=== PATIENT | female | born 2000 | race Caucasian/White ===

== ENCOUNTER 2023-06-17 19:12 | Emergency (ER) | payer OTHER, SELFPAY ==
[2023-06-17 19:13] VITALS: BP 128/81; BP 141/93; PULSE 104; PULSE 114; RESP 14; TEMP 36.1; O2SAT 98; O2SAT 99
--- NOTE | 2023-06-17 20:00 | US_ITS ---
STUDY: FIRST TRIMESTER OBSTETRICAL ULTRASOUND REASON FOR EXAM: Female, 23 years old pelvic pain, bleeding LMP: TECHNIQUE: Transvaginal TECHNICAL QUALITY: Adequate. PRIOR ULTRASOUND: None. FINDINGS: There is no evidence for intrauterine gestational sac. The uterus measures 8.4 x 5.7 x 5.1 cm. Endometrial lining is heterogeneous. There is no demonstrated uterine fibroid. The cervix is closed. The right ovary measures 3.7 x 1.8 x 1.6 cm. There is no right ovarian cyst. There is no visualized right adnexal mass or complex lesion. The left ovary measures 4.2 x 2.1 x 2.1 cm. There is no left ovarian cyst. There is no visualized left adnexal mass or complex lesion. There is no fluid in the cul de sac. US/Transvaginal w/Preg US IMPRESSION: No evidence for intrauterine gestational sac or ectopic .. Heterogeneous appearance to endometrial lining. No definitive evidence for retained products of conception however clinical correlation recommended Electronically Signed: Brandon Taylor MD at 20:48 EDT Reading Location ID and State: [address] [place] [address] Tel , Service support ,
--- NOTE | 2023-06-17 20:07 | EDS_ITS ---
HPI HPI - Female History of Present Illness Chief Complaint: Vag Bld, Preg Informant: patient Pain Pain: Positive for Pelvic Pain Onset: Today Context: Gradual Onset Timing: Continuous Quality: Positive for Cramping Location: Suprapubic Current Severity: Mild Maximum Severity: Mild Bleeding Issue: Positive for Vaginal bleeding Onset: Today (4 hrs or so) Context: Gradual Onset Current Severity: Mild Associated Symptoms Last known menstrual period: 05/08/23 Test: Positive, Urine and Home Sexually: Positive for Active and Single Partner P: 1 Ab: 0 Narrative Narrative: 23-year-old female with a positive home test last week when she missed her cycle now having pain and bleeding that started today. No other systemic symptoms. No injuries or falls. with this . Has not seen OB yet during this . Unknown blood type. No presyncope or lightheadedness. Pain is nonlateralizing. PFSH PFSH Medical History no medical history no medical history Allergy/AdvReac Type Severity Reaction Status Date / Time No Known Allergies Allergy Verified 06/17/23 19:13 Surgical History no surgical history Social History Smoking Status: Never smoker ROS ROS ED Constitutional Constitutional ED: Denies chills or fever(s) Eyes Eyes: Denies change in vision or diplopia ENT ENT ED: Denies rhinorrhea or sore throat Cardiovascular Cardiovascular: Denies chest pain, lightheadedness, palpitations or syncope Respiratory/Chest Respiratory/Chest: Denies cough or dyspnea Gastrointestinal Gastrointestinal: Reports abdominal pain; Denies diarrhea, nausea or vomiting Genitourinary Genitourinary ED: Denies dysuria or hematuria Musculoskeletal Musculoskeletal: Denies back pain or neck pain Integumentary Denies abscess or rash Neurologic Neurologic: Denies headache(s), paresthesias or weakness Psychiatric Psychiatric: Denies anxiety or suicidal thoughts EXAM Physical Exam Const Vital Signs: 06/17/23 19:13 06/17/23 19:13 06/17/23 20:13 Temperature 97 F L Temperature Source Temporal Pulse Rate 114 H 104 H 65 Respiratory Rate 14 14 18 Blood Pressure 141/93 H 128/81 H 128/82 H Blood Pressure Mean 109 96 97 Pulse Ox 99 98 97 Oxygen Delivery Method Room Air Room Air Room Air 06/17/23 21:00 Temperature Temperature Source Pulse Rate 65 Respiratory Rate 18 Blood Pressure 132/69 H Blood Pressure Mean 90 Pulse Ox 99 Oxygen Delivery Method Room Air Positive well nourished and well developed Constitutional Narrative: Well-appearing General Appearance ED: well developed and NAD HEENT Reports moist mucous membranes normocephalic and atraumatic Eyes PERRL and EOMs intact bilaterally Neck full ROM and supple Resp normal respiratory effort and clear to auscultation bilaterally Cardio regular rate, regular rhythm and no murmurs Rate: Negative for tachycardic GI non-tender and non-distended Auscultation: normoactive bowel sounds Palpation: soft Back/Spine General Back: other FROM Extremity normal to inspection General Extremety ED: Negative for edema, pulses abnormal or tenderness General Extremity: Negative for edema or pulses abnormal Neuro oriented x3, CN's II-XII intact bilaterally and no sensory deficits noted Sensorium / Orientation: awake and alert Motor Exam: strength 5/5 throughout Psych mental status grossly normal Skin no rashes or lesions noted and no wounds MDM MDM MDM Narrative Medical decision making narrative: Given the patient is only 5 weeks along, ultrasound obtained in addition to quantitative hCG to evaluate the possibility of intrauterine versus miscarriage versus ectopic, or other. Urinalysis shows no signs of infection. Quantitative hCG is 1873, indicating we should likely be seen something on ultrasound, however I reviewed the images and the report which I agree with, it basically shows no intrauterine process and no definite adnexal process. The differential here includes a completed AB, versus an early intrauterine which is unlikely given the quantitative hCG, versus an early ectopic. The next indicated test would be a 48-hour repeat quantitative hCG. Pauline morales that would put her at Tuesday night, so after discussion with Azra Peña with OB with whom the patient has an appointment next week, this will be Tuesday morning. Her blood type is O+, RhoGAM not indicated. Patient is stable clinically and hemodynamically, answered all questions at the bedside with her significant other, she is comfortable with that plan. History & Record Review Additional record(s) reviewed:: No prior records (No prior record of blood type measurement) Lab Data Attestation: I reviewed the patient's lab results. Labs: Laboratory Results - last 24 hr 06/17/23 06/17/23 19:55 20:50 HCG, Quant 1873 H Urine Color Red Urine Clarity Cloudy Urine pH 7.0 Ur Specific [place] 1.015 Urine Protein 100 H Urine Glucose (UA) Normal Urine Ketones Negative Urine Occult Blood 250 H Urine Nitrite Negative Urine Bilirubin Negative Urine Urobilinogen Normal Ur Leukocyte Esterase 25 H Urine RBC > 100 SEEN Urine WBC 0-5 SEEN Ur Squamous Epith Cells 0 SEEN Urine Bacteria RARE Urine Mucus 0 SEEN Blood Type O POSITIVE Radiography Diagnostic Testing: Clinical Impression(s) from Imaging Studies Obstetrics Ultrasound 06/17/23 20:00 IMPRESSION: No evidence for intrauterine gestational sac or ectopic .. Heterogeneous appearance to endometrial lining. No definitive evidence for retained products of conception however clinical correlation recommended Electronically Signed: Brandon Taylor MD at 20:48 EDT Reading Location ID and State: [address] [place] [address] Tel , Service support , Discharge Plan Triage Chief Complaint: Vag Bld, Preg ED Provider: Fernando Shirley Dx/Rx/DC Orders Clinical Impression: Bleeding in early Instructions: Miscarriage Threatened Primary Care Provider: Care Physician,No Primary Referrals: Azra Peña CNM [Med Staff - Adv Practice Prof] - 06/20/23 (If you do not hear from OB, call Tuesday morning to see what time they want you to come.)
[2023-06-17 20:13] VITALS: BP 128/82; PULSE 65; RESP 18; O2SAT 97
[2023-06-17 20:54] LABS: hCG Titer Quant., Serum 1873 mIU/mL (1-3)
[2023-06-17 21:00] VITALS: BP 132/69; PULSE 65; RESP 18; O2SAT 99
[2023-06-17 21:01] LABS: Mucous, Urine 0 SEEN /hpf (<or=2+); Squamous Epithelial Cells - UA 0 SEEN /hpf (5-10)
[2023-06-17 21:08] LABS: Color, Urine Red (Yellow); Glucose, Dipstick Normal (Normal); Ketone-Dipstick Negative (Negative); Leukocyte Esterase-Dipstick 25 /ul (Negative); Nitrite-Dipstick Negative (Negative); Occult Blood-Urine 250 /ul (Negative); Protein-Dipstick 100 mg/dl (Negative); Specific Gravity, Urine 1.015 (1.002-1.030); Urine Bilirubin Dipstick Negative (Negative); Urine Clarity Cloudy (Clear); Urine Urobilinogen Normal (Normal)
[2023-06-17 21:16] LABS: Red Blood Cells-Urine > 100 SEEN /hpf (0-5)
[2023-06-17 21:17] LABS: White Blood Cells 0-5 SEEN /hpf (0-5)
[2023-06-17 21:18] LABS: Bacteria RARE /hpf (None Seen)
[2023-06-17 22:00] VITALS: BP 122/80; PULSE 74; RESP 18; O2SAT 100
[2023-06-17 23:00] VITALS: BP 132/60; PULSE 85; RESP 17; O2SAT 100
[2023-06-17 23:09] VITALS: BP 118/87; PULSE 65; RESP 18; TEMP 36.6; O2SAT 97
--- NOTE | 2023-06-17 23:09 | ED.RN ---
Upon standing, pt passed large clot onto floor. Pt tearful, RN reassurance and comfort provided. Discussed with hemodialysis charge nurse and Dr. Shirley. Pt still d/c but instructed to follow up with OB on Tuesday.
== END 2023-06-17 23:10 | disposition home or self-care (01) ==
PROVIDERS: Emergency Provider Emergency Medicine; Visit Provider Emergency Medicine
DX: O20.9 Hemorrhage in early pregnancy, unspecified (principal); Z3A.00 Weeks of gestation of pregnancy not specified
CPT/HCPCS: 76817; 81001; 84702; 86900; 86901; 99283

== ENCOUNTER → 2023-06-20 | Outpatient (CLI) | payer SELFPAY ==
[2023-06-20 11:35] LABS: hCG Titer Quant., Serum 861 mIU/mL (1-3)
== END | disposition home or self-care (01) ==
PROVIDERS: Referring Provider Advanced Practice Midwife; Visit Provider Advanced Practice Midwife
DX: O20.9 Hemorrhage in early pregnancy, unspecified (principal); Z3A.00 Weeks of gestation of pregnancy not specified
CPT/HCPCS: 36415; 84702

== ENCOUNTER → 2023-07-05 | Outpatient (CLI) | payer SELFPAY ==
[2023-07-05 15:18] LABS: hCG Titer Quant., Serum 7076 mIU/mL (1-3)
== END | disposition home or self-care (01) ==
PROVIDERS: Referring Provider Advanced Practice Midwife; Visit Provider Advanced Practice Midwife
DX: O03.9 Complete or unspecified spontaneous abortion without complication (principal)
CPT/HCPCS: 36415; 84702

== ENCOUNTER → 2023-07-06 | Outpatient (CLI) | payer SELFPAY ==
--- NOTE | 2023-07-06 13:56 | US_ITS ---
STUDY: FIRST TRIMESTER OBSTETRICAL ULTRASOUND REASON FOR EXAM: Female, 23 years old r/o ectopic -- Intermittent spotting with -- HcG went down and them up LMP: May 08, 2023. TECHNIQUE: Transvaginal TECHNICAL QUALITY: Adequate. PRIOR ULTRASOUND: Comparison is made with prior sonogram dated June 17, 2023. FINDINGS: There is no demonstrated intrauterine gestational sac. There is no demonstrated yolk sac. The placenta is non-visualized. There is no demonstrated embryo ( pole). The estimated gestation age (EGA) by LMP is 8 weeks, 3 days. The estimated date of delivery (NATAN) by LMP is February 12, 2024.. The uterus measures 8 cm x 6 cm x 5 cm. The endometrium measures 16 mm. There is a 5 mm x 6 mm x 3 mm fluid collection within the endometrium. There is no demonstrated uterine fibroid. The cervix is closed. The right ovary measures 4 cm x 2.9 cm x 2.1 cm. There is no right ovarian cyst. There is no visualized right adnexal mass or complex lesion. The left ovary measures 4.9 cm x 2.6 cm x 2.2 cm. A dominant follicle is seen measuring 1.3 cm x 1.3 cm x 1 cm. This may be in keeping with regression of a corpus luteum cyst. There is no visualized left adnexal mass or complex lesion. There is no fluid in the cul de sac. US/Transvaginal w/Preg US IMPRESSION: No intrauterine gestational sac is seen. The endometrium measures 16 mm. There is a 5 mm x 6 mm x 3 mm fluid collection in the endometrium. Findings suggestive of a regressing corpus luteum cyst in the left ovary. Electronically Signed: Juan Montez MD at 15:11 EDT ,
== END | disposition home or self-care (01) ==
PROVIDERS: Referring Provider Advanced Practice Midwife; Visit Provider Advanced Practice Midwife
DX: O20.9 Hemorrhage in early pregnancy, unspecified (principal); Z3A.00 Weeks of gestation of pregnancy not specified
CPT/HCPCS: 76817

== ENCOUNTER → 2023-07-07 | Outpatient (CLI) | payer SELFPAY ==
[2023-07-07 11:14] LABS: Absolute Neutrophil Count 6.5 X10^3/uL (2.0-7.7); Basophil# 0.06 X10^3/uL; Basophil% 0.6 % (0-1); Eosinophil# 0.27 X10^3/uL; Eosinophils% 2.9 % (0-5); Hematocrit 39.6 % (37-47); Hemoglobin 12.7 g/dL (12.0-15.0); Lymphocyte % 19.2 % (19-41); Mean Corp Hgb Conc 32.1 g/dL (32-36); Mean Corpuscular Hgb 29.3 pg (27.0-32.0); Mean Corpuscular Volume 91.5 fL (81-99); Mean Platelet Vol. 9.8 fl (6.2-12.0); Monocyte# 0.74 X10^3/uL; Monocyte% 7.9 % (0-10); NRBC Flagged by Analyzer 0 % (0-5); Neutrophil # 6.46 X10^3/uL (2.7-7.7); Platelet Count 356 K/mm3 (150-450); RBC Distribution Width CV 12.8 % (11.6-14.6); RBC Distribution Width SD 42.3 fl (35.1-43.9); Red Blood Count 4.33 M/mm3 (4.2-5.4); White Blood Count 9.4 K/mm3 (4.4-11.0)
[2023-07-07 12:01] LABS: hCG Titer Quant., Serum 8889 mIU/mL (1-3)
== END | disposition home or self-care (01) ==
PROVIDERS: Referring Provider Obstetrics & Gynecology; Visit Provider Obstetrics & Gynecology
DX: O20.9 Hemorrhage in early pregnancy, unspecified (principal); Z3A.00 Weeks of gestation of pregnancy not specified
CPT/HCPCS: 36415; 84702; 85025; 86850; 86900; 86901

== ENCOUNTER 2023-07-08 05:17 | Day surgery (SDC) | payer SELFPAY ==
--- NOTE | 2023-07-07 23:36 | HP.PCM_ITS ---
History and Physical Date of Admission: 07/07/23 MR#: [id number] Acct: [id number] Name: JERMAIN BAIRES Rep #: [id number] : 2000 Provider: Dr. Laya Pugh MD Age/Sex: 23/F [place] [facility] [place]: Signed Intake Vital Signs 06/16/2418:13 07/06/2410:23 07/06/2410:30 Height 5 ft 3 in 5 ft 3 in 5 ft 3 in Weight: 174 lb BMI 30.8 BP 130/85 H Intake Visit Reasons: PER TRIAGE Roll Plugger Required: No Is patient in pain?: No Allergies No Known Allergies Allergy (Verified 07/07/23 13:36) Medications ?Medication ?Instructions ?Recorded ?Confirmed ?Type NK 07/07/23 07/07/23 History Is last menstrual period known: Yes Last Menstrual Period: 05/08/23 Post menopausal: No : No PFSH Surgical History (Updated 07/07/23 @ 11:27 by Sophie Maldonado) History of delivery Family History (Updated 07/07/23 @ 11:30 by Sophie Maldonado) Mother AsthmaGrandfather COPD (chronic obstructive pulmonary disease) Diabetes Social History (Updated 07/07/23 @ 11:29 by Sophie Maldonado) adopted: No number of children: 1 current occupational status: employed current occupation: [employer] pets and animals: Yes pets and animals: dog(s) history of recent travel: No sexually active: Yes Smoking Status: Never smoker second hand exposure: No alcohol intake: current details: not during caffeine: Yes (rarely ) what type of physical activity do you participate in: walking seatbelt use: always do you feel safe at home: Yes additional social history: Spouse - Boubacar (tommy grullon) HPI PER TRIAGE Details: JERMAIN BAIRES is a 23 year old who presents for early bleeding and abnormal change in quants. she had a positive test in early june and was seen 06/16 in the ER and her quants went from 1870 to 800s to now in the 7 000s yesterday, repeat quant today is 8800. Ultrasound whos 4-5mm smmal possible GS in the lower uterine segment and very thickened 20mm lining with increased vascularity, suspicion for partial molar or miscarriage. LMP 05/08/23 Female Reproductive History Last Menstrual Period: 05/08/23 Cycle Length: 21-35 Bleeding Duration: 5 Questions: metorrhagia: No, sexually active: Yes, dyspareunia: No and PCB: No Menopausal Symptoms: No hot flashes, No night sweats, No weight change, No mood changes, No difficulty concentrating, No sleep problems and No change in libido History 2 Elective abortions Hx Para 1 Spontaneous abortions Hx # Term Pregnancies Ectopic pregnancies Hx # Pregnancies Multiple births # of living children 1 Past Pregnancies Del. Date Name GA/Weeks Outcome Route Bth Weight Gen Labor Lgth Anesthesia Del Locatn Provider FOB 07/14/22 Bora live - full term Female Bernabe Hamlin ROS Const Constitutional: Denies fatigue, fever(s), headache(s), increased appetite, poor appetite, night sweats, weight gain or weight loss ENT ENT: Reports system reviewed and no additional complaints, except as documented Cardio Card: Denies chest pain Resp Resp: Denies cough or dyspnea GI GI: Reports as per HPI; Denies abdominal pain, constipation, nausea or vomiting : Reports as per HPI; Denies difficulty voiding, dysuria, hot flashes, nipple discharge, urinary frequency, urinary incontinence, urinary hesitancy, urinary urgency, vaginal discharge, vaginal dryness, vaginal odor or vaginal pruritus Musc Musc: Denies arthralgias, back pain or muscle weakness Skin Skin/Breast: Denies change in hair, breast mass, breast pain, breast skin changes or nipple discharge Neuro Neuro: Reports system reviewed and no additional complaints, except as docume nted Psych Psych: Reports system reviewed and no additional complaints, except as documented; Denies change in libido or difficulty concentrating Endo Endo: Denies cold intolerance, excessive sweating, heat intolerance or polydipsia Nixon/Lymph Hematologic/Lymphatic: Denies easy bleeding, Denies easy bruising and Denies lym phadenopathy Exam Const General: cooperative, healthy appearing, comfortable, no acute distress and well developed Nutritional Appearance: average body habitus Orientation: alert [facility] Head: normal to inspection and normocephalic Ears: hearing grossly normal bilaterally and external ears normal Nose: external nose normal and nares normal Face and sinus: normal facial exam Neck Neck: normal visual inspection and trachea midline Thyroid: thyroid normal Chest Chest palpation & inspection: normal inspection of the chest Resp Effort & Inspection: normal respiratory effort Cardio Rate: regular rate GI Inspection: normal to inspection and non-distended Palpation: soft and no hepatosplenomegaly General: bladder normal to palpation External Female Exam: normal external appearance and normal appearance of the urethra Urethra: normal appearance of the urethra, normal palpation and no discharge Speculum Exam - Vagina: normal appearance of the vagina and normal vaginal discharge Speculum Exam - Cervix: normal appearance of the cervix and nontender Bimanual Exam- Vagina & Uterus: normal bimanual exam, uterine size normal, bladder normal to palpation, uterine shape normal, No tender, uterine mobility normal, consistency normal, normal palpation and non-tender Bimanual Exam- Adnexa, other: normal adnexae, adnexae mobile, no masses and normal Pelvic Support: normal Musc Other: gross motor intact no deficits, full bilateral strength Skin General: no rashes or lesions noted Neuro General: patient alert, patient awake, moves all extremities and no focal motor deficits Motor: muscle tone normal throughout Extrem General: normal to inspection and no pedal edema Psych Appearance: grossly normal Mental Status: mental status grossly normal Affect: normal affect Speech and Movement: speech and movement normal Coding Level of Care Code Off vis,new,level 4 Diagnoses Incomplete O03.4 Assessment and Plan Assessment and Plan (1) Incomplete : Status: Acute Comment: possible partial mole recommend proceeding with suction d and c. Plan After discussing the patient's diagnosis and treatment plan options, patient wishes to proceed with surgical management. I have discussed with the patient the risks, benefits, and alternatives of the procedure which include but are not limited to risks of anesthesia, bleeding, infection, possible damage to bowel, bladder, or surrounding vasculature which could lead to additional surgery to evaluate any complications. Patient agrees to procedure and wishes to proceed. ACOG/uptodate references given for additional information regarding procedure. recommend being NPO and having path on hand for frozen specimen to ensure there is an IUP and not an ectopic. will perform tomorrow am, reviewed bleeding precautions for overnight if needs to come in tonight for care. 07/07/23 1050 <Electronically signed by Laya Pugh MD> Date Laya Pugh MD UPDATE- I have seen the patient and performed any clinically relevant updates to the history and physical exam. Laya Pugh MD
--- NOTE | 2023-07-08 | POC_PTH ---
PATIENT: JERMAIN BAIRES LOC: [facility] [place] U#:[id number] AGE/SX: 23/ ROOM: RE07/08/[address]: Dr. Laya Pugh MD : 2000 BED: DIS: 07/08/2023 SPEC #: [id number] RECD: 07/08/23 08:26 STATUS: TRINITY RENNY #: [id number] GERRI: 07/08/23 00:[address]: Laya Pugh DEPT: SURGICAL PATHOLOGY RECD BY: Torsten Davila ENTERED: 07/08/23 08:26 SP TYPE: PROD CONC OTHR DR: No Primary Care Phys Tissues: Product of conception, NOS Procedures: Frozen Section (charge) Surgery Specimen Level IV HEADER OPERATION: Suction, D&C, Anora testing PRE-OP DIAGNOSIS: Incomplete , partial molar TISSUE SUBMITTED: Products of conception for Anora testing and frozen section FROZEN SECTION DIAGNOSIS Products of conception, curettage: Mixed normal and hydropic villi present. MICROSCOPIC DIAGNOSIS Endometrium, curettage: Chorionic villi with focal hydropic change. AM:mr 07/12/23 COMMENT The specimen is evaluated at the time of collection by Dr. Pugh. Specimen sent to [facility] for testing. Report viewable in patient's EMR. MICROSCOPIC DESCRIPTION Slides are reviewed. GROSS DESCRIPTION Received fresh for frozen section consultation labeled with the patient's name is a specimen designated Products of conception. The specimen consists of multiple irregular fragments of pink-story soft tissue measuring in aggregate 7.0 x 7.0 x 0.6cm. Portions of the tissue are submitted for frozen section consultation in one block. Additional sales representative groceries sections are submitted for permanent in cassettes 2-9- the remainder of the specimen. BLANCA/ 07/08/2023 TC:5 CPT:93677
[2023-07-08 06:21] VITALS: BP 105/72; PULSE 88; RESP 16; TEMP 36.7; O2SAT 100; BMI 29.3
[2023-07-08] MEDS: Lactated Ringers 1,000 ML 15 ML IV (06:25)
[2023-07-08] MEDS: Doxycycline 100 MG CAPSULE PO (06:25)
[2023-07-08] MEDS: Lidocaine 1% (30 ml sdv) 30 ML Vial (07:50)
--- NOTE | 2023-07-08 08:01 | PCM.OPRPT ---
Problems Associated Problem List Diagnoses (1) Incomplete : (2) Partial hydatidiform mole: Report of Operation Date of Procedure: 07/08/23 Pre-Operative Diagnosis: see problem list Post-Operative Diagnosis: same, partial mole Surgery/Procedure Performed:: Suction dilation and curettage Description of Surgical Findings:: no FHT present, Nonviable 8 weeks Surgeon: Laya Pugh industrial analyst: None Type of Anesthesia: Local MAC Special Medications: none Specimen's removed: POC Drains: none Estimated Blood Loss (mL): 50 Fluids Replaced: crystalloid Description of Procedure: Patient was taken to the operating room and placed under MAC local anesthesia. She was prepped and draped in the normal sterile fashion the dorsal lithotomy position. Bladder was drained of clear urine and anterior lip of the cervix was grasped and the uterus sounded to 9 cm. Cervix was progressively dilated to allow passage of a 9mm suction curette. Progressive passes were made removing the retained products of conception without complication. Sharp curettage confirmed complete removal of the retained products. All instruments were removed from the vagina and excellent hemostasis was noted and the patient was taken to recovery in stable condition. Grafts/Implants Used: none Complications none Admit VTE Documentation VTE Present on Admission: No VTE Mechan Device Prophylaxis: SCD's Procedures Urinary/Genital 52xxx-59xxx: 18769 Trmt of incomplete Ab, any TM
--- NOTE | 2023-07-08 08:02 | DCINST_ITS ---
Discharge Instructions Diet Discharge Diet: No restrictions Activity Discharge Activity: Return to Normal Activity, May Shower and May Take a Tub Bath (after 1 week) May resume sexual activity in: 1-2 weeks Weight Bearing Status: Weight bearing as tolerated Lifting Restrictions: none Dressing / Incision Call your doctor if you observe: Fever of 101 or Higher, Using more than 1 pad per hour, Shortness of breath and Uncontrolled pain Follow Up Care Please Follow Up With: Laya Pugh MD When: Call [phone] to schedule appointment. Test Results: Test results from this visit will be discussed in further detail at your follow- up appointment, if applicable. Discharge Plan Admission Attending Provider: Laya Pugh Primary Care Provider: Care Physician,No Primary Instructions Print Language: Chilean Discharge Orders/Prescriptions Prescriptions: No Action NK Referrals / Follow Up: Care Physician,No Primary [Primary Care Provider] - Disposition Disposition (needs filled in before D/C Order can be placed): Home, Self Care
[2023-07-08 08:21] VITALS: BP 105/72; BP 107/67; PULSE 87; RESP 16; TEMP 36.9; O2SAT 99
[2023-07-08 08:25] VITALS: BP 105/72; BP 106/64; PULSE 88; RESP 16; O2SAT 99
[2023-07-08 08:30] VITALS: BP 105/72; BP 115/71; PULSE 72; RESP 16; TEMP 36.8; O2SAT 98
[2023-07-08 09:38] VITALS: BP 105/72
== END 2023-07-08 09:39 | disposition home or self-care (01) ==
LOC: SDC 05:19 → AC 05:19
PROVIDERS: Referring Provider Obstetrics & Gynecology; Visit Provider Obstetrics & Gynecology
PROC: (CPT 59812; principal; 2023-07-08 07:15)
DX: O03.4 Incomplete spontaneous abortion without complication (principal); O01.1 Incomplete and partial hydatidiform mole
CPT/HCPCS: 59812; 01965; 88305; 88331; J7120; J2405

== ENCOUNTER → 2023-07-15 | Outpatient (CLI) | payer SELFPAY ==
[2023-07-15 09:33] LABS: hCG Titer Quant., Serum 142 mIU/mL (1-3)
== END | disposition home or self-care (01) ==
LOC: LAB 08:24
PROVIDERS: Visit Provider Obstetrics & Gynecology
DX: O03.4 Incomplete spontaneous abortion without complication (principal)
CPT/HCPCS: 36415; 84702

== ENCOUNTER → 2023-07-22 | Outpatient (CLI) | payer SELFPAY ==
[2023-07-22 11:15] LABS: hCG Titer Quant., Serum 12 mIU/mL (1-3)
== END | disposition home or self-care (01) ==
LOC: PAVLAB 10:30
PROVIDERS: Referring Provider Obstetrics & Gynecology; Visit Provider Obstetrics & Gynecology
DX: O03.4 Incomplete spontaneous abortion without complication (principal)
CPT/HCPCS: 36415; 84702

== ENCOUNTER → 2023-07-29 | Outpatient (CLI) | payer SELFPAY ==
[2023-07-29 10:52] LABS: hCG Titer Quant., Serum 2 mIU/mL (1-3)
== END | disposition home or self-care (01) ==
LOC: PAVLAB 10:07
PROVIDERS: Visit Provider Obstetrics & Gynecology
DX: O03.4 Incomplete spontaneous abortion without complication (principal)
CPT/HCPCS: 36415; 84702

== ENCOUNTER → 2024-02-20 | Outpatient (CLI) | payer SELFPAY ==
[2024-02-20 09:17] LABS: hCG Titer Quant., Serum 559 mIU/mL (1-3)
== END | disposition home or self-care (01) ==
PROVIDERS: Referring Provider Obstetrics & Gynecology; Visit Provider Obstetrics & Gynecology
DX: Z34.90 Encounter for supervision of normal pregnancy, unspecified, unspecified trimester (principal)
CPT/HCPCS: 36415; 84702

== ENCOUNTER → 2024-02-22 | Outpatient (CLI) | payer SELFPAY ==
[2024-02-22 10:54] LABS: hCG Titer Quant., Serum 1012 mIU/mL (1-3)
== END | disposition home or self-care (01) ==
LOC: LAB 09:04
PROVIDERS: Referring Provider Obstetrics & Gynecology; Visit Provider Obstetrics & Gynecology
DX: Z34.90 Encounter for supervision of normal pregnancy, unspecified, unspecified trimester (principal)
CPT/HCPCS: 36415; 84702

== ENCOUNTER → 2024-02-27 | Outpatient (CLI) | payer SELFPAY ==
[2024-02-27 10:02] LABS: hCG Titer Quant., Serum 5287 mIU/mL (1-3)
== END | disposition home or self-care (01) ==
PROVIDERS: Referring Provider Obstetrics & Gynecology; Visit Provider Obstetrics & Gynecology
DX: Z34.90 Encounter for supervision of normal pregnancy, unspecified, unspecified trimester (principal); Z3A.00 Weeks of gestation of pregnancy not specified
CPT/HCPCS: 36415; 84702

== ENCOUNTER → 2024-03-05 | Outpatient (CLI) | payer SELFPAY ==
--- NOTE | 2024-03-05 07:08 | US_ITS ---
INDICATION: viability, dating EXAMINATION: Ultrasound US OB Transvaginal TECHNIQUE: Transvaginal (for optimal evaluation of the adnexa) pelvic ultrasound was performed. Grayscale, spectral waveform, and color flow Doppler evaluation of the adnexa. COMPARISON: July 06, 2023 LMP: [January 17, 2024 FINDINGS: UTERUS: 10.0 x 6.7 x 5.1 cm. RIGHT OVARY: 2.8 x 3.8 x 3.0 cm. Doppler flows within normal limits. There appears to be a corpus luteal cyst within the right ovary. LEFT OVARY: 2.2 x 3.8 x 2.4 cm. Doppler flows within normal limits. FREE FLUID: None. INTRAUTERINE GESTATIONAL SAC: Single. The mean sac diameter measures 1.73 cm YOLK SAC: Identified and measures 0.34 cm. POLE: Identified. 0.47 cm. ESTIMATED GESTATION AGE: 6 weeks and 4 days. HEART MOTION: 117 bpm. PLACENTA: Not visualized due to age. US/Transvaginal w/Preg US IMPRESSION: Single live intrauterine . Estimated gestational age is 6 weeks and 4 days. Electronically Signed: Ira Li MD at 8:08 EST ,
[2024-03-05 09:35] LABS: hCG Titer Quant., Serum 20796 mIU/mL (1-3)
== END | disposition home or self-care (01) ==
PROVIDERS: Obstetrics & Gynecology; Referring Provider Nurse Practitioner Women's Health; Visit Provider Nurse Practitioner Women's Health
DX: Z34.90 Encounter for supervision of normal pregnancy, unspecified, unspecified trimester (principal)
CPT/HCPCS: 36415; 76817; 84702

== ENCOUNTER → 2024-03-16 | Outpatient (CLI) | payer SELFPAY ==
[2024-03-19 21:06] LABS: Chlamydia By Nucleic Acid AMP Negative (Negative); Gonococcus By Nucleic Acid AMP Negative (Negative)
[2024-03-23 13:02] LABS: HPV Reflexed? NOT INDICATED
== END | disposition home or self-care (01) ==
PROVIDERS: Referring Provider Obstetrics & Gynecology; Visit Provider Obstetrics & Gynecology
DX: O09.90 Supervision of high risk pregnancy, unspecified, unspecified trimester (principal); Z3A.00 Weeks of gestation of pregnancy not specified
CPT/HCPCS: 87086; 87088; 87491; 87591; 88175; G0145

== ENCOUNTER → 2024-03-29 | Outpatient (CLI) | payer SELFPAY ==
[2024-03-29 12:29] LABS: Absolute Lymphocyte Count 1.68 X10^3/uL (0.83-4.51); Absolute Neutrophil Count 7.5 X10^3/uL (2.0-7.7); Basophil# 0.06 X10^3/uL; Basophil% 0.6 % (0-1); Eosinophil# 0.42 X10^3/uL; Hematocrit 38.5 % (37-47); Hemoglobin 12.7 g/dL (12.0-15.0); Lymphocyte # 1.68 X10^3/ul (0.83-4.51); Lymphocyte % 16.1 % (19-41); Mean Corpuscular Hgb 29.7 pg (27.0-32.0); Mean Corpuscular Volume 90.2 fL (81-99); Mean Platelet Vol. 10.2 fl (6.2-12.0); Monocyte# 0.79 X10^3/uL; Monocyte% 7.6 % (0-10); NRBC Flagged by Analyzer 0 % (0-5); Neutrophil # 7.47 X10^3/uL (2.7-7.7); Neutrophil % 71.3 % (47-70); Platelet Count 322 K/mm3 (150-450); RBC Distribution Width CV 12.6 % (11.6-14.6); RBC Distribution Width SD 41.1 fl (35.1-43.9); Red Blood Count 4.27 M/mm3 (4.2-5.4); White Blood Count 10.5 K/mm3 (4.4-11.0)
[2024-03-29 13:08] LABS: HIV - WCH Non-Reactive (Nonreactive); Hepatitis B Surface Antigen Non-Reactive (Nonreactive); Hepatitis C Antibody Non-Reactive (Nonreactive); Rubella IgG Reactive (Nonreactive); Syphilis Antibodies Non-reactive
[2024-03-29 13:58] LABS: Hemoglobin A1c 5.1 % (3.8-5.6)
== END | disposition home or self-care (01) ==
LOC: BWCLAB 11:26
PROVIDERS: Obstetrics & Gynecology; Referring Provider Obstetrics & Gynecology; Visit Provider Obstetrics & Gynecology
DX: O99.211 Obesity complicating pregnancy, first trimester (principal); E66.9 Obesity, unspecified; Z3A.00 Weeks of gestation of pregnancy not specified; O09.91 Supervision of high risk pregnancy, unspecified, first trimester
CPT/HCPCS: 36415; 83036; 85025; 86703; 86762; 86780; 86803; 86850; 86900; 86901; 87340

== ENCOUNTER → 2024-07-30 | Outpatient (CLI) | payer SELFPAY ==
[2024-07-30 17:13] LABS: Absolute Lymphocyte Count 1.89 X10^3/uL (0.83-4.51); Absolute Neutrophil Count 8.2 X10^3/uL (2.0-7.7); Basophil# 0.05 X10^3/uL; Basophil% 0.5 % (0-1); Eosinophil# 0.17 X10^3/uL; Eosinophils% 1.5 % (0-5); Hematocrit 32.6 % (37-47); Hemoglobin 10.6 g/dL (12.0-15.0); Lymphocyte # 1.89 X10^3/ul (0.83-4.51); Mean Corp Hgb Conc 32.5 g/dL (32-36); Mean Corpuscular Hgb 30.1 pg (27.0-32.0); Mean Corpuscular Volume 92.6 fL (81-99); Mean Platelet Vol. 10.3 fl (6.2-12.0); Monocyte# 0.67 X10^3/uL; NRBC Flagged by Analyzer 0 % (0-5); Neutrophil # 8.23 X10^3/uL (2.7-7.7); Neutrophil % 74.3 % (47-70); Platelet Count 283 K/mm3 (150-450); RBC Distribution Width CV 13.9 % (11.6-14.6); RBC Distribution Width SD 46.8 fl (35.1-43.9); Red Blood Count 3.52 M/mm3 (4.2-5.4); White Blood Count 11.1 K/mm3 (4.4-11.0)
[2024-07-30 17:45] LABS: Glucose Challenge Gest 1H 50g 114 mg/dL (70-140); HIV Nonreactive (Nonreactive); Syphilis Antibodies Nonreactive (Nonreactive)
== END | disposition home or self-care (01) ==
LOC: BWCLAB 15:31
PROVIDERS: Obstetrics & Gynecology; Referring Provider Obstetrics & Gynecology; Visit Provider Obstetrics & Gynecology
DX: O09.92 Supervision of high risk pregnancy, unspecified, second trimester (principal); Z13.1 Encounter for screening for diabetes mellitus; Z3A.00 Weeks of gestation of pregnancy not specified
CPT/HCPCS: 36415; 82950; 85025; 86703; 86780

== ENCOUNTER → 2024-09-24 | Outpatient (CLI) | payer SELFPAY | END | disposition home or self-care (01) | LOC: LABSPEC 15:25 | PROVIDERS: Referring Provider Advanced Practice Midwife; Visit Provider Advanced Practice Midwife | DX: O09.93 Supervision of high risk pregnancy, unspecified, third trimester (principal); Z3A.35 35 weeks gestation of pregnancy | CPT/HCPCS: 87081 ==

== ENCOUNTER 2024-10-20 04:45 | Inpatient (IN) | payer SELFPAY ==
[2024-10-20] VITALS (50 sets, daily range): BP systolic 105–153; BP diastolic 57–88; PULSE 79–149; RESP 14–18; TEMP 36.3–37.1; O2SAT 77–100; BMI 39.3
--- OUTSIDE RECORDS SUMMARY | 2024-10-20 04:20 | XMS RPT_ITS | CCD ---
Author Organization [facility] Team Providers Care Oral Surgery Physician Name Role Phone O'VILLALBA, MIRIAM CARD SERVICES SPECIALIST Primary Care Unavailable O'VILLALBA, MIRIAM CARD SERVICES SPECIALIST Attending Unavailable O'VILLALBA, MIRIAM CARD SERVICES SPECIALIST Admitting Unavailable O'VILLALBA, MIRIAM CARD SERVICES SPECIALIST Primary Care Unavailable O'VILLALBA, MIRIAM CARD SERVICES SPECIALIST Attending Unavailable O'VILLALBA, MIRIAM CARD SERVICES SPECIALIST Admitting Unavailable O'VILLALBA, MIRIAM CARD SERVICES SPECIALIST Primary Care Unavailable O'VILLALBA, MIRIAM CARD SERVICES SPECIALIST Attending Unavailable O'VILLALBA, MIRIAM CARD SERVICES SPECIALIST Admitting Unavailable PHYSICIAN, NONE Primary Care Physician Unavailab varun CIFUENTES MD, CASH Gutierrez Attending Unavailab le PHYSICIAN, NONE Primary Care Unavailable DAYTON REYNOSO, TERE Attending Unavail able PHYSICIAN, NONE Primary Care Unavailable KHADIJAH NEVAREZ MD Consulting Unavailable LIONEL DO, HILARY Lo Admitting Unavailable MARCIN BENNETT Attending Unavailable PHYSICIAN, NONE Primary Care Unavailable ROBIN LOCKWOOD, DR BARBARA Paiz Consulting Unavailjoycelyn RAMÍREZ MD, ESTEVAN Consulting Unavailable FRANK LOCKWOOD, JOMAR Consulting Unavailable PALUTSYEIMY OLIVA DO Consulting Unavail able ILIANA SZYMANSKI, FEDERICO Attending Unavailable PHYSICIAN, NONE Primary Care Unavailable NO PRIMARY CARE, MD Primary Care Unavailable ZEN SIMPSON Attending Unavailable JORGE VALENTE S Referring Unavailable Care Physician, No Primary Primary Care Provider Unavailable Care Physician, No Primary Referring Provider Un available Dr. Holly Lindsey DO Attending Provider Dr. Holly Lindsey DO Referring Provider Dr. Laya Pugh MD Attending Provider [phone] Dr. Laya Pugh MD Referring Provider [phone] Jorge Valente CNM Attending Provider [phone] Linh Duffy Attending Provider [phone] Care Physician, No Primary Primary Care Provider Unavailable Care Physician, No Primary Referring Provider Un available Dr. Laya Pugh MD Attending Provider [phone] Vaibhav Ramirez DO, Dr. Barrera Attending Provider Dr. Laya Pugh MD Referring Provider [phone] Care Physician, No Primary Primary Care Provider Unavailable Care Physician, No Primary Referring Provider Un available Casey CNJorge Lo Attending Provider [phone] Care Physician, No Primary Primary Care Provider Unavailable Care Physician, No Primary Referring Provider Un available [place] CARD SERVICES SPECIALIST-CLinh Attending Provider [phone] Casey CNM, Jorge Referring Provider [phone] Care Physician, No Primary Primary Care Provider Unavailable Care Physician, No Primary Referring Provider Un available Keaton LOCKWOOD, Dr. Asif Attending Provider Care Physician, No Primary Referring Unava ilable Jorge Valente Attending Unavailable Care Physician, No Primary Primary Care Unava ilable Care Physician, No Primary Referring Unava ilable Laya Pugh Attending Unavailable Care Physician, No Primary Primary Care Unava ilable [place] CARD SERVICES SPECIALIST, Linh Attending Unavailable Care Physician, No Primary Primary Care Unava ilable Care Physician, No Primary Referring Unava ilable Care Physician, No Primary Primary Care Unava ilable Care Physician, No Primary Referring Unava ilable Jorge Valente Attending Unavailable Care Physician, No Primary Primary Care Unava ilable Laya Pugh Attending Unavailable Laya Pugh Referring Unavailable Care Physician, No Primary Primary Care Unava ilable [place] CARD SERVICES SPECIALIST, Linh Referring Unavailable [place] CARD SERVICES SPECIALIST, Linh Attending Unavailable Holly Lindsey Consulting Unavailabl e Laya Pugh Consulting Unavailable Holly Lindsey Admitting Unavailabl e Holly Lindsey Attending Unavailabl e Care Physician, No Primary Primary Care Unava ilable Care Physician, No Primary Primary Care Unava ilable Laya Pugh Attending Unavailable Laya Pugh Referring Unavailable Care Physician, No Primary Primary Care Unava ilable Laya Pugh Attending Unavailable Laya Pugh Referring Unavailable Jorge Valente Referring Unavailable Jorge Valente Attending Unavailable Care Physician, No Primary Primary Care Unava ilable Care Physician, No Primary Primary Care Unava ilable Care Physician, No Primary Referring Unava ilable Holly Lindsey Attending Unavailabl e Care Physician, No Primary Referring Unava ilable Care Physician, No Primary Primary Care Unava ilable Jorge Valente Attending Unavailable Care Physician, No Primary Referring Unava ilable [place] CARD SERVICES SPECIALIST, Linh Attending Unavailable Care Physician, No Primary Primary Care Unava ilable Care Physician, No Primary Referring Unava ilable Care Physician, No Primary Primary Care Unava ilable Laya Pugh Attending Unavailable Sebastiene VelHolly jerez Attending Unavailabl e Care Physician, No Primary Primary Care Unava ilable Care Physician, No Primary Referring Unava ilable Care Physician, No Primary Primary Care Unava ilable Marcela Patrick Attending Unavailable [place] CARD SERVICES SPECIALIST, Linh Attending Unavailable Care Physician, No Primary Primary Care Unava ilable Care Physician, No Primary Referring Unava ilable Holly Lindsey Attending Unavailabl e Care Physician, No Primary Primary Care Unava ilable Care Physician, No Primary Referring Unava ilable Care Physician, No Primary Referring Unava ilable Care Physician, No Primary Primary Care Unava ilable Jorge Valente Attending Unavailable Care Physician, No Primary Referring Unava ilable Laya Pugh Attending Unavailable Care Physician, No Primary Primary Care Unava ilable Care Physician, No Primary Primary Care Unava ilable Laya Pugh Attending Unavailable Laya Pugh Referring Unavailable Care Physician, No Primary Primary Care Unava ilable Holly Lindsey Referring Unavailabl e Holly Lindsey Attending Unavailabl e Care Physician, No Primary Primary Care Unava ilable Laya Pugh Attending Unavailable Marcchristel, Laya Referring Unavailable Medications Current Medications Medication Drug Class(es) Dates Sig (Normalized) Sig (Original) acetaminophen 325 mg / oxyCODONE hydrochloride 5 mg oral tablet (1 source) Opioid Agonist Start: 09-28-2021 End: 10-01-2021 take 1 tablet by mouth every six hours as needed for pain Percocet 5 mg-325 mg oral tablet Dose = 1 tab(s), Oral, q6h, PRN for pain, # 10 tab(s), 0 Refill(s), Post-op pain, 72.4 Start Date: 09/28/21 Stop Date: 10/01/21 Status: Ordered amoxicillin 500 mg oral capsule (1 source) Penicillin-class Antibacterial Start: 07-17-2022 End: 07-22-2022 amoxicillin 500 mg oral capsule Dose : 500 mg = 1 cap(s), Oral, q8hr, X 5 day(s), # 15 cap(s), 0 Refill(s), 07/22/22 4:00:00 EDT, [facility]: [id number], 160.6, cm, 07/12/22 11:28:00 EDT, Height Start Date: 07/17/22 Stop Date: 07/22/22 Status: Ordered ascorbic acid 1000 mg oral tablet (2 sources) Vitamin C Start: 09-28-2021 take 1 dose by mouth once daily Vitamin C Dose : 1,000 mg =, Oral, qDay, 0 Refill(s) Start Date: 09/28/21 Status: Ordered cholecalciferol 0.01 mg oral capsule (11 sources) Vitamin D Start: 03-02-2024 take 1 capsule by mouth once daily Cholecalciferol (Vitamin D3) 10 mcg (400 unit) capsule Active 10 ug PO daily March 02, 2024 1:00am docosahexaenoic acid 200 mg oral capsule (11 sources) Start: 03-02-2024 Docosahexaenoic Acid ( Dha) 200 mg capsule Active mg PO March 02, 2024 1:00am docusate sodium 100 mg oral tablet (1 source) Start: 09-28-2021 docusate sodium 100 mg oral tablet Dose : 100 mg = 1 tab(s), Oral, BID, # 40 tab(s), 0 Refill(s) Start Date: 09/28/21 Status: Ordered evening primrose oil 1000 mg oral capsule (2 sources) Start: 09-28-2021 take 1 capsule by mouth once daily Evening [place] Oil 1000 mg oral capsule Dose : 2,600 mg =, Oral, Daily, 0 Refill(s) Start Date: 09/28/21 Status: Ordered ferrous sulfate 325 mg oral tablet (7 sources) Start: 09-11-2024 take 1 tablet by mouth once daily Ferrous Sulfate 325 mg (65 mg iron) tablet Active 325 mg PO daily September 11, 2024 12:00am Start: 07-11-2022 IRON (ferrous sulfate 325 mg) 65 mg oral tablet Dose : 325 mg = 1 tab(s), Oral, BIDM, Take with food., # 60 tab(s), 3 Refill(s) Start Date: 07/11/22 Status: Ordered Fish Oils (1 source) Start: 09-28-2021 take 1 dose by mouth once daily [place]-3 Fish Oil Dose : 3,200 mg =, Oral, qDay, 0 Refill(s) Start Date: 09/28/21 Status: Ordered Folic Acid (1 source) Start: 07-11-2022 folic acid qDa y, 0 Refill(s) Start Date: 07/11/22 Status: Ordered ibuprofen 600 mg oral tablet (2 sources) Nonsteroidal Anti-inflammatory Drug Start: 07-17-2022 End: 07-31-2022 ibuprofen 600 mg oral tablet Dose : 600 mg = 1 tab(s), Oral, q6h, Take with food or milk., # 60 tab(s), 0 Refill(s), [facility]: [facility] #[id number], 160.6, cm, 07/12/22 11:28:00 EDT, Height, kg, 07/12/22 11:28:00 EDT, Dosing Weight Start Date: 07/17/22 Stop Date: 07/31/22 Status: Ordered Start: 09-28-2021 ibuprofen 600 mg oral tablet Dose : 600 mg = 1 tab(s), Oral, q6hr, PRN as needed for pain, Take with food or milk., # 40 cap(s), 0 Refill(s) Start Date: 09/28/21 Status: Ordered metroNIDAZOLE 500 mg oral tablet (1 source) Nitroimidazole Antimicrobial Start: 07-17-2022 End: 07-22-2022 metroNIDAZOLE 500 mg oral tablet Dose : 500 mg = 1 tab(s), Oral, q12h, X 5 day(s), # 10 tab(s), 0 Refill(s), 07/22/22 4:00:00 EDT, [facility]: [id number], 160.6, cm, 07/12/22 11:28:00 EDT, Height, 89 Start Date: 07/17/22 Stop Date: 07/22/22 Status: Ordered Misc Medication (2 sources) Start: 09-28-2021 Misc Medicatio n 0 Refill(s) Start Date: 09/28/21 Status: Ordered Start: 09-28-2021 [facility] [place] Medicatio n 0 Refill(s) Start Date: 09/28/21 Status: Ordered Organ Concentrates 80 mg capsule (11 sources) Start: 08-02-2023 Organ Concentr ates 80 mg capsule Active mg PO August 02, 2023 12:00am oxyCODONE hydrochloride 5 mg oral tablet (1 source) Opioid Agonist Start: 07-17-2022 End: 07-23-2022 oxyCODONE 5 mg oral tablet ( IMMEDIATE release ) Dose : 5 mg = 1 tab(s), Oral, q6hr, X 6 day(s), # 24 tab(s), 0 Refill(s), 07/23/22 4:01:00 EDT, [facility]: [facility] #[id number], Post-op pain, 160.6, cm, 07/12/22 11:28:00 EDT, Height, 89, kg, 07/12/22 11:28:00 EDT, Dosing Weight Start Date: 07/17/22 Stop Date: 07/23/22 Status: Ordered Multivitamins with Vitamin B Complex, Vitamin C, Minerals and L-Methylfolate oral capsule (2 sources) Start: 09-28-2021 take 1 capsule by mouth once daily Multivitamins with Vitamin B Complex, Vitamin C, Minerals and L-Methylfolate oral capsule Dose = 1 cap(s), Oral, Daily, 0 Refill(s) Start Date: 09/28/21 Status: Ordered Probiotic (1 source) Start: 09-28-2021 take 173 mg by mouth once daily Probiotic 173 mg, Oral, Daily, 0 Refill(s) Start Date: 09/28/21 Status: Ordered sennosides, half-way 8.6 mg oral tablet (1 source) Start: 07-17-2022 End: 08-06-2022 Senokot 8.6 mg oral tablet Dose : 8.6 mg = 1 tab(s), Oral, qHS, PRN for constipation, # 20 tab(s), 0 Refill(s), Pharmacy: [facility] #[id number], 160.6, cm, 07/12/22 11:28:00 EDT, Height, kg, 07/12/22 11:28:00 EDT, Dosing Weight Start Date: 07/17/22 Stop Date: 08/06/22 Status: Ordered Vitamin D with Minerals oral tablet (1 source) Start: 09-28-2021 take 1 tablet by mouth once daily Vitamin D with Minerals oral tablet Dose = 1 tab(s), Oral, qDay, # 30 tab(s), 0 Refill(s) Start Date: 09/28/21 Status: Ordered Problems Active Problems Problem Classification Problem Date Documented Date Episodic/Chronic Asthma (1 source) Asthma; Translations: [Unspecified asthma, uncomplicated] Chronic Contraceptive and procreative management (3 sources) Encounter for procreative management, unspecified; Translations: [Encounter for procreative management, unspecified] Onset: 06-19-2021 Episodic Female infertility (1 source) Female infertility, unspecified; Translations: [Female infertility, unspecified] Onset: 07-30-2021 Chronic Genitourinary symptoms and ill-defined conditions (1 source) Blood in urine; Translations: [Hematuria, unspecified] Episodic Hemorrhage during ; abruptio placenta; placenta previa (12 sources) Antepartum hemorrhage; Translations: [Hemorrhage in early , unspecified] 06-17-2023 Episodic Other complications of ; puerperium affecting management of mother (1 source) Labor and delivery complication by meconium in amniotic fluid; Translations: [Labor and delivery complicated by meconium in amniotic fluid] Episodic Other complications of ; puerperium affecting management of mother (1 source) Puerperal sepsis; Translations: [Puerperal sepsis] Episodic Other complications of ; puerperium affecting management of mother (1 source) Labor and delivery complicated by heart rate anomaly with meconium in amniotic fluid; Translations: [Abnormality in heart rate and rhythm complicating labor and delivery] Episodic Other complications of ; puerperium affecting management of mother (1 source) Encounter for delivery without indication; Translations: [Encounter for delivery without indication] Episodic Other complications of ; puerperium affecting management of mother (1 source) Disease of the respiratory system complicating , childbirth and/or the puerperium; Translations: [Diseases of the respiratory system complicating childbirth] Episodic Other complications of (20 sources) Maternal obesity complicating , childbirth and the puerperium, antepartum; Translations: [Obesity complicating , unspecified trimester] 05-09-2024 Chronic Comment on above: BMI 30.1, HgBA1C ord ered w/NOB Other complications of (1 source) Obesity complicating , second trimester; Translations: [Obesity complicating , second trimester] Onset: 10-16-2024 Chronic Other complications of (1 source) Obesity complicating , unspecified trimester; Translations: [Obesity complicating , unspecified trimester] Onset: 04-13-2024 Chronic Other complications of (1 source) Antepartum deep vein thrombosis; Translations: [Deep phlebothrombosis in , third trimester] Episodic Other complications of (1 source) condition affecting obstetrical care of mother; Translations: [Maternal care for abnormalities of the heart rate or rhythm, unspecified trimester, not applicable or unspecified] Episodic Other complications of (20 sources) High risk ; Translations: [Supervision of high risk , unspecified, unspecified trimester] 05-09-2024 Episodic Comment on above: PRR, , NATAN 10/23, PC: Bora, : Boubacar PRR, , NATAN 10/23, girl (name secret) PC: Bora, : Boubacar Other complications of (11 sources) Partial hydatidiform mole; 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 pat hology showed some hydropic villi- hcg negative. repeat in 1 month and if still negative can conceive. Other complications of (1 source) Supervision of high risk , unspecified, third trimester; Translations: [Supervision of high risk , unspecified, third trimester] Onset: 10-16-2024 Episodic Other complications of (1 source) Supervision of high risk , unspecified, second trimester; Translations: [Supervision of high risk , unspecified, second trimester] Onset: 08-15-2024 Episodic Other lower respiratory disease (20 sources) H/O: asthma; Translations: [Personal history of other diseases of the respiratory system] 03-02-2024 Episodic Comment on above: Childhood Other lower respiratory disease (1 source) Personal history of other diseases of the respiratory system; Translations: [Personal history of other diseases of the respiratory system] Onset: 10-16-2024 Episodic Other nutritional; endocrine; and metabolic disorders (1 source) Body mass index 30+ - obesity 07-12-2022 Chronic Other screening for suspected conditions (not mental disorders or infectious disease) (3 sources) Finding of screening status; Translations: [Encounter for screening, unspecified] Onset: 06-17-2022 Episodic Previous (1 source) Maternal care for unspecified type scar from previous delivery; Translations: [Maternal care for unspecified type scar from previous delivery] Onset: 10-16-2024 Episodic Residual codes; unclassified (1 source) Gestation period, 37 weeks; Translations: [37 weeks gestation of ] Episodic Residual codes; unclassified (1 source) Gestation period, 39 weeks; Translations: [39 weeks gestation of ] Episodic Residual codes; unclassified (20 sources) History of molar ; Translations: [Personal history of other complications of , childbirth and the puerperium] 03-16-2024 Episodic Comment on above: June 2023- after andreas very draw hcg to zero Residual codes; unclassified (1 source) Personal history of other complications of , childbirth and the puerperium; Translations: [Personal history of other complications of , childbirth and the puerperium] Onset: 10-16-2024 Episodic Residual codes; unclassified (1 source) 39 weeks gestation of ; Translations: [39 weeks gestation of ] Onset: 10-16-2024 Episodic Residual codes; unclassified (1 source) 38 weeks gestation of ; Translations: [38 weeks gestation of ] Onset: 10-11-2024 Episodic Residual codes; unclassified (1 source) 37 weeks gestation of ; Translations: [37 weeks gestation of ] Onset: 10-02-2024 Episodic Residual codes; unclassified (1 source) 35 weeks gestation of ; Translations: [35 weeks gestation of ] Onset: 09-24-2024 Episodic Residual codes; unclassified (1 source) 30 weeks gestation of ; Translations: [30 weeks gestation of ] Onset: 08-15-2024 Episodic Septicemia (except in labor) (1 source) Sepsis; Translations: [Sepsis, unspecified organism] Episodic Spontaneous (11 sources) with abortive outcome; Translations: [Incomplete spontaneous without complication] 08-02-2023 Episodic Comment on above: possible retained pr oducts or possible partial mole recommend proceeding with suction d and c. Umbilical cord complication (1 source) Umbilical cord complication during labor and delivery; Translations: [Labor and delivery complicated by cord around neck, without compression, not applicable or unspecified] Episodic Past or Other Problems Problem Classification Problem Date Documented Da te Episodic/Chronic Other complications of (1 source) Supervision of high risk , unspecified, unspecified trimester; Translations: [Supervision of high risk , unspecified, unspecified trimester] Onset: 04-13-2024 Episodic Other and delivery including normal (20 sources) ; Translations: [Encounter for supervision of normal first , unspecified trimester] Onset: 05-06-2022 07-12-2022 Episodic Comment on above: System added from do cumentation. Status documented as Yes on Admission NIPT low risk gbs neg, NIPT low ri sk Residual codes; unclassified (1 source) 12 weeks gestation of ; Translations: [12 weeks gestation of ] Onset: 04-13-2024 Episodic Results Test Name Value Interpretation Reference Range Facility [facility] Visit Reporton 10-16-2024 [facility] Visit Report [facility] [address], [address] [place] [address] OFFICE VISIT Date of Service: 10/16/24 MR#: [id number] Acct: [id number] Name: JERMAIN GERARD Rep #: [id number] 2 : 2000 Provider: Dr. Laya black MD Age/Sex: 24/F Location: [facility] Status: Signed Intake Vital Signs 08/28/24 14:41 10/11/24 07:57 10/16/24 13:32 Height 5 ft 5 in 5 ft 5 in 5 ft 5 in Weight: 220 lb 9 oz BMI 36.7 BP 123/77 H Intake Visit Reasons: 39wk ob Vp Scientific Required: No Is patient in pain?: No Allergies No Known Allergies Allergy (Verified 10/16/24 13:35) Medications ???Medication ???Instructions ???Recorded ???Confirmed ???Type organ concentrates 80 mg capsule mg PO 08/02/23 10/16/24 History cholecalciferol (vitamin D3) 10 10 mcg PO QDAY 03/02/24 10/16/24 H istory mcg (400 unit) capsule docosahexaenoic acid 200 mg mg PO 03/02/24 10/16/24 History capsule ( DHA) ferrous sulfate 325 mg (65 mg 325 mg PO QDAY 09/11/24 10/16/24 H istory iron) tablet Last Menstrual Period: 01/17/24 Zika: Zika virus screening: Negative : No PFSH PFSH Medical History Early stage of Partial hydatidiform mole Wears glasses Surgical History S/P D C (status post dilation and curettage) H/O laparoscopy History of delivery Family History Mother Asthma Grandfather COPD (chronic obstructive pulmonary disease) Diabetes Social History adopted: No household members: spouse and children number of children: 1 current occupational status: employed 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/hazards: No pets and animals: Yes pets and animals: dog(s) history of recent travel: Yes ([place] - Beginning of Feb 2024) out of state: Yes out of country: No sexually active: Yes Smoking Status: Never smoker second hand exposure: No alcohol intake: current alcohol intake frequency: holidays/special occasions only details: not during substance use type: does not use well-balanced diet: daily or most days caffeine: Yes eating out: rarely or never during the past year weight has: remained stable what type of physical activity do you participate in: walking frequency: 3-4 times per week duration: 15-30 minutes/day jerome/presybeterian: None seatbelt use: always do you feel safe at home: Yes additional social history: : Boubacar grullon History 3 Elective abortions Hx Para 1 Spontaneous abortions 1 Hx # Term Pregnancies Ectopic pregnancies Hx # Pregnancies Multiple births # of living children 1 Past Pregnancies Del. Date Name GA/Weeks Outcome Route Bth Weight Infant Gen Labor Lgth Anesthesia Del Locatn Provider FOB 07/14/22 Bora 39 live - full term 8lbs 6oz Female epidural Aultm an Dr. Deja Hamlin 06/08/23 6 molar Delivery Date: 07/14/22 Last Updated by: Marcela Patrick RN Csec d/t stuck in canal mec aspirate - NICU x6days Delivery Date: 06/08/23 Last Updated by: Marcela Patrick RN D C @ about 8weeks HPI 39wk ob Details: JERMAIN GERARD is a 24 year old who presents for routine OB visit. OB Visit NATAN Calculator Estimated Delivery Date Method Current WG Current Estimate 10/23/24 LMP (Certain) 39w 0d Other Estimates 10/25/24 Ultrasound #1 38w 5d Expected Delivery Route/Plan wants to try patient counseled regarding risks/benefits of trial of labor versus repeat . ACOG/uptodate education given to patient. 65 % likelihood of success per calculator TOLAC consent form signed: [] Specific Issue/Plans Covid status: [] Flu vaccine: [] Tdap vaccine: declined Rhogam: NA LARC form signed: yes Problem list reviewed and updated with the most current plan of care details and appropriate orders placed. Relevant counseling for the gestational age provided. Continue routine care and follow up unless otherwise noted in visit notes/problem list details Initial Weight: 192 lb Date -???-???-???-???-???- ???-???-???-???-???-? ??-???- EGA Weight BP Urine Prot -???-???-???-???-???- ???-???-???-???-???-? ??-???- Glucose FHR FuHt Pres Dilation -???-???-???-???-???- ???-???-???-???-???-? ??-???- Effaced St Visit Note 03/16/24 -???-???-???-???-???- ???-???-???-???-???-? ??-???- 8w 3d 192 lb 6 oz (+6 oz) 119/79 -???-???-???-???-???- ???-???-???-???-???-? ??-???- 165 -???-???-???-???-???- ???-???-???-???-???-? ??-???- JV- CRL cons istent with first ultrasoun (more content not included)... Normal [facility] - Chemistry and C hemistry - challengeOrdered By: Jorge Valente on 10-11-2024 Glucose Ql (U) Negative [facility] - UrinalysisOrder ed By: Jorge Valente on 10-11-2024 Protein Ql (U) Negative [facility] Visit Reporton 10-11-2024 [facility] Visit Report [facility] [address], [address] [place] [address] OFFICE VISIT Date of Service: 10/11/24 MR#: [id number] Acct: [id number] Name: JERMAIN GERARD Rep #: [id number] 2 : 2000 Provider: FABBY Stephen [facility] Age/Sex: 24/F Location: [facility] Status: Signed Intake Vital Signs 08/28/24 14:41 10/02/24 14:55 10/11/24 07:57 Height 5 ft 5 in 5 ft 5 in 5 ft 5 in Weight: 219 lb 9 oz BMI 36.5 BP 112/79 Intake Visit Reasons: 38wk ob *trying for Chief Complaint: 38wk OB Vp Scientific Required: No Is patient in pain?: No Allergies No Known Allergies Allergy (Verified 10/11/24 07:55) Medications ???Medication ???Instructions ???Recorded ???Confirmed ???Type organ concentrates 80 mg capsule mg PO 08/02/23 10/11/24 History cholecalciferol (vitamin D3) 10 10 mcg PO QDAY 03/02/24 10/11/24 H istory mcg (400 unit) capsule docosahexaenoic acid 200 mg mg PO 03/02/24 10/11/24 History capsule ( DHA) ferrous sulfate 325 mg (65 mg 325 mg PO QDAY 09/11/24 10/11/24 H istory iron) tablet Last Menstrual Period: 01/17/24 : No Have you fallen in the past year?: No PFSH PFSH Medical History Early stage of Partial hydatidiform mole Wears glasses Surgical History S/P D C (status post dilation and curettage) H/O laparoscopy History of delivery Family History Mother Asthma Grandfather COPD (chronic obstructive pulmonary disease) Diabetes Social History adopted: No household members: spouse and children number of children: 1 current occupational status: 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 pets and animals: Yes pets and animals: dog(s) history of recent travel: Yes ([place] - Beginning of Feb 2024) out of state: Yes out of country: No sexually active: Yes Smoking Status: Never smoker second hand exposure: No alcohol intake: current alcohol intake frequency: holidays/special occasions only details: not during substance use type: does not use well-balanced diet: daily or most days caffeine: Yes eating out: rarely or never during the past year weight has: remained stable what type of physical activity do you participate in: walking frequency: 3-4 times per week duration: 15-30 minutes/day jerome/presybeterian: None seatbelt use: always do you feel safe at home: Yes additional social history: : Boubacar grullon History 3 Elective abortions Hx Para 1 Spontaneous abortions 1 Hx # Term Pregnancies Ectopic pregnancies Hx # Pregnancies Multiple births # of living children 1 Past Pregnancies Del. Date Name GA/Weeks Outcome Route Bth Weight Gen Labor Lgth Anesthesia Del Locatn Provider FOB 07/14/22 Bora 39 live - full term 8lbs 6oz Female epidural Aultm an Dr. Deja Hamlin 06/08/23 6 molar Delivery Date: 07/14/22 Last Updated by: Marcela Patrick RN Csec d/t stuck in canal mec aspirate - NICU x6days Delivery Date: 06/08/23 Last Updated by: Marcela Patrick RN D C @ about 8weeks HPI 38wk ob *trying for Details: JERMAIN GERARD is a 24 year old who presents for routine OB visit. OB Visit NATAN Calculator Estimated Delivery Date Method Current WG Current Estimate 10/23/24 LMP (Certain) 38w 2d Other Estimates 10/25/24 Ultrasound #1 38w 0d Expected Delivery Route/Plan wants to try patient counseled regarding risks/benefits of trial of labor versus repeat . ACOG/uptodate education given to patient. 65 % likelihood of success per calculator TOLAC consent form signed: [] Specific Issue/Plans Covid status: [] Flu vaccine: [] Tdap vaccine: declined Rhogam: NA LARC form signed: yes Problem list reviewed and updated with the most current plan of care details and appropriate orders placed. Relevant counseling for the gestational age provided. Continue routine care and follow up unless otherwise noted in visit notes/problem list details Initial Weight: 192 lb Date -???-???-???-???-???- ???-???-???-???-???-? ??-???- EGA Weight BP Urine Prot -???-???-???-???-???- ???-???-???-???-???-? ??-???- Glucose FHR FuHt Pres Dilation -???-???-???-???-???- ???-???-???-???-???-? ??-???- Effaced St Visit Note 03/16/24 -???-???-???-???-???- ???-???-???-???-???-? ??-???- 8w 3d 192 lb 6 oz (+6 oz) 119/79 -???-???-???-???-???- ???-???-???-???-???-? ??-???- 165 -???-???-???-???-???- ???-???-???-???-???-? ??-???- JV (more content not included)... Normal [facility] Laboratory - Chemistry and C hemistry - challengeOrdered By: Laya Pugh on 10-02-2024 Glucose Ql (U) Negative [facility] Laboratory - UrinalysisOrder ed By: Laya Pugh on 10-02-2024 Protein Ql (U) Negative [facility] Office Visit Reporton 10-02-2024 [facility] Office Visit Report [facility] [address], [address] [place] [address] OFFICE VISIT Date of Service: 10/02/24 MR#: [id number] Acct: [id number] Name: JERMAIN GERARD Rep #: [id number] : 2000 Provider: Dr. Laya black MD Age/Sex: 24/F Location: [facility] [place] Status: Signed Intake Vital Signs 08/28/24 14:41 09/24/24 14:08 10/02/24 14:55 Height 5 ft 5 in 5 ft 5 in 5 ft 5 in Weight: 222 lb 4 oz BMI 37.0 BP 122/84 H Intake Visit Reasons: 37wk ob Vp Scientific Required: No Is patient in pain?: No Allergies No Known Allergies Allergy (Verified 10/02/24 15:04) Medications ???Medication ???Instructions ???Recorded ???Confirmed ???Type organ concentrates 80 mg capsule mg PO 08/02/23 10/02/24 History cholecalciferol (vitamin D3) 10 10 mcg PO QDAY 03/02/24 10/02/24 H istory mcg (400 unit) capsule docosahexaenoic acid 200 mg mg PO 03/02/24 10/02/24 History capsule ( DHA) ferrous sulfate 325 mg (65 mg 325 mg PO QDAY 09/11/24 10/02/24 H istory iron) tablet Last Menstrual Period: 01/17/24 Zika: Zika virus screening: Negative : No PFSH PFSH Medical History Early stage of Partial hydatidiform mole Wears glasses Surgical History S/P D C (status post dilation and curettage) H/O laparoscopy History of delivery Family History Mother Asthma Grandfather COPD (chronic obstructive pulmonary disease) Diabetes Social History adopted: No household members: spouse and children number of children: 1 current occupational status: employed current occupation: [employer] current occupational exposures/hazards: No pets and animals: Yes pets and animals: dog(s) history of recent travel: Yes ([place] - Beginning of Feb 2024) out of state: Yes out of country: No sexually active: Yes Smoking Status: Never smoker second hand exposure: No alcohol intake: current alcohol intake frequency: holidays/special occasions only details: not during substance use type: does not use well-balanced diet: daily or most days caffeine: Yes eating out: rarely or never during the past year weight has: remained stable what type of physical activity do you participate in: walking frequency: 3-4 times per week duration: 15-30 minutes/day jerome/presybeterian: None seatbelt use: always do you feel safe at home: Yes additional social history: : Boubacar grullon History 3 Elective abortions Hx Para 1 Spontaneous abortions 1 Hx # Term Pregnancies Ectopic pregnancies Hx # Pregnancies Multiple births # of living children 1 Past Pregnancies Del. Date Name GA/Weeks Outcome Route Bth Weight Gen Labor Lgth Anesthesia Del Locatn Provider FOB 07/14/22 Bora 39 live - full term 8lbs 6oz Female epidural Aultm an Dr. Deja Hamlin 06/08/23 6 molar Delivery Date: 07/14/22 Last Updated by: Marcela Patrick RN Csec d/t stuck in canal mec aspirate - NICU x6days Delivery Date: 06/08/23 Last Updated by: Marcela Patrick RN D C @ about 8weeks HPI 37wk ob Details: JERMAIN GERARD is a 24 year old who presents for routine OB visit. OB Visit NATAN Calculator Estimated Delivery Date Method Current WG Current Estimate 10/23/24 LMP (Certain) 37w 0d Other Estimates 10/25/24 Ultrasound #1 36w 5d Expected Delivery Route/Plan wants to try patient counseled regarding risks/benefits of trial of labor versus repeat . ACOG/uptodate education given to patient. 65 % likelihood of success per calculator TOLAC consent form signed: [] Specific Issue/Plans Covid status: [] Flu vaccine: [] Tdap vaccine: declined Rhogam: NA LARC form signed: yes Problem list reviewed and updated with the most current plan of care details and appropriate orders placed. Relevant counseling for the gestational age provided. Continue routine care and follow up unless otherwise noted in visit notes/problem list details Initial Weight: 192 lb Date -???-???-???-???-???- ???-???-???-???-???-? ??-???- EGA Weight BP Urine Prot -???-???-???-???-???- ???-???-???-???-???-? ??-???- Glucose FHR FuHt Pres Dilation -???-???-???-???-???- ???-???-???-???-???-? ??-???- Effaced St Visit Note 03/16/24 -???-???-???-???-???- ???-???-???-???-???-? ??-???- 8w 3d 192 lb 6 oz (+6 oz) 119/79 -???-???-???-???-???- ???-???-???-???-???-? ??-???- 165 -???-???-???-???-???- ???-???-???-???-???-? ??-???- JV- CRL cons istent with first ultrasound. desires N (more content not included)... Normal [facility] Rule out Beta Strep (Grp. B) on 09-29-2024 SANDRITA Group B Beta Streptococcus is not isolated. Normal [facility] Comment on above: Performed By: #### M [id number] ####[facility] [id number] [place], [address] Laboratory - Chemistry and C hemistry - challengeOrdered By: Jorge Valente on 09-24-2024 Glucose Ql (U) Negative [facility] Laboratory - UrinalysisOrder ed By: Jorge Valente on 09-24-2024 Protein Ql (U) Negative [facility] Office Visit Reporton 09-24-2024 [facility] Office Visit Report [facility] [address], [address] [place] [address] OFFICE VISIT Date of Service: 09/24/24 MR#: [id number] Acct: [id number] Name: JERMAIN GERARD Rep #: [id number] : 2000 Provider: FABBY Stephen ams Age/Sex: 24/F Location: [facility] [place] Status: Signed Intake Vital Signs 07/30/24 15:24 09/11/24 09:34 09/24/24 14:08 Height 5 ft 5 in 5 ft 5 in 5 ft 5 in Weight: 217 lb 5 oz BMI 36.1 BP 119/81 H Intake Visit Reasons: 36 wk ob Chief Complaint: 36wk OB Vp Scientific Required: No Is patient in pain?: No Allergies No Known Allergies Allergy (Verified 09/24/24 14:07) Medications ???Medication ???Instructions ???Recorded ???Confirmed ???Type organ concentrates 80 mg capsule mg PO 08/02/23 09/24/24 History cholecalciferol (vitamin D3) 10 10 mcg PO QDAY 03/02/24 09/24/24 H istory mcg (400 unit) capsule docosahexaenoic acid 200 mg mg PO 03/02/24 09/24/24 History capsule ( DHA) ferrous sulfate 325 mg (65 mg 325 mg PO QDAY 09/11/24 09/24/24 H istory iron) tablet Last Menstrual Period: 01/17/24 : No Have you fallen in the past year?: No PFSH PFSH Medical History Early stage of Partial hydatidiform mole Wears glasses Surgical History S/P D C (status post dilation and curettage) H/O laparoscopy History of delivery Family History Mother Asthma Grandfather COPD (chronic obstructive pulmonary disease) Diabetes Social History adopted: No household members: spouse and children number of children: 1 current occupational status: employed 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/hazards: No pets and animals: Yes pets and animals: dog(s) history of recent travel: Yes ([place] - Beginning of Feb 2024) out of state: Yes out of country: No sexually active: Yes Smoking Status: Never smoker second hand exposure: No alcohol intake: current alcohol intake frequency: holidays/special occasions only details: not during substance use type: does not use well-balanced diet: daily or most days caffeine: Yes eating out: rarely or never during the past year weight has: remained stable what type of physical activity do you participate in: walking frequency: 3-4 times per week duration: 15-30 minutes/day jerome/presybeterian: None seatbelt use: always do you feel safe at home: Yes additional social history: : Boubacar grullon History 3 Elective abortions Hx Para 1 Spontaneous abortions 1 Hx # Term Pregnancies Ectopic pregnancies Hx # Pregnancies Multiple births # of living children 1 Past Pregnancies Del. Date Name GA/Weeks Outcome Route Bth Weight Infant Gen Labor Lgth Anesthesia Del Locatn Provider FOB 07/14/22 Bora 39 live - full term 8lbs 6oz Female epidural Aultm an Dr. Deja Hamlin 06/08/23 6 molar Delivery Date: 07/14/22 Last Updated by: Marcela Patrick RN Csec d/t stuck in canal mec aspirate - NICU x6days Delivery Date: 06/08/23 Last Updated by: Marcela Patrick RN D C @ about 8weeks HPI 36 wk ob Details: JERMAIN GERARD is a 24 year old who presents for routine OB visit. OB Visit NATAN Calculator Estimated Delivery Date Method Current WG Current Estimate 10/23/24 LMP (Certain) 35w 6d Other Estimates 10/25/24 Ultrasound #1 35w 4d Expected Delivery Route/Plan wants to try patient counseled regarding risks/benefits of trial of labor versus repeat . ACOG/uptodate education given to patient. 65 % likelihood of success per calculator TOLAC consent form signed: [] Specific Issue/Plans Covid status: [] Flu vaccine: [] Tdap vaccine: [] Rhogam: NA LARC form signed: yes Problem list reviewed and updated with the most current plan of care details and appropriate orders placed. Relevant counseling for the gestational age provided. Continue routine care and follow up unless otherwise noted in visit notes/problem list details Initial Weight: 192 lb Date -???-???-???-???-???- ???-???-???-???-???-? ??-???- EGA Weight BP Urine Prot -???-???-???-???-???- ???-???-???-???-???-? ??-???- Glucose FHR FuHt Pres Dilation -???-???-???-???-???- ???-???-???-???-???-? ??-???- Effaced St Visit Note 03/16/24 -???-???-???-???-???- ???-???-???-???-???-? ??-???- 8w 3d 192 lb 6 oz (+6 oz) 119/79 -???-???-???-???-???- ???-???-???-???-???-? ??-???- 165 -???-???-???-???-???- ???-???-???-???-???-? ??-???- JV- CRL cons istent with first ultra (more content not included)... Normal [facility] Screening beta-hemolytic Str eptococcus cultureOrdered By: Jorge Valente on 09-24-2024 Beta-hemolytic Streptococcus culture Group B Beta Streptococcus is not isolated. [facility] Laboratory - Chemistry and C hemistry - challengeOrdered By: Holly Ramirez on 09-11-2024 Glucose Ql (U) Negative [facility] Laboratory - UrinalysisOrder ed By: Holly Ramirez on 09-11-2024 Protein Ql (U) Negative [facility] Office Visit Reporton 09-11-2024 [facility] Office Visit Report [facility] [address], [address] [place] [address] OFFICE VISIT Date of Service: 09/11/24 MR#: [id number] Acct: [id number] Name: JERMAIN GERARD Rep #: [id number] : 2000 Provider: Dr. Holly Gallegos DO Age/Sex: 24/F Location: [facility] [place] Status: Signed Intake Vital Signs 07/04/24 10:51 07/30/24 15:24 08/28/24 14:41 09/11/24 09:34 09/11/24 09:34 Height 5 ft 5 in 5 ft 5 in 5 ft 5 in 5 ft 5 in 5 ft 5 in Weight: 218 lb 1 oz BMI 36.3 BP 118/76 Intake Visit Reasons: 34wk ob Vp Scientific Required: No Is patient in pain?: No Allergies No Known Allergies Allergy (Verified 09/11/24 09:34) Medications ???Medication ???Instructions ???Recorded ???Confirmed ???Type organ concentrates 80 mg capsule mg PO 08/02/23 09/11/24 History cholecalciferol (vitamin D3) 10 10 mcg PO QDAY 03/02/24 09/11/24 H istory mcg (400 unit) capsule docosahexaenoic acid 200 mg mg PO 03/02/24 09/11/24 History capsule ( DHA) ferrous sulfate 325 mg (65 mg 325 mg PO QDAY 09/11/24 09/11/24 H istory iron) tablet Last Menstrual Period: 01/17/24 Zika: Zika virus screening: Negative : No PFSH PFSH Medical History Early stage of Partial hydatidiform mole Wears glasses Surgical History S/P D C (status post dilation and curettage) H/O laparoscopy History of delivery Family History Mother Asthma Grandfather COPD (chronic obstructive pulmonary disease) Diabetes Social History adopted: No household members: spouse and children number of children: 1 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 occupational status: 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 pets and animals: Yes pets and animals: dog(s) history of recent travel: Yes ([place] - Beginning of Feb 2024) out of state: Yes out of country: No sexually active: Yes Smoking Status: Never smoker second hand exposure: No alcohol intake: current alcohol intake frequency: holidays/special occasions only details: not during substance use type: does not use well-balanced diet: daily or most days caffeine: Yes eating out: rarely or never during the past year weight has: remained stable what type of physical activity do you participate in: walking frequency: 3-4 times per week duration: 15-30 minutes/day jerome/presybeterian: None seatbelt use: always do you feel safe at home: Yes additional social history: : Boubacar grullon History 3 Elective abortions Hx Para 1 Spontaneous abortions 1 Hx # Term Pregnancies Ectopic pregnancies Hx # Pregnancies Multiple births # of living children 1 Past Pregnancies Del. Date Name GA/Weeks Outcome Route Bth Weight Gen Labor Lgth Anesthesia Del Locatn Provider FOB 07/14/22 Bora 39 live - full term 8lbs 6oz Female epidural Aultm an Dr. Deja Hamlin 06/08/23 6 molar Delivery Date: 07/14/22 Last Updated by: Marcela Patrick RN Csec d/t stuck in canal mec aspirate - NICU x6days Delivery Date: 06/08/23 Last Updated by: Marcela Patrick RN D C @ about 8weeks HPI 34wk ob Details: JERMAIN GERARD is a 24 year old who presents for routine OB visit. OB Visit NATAN Calculator Estimated Delivery Date Method Current WG Current Estimate 10/23/24 LMP (Certain) 34w 0d Other Estimates 10/25/24 Ultrasound #1 33w 5d Expected Delivery Route/Plan wants to try patient counseled regarding risks/benefits of trial of labor versus repeat . ACOG/uptodate education given to patient. 65 % likelihood of success per calculator TOLAC consent form signed: [] Specific Issue/Plans Covid status: [] Flu vaccine: [] Tdap vaccine: [] Rhogam: NA LARC form signed: yes Problem list reviewed and updated with the most current plan of care details and appropriate orders placed. Relevant counseling for the gestational age provided. Continue routine care and follow up unless otherwise noted in visit notes/problem list details Initial Weight: 192 lb Date -???-???-???-???-???- ???-???-???-???-???-? ??-???- EGA Weight BP Urine Prot -???-???-???-???-???- ???-???-???-???-???-? ??-???- Glucose FHR FuHt Pres Dilation -???-???-???-???-???- ???-???-???-???-???-? ??-???- Effaced St Visit Note 03/16/24 -???-???-???-???-???- ???-???-???-???-???-? ??-???- 8w 3d 192 lb 6 oz (+6 oz) 119/79 -???-???-???-???-???- ???-???-???-???-???-? ??-???- 165 -???-???-???-???-???- ???-???-???-???-? (more content not included)... Normal [facility] Laboratory - Chemistry and C hemistry - challengeOrdered By: Laya Pugh on 08-28-2024 Glucose Ql (U) Negative [facility] Laboratory - UrinalysisOrder ed By: Laya Pugh on 08-28-2024 Protein Ql (U) Negative [facility] Laboratory - Chemistry and C hemistry - challengeOrdered By: Jorge Valente on 08-15-2024 Glucose Ql (U) Negative [facility] Laboratory - UrinalysisOrder ed By: Jorge Valente on 08-15-2024 Protein Ql (U) Trace [facility] Office Visit Reporton 08-15-2024 [facility] Office Visit Report [facility] [address], [address] [place] [address] OFFICE VISIT Date of Service: 08/15/24 MR#: [id number] Acct: [id number] Name: JERMAIN GERARD Rep #: [id number] : 2000 Provider: FABBY Stephen ams Age/Sex: 24/F Location: [facility] [place].[facility] Status: Signed Intake Vital Signs 07/04/24 10:51 07/30/24 15:24 08/15/24 11:21 Height 5 ft 5 in 5 ft 5 in 5 ft 5 in Weight: 214 lb 6 oz BMI 35.6 BP 109/77 Intake Visit Reasons: 30wk ob Vp Scientific Required: No Is patient in pain?: No Allergies No Known Allergies Allergy (Verified 08/15/24 11:20) Medications ???Medication ???Instructions ???Recorded ???Confirmed ???Type organ concentrates 80 mg capsule mg PO 08/02/23 08/15/24 History cholecalciferol (vitamin D3) 10 10 mcg PO QDAY 03/02/24 08/15/24 H istory mcg (400 unit) capsule docosahexaenoic acid 200 mg mg PO 03/02/24 08/15/24 History capsule ( DHA) Last Menstrual Period: 01/17/24 : Yes PFSH PFSH Medical History Early stage of Partial hydatidiform mole Wears glasses Surgical History S/P D C (status post dilation and curettage) H/O laparoscopy History of delivery Family History Mother Asthma Grandfather COPD (chronic obstructive pulmonary disease) Diabetes Social History adopted: No household members: spouse and children number of children: 1 current occupational status: 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 pets and animals: Yes pets and animals: dog(s) history of recent travel: Yes ([place] - Beginning of Feb 2024) out of state: Yes out of country: No sexually active: Yes Smoking Status: Never smoker second hand exposure: No alcohol intake: current alcohol intake frequency: holidays/special occasions only details: not during substance use type: does not use well-balanced diet: daily or most days caffeine: Yes eating out: rarely or never during the past year weight has: remained stable what type of physical activity do you participate in: walking frequency: 3-4 times per week duration: 15-30 minutes/day jerome/presybeterian: None seatbelt use: always do you feel safe at home: Yes additional social history: : Boubacar grullon History 3 Elective abortions Hx Para 1 Spontaneous abortions 1 Hx # Term Pregnancies Ectopic pregnancies Hx # Pregnancies Multiple births # of living children 1 Past Pregnancies Del. Date Name GA/Weeks Outcome Route Bth Weight Infant Gen Labor Lgth Anesthesia Del Locatn Provider FOB 07/14/22 Bora 39 live - full term 8lbs 6oz Female epidural Aultm an Dr. Deja Hamlin 06/08/23 6 molar Delivery Date: 07/14/22 Last Updated by: Marcela Patrick RN Csec d/t stuck in canal mec aspirate - NICU x6days Delivery Date: 06/08/23 Last Updated by: Marcela Patrick RN D C @ about 8weeks HPI 30wk ob Details: JERMAIN GERARD is a 24 year old who presents for routine OB visit. OB Visit NATAN Calculator Estimated Delivery Date Method Current WG Current Estimate 10/23/24 LMP (Certain) 30w 1d Other Estimates 10/25/24 Ultrasound #1 29w 6d Expected Delivery Route/Plan wants to try Specific Issue/Plans Covid status: [] Flu vaccine: [] Tdap vaccine: [] Rhogam: NA LARC form signed: yes Problem list reviewed and updated with the most current plan of care details and appropriate orders placed. Relevant counseling for the gestational age provided. Continue routine care and follow up unless otherwise noted in visit notes/problem list details Initial Weight: Not Recorded Date -???-???-???-???-???- ???-???-???-???-???-? ??-???- EGA Weight BP Urine Prot -???-???-???-???-???- ???-???-???-???-???-? ??-???- Glucose FHR FuHt Pres Dilation -???-???-???-???-???- ???-???-???-???-???-? ??-???- Effaced St Visit Note 03/16/24 -???-???-???-???-???- ???-???-???-???-???-? ??-???- 8w 3d 192 lb 6 oz 119/79 -???-???-???-???-???- ???-???-???-???-???-? ??-???- 165 -???-???-???-???-???- ???-???-???-???-???-? ??-???- JV- CRL cons istent with first ultrasound. desires NIPT. will return in 2 weeks to do all labs. 04/13/24 -???-???-???-???-???- ???-???-???-???-???-? ??-???- 12w 3d 193 lb 6 oz 118/84 Negative -???-???-???-???-???- ???-???-???-???-???-? ??-???- Negative 168 -???-???-???-???-???- ???-???-???-???-???-? 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 US ordered. 05/09/24 -???-???-???-???-???- ???-???-???-???-???-? ??- (more content not included)... Normal [facility] Absolute lymphocyte countOrd ered By: Holly Ramirez on 07-30-2024 Lymphocytes Auto (Unsp spec) [#/Vol] 1.89 10*3/uL 0.83-4.51 [facility] Absolute neutrophil countOrd ered By: Holly Ramirez on 07-30-2024 Neutrophils (Bld) [#/Vol] 8.2 10*3/uL High 2.0-7.7 [facility] Automated lymphocyte count a s percentage of total leukocytesOrdered By: Holly Ramirez on 07-30-2024 Lymphocytes/100 WBC Auto (Unsp spec) 17.0 % Low 19-41 [facility] Basophil percentageOrdered B y: Holly Ramirez on 07-30-2024 Basophils/100 WBC (Bld) 0.5 % 0-1 [facility] CBC W/Diff, Automatedon 07-09 Absolute Lymph 1.89 X10 3/uL Normal 0.83-4.51 [facility] Comment on above: Performed By: #### L 3890.6006, L501.0250, L100.0100, L509.8002 #### [facility] [address] [place], [address] Absolute Neut 8.2 X10 3/uL High 2.0-7.7 [facility] Comment on above: Performed By: #### L 3890.6006, L501.0250, L100.0100, L509.8002 #### [facility] [address] [place], [address] Basophils/100 WBC (Bld) 0.5 % Normal 0-1 [facility] Comment on above: Performed By: #### L 3890.6006, L501.0250, L100.0100, L509.8002 #### [facility] [address] [place], [address] Eosinophils/100 WBC (Bld) 1.5 % Normal 0-5 [facility] Comment on above: Performed By: #### L 3890.6006, L501.0250, L100.0100, L509.8002 #### [facility] [address] [place], [address] Erythrocyte distribution width (RBC) [Ratio] 13.9 % Normal 11.6-14.6 [facility] Comment on above: Performed By: #### L 3890.6006, L501.0250, L100.0100, L509.8002 #### [facility] [address] [place], [address] Hematocrit (Bld) [Volume fraction] 32.6 % Low 37-47 [facility] Comment on above: Performed By: #### L 3890.6006, L501.0250, L100.0100, L509.8002 #### [facility] [address] [place], [address] Hemoglobin (Bld) [Mass/Vol] 10.6 g/dL Low 12.0-15.0 [facility] Comment on above: Performed By: #### L 3890.6006, L501.0250, L100.0100, L509.8002 #### [facility] [address] [place], [address] IG% 0.700 Normal 0.0-0.9 [facility] Comment on above: Result Comment: IG% - Immature Granulocytes (promyelocytes, myelocytes and metamyelocytes) > 1% indicates that a LEFT SHIFT is Present. Performed By: #### L 3890.6006, L501.0250, L100.0100, L509.8002 #### [facility] [address] [place], [address] Lymphocytes/100 WBC (Bld) 17.0 % Low 19-41 [facility] Comment on above: Performed By: #### L 3890.6006, L501.0250, L100.0100, L509.8002 #### [facility] [address] [place], [address] MCH (RBC) [Entitic mass] 30.1 pg Normal 27.0-32.0 [facility] Comment on above: Performed By: #### L 3890.6006, L501.0250, L100.0100, L509.8002 #### [facility] [address] [place], [address] MCHC (RBC) [Mass/Vol] 32.5 g/dL Normal 32-36 [facility] Comment on above: Performed By: #### L 3890.6006, L501.0250, L100.0100, L509.8002 #### [facility] [address] [place], [address] MCV (RBC) [Entitic vol] 92.6 fL Normal 81-99 [facility] Comment on above: Performed By: #### L 3890.6006, L501.0250, L100.0100, L509.8002 #### [facility] [address] [place], [address] Monocytes/100 WBC (Bld) 6.0 % Normal 0-10 [facility] Comment on above: Performed By: #### L 3890.6006, L501.0250, L100.0100, L509.8002 #### [facility] [address] [place], [address] Neutrophils/100 WBC (Bld) 74.3 % High 47-70 [facility] Comment on above: Performed By: #### L 3890.6006, L501.0250, L100.0100, L509.8002 #### [facility] [address] [place], [address] Nucleated RBC (Bld) [#/Vol] 0 10*3/uL Normal 0-5 [facility] Comment on above: Performed By: #### L 3890.6006, L501.0250, L100.0100, L509.8002 #### [facility] [address] [place], [address] Platelet mean volume (Bld) [Entitic vol] 10.3 fL Normal 6.2-12.0 [facility] Comment on above: Performed By: #### L 3890.6006, L501.0250, L100.0100, L509.8002 #### [facility] [address] [place], [address] Platelets (Bld) [#/Vol] 283 10*3/uL Normal 150-450 [facility] Comment on above: Performed By: #### L 3890.6006, L501.0250, L100.0100, L509.8002 #### [facility] [address] [place], [address] RBC (Bld) [#/Vol] 3.52 10*6/uL Low 4.2-5.4 [facility] Comment on above: Performed By: #### L 3890.6006, L501.0250, L100.0100, L509.8002 #### [facility] [address] [place], [address] RDW SD 46.8 fl High 35.1-43.9 [facility] Comment on above: Performed By: #### L 3890.6006, L501.0250, L100.0100, L509.8002 #### [facility] [address] [place], [address] WBC (Bld) [#/Vol] 11.1 10*3/uL High 4.4-11.0 [facility] Comment on above: Performed By: #### L 3890.6006, L501.0250, L100.0100, L509.8002 #### [facility] [address] [place], [address] Eosinophil percentageOrdered By: Holly Ramirez on 07-30-2024 Eosinophils/100 WBC (Bld) 1.5 % 0-5 [facility] Erythrocyte distribution wid th ratioOrdered By: Holly Ramirez on 07-30-2024 Erythrocyte distribution width (RBC) [Ratio] 13.9 % 11.6-14.6 [facility] Erythrocyte distribution wid th standard deviationOrdered By: Holly Ramirez on 07-30-2024 Erythrocyte distribution width (RBC) [Ratio] 46.8 fl High 35.1-43.9 [facility] Glucose Challenge Gest 1H 50 elizabeth 07-30-2024 GLU GEST 50g 1H 114 mg/dL Normal 70-140 [facility] Comment on above: Performed By: #### L 3890.6006, L501.0250, L100.0100, L509.8002 #### [facility] [address] [place], [place], [id number] Glucose measurement at 2 ayaan rs post-dose gestational glucose tolerance testOrdered By: Holly Ramirez on 07-30-2024 Glucose [Mass/Vol] 114 mg/dL 70-140 [facility] HIVon 07-30-2024 HIV Non-Reactive Normal Nonreactive [facility] Comment on above: Result Comment: Non- Reactive Reactive Repeatedly reactive samples must be confirmed according to CDC recommended confirmatory algorithms. The subresults for either HIVAG or AHIV can be used as an aid in the selection of the confirmation algorithm for reactive samples. Send out specimens with Reactive results to [facility] for confirmation. Order the HIV antibody detection and differentiation: lc#[id number] Performed By: #### L 3890.6006, L501.0250, L100.0100, L509.8002 ####[facility] [address] [place], [place], [address] Hematocrit Auto (Bld) [Volum e fraction]Ordered By: Holly Ramirez on 07-30-2024 Hematocrit (Bld) [Volume fraction] 32.6 % Low 37-47 [facility] Hemoglobin measurementOrdere d By: Holly Ramirez on 07-30-2024 Hemoglobin (Bld) [Mass/Vol] 10.6 g/dL Low 12.0-15.0 [facility] Immature granulocytes/100 WB C Auto (Bld)Ordered By: Holly Ramirez on 07-30-2024 Immature granulocytes/100 WBC (Bld) 0.700 % 0.0-0.9 [facility] Comment on above: IG% - Immature Granu locytes (promyelocytes, myelocytes and metamyelocytes) > 1% indicates that a LEFT SHIFT is Present. Laboratory - Chemistry and C hemistry - challengeOrdered By: Linh Obregon on 07-30-2024 Glucose Ql (U) Negative [facility] - UrinalysisOrder ed By: Linh Obregon on 07-30-2024 Protein Ql (U) Negative [facility] MCV (mean corpuscular volume ) determinationOrdered By: Holly Ramirez on 07-30-2024 MCV (RBC) [Entitic vol] 92.6 fL 81-99 [facility] Mean corpuscular hemoglobin (MCH) determinationOrdered By: Holly Ramirez on 07-30-2024 MCH (RBC) [Entitic mass] 30.1 pg 27.0-32.0 [facility] Mean corpuscular hemoglobin concentration (MCHC) determinationOrdered By: Holly Ramirez on 07-30-2024 MCHC (RBC) [Mass/Vol] 32.5 g/dL 32-36 [facility] Mean platelet volume determi nationOrdered By: Holly Ramirez on 07-30-2024 Platelet mean volume (Bld) [Entitic vol] 10.3 fL 6.2-12.0 [facility] Monocyte percentageOrdered B y: Holly Ramirez on 07-30-2024 Monocytes/100 WBC (Bld) 6.0 % 0-10 [facility] Neutrophil percentageOrdered By: Holly Ramirez on 07-30-2024 Neutrophils/100 WBC (Bld) 74.3 % High 47-70 [facility] No Panel InformationOrdered By: Holly Ramirez on 07-30-2024 HIV (1&2) Antibody Non-Reactive Nonreactive [facility] Comment on above: Non-ReactiveReactive Repeatedly reactive samples must be confirmed according to CDC recommended confirmatory algorithms. The subresults for either HIVAG or AHIV can be used as an aid in the selection of the confirmation algorithm for reactive samples.Send out specimens with Reactive results to [facility] for confirmation.Order the HIV antibody detection and differentiation: #[id number] Nucleated red blood cell per centageOrdered By: Holly Ramirez on 07-30-2024 Nucleated RBC/100 WBC (Bld) [Ratio] 0 % 0-5 [facility] Visit Reporton 07-30-2024 [facility] Office Visit Report [facility] [address], [address] [place] [address] OFFICE VISIT Date of Service: 07/30/24 MR#: [id number] Acct: [id number] Name: JERMAIN GERARD Rep #: [id number] : 2000 Provider: JC barrera Age/Sex: 24/F Location: [facility] Status: Signed Intake Vital Signs 05/09/24 08:39 07/04/24 10:51 07/30/24 15:24 Height 5 ft 5 in 5 ft 5 in 5 ft 5 in Weight: 216 lb BMI 35.9 BP 118/80 Intake Visit Reasons: 28wk ob/glucose Chief Complaint: 28 Week OB/Glucose Vp Scientific Required: No Is patient in pain?: No Allergies No Known Allergies Allergy (Verified 07/30/24 15:26) Medications ???Medication ???Instructions ???Recorded ???Confirmed ???Type organ concentrates 80 mg capsule mg PO 08/02/23 07/30/24 History cholecalciferol (vitamin D3) 10 10 mcg PO QDAY 03/02/24 07/30/24 H istory mcg (400 unit) capsule docosahexaenoic acid 200 mg mg PO 03/02/24 07/30/24 History capsule ( DHA) Last Menstrual Period: 01/17/24 Zika: Zika virus screening: Negative : Yes PFSH PFSH Medical History Early stage of Partial hydatidiform mole Wears glasses Surgical History S/P D C (status post dilation and curettage) H/O laparoscopy History of delivery Family History Mother Asthma Grandfather COPD (chronic obstructive pulmonary disease) Diabetes Social History adopted: No household members: spouse and children number of children: 1 current occupational status: 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 pets and animals: Yes pets and animals: dog(s) history of recent travel: Yes ([place] - Beginning of Feb 2024) out of state: Yes out of country: No sexually active: Yes Smoking Status: Never smoker second hand exposure: No alcohol intake: current alcohol intake frequency: holidays/special occasions only details: not during substance use type: does not use well-balanced diet: daily or most days caffeine: Yes eating out: rarely or never during the past year weight has: remained stable what type of physical activity do you participate in: walking frequency: 3-4 times per week duration: 15-30 minutes/day jerome/presybeterian: None seatbelt use: always do you feel safe at home: Yes additional social history: : Boubacar grullon History 3 Elective abortions Hx Para 1 Spontaneous abortions 1 Hx # Term Pregnancies Ectopic pregnancies Hx # Pregnancies Multiple births # of living children 1 Past Pregnancies Del. Date Name GA/Weeks Outcome Route Bth Weight Infant Gen Labor Lgth Anesthesia Del Locatn Provider FOB 07/14/22 Maeli 39 live - full term 8lbs 6oz Female epidural Aultm an Dr. Deja Hamlin 06/08/23 6 molar Delivery Date: 07/14/22 Last Updated by: Marcela Patrick RN Csec d/t stuck in canal mec aspirate - NICU x6days Delivery Date: 06/08/23 Last Updated by: Marcela Patrick RN D C @ about 8weeks HPI 28wk ob/glucose Details: JERMAIN GERARD is a 24 year old who presents for routine OB visit. OB Visit NATAN Calculator Estimated Delivery Date Method Current WG Current Estimate 10/23/24 LMP (Certain) 27w 6d Other Estimates 10/25/24 Ultrasound #1 27w 4d Expected Delivery Route/Plan wants to try Specific Issue/Plans Covid status: [] Flu vaccine: [] Tdap vaccine: [] Rhogam: NA LARC form signed: yes Problem list reviewed and updated with the most current plan of care details and appropriate orders placed. Relevant counseling for the gestational age provided. Continue routine care and follow up unless otherwise noted in visit notes/problem list details Initial Weight: Not Recorded Date -???-???-???-???-???- ???-???-???-???-???-? ??-???- EGA Weight BP Urine Prot -???-???-???-???-???- ???-???-???-???-???-? ??-???- Glucose FHR FuHt Pres Dilation -???-???-???-???-???- ???-???-???-???-???-? ??-???- Effaced St Visit Note 03/16/24 -???-???-???-???-???- ???-???-???-???-???-? ??-???- 8w 3d 192 lb 6 oz 119/79 -???-???-???-???-???- ???-???-???-???-???-? ??-???- 165 -???-???-???-???-???- ???-???-???-???-???-? ??-???- JV- CRL cons istent with first ultrasound. desires NIPT. will return in 2 weeks to do all labs. 04/13/24 -???-???-???-???-???- ???-???-???-???-???-? ??-???- 12w 3d 193 lb 6 oz 118/84 Negative -???-???-???-???-???- ???-???-???-???-???-? ??-???- Negative 168 -???-???-???-???-???- ???-???-???- (more content not included)... Normal [facility] Platelet countOrdered By: Marcial Ramirez on 07-30-2024 Platelets (Bld) [#/Vol] 283 10*3/uL 150-450 [facility] RBC Auto (Bld) [#/Vol]Ordere d By: Holly Ramirez on 07-30-2024 RBC (Bld) [#/Vol] 3.52 10*6/uL Low 4.2-5.4 [facility] Syphilis Antibodieson 2024 Syphilis Abs Non-Reactive Normal Nonreactive [facility] Comment on above: Performed By: #### L 3890.6006, L501.0250, L100.0100, L509.8002 #### [facility] [address] [place], [address] White blood cell (WBC) count Ordered By: Holly Ramirez on 07-30-2024 WBC (Bld) [#/Vol] 11.1 10*3/uL High 4.4-11.0 [facility] - Chemistry and C hemistry - challengeOrdered By: Holly Ramirez on 07-04-2024 Glucose Ql (U) Negative [facility] - UrinalysisOrder ed By: Holly Ramirez on 07-04-2024 Protein Ql (U) Negative [facility] Visit Reporton 07-04-2024 [facility] Office Visit Report [facility] [address], [address] [place] [address] OFFICE VISIT Date of Service: 07/04/24 MR#: [id number] Acct: [id number] Name: JERMAIN GERARD Rep #: [id number] : 2000 Provider: Dr. Holly Gallegos DO Age/Sex: 24/F Location: [facility] Status: Signed Intake Vital Signs 04/13/24 10:21 06/08/24 11:48 07/04/24 10:50 07/04/24 10:51 Height 5 ft 5 in 5 ft 5 in 5 ft 5 in 5 ft 5 in Weight: 209 lb 8 oz BMI 34.8 BP 110/76 Intake Visit Reasons: 24 wk ob Vp Scientific Required: No Is patient in pain?: No Allergies No Known Allergies Allergy (Verified 07/04/24 10:50) Medications ???Medication ???Instructions ???Recorded ???Confirmed ???Type organ concentrates 80 mg capsule mg PO 08/02/23 07/04/24 History cholecalciferol (vitamin D3) 10 10 mcg PO QDAY 03/02/24 07/04/24 H istory mcg (400 unit) capsule docosahexaenoic acid 200 mg mg PO 03/02/24 07/04/24 History capsule ( DHA) Last Menstrual Period: 01/17/24 Zika: Zika virus screening: Negative : No PFSH PFSH Medical History Early stage of Partial hydatidiform mole Wears glasses Surgical History S/P D C (status post dilation and curettage) H/O laparoscopy History of delivery Family History Mother Asthma Grandfather COPD (chronic obstructive pulmonary disease) Diabetes Social History adopted: No household members: spouse and children number of children: 1 current occupational status: employed 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/hazards: No pets and animals: Yes pets and animals: dog(s) history of recent travel: Yes ([place] - Beginning of Feb 2024) out of state: Yes out of country: No sexually active: Yes Smoking Status: Never smoker second hand exposure: No alcohol intake: current alcohol intake frequency: holidays/special occasions only details: not during substance use type: does not use well-balanced diet: daily or most days caffeine: Yes eating out: rarely or never during the past year weight has: remained stable what type of physical activity do you participate in: walking frequency: 3-4 times per week duration: 15-30 minutes/day jerome/presybeterian: None seatbelt use: always do you feel safe at home: Yes additional social history: : Boubacar grullon History 3 Elective abortions Hx Para 1 Spontaneous abortions 1 Hx # Term Pregnancies Ectopic pregnancies Hx # Pregnancies Multiple births # of living children 1 Past Pregnancies Del. Date Name GA/Weeks Outcome Route Bth Weight Infant Gen Labor Lgth Anesthesia Del Locatn Provider FOB 07/14/22 Bora 39 live - full term 8lbs 6oz Female epidural Aultm an Dr. Deja Hamlin 06/08/23 6 molar Delivery Date: 07/14/22 Last Updated by: Marcela Patrick RN Csec d/t stuck in canal mec aspirate - NICU x6days Delivery Date: 06/08/23 Last Updated by: Marcela Patrick RN D C @ about 8weeks HPI 24 wk ob Details: JERMAIN GERARD is a 24 year old who presents for routine OB visit. OB Visit NATAN Calculator Estimated Delivery Date Method Current WG Current Estimate 10/23/24 LMP (Certain) 24w 1d Other Estimates 10/25/24 Ultrasound #1 23w 6d Expected Delivery Route/Plan wants to try Specific Issue/Plans Covid status: [] Flu vaccine: [] Tdap vaccine: [] Rhogam: [] LARC form signed: [] Problem list reviewed and updated with the most current plan of care details and appropriate orders placed. Relevant counseling for the gestational age provided. Continue routine care and follow up unless otherwise noted in visit notes/problem list details Initial Weight: Not Recorded Date -???-???-???-???-???- ???-???-???-???-???-? ??-???- EGA Weight BP Urine Prot -???-???-???-???-???- ???-???-???-???-???-? ??-???- Glucose FHR FuHt Pres Dilation -???-???-???-???-???- ???-???-???-???-???-? ??-???- Effaced St Visit Note 03/16/24 -???-???-???-???-???- ???-???-???-???-???-? ??-???- 8w 3d 192 lb 6 oz 119/79 -???-???-???-???-???- ???-???-???-???-???-? ??-???- 165 -???-???-???-???-???- ???-???-???-???-???-? ??-???- JV- CRL cons istent with first ultrasound. desires NIPT. will return in 2 weeks to do all labs. 04/13/24 -???-???-???-???-???- ???-???-???-???-???-? ??-???- 12w 3d 193 lb 6 oz 118/84 Negative -???-???-???-???-???- ???-???-???-???-???-? ??-???- Negative 168 -???-???-???-???-???- ???-???-???-???-???-? ??-???- (more content not included)... Normal [facility] - Chemistry and C hemistry - challengeOrdered By: Laya Pugh on 06-08-2024 Glucose Ql (U) Negative [facility] - UrinalysisOrder ed By: Laya Pugh on 06-08-2024 Protein Ql (U) Negative [facility] Office Visit Reporton 06-08-2024 [facility] Office Visit Report [address], [address] [place] [address] OFFICE VISIT Date of Service: 06/08/24 MR#: [id number] Acct: [id number] Name: JERMAIN GERARD Rep #: [id number] : 2000 Provider: Dr. Laya black MD Age/Sex: 24/F Location: [facility] Status: Signed Intake Vital Signs 04/13/24 10:21 05/09/24 08:39 06/08/24 11:48 Height 5 ft 5 in 5 ft 5 in 5 ft 5 in Weight: 204 lb 2 oz BMI 34.0 BP 107/74 Intake Visit Reasons: 20 wk ob Vp Scientific Required: No Is patient in pain?: No Allergies No Known Allergies Allergy (Verified 06/08/24 11:49) Medications ???Medication ???Instructions ???Recorded ???Confirmed ???Type organ concentrates 80 mg capsule mg PO 08/02/23 06/08/24 History cholecalciferol (vitamin D3) 10 10 mcg PO QDAY 03/02/24 06/08/24 H istory mcg (400 unit) capsule docosahexaenoic acid 200 mg mg PO 03/02/24 06/08/24 History capsule ( DHA) Last Menstrual Period: 01/17/24 Zika: Zika virus screening: Negative : No PFSH PFSH Medical History Early stage of Partial hydatidiform mole Wears glasses Surgical History S/P D C (status post dilation and curettage) H/O laparoscopy History of delivery Family History Mother Asthma Grandfather COPD (chronic obstructive pulmonary disease) Diabetes Social History adopted: No household members: spouse and children number of children: 1 current occupational status: 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 pets and animals: Yes pets and animals: dog(s) history of recent travel: Yes ([place] - Beginning of Feb 2024) out of state: Yes out of country: No sexually active: Yes Smoking Status: Never smoker second hand exposure: No alcohol intake: current alcohol intake frequency: holidays/special occasions only details: not during substance use type: does not use well-balanced diet: daily or most days caffeine: Yes eating out: rarely or never during the past year weight has: remained stable what type of physical activity do you participate in: walking frequency: 3-4 times per week duration: 15-30 minutes/day jerome/presybeterian: None seatbelt use: always do you feel safe at home: Yes additional social history: : Boubacar grullon History 3 Elective abortions Hx Para 1 Spontaneous abortions 1 Hx # Term Pregnancies Ectopic pregnancies Hx # Pregnancies Multiple births # of living children 1 Past Pregnancies Del. Date Name GA/Weeks Outcome Route Bth Weight Infant Gen Labor Lgth Anesthesia Del Locatn Provider FOB 07/14/22 Bora 39 live - full term 8lbs 6oz Female epidural Aultm an Dr. Deja Hamlin 06/08/23 6 molar Delivery Date: 07/14/22 Last Updated by: Marcela Patrick RN Csec d/t stuck in canal mec aspirate - NICU x6days Delivery Date: 06/08/23 Last Updated by: Marcela Patrick RN D C @ about 8weeks HPI 20 wk ob Details: JERMAIN GERARD is a 24 year old who presents for routine OB visit. OB Visit NATAN Calculator Estimated Delivery Date Method Current WG Current Estimate 10/23/24 LMP (Certain) 20w 4d Other Estimates 10/25/24 Ultrasound #1 20w 2d Expected Delivery Route/Plan wants to try Specific Issue/Plans Covid status: [] Flu vaccine: [] Tdap vaccine: [] Rhogam: [] LARC form signed: [] Problem list reviewed and updated with the most current plan of care details and appropriate orders placed. Relevant counseling for the gestational age provided. Continue routine care and follow up unless otherwise noted in visit notes/problem list details Initial Weight: Not Recorded Date -???-???-???-???-???- ???-???-???-???-???-? ??-???- EGA Weight BP Urine Prot -???-???-???-???-???- ???-???-???-???-???-? ??-???- Glucose FHR FuHt Pres Dilation -???-???-???-???-???- ???-???-???-???-???-? ??-???- Effaced St Visit Note 03/16/24 -???-???-???-???-???- ???-???-???-???-???-? ??-???- 8w 3d 192 lb 6 oz 119/79 -???-???-???-???-???- ???-???-???-???-???-? ??-???- 165 -???-???-???-???-???- ???-???-???-???-???-? ??-???- JV- CRL cons istent with first ultrasound. desires NIPT. will return in 2 weeks to do all labs. 04/13/24 -???-???-???-???-???- ???-???-???-???-???-? ??-???- 12w 3d 193 lb 6 oz 118/84 Negative -???-???-???-???-???- ???-???-???-???-???-? ??-???- Negative 168 -???-???-???-???-???- ???-???-???-???-???-? 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 US ordered. (more content not included)... Normal [facility] - Chemistry and C hemistry - challengeOrdered By: Linh Obregon on 05-09-2024 Glucose Ql (U) Negative [facility] - UrinalysisOrder ed By: Linh Obregon on 05-09-2024 Protein Ql (U) Negative [facility] Office Visit Reporton 05-09-2024 [facility] Office Visit Report [facility] [address], [address] [place] [address] OFFICE VISIT Date of Service: 05/09/24 MR#: [id number] Acct: [id number] Name: JERMAIN GERARD Rep #: [id number] : 2000 Provider: JC barrera Age/Sex: 24/F Location: [facility] Status: Signed Intake Vital Signs 03/16/24 13:16 04/13/24 10:21 05/09/24 08:39 Height 5 ft 5 in 5 ft 5 in 5 ft 5 in Weight: 196 lb 6 oz BMI 32.6 BP 112/76 Intake Visit Reasons: 16 wk ob Chief Complaint: 16 Week OB Vp Scientific Required: No Is patient in pain?: No Allergies No Known Allergies Allergy (Verified 05/09/24 08:39) Medications ???Medication ???Instructions ???Recorded ???Confirmed ???Type organ concentrates 80 mg capsule mg PO 08/02/23 05/09/24 History cholecalciferol (vitamin D3) 10 10 mcg PO QDAY 03/02/24 05/09/24 H istory mcg (400 unit) capsule docosahexaenoic acid 200 mg mg PO 03/02/24 05/09/24 History capsule ( DHA) Last Menstrual Period: 01/17/24 Zika: Zika virus screening: Negative : No PFSH PFSH Medical History Early stage of Partial hydatidiform mole Wears glasses Surgical History S/P D C (status post dilation and curettage) H/O laparoscopy History of delivery Family History Mother Asthma Grandfather COPD (chronic obstructive pulmonary disease) Diabetes Social History adopted: No household members: spouse and children number of children: 1 current occupational status: employed 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/hazards: No pets and animals: Yes pets and animals: dog(s) history of recent travel: Yes ([place] - Beginning of Feb 2024) out of state: Yes out of country: No sexually active: Yes Smoking Status: Never smoker second hand exposure: No alcohol intake: current alcohol intake frequency: holidays/special occasions only details: not during substance use type: does not use well-balanced diet: daily or most days caffeine: Yes eating out: rarely or never during the past year weight has: remained stable what type of physical activity do you participate in: walking frequency: 3-4 times per week duration: 15-30 minutes/day jerome/presybeterian: None seatbelt use: always do you feel safe at home: Yes additional social history: : Boubacar grullon History 3 Elective abortions Hx Para 1 Spontaneous abortions 1 Hx # Term Pregnancies Ectopic pregnancies Hx # Pregnancies Multiple births # of living children 1 Past Pregnancies Del. Date Name GA/Weeks Outcome Route Bth Weight Infant Gen Labor Lgth Anesthesia Del Locatn Provider FOB 07/14/22 Maeli 39 live - full term 8lbs 6oz Female epidural Aultm an Dr. Deja Hamlin 06/08/23 6 molar Delivery Date: 07/14/22 Last Updated by: Marcela Patrick RN Csec d/t stuck in canal mec aspirate - NICU x6days Delivery Date: 06/08/23 Last Updated by: Marcela Patrick RN D C @ about 8weeks HPI 16 wk ob Details: JERMAIN GERARD is a 24 year old who presents for routine OB visit. OB Visit NATAN Calculator Estimated Delivery Date Method Current WG Current Estimate 10/23/24 LMP (Certain) 16w 1d Other Estimates 10/25/24 Ultrasound #1 15w 6d Expected Delivery Route/Plan wants to try Specific Issue/Plans Covid status: [] Flu vaccine: [] Tdap vaccine: [] Rhogam: [] LARC form signed: [] Problem list reviewed and updated with the most current plan of care details and appropriate orders placed. Relevant counseling for the gestational age provided. Continue routine care and follow up unless otherwise noted in visit notes/problem list details Initial Weight: Not Recorded Date -???-???-???-???-???- ???-???-???-???-???-? ??-???- EGA Weight BP Urine Prot -???-???-???-???-???- ???-???-???-???-???-? ??-???- Glucose FHR FuHt Pres Dilation -???-???-???-???-???- ???-???-???-???-???-? ??-???- Effaced St Visit Note 03/16/24 -???-???-???-???-???- ???-???-???-???-???-? ??-???- 8w 3d 192 lb 6 oz 119/79 -???-???-???-???-???- ???-???-???-???-???-? ??-???- 165 -???-???-???-???-???- ???-???-???-???-???-? ??-???- JV- CRL cons istent with first ultrasound. desires NIPT. will return in 2 weeks to do all labs. 04/13/24 -???-???-???-???-???- ???-???-???-???-???-? ??-???- 12w 3d 193 lb 6 oz 118/84 Negative -???-???-???-???-???- ???-???-???-???-???-? ??-???- Negative 168 -???-???-???-???-???- ???-???-???-???-???-? ??-???- (more content not included)... Normal [facility] - Chemistry and C hemistry - challengeOrdered By: Jorge Valente on 04-13-2024 Glucose Ql (U) Negative [facility] - UrinalysisOrder ed By: Jorge Valente on 04-13-2024 Protein Ql (U) Negative [facility] Office Visit Reporton 04-13-2024 [facility] Office Visit Report [facility] [address], [address] [place] [address] OFFICE VISIT Date of Service: 04/13/24 MR#: [id number] Acct: [id number] Name: JERMAIN GERARD Rep #: [id number] : 2000 Provider: FABBY Stephen ams Age/Sex: 24/F Location: [facility] Status: Signed Intake Vital Signs 08/02/23 09:35 03/16/24 13:16 04/13/24 10:21 Height 5 ft 5 in 5 ft 5 in 5 ft 5 in Weight: 193 lb 6 oz BMI 32.1 BP 118/84 H Intake Visit Reasons: 12wk OB Chief Complaint: 12wk ob Is patient in pain?: No Allergies No Known Allergies Allergy (Verified 04/13/24 10:21) Medications ???Medication ???Instructions ???Recorded ???Confirmed ???Type organ concentrates 80 mg capsule mg PO 08/02/23 04/13/24 History cholecalciferol (vitamin D3) 10 10 mcg PO QDAY 03/02/24 04/13/24 H istory mcg (400 unit) capsule docosahexaenoic acid 200 mg mg PO 03/02/24 04/13/24 History capsule ( DHA) Last Menstrual Period: 01/17/24 : No PFSH PFSH Medical History Early stage of Partial hydatidiform mole Wears glasses Surgical History S/P D C (status post dilation and curettage) H/O laparoscopy History of delivery Family History Mother Asthma Grandfather COPD (chronic obstructive pulmonary disease) Diabetes Social History adopted: No household members: spouse and children number of children: 1 current occupational status: employed 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/hazards: No pets and animals: Yes pets and animals: dog(s) history of recent travel: Yes ([place] - Beginning of Feb 2024) out of state: Yes out of country: No sexually active: Yes Smoking Status: Never smoker second hand exposure: No alcohol intake: current alcohol intake frequency: holidays/special occasions only details: not during substance use type: does not use well-balanced diet: daily or most days caffeine: Yes eating out: rarely or never during the past year weight has: remained stable what type of physical activity do you participate in: walking frequency: 3-4 times per week duration: 15-30 minutes/day jerome/presybeterian: None seatbelt use: always do you feel safe at home: Yes additional social history: : Boubacar grullon History 3 Elective abortions Hx Para 1 Spontaneous abortions 1 Hx # Term Pregnancies Ectopic pregnancies Hx # Pregnancies Multiple births # of living children 1 Past Pregnancies Del. Date Name GA/Weeks Outcome Route Bth Weight Infant Gen Labor Lgth Anesthesia Del Locatn Provider FOB 07/14/22 Bora 39 live - full term 8lbs 6oz Female epidural Aultm an Dr. Deja Hamlin 06/08/23 6 molar Delivery Date: 07/14/22 Last Updated by: Marcela Patrick RN Csec d/t stuck in canal mec aspirate - NICU x6days Delivery Date: 06/08/23 Last Updated by: Marcela Patrick RN D C @ about 8weeks HPI 12wk OB Details: JERMAIN GERARD is a 24 year old who presents for routine OB visit. OB Visit NATAN Calculator Estimated Delivery Date Method Current WG Current Estimate 10/23/24 LMP (Certain) 12w 3d Other Estimates 10/25/24 Ultrasound #1 12w 1d Expected Delivery Route/Plan wants to try Specific Issue/Plans Covid status: [] Flu vaccine: [] Tdap vaccine: [] Rhogam: [] LARC form signed: [] Problem list reviewed and updated with the most current plan of care details and appropriate orders placed. Relevant counseling for the gestational age provided. Continue routine care and follow up unless otherwise noted in visit notes/problem list details Initial Weight: Not Recorded Date -???-???-???-???-???- ???-???-???-???-???-? ??-???- EGA Weight BP Urine Prot -???-???-???-???-???- ???-???-???-???-???-? ??-???- Glucose FHR FuHt Pres Dilation -???-???-???-???-???- ???-???-???-???-???-? ??-???- Effaced St Visit Note 03/16/24 -???-???-???-???-???- ???-???-???-???-???-? ??-???- 8w 3d 192 lb 6 oz 119/79 -???-???-???-???-???- ???-???-???-???-???-? ??-???- 165 -???-???-???-???-???- ???-???-???-???-???-? ??-???- JV- CRL cons istent with first ultrasound. desires NIPT. will return in 2 weeks to do all labs. 04/13/24 -???-???-???-???-???- ???-???-???-???-???-? ??-???- 12w 3d 193 lb 6 oz 118/84 Negative -???-???-???-???-???- ???-???-???-???-???-? ??-???- Negative 168 -???-???-???-???-???- ???-???-???-???-???-? 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 US ordered. ACOG First Trimester First Trimester: Discussed (more content not included)... Normal [facility] Absolute lymphocyte countOrd ered By: Holly Ramirez on 03-29-2024 Lymphocytes Auto (Unsp spec) [#/Vol] 1.68 10*3/uL 0.83-4.51 [facility] Absolute neutrophil countOrd ered By: Holly Ramirez on 03-29-2024 Neutrophils (Bld) [#/Vol] 7.5 10*3/uL 2.0-7.7 [facility] Automated lymphocyte count a s percentage of total leukocytesOrdered By: Holly Ramirez on 03-29-2024 Lymphocytes/100 WBC Auto (Unsp spec) 16.1 % Low 19-41 [facility] Basophil percentageOrdered B y: Holly Ashley on 03-29-2024 Basophils/100 WBC (Bld) 0.6 % 0-1 [facility] CBC W/Diff, Automatedon - Absolute Lymph 1.68 X10 3/uL Normal 0.83-4.51 [facility] Comment on above: Performed By: #### L 3890.6100, L501.9985, L100.0100, L3890.6300, L3890.6005, BTS, L509.8000, L509.4005 ####[facility] [address] [place], [place], [id number] Absolute Neut 7.5 X10 3/uL Normal 2.0-7.7 [facility] Comment on above: Performed By: #### L 3890.6100, L501.9985, L100.0100, L3890.6300, L3890.6005, BTS, L509.8000, L509.4005 ####[facility] [address] [place], [address] Basophils/100 WBC (Bld) 0.6 % Normal 0-1 [facility] Comment on above: Performed By: #### L 3890.6100, L501.9985, L100.0100, L3890.6300, L3890.6005, BTS, L509.8000, L509.4005 ####[facility] [address] [place], [address] Eosinophils/100 WBC (Bld) 4.0 % Normal 0-5 [facility] Comment on above: Performed By: #### L 3890.6100, L501.9985, L100.0100, L3890.6300, L3890.6005, BTS, L509.8000, L509.4005 ####[facility] [address] [place], [address] Erythrocyte distribution width (RBC) [Ratio] 12.6 % Normal 11.6-14.6 [facility] Comment on above: Performed By: #### L 3890.6100, L501.9985, L100.0100, L3890.6300, L3890.6005, BTS, L509.8000, L509.4005 ####[facility] [address] [place], [address] Hematocrit (Bld) [Volume fraction] 38.5 % Normal 37-47 [facility] Comment on above: Performed By: #### L 3890.6100, L501.9985, L100.0100, L3890.6300, L3890.6005, BTS, L509.8000, L509.4005 ####[facility] [address] [place], [address] Hemoglobin (Bld) [Mass/Vol] 12.7 g/dL Normal 12.0-15.0 [facility] Comment on above: Performed By: #### L 3890.6100, L501.9985, L100.0100, L3890.6300, L3890.6005, BTS, L509.8000, L509.4005 ####[facility] [address] [place], [address] IG% 0.400 Normal 0.0-0.9 [facility] Comment on above: Result Comment: IG% - Immature Granulocytes (promyelocytes, myelocytes and metamyelocytes) > 1% indicates that a LEFT SHIFT is Present. Performed By: #### L 3890.6100, L501.9985, L100.0100, L3890.6300, L3890.6005, BTS, L509.8000, L509.4005 ####[facility] [address] [place], [address] Lymphocytes/100 WBC (Bld) 16.1 % Low 19-41 [facility] Comment on above: Performed By: #### L 3890.6100, L501.9985, L100.0100, L3890.6300, L3890.6005, BTS, L509.8000, L509.4005 ####[facility] [address] [place], [address] MCH (RBC) [Entitic mass] 29.7 pg Normal 27.0-32.0 [facility] Comment on above: Performed By: #### L 3890.6100, L501.9985, L100.0100, L3890.6300, L3890.6005, BTS, L509.8000, L509.4005 ####[facility] [address] [place], [address] MCHC (RBC) [Mass/Vol] 33.0 g/dL Normal 32-36 [facility] Comment on above: Performed By: #### L 3890.6100, L501.9985, L100.0100, L3890.6300, L3890.6005, BTS, L509.8000, L509.4005 ####[facility] [address] [place], [address] MCV (RBC) [Entitic vol] 90.2 fL Normal 81-99 [facility] Comment on above: Performed By: #### L 3890.6100, L501.9985, L100.0100, L3890.6300, L3890.6005, BTS, L509.8000, L509.4005 ####[facility] [address] [place], [address] Monocytes/100 WBC (Bld) 7.6 % Normal 0-10 [facility] Comment on above: Performed By: #### L 3890.6100, L501.9985, L100.0100, L3890.6300, L3890.6005, BTS, L509.8000, L509.4005 ####[facility] [address] [place], [address] Neutrophils/100 WBC (Bld) 71.3 % High 47-70 [facility] Comment on above: Performed By: #### L 3890.6100, L501.9985, L100.0100, L3890.6300, L3890.6005, BTS, L509.8000, L509.4005 ####[facility] [address] [place], [address] Nucleated RBC (Bld) [#/Vol] 0 10*3/uL Normal 0-5 [facility] Comment on above: Performed By: #### L 3890.6100, L501.9985, L100.0100, L3890.6300, L3890.6005, BTS, L509.8000, L509.4005 ####[facility] [address] [place], [address] Platelet mean volume (Bld) [Entitic vol] 10.2 fL Normal 6.2-12.0 [facility] Comment on above: Performed By: #### L 3890.6100, L501.9985, L100.0100, L3890.6300, L3890.6005, BTS, L509.8000, L509.4005 ####[facility] [address] [place], [address] Platelets (Bld) [#/Vol] 322 10*3/uL Normal 150-450 [facility] Comment on above: Performed By: #### L 3890.6100, L501.9985, L100.0100, L3890.6300, L3890.6005, BTS, L509.8000, L509.4005 ####[facility] [address] [place], [address] RBC (Bld) [#/Vol] 4.27 10*6/uL Normal 4.2-5.4 [facility] Comment on above: Performed By: #### L 3890.6100, L501.9985, L100.0100, L3890.6300, L3890.6005, BTS, L509.8000, L509.4005 ####[facility] [address] [place], [address] RDW SD 41.1 fl Normal 35.1-43.9 [facility] Comment on above: Performed By: #### L 3890.6100, L501.9985, L100.0100, L3890.6300, L3890.6005, BTS, L509.8000, L509.4005 ####[facility] [address] [place], [address] WBC (Bld) [#/Vol] 10.5 10*3/uL Normal 4.4-11.0 [facility] Comment on above: Performed By: #### L 3890.6100, L501.9985, L100.0100, L3890.6300, L3890.6005, BTS, L509.8000, L509.4005 ####[facility] [address] [place], [place], [id number] Eosinophil percentageOrdered By: Holly Ramirez on 03-29-2024 Eosinophils/100 WBC (Bld) 4.0 % 0-5 [facility] Erythrocyte distribution wid th ratioOrdered By: Holly Ramirez on 03-29-2024 Erythrocyte distribution width (RBC) [Ratio] 12.6 % 11.6-14.6 [facility] Erythrocyte distribution wid th standard deviationOrdered By: Holly Ramirez on 03-29-2024 Erythrocyte distribution width (RBC) [Ratio] 41.1 fl 35.1-43.9 [facility] HIV - WCHon 03-29-2024 HIV Non-Reactive Normal Nonreactive [facility] Comment on above: Order Comment: Reaso n for Exam: Performed By: #### L 3890.6100, L501.9985, L100.0100, L3890.6300, L3890.6005, BTS, L509.8000, L509.4005 ####[facility] [address] [place], [place], [id number] HIV 1 and HIV-2 antibody ass ay with HIV-1 p24 antigen detectionOrdered By: Holly Ramirez on 03-29-2024 HIV 1+2 Ab+HIV1 p24 Ag IA Ql Non-Reactive Nonreactive [facility] Hematocrit Auto (Bld) [Volum e fraction]Ordered By: Holly Ramirez on 03-29-2024 Hematocrit (Bld) [Volume fraction] 38.5 % 37-47 [facility] Hemoglobin A1con 03-29-2024 HbA1c (Bld) [Mass fraction] 5.1 % Normal 3.8-5.6 [facility] Comment on above: Result Comment: Norm al < 5.7 % Prediabetic 5.7 - 6.4 % Diabetic >or= 6.5 % Please note range changes. Performed By: #### L 3890.6100, L501.9985, L100.0100, L3890.6300, L3890.6005, BTS, L509.8000, L509.4005 ####[facility] [address] [place], [place], [id number] Hemoglobin A1c percentageOrd ered By: Holly Ramirez on 03-29-2024 HbA1c (Bld) [Mass fraction] 5.1 % 3.8-5.6 [facility] Comment on above: Normal < 5.7 % Predi abetic 5.7 - 6.4 % Diabetic >or= 6.5 % Please note range changes. Hemoglobin measurementOrdere d By: Holly Ramirez on 03-29-2024 Hemoglobin (Bld) [Mass/Vol] 12.7 g/dL 12.0-15.0 [facility] Hepatitis B Surface Antigeno n 03-29-2024 HEP B Surf Ag Non-Reactive Normal Nonreactive [facility] Comment on above: Order Comment: Reaso n for Exam: Performed By: #### L 3890.6100, L501.9985, L100.0100, L3890.6300, L3890.6005, BTS, L509.8000, L509.4005 ####[facility] [address] [place], [place], [id number] Hepatitis C Antibodyon 03-29 Hepatitis C AB Non-Reactive Normal Nonreactive [facility] Comment on above: Order Comment: Reaso n for Exam: Result Comment: Non Reactive: < 0.8 Equivocal: >/= 0.8 to < 1.0 Reactive: >/= 1.0 The CDC requires that a reactive/equivocal HCV antibody result be sent out for confirmation. HCV Quant by PCR testing. Performed By: #### L 3890.6100, L501.9985, L100.0100, L3890.6300, L3890.6005, BTS, L509.8000, L509.4005 ####[facility] [address] [place], [address] Immature granulocytes/100 WB C Auto (Bld)Ordered By: Holly Ramirez on 03-29-2024 Immature granulocytes/100 WBC (Bld) 0.400 % 0.0-0.9 [facility] Comment on above: IG% - Immature Granu locytes (promyelocytes, myelocytes and metamyelocytes) > 1% indicates that a LEFT SHIFT is Present. L509.8000on 03-29-2024 Syphilis Abs Non-Reactive Normal [facility] Comment on above: Order Comment: Reaso n for Exam: Performed By: #### L 3890.6100, L501.9985, L100.0100, L3890.6300, L3890.6005, BTS, L509.8000, L509.4005 ####[facility] [address] [place], [address] MCV (mean corpuscular volume ) determinationOrdered By: Holly Ramirez on 03-29-2024 MCV (RBC) [Entitic vol] 90.2 fL 81-99 [facility] Mean corpuscular hemoglobin (MCH) determinationOrdered By: Holly Ramirez on 03-29-2024 MCH (RBC) [Entitic mass] 29.7 pg 27.0-32.0 [facility] Mean corpuscular hemoglobin concentration (MCHC) determinationOrdered By: Holly Ramirez on 03-29-2024 MCHC (RBC) [Mass/Vol] 33.0 g/dL 32-36 [facility] Mean platelet volume determi nationOrdered By: Holly Ramirez on 03-29-2024 Platelet mean volume (Bld) [Entitic vol] 10.2 fL 6.2-12.0 [facility] Monocyte percentageOrdered B y: Holly Ramirez on 03-29-2024 Monocytes/100 WBC (Bld) 7.6 % 0-10 [facility] NATERAon 03-29-2024 NATURA SEE SCANNED REPORT Normal [facility] Comment on above: Performed By: #### L 900.0098 ####[facility] [address] [place], [address] Neutrophil percentageOrdered By: Holly Ramirez on 03-29-2024 Neutrophils/100 WBC (Bld) 71.3 % High 47-70 [facility] Nucleated red blood cell per centageOrdered By: Holly Ramirez on 03-29-2024 Nucleated RBC/100 WBC (Bld) [Ratio] 0 % 0-5 [facility] Platelet countOrdered By: Marcial Ramirez on 03-29-2024 Platelets (Bld) [#/Vol] 322 10*3/uL 150-450 [facility] RBC Auto (Bld) [#/Vol]Ordere d By: Holly Ramirez on 03-29-2024 RBC (Bld) [#/Vol] 4.27 10*6/uL 4.2-5.4 [facility] Rubella IgGon 03-29-2024 Rubella IgG Reactive Normal Nonreactive [facility] Comment on above: Order Comment: Reaso n for Exam: Result Comment: Anti body Results Interpretation of Immune Status Non Reactive Presumed Non-Immune Equivocal Equivocal Reactive Presumed Immune Performed By: #### L 3890.6100, L501.9985, L100.0100, L3890.6300, L3890.6005, BTS, L509.8000, L509.4005 ####[facility] [address] [place], [place], [id number] Serum Treponema species anti body detectionOrdered By: Holly Ramirez on 03-29-2024 Treponema sp Ab Ql (S) Non-Reactive [facility] Type AND Screenon 03-29-2024 Ab SCREEN GEL Negative Normal [facility] Comment on above: Order Comment: PN Performed By: #### L 3890.6100, L501.9985, L100.0100, L3890.6300, L3890.6005, BTS, L509.8000, L509.4005 ####[facility] [address] [place], [address] White blood cell (WBC) count Ordered By: Holly Ramirez on 03-29-2024 WBC (Bld) [#/Vol] 10.5 10*3/uL 4.4-11.0 [facility] PAP I-G w/rfx hrHPV-Aptimaon 03-21-2024 ADEQ Comment Normal . [facility] Comment on above: Order Comment: Speci men Comment: [id number] Specimen Comment: Source.............Cervix;Endocervix Specimen Comment: Other.............. Specimen Comment: No. of containers..01 ThinPrep Vial Result Comment: Sati sfactory for evaluation. No endocervical component is identified. An endocervical component is not commonly seen in the patient. Performed By: #### L 7000.1800, L7400.0353, M100.2200 #### [facility] [address] [place], [address] COMM . Normal . [facility] Comment on above: Order Comment: Speci men Comment: [id number] Specimen Comment: Source.............Cervix;Endocervix Specimen Comment: Other.............. Specimen Comment: No. of containers..01 ThinPrep Vial Performed By: #### L 7000.1800, L7400.0353, M100.2200 #### [facility] [address] [place], [place], [address] COMMENT Comment Normal . [facility] Comment on above: Order Comment: Speci men Comment: [id number] Specimen Comment: Source.............Cervix;Endocervix Specimen Comment: Other.............. Specimen Comment: No. of containers..01 ThinPrep Vial Result Comment: This liquid based ThinPrep(R) pap test was screened with the use of an image guided system. Performed By: #### L 7000.1800, L7400.0353, M100.0 #### [facility] [address] [place], [address] DIAG Comment Normal . [facility] Comment on above: Order Comment: Speci men Comment: [id number] Specimen Comment: Source.............Cervix;Endocervix Specimen Comment: Other.............. Specimen Comment: No. of containers..01 ThinPrep Vial Result Comment: NEGA TIVE FOR INTRAEPITHELIAL LESION OR MALIGNANCY. Performed By: #### L 7000.1800, L7400.0353, .2199 #### [facility] [address] [place], [place], [id number] HPV RFLX Comment Normal . [facility] Comment on above: Order Comment: Speci men Comment: [id number] Specimen Comment: Source.............Cervix;Endocervix Specimen Comment: Other.............. Specimen Comment: No. of containers..01 ThinPrep Vial Result Comment: The HPV DNA reflex criteria were not met with this specimen result therefore, no HPV testing was performed. Performed at: - [facility] [address] [id number] [employer] Manager: Hitesh Tinajero MD, Phone: [phone] Performed at: - [address] [id number] [employer] Manager: Homa Rowell MD, Phone: [phone] Performed By: #### L 7000.1800, L7400.0353, .0 #### [facility] [address] [place], [place], [address] PAPSMR Comment Normal . [facility] Comment on above: Order Comment: Speci men Comment: [id number] Specimen Comment: Source.............Cervix;Endocervix Specimen Comment: Other.............. Specimen Comment: No. of containers..01 ThinPrep Vial Result Comment: The Pap smear is a screening test designed to aid in the detection of premalignant and malignant conditions of the uterine cervix. It is not a diagnostic procedure and should not be used as the sole means of detecting cervical cancer. Both false-positive and false-negative reports do occur. Performed By: #### L 7000.1800, L7400.0353, M100.2200 #### [facility] [address] [place], [address] PERFORM Comment Normal . [facility] Comment on above: Order Comment: Speci men Comment: [id number] Specimen Comment: Source.............Cervix;Endocervix Specimen Comment: Other.............. Specimen Comment: No. of containers..01 ThinPrep Vial Result Comment: Siria To Rug Inspector (ASCP) Performed By: #### L 7000.1800, L7400.0353, M100.2200 #### [facility] [address] [place], [address] Chlamydia/GC LISA aptimaon CHLAMY,NUC ACID Negative Normal Negative [facility] Comment on above: Performed By: #### L 7000.1800, L7400.0353, M100.2200 #### [facility] [address] [place], [address] GC BY NUC ACID Negative Normal Negative [facility] Comment on above: Result Comment: Perf ormed at: =G - [facility] [id number] [employer] Manager: Homa Rowell MD, Phone: [phone] Performed By: #### L 7000.1800, L7400.0353, M100.2200 #### [facility] [address] [place], [address] Urine Cultureon 03-19-2024 URC Below infection level. Mixed Gram Positive Organisms Penelope Count <1000 MIXC Mixed contaminants. Submit a new specimen if indicated. Normal [facility] Comment on above: Performed By: #### L 7000.1800, L7400.0353, M100.2200 #### [facility] [address] [place], [address] Cervical or vagninal specime n microscopic examination by cytology stain (reported asOrdered By: Holly Ramirez on 03-16-2024 Cytology report Cyto stain Doc (Cvx/Vag) Comment . [facility] Comment on above: The Pap smear is a s creening test designed to aid in thedetection of premalignant and malignant conditions of theuterine cervix. It is not a diagnostic procedure andshould not be used as the sole means of detecting cervicalcancer. Both false-positive and false-negative reports dooccur. Chlamydia trachomatis rRNA d etection by probe and target amplification methodOrdered By: Holly Ramirez on 03-16-2024 C. trachomatis rRNA LISA+probe Ql (Unsp spec) Negative Negative [facility] - CytologyOrdered By: Holly Ramirez on 03-16-2024 Extractor Puller Cyto stain Nom (Cvx/Vag) [ID] Comment . [facility] Comment on above: Bobby Hartman chnologist (ASCP) Laboratory - Miscellaneous t estsOrdered By: Holly Ramirez on 03-16-2024 Service comment (Unsp spec) [Interp] . . [facility] Neisseria gonorrhoeae nuclei c acid detection by amplified probe techniqueOrdered By: Holly Ramirez on 03-16-2024 N. gonorrhoeae DNA LISA+probe Ql (Unsp spec) Negative Negative [facility] Comment on above: Performed at: =[address] [id number] Director: Homa Rowell MD, Phone: [phone] No Panel InformationOrdered By: Holly Ramirez on 03-16-2024 Pap Smear Specimen Adequacy Comment . [facility] Comment on above: Satisfactory for mendez luation. No endocervical component is identified.An endocervical component is not commonly seen in the patient. [facility] Office Visit Reporton 03-16-2024 [facility] Office Visit Report [facility] [address], [address] [place] [address] OFFICE VISIT Date of Service: 03/16/24 MR#: [id number] Acct: [id number] Name: JERMAIN GERARD Rep #: [id number] : 2000 Provider: Dr. Holly Gallegos DO Age/Sex: 24/F Location: [facility] Status: Signed Intake Vital Signs 08/02/23 09:35 03/16/24 13:16 03/16/24 13:16 Height 5 ft 5 in 5 ft 5 in 5 ft 5 in Weight: 192 lb 6 oz BMI 32.0 BP 119/79 Intake Visit Reasons: New OB, LMP 01/16, NATAN 10/23/24 Vp Scientific Required: No Is patient in pain?: No Allergies No Known Allergies Allergy (Verified 03/16/24 13:16) Medications ???Medication ???Instructions ???Recorded ???Confirmed ???Type organ concentrates 80 mg capsule mg PO 08/02/23 03/16/24 History cholecalciferol (vitamin D3) 10 10 mcg PO QDAY 03/02/24 03/16/24 H istory mcg (400 unit) capsule docosahexaenoic acid 200 mg mg PO 03/02/24 03/16/24 History capsule ( DHA) Last Menstrual Period: 01/17/24 Zika: Zika virus screening: Negative : No PFSH PFSH Medical History Early stage of Partial hydatidiform mole Wears glasses Surgical History S/P D C (status post dilation and curettage) H/O laparoscopy History of delivery Family History Mother Asthma Grandfather COPD (chronic obstructive pulmonary disease) Diabetes Social History adopted: No household members: spouse and children number of children: 1 current occupational status: 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 pets and animals: Yes pets and animals: dog(s) history of recent travel: Yes ([place] - Beginning of Feb 2024) out of state: Yes out of country: No sexually active: Yes Smoking Status: Never smoker second hand exposure: No alcohol intake: current alcohol intake frequency: holidays/special occasions only details: not during substance use type: does not use well-balanced diet: daily or most days caffeine: Yes eating out: rarely or never during the past year weight has: remained stable what type of physical activity do you participate in: walking frequency: 3-4 times per week duration: 15-30 minutes/day jerome/presybeterian: None seatbelt use: always do you feel safe at home: Yes additional social history: : Boubacar grullon History 3 Elective abortions Hx Para 1 Spontaneous abortions 1 Hx # Term Pregnancies Ectopic pregnancies Hx # Pregnancies Multiple births # of living children 1 Past Pregnancies Del. Date Name GA/Weeks Outcome Route Bth Weight Gen Labor Lgth Anesthesia Del [facility] Provider FOB 07/14/22 Bora 39 live - full term 8lbs 6oz Female epidural Aultm an Dr. Deja Hamlin 06/08/23 6 molar Delivery Date: 07/14/22 Last Updated by: Marcela Patrick RN Csec d/t stuck in canal mec aspirate - NICU x6days Delivery Date: 06/08/23 Last Updated by: Marcela Patrick RN D C @ about 8weeks HPI New OB, LMP 01/16, NATAN 10/23/24 Details: JERMAIN GERARD is a 24 year old who presents for New OB visit. OB Visit NATAN Calculator Estimated Delivery Date Method Current WG Current Estimate 10/23/24 LMP (Certain) 8w 3d Other Estimates 10/25/24 Ultrasound #1 8w 1d Estimated Due Date: 10/23/24 Expected Delivery Route/Plan wants to try Specific Issue/Plans Covid status: [] Flu vaccine: [] Tdap vaccine: [] Rhogam: [] LARC form signed: [] Problem list reviewed and updated with the most current plan of care details and appropriate orders placed. Relevant counseling for the gestational age provided. Continue routine care and follow up unless otherwise noted in visit notes/problem list details Initial Weight: Not Recorded Date -???-???-???-???-???- ???-???-???-???-???-? ??-???- EGA Weight BP Urine Prot -???-???-???-???-???- ???-???-???-???-???-? ??-???- Glucose FHR FuHt Pres Dilation -???-???-???-???-???- ???-???-???-???-???-? ??-???- Effaced St Visit Note 03/16/24 -???-???-???-???-???- ???-???-???-???-???-? ??-???- 8w 3d 192 lb 6 oz 119/79 -???-???-???-???-???- ???-???-???-???-???-? ??-???- 165 -???-???-???-???-???- ???-???-???-???-???-? ??-???- JV- CRL cons istent with first ultrasound. desires NIPT. will return in 2 weeks to do all labs. Menstrual History Last Menstrual Period: 01/17/24 Reported LMP: definite Normal amount/duration: Yes Frequency in days: 32 On hormonal BC at conception: No hCG+: 0 (more content not included)... Normal [facility] Urine cultureOrdered By: Lilly Ramirez on 03-16-2024 Bacteria identified Cx Nom (U) Positive Abnormal [facility] Transvaginal w/Preg USon Transvaginal w/Preg US [facility] [address] [place] [address] Transvaginal w/Preg US MR#: [id number] Acct: [id number] Name: JERMAIN GERARD Rep #: [id number] : 2000 F 23 From: Ira Li MD PCP: Care Physician,No Primary Status: REG CLI Study: Transvaginal w/Preg US Date of Exam: 03/05/24 Exam# [id number] Ordering Dr: Linh Obregon CARD SERVICES SPECIALIST CARD SERVICES SPECIALIST -[id number] INDICATION: viability, dating EXAMINATION: Ultrasound US OB Transvaginal TECHNIQUE: Transvaginal (for optimal evaluation of the adnexa) pelvic ultrasound was performed. Grayscale, spectral waveform, and color flow Doppler evaluation of the adnexa. COMPARISON: July 06, 2023 __ LMP: [January 17, 2024 FINDINGS: UTERUS: 10.0 x 6.7 x 5.1 cm. RIGHT OVARY: 2.8 x 3.8 x 3.0 cm. Doppler flows within normal limits. There appears to be a corpus luteal cyst within the right ovary. LEFT OVARY: 2.2 x 3.8 x 2.4 cm. Doppler flows within normal limits. FREE FLUID: None. INTRAUTERINE GESTATIONAL SAC: Single. The mean sac diameter measures 1.73 cm YOLK SAC: Identified and measures 0.34 cm. POLE: Identified. 0.47 cm. ESTIMATED GESTATION AGE: 6 weeks and 4 days. HEART MOTION: 117 bpm. PLACENTA: Not visualized due to age. US/Transvaginal w/Preg US IMPRESSION: Single live intrauterine . Estimated gestational age is 6 weeks and 4 days. Electronically Signed: Ira Li MD at 8:08 EST , CC: JC Obregon; Dr. Laya Pugh MD; No Primary Care Physician [employer] Mechanic: Signed Normal [facility] hCG Titer Quant., Serumon HCG QUANT. 58608 mIU/mL [address] Comment on above: Result Comment: hCG levels with Gestational Age Gestational Age hCG mIU/mL (IU/L) 0.2 - 1 week 5 - 50 1-2 weeks 50 - 500 2-3 weeks 100 - 5000 3-4 weeks 500 - 54539 4-5 weeks 1000 - 40666 5-6 weeks 24819 - 100,000 6-8 weeks 61479 - 200,000 2-3 months 11038 - 100,000 Performed By: #### L 700.8000 ####[facility] [address] [place], [place], [address] hCG Titer Quant., Serumon HCG QUANT. 5287 mIU/mL [address] Comment on above: Result Comment: hCG levels with Gestational Age Gestational Age hCG mIU/mL (IU/L) 0.2 - 1 week 5 - 50 1-2 weeks 50 - 500 2-3 weeks 100 - 5000 3-4 weeks 500 - 48185 4-5 weeks 1000 - 57418 5-6 weeks 55407 - 100,000 6-8 weeks 44842 - 200,000 2-3 months 27846 - 100,000 Performed By: #### L 700.8000 #### [facility] [address] [facility] [place], [place], [id number] hCG Titer Quant., Serumon HCG QUANT. 1012 mIU/mL [address] Comment on above: Result Comment: hCG levels with Gestational Age Gestational Age hCG mIU/mL (IU/L) 0.2 - 1 week 5 - 50 1-2 weeks 50 - 500 2-3 weeks 100 - 5000 3-4 weeks 500 - 97369 4-5 weeks 1000 - 46375 5-6 weeks 89181 - 100,000 6-8 weeks 51741 - 200,000 2-3 months 64720 - 100,000 Performed By: #### L 700.8000 ####[facility] [address] [place], [address] hCG Titer Quant., Serumon HCG QUANT. 559 mIU/mL High 1-3 [facility] Comment on above: Result Comment: hCG levels with Gestational Age Gestational Age hCG mIU/mL (IU/L) 0.2 - 1 week 5 - 50 1-2 weeks 50 - 500 2-3 weeks 100 - 5000 3-4 weeks 500 - 15308 4-5 weeks 1000 - 68119 5-6 weeks 97393 - 100,000 6-8 weeks 40226 - 200,000 2-3 months 92098 - 100,000 Performed By: #### L 700.8000 ####[facility] [address] [place], [address] Basophil percentageOrdered B y: Fernando Shirley on 06-17-2023 Basophil percentage 0-5 SEEN /hpf 0-5 [facility] Bilirubin Test strip Ql (U)O rdered By: Fernando Shirley on 06-17-2023 Bilirubin Ql (U) Negative Negative [facility] Ketones Test strip Ql (U)Ord ered By: Fernando Shirley on 06-17-2023 Ketones Ql (U) Negative Negative [facility] Mucus LM Ql (Urine sed)Order ed By: Fernando Shirley on 06-17-2023 Mucus Ql (Urine sed) 0 SEEN /hpf [facility] Nitrite Test strip Ql (U)Ord ered By: Fernando Shirley on 06-17-2023 Nitrite Ql (U) Negative Negative [facility] No Panel InformationOrdered By: Fernando Shirley on 06-17-2023 Urine RBC > 100 SEEN /hpf 0-5 [facility] Protein Test strip Ql (U)Ord ered By: Fernando Shirley on 06-17-2023 Protein Ql (U) 100 mg/dl Negative [facility] Serum or plasma choriogonado tropin detectionOrdered By: Fernando Shirley on 06-17-2023 HCG ( test) Ql 1873 mIU/mL <4 [facility] Comment on above: hCG levels with Gest ational AgeGestational Age hCG mIU/mL (IU/L)0.2 - 1 week 5 - 501-2 weeks 50 - 5002-3 weeks 100 - 51406-0 weeks 500 - 773658-8 weeks 1000 - 337204-3 weeks 32383 - 100,0006-8 weeks 08866 - 200,0002-3 months 97667 - 100,000 Squamous epithelial cells de tection in urine sediment by light microscopyOrdered By: Fernando Shirley on 06-17-2023 Epithelial cells.squamous LM Ql (Urine sed) 0 SEEN /hpf 06-16 [facility] Urine blood detectionOrdered By: Fernando Shirley on 06-17-2023 RBC Ql (U) 250 /ul Negative [facility] Urine clarityOrdered By: Wilber Shirley on 06-17-2023 Clarity (U) Cloudy Clear [facility] Urine color determinationOrd ered By: Fernando Shirley on 06-17-2023 Color (U) Red Yellow [facility] Urine glucose detectionOrder ed By: Fernando Shirley on 06-17-2023 Glucose Ql (U) Normal mg/dl Normal [facility] Urine leukocyte esterase det ection by dipstickOrdered By: Fernando Shirley on 06-17-2023 Leukocyte esterase Test strip Ql (U) 25 /ul Negative [facility] Urine pHOrdered By: Fernando Shirley on 06-17-2023 pH (U) 7.0 [pH] 5.0 - 8.0 [facility] Urine sediment bacteria coun t by microscopy (number/high power field)Ordered By: Fernando Shirley on 06-17-2023 Bacteria LM.HPF (Urine sed) [#/Area] RARE /hpf None Seen [facility] Urine specific gravity measu rementOrdered By: Fernando Shirley on 06-17-2023 Specific gravity (U) [Rel density] 1.015 1.002-1.030 [facility] Urine urobilinogen measureme ntOrdered By: Fernando Shirley on 06-17-2023 Urobilinogen Ql (U) Normal mg/dl Normal [facility] .GFRon 07-17-2022 GFR >60 Normal [facility] ([place]) Comment on above: Result Comment: GFR Population mean for , Non- Americans Ages 20-29 = 116 mL/min/1.73 sq.m. Ages 30-39 = 107 mL/min/1.73 sq.m. Ages 40-49 = 99 mL/min/1.73 sq.m. Ages 50-59 = 93 mL/min/1.73 sq.m. Ages 60-69 = 85 mL/min/1.73 sq.m. Ages 70+ = 75 mL/min/1.73 sq.m. Chronic Kidney Disease: Less than 60 mL/min/1.73 square meters End Stage Renal Disease: Less than 15 mL/min/1.73 square meters Performed By: #### L AC #### [address] [address] GFR Non- >60 Normal [facility] ([place]) Comment on above: Result Comment: GFR Population mean for , Non- Americans Ages 20-29 = 116 mL/min/1.73 sq.m. Ages 30-39 = 107 mL/min/1.73 sq.m. Ages 40-49 = 99 mL/min/1.73 sq.m. Ages 50-59 = 93 mL/min/1.73 sq.m. Ages 60-69 = 85 mL/min/1.73 sq.m. Ages 70+ = 75 mL/min/1.73 sq.m. Chronic Kidney Disease: Less than 60 mL/min/1.73 square meters End Stage Renal Disease: Less than 15 mL/min/1.73 square meters Performed By: #### L AC #### [address] [address] .Manual Diffon 07-17-2022 Bands 2.0 % Normal 0.0-5.0 [facility] ([place]) Comment on above: Performed By: #### L AC #### [address] [address] Basophil %, Manual 0.0 % Normal 0.0-2.5 [facility] ([place]) Comment on above: Performed By: #### L AC #### [address] [address] Basophil, Abs Manual 0.0 10 3/mcL Normal 0.0-0.3 [facility] ([place]) Comment on above: Performed By: #### L AC #### [address] [address] Eosinophil %, Manual 1.0 % Normal 0.0-6.0 [facility] ([place]) Comment on above: Performed By: #### L AC #### [address] [address] Eosinophil, Abs Manual 0.1 10 3/mcL Normal 0.0-0.7 [facility] ([place]) Comment on above: Performed By: #### L AC #### [address] [address] Lymphocyte %, Manual 7.0 % Low 20.0-40.0 [facility] ([place]) Comment on above: Performed By: #### L AC #### [address] [address] Lymphocyte, Abs Manual 0.4 10 3/mcL Low 0.9-4.3 [facility] ([place]) Comment on above: Performed By: #### L AC #### [address] [address] Metamyelocyte 5.0 % Normal [facility] ([place]) Comment on above: Performed By: #### L AC #### [place] [id number] Monocyte %, Manual 6.0 % Normal 2.0-13.0 [facility] ([place]) Comment on above: Performed By: #### L AC #### [address] [address] Monocyte, Abs Manual 0.3 10 3/mcL Normal 0.1-1.4 [facility] ([place]) Comment on above: Performed By: #### L AC #### [place] [id number] Neutrophil %, Manual 79.0 % High 50.0-75.0 [facility] ([place]) Comment on above: Performed By: #### L AC #### [address] [address] Neutrophil, Abs Manual 4.7 10 3/mcL Normal 2.3-8.1 [facility] ([place]) Comment on above: Performed By: #### L AC #### [place] [id number] Nucleated RBC 0.0 /100 WBC Normal [facility] ([place]) Comment on above: Performed By: #### L AC #### [place] [address] .Morphon 07-17-2022 Platelet Estimate Normal Normal [facility] ([place]) Comment on above: Performed By: #### L AC #### [place] [address] RBC morphology finding Nom (Bld) See Below Normal [facility] ([place]) Comment on above: Result Comment: RBC Morphology appears Normal Performed By: #### L AC #### [place] [id number] BMPon 07-17-2022 BUN/Creatinine Ratio 11.8 ratio Normal 10.0-22.0 [facility] ([place]) Comment on above: Performed By: #### Cadence Hirsch UAMIC #### [place] [address] Calcium [Mass/Vol] 8.2 mg/dL Low 8.7-10.4 [facility] ([place]) Comment on above: Performed By: #### Cadence Hirsch UAMIC #### [place] [id number] Chloride [Moles/Vol] 108 mmol/L Normal 98-110 [facility] ([place]) Comment on above: Performed By: #### U Joycelyn UAMIC #### [place] [id number] CO2 [Moles/Vol] 26 mmol/L Normal 22-32 [facility] ([place]) Comment on above: Performed By: #### U Joycelyn UAMIC #### [place] [address] Creatinine [Mass/Vol] 0.51 mg/dL Normal 0.50-1.20 [facility] ([place]) Comment on above: Performed By: #### U A UAMIC #### [address] [address] Electrolyte Balance 8.0 mEq/L Normal 4.0-15.0 [facility] ([place]) Comment on above: Performed By: #### U A, UAMIC #### [address] [address] Glucose [Mass/Vol] 91 mg/dL Normal 70-110 [facility] ([place]) Comment on above: Performed By: #### U A, UAMIC #### [place] [id number] Potassium [Moles/Vol] 3.5 mmol/L Normal 3.5-5.0 [facility] ([place]) Comment on above: Result Comment: Spec imen slightly hemolyzed. Performed By: #### U A UAMIC #### [place] [id number] Sodium [Moles/Vol] 142 mmol/L Normal 136-145 [facility] ([place]) Comment on above: Performed By: #### U Joycelyn UAMIC #### [place] [id number] Urea nitrogen [Mass/Vol] 6.0 mg/dL Low 8.0-22.0 [facility] ([place]) Comment on above: Performed By: #### U A UAMIC #### [address] [address] CBCon 07-17-2022 Erythrocyte distribution width (RBC) [Ratio] 13.3 % Normal 11.5-15.5 [facility] ([place]) Comment on above: Performed By: #### L AC #### [address] [address] Hematocrit (Bld) [Volume fraction] 24.8 % Low 34.0-46.0 [facility] ([place]) Comment on above: Performed By: #### L AC #### [address] [address] Hgb 8.6 G/dL Low 12.0-16.0 [facility] ([place]) Comment on above: Performed By: #### L AC #### [place] [address] MCH (RBC) [Entitic mass] 32.2 pg Normal 27.0-33.0 [facility] ([place]) Comment on above: Performed By: #### L AC #### [place] [address] MCHC 34.7 G/dL Normal 32.0-36.0 [facility] ([place]) Comment on above: Performed By: #### L AC #### [place] [address] MCV (RBC) [Entitic vol] 92.8 fL Normal 80.0-99.0 A Counts include 234 beds at the [facility] ([place]) Comment on above: Performed By: #### L AC #### [place] [address] Platelet 211 10 3/mcL Normal 150-450 [facility] ([place]) Comment on above: Performed By: #### L AC #### [place] [address] Platelet mean volume (Bld) [Entitic vol] 8.2 fL Normal 6.6-10.5 [facility] ([place]) Comment on above: Performed By: #### L AC #### [place] [address] RBC 2.67 10 6/mcL Low 4.10-5.30 [facility] ([place]) Comment on above: Performed By: #### L AC #### [place] [address] WBC 5.9 10 3/mcL Normal 4.5-10.8 [facility] ([place]) Comment on above: Performed By: #### L AC #### [place] [address] LABORATORYOrdered By: SYSTEM SYSTEM on 07-17-2022 Band form neutrophils/100 WBC (Bld) 2.0 % Invalid Interpretation Code 0.0 - 5.0 % AH Workflow SS Basophils (Bld) [#/Vol] 0.0 103/mcL Invalid Interpretation Code 0.0 - 0.3 10^3/mcL Workflow SS Basophils/100 WBC (Bld) 0.0 % Invalid Interpretation Code 0.0 - 2.5 % AH Workflow SS Calcium [Mass/Vol] 8.2 mg/dL Invalid Interpretation Code 8.7 - 10.4 mg/dL ADM SS Chloride [Moles/Vol] 108 mmol/L Invalid Interpretation Code 98 - 110 mEq/L ADM SS CO2 [Moles/Vol] 26 mmol/L Invalid Interpretation Code 22 - 32 mEq/L ADM SS Creatinine [Mass/Vol] 0.51 mg/dL Invalid Interpretation Code 0.50 - 1.20 mg/dL ADM SS Electrolyte Balance 8.0 mEq/L Invalid Interpretation Code 4.0 - 15.0 mEq/L ADM SS Eosinophils (Bld) [#/Vol] 0.1 103/mcL Invalid Interpretation Code 0.0 - 0.7 10^3/mcL Workflow SS Eosinophils/100 WBC (Bld) 1.0 % Invalid Interpretation Code 0.0 - 6.0 % Workflow SS Erythrocyte distribution width (RBC) [Ratio] 13.3 % Invalid Interpretation Code 11.5 - 15.5 % Workflow SS GFR/1.73 sq M.predicted among blacks MDRD (S/P/Bld) [Vol rate/Area] ml/min/1.73sqm Invalid Interpretation Code ADM SS GFR/1.73 sq M.predicted among non-blacks MDRD (S/P/Bld) [Vol rate/Area] ml/min/1.73sqm Invalid Interpretation Code ADM SS Glucose [Mass/Vol] 91 mg/dL Invalid Interpretation Code 70 - 110 mg/dL ADM SS Hematocrit (Bld) [Volume fraction] 24.8 % Invalid Interpretation Code 34.0 - 46.0 % Workflow SS Hemoglobin (Bld) [Mass/Vol] 8.6 G/dL Invalid Interpretation Code 12.0 - 16.0 G/dL Workflow SS Lymphocytes (Bld) [#/Vol] 0.4 103/mcL Invalid Interpretation Code 0.9 - 4.3 10^3/mcL Workflow SS Lymphocytes/100 WBC (Bld) 7.0 % Invalid Interpretation Code 20.0 - 40.0 % AH Workflow SS MCH (RBC) [Entitic mass] 32.2 pg Invalid Interpretation Code 27.0 - 33.0 pg AH Workflow SS MCHC 34.7 G/dL Invalid Interpretation Code 32.0 - 36.0 G/dL AH Workflow SS MCV (RBC) [Entitic vol] 92.8 fL Invalid Interpretation Code 80.0 - 99.0 fL AH Workflow SS Metamyelocytes/100 WBC (Bld) 5.0 % Invalid Interpretation Code AH Workflow SS Monocytes (Bld) [#/Vol] 0.3 103/mcL Invalid Interpretation Code 0.1 - 1.4 10^3/mcL AH Workflow SS Monocytes/100 WBC (Bld) 6.0 % Invalid Interpretation Code 2.0 - 13.0 % AH Workflow SS Neutrophils (Bld) [#/Vol] 4.7 103/mcL Invalid Interpretation Code 2.3 - 8.1 10^3/mcL AH Workflow SS Neutrophils/100 WBC (Bld) 79.0 % Invalid Interpretation Code 50.0 - 75.0 % AH Workflow SS Nucleated RBC 0.0 /100 WBC Invalid Interpretation Code AH Workflow SS Platelet mean volume (Bld) [Entitic vol] 8.2 fL Invalid Interpretation Code 6.6 - 10.5 fL AH Workflow SS Platelets (Bld) [#/Vol] 211 103/mcL Invalid Interpretation Code 150 - 450 10^3/mcL AH Workflow SS Platelets LM Ql (Bld) Normal *NA* (07/17/22 4:08 AM) Invalid Interpretation Code AH Workflow SS Potassium [Moles/Vol] 3.5 mmol/L Invalid Interpretation Code 3.5 - 5.0 mEq/L ADM SS Comment on above: Result Comment: Spec imen slightly hemolyzed. RBC (Bld) [#/Vol] 2.67 106/mcL Invalid Interpretation Code 4.10 - 5.30 10^6/mcL AH Workflow SS RBC morphology finding Nom (Bld) See Below 1 *NA* (07/17/22 4:08 AM) Invalid Interpretation Code Workflow SS Comment on above: Result Comment: RBC Morphology appears Normal Sodium [Moles/Vol] 142 mmol/L Invalid Interpretation Code 136 - 145 mEq/L ADM SS Urea nitrogen [Mass/Vol] 6.0 mg/dL Invalid Interpretation Code 8.0 - 22.0 mg/dL AH ADM SS Urea nitrogen/Creatinine [Mass ratio] 11.8 ratio Invalid Interpretation Code 10.0 - 22.0 ratio AH ADM SS WBC (Bld) [#/Vol] 5.9 103/mcL Invalid Interpretation Code 4.5 - 10.8 10^3/mcL AH Workflow SS .Auto Diffon 07-16-2022 Basophil, Absolute 0.0 10 3/mcL Normal 0.0-0.3 [facility] ([place]) Comment on above: Performed By: #### T ABHI #### [address] [address] Basophils/100 WBC (Bld) 0.2 % Normal 0.0-2.5 A Counts include 234 beds at the [facility] ([place]) Comment on above: Performed By: #### T ABHI #### [address] [address] Eosinophil, Absolute 0.0 10 3/mcL Normal 0.0-0.7 [facility] ([place] Comment on above: Performed By: #### T ABHI #### [address] [address] Eosinophils/100 WBC (Bld) 0.4 % Normal 0.0-6.0 [facility] ([place]) Comment on above: Performed By: #### T ABHI #### [address] [address] Lymphocyte, Absolute 0.8 10 3/mcL Low 0.9-4.3 [facility] ([place]) Comment on above: Performed By: #### T ABHI #### [address] [address] Lymphocytes/100 WBC (Bld) 6.8 % Low 20.0-40.0 [facility] ([place]) Comment on above: Performed By: #### T ABHI #### [address] [address] Monocyte, Absolute 0.4 10 3/mcL Normal 0.1-1.4 [facility] ([place]) Comment on above: Performed By: #### T ABHI #### [address] [address] Monocytes/100 WBC (Bld) 3.6 % Normal 2.0-13.0 A Counts include 234 beds at the [facility] ([place]) Comment on above: Performed By: #### T [facility] #### [address] [address] Neutrophils/100 WBC (Bld) 89.0 % High 50.0-75.0 [facility] ([place]) Comment on above: Performed By: #### T [facility] #### [address] [address] .GFRon 07-16-2022 GFR Non- >60 Normal [facility] ([place]) Comment on above: Result Comment: GFR Population mean for , Non- Americans Ages 20-29 = 116 mL/min/1.73 sq.m. Ages 30-39 = 107 mL/min/1.73 sq.m. Ages 40-49 = 99 mL/min/1.73 sq.m. Ages 50-59 = 93 mL/min/1.73 sq.m. Ages 60-69 = 85 mL/min/1.73 sq.m. Ages 70+ = 75 mL/min/1.73 sq.m. Chronic Kidney Disease: Less than 60 mL/min/1.73 square meters End Stage Renal Disease: Less than 15 mL/min/1.73 square meters Performed By: #### U A UAMIC #### [address] [address] GFR >60 Normal [facility] ([place]) Comment on above: Result Comment: GFR Population mean for , Non- Americans Ages 20-29 = 116 mL/min/1.73 sq.m. Ages 30-39 = 107 mL/min/1.73 sq.m. Ages 40-49 = 99 mL/min/1.73 sq.m. Ages 50-59 = 93 mL/min/1.73 sq.m. Ages 60-69 = 85 mL/min/1.73 sq.m. Ages 70+ = 75 mL/min/1.73 sq.m. Chronic Kidney Disease: Less than 60 mL/min/1.73 square meters End Stage Renal Disease: Less than 15 mL/min/1.73 square meters Performed By: #### U A, UAMIC #### [address] [address] .NEUABSon 07-16-2022 Neutrophil, Absolute 9.8 10 3/mcL High 2.3-8.1 [facility] ([place]) Comment on above: Performed By: #### U MAYTE Hirsch #### [address] [address] CBCon 07-16-2022 Erythrocyte distribution width (RBC) [Ratio] 13.1 % Normal 11.5-15.5 [facility] ([place]) Comment on above: Performed By: #### T ABHI #### [place] [id number] Hematocrit (Bld) [Volume fraction] 24.8 % Low 34.0-46.0 [facility] ([place]) Comment on above: Performed By: #### T ABHI #### [place] [address] Hgb 8.5 G/dL Low 12.0-16.0 [facility] ([place]) Comment on above: Performed By: #### T ABHI #### [address] [address] MCH (RBC) [Entitic mass] 31.8 pg Normal 27.0-33.0 [facility] ([place]) Comment on above: Performed By: #### T ABHI #### [place] [address] MCHC 34.3 G/dL Normal 32.0-36.0 [facility] ([place]) Comment on above: Performed By: #### T ABHI #### [place] [id number] MCV (RBC) [Entitic vol] 92.5 fL Normal 80.0-99.0 A Counts include 234 beds at the [facility] ([place]) Comment on above: Performed By: #### T ABHI #### [place] [id number] Platelet 192 10 3/mcL Normal 150-450 [facility] ([place]) Comment on above: Performed By: #### T ABHI #### [place] [id number] Platelet mean volume (Bld) [Entitic vol] 8.2 fL Normal 6.6-10.5 [facility] ([place]) Comment on above: Performed By: #### T ABHI #### [place] [id number] RBC 2.68 10 6/mcL Low 4.10-5.30 [facility] ([place]) Comment on above: Performed By: #### T ABHI #### [place] [address] WBC 11.0 10 3/mcL High 4.5-10.8 [facility] ([place]) Comment on above: Performed By: #### T ABHI #### [place] [address] CMPon 07-16-2022 Albumin Level 1.5 G/dL Low 3.2-4.8 [facility] ([place]) Comment on above: Performed By: #### MAYTE Arshad #### [place] [address] Albumin/Globulin [Mass ratio] 0.5 {ratio} Low 0.9-1.6 [facility] ([place]) Comment on above: Performed By: #### MAYTE Arshad #### [place] [id number] ALP [Catalytic activity/Vol] 80 U/L Normal 38-126 [facility] ([place]) Comment on above: Performed By: #### MAYTE Arshad #### [place] [id number] ALT [Catalytic activity/Vol] 10 U/L Normal 10-49 [facility] ([place]) Comment on above: Performed By: #### MAYTE Arshad #### [place] [id number] AST [Catalytic activity/Vol] 17 U/L Normal 8-34 [facility] ([place]) Comment on above: Performed By: #### MAYTE Arshad #### [place] [address] Bili Total 0.20 mg/dL Normal 0.20-1.20 [facility] ([place]) Comment on above: Result Comment: Use of this assay is not recommended for patients undergoing treatment with eltrombopag due to the potential for falsely elevated results. Performed By: #### U Joycelyn UAMIC #### [address] [address] BUN/Creatinine Ratio 12.3 ratio Normal 10.0-22.0 [facility] ([place]) Comment on above: Performed By: #### Cadence Hirsch UAMIC #### [address] [address] Calcium [Mass/Vol] 7.9 mg/dL Low 8.7-10.4 [facility] ([place]) Comment on above: Performed By: #### Cadence Hirsch UAMIC #### [address] [address] Chloride [Moles/Vol] 110 mmol/L Normal 98-110 [facility] ([place]) Comment on above: Performed By: #### Cadence Hirsch UAMIC #### [address] [address] CO2 [Moles/Vol] 26 mmol/L Normal 22-32 [facility] ([place]) Comment on above: Performed By: #### Cadence Hirsch UAMIC #### [address] [address] Creatinine [Mass/Vol] 0.57 mg/dL Normal 0.50-1.20 [facility] ([place]) Comment on above: Performed By: #### U Joycelyn UAMIC #### [address] [address] Electrolyte Balance 8.0 mEq/L Normal 4.0-15.0 [facility] ([place]) Comment on above: Performed By: #### U Joycelyn UAMIC #### [address] [address] Globulin 2.8 G/dL Normal 1.5-3.8 [facility] ([place]) Comment on above: Performed By: #### U Joycelyn UAMIC #### [address] [address] Glucose [Mass/Vol] 84 mg/dL Normal 70-110 [facility] ([place]) Comment on above: Performed By: #### U A UAMIC #### [address] [address] Potassium [Moles/Vol] 3.7 mmol/L Normal 3.5-5.0 [facility] ([place]) Comment on above: Performed By: #### U A, UAMIC #### [address] [address] Sodium [Moles/Vol] 144 mmol/L Normal 136-145 [facility] ([place]) Comment on above: Performed By: #### U Joycelyn UAMIC #### [address] [address] Total Protein 4.3 G/dL Low 5.7-8.2 [facility] ([place]) Comment on above: Result Comment: No te - New Reference Range in effect 19 Performed By: #### U A UAMIC #### [address] [address] Urea nitrogen [Mass/Vol] 7.0 mg/dL Low 8.0-22.0 [facility] ([place]) Comment on above: Performed By: #### U Joycelyn UAMIC #### [address] [address] LABORATORYOrdered By: SYSTEM SYSTEM on 07-16-2022 Albumin BCP dye [Mass/Vol] 1.5 G/dL Invalid Interpretation Code 3.2 - 4.8 G/dL ADM SS Albumin/Globulin [Mass ratio] 0.5 {ratio} Invalid Interpretation Code 0.9 - 1.6 ratio ADM SS ALP [Catalytic activity/Vol] 80 U/L Invalid Interpretation Code 38 - 126 U/L ADM SS ALT No additional P-5'-P [Catalytic activity/Vol] 10 U/L Invalid Interpretation Code 10 - 49 U/L ADM SS AST [Catalytic activity/Vol] 17 U/L Invalid Interpretation Code 8 - 34 U/L ADM SS Basophils (Bld) [#/Vol] 0.0 103/mcL Invalid Interpretation Code 0.0 - 0.3 10^3/mcL AH Workflow SS Basophils/100 WBC (Bld) 0.2 % Invalid Interpretation Code 0.0 - 2.5 % Workflow SS Bilirubin [Mass/Vol] 0.20 mg/dL Invalid Interpretation Code 0.20 - 1.20 mg/dL ADM SS Calcium [Mass/Vol] 7.9 mg/dL Invalid Interpretation Code 8.7 - 10.4 mg/dL ADM SS Chloride [Moles/Vol] 110 mmol/L Invalid Interpretation Code 98 - 110 mEq/L ADM SS CO2 [Moles/Vol] 26 mmol/L Invalid Interpretation Code 22 - 32 mEq/L ADM SS Creatinine [Mass/Vol] 0.57 mg/dL Invalid Interpretation Code 0.50 - 1.20 mg/dL ADM SS Electrolyte Balance 8.0 mEq/L Invalid Interpretation Code 4.0 - 15.0 mEq/L ADM SS Eosinophils (Bld) [#/Vol] 0.0 103/mcL Invalid Interpretation Code 0.0 - 0.7 10^3/mcL Workflow SS Eosinophils/100 WBC (Bld) 0.4 % Invalid Interpretation Code 0.0 - 6.0 % Workflow SS Erythrocyte distribution width (RBC) [Ratio] 13.1 % Invalid Interpretation Code 11.5 - 15.5 % Workflow SS GFR/1.73 sq M.predicted among blacks MDRD (S/P/Bld) [Vol rate/Area] ml/min/1.73sqm Invalid Interpretation Code ADM SS GFR/1.73 sq M.predicted among non-blacks MDRD (S/P/Bld) [Vol rate/Area] ml/min/1.73sqm Invalid Interpretation Code ADM SS Globulin 2.8 G/dL Invalid Interpretation Code 1.5 - 3.8 G/dL ADM SS Glucose [Mass/Vol] 84 mg/dL Invalid Interpretation Code 70 - 110 mg/dL ADM SS Hematocrit (Bld) [Volume fraction] 24.8 % Invalid Interpretation Code 34.0 - 46.0 % Workflow SS Hemoglobin (Bld) [Mass/Vol] 8.5 G/dL Invalid Interpretation Code 12.0 - 16.0 G/dL Workflow SS Lymphocytes (Bld) [#/Vol] 0.8 103/mcL Invalid Interpretation Code 0.9 - 4.3 10^3/mcL AH Workflow SS Lymphocytes/100 WBC (Bld) 6.8 % Invalid Interpretation Code 20.0 - 40.0 % AH Workflow SS MCH (RBC) [Entitic mass] 31.8 pg Invalid Interpretation Code 27.0 - 33.0 pg AH Workflow SS MCHC 34.3 G/dL Invalid Interpretation Code 32.0 - 36.0 G/dL AH Workflow SS MCV (RBC) [Entitic vol] 92.5 fL Invalid Interpretation Code 80.0 - 99.0 fL AH Workflow SS Monocytes (Bld) [#/Vol] 0.4 103/mcL Invalid Interpretation Code 0.1 - 1.4 10^3/mcL AH Workflow SS Monocytes/100 WBC (Bld) 3.6 % Invalid Interpretation Code 2.0 - 13.0 % AH Workflow SS Neutrophils (Bld) [#/Vol] 9.8 103/mcL Invalid Interpretation Code 2.3 - 8.1 10^3/mcL AH Workflow SS Neutrophils/100 WBC (Bld) 89.0 % Invalid Interpretation Code 50.0 - 75.0 % AH Workflow SS Platelet mean volume (Bld) [Entitic vol] 8.2 fL Invalid Interpretation Code 6.6 - 10.5 fL AH Workflow SS Platelets (Bld) [#/Vol] 192 103/mcL Invalid Interpretation Code 150 - 450 10^3/mcL AH Workflow SS Potassium [Moles/Vol] 3.7 mmol/L Invalid Interpretation Code 3.5 - 5.0 mEq/L AH ADM SS Protein [Mass/Vol] 4.3 G/dL Invalid Interpretation Code 5.7 - 8.2 G/dL AH ADM SS RBC (Bld) [#/Vol] 2.68 106/mcL Invalid Interpretation Code 4.10 - 5.30 10^6/mcL AH Workflow SS Sodium [Moles/Vol] 144 mmol/L Invalid Interpretation Code 136 - 145 mEq/L ADM SS Urea nitrogen [Mass/Vol] 7.0 mg/dL Invalid Interpretation Code 8.0 - 22.0 mg/dL AH ADM SS Urea nitrogen/Creatinine [Mass ratio] 12.3 ratio Invalid Interpretation Code 10.0 - 22.0 ratio AH ADM SS WBC (Bld) [#/Vol] 11.0 103/mcL Invalid Interpretation Code 4.5 - 10.8 10^3/mcL AH Workflow SS .Auto Diffon 07-15-2022 Basophil, Absolute 0.0 10 3/mcL Normal 0.0-0.3 [facility] ([place]) Comment on above: Performed By: #### L AC #### [address] [address] Basophils/100 WBC (Bld) 0.1 % Normal 0.0-2.5 A Counts include 234 beds at the [facility] ([place]) Comment on above: Performed By: #### L AC #### [address] [address] Eosinophil, Absolute 0.0 10 3/mcL Normal 0.0-0.7 [facility] ([place]) Comment on above: Performed By: #### L AC #### [address] [address] Eosinophils/100 WBC (Bld) 0.1 % Normal 0.0-6.0 [facility] ([place]) Comment on above: Performed By: #### L AC #### [address] [address] Lymphocyte, Absolute 0.6 10 3/mcL Low 0.9-4.3 [facility] ([place]) Comment on above: Performed By: #### L AC #### [address] [address] Lymphocytes/100 WBC (Bld) 2.9 % Low 20.0-40.0 [facility] ([place]) Comment on above: Performed By: #### L AC #### [address] [address] Monocyte, Absolute 1.0 10 3/mcL Normal 0.1-1.4 [facility] ([place]) Comment on above: Performed By: #### L AC #### [address] [address] Monocytes/100 WBC (Bld) 4.4 % Normal 2.0-13.0 A Counts include 234 beds at the [facility] ([place]) Comment on above: Performed By: #### L AC #### [address] [address] Neutrophils/100 WBC (Bld) 92.5 % High 50.0-75.0 [facility] ([place]) Comment on above: Performed By: #### L #### [address] [address] .GFRon 07-15-2022 GFR Non- >60 Normal [facility] ([place]) Comment on above: Result Comment: GFR Population mean for , Non- Americans Ages 20-29 = 116 mL/min/1.73 sq.m. Ages 30-39 = 107 mL/min/1.73 sq.m. Ages 40-49 = 99 mL/min/1.73 sq.m. Ages 50-59 = 93 mL/min/1.73 sq.m. Ages 60-69 = 85 mL/min/1.73 sq.m. Ages 70+ = 75 mL/min/1.73 sq.m. Chronic Kidney Disease: Less than 60 mL/min/1.73 square meters End Stage Renal Disease: Less than 15 mL/min/1.73 square meters Performed By: #### T ABHI #### [address] [address] GFR >60 Normal [facility] ([place]) Comment on above: Result Comment: GFR Population mean for , Non- Americans Ages 20-29 = 116 mL/min/1.73 sq.m. Ages 30-39 = 107 mL/min/1.73 sq.m. Ages 40-49 = 99 mL/min/1.73 sq.m. Ages 50-59 = 93 mL/min/1.73 sq.m. Ages 60-69 = 85 mL/min/1.73 sq.m. Ages 70+ = 75 mL/min/1.73 sq.m. Chronic Kidney Disease: Less than 60 mL/min/1.73 square meters End Stage Renal Disease: Less than 15 mL/min/1.73 square meters Performed By: #### T JARRED #### [address] [address] GFR Non- >60 Normal [facility] ([place]) Comment on above: Result Comment: GFR Population mean for , Non- Americans Ages 20-29 = 116 mL/min/1.73 sq.m. Ages 30-39 = 107 mL/min/1.73 sq.m. Ages 40-49 = 99 mL/min/1.73 sq.m. Ages 50-59 = 93 mL/min/1.73 sq.m. Ages 60-69 = 85 mL/min/1.73 sq.m. Ages 70+ = 75 mL/min/1.73 sq.m. Chronic Kidney Disease: Less than 60 mL/min/1.73 square meters End Stage Renal Disease: Less than 15 mL/min/1.73 square meters Performed By: #### MAYTE Arshad #### [place] [address] GFR >60 Normal [facility] ([place]) Comment on above: Result Comment: GFR Population mean for , Non- Americans Ages 20-29 = 116 mL/min/1.73 sq.m. Ages 30-39 = 107 mL/min/1.73 sq.m. Ages 40-49 = 99 mL/min/1.73 sq.m. Ages 50-59 = 93 mL/min/1.73 sq.m. Ages 60-69 = 85 mL/min/1.73 sq.m. Ages 70+ = 75 mL/min/1.73 sq.m. Chronic Kidney Disease: Less than 60 mL/min/1.73 square meters End Stage Renal Disease: Less than 15 mL/min/1.73 square meters Performed By: #### MAYTE Arshad #### [address] [address] .Manual Diffon 07-15-2022 Bands 1.0 % Normal 0.0-5.0 [facility] ([place]) Comment on above: Performed By: #### T ABHI #### [address] [address] Basophil %, Manual 0.0 % Normal 0.0-2.5 [facility] ([place]) Comment on above: Performed By: #### T ABHI #### [place] [id number] Basophil, Abs Manual 0.0 10 3/mcL Normal 0.0-0.3 [facility] ([place]) Comment on above: Performed By: #### T BAHI #### [address] [address] Eosinophil %, Manual 0.0 % Normal 0.0-6.0 [facility] ([place]) Comment on above: Performed By: #### T ROPANKUR #### [address] [address] Eosinophil, Abs Manual 0.0 10 3/mcL Normal 0.0-0.7 [facility] ([place]) Comment on above: Performed By: #### T ROPANKUR #### [address] [address] Lymphocyte %, Manual 5.0 % Low 20.0-40.0 [facility] ([place]) Comment on above: Performed By: #### T ROPANKUR #### [address] [address] Lymphocyte, Abs Manual 1.1 10 3/mcL Normal 0.9-4.3 [facility] ([place]) Comment on above: Performed By: #### T ROPANKUR #### [address] [address] Monocyte %, Manual 2.0 % Normal 2.0-13.0 [facility] ([place]) Comment on above: Performed By: #### T ROPANKUR #### [address] [address] Monocyte, Abs Manual 0.4 10 3/mcL Normal 0.1-1.4 [facility] ([place]) Comment on above: Performed By: #### T ROPAKNUR #### [address] [address] Neutrophil %, Manual 92.0 % High 50.0-75.0 [facility] ([place]) Comment on above: Performed By: #### T ROPHS #### [address] [address] Neutrophil, Abs Manual 20.2 10 3/mcL High 2.3-8.1 [facility] ([place]) Comment on above: Performed By: #### T ROPANKUR #### [address] [address] Nucleated RBC 0.0 /100 WBC Normal [facility] ([place]) Comment on above: Performed By: #### T ROPHS #### [address] [address] Bands 2.0 % Normal 0.0-5.0 [facility] ([place]) Comment on above: Performed By: #### U Joycelyn UAMIC #### [address] [address] Basophil %, Manual 0.0 % Normal 0.0-2.5 [facility] ([place]) Comment on above: Performed By: #### U A UAMIC #### [address] [address] Basophil, Abs Manual 0.0 10 3/mcL Normal 0.0-0.3 [facility] ([place]) Comment on above: Performed By: #### Cadence Hirsch UAMIC #### [address] [address] Eosinophil %, Manual 0.0 % Normal 0.0-6.0 [facility] ([place]) Comment on above: Performed By: #### Cadence Hirsch UAMIC #### [address] [address] Eosinophil, Abs Manual 0.0 10 3/mcL Normal 0.0-0.7 [facility] ([place]) Comment on above: Performed By: #### Cadence Hirsch UAMIC #### [address] [address] Lymphocyte %, Manual 3.0 % Low 20.0-40.0 [facility] ([place]) Comment on above: Performed By: #### U Joycelyn UAMIC #### [address] [address] Lymphocyte, Abs Manual 0.7 10 3/mcL Low 0.9-4.3 [facility] ([place]) Comment on above: Performed By: #### U A, UAMIC #### [address] [address] Monocyte %, Manual 3.0 % Normal 2.0-13.0 [facility] ([place]) Comment on above: Performed By: #### Cadence Hirsch UAMIC #### [address] [address] Monocyte, Abs Manual 0.7 10 3/mcL Normal 0.1-1.4 [facility] ([place]) Comment on above: Performed By: #### MAYTE Arshad #### [place] [address] Neutrophil %, Manual 92.0 % High 50.0-75.0 [facility] ([place]) Comment on above: Performed By: #### WILBER ArshadMIC #### [place] [address] Neutrophil, Abs Manual 20.9 10 3/mcL High 2.3-8.1 [facility] ([place]) Comment on above: Performed By: #### MAYTE Arshad #### [place] [address] Nucleated RBC 0.0 /100 WBC Normal [facility] ([place]) Comment on above: Performed By: #### MAYTE Arshad #### [place] [address] .Morphon 07-15-2022 Platelet Estimate Normal Normal [facility] ([place]) Comment on above: Performed By: #### T ABHI #### [place] [address] RBC morphology finding Nom (Bld) See Below Normal [facility] ([place]) Comment on above: Result Comment: RBC Morphology appears Normal Performed By: #### T ABHI #### [place] [address] Platelet Clumps Few Normal [facility] ([place]) Comment on above: Performed By: #### MAYTE Arshad #### [place] [address] Poik 1+ Normal [facility] ([place]) Comment on above: Performed By: #### MAYTE Arshad #### [place] [address] Tear Cell 1+ Normal [facility] ([place]) Comment on above: Performed By: #### MAYTE Arshad #### [place] [address] Platelet Estimate Normal Normal [facility] ([place]) Comment on above: Performed By: #### U A, UAMIC #### [place] [address] Platelet Estimate Normal Normal [facility] ([place]) Comment on above: Performed By: #### L AC #### [place] [address] RBC morphology finding Nom (Bld) Normal [facility] ([place]) Comment on above: Result Comment: See Below RBC Morphology appears Normal See Below RBC Morphology appears Normal Performed By: #### L AC #### [place] [address] .NEUABSon 07-15-2022 Neutrophil, Absolute 20.0 10 3/mcL High 2.3-8.1 A Counts include 234 beds at the [facility] ([place] Comment on above: Performed By: #### L AC #### [place] [address] CBCon 07-15-2022 Erythrocyte distribution width (RBC) [Ratio] 13.2 % Normal 11.5-15.5 [facility] ([place]) Comment on above: Performed By: #### G FR, CMP, DIFF, CBC, MORPH #### [place] [address] Hematocrit (Bld) [Volume fraction] 26.5 % Low 34.0-46.0 [facility] ([place]) Comment on above: Performed By: #### G FR, CMP, DIFF, CBC, MORPH #### [place] [address] Hgb 9.0 G/dL Low 12.0-16.0 [facility] ([place]) Comment on above: Performed By: #### G FR, CMP, DIFF, CBC, MORPH #### [place] [address] MCH (RBC) [Entitic mass] 31.3 pg Normal 27.0-33.0 [facility] ([place]) Comment on above: Performed By: #### G FR, CMP, DIFF, CBC, MORPH #### [place] [address] MCHC 33.8 G/dL Normal 32.0-36.0 [facility] ([place]) Comment on above: Performed By: #### G FR, CMP, DIFF, CBC, MORPH #### [place] [id number] MCV (RBC) [Entitic vol] 92.8 fL Normal 80.0-99.0 A Counts include 234 beds at the [facility] ([place] Comment on above: Performed By: #### G FR, CMP, DIFF, CBC, MORPH #### [place] [address] Platelet 211 10 3/mcL Normal 150-450 [facility] ([place]) Comment on above: Performed By: #### G FR, CMP, DIFF, CBC, MORPH #### [place] [address] Platelet mean volume (Bld) [Entitic vol] 7.9 fL Normal 6.6-10.5 [facility] ([place]) Comment on above: Performed By: #### G FR, CMP, DIFF, CBC, MORPH #### [place] [address] RBC 2.86 10 6/mcL Low 4.10-5.30 [facility] ([place]) Comment on above: Performed By: #### G FR, CMP, DIFF, CBC, MORPH #### [place] [id number] WBC 21.9 10 3/mcL High 4.5-10.8 [facility] ([place]) Comment on above: Performed By: #### G FR, CMP, DIFF, CBC, MORPH #### [place] [address] Erythrocyte distribution width (RBC) [Ratio] 13.6 % Normal 11.5-15.5 [facility] ([place]) Comment on above: Performed By: #### U A UAMIC #### [place] [id number] Hematocrit (Bld) [Volume fraction] 29.7 % Low 34.0-46.0 [facility] ([place]) Comment on above: Performed By: #### Cadence Hirsch UAMIC #### [address] [address] Hgb 10.1 G/dL Low 12.0-16.0 [facility] ([place]) Comment on above: Performed By: #### Cadence Hirsch UAMIC #### [address] [address] MCH (RBC) [Entitic mass] 31.5 pg Normal 27.0-33.0 [facility] ([place]) Comment on above: Performed By: #### Cadence Hirsch UAMIC #### [address] [address] MCHC 34.1 G/dL Normal 32.0-36.0 [facility] ([place]) Comment on above: Performed By: #### Cadence Hirsch UAMIC #### [place] [id number] MCV (RBC) [Entitic vol] 92.6 fL Normal 80.0-99.0 A Counts include 234 beds at the [facility] ([place] Comment on above: Performed By: #### Cadence Hirsch UAMIC #### [address] [address] Platelet 223 10 3/mcL Normal 150-450 [facility] ([place]) Comment on above: Performed By: #### Cadence Hirsch UAMIC #### [address] [address] Platelet mean volume (Bld) [Entitic vol] 8.3 fL Normal 6.6-10.5 [facility] ([place]) Comment on above: Performed By: #### Cadence Hirsch UAMIC #### [address] [address] RBC 3.21 10 6/mcL Low 4.10-5.30 [facility] ([place]) Comment on above: Performed By: #### Cadence Hirsch UAMIC #### [address] [address] WBC 22.7 10 3/mcL High 4.5-10.8 [facility] ([place]) Comment on above: Performed By: #### WILBER ArshadMIC #### [address] [address] Erythrocyte distribution width (RBC) [Ratio] 13.4 % Normal 11.5-15.5 [facility] ([place] Comment on above: Performed By: #### L AC #### [place] [address] Hematocrit (Bld) [Volume fraction] 28.2 % Low 34.0-46.0 [facility] ([place]) Comment on above: Performed By: #### L AC #### [place] [address] Hgb 9.6 G/dL Low 12.0-16.0 [facility] ([place]) Comment on above: Performed By: #### L AC #### [place] [address] MCH (RBC) [Entitic mass] 31.9 pg Normal 27.0-33.0 [facility] ([place]) Comment on above: Performed By: #### L AC #### [place] [address] MCHC 34.1 G/dL Normal 32.0-36.0 [facility] ([place] Comment on above: Performed By: #### L AC #### [place] [id number] MCV (RBC) [Entitic vol] 93.6 fL Normal 80.0-99.0 A Counts include 234 beds at the [facility] ([place] Comment on above: Performed By: #### L AC #### [place] [id number] Platelet 196 10 3/mcL Normal 150-450 [facility] ([place] Comment on above: Performed By: #### L AC #### [place] [id number] Platelet mean volume (Bld) [Entitic vol] 8.3 fL Normal 6.6-10.5 [facility] [facility] ([place]) Comment on above: Performed By: #### L AC #### [place] [id number] RBC 3.02 10 6/mcL Low 4.10-5.30 [facility] ([place]) Comment on above: Performed By: #### L AC #### [address] [address] WBC 21.6 10 3/mcL High 4.5-10.8 [facility] ([place]) Comment on above: Performed By: #### L AC #### [address] [address] CMPon 07-15-2022 Albumin Level 1.8 G/dL Low 3.2-4.8 [facility] ([place]) Comment on above: Performed By: #### G FR, CMP, DIFF, CBC, MORPH #### [address] [address] Albumin/Globulin [Mass ratio] 0.6 {ratio} Low 0.9-1.6 [facility] ([place]) Comment on above: Performed By: #### G FR, CMP, DIFF, CBC, MORPH #### [place] [address] ALP [Catalytic activity/Vol] 90 U/L Normal 38-126 [facility] ([place]) Comment on above: Performed By: #### G FR, CMP, DIFF, CBC, MORPH #### [place] [address] ALT [Catalytic activity/Vol] 13 U/L Normal 10-49 [facility] ([place]) Comment on above: Performed By: #### G FR, CMP, DIFF, CBC, MORPH #### [place] [id number] AST [Catalytic activity/Vol] 19 U/L Normal 8-34 [facility] ([place] Comment on above: Performed By: #### G FR, CMP, DIFF, CBC, MORPH #### [place] [id number] Bili Total 0.30 mg/dL Normal 0.20-1.20 [facility] ([place]) Comment on above: Result Comment: Use of this assay is not recommended for patients undergoing treatment with eltrombopag due to the potential for falsely elevated results. Performed By: #### G FR, CMP, DIFF, CBC, MORPH #### [address] [address] BUN/Creatinine Ratio 14.3 ratio Normal 10.0-22.0 [facility] ([place]) Comment on above: Performed By: #### G FR, CMP, DIFF, CBC, MORPH #### [address] [address] Calcium [Mass/Vol] 8.0 mg/dL Low 8.7-10.4 [facility] ([place]) Comment on above: Performed By: #### G FR, CMP, DIFF, CBC, MORPH #### [address] [address] Chloride [Moles/Vol] 105 mmol/L Normal 98-110 [facility] ([place]) Comment on above: Performed By: #### G FR, CMP, DIFF, CBC, MORPH #### [place] [id number] CO2 [Moles/Vol] 23 mmol/L Normal 22-32 [facility] ([place] Comment on above: Performed By: #### G FR, CMP, DIFF, CBC, MORPH #### [address] [address] Creatinine [Mass/Vol] 0.63 mg/dL Normal 0.50-1.20 [facility] ([place]) Comment on above: Performed By: #### G FR, CMP, DIFF, CBC, MORPH #### [address] [address] Electrolyte Balance 9.0 mEq/L Normal 4.0-15.0 [facility] ([place]) Comment on above: Performed By: #### G FR, CMP, DIFF, CBC, MORPH #### [address] [address] Globulin 3.1 G/dL Normal 1.5-3.8 [facility] ([place] Comment on above: Performed By: #### G FR, CMP, DIFF, CBC, MORPH #### [address] [address] Glucose [Mass/Vol] 103 mg/dL Normal 70-110 [facility] ([place]) Comment on above: Performed By: #### G FR, CMP, DIFF, CBC, MORPH #### [address] [address] Potassium [Moles/Vol] 3.5 mmol/L Normal 3.5-5.0 [facility] ([place] Comment on above: Performed By: #### G FR, CMP, DIFF, CBC, MORPH #### [address] [address] Sodium [Moles/Vol] 137 mmol/L Normal 136-145 [facility] ([place]) Comment on above: Performed By: #### G FR, CMP, DIFF, CBC, MORPH #### [address] [address] Total Protein 4.9 G/dL Low 5.7-8.2 [facility] ([place]) Comment on above: Result Comment: No te - New Reference Range in effect 19 Performed By: #### G FR, CMP, DIFF, CBC, MORPH #### [address] [address] Urea nitrogen [Mass/Vol] 9.0 mg/dL Normal 8.0-22.0 [facility] ([place] Comment on above: Performed By: #### G FR, CMP, DIFF, CBC, MORPH #### [address] [address] Albumin Level 2.1 G/dL Low 3.2-4.8 [facility] ([place] Comment on above: Performed By: #### Cadence Hirsch UAMIC #### [address] [address] Albumin/Globulin [Mass ratio] 0.6 {ratio} Low 0.9-1.6 [facility] ([place] Comment on above: Performed By: #### Cadence Hirsch UAMIC #### [address] [address] ALP [Catalytic activity/Vol] 100 U/L Normal 38-126 [facility] ([place] Comment on above: Performed By: #### Cadence Hirsch UAMIC #### [address] [address] ALT [Catalytic activity/Vol] 17 U/L Normal 10-49 [facility] ([place] Comment on above: Performed By: #### U A UAMIC #### [address] [address] AST [Catalytic activity/Vol] 33 U/L Normal 8-34 [facility] ([place] Comment on above: Performed By: #### U A, UAMIC #### [address] [address] Bili Total 0.30 mg/dL Normal 0.20-1.20 [facility] ([place]) Comment on above: Result Comment: Use of this assay is not recommended for patients undergoing treatment with eltrombopag due to the potential for falsely elevated results. Performed By: #### U A UAMIC #### [address] [address] BUN/Creatinine Ratio 16.7 ratio Normal 10.0-22.0 [facility] ([place]) Comment on above: Performed By: #### U A UAMIC #### [address] [address] Calcium [Mass/Vol] 8.6 mg/dL Low 8.7-10.4 [facility] ([place]) Comment on above: Performed By: #### U A UAMIC #### [address] [address] Chloride [Moles/Vol] 103 mmol/L Normal 98-110 [facility] ([place]) Comment on above: Performed By: #### U A, UAMIC #### [address] [address] CO2 [Moles/Vol] 24 mmol/L Normal 22-32 [facility] ([place] Comment on above: Performed By: #### U A, UAMIC #### [address] [address] Creatinine [Mass/Vol] 0.66 mg/dL Normal 0.50-1.20 [facility] ([place] Comment on above: Performed By: #### U A, UAMIC #### [address] [address] Electrolyte Balance 10.0 mEq/L Normal 4.0-15.0 [facility] ([place] Comment on above: Performed By: #### U A UAMIC #### [address] [address] Globulin 3.4 G/dL Normal 1.5-3.8 [facility] ([place] Comment on above: Performed By: #### U A, UAMIC #### [address] [address] Glucose [Mass/Vol] 90 mg/dL Normal 70-110 [facility] ([place]) Comment on above: Performed By: #### U Joycelyn UAMIC #### [address] [address] Potassium [Moles/Vol] 3.8 mmol/L Normal 3.5-5.0 [facility] ([place] Comment on above: Result Comment: Spec imen slightly hemolyzed. Performed By: #### U A UAMIC #### [address] [address] Sodium [Moles/Vol] 137 mmol/L Normal 136-145 [facility] ([place]) Comment on above: Performed By: #### U Joycelyn UAMIC #### [address] [address] Total Protein 5.5 G/dL Low 5.7-8.2 [facility] ([place]) Comment on above: Result Comment: No te - New Reference Range in effect 19 Performed By: #### U A UAMIC #### [address] [address] Urea nitrogen [Mass/Vol] 11.0 mg/dL Normal 8.0-22.0 [facility] ([place] Comment on above: Performed By: #### U A UAMIC #### [address] [address] [address] ANGIOGRAPHY CHEST W/CONTR Joon 07-15-2022 CT ANGIOGRAPHY CHEST W/CONTRAST ORIGINAL EXAMINATION: CTA OF THE CHEST 07/15/2022 12:35 pm TECHNIQUE: CTA of the chest was performed after the administration of intravenous contrast. Multiplanar reformatted images are provided for review. MIP images are provided for review. Automated exposure control, iterative reconstruction, and/or weight based adjustment of the mA/kV was utilized to reduce the radiation dose to as low as reasonably achievable. COMPARISON: None. HISTORY: ORDERING SYSTEM PROVIDED HISTORY: Reason for Exam: S/P C SECTION 07/14/22,RAPID HR,SOB,CHILLS tachycardia, postop FINDINGS: Pulmonary Arteries: Opacification of the pulmonary arteries is limited secondary to altered physiology from status. Exam is also limited due to bolus timing. Repeat was attempted with only minimal improvement. Within these limitations no large central pulmonary embolism is appreciated. The pulmonary artery is dilated consistent with increased volume from . There is somewhat heterogenous enhancement of left lower lobar pulmonary arteries. This is likely from streak artifact/bolus timing however underlying pulmonary embolism cannot be fully excluded. Mediastinum: The heart is mildly enlarged secondary to altered physiology. RV to LV ratio is maintained less than 1. No regurgitation of contrast to the IVC/hepatic veins to suggest right heart dysfunction. No evidence of mediastinal lymphadenopathy. The heart and pericardium demonstrate no acute abnormality. There is no acute abnormality of the thoracic aorta. Lungs/pleura: The lungs demonstrate bibasilar dependent atelectasis and are otherwise clear. No focal consolidation or pulmonary edema. No evidence of pleural effusion or pneumothorax. Upper Abdomen: Limited images of the upper abdomen are unremarkable. Soft Tissues/Bones: No acute bone or soft tissue abnormality. IMPRESSION: Limited exam secondary to altered physiology and bolus timing. Within limitations no large central pulmonary embolism is appreciated. Slightly heterogenous appearance of the left lower lobar pulmonary arteries likely artifactual. If clinical symptoms persist and there is continued concern a V/Q scan may be of benefit. Bibasilar dependent atelectasis. No evidence of right heart strain. Interpreted by: Thor Mckee MD Preliminary Report By: Thor Mckee MD Electronically signed By Thor Mckee MD Dictated Date: 07/15/2022 12:52:16 PM Prelim Date: 07/15/2022 12:59:44 PM Sign Date: 07/15/2022 12:59:44 PM Ordering Provider: ANGELES MARTINEZ [facility] ([place]) Final Surgical Pathology Rep qiana 07-15-2022 Final Surgical Pathology Report . Pathology Reports Accession: Collected Date/Time: Received Date/Time: Pathologist: [id number] 07/14/2022 03:49 EDT 07/14/2022 07:54 EDT MD MORENO WILDER Final Surgical Pathology Report DIAGNOSIS: PLACENTA: - INTACT MONTEZ PLACENTA WITH ACUTE CHORIOAMNIONITIS AND ACUTE FUNISITIS AND RARE PIGMENTED HISTIOCYTES IN THE MEMBRANES SUGGESTIVE OF MECONIUM STAINING CLINICAL INFORMATION: PRIMARY SECTION; 39/3 WEEK PLACENTA VIABLE FEMALE Procedure: PRIMARY SECTION; 39/3 WEEK PLACENTA VIABLE FEMALE Preoperative diagnosis: 39/3 WEEK PLACENTA; PRIMARY SECTION FOR FAILURE OF DECENT Postoperative diagnosis: 39/3 WEEK PLACENTA; PRIMARY SECTION FOR FAILURE OF DECENT SPECIMEN: A PLACENTA GROSS DESCRIPTION: A. Received in formalin, labeled with the patients name, Case #[id number], and placenta is a montez placenta weighing 570 g and measuring partially torn measuring 19.5 x 18 x 3 cm. The 3 vessel umbilical cord inserts 4.5 cm to the nearest placental margin, measures 39 cm long, and 1 -1.3 cm diameter. Extraplacental membranes are story -purple, opaque and inserting at the placental margin. The surface is purple-blue, focal areas of green staining with arborizing vasculature. The maternal surface is red-brown with grossly intact lobulation with focal white specks. On cut section the disc is red-brown, soft and spongy with no areas of hemorrhage or lesion. Compounding Assistant sections in 3 cassettes. Dictated by KESHAV RHOADES MICROSCOPIC DESCRIPTION: The microscopic examination is performed, except in the case of Gross Only. Electronically Signed by Pathology Report verified by [facility] MORENO WILDER MD Sign out Date: 07/15/2022 16:21 Performing Lab: [facility], [address] [place] [address] [place] [facility]ology Dept Disclaimer If ancillary studies were utilized, the following Laboratory Developed Test (LDT) disclaimer will apply: Under CLIA requirements, [facility] is qualified to perform high complexity testing. For all ancillary stains, positive and negative controls stain appropriately. Performance characteristics of immunohistochemical and chromogenic in-situ hybridization tests have been determined by [facility]. These tests are used for clinical purposes, They should not be regarded as investigational or for research. Normal [facility] ([place]) LABORATORYOrdered By: Jordin Valente on 07-15-2022 Lactate [Moles/Vol] 1.8 mmol/L Invalid Interpretation Code 0.2 - 2.0 mmol/L Auto Chem SS LABORATORYOrdered By: Brook Valenzuela on 07-15-2022 Natriuretic peptide.B prohormone N-Terminal [Mass/Vol] 194 pg/mL Invalid Interpretation Code 0 - 450 pg/mL Auto Chem SS LABORATORYOrdered By: [employer] on 07-15-2022 Troponin I.cardiac DL <= 0.01 ng/mL [Mass/Vol] 14.91 ng/L Invalid Interpretation Code 0.00 - 34.00 ng/L ADM SS Albumin BCP dye [Mass/Vol] 1.8 G/dL Invalid Interpretation Code 3.2 - 4.8 G/dL ADM SS Albumin/Globulin [Mass ratio] 0.6 {ratio} Invalid Interpretation Code 0.9 - 1.6 ratio ADM SS ALP [Catalytic activity/Vol] 90 U/L Invalid Interpretation Code 38 - 126 U/L ADM SS ALT No additional P-5'-P [Catalytic activity/Vol] 13 U/L Invalid Interpretation Code 10 - 49 U/L ADM SS AST [Catalytic activity/Vol] 19 U/L Invalid Interpretation Code 8 - 34 U/L ADM SS Band form neutrophils/100 WBC (Bld) 1.0 % Invalid Interpretation Code 0.0 - 5.0 % Workflow SS Basophils (Bld) [#/Vol] 0.0 103/mcL Invalid Interpretation Code 0.0 - 0.3 10^3/mcL Workflow SS Basophils/100 WBC (Bld) 0.0 % Invalid Interpretation Code 0.0 - 2.5 % Workflow SS Bilirubin [Mass/Vol] 0.30 mg/dL Invalid Interpretation Code 0.20 - 1.20 mg/dL ADM SS Calcium [Mass/Vol] 8.0 mg/dL Invalid Interpretation Code 8.7 - 10.4 mg/dL ADM SS Chloride [Moles/Vol] 105 mmol/L Invalid Interpretation Code 98 - 110 mEq/L ADM SS CO2 [Moles/Vol] 23 mmol/L Invalid Interpretation Code 22 - 32 mEq/L ADM SS Creatinine [Mass/Vol] 0.63 mg/dL Invalid Interpretation Code 0.50 - 1.20 mg/dL ADM SS Electrolyte Balance 9.0 mEq/L Invalid Interpretation Code 4.0 - 15.0 mEq/L ADM SS Eosinophils (Bld) [#/Vol] 0.0 103/mcL Invalid Interpretation Code 0.0 - 0.7 10^3/mcL AH Workflow SS Eosinophils/100 WBC (Bld) 0.0 % Invalid Interpretation Code 0.0 - 6.0 % Workflow SS Erythrocyte distribution width (RBC) [Ratio] 13.2 % Invalid Interpretation Code 11.5 - 15.5 % Workflow SS GFR/1.73 sq M.predicted among blacks MDRD (S/P/Bld) [Vol rate/Area] ml/min/1.73sqm Invalid Interpretation Code Chemistry S GFR/1.73 sq M.predicted among non-blacks MDRD (S/P/Bld) [Vol rate/Area] ml/min/1.73sqm Invalid Interpretation Code Chemistry S Globulin 3.1 G/dL Invalid Interpretation Code 1.5 - 3.8 G/dL ADM SS Glucose [Mass/Vol] 103 mg/dL Invalid Interpretation Code 70 - 110 mg/dL ADM SS Hematocrit (Bld) [Volume fraction] 26.5 % Invalid Interpretation Code 34.0 - 46.0 % Workflow SS Hemoglobin (Bld) [Mass/Vol] 9.0 G/dL Invalid Interpretation Code 12.0 - 16.0 G/dL Workflow SS Lymphocytes (Bld) [#/Vol] 1.1 103/mcL Invalid Interpretation Code 0.9 - 4.3 10^3/mcL Workflow SS Lymphocytes/100 WBC (Bld) 5.0 % Invalid Interpretation Code 20.0 - 40.0 % Workflow SS MCH (RBC) [Entitic mass] 31.3 pg Invalid Interpretation Code 27.0 - 33.0 pg Workflow SS MCHC 33.8 G/dL Invalid Interpretation Code 32.0 - 36.0 G/dL Workflow SS MCV (RBC) [Entitic vol] 92.8 fL Invalid Interpretation Code 80.0 - 99.0 fL Workflow SS Monocytes (Bld) [#/Vol] 0.4 103/mcL Invalid Interpretation Code 0.1 - 1.4 10^3/mcL AH Workflow SS Monocytes/100 WBC (Bld) 2.0 % Invalid Interpretation Code 2.0 - 13.0 % AH Workflow SS Neutrophils (Bld) [#/Vol] 20.2 103/mcL Invalid Interpretation Code 2.3 - 8.1 10^3/mcL AH Workflow SS Neutrophils/100 WBC (Bld) 92.0 % Invalid Interpretation Code 50.0 - 75.0 % Workflow SS Nucleated RBC 0.0 /100 WBC Invalid Interpretation Code Workflow SS Platelet mean volume (Bld) [Entitic vol] 7.9 fL Invalid Interpretation Code 6.6 - 10.5 fL Workflow SS Platelets (Bld) [#/Vol] 211 103/mcL Invalid Interpretation Code 150 - 450 10^3/mcL Workflow SS Platelets LM Ql (Bld) Normal *NA* (07/15/22 1:26 PM) Invalid Interpretation Code Workflow SS Potassium [Moles/Vol] 3.5 mmol/L Invalid Interpretation Code 3.5 - 5.0 mEq/L ADM SS Protein [Mass/Vol] 4.9 G/dL Invalid Interpretation Code 5.7 - 8.2 G/dL AH ADM SS RBC (Bld) [#/Vol] 2.86 106/mcL Invalid Interpretation Code 4.10 - 5.30 10^6/mcL Workflow SS RBC morphology finding Nom (Bld) See Below 2 *NA* (07/15/22 1:26 PM) Invalid Interpretation Code Workflow SS Comment on above: Result Comment: RBC Morphology appears Normal Sodium [Moles/Vol] 137 mmol/L Invalid Interpretation Code 136 - 145 mEq/L ADM SS Urea nitrogen [Mass/Vol] 9.0 mg/dL Invalid Interpretation Code 8.0 - 22.0 mg/dL AH ADM SS Urea nitrogen/Creatinine [Mass ratio] 14.3 ratio Invalid Interpretation Code 10.0 - 22.0 ratio AH ADM SS WBC (Bld) [#/Vol] 21.9 103/mcL Invalid Interpretation Code 4.5 - 10.8 10^3/mcL AH Workflow SS Albumin BCP dye [Mass/Vol] 2.1 G/dL Invalid Interpretation Code 3.2 - 4.8 G/dL ADM SS Albumin/Globulin [Mass ratio] 0.6 {ratio} Invalid Interpretation Code 0.9 - 1.6 ratio AH ADM SS ALP [Catalytic activity/Vol] 100 U/L Invalid Interpretation Code 38 - 126 U/L ADM SS ALT No additional P-5'-P [Catalytic activity/Vol] 17 U/L Invalid Interpretation Code 10 - 49 U/L AH ADM SS AST [Catalytic activity/Vol] 33 U/L Invalid Interpretation Code 8 - 34 U/L ADM SS Band form neutrophils/100 WBC (Bld) 2.0 % Invalid Interpretation Code 0.0 - 5.0 % AH Workflow SS Basophils (Bld) [#/Vol] 0.0 103/mcL Invalid Interpretation Code 0.0 - 0.3 10^3/mcL AH Workflow SS Basophils/100 WBC (Bld) 0.0 % Invalid Interpretation Code 0.0 - 2.5 % AH Workflow SS Bilirubin [Mass/Vol] 0.30 mg/dL Invalid Interpretation Code 0.20 - 1.20 mg/dL ADM SS Eosinophils (Bld) [#/Vol] 0.0 103/mcL Invalid Interpretation Code 0.0 - 0.7 10^3/mcL AH Workflow SS Eosinophils/100 WBC (Bld) 0.0 % Invalid Interpretation Code 0.0 - 6.0 % AH Workflow SS Globulin 3.4 G/dL Invalid Interpretation Code 1.5 - 3.8 G/dL ADM SS Lymphocytes (Bld) [#/Vol] 0.7 103/mcL Invalid Interpretation Code 0.9 - 4.3 10^3/mcL AH Workflow SS Lymphocytes/100 WBC (Bld) 3.0 % Invalid Interpretation Code 20.0 - 40.0 % AH Workflow SS Monocytes (Bld) [#/Vol] 0.7 103/mcL Invalid Interpretation Code 0.1 - 1.4 10^3/mcL AH Workflow SS Monocytes/100 WBC (Bld) 3.0 % Invalid Interpretation Code 2.0 - 13.0 % AH Workflow SS Neutrophils (Bld) [#/Vol] 20.9 103/mcL Invalid Interpretation Code 2.3 - 8.1 10^3/mcL AH Workflow SS Neutrophils/100 WBC (Bld) 92.0 % Invalid Interpretation Code 50.0 - 75.0 % AH Workflow SS Nucleated RBC 0.0 /100 WBC Invalid Interpretation Code AH Workflow SS Platelet Clumps Few *NA* (07/15/22 8:21 AM) Invalid Interpretation Code AH Workflow SS Platelets LM Ql (Bld) Normal *NA* (07/15/22 8:21 AM) Invalid Interpretation Code AH Workflow SS Poikilocytosis LM Ql (Bld) 1+ *NA* (07/15/22 8:21 AM) Invalid Interpretation Code AH Workflow SS Protein [Mass/Vol] 5.5 G/dL Invalid Interpretation Code 5.7 - 8.2 G/dL AH ADM SS Tear Cell 1+ *NA* (07/15/22 8:21 AM) Invalid Interpretation Code AH Workflow SS Basophils (Bld) [#/Vol] 0.0 103/mcL Invalid Interpretation Code 0.0 - 0.3 10^3/mcL AH Workflow SS Basophils/100 WBC (Bld) 0.1 % Invalid Interpretation Code 0.0 - 2.5 % AH Workflow SS Eosinophils (Bld) [#/Vol] 0.0 103/mcL Invalid Interpretation Code 0.0 - 0.7 10^3/mcL AH Workflow SS Eosinophils/100 WBC (Bld) 0.1 % Invalid Interpretation Code 0.0 - 6.0 % AH Workflow SS Lymphocytes (Bld) [#/Vol] 0.6 103/mcL Invalid Interpretation Code 0.9 - 4.3 10^3/mcL AH Workflow SS Lymphocytes/100 WBC (Bld) 2.9 % Invalid Interpretation Code 20.0 - 40.0 % AH Workflow SS Monocytes (Bld) [#/Vol] 1.0 103/mcL Invalid Interpretation Code 0.1 - 1.4 10^3/mcL AH Workflow SS Monocytes/100 WBC (Bld) 4.4 % Invalid Interpretation Code 2.0 - 13.0 % AH Workflow SS Neutrophils (Bld) [#/Vol] 20.0 103/mcL Invalid Interpretation Code 2.3 - 8.1 10^3/mcL AH Workflow SS Neutrophils/100 WBC (Bld) 92.5 % Invalid Interpretation Code 50.0 - 75.0 % AH Workflow SS RBC morphology finding Nom (Bld) See Below 3 *NA* (07/15/22 4:34 AM) Invalid Interpretation Code AH Workflow SS Comment on above: Result Comment: RBC Morphology appears Normal RBC morphology finding Nom (Bld) See Below 4 *NA* (07/15/22 4:34 AM) Invalid Interpretation Code AH Workflow SS Comment on above: Result Comment: RBC Morphology appears Normal LABORATORYOrdered By: Daisy Wells on 07-15-2022 Lactate [Moles/Vol] 2.3 mmol/L Invalid Interpretation Code 0.2 - 2.0 mmol/L AH Auto Chem SS LABORATORYOrdered By: Tyrel Mayfield on 07-15-2022 Appearance (U) Clear (07/15/22 9:44 AM) Invalid Interpretation Code Clear AH Auto Urine SS Bacteria LM.HPF (Urine sed) [#/Area] Trace /HPF Invalid Interpretation Code Negative/HPF AH Auto Urine SS Bilirubin Ql (U) Negative (07/15/22 9:44 AM) Invalid Interpretation Code Neg-Trace AH Auto Urine SS Color (U) Yellow (07/15/22 9:44 AM) Invalid Interpretation Code AH Auto Urine SS Glucose Test strip (U) [Mass/Vol] Negative Invalid Interpretation Code Negativemg/dL AH Auto Urine SS Hemoglobin Auto test strip (U) [Mass/Vol] Large *ABN* (07/15/22 9:44 AM) Invalid Interpretation Code Neg-Trace AH Auto Urine SS Ketones Ql (U) Negative Invalid Interpretation Code Neg-Tracemg/d L AH Auto Urine SS UA Ghost cells 0-2 /HPF Invalid Interpretation Code AH Auto Urine SS UA Glitter cells 0-2 /HPF Invalid Interpretation Code AH Auto Urine SS UA Leuk Est Small *ABN* (07/15/22 9:44 AM) Invalid Interpretation Code Negative AH Auto Urine SS UA Nitrite Negative (07/15/22 9:44 AM) Invalid Interpretation Code Negative AH Auto Urine SS UA pH 5.5 (07/15/22 9:44 AM) Invalid Interpretation Code 5.0 - 8.0 AH Auto Urine SS UA Protein Trace mg/dL Invalid Interpretation Code Negativemg/dL AH Auto Urine SS UA RBC 5-10 /HPF Invalid Interpretation Code 0-2/HPF AH Auto Urine SS UA Spec Grav 1.010 (07/15/22 9:44 AM) Invalid Interpretation Code 1.006-1.029 AH Auto Urine SS UA Specimen Type Clean Catch (07/15/22 9:44 AM) Invalid Interpretation Code AH Auto Urine SS UA Squam Epithelial 0-2 /HPF Invalid Interpretation Code 0-20/HPF AH Auto Urine SS UA Transitional Epithelial 0-2 /HPF Invalid Interpretation Code AH Auto Urine SS UA Urobilinogen 0.2 E.U./dL Invalid Interpretation Code 0.2-1.0E.U./d L AH Auto Urine SS WBC LM.HPF (Urine sed) [#/Area] 3-5 /HPF Invalid Interpretation Code 0-5/HPF Auto Urine SS LABORATORYOrdered By: Gopal Triana on 07-15-2022 Lactate [Moles/Vol] 1.0 mmol/L Invalid Interpretation Code 0.2 - 2.0 mmol/L Auto Chem SS LACon 07-15-2022 Lactic Acid Lvl 1.8 mmol/L Normal 0.2-2.0 [facility] ([place]) Comment on above: Order Comment: Order ed secondary to Lactic Acid result greater than or equal to 2.0 Performed By: #### U A, UAMIC #### [place] [address] Lactic Acid Lvl 2.3 mmol/L High 0.2-2.0 [facility] ([place]) Comment on above: Performed By: #### L AC #### [place] [address] Lactic Acid Lvl 1.0 mmol/L Normal 0.2-2.0 [facility] ([place]) Comment on above: Order Comment: clott ed talk to debra Performed By: #### U A, UAMIC #### [place] [address] Laboratory - Microbiology an d Antimicrobial susceptibilityOrdered By: [facility] on 07-15-2022 Bacteria identified Cx Nom (Bld) Culture has been received in lab and is no growth to date. Culture will be held for four weeks. [facility] No Panel Informationon 07-15 Culture Urine No growth at 48 hours. [facility] Work Phone: Microscopic examination of blood, culture Culture has been received in lab and is no growth to date. Routine cultures are held for 5 days. [facility] Work Phone: PBNPon 07-15-2022 Natriuretic peptide B (Bld) [Mass/Vol] 194 pg/mL Normal 0-450 [facility] ([place]) Comment on above: Result Comment: NT-p roBNP results of less than 300 pg/mL effectively rules out acute congestive heart failure with 99% negative predictive value. Performed By: #### U A, UAMIC #### [address] [address] TROPHSon 07-15-2022 Troponin I High Sensitivity 14.91 ng/L Normal 0.00-34.00 [facility] ([place]) Comment on above: Result Comment: If t he High Sensitive Troponin result is below the 99th percentile value (<45 ng/L) at the first blood draw, at least two additional blood samples should be drawn before results are interpreted as negative for AMI. Performed By: #### T ROPHS #### [place] [address] UAon 07-15-2022 Color (U) Yellow Normal [facility] ([place]) Comment on above: Performed By: #### U A, UAMIC #### [place] [id number] Glucose (U) [Mass/Vol] Negative Normal Negative Blue [facility] ([place]) Comment on above: Performed By: #### U A, UAMIC #### [place] [address] Ketones Ql (U) Negative Normal Neg-Trace [facility] ([place]) Comment on above: Performed By: #### U A, UAMIC #### [place] [address] UA Appear Clear Normal Clear [facility] ([place]) Comment on above: Performed By: #### U A, UAMIC #### [place] [id number] UA Blood Large Abnormal Neg-Trace [facility] ([place]) Comment on above: Performed By: #### U A, UAMIC #### [place] [id number] UA Leuk Est Small Abnormal Negative [facility] ([place]) Comment on above: Performed By: #### U A, UAMIC #### [place] [id number] UA Nitrite Negative Normal Negative [facility] ([place]) Comment on above: Performed By: #### U A, UAMIC #### [place] [id number] UA pH 5.5 Normal 5.0 - 8.0 [facility] ([place]) Comment on above: Performed By: #### U A, UAMIC #### [place] [address] UA Protein Trace Normal Negative [facility] ([place]) Comment on above: Performed By: #### U A, UAMIC #### [place] [address] UA Spec Grav 1.010 Normal 1.006-1.029 [facility] ([place]) Comment on above: Performed By: #### U A, UAMIC #### [place] [address] UA Specimen Type Clean Catch Normal [facility] ([place]) Comment on above: Performed By: #### U A, UAMIC #### [place] [address] UA Urobilinogen 0.2 E.U./dL Normal 0.2-1.0 [facility] ([place]) Comment on above: Performed By: #### U A, UAMIC #### [place] [address] Urobilinogen (U) [Mass/Vol] Negative Normal Neg-Trace [facility] ([place]) Comment on above: Performed By: #### U A, UAMIC #### [place] [address] UAMICon 07-15-2022 UA Bacteria Trace Abnormal Negative [facility] ([place]) Comment on above: Performed By: #### U A, UAMIC #### [place] [address] UA Ghost cells 0-2 Abnormal [facility] ([place]) Comment on above: Performed By: #### U A, UAMIC #### [place] [address] UA Glitter cells 0-2 Abnormal [facility] ([place]) Comment on above: Performed By: #### U A, UAMIC #### [place] [address] UA RBC 5-10 Abnormal 0-2 [facility] ([place]) Comment on above: Performed By: #### U A, UAMIC #### [facility] [address] [place] [id number] UA Squam Epithelial 0-2 Normal 0-20 [facility] ([place]) Comment on above: Performed By: #### U A, UAMIC #### [facility] [address] [place] [address] UA Transitional Epithelial 0-2 Normal [facility] ([place]) Comment on above: Performed By: #### U A, UAMIC #### [facility] [address] [place] [address] UA WBC 3-5 Normal 0-5 [facility] ([place]) Comment on above: Performed By: #### U A, UAMIC #### [facility] [address] [place] [address] US PELVIS NON-OB COMPLETEon 07-15-2022 US PELVIS NON-OB COMPLETE ORIGINAL EXAMINATION: PELVIC ULTRASOUND 07/15/2022 TECHNIQUE: Transabdominal pelvic ultrasound with ovarian Doppler. COMPARISON: [facility] 08/12/2021 HISTORY: ORDERING SYSTEM PROVIDED HISTORY: Reason for Exam: Possible endometritis, fevers of unknown origin, post-op Postop FINDINGS: Measurements: Uterus: 21.5 x 14.3 x 9.1 cm Endometrial stripe: 2.5 cm Right Ovary:Not visualized. Left Ovary: Not visualized. Ultrasound Findings: Uterus/endometrium: Enlarged uterus demonstrates heterogenous myometrial echotexture. Hypervascularity within the myometrium anteriorly. Prominent, slightly heterogenous endometrium. Doppler flow present within the endometrium. Right Ovary: Not visualized. Left Ovary: Not visualized. Free Fluid: Small volume free fluid within the pouch of Koby. IMPRESSION: Findings consistent with uterus. Doppler flow present within a prominent endometrium; retained products of conception cannot be excluded. Nonvisualized ovaries. ATTENDING ADDENDUM by Dr. Dov Clifford at 5:06 pm on 07/15/2022. Irregular endometrial reverberation artifacts are probably gas locules, raising suspicion for endometritis. Doppler flow can be seen with RPOC but remains suspicious for endometritis. Findings were discussed via Cortext with OBGYN resident Dr. CARLITO CENTENO at 5:07 pm on 07/15/2022. I have personally reviewed the images of this examination and edited the resident's findings and interpretation. RECOMMENDATIONS: Unavailable Interpreted by: Dov Clifford DO Preliminary Report By: Kadeem Raymond Electronically signed By Dov Clifford DO Dictated Date: 07/15/2022 4:20:45 PM Prelim Date: 07/15/2022 4:30:46 PM Sign Date: 07/15/2022 5:09:33 PM Ordering Provider: CARLITO Bruce [facility] ([place]) CEFEPIME:SUSC:PT:ISOLATE:ORD QN:MICon 07-14-2022 Cefepime MARTINE [Susc] Rare Escherichia col i Few Streptococcus parasanguinis No anaerobes isolated to date. Neisseria gonorrhoeae: Negative Gardnerella vaginalis: Negative Ureaplasma urealyticum: Pending [facility] Work Phone: Cefepime MARTINE [Susc]on 2022 Escherichia coli Escherichia coli [place] Work Phone: GS 2+ Polymorphonuclear cells 2+ Mononuclear cells Rare Gram Positive Cocci [facility] Work Phone: Streptococcus parasanguinis Streptococcus parasanguinis [facility] Work Phone: RPRon 07-13-2022 Reagin Ab RPR Ql (S) Non-Reactive Normal Non-Reactive [facility] ([place]) Comment on above: Result Comment: The RPR test is a non-treponemal assay useful as an aid in the diagnosis of primary and secondary syphilis. It converts to positive generally within 2 weeks after the appearance of a lesion. This test is also useful for monitoring response to antibiotic therapy. A positive RPR screening test will be followed by the FTA ABS test. False positive RPR tests may occur in 1) patients with underlying autoimmune disorders, 2) elderly patients, 3) , and 4) other conditions with abnormal serum globulins. Performed By: #### U A UAMIC #### [place] [address] .Auto Diffon 07-12-2022 Basophil, Absolute 0.1 10 3/mcL Normal 0.0-0.3 [facility]) Comment on above: Performed By: #### U A, UAMIC #### [address] [address] Basophils/100 WBC (Bld) 1.0 % Normal 0.0-2.5 A Counts include 234 beds at the [facility] ([place]) Comment on above: Performed By: #### U A, UAMIC #### [address] [address] Eosinophil, Absolute 0.1 10 3/mcL Normal 0.0-0.7 [facility] ([place]) Comment on above: Performed By: #### U A, UAMIC #### [address] [address] Eosinophils/100 WBC (Bld) 1.2 % Normal 0.0-6.0 [facility] ([place]) Comment on above: Performed By: #### U A, UAMIC #### [address] [address] Lymphocyte, Absolute 1.8 10 3/mcL Normal 0.9-4.3 [facility] ([place]) Comment on above: Performed By: #### U A, UAMIC #### [address] [address] Lymphocytes/100 WBC (Bld) 17.4 % Low 20.0-40.0 [facility] ([place]) Comment on above: Performed By: #### U A, UAMIC #### [address] [address] Monocyte, Absolute 0.7 10 3/mcL Normal 0.1-1.4 [facility] ([place]) Comment on above: Performed By: #### U A, UAMIC #### [address] [address] Monocytes/100 WBC (Bld) 7.0 % Normal 2.0-13.0 A Counts include 234 beds at the [facility] ([place]) Comment on above: Performed By: #### U A, UAMIC #### [address] [address] Neutrophils/100 WBC (Bld) 73.4 % Normal 50.0-75.0 [facility] ([place]) Comment on above: Performed By: #### U Joycelyn UAMIC #### [address] [address] .NEUABSon 07-12-2022 Neutrophil, Absolute 7.5 10 3/mcL Normal 2.3-8.1 [facility] ([place]) Comment on above: Performed By: #### U Joycelyn UAMIC #### [place] [id number] ABO/Rh (Gel)on 07-12-2022 ABO/Rh Interp Positive Invalid Interpretation Code [facility] ([place]) Comment on above: Performed By: #### U Joycelyn UAMIC #### [place] [id number] ABS (Gel)on 07-12-2022 ABSC Interp (Gel) Negative Normal [facility] ([place]) Comment on above: Performed By: #### Cadence Hirsch UAMIC #### [place] [id number] CBCon 07-12-2022 Erythrocyte distribution width (RBC) [Ratio] 13.2 % Normal 11.5-15.5 [facility] ([place]) Comment on above: Performed By: #### Cadence Hirsch UAMIC #### [place] [address] Hematocrit (Bld) [Volume fraction] 34.4 % Normal 34.0-46.0 [facility] ([place]) Comment on above: Performed By: #### Cadence Hirsch UAMIC #### [place] [address] Hgb 11.8 G/dL Low 12.0-16.0 [facility] ([place]) Comment on above: Performed By: #### U Joycelyn UAMIC #### [place] [id number] MCH (RBC) [Entitic mass] 31.9 pg Normal 27.0-33.0 [facility] ([place]) Comment on above: Performed By: #### U A UAMIC #### [place] [id number] MCHC 34.4 G/dL Normal 32.0-36.0 [facility] ([place]) Comment on above: Performed By: #### U A, UAMIC #### [address] [address] MCV (RBC) [Entitic vol] 92.7 fL Normal 80.0-99.0 A Counts include 234 beds at the [facility] ([place]) Comment on above: Performed By: #### U A, UAMIC #### [address] [address] Platelet 266 10 3/mcL Normal 150-450 [facility] ([place]) Comment on above: Performed By: #### U A, UAMIC #### [address] [address] Platelet mean volume (Bld) [Entitic vol] 8.7 fL Normal 6.6-10.5 [facility] ([place]) Comment on above: Performed By: #### U A, UAMIC #### [place] [id number] RBC 3.71 10 6/mcL Low 4.10-5.30 [facility] ([place]) Comment on above: Performed By: #### U A, UAMIC #### [address] [address] WBC 10.3 10 3/mcL Normal 4.5-10.8 [facility] ([place]) Comment on above: Performed By: #### U A, UAMIC #### [place] [address] LABORATORYOrdered By: Carlo Amaya on 07-12-2022 ABO and Rh group Nom (Bld) Blood group O Rh(D) positive Invalid Interpretation Code AH BB Auto SS Blood group antibody screen Ql Negative ABSC (07/12/22 11:46 AM) Invalid Interpretation Code AH BB Auto SS LABORATORYOrdered By: SYSTEM SYSTEM on 07-12-2022 Basophils (Bld) [#/Vol] 0.1 103/mcL Invalid Interpretation Code 0.0 - 0.3 10^3/mcL AH Workflow SS Basophils/100 WBC (Bld) 1.0 % Invalid Interpretation Code 0.0 - 2.5 % AH Workflow SS Eosinophils (Bld) [#/Vol] 0.1 103/mcL Invalid Interpretation Code 0.0 - 0.7 10^3/mcL Workflow SS Eosinophils/100 WBC (Bld) 1.2 % Invalid Interpretation Code 0.0 - 6.0 % Workflow SS Lymphocytes (Bld) [#/Vol] 1.8 103/mcL Invalid Interpretation Code 0.9 - 4.3 10^3/mcL Workflow SS Lymphocytes/100 WBC (Bld) 17.4 % Invalid Interpretation Code 20.0 - 40.0 % Workflow SS Monocytes (Bld) [#/Vol] 0.7 103/mcL Invalid Interpretation Code 0.1 - 1.4 10^3/mcL Workflow SS Monocytes/100 WBC (Bld) 7.0 % Invalid Interpretation Code 2.0 - 13.0 % Workflow SS Neutrophils (Bld) [#/Vol] 7.5 103/mcL Invalid Interpretation Code 2.3 - 8.1 10^3/mcL Workflow SS Neutrophils/100 WBC (Bld) 73.4 % Invalid Interpretation Code 50.0 - 75.0 % Workflow SS LABORATORYOrdered By: Brigette Pierre on 07-12-2022 Reagin Ab RPR Ql (S) Non-Reactive (07/12/22 11:46 AM) Invalid Interpretation Code Non-Reactive [facility] Viro/Sero SS LABORATORYOrdered By: Trey Pedro on 07-12-2022 ABO and Rh group Nom (Bld) O positive (07/12/22 11:28 AM) [facility] Work Phone: Group B Strep Date Performed [id number] [facility] Work Phone: Group B Strep, External Negative (07/12/22 11:28 AM) [facility] Work Phone: Hepatitis B Date Performed [id number] [facility] Work Phone: Hepatitis B, External Negative (07/12/22 11:28 AM) [facility] Work Phone: HIV Antibodies, External Negative (07/12/22 11:28 AM) [facility] Work Phone: RPR, External Nonreactive (07/12/22 11:28 AM) [facility] Work Phone: Rubella, External Immune (07/12/22 11:28 AM) [facility] Work Phone: GBSPCRon 06-18-2022 Group B Strep (PCR) Negative Normal Negative [facility] ([place]) Comment on above: Result Comment: Note s [id number] Performed By: #### G BSPCR #### [place] [address] Group B Strep PCR Int Normal [facility] ([place]) Comment on above: Result Comment: Grou p B Streptococcus DNA not detected by Real-Time Polymerase Chain Reaction (PCR). A negative result does rule out the possibility of Group B Streptococcus. False Negative results may occur when Group B Streptococcus concentration is below the level of detection. If the patient has signs or symptoms of infection, other laboratory tests and clinical information should be used to confirm the negative result. This test is not intended to differentiate carriers of Group B Streptococcus from those with Streptococcus disease. See Below Performed By: #### G BSPCR #### [place] [id number] UAon 05-06-2022 Color (U) Yellow Normal [facility] ([place]) Comment on above: Performed By: #### U A, UAMIC #### [place] [id number] Glucose (U) [Mass/Vol] 100 mg/dL Abnormal Negative [facility] ([place]) Comment on above: Performed By: #### U A, UAMIC #### [place] [id number] Ketones Ql (U) Trace Normal Neg-Trace [facility] ([place]) Comment on above: Performed By: #### U A, UAMIC #### [place] [id number] UA Appear Cloudy Abnormal Clear [facility] ([place]) Comment on above: Performed By: #### U A, UAMIC #### [place] [id number] UA Blood Negative Normal Neg-Trace [facility] ([place]) Comment on above: Performed By: #### U A, UAMIC #### [place] [address] UA Leuk Est Large Abnormal Negative [facility] ([place]) Comment on above: Performed By: #### U A, UAMIC #### [address] [address] UA Nitrite Negative Normal Negative [facility] ([place]) Comment on above: Performed By: #### U A, UAMIC #### [place] [address] UA pH 7.0 Normal 5.0 - 8.0 [facility] ([place]) Comment on above: Performed By: #### U A, UAMIC #### [place] [address] UA Protein Trace Normal Negative [facility] ([place]) Comment on above: Performed By: #### U A, UAMIC #### [place] [address] UA Spec Grav 1.020 Normal 1.006-1.029 [facility] ([place]) Comment on above: Performed By: #### U A, UAMIC #### [place] [address] UA Specimen Type Clean Catch Normal [facility] ([place]) Comment on above: Performed By: #### U A, UAMIC #### [place] [address] UA Urobilinogen 0.2 E.U./dL Normal 0.2-1.0 [facility] ([place]) Comment on above: Performed By: #### U A, UAMIC #### [place] [address] Urobilinogen (U) [Mass/Vol] Negative Normal Neg-Trace [facility] ([place]) Comment on above: Performed By: #### U A, UAMIC #### [place] [address] UAMICon 05-06-2022 UA Bacteria 1+ /hpf Abnormal Negative [facility] ([place]) Comment on above: Performed By: #### U A, UAMIC #### [place] [address] UA Mucous Trace Normal [facility] ([place]) Comment on above: Performed By: #### U A, UAMIC #### [facility] [address] [place] [address] UA RBC 0-2 Normal 0-2 [facility] ([place]) Comment on above: Performed By: #### U A, UAMIC #### [facility] [address] [place] [address] UA Squam Epithelial 5-10 Normal 0-20 [facility] ([place]) Comment on above: Performed By: #### U A, UAMIC #### [place] [address] UA Transitional Epithelial 0-2 Normal [facility] ([place]) Comment on above: Performed By: #### U A, UAMIC #### [place] [address] UA WBC 10-20 Abnormal 0-5 [facility] ([place]) Comment on above: Performed By: #### U A, UAMIC #### [place] [address] LABORATORYOrdered By: Trey Miller on 09-28-2021 Beta HCG ( test) Ql (U) Negative (09/28/21 2:18 PM) [facility] Work Phone: LABORATORYOrdered By: Tracy Hernandez on 08-12-2021 Beta HCG ( test) Ql (U) HCG not detected.Very dilute urine specimens, as indicated by a low specific gravity, may not contain business process representative levels of hCG.If is still suspected, a first morning urine specimen should be collected 48 hours later and tested. Invalid Interpretation Code Manual Urine SS HCG Qn (U) Negative (08/12/21 9:10 AM) Invalid Interpretation Code Manual Urine SS PROGESTERONE [CCL]on 022 Progesterone 3.5 ng/mL Normal See comment [facility] Comment on above: Result Comment: Mens trual Cycle Progesterone Reference Ranges: Follicular: <1.0 ng/mL Ovulation: <12.1 ng/mL Luteal: 1.8 to 23.9 ng/mL. Progesterone Reference Ranges vary by gestational period: First Trimester: 11.0 to 44.3 ng/mL Second Trimester: 25.4 to 83.3 ng/mL Third Trimester: 58.7 to 214 ng/mL Post menopausal Progesterone: <0.5 ng/mL Reference: 1. Progesterone (Progesterone III) [package insert V 1.0 Indonesian]. [facility], [place], [place]. November 2014. [facility] [employer] [facility] [address] [place] [address] Lamberto Lopez III, M.D. [id number] Performed By: #### 2 [id number] #### [address] [address] HGB A1C [CCL]on 06-13-2021 HbA1c (Bld) [Mass fraction] 5.2 % Normal 4.3-5.6 [facility] Comment on above: Result Comment: [place] Diabetes Association guidelines indicate that patients with HgbA1c in the range 5.7-6.4% are at increased risk for development of diabetes, and intervention by lifestyle modification may be beneficial. HgbA1c greater or equal to 6.5% is considered diagnostic of diabetes. Performed By: #### 2 [id number] #### [address] [address] Hemoglobin A0 103 mg/dL Normal [facility] Comment on above: Result Comment: eAG: (Estimated average glucose) is a calculated value from HgbA1c and is business process representative of the average blood glucose level in the last 2-3 month period. [facility] [employer] [facility] [address] [place] [address] Lamberto Lopez III, M.D. [id number] Performed By: #### 2 [id number] #### [address] [address] Vital Signs Date Time Vital Sign Value Performing Clinician Facility 10-16-2024 13:32-0400 Body height 165.1 cm No Primary Care Physician [facility] 10-16-2024 13:32-0400 Body mass index (BMI) [Ratio] 36.7 kg/m2 No Primary Care Physician [facility] 10-16-2024 13:32-0400 Body weight 100.04 kg No Primary Care Physician [facility] 10-16-2024 13:32-0400 Diastolic blood pressure 77 mm[Hg] No Primary Care Physician [facility] 10-16-2024 13:32-0400 Systolic blood pressure 123 mm[Hg] No Primary Care Physician [facility] 10-11-2024 07:57-0400 Body height 165.1 cm No Primary Care Physician [facility] 10-11-2024 07:57-0400 Body mass index (BMI) [Ratio] 36.5 kg/m2 No Primary Care Physician [facility] 10-11-2024 07:57-0400 Body weight 99.59 kg No Primary Care Physician [facility] 10-11-2024 07:57-0400 Diastolic blood pressure 79 mm[Hg] No Primary Care Physician [facility] 10-11-2024 07:57-0400 Systolic blood pressure 112 mm[Hg] No Primary Care Physician [facility] 10-02-2024 14:55-0400 Body height 165.1 cm No Primary Care Physician [facility] 10-02-2024 14:55-0400 Body mass index (BMI) [Ratio] 37 kg/m2 No Primary Care Physician [facility] 10-02-2024 14:55-0400 Body weight 100.81 kg No Primary Care Physician [facility] 10-02-2024 14:55-0400 Diastolic blood pressure 84 mm[Hg] No Primary Care Physician [facility] 10-02-2024 14:55-0400 Systolic blood pressure 122 mm[Hg] No Primary Care Physician [facility] 09-24-2024 14:08-0400 Body height 165.1 cm No Primary Care Physician [facility] 09-24-2024 14:08-0400 Body mass index (BMI) [Ratio] 36.1 kg/m2 No Primary Care Physician [facility] 09-24-2024 14:08-0400 Body weight 98.57 kg No Primary Care Physician [facility] 09-24-2024 14:08-0400 Diastolic blood pressure 81 mm[Hg] No Primary Care Physician [facility] 09-24-2024 14:08-0400 Systolic blood pressure 119 mm[Hg] No Primary Care Physician [facility] 09-11-2024 09:34-0400 Body height 165.1 cm No Primary Care Physician [facility] 09-11-2024 09:34-0400 Body mass index (BMI) [Ratio] 36.3 kg/m2 No Primary Care Physician [facility] 09-11-2024 09:34-0400 Body weight 98.91 kg No Primary Care Physician [facility] 09-11-2024 09:34-0400 Diastolic blood pressure 76 mm[Hg] No Primary Care Physician [facility] 09-11-2024 09:34-0400 Systolic blood pressure 118 mm[Hg] No Primary Care Physician [facility] 08-28-2024 14:41-0400 Body height 165.1 cm No Primary Care Physician [facility] 08-28-2024 14:41-0400 Body mass index (BMI) [Ratio] 36.3 kg/m2 No Primary Care Physician [facility] 08-28-2024 14:41-0400 Body weight 98.99 kg No Primary Care Physician [facility] 08-28-2024 14:41-0400 Diastolic blood pressure 78 mm[Hg] No Primary Care Physician [facility] 08-28-2024 14:41-0400 Systolic blood pressure 115 mm[Hg] No Primary Care Physician [facility] 08-15-2024 11:21-0400 Body height 165.1 cm No Primary Care Physician [facility] 08-15-2024 11:21-0400 Body mass index (BMI) [Ratio] 35.6 kg/m2 No Primary Care Physician [facility] 08-15-2024 11:21-0400 Body weight 97.23 kg No Primary Care Physician [facility] 08-15-2024 11:21-0400 Diastolic blood pressure 77 mm[Hg] No Primary Care Physician [facility] 08-15-2024 11:21-0400 Systolic blood pressure 109 mm[Hg] No Primary Care Physician [facility] 07-30-2024 15:24-0400 Body height 165.1 cm No Primary Care Physician [facility] 07-30-2024 15:24-0400 Body mass index (BMI) [Ratio] 35.9 kg/m2 No Primary Care Physician [facility] 07-30-2024 15:24-0400 Body weight 97.97 kg No Primary Care Physician [facility] 07-30-2024 15:24-0400 Diastolic blood pressure 80 mm[Hg] No Primary Care Physician [facility] 07-30-2024 15:24-0400 Systolic blood pressure 118 mm[Hg] No Primary Care Physician [facility] 07-04-2024 10:51-0400 Body height 165.1 cm No Primary Care Physician [facility] 07-04-2024 10:50-0400 Body mass index (BMI) [Ratio] 34.8 kg/m2 No Primary Care Physician [facility] 07-04-2024 10:50-0400 Body weight 95.02 kg No Primary Care Physician [facility] 07-04-2024 10:50-0400 Diastolic blood pressure 76 mm[Hg] No Primary Care Physician [facility] 07-04-2024 10:50-0400 Systolic blood pressure 110 mm[Hg] No Primary Care Physician [facility] 06-08-2024 11:48-0400 Body mass index (BMI) [Ratio] 34 kg/m2 No Primary Care Physician [facility] 06-08-2024 11:48-0400 Body weight 92.58 kg No Primary Care Physician [facility] 06-08-2024 11:48-0400 Diastolic blood pressure 74 mm[Hg] No Primary Care Physician [facility] 06-08-2024 11:48-0400 Systolic blood pressure 107 mm[Hg] No Primary Care Physician [facility] 05-09-2024 08:39-0400 Body mass index (BMI) [Ratio] 32.6 kg/m2 No Primary Care Physician [facility] 05-09-2024 08:39-0400 Body weight 89.07 kg No Primary Care Physician [facility] 05-09-2024 08:39-0400 Diastolic blood pressure 76 mm[Hg] No Primary Care Physician [facility] 05-09-2024 08:39-0400 Systolic blood pressure 112 mm[Hg] No Primary Care Physician [facility] 04-13-2024 10:21-0500 Body mass index (BMI) [Ratio] 32.1 kg/m2 No Primary Care Physician [facility] 04-13-2024 10:21-0500 Body weight 87.71 kg No Primary Care Physician [facility] 04-13-2024 10:21-0500 Diastolic blood pressure 84 mm[Hg] No Primary Care Physician [facility] 04-13-2024 10:21-0500 Systolic blood pressure 118 mm[Hg] No Primary Care Physician [facility] 03-16-2024 13:16-0500 Body mass index (BMI) [Ratio] 32 kg/m2 No Primary Care Physician [facility] 03-16-2024 13:16-0500 Body weight 87.25 kg No Primary Care Physician [facility] 03-16-2024 13:16-0500 Diastolic blood pressure 79 mm[Hg] No Primary Care Physician [facility] 03-16-2024 13:16-0500 Systolic blood pressure 119 mm[Hg] No Primary Care Physician [facility] 06-17-2023 23:09-0400 Body temperature 98 [degF] [facility] 06-17-2023 23:09-0400 Diastolic blood pressure 87 mm[Hg] [facility] 06-17-2023 23:09-0400 Heart rate 65 /min [facility] 06-17-2023 23:09-0400 Respiratory rate 18 /min [facility] 06-17-2023 23:09-0400 SaO2% (BldA) [Mass fraction] 97 % [facility] 06-17-2023 23:09-0400 Systolic blood pressure 118 mm[Hg] [facility] 06-17-2023 19:13-0400 Body height 160.02 cm [facility] 07-17-2022 07:10-0400 Body temperature 98.06 [degF] Starbak DO [facility] 07-17-2022 07:10-0400 Diastolic Blood Pressure Non-Invasive 80 1 HILARY LIONEL DO [facility] 07-17-2022 07:10-0400 Heart rate 96 /min [employer] [facility] 07-17-2022 07:10-0400 Reason For Taking VItal Signs HILARY LIONEL DO [facility] 07-17-2022 07:10-0400 Respiratory rate 18 /min HILARY LIONEL DO [facility] 07-17-2022 07:10-0400 Systolic Blood Pressure Non-Invasive 132 1 HILARY LIONEL DO [facility] 07-17-2022 04:02-0400 Body temperature 98.42 [degF] HILARY LIONEL DO [facility] 07-17-2022 04:02-0400 Diastolic Blood Pressure Non-Invasive 81 1 HILARY LIONEL DO [facility] 07-17-2022 04:02-0400 Heart rate 89 /min HILARY LIONEL DO [facility] 07-17-2022 04:02-0400 Reason For Taking VItal Signs HILARY LIONEL DO [facility] 07-17-2022 04:02-0400 Respiratory rate 18 /min HILARY LIONEL DO [facility] 07-17-2022 04:02-0400 Systolic Blood Pressure Non-Invasive 123 1 HILARY LIONEL DO [facility] 07-16-2022 22:52-0400 Body temperature 98.24 [degF] HILARY LIONEL DO [facility] 07-16-2022 22:52-0400 Diastolic Blood Pressure Non-Invasive 77 1 HILARY LIONEL DO [facility] 07-16-2022 22:52-0400 Heart rate 100 /min HILARY LIONEL DO [facility] 07-16-2022 22:52-0400 Reason For Taking VItal Signs HILARY LIONEL DO [facility] 07-16-2022 22:52-0400 Respiratory rate 20 /min HILARY LIONEL DO [facility] 07-16-2022 22:52-0400 Systolic Blood Pressure Non-Invasive 125 1 HILARY LIONEL DO [facility] 07-16-2022 13:00-0400 Mean blood pressure 92 mm[Hg] HILARY LIONEL DO [facility] 07-16-2022 11:50-0400 Mean blood pressure 97 mm[Hg] HILARY LIONEL DO [facility] 07-16-2022 11:00-0400 Mean blood pressure 103 mm[Hg] HILARY LIONEL DO [facility] 07-14-2022 03:45-0400 Body temperature 96.8 [degF] HILARY LIONEL DO [facility] 07-14-2022 03:40-0400 Respiratory Rate - Anes 0 br/min HILARY LIONEL DO [facility] 07-14-2022 03:35-0400 Respiratory Rate - Anes 25 br/min HILARY LIONEL DO [facility] 07-14-2022 03:30-0400 Body temperature 96.8 [degF] HILARY LIONEL DO [facility] 07-14-2022 03:30-0400 Respiratory Rate - Anes 4 br/min HILARY LIONEL DO [facility] 07-14-2022 03:15-0400 Body temperature 96.8 [degF] HILARY LIONEL DO [facility] 07-12-2022 11:28-0400 Body height 160.6 cm HILARY LIONEL DO [facility] 07-12-2022 11:28-0400 Body weight 89 kg HILARY LIONEL DO [facility] 07-12-2022 11:28-0400 Body weight 34.51 kg/m2 HILARY FLOWERS DO [facility] 09-28-2021 17:10-0400 Body temperature 97.34 [degF] FEDERICO VASSAS DO [facility] 09-28-2021 17:10-0400 Diastolic blood pressure 80 mm[Hg] FEDERICO VASSAS DO [facility] 09-28-2021 17:10-0400 Heart rate 79 /min FEDERICO VASSAS DO [facility] 09-28-2021 17:10-0400 Mean blood pressure 92 mm[Hg] FEDERICO VASSAS DO [facility] 09-28-2021 17:10-0400 Respiratory rate 16 /min FEDERICO VASSAS DO [facility] 09-28-2021 17:10-0400 Systolic blood pressure 115 mm[Hg] FEDERICO VASSAS DO [facility] 09-28-2021 16:36-0400 Body temperature 97.52 [degF] FEDERICO VASSAS DO [facility] 09-28-2021 16:36-0400 Diastolic Blood Pressure NBP 80 1 FEDERICO VASSAS DO [facility] 09-28-2021 16:36-0400 Heart rate 76 /min FEDERICO VASSAS DO [facility] 09-28-2021 16:36-0400 Mean blood pressure 89 mm[Hg] FEDERICO VASSAS DO [facility] 09-28-2021 16:36-0400 Respiratory rate 16 /min FEDERICO VASSAS DO [facility] 09-28-2021 16:36-0400 Systolic Blood Pressure NBP 116 1 FEDERICO VASSAS DO [facility] 09-28-2021 16:20-0400 Diastolic Blood Pressure NBP 84 1 FEDERICO VASSAS DO [facility] 09-28-2021 16:20-0400 Heart rate 78 /min FEDERICO VASSAS DO [facility] 09-28-2021 16:20-0400 Mean blood pressure 93 mm[Hg] FEDERICO VASSAS DO [facility] 09-28-2021 16:20-0400 Respiratory rate 16 /min FEDERICO VASSAS DO [facility] 09-28-2021 16:20-0400 Systolic Blood Pressure NBP 123 1 FEDERICO VASSAS DO [facility] 09-28-2021 16:06-0400 Body temperature 97.52 [degF] FEDERICO VASSAS DO [facility] 09-28-2021 16:06-0400 Diastolic blood pressure 84 mm[Hg] FEDERICO VASSAS DO [facility] 09-28-2021 16:06-0400 Mean blood pressure 97 mm[Hg] FEDERICO VASSAS DO [facility] 09-28-2021 16:06-0400 Systolic blood pressure 123 mm[Hg] FEDERICO VASSAS DO [facility] 09-28-2021 16:02-0400 Diastolic Blood Pressure NBP 90 1 FEDERICO VASSAS DO [facility] 09-28-2021 16:02-0400 Systolic Blood Pressure NBP 120 1 FEDERICO VASSAS DO [facility] 09-28-2021 15:50-0400 Body temperature 97.38 [degF] FEDERICO VASSAS DO [facility] 09-28-2021 15:45-0400 Body temperature 97.34 [degF] FEDERICO VASSAS DO [facility] 09-28-2021 15:40-0400 Body temperature 97.18 [degF] FEDERICO VASSAS DO [facility] 09-28-2021 14:13-0400 Body height 160 cm FEDERICO VASSAS DO [facility] 09-28-2021 14:13-0400 Body weight 72.4 kg FEDERICO VASSAS DO [facility] 09-28-2021 14:13-0400 Diastolic blood pressure 81 mm[Hg] FEDERICO VASSAS DO [facility] 09-28-2021 14:13-0400 Heart rate 93 /min FEDERICO VASSAS DO [facility] 09-28-2021 14:13-0400 Mean blood pressure 97 mm[Hg] FEDERICO VASSAS DO [facility] 09-28-2021 14:13-0400 Systolic blood pressure 128 mm[Hg] FEDERICO VASSAS DO [facility] Encounters Encounter Date Encounter Type Care Provider Facility Start: 10-16-2024 End: 10-16-[address] Laya Pugh MD -[facility] Work Phone: Start: 10-16-2024 End: 10-16-2024 ambulatory No Primary Care Physician -[facility] Start: 10-11-2024 End: 10-11-2024 Patient encounter procedure Jorge Valente CNM -[facility] Work Phone: Start: 10-11-2024 End: 10-11-2024 ambulatory No Primary Care Physician -[facility] Start: 10-02-2024 End: 10-02-[address] Laya Pugh MD -[facility] Work Phone: Start: 10-02-2024 End: 10-02-2024 ambulatory No Primary Care Physician -[facility] Start: 09-24-2024 End: 09-24-2024 ambulatory No Primary Care Physician -[facility] Specimen Start: 09-24-2024 End: 09-24-2024 Patient encounter procedure Jorge Valente CNM -[facility] Work Phone: Start: 09-24-2024 End: 09-24-2024 Patient encounter procedure Jorge CHRISTOPHERM -[facility] Work Phone: Start: 09-24-2024 End: 09-24-2024 ambulatory No Primary Care Physician -[facility] Start: 09-24-2024 End: 09-24-2024 ambulatory Jorge Valente Facility:[facility] Start: 09-11-2024 End: 09-11-[address] Holly Lindsey DO -[facility] Work Phone: Start: 09-11-2024 End: 09-11-2024 ambulatory No Primary Care Physician -[facility] Start: 08-28-2024 End: 08-28-2024 Patient encounter procedure Linh Obregon NP-C -[facility] Work Phone: Start: 08-28-2024 End: 08-28-2024 ambulatory No Primary Care Physician -[facility] Start: 08-15-2024 End: 08-15-2024 Patient encounter procedure Jorge Valente CNM -[facility] @ Start: 08-15-2024 End: 08-15-2024 ambulatory No Primary Care Physician -[facility] Start: 07-30-2024 End: 07-30-2024 Patient encounter procedure Linh Obregon NP-C -[facility] Work Phone: Start: 07-30-2024 End: 07-30-2024 ambulatory No Primary Care Physician [facility] Work Phone: Start: 07-30-2024 End: 07-30-2024 ambulatory No Primary Care Physician Facility:[facility] Start: 07-04-2024 End: 07-04-[address] Holly Lindsey DO -[facility] Work Phone: Start: 07-04-2024 End: 07-04-2024 ambulatory No Primary Care Physician [facility] Work Phone: Start: 06-08-2024 End: 06-08-[address] Laya Pugh MD -[facility] Work Phone: Start: 06-08-2024 End: 06-08-2024 ambulatory No Primary Care Physician Facility:[facility] Start: 05-28-2024 End: 05-28-2024 ambulatory MD [facility] Start: 05-09-2024 End: 05-09-2024 Patient encounter procedure Linh GREENE -[facility] Work Phone: Start: 05-09-2024 End: 05-09-2024 ambulatory No Primary Care Physician Facility:[facility] Start: 04-13-2024 End: 04-13-2024 Patient encounter procedure Jorge Valente CNM -[facility] Work Phone: Start: 04-13-2024 End: 04-13-2024 ambulatory No Primary Care Physician Facility:[facility] Start: 03-29-2024 End: 03-29-[address] Laya Pugh MD -[facility] Start: 03-29-2024 End: 03-29-2024 ambulatory No Primary Care Physician Facility:[facility] Start: 03-16-2024 End: 03-16-[address] Holly Lindsey DO -[facility] Specimen Work Phone: Start: 03-16-2024 End: 03-16-[address] Holly Lindsey DO -[facility] Work Phone: Start: 03-16-2024 End: 03-16-2024 ambulatory No Primary Care Physician Facility:[facility] Start: 03-16-2024 End: 03-16-2024 ambulatory No Primary Care Physician Facility:[facility] Start: 03-05-2024 End: 03-05-2024 ambulatory No Primary Care Physician Facility:[facility] Start: 03-02-2024 ambulatory No Primary Car e Physician Facility:[facility] Start: 02-27-2024 End: 02-27-2024 ambulatory No Primary Care Physician Facility:[facility] Start: 02-22-2024 End: 02-22-2024 ambulatory No Primary Care Physician Facility:[facility] Start: 02-20-2024 End: 02-20-2024 ambulatory No Primary Care Physician Facility:[facility] Start: 06-17-2023 End: 06-17-2023 Emergency department patient visit [facility]-Emergency Department Work Phone: Start: 07-12-2022 End: 07-17-2022 Evaluation and management of inpatient KHADIJAH NEVAREZ MD Facility:A Start: 07-12-2022 End: 07-17-2022 Evaluation and management of inpatient HILARY FLOWERS DO [facility] Start: 06-17-2022 End: 06-22-2022 ambulatory TERE BURRIS APRN-MEDICAL ADMINISTRATIVE ASSISTANT Facility:A Start: 05-06-2022 End: 05-11-2022 ambulatory CASH CIFUENTES MD Facility:A Start: 09-28-2021 End: 09-28-2021 ambulatory YEIMY PRICE DO Facility:A Start: 09-28-2021 End: 09-28-2021 SAME DAY STAY FEDERICO LIRIANO DO [facility] Start: 08-12-2021 End: 08-12-2021 Patient encounter procedure MIRIAM LOPEZ [facility] Start: 07-30-2021 ambulatory MIRIAM LOPEZ [facility] Start: 07-17-2021 End: 07-17-2021 [facility] Start: 07-17-2021 End: 07-17-2021 Encounter for gynecological examination (general) (routine) without abnormal findings MIRIAM REEVES [facility] Start: 06-19-2021 End: 06-19-2021 ambulatory MIRIAM REEVES [facility] Start: 06-12-2021 End: 06-12-2021 ambulatory MIRIAM REEVES [facility] Procedures Date Procedure Procedure Detail Performing Clinician Start: 09-24-2024 Beta-hemolytic Streptococcus culture No Primary Care Physician Start: 07-30-2024 Serologic test for syphilis No Primary Care Physician Start: 03-29-2024 Procedure No Primary Care Physician Start: 03-29-2024 Hepatitis B surface antigen measurement No Primary Care Physician Start: 03-29-2024 Hepatitis C antibody measurement No Primary Care Physician Comment on above: Non Reactive: < 0.8 Equivocal: >/= 0.8 to < 1.0 Reactive: >/= 1.0The CDC requires that a reactive/equivocal HCV antibody result be sent out for confirmation. HCV Quant by PCR testing. Start: 03-29-2024 Rubella IgG measurement No Primary Care Physician Comment on above: Antibody Results Int erpretation of Immune Status Non Reactive Presumed Non-Immune Equivocal Equivocal Reactive Presumed Immune Start: 03-16-2024 Liquid based cervica l cytology screening No Primary Care Physician Comment on above: NEGATIVE FOR INTRAEP ITHELIAL LESION OR MALIGNANCY. This liquid based Th inPrep(R) pap test was screened withthe use of an image guided system. The HPV DNA reflex c riteria were not met with this specimenresult therefore, no HPV testing was performed.Performed at: - [facility] [id number] [id number] Director: Hitesh Tinajero MD, Phone: [phone] at: [facility] [address] [id number] Director: Homa Rowell MD, Phone: [phone] Start: 03-16-2024 Urine culture No Primar y Care Physician Start: 06-17-2023 Transvaginal obstetr ic ultrasonography Start: 07-29-2021 Structure of wisdom tooth (body structure) FEDERICO LIRIANO DO H/O: section History of delivery, currently No Primary Care Physician Comment on above: x1 (2022), Desires V BRAULIO x1 (2022), Desires V BRAULIO, c/s 10/30 JV. H/O: section History of delivery, currently Dr. Holly Lindsey DO H/O: section History of delivery, currently Jorge CHRISTOPHERM H/O: section History of delivery, currently Linh Obregon CARD SERVICES SPECIALIST-C H/O: section History of delivery, currently Dr. Laya Pugh MD H/O: section History of delivery, currently Dr. Holly Lindsey DO H/O: section History of delivery, currently Linh Obregon CARD SERVICES SPECIALIST-C H/O: section History of delivery, currently Jorge CHRISTOPHERM H/O: section History of delivery, currently Linh Obregon CARD SERVICES SPECIALIST-C H/O: section History of delivery, currently Dr. Holly Lindsey DO H/O: section History of delivery, currently Jorge CHRISTOPHERM H/O: section History of delivery, currently Dr. aLya Pugh MD H/O: section History of delivery, currently Jorge Valente CNM H/O: section History of delivery, currently Dr. Laya Pugh MD Plan of Treatment Date Care Activity Detail Author Start: 10-30-2024 ambulatory Ambulatory Facility:[facility] Start: 07-30-2024 CBC W Auto Differential panel - Blood [facility] Start: 07-30-2024 Measurement of glucose 2 hours after glucose challenge for glucose tolerance test [facility] Start: 07-30-2024 Serologic test for syphilis [facility] Start: 07-30-2024 [facility] Start: 06-17-2023 [facility] CBC W Auto Different ial panel - Blood [facility] Choriogonadotropin ( test) [Presence] in Serum or Plasma [facility] Erythrocyte mean cor puscular volume determination [facility] Hematocrit [Volume F raction] of Blood [facility] Hemoglobin [Mass/vol ume] in Blood [facility] Leukocytes [#/volume ] in Blood [facility] Mean corpuscular hem oglobin concentration determination [facility] Mean corpuscular hem oglobin determination [facility] Measurement of gluco se 2 hours after glucose challenge for glucose tolerance test [facility] Neutrophil count [facility] Neutrophil percent differential count [facility] Patient Education Miscarriage Th reatened [facility] Work Phone: Patient referral [facility] Work Phone: Platelets [#/volume] in Blood [facility] Red blood cell count [facility] Red cell distributio n width determination [facility] Serologic test for syphilis [facility] Streptococcus agalac tiae [Presence] in Unspecified specimen by Organism specific culture [facility] Payers Date Payer Category Payer Unknown [id number] 2021 Self-pay 2000 Unknown [id number] 2.16.8 [id number] 1999 Unknown [id number] 2.16.8 [id number] 1999 Unknown [id number] 2.16.8 [id number] 1999 Unknown [id number] 2.16.8 [id number] Self-pay SELF PAY ER DEPOSIT [id number] Unknown [id number] 2.16.8 40.1.469805.3.579.2.462 Unknown [id number] 2.16.8 40.1.951993.3.579.2.462 Unknown [id number] 2.16.8 40.1.579464.3.579.2.462 Unknown [id number] 2.16.8 40.1.945118.3.579.2.462 Unknown [id number] 2.16.8 40.1.127178.3.579.2.462 Unknown [id number] 2.16.8 40.1.374471.3.579.2.462 Unknown [id number] 2.16.8 40.1.015764.3.579.2.462 Unknown [id number] 2.16.8 40.1.819221.3.579.2.462 Unknown [id number] 2.16.8 40.1.451199.3.579.2.462 Unknown [id number] 2.16.8 40.1.161148.3.579.2.462 Unknown [id number] 2.16.8 40.1.558498.3.579.2.462 Unknown [id number] 2.16.8 40.1.211687.3.579.2.462 Unknown [id number] 2.16.8 40.1.969641.3.579.2.462 Unknown [id number] 2.16.8 40.1.098295.3.579.2.462 Unknown [id number] 2.16.8 40.1.176712.3.579.2.462 Unknown [id number] 2.16.8 40.1.794108.3.579.2.462 Unknown [id number] 2.16.8 40.1.571553.3.579.2.462 Unknown [id number] 2.16.8 40.1.146064.3.579.2.462 Unknown [id number] 2.16.8 40.1.454226.3.579.2.462 Unknown [id number] 2.16.8 40.1.001092.3.579.2.462 Unknown [id number] 2.16.8 40.1.047786.3.579.2.462 Unknown [id number] 2.16.8 40.1.566479.3.579.2.462 Unknown [id number] 2.16.8 40.1.329608.3.579.2.462 Social History Date Type Detail Facility Tobacco smoking status [facility] Start: 2000 Sex Assigned At Female [facility] Start: 06-17-2023 Tobacco smoking stat [facility] Unknown if ever smoked [facility] Start: 03-02-2024 [facility] Functional Status Date Assessment Result Facility 07-17-2022 Functional Status Ambulating in room, Awake [facility] 07-17-2022 Functional Status [facility] 07-17-2022 [facility] 07-17[facility] Functional Status SCD On/Re-applied bilat eral knee high [facility] 07-16-2022 Functional Status High Risk Safety Door o pen [facility] 07-16-2022 Functional Status [facility] 07-16-2022 Functional Status Living Situation Lives with spouse [facility] 07-16-2022 Functional Status [facility] 07-16-2022 Functional Status heel(s)s elevated [facility] 07-16-2022 Functional Status low air loss bed [facility] 07-16-2022 Functional Status Done [facility] 07-16-2022 Functional Status [facility] 07-16-2022 Functional Status [facility] 07-15-2022 Functional Status NPO Status Initiated [place] 07-15-2022 Functional Status Sitting in bed , Visiting with family [facility] 07-15-2022 Functional Status [facility] 07-15-2022 Functional Status [facility] 07-14-2022 Functional Status Shower Independent [facility] 07-12-2022 [facility] 09-28-[facility]21 Functional Status Up to bathroom , Up with assistance [facility] 09-28-2021 [facility]-28[facility] 09-28-[facility]21 Functional Status Maintained [facility] Mental Status Date Assessment Result Facility 07-16-2022 Mental Status Oriented x 4 [facility] 07-16-2022 Mental Status [facility] 07-16-2022 Mental Status [facility] 07-16-2022 Mental Status [facility] 09-28-2021 Mental Status Orientation Oriented x 4 [place] 09-28-2021 Mental Status [facility] 09-28-2021 Mental Status [facility] Clinical Notes 08-12-2021 to 10-16-2024 Note Date & Type Note Facility 10-16-2024 Progress note [facility] 10-16-2024 Progress note Note Date/Time October 16, 2024 2:20pm [facility] [address] [place] [address], [address] [place] [address] OFFICE VISIT Date of Service: 10/16/24 MR#: [id number] Acct: [id number] Name: JERMAIN GERARD Rep #: [id number] : 2000 Provider: Dr. Ricco Pugh MD Age/Sex: 24/F Location: [facility] Status: Signed Intake Vital Signs 08/28/24 14:41 10/11/24 07:57 10/16/24 13:32 Height 5 ft 5 in 5 ft 5 in 5 ft 5 in Weight: 220 lb 9 oz BMI 36.7 BP 123/77 H Intake Visit Reasons: 39wk ob Vp Scientific Required: No Is patient in pain?: No Allergies No Known Allergies Allergy (Verified 10/16/24 13:35) Medications ?Medication ?Instructions ?Recorded ?Confirmed ?Type organ concentrates 80 mg capsule mg PO 08/02/23 History cholecalciferol (vitamin D3) 10 10 mcg PO QDAY 03/02/2 5 10/16/24 History mcg (400 unit) capsule docosahexaenoic acid 200 mg mg PO 03/02/24 10/16/24 Hi story capsule ( DHA) ferrous sulfate 325 mg (65 mg 325 mg PO QDAY 09/11/24 10/16/24 History iron) tablet Last Menstrual Period: 01/17/24 Zika: Zika virus screening: Negative : No PFSH PFSH Medical History Early stage of Partial hydatidiform mole Wears glasses Surgical History S/P D&C (status post dilation and curettage) H/O laparoscopy History of delivery Family History Mother Asthma Grandfather COPD (chronic obstructive pulmonary disease) Diabetes Social History adopted: No household members: spouse and children number of children: 1 current occupational status: employed current occupation: [employer] current occupational exposures/hazards: No pets and animals: Yes pets and animals: dog(s) history of recent travel: Yes ([place] - Beginning of Feb 2024) out of state: Yes out of country: No sexually active: Yes Smoking Status: Never smoker second hand exposure: No alcohol intake: current alcohol intake frequency: holidays/special occasions only details: not during substance use type: does not use well-balanced diet: daily or most days caffeine: Yes eating out: rarely or never during the past year weight has: remained stable what type of physical activity do you participate in: walking frequency: 3-4 times per week duration: 15-30 minutes/day jerome/presybeterian: None seatbelt use: always do you feel safe at home: Yes additional social history: : Boubacar grullon History 3 Elective abortions Hx Para 1 Spontaneous abortions 1 Hx # Term Pregnancies Ectopic pregnancies Hx # Pregnancies Multiple births # of living children 1 Past Pregnancies Del. Date Name GA/Weeks Outcome Route Bth Weight Infant Gen Labor Lgth Anesthesia Del Locatn Provider FOB 07/14/22 Maeli 39 live - full term 8lbs 6oz Female epidural Darek Hamlin 06/08/23 6 molar Delivery Date: 07/14/22 Last Updated by: Marcela Patrick RN Csec d/t stuck in canal & mec aspirate - NICU x6days Delivery Date: 06/08/23 Last Updated by: Marcela Patrick RN D&C @ about 8weeks HPI 39wk ob Details: JERMAIN GERARD is a 24 year old who presents for routine OB visit. OB Visit NATAN Calculator Estimated Delivery Date Method Current WG Current Estimate 10/23/24 LMP (Certain) 39w 0d Other Estimates 10/25/24 Ultrasound #1 38w 5d Expected Delivery Route/Plan wants to try patient counseled regarding risks/benefits of trial of labor versus repeat . ACOG/uptodate education given to patient. 65 % likelihood of success per calculator TOLAC consent form signed: [] Specific Issue/Plans Covid status: [] Flu vaccine: [] Tdap vaccine: declined Rhogam: NA LARC form signed: yes Problem list reviewed and updated with the most current plan of care details and appropriate orders placed. Relevant counseling for the gestational age provided. Continue routine care and follow up unless otherwise noted in visit notes/problem list details Initial Weight: 192 lb Date -?-?-?-?-?-?-?-?-?-?-?-?- EGA Weight BP Urine Prot -?-?-?-?-?-?-?-?-?-?-?-?- Glucose FHR FuHt Pres Dilation -?-?-?-?-?-?-?-?-?-?-?-?- Effaced St Visit Note 03/16/24 -?-?-?-?-?-?-?-?-?-?-?-?- 8w 3d 192 lb 6 oz (+6 oz) 119/79 -?-?-?-?-?-?-?-?-?-?-?-?- 165 -?-?-?-?-?-?-?-?-?-?-?-?- JV- CRL consiste nt with first ultrasound. desires NIPT. will return in 2 weeks to do all labs. 04/13/24 -?-?--?-?-?-?-?-?-?-?-?-?- 12w 3d 193 lb 6 oz (+1 lb 6 oz) 118/84 Negative -?-?-?-?-?-?-?-?-?-?-?-?- Negative 168 -?-?-?-?-?-?-?-?-?-?-?-?- KW-no vb/crampin g. US ordered. 05/09/24 -?-?-?-?-?-?-?-?-?-?-?-?- 16w 1d 196 lb 6 oz (+4 lb 6 oz) 112/76 Negative -?--?-?-?-?-?-?-?-?-?-?-?- Negative 152 -?-?-?-?-?-?-?-?-?-?-?-?- MH-No VB. Nausea persists but not daily. 06/08/24 -?-?-?-?-?-?-?-?-?-?-?-?- 20w 3d 204 lb 2 oz (+12 lb 2 oz) 107/74 Negative -?-?-?-?-?-?-?-?-?-?-?-?- Negative 145 -?-?-?-?-?-?-?-?-?-?-?-?- SM- no vb lof go od fm nor euglar ctx 07/04/24 -?-?-?-?-?-?-?-?-?-?-?-?- 24w 1d 209 lb 8 oz (+17 lb 8 oz) 110/76 Negative -?-?-?-?-?-?-?-?-?-?-?-?- Negative 137 25 -?-?-?-?-?-?-?-?-?-?-?-?- JV- no lof, vagi nal bleeding, and ++ fm. glucola next visit. declines tdap. 07/30/24 -?-?-?-?-?-?-?-?-?-?-?-?- 27w 6d 216 lb (+24 lb) 118/80 Negative -?-?-?-?-?-?-?-?-?-?-?-?- Negative 151 27 -?-?-?-?-?-?-?-?-?-?-?-?- MH-No VB, LOF.Go od Fm. 28 wk labs pending. Larc 08/15/24 -?-?-?-?-?-?-?-?-?-?-?-?- 30w 1d 214 lb 6 oz (+22 lb 6 oz) 109/77 Trace -?-?-?-?-?-?-?-?--?-?-?-?- Negative 160 31 -?-?-?-?-?-?-?-?-?-?-?-?- KW- no vb/lof/ct x. good fm desires and would like to go to 41 weeks gestation. C/S records requested but according to pt was due to malposition at [place]. Pushed for 2 hours and was OP. 08/28/24 -?-?-?-?-?-?-?-?-?-?-?-?- 32w 0d 218 lb 4 oz (+26 lb 4 oz) 115/78 Negative -?-?-?-?-?-?-?-?-?-?-?-?- Negative 147 33 -?-?-?-?-?-?-?-?-?-?-?-?- MH-No VB, LOF. G ood FM. 09/11/24 -?-?-?-?-?-?-?-?-?--?-?-?- 34w 0d 218 lb 1 oz (+26 lb 1 oz) 118/76 Negative -?-?-?-?-?-?-?-?-?-?-?-?- Negative 135 34 -?-?-?-?-?-?-?-?-?-?-?-?- JV- discussed TO LAC and risks vs benefits. does not appear that she was a failure to progress. was taken to surgery after 1.5 hrs of pushing and developed tachycardia. both mom and baby ended up in ICU after for treatment of sepsis. understands risks. will bring back tolac consent to next visit. 09/24/24 -?-?-?-?-?-?-?-?-?-?-?-?- 35w 6d 217 lb 5 oz (+25 lb 5 oz) 119/81 Negative -?-?-?-?-?-?-?-?-?-?-?-?- Negative 130 36 Cephalic 1 -?-?-?-?-?-?-?-?-?-?-?-?- 30 -3 KW- no vb/ lof/ctx. good fm. GSB today. no concerns. consent returned 10/02/24 -?-?-?-?-?-?-?-?-?-?-?-?- 37w 0d 222 lb 4 oz (+30 lb 4 oz) 122/84 Negative -?-?-?-?-?-?-?-?-?-?-?-?- Negative 160 37 Cephalic 1 .5 -?-?-?-?-?-?-?-?-?-?-?-?- 30 -2 SM- no vb lof good fm n oregular ctx 10/11/24 -?--?-?-?-?-?-?-?-?-?-?-?- 38w 2d 219 lb 9 oz (+27 lb 9 oz) 112/79 Negative -?-?-?-?-?-?-?-?-?-?-?-?- Negative 150 39 Cephalic 3 -?-?-?-?-?-?-?-?-?-?-?-?- 40 -2 KW- no vb/ lof/ctx. good fm. preferences reviewed. minimal intervention. 10/16/24 -?-?-?-?-?-?-?-?-?-?-?-?- 39w 0d 220 lb 9 oz (+28 lb 9 oz) 123/77 Negative -?-?-?-?-?-?-?-?-?-?-?-?- Negative 150 40 Cephalic 3 -?-?-?-?-?-?-?-?-?-?-?-?- 40 -2 SM- no vb lof good fm n oreuglar ctx now 3 cm membranes swept ACOG First Trimester First Trimester: Discussed Second Trimester Second Trimester: Signs and Symptoms of Labor Third Trimester Third Trimester: Labor support person(s), Immediate Larc, Signs and Symptoms of Preeclampsia, Feeding No and Family Medical Leave or Disability Forms Results POC Urinalysis 2 Dip (Clinic) Office Urine Glucose Negative Last Edit by Linh Beck on 10/16/24 13:38 Office Urine Protein Negative Last Edit by Linhraf Beck on 10/16/24 13:38 Coding Level of Care Code OB Routine Diagnoses Obesity affecting in second trimester, unspecified obesity type O99.212 Obesity type affecting : unspecified obesity Trimester: second trimester History of delivery, currently O34.219 History of molar Z87.59 Supervision of high risk in third trimester O09.93 Trimester: third trimester 39 weeks gestation of Z3A.39 Weeks of gestation: 39 weeks History of asthma Z87.09 Assessment and Plan Assessment and Plan (1) Obesity affecting : Status: Acute Qualifiers: Obesity type affecting : unspecified obesity Trimester: second trimester Qualified Code(s): O99.212 - Obesity complicating , second trimester Comment: BMI 30.1, HgBA1C ordered w/NOB (2) History of delivery, currently : Status: Acute Comment: x1 (2022), Desires , c/s 10/30 JV. (3) History of molar : Status: Acute Comment: June 2023- after delivery draw hcg to zero (4) Supervision of high-risk : Status: Acute Qualifiers: Trimester: third trimester Qualified Code(s): O09.93 - Supervision of high risk , unspecified, third trimester Comment: PRR, , NATAN 10/23/24, girl (name secret) PC: Bora, : Boubacar (5) : Status: Acute Qualifiers: Weeks of gestation: 39 weeks Qualified Code(s): Z3A.39 - 39 weeks gestation of Comment: gbs neg, NIPT low risk (6) History of asthma: Status: Acute Comment: Childhood Orders: Orders POC Urinalysis 2 Dip (Clinic) Today 10/16/24 1420 <Electronically signed by Laya mendoza MD> Date _ Laya Pugh MD Cosigner Signature: Date (if applicable) CC: ~ [facility] Work Phone: [phone] [facility] [address] [place] [address], [address] [place] [address] OFFICE VISIT Date of Service: 10/11/24 MR#: [id number] Acct: [id number] Name: JERMAIN GERARD Rep #: [id number] : 2000 Provider: FABBY Valente Age/Sex: 24/F Location: [facility] Status: Signed Intake Vital Signs 08/28/24 14:41 10/02/24 14:55 10/11/24 07:57 Height 5 ft 5 in 5 ft 5 in 5 ft 5 in Weight: 219 lb 9 oz BMI 36.5 BP 112/79 Intake Visit Reasons: 38wk ob *trying for Chief Complaint: 38wk OB Vp Scientific Required: No Is patient in pain?: No Allergies No Known Allergies Allergy (Verified 10/11/24 07:55) Medications ?Medication ?Instructions ?Recorded ?Confirmed ?Type organ concentrates 80 mg capsule mg PO 08/02/23 History cholecalciferol (vitamin D3) 10 10 mcg PO QDAY 5 10/11/24 History mcg (400 unit) capsule docosahexaenoic acid 200 mg mg PO 03/02/24 10/11/24 Hi story capsule ( DHA) ferrous sulfate 325 mg (65 mg 325 mg PO QDAY 09/11/24 10/11/24 History iron) tablet Last Menstrual Period: 01/17/24 : No Have you fallen in the past year?: No PFSH PFSH Medical History Early stage of Partial hydatidiform mole Wears glasses Surgical History S/P D&C (status post dilation and curettage) H/O laparoscopy History of delivery Family History Mother Asthma Grandfather COPD (chronic obstructive pulmonary disease) Diabetes Social History adopted: No household members: spouse and children number of children: 1 current occupational status: 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 pets and animals: Yes pets and animals: dog(s) history of recent travel: Yes ([place] - Beginning of Feb 2024) out of state: Yes out of country: No sexually active: Yes Smoking Status: Never smoker second hand exposure: No alcohol intake: current alcohol intake frequency: holidays/special occasions only details: not during substance use type: does not use well-balanced diet: daily or most days caffeine: Yes eating out: rarely or never during the past year weight has: remained stable what type of physical activity do you participate in: walking frequency: 3-4 times per week duration: 15-30 minutes/day jerome/presybeterian: None seatbelt use: always do you feel safe at home: Yes additional social history: : Boubacar grullon History 3 Elective abortions Hx Para 1 Spontaneous abortions 1 Hx # Term Pregnancies Ectopic pregnancies Hx # Pregnancies Multiple births # of living children 1 Past Pregnancies Del. Date Name GA/Weeks Outcome Route Bth Weight Infant Gen Labor Lgth Anesthesia Del Locatn Provider FOB 07/14/22 Maeli 39 live - full term 8lbs 6oz Female epidural Darek Hamlin 06/08/23 6 molar Delivery Date: 07/14/22 Last Updated by: Marcela Patrick RN Csec d/t stuck in canal & mec aspirate - NICU x6days Delivery Date: 06/08/23 Last Updated by: Marcela Patrick RN D&C @ about 8weeks HPI 38wk ob *trying for Details: JERMAIN GERARD is a 24 year old who presents for routine OB visit. OB Visit NATAN Calculator Estimated Delivery Date Method Current WG Current Estimate 10/23/24 LMP (Certain) 38w 2d Other Estimates 10/25/24 Ultrasound #1 38w 0d Expected Delivery Route/Plan wants to try patient counseled regarding risks/benefits of trial of labor versus repeat . ACOG/uptodate education given to patient. 65 % likelihood of success per calculator TOLAC consent form signed: [] Specific Issue/Plans Covid status: [] Flu vaccine: [] Tdap vaccine: declined Rhogam: NA LARC form signed: yes Problem list reviewed and updated with the most current plan of care details and appropriate ordersplaced. Relevant counseling for the gestational age provided. Continue routine care and follow up unless otherwise noted in visit notes/problem list details Initial Weight: 192 lb Date -?-?-?-?-?-?-?-?-?-?-?-?- EGA Weight BP Urine Prot -?-?-?-?-?-?-?--?-?-?-?-?- Glucose FHR FuHt Pres Dilation -?-?-?-?-?-?-?-?-?-?-?-?- Effaced St Visit Note 03/16/24 -?-?-?-?-?-?-?-?-?-?-?-?- 8w 3d 192 lb 6 oz (+6 oz) 119/79 -?-?-?-?-?-?-?-?-?-?-?-?- 165 -?-?-?-?-?-?-?-?-?-?-?-?- JV- CRL consiste nt with first ultrasound. desires NIPT. will return in 2 weeks to do all labs. 04/13/24 -?-?-?-?-?-?-?-?-?-?-?-?- 12w 3d 193 lb 6 oz (+1 lb 6 oz) 118/84 Negative -?-?-?-?-?-?-?-?-?-?-?-?- Negative 168 -?-?-?-?-?-?-?-?-?-?-?-?- KW-no vb/ferdinandin g. US ordered. 05/09/24 -?-?-?-?-?-?-?-?-?-?-?-?- 16w 1d 196 lb 6 oz (+4 lb 6 oz) 112/76 Negative -?-?-?-?-?-?-?-?-?-?-?-?- Negative 152 -?-?-?-?-?-?-?-?-?-?-?-?- -No VB. Nausea persists but not daily. 06/08/24 -?-?-?-?-?-?-?-?-?-?-?-?- 20w 3d 204 lb 2 oz (+12 lb 2 oz) 107/74 Negative -?-?-?-?-?-?-?-?-?-?-?-?- Negative 145 -?-?-?-?-?-?-?-?-?-?-?-?- SM- no vb lof go od fm nor euglar ctx 07/04/24 -?-?-?-?-?-?-?-?-?-?-?-?- 24w 1d 209 lb 8 oz (+17 lb 8 oz) 110/76 Negative -?-?-?-?-?-?-?-?-?-?-?-?- Negative 137 25 -?-?-?-?-?-?-?-?-?-?-?-?- JV- no lof, vagi nal bleeding, and ++ fm. glucola next visit. declines tdap. 07/30/24 -?-?-?-?-?-?-?-?-?-?-?-?- 27w 6d 216 lb (+24 lb) 118/80 Negative -?-?-?-?-?-?-?-?-?-?-?-?- Negative 151 27 -?-?-?-?-?-?-?-?-?-?-?-?- -No VB, LOF.Go od Fm. 28 wk labs pending. Larc 08/15/24 -?-?-?-?-?-?-?-?-?-?-?-?- 30w 1d 214 lb 6 oz (+22 lb 6 oz) 109/77 Trace -?-?-?-?-?-?-?-?-?-?-?-?- Negative 160 31 -?-?-?-?-?-?-?-?-?-?-?-?- KW- no vb/lof/ct x. good fm desires and would like to go to 41 weeks gestation. C/S records requested but according to pt was due to malposition at [place]. Pushed for 2 hours and was OP. 08/28/24 -?-?-?-?-?-?-?-?-?-?-?-?- 32w 0d 218 lb 4 oz (+26 lb 4 oz) 115/78 Negative -?-?-?-?-?-?-?-?-?-?-?-?- Negative 147 33 -?-?-?-?-?-?-?-?-?-?-?-?- MH-No VB, LOF. G ood FM. 09/11/24 -?-?-?-?-?-?-?-?-?-?-?-?- 34w 0d 218 lb 1 oz (+26 lb 1 oz) 118/76 Negative -?-?-?-?-?-?-?-?-?-?-?-?- Negative 135 34 -?-?-?-?-?-?-?-?-?-?-?-?- JV- discussed TO LAC and risks vs benefits. does not appear that she was a failure to progress. was taken to surgery after 1.5 hrs of pushing and developed tachycardia.both mom and baby ended up in ICU after for treatment of sepsis. understands risks. will bring backtolac consent to next visit. 09/24/24 -?-?-?-?-?-?-?-?-?-?-?-?- 35w 6d 217 lb 5 oz (+25 lb 5 oz) 119/81 Negative -?-?-?-?-?-?-?-?-?-?-?-?- Negative 130 36 Cephalic 1 -?-?-?-?-?-?-?-?-?-?-?-?- 30 -3 KW- no vb/ lof/ctx. good fm. GSB today. no concerns. consent returned 10/02/24 -?-?-?-?-?-?-?-?-?-?-?-?- 37w 0d 222 lb 4 oz (+30 lb 4 oz) 122/84 Negative -?-?-?-?-?-?-?-?-?-?-?-?- Negative 160 37 Cephalic 1 .5 -?-?-?-?-?-?-?-?-?-?-?-?- 30 -2 SM- no vb lof good fm n oregular ctx 10/11/24 -?-?-?-?-?-?-?-?-?-?-?-?- 38w 2d 219 lb 9 oz (+27 lb 9 oz) 112/79 Negative -?-?-?-?-?-?-?-?-?-?-?-?- Negative 150 39 Cephalic 3 -?-?-?-?-?-?-?-?-?-?-?-?- 40 -2 KW- no vb/ lof/ctx. good fm. preferences reviewed. minimal intervention. ACOG First Trimester First Trimester: Discussed Second Trimester Second Trimester: Signs and Symptoms of Labor Third Trimester Third Trimester: Labor support person(s), Immediate Larc, Signs and Symptoms of Preeclampsia, Infant Feeding No and Family Medical Leave or Disability Forms ROS Const Reports system reviewed and no additional complaints, except as documented Eyes Reports system reviewed and no additional complaints, except as documented ENT Reports system reviewed and no additional complaints, except as documented Card Reports system reviewed and no additional complaints, except as documented Resp Reports system reviewed and no additional complaints, except as documented GI Reports system reviewed and no additional complaints, except as documented, Denies nausea and Denies vomiting Reports system reviewed and no additional complaints, except as documented Musc Reports system reviewed and no additional complaints, except as documented Skin/Breast Reports system reviewed and no additional complaints, except as documented Neuro Yes system reviewed and no additional complaints, except as documented Psych Reports system reviewed and no additional complaints, except as documented Endo Reports system reviewed and no additional complaints, except as documented Nixon/Lymph Reports system reviewed and no additional complaints, except as documented Aller/Immun Reports system reviewed and no additional complaints, except as documented Exam Const General: cooperative, healthy appearing and no acute distress Orientation: alert, awake and oriented x3 Neck Neck: normal visual inspection and full ROM Resp Effort & Inspection: normal respiratory effort, able to speak in complete sentences and symmetric chest movement GI Inspection: normal to inspection Palpation: soft and other Other: gravid Skin General: no rashes or lesions noted Neuro General: patient alert, patient awake and patient oriented x3 Cognition: normal cognition Speech: speech normal Gait: normal gait Motor: muscle tone normal throughout Extrem General: normal to inspection and full ROM Psych Appearance: grossly normal Mental Status: mental status grossly normal Mood: congruent mood Affect: normal affect Speech and Movement: speech and movement normal Attitude: cooperative Thought Process: normal Thought Content: normal Judgment: judgment good Results POC Urinalysis 2 Dip (Clinic) Office Urine Glucose Negative Last Edit by Rosalie Arteaga on 10/11/24 08:02 Office Urine Protein Negative Last Edit by Rosalie Arteaga on 10/11/24 08:02 Coding Level of Care Code OB Routine Diagnoses Obesity affecting in second trimester, unspecified obesity type O99.212 Obesity type affecting : unspecified obesity Trimester: second trimester History of delivery, currently O34.219 History of molar Z87.59 Supervision of high risk in third trimester O09.93 Trimester: third trimester 38 weeks gestation of Z3A.38 Weeks of gestation: 38 weeks History of asthma Z87.09 Assessment and Plan Assessment and Plan (1) Obesity affecting : Status: Acute Qualifiers: Obesity type affecting : unspecified obesity Trimester: second trimester Qualified Code(s): O99.212 - Obesity complicating , second trimester Comment: BMI 30.1, HgBA1C ordered w/NOB (2) History of delivery, currently : Status: Acute Comment: x1 (2022), Desires , c/s 10/30 JV. (3) History of molar : Status: Acute Comment: June 2023- after delivery draw hcg to zero (4) Supervision of high-risk : Status: Acute Qualifiers: Trimester: third trimester Qualified Code(s): O09.93 - Supervision of high risk , unspecified, third trimester Comment: PRR, , NATAN 10/23/24, girl (name secret) PC: Bora, : Boubacar (5) : Status: Acute Qualifiers: Weeks of gestation: 38 weeks Qualified Code(s): Z3A.38 - 38 weeks gestation of Comment: gbs neg, NIPT low risk (6) History of asthma: Status: Acute Comment: Childhood Orders: Orders POC Urinalysis 2 Dip (Clinic) Today Plan Details Additional Comments: ACOG trimester education reviewed and updated. see problem list details for updated plan management information and see below for orders placed atthis visit. GA appropriate handout given. Clinical Quality Measures Falls Risk Screening/Assistive Devices Have you fallen in the past year?: No 10/11/24 0815 s CNM> Date _ Jorge Roblesignpratibha Signature: Date (if applicable) CC: ~ [facility]08-26-2025 [facility] [address] [place] [address], [address] [place] [address] OFFICE VISIT Date of Service: 10/02/24 MR#: [id number] Acct: [id number] Name: JERMAIN GERARD Rep #: [id number] : 2000 Provider: Dr. Ricco Pugh MD Age/Sex: 24/F Location: [facility] Status: Signed Intake Vital Signs 08/28/24 14:41 09/24/24 14:08 10/02/24 14:55 Height 5 ft 5 in 5 ft 5 in 5 ft 5 in Weight: 222 lb 4 oz BMI 37.0 BP 122/84 H Intake Visit Reasons: 37wk ob Vp Scientific Required: No Is patient in pain?: No Allergies No Known Allergies Allergy (Verified 10/02/24 15:04) Medications ?Medication ?Instructions ?Recorded ?Confirmed ?Type organ concentrates 80 mg capsule mg PO 08/02/23 History cholecalciferol (vitamin D3) 10 10 mcg PO QDAY 5 10/02/24 History mcg (400 unit) capsule docosahexaenoic acid 200 mg mg PO 03/02/24 10/02/24 Hi story capsule ( DHA) ferrous sulfate 325 mg (65 mg 325 mg PO QDAY 09/11/24 10/02/24 History iron) tablet Last Menstrual Period: 01/17/24 Zika: Zika virus screening: Negative : No PFSH PFSH Medical History Early stage of Partial hydatidiform mole Wears glasses Surgical History S/P D&C (status post dilation and curettage) H/O laparoscopy History of delivery Family History Mother Asthma Grandfather COPD (chronic obstructive pulmonary disease) Diabetes Social History adopted: No household members: spouse and children number of children: 1 current occupational status: employed 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/hazards: No pets and animals: Yes pets and animals: dog(s) history of recent travel: Yes ([place] - Beginning of Feb 2024) out of state: Yes out of country: No sexually active: Yes Smoking Status: Never smoker second hand exposure: No alcohol intake: current alcohol intake frequency: holidays/special occasions only details: not during substance use type: does not use well-balanced diet: daily or most days caffeine: Yes eating out: rarely or never during the past year weight has: remained stable what type of physical activity do you participate in: walking frequency: 3-4 times per week duration: 15-30 minutes/day jerome/presybeterian: None seatbelt use: always do you feel safe at home: Yes additional social history: : Boubacar grullon History 3 Elective abortions Hx Para 1 Spontaneous abortions 1 Hx # Term Pregnancies Ectopic pregnancies Hx # Pregnancies Multiple births # of living children 1 Past Pregnancies Del. Date Name GA/Weeks Outcome Route Bth Weight Infant Gen Labor Lgth Anesthesia Del Locatn Provider FOB 07/14/22 Maeli 39 live - full term 8lbs 6oz Female epidural Darek Hamlin 06/08/23 6 molar Delivery Date: 07/14/22 Last Updated by: Marcela Patrick RN Csec d/t stuck in canal & mec aspirate - NICU x6days Delivery Date: 06/08/23 Last Updated by: Marcela Patrick RN D&C @ about 8weeks HPI 37wk ob Details: JERMAIN GERARD is a 24 year old who presents for routine OB visit. OB Visit NATAN Calculator Estimated Delivery Date Method Current WG Current Estimate 10/23/24 LMP (Certain) 37w 0d Other Estimates 10/25/24 Ultrasound #1 36w 5d Expected Delivery Route/Plan wants to try patient counseled regarding risks/benefits of trial of labor versus repeat . ACOG/uptodate education given to patient. 65 % likelihood of success per calculator TOLAC consent form signed: [] Specific Issue/Plans Covid status: [] Flu vaccine: [] Tdap vaccine: declined Rhogam: NA LARC form signed: yes Problem list reviewed and updated with the most current plan of care details and appropriate ordersplaced. Relevant counseling for the gestational age provided. Continue routine care and follow up unless otherwise noted in visit notes/problem list details Initial Weight: 192 lb Date -?-?-?-?-?-?-?-?-?-?-?-?- EGA Weight BP Urine Prot -?-?-?-?-?-?-?-?-?-?-?-?- Glucose FHR FuHt Pres Dilation -?-?-?-?-?-?-?-?-?-?-?-?- Effaced St Visit Note 03/16/24 -?-?-?-?-?-?-?-?-?-?-?-?- 8w 3d 192 lb 6 oz (+6 oz) 119/79 -?-?-?-?-?-?-?-?-?-?-?-?- 165 -?-?-?-?-?-?-?-?-?-?-?-?- JV- CRL consiste nt with first ultrasound. desires NIPT. will return in 2 weeks to do all labs. 04/13/24 -?-?-?-?-?-?-?-?-?-?-?-?- 12w 3d 193 lb 6 oz (+1 lb 6 oz) 118/84 Negative -?-?-?-?-?-?-?-?-?-?-?-?- Negative 168 -?-?-?-?-?-?-?-?-?-?-?-?- KW-no vb/zuri getachewFay US ordered. 05/09/24 -?-?-?-?-?-?-?-?-?-?-?-?- 16w 1d 196 lb 6 oz (+4 lb 6 oz) 112/76 Negative -?-?-?-?-?-?-?-?-?-?-?-?- Negative 152 -?-?-?-?-?-?-?-?-?-?-?-?- -No VB. Nausea persists but not daily. 06/08/24 -?-?-?-?-?-?-?-?-?-?-?-?- 20w 3d 204 lb 2 oz (+12 lb 2 oz) 107/74 Negative -?-?-?-?-?-?-?-?-?-?-?-?- Negative 145 -?-?-?-?-?-?-?-?-?-?-?-?- SM- no vb lof go od fm nor euglar ctx 07/04/24 -?-?-?-?-?-?-?-?-?-?-?-?- 24w 1d 209 lb 8 oz (+17 lb 8 oz) 110/76 Negative -?-?-?-?-?-?-?-?-?-?-?-?- Negative 137 25 -?-?-?-?-?-?-?-?-?-?-?-?- JV- no lof, vagi nal bleeding, and ++ fm. glucola next visit. declines tdap. 07/30/24 -?-?-?-?-?-?-?-?-?-?-?-?- 27w 6d 216 lb (+24 lb) 118/80 Negative -?-?-?-?-?-?-?-?-?-?-?-?- Negative 151 27 -?-?-?-?-?-?-?-?-?-?-?-?- MH-No VB, LOF.Go od Fm. 28 wk labs pending. Lar 08/15/24 -?-?-?-?-?-?-?-?-?-?-?-?- 30w 1d 214 lb 6 oz (+22 lb 6 oz) 109/77 Trace -?-?-?-?-?-?-?-?-?-?-?-?- Negative 160 31 -?-?-?-?-?-?-?-?-?-?-?-?- KW- no vb/lof/ct x. good fm desires and would like to go to 41 weeks gestation. C/S records requested but according to pt was due to malposition at [place]. Pushed for 2 hours and was OP. 08/28/24 -?-?-?-?-?-?-?-?-?-?-?-?- 32w 0d 218 lb 4 oz (+26 lb 4 oz) 115/78 Negative -?-?-?-?-?-?-?-?-?-?-?-?- Negative 147 33 -?-?-?-?-?-?-?-?-?-?-?-?- MH-No VB, LOF. G ood FM. 09/11/24 -?-?-?-?-?-?-?-?-?-?-?-?- 34w 0d 218 lb 1 oz (+26 lb 1 oz) 118/76 Negative -?-?-?-?-?-?-?-?-?-?-?-?- Negative 135 34 -?-?-?-?-?-?-?-?-?-?-?-?- JV- discussed TO LAC and risks vs benefits. does not appear that she was a failure to progress. was taken to surgery after 1.5 hrs of pushing and developed tachycardia.both mom and baby ended up in ICU after for treatment of sepsis. understands risks. will bring backtolac consent to next visit. 09/24/24 -?-?-?-?-?-?-?-?-?-?-?-?- 35w 6d 217 lb 5 oz (+25 lb 5 oz) 119/81 Negative -?-?-?-?-?-?-?-?-?-?-?-?- Negative 130 36 Cephalic 1 -?-?-?-?-?-?-?-?-?-?-?-?- 30 -3 KW- no vb/ lof/ctx. good fm. GSB today. no concerns. consent returned 10/02/24 -?-?-?-?-?-?-?-?-?-?-?-?- 37w 0d 222 lb 4 oz (+30 lb 4 oz) 122/84 Negative -?-?-?-?-?-?-?-?-?-?-?-?- Negative 160 37 Cephalic 1 .5 -?-?-?-?-?-?-?-?-?-?-?-?- 30 -2 SM- no vb lof good fm n oregular ctx ACOG First Trimester First Trimester: Discussed Second Trimester Second Trimester: Signs and Symptoms of Labor Third Trimester Third Trimester: Labor support person(s), Immediate Larc, Signs and Symptoms of Preeclampsia, Feeding No and Family Medical Leave or Disability Forms Results POC Urinalysis 2 Dip (Clinic) Office Urine Glucose Negative Last Edit by Linh Beck on 10/02/24 15:07 Office Urine Protein Negative Last Edit by Linh Beck on 10/02/24 15:07 Coding Level of Care Code OB Routine Diagnoses Obesity affecting in second trimester, unspecified obesity type O99.212 Obesity type affecting : unspecified obesity Trimester: second trimester History of delivery, currently O34.219 History of molar Z87.59 Supervision of high risk in third trimester O09.93 Trimester: third trimester 37 weeks gestation of Z3A.37 Weeks of gestation: 37 weeks History of asthma Z87.09 Assessment and Plan Assessment and Plan (1) Obesity affecting : Status: Acute Qualifiers: Obesity type affecting : unspecified obesity Trimester: second trimester Qualified Code(s): O99.212 - Obesity complicating , second trimester Comment: BMI 30.1, HgBA1C ordered w/NOB (2) History of delivery, currently : Status: Acute Comment: x1 (2022), Desires , c/s 10/30 JV. (3) History of molar : Status: Acute Comment: June 2023- after delivery draw hcg to zero (4) Supervision of high-risk : Status: Acute Qualifiers: Trimester: third trimester Qualified Code(s): O09.93 - Supervision of high risk , unspecified, third trimester Comment: PRR, , NATAN 10/23/24, girl (name secret) PC: Bora, : Boubacar (5) : Status: Acute Qualifiers: Weeks of gestation: 37 weeks Qualified Code(s): Z3A.37 - 37 weeks gestation of Comment: gbs neg, NIPT low risk (6) History of asthma: Status: Acute Comment: Childhood 10/02/24 1517 reji LOCKWOOD> Date _ Laya Pugh MD Cosigner Signature: Date (if applicable) CC: ~ [facility]08-26-2025 Progress note Author Laya Pugh [facility] Services Note Date/Time October 02, 2024 3: 17pm [facility] [address] [place] [address], [address] [place] [address] OFFICE VISIT Date of Service: 10/02/24 MR#: [id number] Acct: [id number] Name: JERMAIN GERARD Rep #: [id number] : 2000 Provider: Dr. Ricco Pugh MD Age/Sex: 24/F Location: [facility] Status: Signed Intake Vital Signs 08/28/24 14:41 09/24/24 14:08 10/02/24 14:55 Height 5 ft 5 in 5 ft 5 in 5 ft 5 in Weight: 222 lb 4 oz BMI 37.0 BP 122/84 H Intake Visit Reasons: 37wk ob Vp Scientific Required: No Is patient in pain?: No Allergies No Known Allergies Allergy (Verified 10/02/24 15:04) Medications ?Medication ?Instructions ?Recorded ?Confirmed ?Type organ concentrates 80 mg capsule mg PO 08/02/23 History cholecalciferol (vitamin D3) 10 10 mcg PO QDAY 5 10/02/24 History mcg (400 unit) capsule docosahexaenoic acid 200 mg mg PO 03/02/24 10/02/24 Hi story capsule ( DHA) ferrous sulfate 325 mg (65 mg 325 mg PO QDAY 09/11/24 10/02/24 History iron) tablet Last Menstrual Period: 01/17/24 Zika: Zika virus screening: Negative : No PFSH PFSH Medical History Early stage of Partial hydatidiform mole Wears glasses Surgical History S/P D&C (status post dilation and curettage) H/O laparoscopy History of delivery Family History Mother Asthma Grandfather COPD (chronic obstructive pulmonary disease) Diabetes Social History adopted: No household members: spouse and children number of children: 1 current occupational status: 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 pets and animals: Yes pets and animals: dog(s) history of recent travel: Yes ([place] - Beginning of Feb 2024) out of state: Yes out of country: No sexually active: Yes Smoking Status: Never smoker second hand exposure: No alcohol intake: current alcohol intake frequency: holidays/special occasions only details: not during substance use type: does not use well-balanced diet: daily or most days caffeine: Yes eating out: rarely or never during the past year weight has: remained stable what type of physical activity do you participate in: walking frequency: 3-4 times per week duration: 15-30 minutes/day jerome/presybeterian: None seatbelt use: always do you feel safe at home: Yes additional social history: : Boubacar grullon History 3 Elective abortions Hx Para 1 Spontaneous abortions 1 Hx # Term Pregnancies Ectopic pregnancies Hx # Pregnancies Multiple births # of living children 1 Past Pregnancies Del. Date Name GA/Weeks Outcome Route Bth Weight Gen Labor Lgth Anesthesia Del Locatn Provider FOB 07/14/22 Bora 39 live - full term 8lbs 6oz Female epidural Darek Hamlin 06/08/23 6 molar Delivery Date: 07/14/22 Last Updated by: Marcela Patrick RN Csec d/t stuck in canal & mec aspirate - NICU x6days Delivery Date: 06/08/23 Last Updated by: Marcela Patrick RN D&C @ about 8weeks HPI 37wk ob Details: JERMAIN GERARD is a 24 year old who presents for routine OB visit. OB Visit NATAN Calculator Estimated Delivery Date Method Current WG Current Estimate 10/23/24 LMP (Certain) 37w 0d Other Estimates 10/25/24 Ultrasound #1 36w 5d Expected Delivery Route/Plan wants to try patient counseled regarding risks/benefits of trial of labor versus repeat . ACOG/uptodate education given to patient. 65 % likelihood of success per calculator TOLAC consent form signed: [] Specific Issue/Plans Covid status: [] Flu vaccine: [] Tdap vaccine: declined Rhogam: NA LARC form signed: yes Problem list reviewed and updated with the most current plan of care details and appropriate orders placed. Relevant counseling for the gestational age provided. Continue routine care and follow up unless otherwise noted in visit notes/problem list details Initial Weight: 192 lb Date -?-?-?-?-?-?-?-?-?-?-?-?- EGA Weight BP Urine Prot -?-?-?-?-?-?-?-?-?-?-?-?- Glucose FHR FuHt Pres Dilation -?-?-?-?-?-?-?-?-?-?-?-?- Effaced St Visit Note 03/16/24 -?-?-?-?-?-?-?-?-?-?-?-?- 8w 3d 192 lb 6 oz (+6 oz) 119/79 -?-?-?-?-?-?-?-?-?-?-?-?- 165 -?-?-?-?-?-?-?-?-?-?-?-?- JV- CRL consiste nt with first ultrasound. desires NIPT. will return in 2 weeks to do all labs. 04/13/24 -?-?-?-?-?-?-?-?-?-?-?-?- 12w 3d 193 lb 6 oz (+1 lb 6 oz) 118/84 Negative -?-?-?-?-?-?-?-?-?-?-?-?- Negative 168 -?-?-?-?-?-?-?-?-?-?-?-?- KW-no vb/crampin getachew. US ordered. 05/09/24 -?-?-?-?-?-?-?-?-?-?-?-?- 16w 1d 196 lb 6 oz (+4 lb 6 oz) 112/76 Negative -?-?-?-?-?-?-?-?-?-?-?-?- Negative 152 -?-?-?-?-?-?-?-?-?-?-?-?- MH-No VB. Nausea persists but not daily. 06/08/24 -?-?-?-?-?-?-?-?-?-?-?-?- 20w 3d 204 lb 2 oz (+12 lb 2 oz) 107/74 Negative -?-?-?-?-?-?-?-?-?-?-?-?- Negative 145 -?-?-?-?-?-?-?-?-?-?-?-?- SM- no vb lof go od fm nor euglar ctx 07/04/24 -?-?-?-?-?-?-?-?-?-?-?-?- 24w 1d 209 lb 8 oz (+17 lb 8 oz) 110/76 Negative -?-?-?-?-?-?-?-?-?-?-?-?- Negative 137 25 -?-?-?-?-?-?-?-?-?-?-?-?- JV- no lof, vagi nal bleeding, and ++ fm. glucola next visit. declines tdap. 07/30/24 -?-?-?-?-?-?-?-?-?-?-?-?- 27w 6d 216 lb (+24 lb) 118/80 Negative -?-?-?-?-?-?-?-?-?-?-?-?- Negative 151 27 -?-?-?-?-?-?-?-?-?-?-?-?- -No VB, LOF.Go od Fm. 28 wk labs pending. Larc 08/15/24 -?-?-?-?-?-?-?-?-?-?-?-?- 30w 1d 214 lb 6 oz (+22 lb 6 oz) 109/77 Trace -?-?-?-?-?-?-?-?-?-?-?-?- Negative 160 31 -?-?-?-?-?-?-?-?-?-?-?-?- KW- no vb/lof/ct x. good fm desires and would like to go to 41 weeks gestation. C/S records requested but according to pt was due to malposition at [place]. Pushed for 2 hours and was OP. 08/28/24 -?-?-?-?-?-?-?-?-?-?-?-?- 32w 0d 218 lb 4 oz (+26 lb 4 oz) 115/78 Negative -?-?-?-?-?-?-?-?-?-?-?-?- Negative 147 33 -?-?-?-?-?-?-?-?-?-?-?-?- -No VB, LOF. G ood FM. 09/11/24 -?-?-?-?-?-?-?-?-?-?-?-?- 34w 0d 218 lb 1 oz (+26 lb 1 oz) 118/76 Negative -?-?-?-?-?-?-?-?-?-?-?-?- Negative 135 34 -?-?-?-?-?-?-?-?-?-?-?-?- JV- discussed TO LAC and risks vs benefits. does not appear that she was a failure to progress. was taken to surgery after 1.5 hrs of pushing and developed tachycardia. both mom and baby ended up in ICU after for treatment of sepsis. understands risks. will bring back tolac consent to next visit. 09/24/24 -?-?-?-?-?-?-?-?-?-?-?-?- 35w 6d 217 lb 5 oz (+25 lb 5 oz) 119/81 Negative -?-?-?-?-?-?-?-?-?-?-?-?- Negative 130 36 Cephalic 1 -?-?-?-?-?-?-?-?-?-?-?-?- 30 -3 KW- no vb/ lof/ctx. good fm. GSB today. no concerns. consent returned 10/02/24 -?-?-?-?-?-?-?-?-?-?-?-?- 37w 0d 222 lb 4 oz (+30 lb 4 oz) 122/84 Negative -?-?-?-?-?-?-?-?-?-?-?-?- Negative 160 37 Cephalic 1 .5 -?-?-?-?-?-?-?-?-?-?-?-?- 30 -2 SM- no vb lof good fm n oregular ctx ACOG First Trimester First Trimester: Discussed Second Trimester Second Trimester: Signs and Symptoms of Labor Third Trimester Third Trimester: Labor support person(s), Immediate Larc, Signs and Symptoms of Preeclampsia, Feeding No and Family Medical Leave or Disability Forms Results POC Urinalysis 2 Dip (Clinic) Office Urine Glucose Negative Last Edit by Linh Beck on 10/02/24 15:07 Office Urine Protein Negative Last Edit by Linh Beck on 10/02/24 15:07 Coding Level of Care Code OB Routine Diagnoses Obesity affecting in second trimester, unspecified obesity type O99.212 Obesity type affecting : unspecified obesity Trimester: second trimester History of delivery, currently O34.219 History of molar Z87.59 Supervision of high risk in third trimester O09.93 Trimester: third trimester 37 weeks gestation of Z3A.37 Weeks of gestation: 37 weeks History of asthma Z87.09 Assessment and Plan Assessment and Plan (1) Obesity affecting : Status: Acute Qualifiers: Obesity type affecting : unspecified obesity Trimester: second trimester Qualified Code(s): O99.212 - Obesity complicating , second trimester Comment: BMI 30.1, HgBA1C ordered w/NOB (2) History of delivery, currently : Status: Acute Comment: x1 (2022), Desires , c/s 10/30 JV. (3) History of molar : Status: Acute Comment: June 2023- after delivery draw hcg to zero (4) Supervision of high-risk : Status: Acute Qualifiers: Trimester: third trimester Qualified Code(s): O09.93 - Supervision of high risk , unspecified, third trimester Comment: PRR, , NATAN 10/23/24, girl (name secret) PC: Jose Dcolumba, : Boubacar (5) : Status: Acute Qualifiers: Weeks of gestation: 37 weeks Qualified Code(s): Z3A.37 - 37 weeks gestation of Comment: gbs neg, NIPT low risk (6) History of asthma: Status: Acute Comment: Childhood 10/02/24 2757 <Electronically signed by Laya mendoza MD> Date _ [facility] Signature: Date (if applicable) CC: ~ [facility] Work Phone: [phone] Progress [facility] [address] [place] [address], [address] [place] [address] OFFICE VISIT Date of Service: 09/24/24 MR#: [id number] Acct: [id number] Name: DEQUANJERMAIN LUIS Rep #: [id number] : 2000 Provider: FABBY Valente Age/Sex: 24/F Location: [facility] Status: Signed Intake Vital Signs 07/30/24 15:24 09/11/24 09:34 09/24/24 14:08 Height 5 ft 5 in 5 ft 5 in 5 ft 5 in Weight: 217 lb 5 oz BMI 36.1 BP 119/81 H Intake Visit Reasons: 36 wk ob Chief Complaint: 36wk OB Vp Scientific Required: No Is patient in pain?: No Allergies No Known Allergies Allergy (Verified 09/24/24 14:07) Medications ?Medication ?Instructions ?Recorded ?Confirmed ?Type organ concentrates 80 mg capsule mg PO 08/02/23 History cholecalciferol (vitamin D3) 10 10 mcg PO QDAY 5 09/24/24 History mcg (400 unit) capsule docosahexaenoic acid 200 mg mg PO 03/02/24 09/24/24 Hi story capsule ( DHA) ferrous sulfate 325 mg (65 mg 325 mg PO QDAY 09/11/24 09/24/24 History iron) tablet Last Menstrual Period: 01/17/24 : No Have you fallen in the past year?: No PFSH PFSH Medical History Early stage of Partial hydatidiform mole Wears glasses Surgical History S/P D&C (status post dilation and curettage) H/O laparoscopy History of delivery Family History Mother Asthma Grandfather COPD (chronic obstructive pulmonary disease) Diabetes Social History adopted: No household members: spouse and children number of children: 1 current occupational status: 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 pets and animals: Yes pets and animals: dog(s) history of recent travel: Yes ([place] - Beginning of Feb 2024) out of state: Yes out of country: No sexually active: Yes Smoking Status: Never smoker second hand exposure: No alcohol intake: current alcohol intake frequency: holidays/special occasions only details: not during substance use type: does not use well-balanced diet: daily or most days caffeine: Yes eating out: rarely or never during the past year weight has: remained stable what type of physical activity do you participate in: walking frequency: 3-4 times per week duration: 15-30 minutes/day jerome/presybeterian: None seatbelt use: always do you feel safe at home: Yes additional social history: : Boubacar grullon History 3 Elective abortions Hx Para 1 Spontaneous abortions 1 Hx # Term Pregnancies Ectopic pregnancies Hx # Pregnancies Multiple births # of living children 1 Past Pregnancies Del. Date Name GA/Weeks Outcome Route Bth Weight Infant Gen Labor Lgth Anesthesia Del Locatn Provider FOB 07/14/22 [place] 39 live - full term 8lbs 6oz Female epidural Darekjustine Hamlin 06/08/23 6 molar Delivery Date: 07/14/22 Last Updated by: Marcela Patrick RN Csec d/t stuck in canal & mec aspirate - NICU x6days Delivery Date: 06/08/23 Last Updated by: Marcela Patrick RN D&C @ about 8weeks HPI 36 wk ob Details: JERMAIN GERARD is a 24 year old who presents for routine OB visit. OB Visit NATAN Calculator Estimated Delivery Date Method Current WG Current Estimate 10/23/24 LMP (Certain) 35w 6d Other Estimates 10/25/24 Ultrasound #1 35w 4d Expected Delivery Route/Plan wants to try patient counseled regarding risks/benefits of trial of labor versus repeat . ACOG/uptodate education given to patient. 65 % likelihood of success per calculator TOLAC consent form signed: [] Specific Issue/Plans Covid status: [] Flu vaccine: [] Tdap vaccine: [] Rhogam: NA LARC form signed: yes Problem list reviewed and updated with the most current plan of care details and appropriate ordersplaced. Relevant counseling for the gestational age provided. Continue routine care and follow up unless otherwise noted in visit notes/problem list details Initial Weight: 192 lb Date -?-?-?-?-?-?--?-?-?-?-?-?- EGA Weight BP Urine Prot -?-?-?-?-?-?-?-?-?-?-?-?- Glucose FHR FuHt Pres Dilation -?-?-?-?-?-?-?-?-?-?-?-?- Effaced St Visit Note 03/16/24 -?-?-?-?-?-?-?-?-?-?-?-?- 8w 3d 192 lb 6 oz (+6 oz) 119/79 -?-?-?-?-?-?-?-?-?-?-?-?- 165 -?-?-?-?-?-?-?-?-?-?-?-?- JV- CRL consiste nt with first ultrasound. desires NIPT. will return in 2 weeks to do all labs. 04/13/24 -?-?-?-?-?-?-?-?-?-?-?-?- 12w 3d 193 lb 6 oz (+1 lb 6 oz) 118/84 Negative -?-?-?-?-?-?-?-?-?-?-?-?- Negative 168 -?-?-?-?-?-?-?-?-?-?-?-?- KW-no vb/crampin g. US ordered. 05/09/24 -?-?-?-?-?-?-?-?-?-?-?-?- 16w 1d 196 lb 6 oz (+4 lb 6 oz) 112/76 Negative -?-?-?-?-?-?-?-?-?-?-?-?- Negative 152 -?-?-?-?-?-?-?-?-?-?-?-?- MH-No VB. Nausea persists but not daily. 06/08/24 -?-?-?-?-?--?-?-?-?-?-?-?- 20w 3d 204 lb 2 oz (+12 lb 2 oz) 107/74 Negative -?-?-?-?-?-?-?-?-?-?-?-?- Negative 145 -?-?-?-?-?-?-?-?-?-?-?-?- SM- no vb lof go od fm nor euglar ctx 07/04/24 -?-?-?-?-?-?-?-?-?-?-?-?- 24w 1d 209 lb 8 oz (+17 lb 8 oz) 110/76 Negative -?-?-?-?-?-?-?-?-?-?-?-?- Negative 137 25 -?-?-?-?-?-?-?-?-?-?-?-?- JV- no lof, vagi nal bleeding, and ++ fm. glucola next visit. declines tdap. 07/30/24 -?-?-?-?-?-?-?-?-?-?-?-?- 27w 6d 216 lb (+24 lb) 118/80 Negative -?-?-?-?-?-?-?-?-?-?-?-?- Negative 151 27 -?-?-?-?-?-?-?-?-?--?-?-?- MH-No VB, LOF.Go od Fm. 28 wk labs pending. Larc 08/15/24 -?-?-?-?-?-?-?-?-?-?-?-?- 30w 1d 214 lb 6 oz (+22 lb 6 oz) 109/77 Trace -?-?-?-?-?-?-?-?-?-?-?-?- Negative 160 31 -?-?-?-?-?-?-?-?-?-?-?-?- KW- no vb/lof/ct x. good fm [facility] requested but according to pt was due to malposition at [place]. Pushed for 2 hours and was OP. 08/28/24 -?-?-?-?-?-?-?-?-?-?-?-?- 32w 0d 218 lb 4 oz (+26 lb 4 oz) 115/78 Negative -?-?-?-?-?-?-?-?-?-?-?-?- Negative 147 33 -?-?-?-?-?-?-?-?-?-?-?-?- MH-No VB, LOF. G ood FM. 09/11/24 -?-?-?-?-?-?-?-?-?-?-?-?- 34w 0d 218 lb 1 oz (+26 lb 1 oz) 118/76 Negative -?-?-?-?-?-?-?-?-?-?-?-?- Negative 135 34 -?-?-?-?-?-?-?-?-?-?-?-?- JV- discussed TO LAC and risks vs benefits. does not appear that she was a failure to progress. was taken to surgery after 1.5 hrs of pushing and developed tachycardia.both mom and baby ended up in ICU after for treatment of sepsis. understands risks. will bring backtolac consent to next visit. 09/24/24 -?-?-?-?-?-?-?-?-?-?-?-?- 35w 6d 217 lb 5 oz (+25 lb 5 oz) 119/81 Negative -?-?-?-?-?-?-?-?-?-?-?-?- Negative 130 36 Cephalic 1 -?-?-?-?-?-?-?-?-?-?-?-?- 30 -3 KW- no vb/ lof/ctx. good fm. GSB today. no concerns. consent returned ACOG First Trimester First Trimester: Discussed Second Trimester Second Trimester: Signs and Symptoms of Labor Third Trimester Third Trimester: Labor support person(s), Immediate Larc, Signs and Symptoms of Preeclampsia, Feeding No and Family Medical Leave or Disability Forms ROS Const Reports system reviewed and no additional complaints, except as documented Eyes Reports system reviewed and no additional complaints, except as documented ENT Reports system reviewed and no additional complaints, except as documented Card Reports system reviewed and no additional complaints, except as documented Resp Reports system reviewed and no additional complaints, except as documented GI Reports system reviewed and no additional complaints, except as documented, Denies nausea and Denies vomiting Reports system reviewed and no additional complaints, except as documented Musc Reports system reviewed and no additional complaints, except as documented Skin/Breast Reports system reviewed and no additional complaints, except as documented Neuro Yes system reviewed and no additional complaints, except as documented Psych Reports system reviewed and no additional complaints, except as documented Endo Reports system reviewed and no additional complaints, except as documented Nixon/Lymph Reports system reviewed and no additional complaints, except as documented Aller/Immun Reports system reviewed and no additional complaints, except as documented Exam Const General: cooperative, healthy appearing and no acute distress Orientation: alert, awake and oriented x3 Neck Neck: normal visual inspection and full ROM Resp Effort & Inspection: normal respiratory effort, able to speak in complete sentences and symmetric chest movement GI Inspection: normal to inspection Palpation: soft and other Other: gravid Skin General: no rashes or lesions noted Neuro General: patient alert, patient awake and patient oriented x3 Cognition: normal cognition Speech: speech normal Gait: normal gait Motor: muscle tone normal throughout Extrem General: normal to inspection and full ROM Psych Appearance: grossly normal Mental Status: mental status grossly normal Mood: congruent mood Affect: normal affect Speech and Movement: speech and movement normal Attitude: cooperative Thought Process: normal Thought Content: normal Judgment: judgment good Results POC Urinalysis 2 Dip (Clinic) Office Urine Glucose Negative Last Edit by Rosalie Aretaga on 09/24/24 14:17 Office Urine Protein Negative Last Edit by Rosalie Arteaga on 09/24/24 14:17 Coding Level of Care Code OB Routine Diagnoses Obesity affecting in second trimester, unspecified obesity type O99.212 Obesity type affecting : unspecified obesity Trimester: second trimester History of delivery, currently O34.219 History of molar Z87.59 Supervision of high risk in third trimester O09.93 Trimester: third trimester 35 weeks gestation of Z3A.35 Weeks of gestation: 35 weeks History of asthma Z87.09 Assessment and Plan Assessment and Plan (1) Obesity affecting : Status: Acute Qualifiers: Obesity type affecting : unspecified obesity Trimester: second trimester Qualified Code(s): O99.212 - Obesity complicating , second trimester Comment: BMI 30.1, HgBA1C ordered w/NOB (2) History of delivery, currently : Status: Acute Comment: x1 (2022), Desires , c/s 10/30 JV. (3) History of molar : Status: Acute Comment: June 2023- after delivery draw hcg to zero (4) Supervision of high-risk : Status: Acute Qualifiers: Trimester: third trimester Qualified Code(s): O09.93 - Supervision of high risk , unspecified, third trimester Comment: PRR, , NATAN 10/23/24, PC: Bora, : Boubacar (5) : Status: Acute Qualifiers: Weeks of gestation: 35 weeks Qualified Code(s): Z3A.35 - 35 weeks gestation of Comment: NIPT low risk (6) History of asthma: Status: Acute Comment: Childhood Orders: Orders Culture, Group B Streptococcus Today O09.93 - Supervision of high risk , unspecified, third trimester, Z3A.35 - 35 weeks gestation of POC Urinalysis 2 Dip (Clinic) Today Plan Details Additional Comments: ACOG trimester education reviewed and updated. see problem list details for updated plan management information and see below for orders placed atthis visit. GA appropriate handout given. Clinical Quality Measures Falls Risk Screening/Assistive Devices Have you fallen in the past year?: No 09/24/24 1425 s CNM> Date _ Jorge Valente CNM Cosigner Signature: Date (if applicable) CC: ~ [facility]08-18-2025 Progress note Author Jorge Valente [facility] Services Note Date/Time September 24, 2024 2: 25pm [facility] [address], [address] [place] [address] OFFICE VISIT Date of Service: 09/24/24 MR#: [id number] Acct: [id number] Name: JERMAIN GERARD Rep #: [id number] : 2000 Provider: FABBY Valente Age/Sex: 24/F Location: [facility] Status: Signed Intake Vital Signs 07/30/24 15:24 09/11/24 09:34 09/24/24 14:08 Height 5 ft 5 in 5 ft 5 in 5 ft 5 in Weight: 217 lb 5 oz BMI 36.1 BP 119/81 H Intake Visit Reasons: 36 wk ob Chief Complaint: 36wk OB Vp Scientific Required: No Is patient in pain?: No Allergies No Known Allergies Allergy (Verified 09/24/24 14:07) Medications ?Medication ?Instructions ?Recorded ?Confirmed ?Type organ concentrates 80 mg capsule mg PO 08/02/23 History cholecalciferol (vitamin D3) 10 10 mcg PO QDAY 5 09/24/24 History mcg (400 unit) capsule docosahexaenoic acid 200 mg mg PO 03/02/24 09/24/24 Hi story capsule ( DHA) ferrous sulfate 325 mg (65 mg 325 mg PO QDAY 09/11/24 09/24/24 History iron) tablet Last Menstrual Period: 01/17/24 : No Have you fallen in the past year?: No PFSH PFSH Medical History Early stage of Partial hydatidiform mole Wears glasses Surgical History S/P D&C (status post dilation and curettage) H/O laparoscopy History of delivery Family History Mother Asthma Grandfather COPD (chronic obstructive pulmonary disease) Diabetes Social History adopted: No household members: spouse and children number of children: 1 current occupational status: 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 pets and animals: Yes pets and animals: dog(s) history of recent travel: Yes ([place] - Beginning of Feb 2024) out of state: Yes out of country: No sexually active: Yes Smoking Status: Never smoker second hand exposure: No alcohol intake: current alcohol intake frequency: holidays/special occasions only details: not during substance use type: does not use well-balanced diet: daily or most days caffeine: Yes eating out: rarely or never during the past year weight has: remained stable what type of physical activity do you participate in: walking frequency: 3-4 times per week duration: 15-30 minutes/day jerome/presybeterian: None seatbelt use: always do you feel safe at home: Yes additional social history: : Boubacar grullon History 3 Elective abortions Hx Para 1 Spontaneous abortions 1 Hx # Term Pregnancies Ectopic pregnancies Hx # Pregnancies Multiple births # of living children 1 Past Pregnancies Del. Date Name GA/Weeks Outcome Route Bth Weight Infant Gen Labor Lgth Anesthesia Del Locatn Provider FOB 07/14/22 Bora 39 live - full term 8lbs 6oz Female epidural Darek Hamlin 06/08/23 6 molar Delivery Date: 07/14/22 Last Updated by: Marcela Patrick RN [facility] d/t stuck in canal & mec aspirate - NICU x6days Delivery Date: 06/08/23 Last Updated by: Marcela Patrick RN D&C @ about 8weeks HPI 36 wk ob Details: JERMAIN GERARD is a 24 year old who presents for routine OB visit. OB Visit NATAN Calculator Estimated Delivery Date Method Current WG Current Estimate 10/23/24 LMP (Certain) 35w 6d Other Estimates 10/25/24 Ultrasound #1 35w 4d Expected Delivery Route/Plan wants to try patient counseled regarding risks/benefits of trial of labor versus repeat . ACOG/uptodate education given to patient. 65 % likelihood of success per calculator TOLAC consent form signed: [] Specific Issue/Plans Covid status: [] Flu vaccine: [] Tdap vaccine: [] Rhogam: NA LARC form signed: yes Problem list reviewed and updated with the most current plan of care details and appropriate orders placed. Relevant counseling for the gestational age provided. Continue routine care and follow up unless otherwise noted in visit notes/problem list details Initial Weight: 192 lb Date -?-?-?-?-?-?--?-?-?-?-?-?- EGA Weight BP Urine Prot -?-?-?-?-?-?-?-?-?-?-?-?- Glucose FHR FuHt Pres Dilation -?-?-?-?-?-?-?-?-?-?-?-?- Effaced St Visit Note 03/16/24 -?-?-?-?-?-?-?-?-?-?-?-?- 8w 3d 192 lb 6 oz (+6 oz) 119/79 -?-?-?-?-?-?-?-?-?-?-?-?- 165 -?-?-?-?-?-?-?-?-?-?-?-?- JV- CRL consiste nt with first ultrasound. desires NIPT. will return in 2 weeks to do all labs. 04/13/24 -?-?-?-?-?-?-?-?-?-?-?-?- 12w 3d 193 lb 6 oz (+1 lb 6 oz) 118/84 Negative -?-?-?-?-?-?-?-?-?-?-?-?- Negative 168 -?-?-?-?-?-?-?-?-?-?-?-?- KW-no vb/crampin g. US ordered. 05/09/24 -?-?-?-?-?-?-?-?-?-?-?-?- 16w 1d 196 lb 6 oz (+4 lb 6 oz) 112/76 Negative -?-?-?-?-?-?-?-?-?-?-?-?- Negative 152 -?-?-?-?-?-?-?-?-?-?-?-?- MH-No VB. Nausea persists but not daily. 06/08/24 -?-?-?-?-?--?-?-?-?-?-?-?- 20w 3d 204 lb 2 oz (+12 lb 2 oz) 107/74 Negative -?-?-?-?-?-?-?-?-?-?-?-?- Negative 145 -?-?-?-?-?-?-?-?-?-?-?-?- SM- no vb lof go od fm nor euglar ctx 07/04/24 -?-?-?-?-?-?-?-?-?-?-?-?- 24w 1d 209 lb 8 oz (+17 lb 8 oz) 110/76 Negative -?-?-?-?-?-?-?-?-?-?-?-?- Negative 137 25 -?-?-?-?-?-?-?-?-?-?-?-?- JV- no lof, vagi nal bleeding, and ++ fm. glucola next visit. declines tdap. 07/30/24 -?-?-?-?-?-?-?-?-?-?-?-?- 27w 6d 216 lb (+24 lb) 118/80 Negative -?-?-?-?-?-?-?-?-?-?-?-?- Negative 151 27 -?-?-?-?-?-?-?-?-?--?-?-?- MH-No VB, LOF.Go od Fm. 28 wk labs pending. [facility] 08/15/24 -?-?-?-?-?-?-?-?-?-?-?-?- 30w 1d 214 lb 6 oz (+22 lb 6 oz) 109/77 Trace -?-?-?-?-?-?-?-?-?-?-?-?- Negative 160 31 -?-?-?-?-?-?-?-?-?-?-?-?- KW- no vb/lof/ct x. good fm desires and would like to go to 41 weeks gest ation. C/S records requested but according to pt was due to malposition at [place]. Pushed for 2 hours and was OP. 08/28/24 -?-?-?-?-?-?-?-?-?-?-?-?- 32w 0d 218 lb 4 oz (+26 lb 4 oz) 115/78 Negative -?-?-?-?-?-?-?-?-?-?-?-?- Negative 147 33 -?-?-?-?-?-?-?-?-?-?-?-?- MH-No VB, LOF. G ood FM. 09/11/24 -?-?-?-?-?-?-?-?-?-?-?-?- 34w 0d 218 lb 1 oz (+26 lb 1 oz) 118/76 Negative -?-?-?-?-?-?-?-?-?-?-?-?- Negative 135 34 -?-?-?-?-?-?-?-?-?-?-?-?- JV- discussed TO LAC and risks vs benefits. does not appear that she was a failure to progress. was taken to surgery after 1.5 hrs of pushing and developed tachycardia. both mom and baby ended up in ICU after for treatment of sepsis. understands risks. will bring back tolac consent to next visit. 09/24/24 -?-?-?-?-?-?-?-?-?-?-?-?- 35w 6d 217 lb 5 oz (+25 lb 5 oz) 119/81 Negative -?-?-?-?-?-?-?-?-?-?-?-?- Negative 130 36 Cephalic 1 -?-?-?-?-?-?-?-?-?-?-?-?- 30 -3 KW- no vb/ lof/ctx. good fm. GSB today. no concerns. consent returned ACOG First Trimester First Trimester: Discussed Second Trimester Second Trimester: Signs and Symptoms of Labor Third Trimester Third Trimester: Labor support person(s), Immediate Larc, Signs and Symptoms of Preeclampsia, Infant Feeding No and Family Medical Leave or Disability Forms ROS Const Reports system reviewed and no additional complaints, except as documented Eyes Reports system reviewed and no additional complaints, except as documented ENT Reports system reviewed and no additional complaints, except as documented Card Reports system reviewed and no additional complaints, except as documented Resp Reports system reviewed and no additional complaints, except as documented GI Reports system reviewed and no additional complaints, except as documented, Denies nausea and Denies vomiting Reports system reviewed and no additional complaints, except as documented Musc Reports system reviewed and no additional complaints, except as documented Skin/Breast Reports system reviewed and no additional complaints, except as documented Neuro Yes system reviewed and no additional complaints, except as documented Psych Reports system reviewed and no additional complaints, except as documented Endo Reports system reviewed and no additional complaints, except as documented Nixon/Lymph Reports system reviewed and no additional complaints, except as documented Aller/Immun Reports system reviewed and no additional complaints, except as documented Exam Const General: cooperative, healthy appearing and no acute distress Orientation: alert, awake and oriented x3 Neck Neck: normal visual inspection and full ROM Resp Effort & Inspection: normal respiratory effort, able to speak in complete sentences and symmetric chest movement GI Inspection: normal to inspection Palpation: soft and other Other: gravid Skin General: no rashes or lesions noted Neuro General: patient alert, patient awake and patient oriented x3 Cognition: normal cognition Speech: speech normal Gait: normal gait Motor: muscle tone normal throughout Extrem General: normal to inspection and full ROM Psych Appearance: grossly normal Mental Status: mental status grossly normal Mood: congruent mood Affect: normal affect Speech and Movement: speech and movement normal Attitude: cooperative Thought Process: normal Thought Content: normal Judgment: judgment good Results POC Urinalysis 2 Dip (Clinic) Office Urine Glucose Negative Last Edit by Rosalie Arteaga on 09/24/24 14:17 Office Urine Protein Negative Last Edit by Rosalie Atreaga on 09/24/24 14:17 Coding Level of Care Code OB Routine Diagnoses Obesity affecting in second trimester, unspecified obesity type O99.212 Obesity type affecting : unspecified obesity Trimester: second trimester History of delivery, currently O34.219 History of molar Z87.59 Supervision of high risk in third trimester O09.93 Trimester: third trimester 35 weeks gestation of Z3A.35 Weeks of gestation: 35 weeks History of asthma Z87.09 Assessment and Plan Assessment and Plan (1) Obesity affecting : Status: Acute Qualifiers: Obesity type affecting : unspecified obesity Trimester: second trimester Qualified Code(s): O99.212 - Obesity complicating , second trimester Comment: BMI 30.1, HgBA1C ordered w/NOB (2) History of delivery, currently : Status: Acute Comment: x1 (2022), Desires , c/s 10/30 JV. (3) History of molar : Status: Acute Comment: June 2023- after delivery draw hcg to zero (4) Supervision of high-risk : Status: Acute Qualifiers: Trimester: third trimester Qualified Code(s): O09.93 - Supervision of high risk , unspecified, third trimester Comment: PRR, , NATAN 10/23/24, PC: Bora, : Boubacar (5) : Status: Acute Qualifiers: Weeks of gestation: 35 weeks Qualified Code(s): Z3A.35 - 35 weeks gestation of Comment: NIPT low risk (6) History of asthma: Status: Acute Comment: Childhood Orders: Orders Culture, Group B Streptococcus Today O09.93 - Supervision of high risk , unspecified, third trimester, Z3A.35 - 35 weeks gestation of POC Urinalysis 2 Dip (Clinic) Today Plan Details Additional Comments: ACOG trimester education reviewed and updated. see problem list details for updated plan management information and see below for orders placed at this visit. [place] appropriate handout given. Clinical Quality Measures Falls Risk Screening/Assistive Devices Have you fallen in the past year?: No 09/24/24 1425 <Electronically signed by Jorge gutierrez CNM> Date _ [facility] Valente [facility] Signature: Date (if applicable) CC: ~ [facility] Work Phone: [phone]) 606-765407-09-2025 [facility] [address] [place] [address], [place] [address] OFFICE VISIT Date of Service: 08/15/24 MR#: [id number] Acct: [id number] Name: JERMAIN GERARD Rep #: [id number] : 2000 Provider: FABBY Valente Age/Sex: 24/F Location: [facility] Status: Signed Intake Vital Signs 07/04/24 10:51 07/30/24 15:24 08/15/24 11:21 Height 5 ft 5 in 5 ft 5 in 5 ft 5 in Weight: 214 lb 6 oz BMI 35.6 BP 109/77 Intake Visit Reasons: 30wk ob Vp Scientific Required: No Is patient in pain?: No Allergies No Known Allergies Allergy (Verified 08/15/24 11:20) Medications ?Medication ?Instructions ?Recorded ?Confirmed ?Type organ concentrates 80 mg capsule mg PO 08/02/23 History cholecalciferol (vitamin D3) 10 10 mcg PO QDAY 5 08/15/24 History mcg (400 unit) capsule docosahexaenoic acid 200 mg mg PO 03/02/24 08/15/24 Hi story capsule ( DHA) Last Menstrual Period: 01/17/24 : Yes PFSH PFSH Medical History Early stage of Partial hydatidiform mole Wears glasses Surgical History S/P D&C (status post dilation and curettage) H/O laparoscopy History of delivery Family History Mother Asthma Grandfather COPD (chronic obstructive pulmonary disease) Diabetes Social History adopted: No household members: spouse and children number of children: 1 current occupational status: employed current occupation: [employer] current occupational exposures/hazards: No pets and animals: Yes pets and animals: dog(s) history of recent travel: Yes ([place] - Beginning of Feb 2024) out of state: Yes out of country: No sexually active: Yes Smoking Status: Never smoker second hand exposure: No alcohol intake: current alcohol intake frequency: holidays/special occasions only details: not during substance use type: does not use well-balanced diet: daily or most days caffeine: Yes eating out: rarely or never during the past year weight has: remained stable what type of physical activity do you participate in: walking frequency: 3-4 times per week duration: 15-30 minutes/day jerome/presybeterian: None seatbelt use: always do you feel safe at home: Yes additional social history: : Boubacar grullon History 3 Elective abortions Hx Para 1 Spontaneous abortions 1 Hx # Term Pregnancies Ectopic pregnancies Hx # Pregnancies Multiple births # of living children 1 Past Pregnancies Del. Date Name GA/Weeks Outcome Route Bth Weight Gen Labor Lgth Anesthesia Del Locatn Provider FOB 07/14/22 Maeli 39 live - full term 8lbs 6oz Female epidural Darek Hamlin 06/08/23 6 molar Delivery Date: 07/14/22 Last Updated by: Marcela Patrick RN [facility] d/t stuck in canal & mec aspirate - NICU x6days Delivery Date: 06/08/23 Last Updated by: Marcela Patrick RN D&C @ about 8weeks HPI 30wk ob Details: JERMAIN GERARD is a 24 year old who presents for routine OB visit. OB Visit NATAN Calculator 2 Estimated Delivery Date Method Current WG Current Estimate 10/23/24 LMP (Certain) 30w 1d Other Estimates 10/25/24 Ultrasound #1 29w 6d Expected Delivery Route/Plan wants to try Specific Issue/Plans Covid status: [] Flu vaccine: [] Tdap vaccine: [] Rhogam: NA LARC form signed: yes Problem list reviewed and updated with the most current plan of care details and appropriate ordersplaced. Relevant counseling for the gestational age provided. Continue routine care and follow up unless otherwise noted in visit notes/problem list details Initial Weight: Not Recorded Date -?-?-?-?-?-?-?-?-?-?-?-?- EGA Weight BP Urine Prot -?-?-?-?-?-?-?-?-?-?-?-?- Glucose FHR FuHt Pres Dilation -?-?-?-?-?-?-?-?-?-?-?-?- Effaced St Visit Note 03/16/24 -?-?-?-?-?-?-?-?-?-?-?-?- 8w 3d 192 lb 6 oz 119/79 -?-?-?-?-?-?-?-?-?-?-?-?- 165 -?-?-?-?-?-?-?-?-?-?-?-?- JV- CRL consiste nt with first ultrasound. desires NIPT. will return in 2 weeks to do all labs. 04/13/24 -?-?-?-?-?-?-?-?-?-?-?-?- 12w 3d 193 lb 6 oz 118/84 Nega tive -?-?-?-?-?-?-?-?-?-?-?-?- Negative 168 -?-?-?-?-?-?-?-?-?-?-?-?- KW-no vb/zuri zach US ordered. 05/09/24 -?-?-?-?-?-?-?-?-?-?-?-?- 16w 1d 196 lb 6 oz 112/76 Nega tive -?-?-?-?-?-?-?-?-?-?-?-?- Negative 152 -?-?-?-?-?-?-?-?-?-?-?-?- MH-No VB. Nausea persists but not daily. 06/08/24 -?-?-?-?-?-?-?-?-?-?-?-?- 20w 3d 204 lb 2 oz 107/74 Nega tive -?-?-?-?-?-?-?-?-?-?-?-?- Negative 145 -?-?-?-?-?-?-?-?-?-?-?-?- SM- no vb lof go od fm nor euglar ctx 07/04/24 -?-?-?-?-?-?-?-?-?-?-?-?- 24w 1d 209 lb 8 oz 110/76 Nega tive -?-?-?-?-?-?-?-?-?-?-?-?- Negative 137 25 -?-?-?-?-?-?-?-?-?-?-?-?- JV- no lof, vagi nal bleeding, and ++ fm. glucola next visit. declines tdap. 07/30/24 -?-?-?-?-?-?-?-?-?-?-?-?- 27w 6d 216 lb 118/80 Negative -?-?-?-?-?-?-?-?-?-?-?-?- Negative 151 27 -?-?-?-?-?-?-?-?-?-?-?-?- MH-No VB, LOF.Go od Fm. 28 wk labs pending. Larc 08/15/24 -?-?-?-?-?-?-?-?-?-?-?-?- 30w 1d 214 lb 6 oz 109/77 Trac e -?-?-?-?-?-?-?-?-?-?-?-?- Negative 160 31 -?-?-?-?-?-?-?-?-?-?-?-?- KW- no vb/lof/ct x. good fm desires and would like to go to 41 weeks gestation. C/S records requested but according to pt was due to malposition at [place]. Pushed for 2 hours and was OP. ACOG First Trimester First Trimester: Second Trimester Second Trimester: Signs and Symptoms of Labor Third Trimester Third Trimester: Labor support person(s), Immediate Larc, Signs and Symptoms of Preeclampsia, Feeding Yes and Family Medical Leave or Disability Forms ROS Const Reports system reviewed and no additional complaints, except as documented Eyes Reports system reviewed and no additional complaints, except as documented ENT Reports system reviewed and no additional complaints, except as documented Card Reports system reviewed and no additional complaints, except as documented Resp Reports system reviewed and no additional complaints, except as documented GI Reports system reviewed and no additional complaints, except as documented, Denies nausea and Denies vomiting Reports system reviewed and no additional complaints, except as documented Musc Reports system reviewed and no additional complaints, except as documented Skin/Breast Reports system reviewed and no additional complaints, except as documented Neuro Yes system reviewed and no additional complaints, except as documented Psych Reports system reviewed and no additional complaints, except as documented Endo Reports system reviewed and no additional complaints, except as documented Nixon/Lymph Reports system reviewed and no additional complaints, except as documented Aller/Immun Reports system reviewed and no additional complaints, except as documented Exam Const General: cooperative, healthy appearing and no acute distress Orientation: alert, awake and oriented x3 Neck Neck: normal visual inspection and full ROM Resp Effort & Inspection: normal respiratory effort, able to speak in complete sentences and symmetric chest movement GI Inspection: normal to inspection Palpation: soft and other Other: gravid Skin General: no rashes or lesions noted Neuro General: patient alert, patient awake and patient oriented x3 Cognition: normal cognition Speech: speech normal Gait: normal gait Motor: muscle tone normal throughout Extrem General: normal to inspection and full ROM Psych Appearance: grossly normal Mental Status: mental status grossly normal Mood: congruent mood Affect: normal affect Speech and Movement: speech and movement normal Attitude: cooperative Thought Process: normal Thought Content: normal Judgment: judgment good Results POC Urinalysis 2 Dip (Clinic) Office Urine Glucose Negative Last Edit by Khadijah Wong on 08/15/24 11:26 Office Urine Protein Trace Last Edit by Khadijah Wong on 08/15/24 11:26 Coding Level of Care Code OB Routine Diagnoses Obesity affecting in second trimester, unspecified obesity type O99.212 Obesity type affecting : unspecified obesity Trimester: second trimester History of delivery, currently O34.219 History of molar Z87.59 Supervision of high risk in second trimester O09.92 Trimester: second trimester 30 weeks gestation of Z3A.30 Weeks of gestation: 30 weeks History of asthma Z87.09 Assessment and Plan Assessment and Plan (1) Obesity affecting : Status: Acute Qualifiers: Obesity type affecting : unspecified obesity Trimester: second trimester Qualified Code(s): O99.212 - Obesity complicating , second trimester Comment: BMI 30.1, HgBA1C ordered w/NOB (2) History of delivery, currently : Status: Acute Comment: x1 (2022), Desires (3) History of molar : Status: Acute Comment: June 2023- after delivery draw hcg to zero (4) Supervision of high-risk : Status: Acute Qualifiers: Trimester: second trimester Qualified Code(s): O09.92 - Supervision of high risk , unspecified, second trimester Comment: PRR, , NATAN 10/23/24, PC: Bora, : Boubacar (5) : Status: Acute Qualifiers: Weeks of gestation: 30 weeks Qualified Code(s): Z3A.30 - 30 weeks gestation of Comment: NIPT low risk (6) History of asthma: Status: Acute Comment: Childhood Orders: Orders POC Urinalysis 2 Dip (Clinic) Today Plan Details Additional Comments: ACOG trimester education reviewed and updated. see problem list details for updated plan management information and see below for orders placed atthis visit. [place] appropriate handout given. 08/15/24 1147 s CNM> Date _ Jorge Roblesigner Signature: Date (if applicable) CC: ~ [facility]05-28-2025 Evaluation note* Diagnosis Onset Date Resolution Status Admit Date History of asthma acute June 10:46am History of delivery , currently acute July 04 10:46am History of molar acute July 04, 2024 10:46am Obesity affecting acute July 04, 2024 10:46am acute July 04, 2024 10:46am Supervision of high-risk acute July 04, 2024 1 0:46am History of asthma acute July 302024 3:21pm History of delivery , currently acute July 30 3:21pm History of molar acute July 30, 2024 3:21pm Obesity affecting acute July 30, 2024 3:21pm acute July 30 3:21pm Supervision of high-risk acute July 30, 2024 3:21pm History of asthma acute August 11:18am History of delivery , currently acute August 15 11:18am History of molar acute August 15, 2024 11:18am Obesity affecting acute August 15, 2024 11:18am acute August 15, 2024 11:18am Supervision of high-risk acute August 15, 2024 1 1:18am History of asthma acute August 282024 3:02pm History of delivery , currently acute August 28 3:02pm History of molar acute August 28, 2024 3:02pm Obesity affecting acute August 28, 2024 3:02pm acute August 28 3:02pm Supervision of high-risk acute August 28, 2024 3:02pm History of asthma acute September 11, 2024 9:27am History of delivery , currently acute September 11, 2 025 9:27am History of molar acute September 11, 2024 9:27am Obesity affecting acute September 11, 2024 9:27am acute September 11 9:27am Supervision of high-risk acute September 11, 2024 9:27am History of asthma acute September 24, 2024 2:03pm History of delivery , currently acute September 24, 2024 2:03pm History of molar acute September 24, 2024 2:03pm Obesity affecting acute September 24, 2024 2:03pm acute September 24, 2 025 2:03pm Supervision of high-risk acute September 24 2:03pm History of asthma acute October 02, 2024 2:37pm History of delivery , currently acute October 02, 2024 2:37pm History of molar acute October 02, 2024 2:37pm Obesity affecting acute October 02, 2024 2:37pm acute October 02, 025 2:37pm Supervision of high-risk acute October 02 2:37pm History of asthma acute 2024 7:51am History of delivery , currently acute October 7:51am History of molar acute October 11, 2024 7:51am Obesity affecting acute October 11, 2024 7:51am acute October 11, 2024 7:51am Supervision of high-risk acute October 11, 025 7:51am [facility] Work Phone: 1(441) 198-798905-28-2025 Evaluation note* Diagnosis Onset Date Resolution Status Admit Date History of asthma acute June 10:46am History of delivery , currently acute July 04 10:46am History of molar acute July 04, 2024 10:46am Obesity affecting acute July 04, 2024 10:46am acute July 04, 2024 10:46am Supervision of high-risk acute July 04, 2024 1 0:46am History of asthma acute July 302024 3:21pm History of delivery , currently acute July 30 3:21pm History of molar acute July 30, 2024 3:21pm Obesity affecting acute July 30, 2024 3:21pm acute July 30 3:21pm Supervision of high-risk acute July 30, 2024 3:21pm History of asthma acute August 11:18am History of delivery , currently acute August 15 11:18am History of molar acute August 15, 2024 11:18am Obesity affecting acute August 15, 2024 11:18am acute August 15, 2024 11:18am Supervision of high-risk acute August 15, 2024 1 1:18am History of asthma acute August 282024 3:02pm History of delivery , currently acute August 28 3:02pm History of molar acute August 28, 2024 3:02pm Obesity affecting acute August 28, 2024 3:02pm acute August 28 3:02pm Supervision of high-risk acute August 28, 2024 3:02pm History of asthma acute September 11, 2024 9:27am History of delivery , currently acute September 11, 2 025 9:27am History of molar acute September 11, 2024 9:27am Obesity affecting acute September 11, 2024 9:27am acute September 11 9:27am Supervision of high-risk acute September 11, 2024 9:27am History of asthma acute September 24, 2024 2:03pm History of delivery , currently acute September 24, 2024 2:03pm History of molar acute September 24, 2024 2:03pm Obesity affecting acute September 24, 2024 2:03pm acute September 24, 2 025 2:03pm Supervision of high-risk acute September 24 2:03pm History of asthma acute October 02, 2024 2:37pm History of delivery , currently acute October 02, 2024 2:37pm History of molar acute October 02, 2024 2:37pm Obesity affecting acute October 02, 2024 2:37pm acute October 02, 2 025 2:37pm Supervision of high-risk acute October 02 2:37pm History of asthma acute 2024 7:51am History of delivery , currently acute October 7:51am History of molar acute October 11, 2024 7:51am Obesity affecting acute October 11, 2024 7:51am acute October 11, 2024 7:51am Supervision of high-risk acute October 11 025 7:51am History of asthma acute 2024 1:19pm History of delivery , currently acute October 1:19pm History of molar acute October 16, 2024 1:19pm Obesity affecting acute October 16, 2024 1:19pm acute October 16, 2024 1:19pm Supervision of high-risk acute October 16 1:19pm [facility] Work Phone: 1(519) 832-597705-28-2025 [facility] [address] [place] [address], [address] [place] [address] OFFICE VISIT Date of Service: 07/04/24 MR#: [id number] Acct: [id number] Name: JERMAIN GERARD Rep #: [id number] : 2000 Provider: Dr. Lula Lindsey DO Age/Sex: 24/F Location: [facility] Status: Signed Intake Vital Signs 04/13/24 10:21 06/08/24 11:48 07/04/24 10:50 07/04/24 10:51 Height 5 ft 5 in 5 ft 5 in 5 ft 5 in 5 ft 5 in Weight: 209 lb 8 oz BMI 34.8 BP 110/76 Intake Visit Reasons: 24 wk ob Vp Scientific Required: No Is patient in pain?: No Allergies No Known Allergies Allergy (Verified 07/04/24 10:50) Medications ?Medication ?Instructions ?Recorded ?Confirmed ?Type organ concentrates 80 mg capsule mg PO 08/02/23 History cholecalciferol (vitamin D3) 10 10 mcg PO QDAY 5 07/04/24 History mcg (400 unit) capsule docosahexaenoic acid 200 mg mg PO 03/02/24 07/04/24 Hi story capsule ( DHA) Last Menstrual Period: 01/17/24 Zika: Zika virus screening: Negative : No PFSH PFSH Medical History Early stage of Partial hydatidiform mole Wears glasses Surgical History S/P D&C (status post dilation and curettage) H/O laparoscopy History of delivery Family History Mother Asthma Grandfather COPD (chronic obstructive pulmonary disease) Diabetes Social History adopted: No household members: spouse and children number of children: 1 current occupational status: employed 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/hazards: No pets and animals: Yes pets and animals: dog(s) history of recent travel: Yes ([place] - Beginning of Feb 2024) out of state: Yes out of country: No sexually active: Yes Smoking Status: Never smoker second hand exposure: No alcohol intake: current alcohol intake frequency: holidays/special occasions only details: not during substance use type: does not use well-balanced diet: daily or most days caffeine: Yes eating out: rarely or never during the past year weight has: remained stable what type of physical activity do you participate in: walking frequency: 3-4 times per week duration: 15-30 minutes/day jerome/presybeterian: None seatbelt use: always do you feel safe at home: Yes additional social history: : Boubacar grullon History 3 Elective abortions Hx Para 1 Spontaneous abortions 1 Hx # Term Pregnancies Ectopic pregnancies Hx # Pregnancies Multiple births # of living children 1 Past Pregnancies Del. Date Name GA/Weeks Outcome Route Bth Weight Gen Labor Lgth Anesthesia Del Locatn Provider FOB 07/14/22 Maeli 39 live - full term 8lbs 6oz Female epidural Darek Hamlin 06/08/23 6 molar Delivery Date: 07/14/22 Last Updated by: Marcela Patrick RN Csec d/t stuck in canal & mec aspirate - NICU x6days Delivery Date: 06/08/23 Last Updated by: Marcela Patrick RN D&C @ about 8weeks HPI 24 wk ob Details: JERMAIN GERARD is a 24 year old who presents for routine OB visit. OB Visit NATAN Calculator Estimated Delivery Date Method Current WG Current Estimate 10/23/24 LMP (Certain) 24w 1d Other Estimates 10/25/24 Ultrasound #1 23w 6d Expected Delivery Route/Plan wants to try Specific Issue/Plans Covid status: [] Flu vaccine: [] Tdap vaccine: [] Rhogam: [] LARC form signed: [] Problem list reviewed and updated with the most current plan of care details and appropriate ordersplaced. Relevant counseling for the gestational age provided. Continue routine care and follow up unless otherwise noted in visit notes/problem list details Initial Weight: Not Recorded Date -?-?-?-?-?-?-?-?-?-?-?-?- EGA Weight BP Urine Prot -?-?-?-?-?-?-?-?-?-?-?-?- Glucose FHR FuHt Pres Dilation -?-?-?-?-?-?-?-?-?-?-?-?- Effaced St Visit Note 03/16/24 -?-?-?-?-?-?-?-?-?-?-?-?- 8w 3d 192 lb 6 oz 119/79 -?-?-?-?-?-?-?-?-?-?-?-?- 165 -?-?-?-?-?-?-?-?-?-?-?-?- JV- CRL consiste nt with first ultrasound. desires NIPT. will return in 2 weeks to do all labs. 04/13/24 -?-?-?-?-?-?-?-?-?-?-?-?- 12w 3d 193 lb 6 oz 118/84 Nega tive -?-?-?-?-?-?-?-?-?-?-?-?- Negative 168 -?-?-?-?-?-?-?-?-?-?-?-?- KW-no vb/zuri serrano US ordered. 05/09/24 -?-?-?-?-?-?-?-?-?-?-?-?- 16w 1d 196 lb 6 oz 112/76 Nega tive -?-?-?-?-?-?-?-?-?-?-?-?- Negative 152 -?-?-?-?-?-?-?-?-?-?-?-?- MH-No VB. Nausea persists but not daily. 06/08/24 -?-?-?-?-?-?-?-?-?-?-?-?- 20w 3d 204 lb 2 oz 107/74 Nega tive -?-?-?-?-?-?-?-?-?-?-?-?- Negative 145 -?-?-?-?-?-?-?-?-?-?-?-?- SM- no vb lof go od fm nor euglar ctx 07/04/24 -?-?-?-?-?-?-?-?-?-?-?-?- 24w 1d 209 lb 8 oz 110/76 Nega tive -?-?-?-?-?-?-?-?-?-?-?-?- Negative 137 25 -?-?-?-?-?-?-?-?-?-?-?-?- JV- no lof, vagi nal bleeding, and ++ fm. glucola next visit. declines tdap. ACOG First Trimester First Trimester: Discussed Results POC Urinalysis 2 Dip (Clinic) Office Urine Glucose Negative Last Edit by Janel Lynn on 07/04/24 10: 59 Office Urine Protein Negative Last Edit by Janel Lynn on 07/04/24 10: 59 Coding Level of Care Code OB Routine Diagnoses Obesity affecting in second trimester, unspecified obesity type O99.212 Obesity type affecting : unspecified obesity Trimester: second trimester History of delivery, currently O34.219 History of molar Z87.59 Supervision of high risk in second trimester O09.92 Trimester: second trimester 24 weeks gestation of Z3A.24 Weeks of gestation: 24 weeks History of asthma Z87.09 Assessment and Plan Assessment and Plan (1) Obesity affecting : Status: Acute Qualifiers: Obesity type affecting : unspecified obesity Trimester: second trimester Qualified Code(s): O99.212 - Obesity complicating , second trimester Comment: BMI 30.1, HgBA1C ordered w/NOB (2) History of delivery, currently : Status: Acute Comment: x1 (2022), Desires (3) History of molar : Status: Acute Comment: June 2023- after delivery draw hcg to zero (4) Supervision of high-risk : Status: Acute Qualifiers: Trimester: second trimester Qualified Code(s): O09.92 - Supervision of high risk , unspecified, second trimester Comment: PRR, , NATAN 10/23/24, PC: Bora, : Boubacar (5) : Status: Acute Qualifiers: Weeks of gestation: 24 weeks Qualified Code(s): Z3A.24 - 24 weeks gestation of Comment: NIPT low risk (6) History of asthma: Status: Acute Comment: Childhood Orders: Orders POC Urinalysis 2 Dip (Clinic) Today CBC W/Diff, Automated Today O09.92 - Supervision of high risk , unspecified, second trimester Glucose Challenge Gest 1H 50g Today O09.92 - Supervision of high risk , unspecified, second trimester, Z13.1 - Encounter for screening for diabetes mellitus HIV Today O09.92 - Supervision of high risk , unspecified, second trimester Syphilis Antibodies Today O09.92 - Supervision of high risk , unspecified, second trimester 07/04/24 1115 e Ashley DO> Date _ Holly Lindsey DO [facility] Signature: Date (if applicable) CC: ~ [facility]05-02-2025 Evaluation note* Diagnosis Onset Date Resolution Status Admit Date History of asthma acute June 11:45am History of delivery , currently acute June 08, 2024 11:45am History of molar acute June 08, 2024 11:45am Obesity affecting acute June 08, 2024 11:45am acute June 08, 2024 11:45am Supervision of high-risk acute June 08, 2024 11 :45am History of asthma acute June 10:46am History of delivery , currently acute July 04 10:46am History of molar acute July 04, 2024 10:46am Obesity affecting acute July 04, 2024 10:46am acute July 04, 2024 10:46am Supervision of high-risk acute July 04, 2024 1 0:46am History of asthma acute July 302024 3:21pm History of delivery , currently acute July 30 3:21pm History of molar acute July 30, 2024 3:21pm Obesity affecting acute July 30, 2024 3:21pm acute July 30 3:21pm Supervision of high-risk acute July 30, 2024 3:21pm History of asthma acute August 11:18am History of delivery , currently acute August 15 11:18am History of molar acute August 15, 2024 11:18am Obesity affecting acute August 15, 2024 11:18am acute August 15, 2024 11:18am Supervision of high-risk acute August 15, 2024 1 1:18am History of asthma acute August 282024 3:02pm History of delivery , currently acute August 28 3:02pm History of molar acute August 28, 2024 3:02pm Obesity affecting acute August 28, 2024 3:02pm acute August 28 3:02pm Supervision of high-risk acute August 28, 2024 3:02pm History of asthma acute September 11, 2024 9:27am History of delivery , currently acute September 11, 2 025 9:27am History of molar acute September 11, 2024 9:27am Obesity affecting acute September 11, 2024 9:27am acute September 11 9:27am Supervision of high-risk acute September 11, 2024 9:27am [facility] Work Phone: 1(249) 969-880905-02-2025 Evaluation note* Diagnosis Onset Date Resolution Status Admit Date History of asthma acute June 11:45am History of delivery , currently acute June 08, 2024 11:45am History of molar acute June 08, 2024 11:45am Obesity affecting acute June 08, 2024 11:45am acute June 08, 2024 11:45am Supervision of high-risk acute June 08, 2024 11 :45am History of asthma acute June 10:46am History of delivery , currently acute July 04 10:46am History of molar acute July 04, 2024 10:46am Obesity affecting acute July 04, 2024 10:46am acute July 04, 2024 10:46am Supervision of high-risk acute July 04, 2024 1 0:46am History of asthma acute July 302024 3:21pm History of delivery , currently acute July 30 3:21pm History of molar acute July 30, 2024 3:21pm Obesity affecting acute July 30, 2024 3:21pm acute July 30 3:21pm Supervision of high-risk acute July 30, 2024 3:21pm History of asthma acute August 11:18am History of delivery , currently acute August 15 11:18am History of molar acute August 15, 2024 11:18am Obesity affecting acute August 15, 2024 11:18am acute August 15, 2024 11:18am Supervision of high-risk acute August 15, 2024 1 1:18am History of asthma acute August 282024 3:02pm History of delivery , currently acute August 28 3:02pm History of molar acute August 28, 2024 3:02pm Obesity affecting acute August 28, 2024 3:02pm acute August 28 3:02pm Supervision of high-risk acute August 28, 2024 3:02pm History of asthma acute September 11, 2024 9:27am History of delivery , currently acute September 11, 2 025 9:27am History of molar acute September 11, 2024 9:27am Obesity affecting acute September 11, 2024 9:27am acute September 11 9:27am Supervision of high-risk acute September 11, 2024 9:27am History of asthma acute September 24, 2024 2:03pm History of delivery , currently acute September 24, 2024 2:03pm History of molar acute September 24, 2024 2:03pm Obesity affecting acute September 24, 2024 2:03pm acute September 24, 025 2:03pm Supervision of high-risk acute September 24 2:03pm [facility] Work Phone: 1(589) 799-801405-02-2025 Evaluation note* Diagnosis Onset Date Resolution Status Admit Date History of asthma acute June 11:45am History of delivery , currently acute June 08, 2024 11:45am History of molar acute June 08, 2024 11:45am Obesity affecting acute June 08, 2024 11:45am acute June 08, 2024 11:45am Supervision of high-risk acute June 08, 2024 11 :45am History of asthma acute June 10:46am History of delivery , currently acute July 04 10:46am History of molar acute July 04, 2024 10:46am Obesity affecting acute July 04, 2024 10:46am acute July 04, 2024 10:46am Supervision of high-risk acute July 04, 2024 1 0:46am History of asthma acute July 302024 3:21pm History of delivery , currently acute July 30 3:21pm History of molar acute July 30, 2024 3:21pm Obesity affecting acute July 30, 2024 3:21pm acute July 30 3:21pm Supervision of high-risk acute July 30, 2024 3:21pm History of asthma acute August 11:18am History of delivery , currently acute August 15 11:18am History of molar acute August 15, 2024 11:18am Obesity affecting acute August 15, 2024 11:18am acute August 15, 2024 11:18am Supervision of high-risk acute August 15, 2024 1 1:18am History of asthma acute August 282024 3:02pm History of delivery , currently acute August 28 3:02pm History of molar acute August 28, 2024 3:02pm Obesity affecting acute August 28, 2024 3:02pm acute August 28 3:02pm Supervision of high-risk acute August 28, 2024 3:02pm History of asthma acute September 11, 2024 9:27am History of delivery , currently acute September 11, 025 9:27am History of molar acute September 11, 2024 9:27am Obesity affecting acute September 11, 2024 9:27am acute September 11 9:27am Supervision of high-risk acute September 11, 2024 9:27am History of asthma acute September 24, 2024 2:03pm History of delivery , currently acute September 24, 2024 2:03pm History of molar acute September 24, 2024 2:03pm Obesity affecting acute September 24, 2024 2:03pm acute September 24, 2 025 2:03pm Supervision of high-risk acute September 24 2:03pm History of asthma acute October 02, 2024 2:37pm History of delivery , currently acute October 02, 2024 2:37pm History of molar acute October 02, 2024 2:37pm Obesity affecting acute October 02, 2024 2:37pm acute October 02, 2 025 2:37pm Supervision of high-risk acute October 02 2:37pm [facility] Work Phone: 1(420) 393-309004-02-2025 Evaluation note* Diagnosis Onset Date Resolution Status Admit Date History of asthma acute May 092024 8:26am History of delivery , currently acute May 09 8:26am History of molar acute May 09, 2024 8:26am Obesity affecting acute May 09, 2024 8:26am acute May 09 8:26am Supervision of high-risk acute May 09, 2024 8:26am History of asthma acute June 11:45am History of delivery , currently acute June 08, 2024 11:45am History of molar acute June 08, 2024 11:45am Obesity affecting acute June 08, 2024 11:45am acute June 08, 2024 11:45am Supervision of high-risk acute June 08, 2024 11 :45am History of asthma acute June 10:46am History of delivery , currently acute July 04 10:46am History of molar acute July 04, 2024 10:46am Obesity affecting acute July 04, 2024 10:46am acute July 04, 2024 10:46am Supervision of high-risk acute July 04, 2024 1 0:46am History of asthma acute July 302024 3:21pm History of delivery , currently acute July 30 3:21pm History of molar acute July 30, 2024 3:21pm Obesity affecting acute July 30, 2024 3:21pm acute July 30 3:21pm Supervision of high-risk acute July 30, 2024 3:21pm History of asthma acute August 11:18am History of delivery , currently acute August 15 11:18am History of molar acute August 15, 2024 11:18am Obesity affecting acute August 15, 2024 11:18am acute August 15, 2024 11:18am Supervision of high-risk acute August 15, 2024 1 1:18am [facility] Work Phone: 1(374) 735-747604-02-2025 Evaluation note* Diagnosis Onset Date Resolution Status Admit Date History of asthma acute May 092024 8:26am History of delivery , currently acute May 09 8:26am History of molar acute May 09, 2024 8:26am Obesity affecting acute May 09, 2024 8:26am acute May 09 8:26am Supervision of high-risk acute May 09, 2024 8:26am History of asthma acute June 11:45am History of delivery , currently acute June 08, 2024 11:45am History of molar acute June 08, 2024 11:45am Obesity affecting acute June 08, 2024 11:45am acute June 08, 2024 11:45am Supervision of high-risk acute June 08, 2024 11 :45am History of asthma acute June 10:46am History of delivery , currently acute July 04 10:46am History of molar acute July 04, 2024 10:46am Obesity affecting acute July 04, 2024 10:46am acute July 04, 2024 10:46am Supervision of high-risk acute July 04, 2024 1 0:46am History of asthma acute July 302024 3:21pm History of delivery , currently acute July 30 3:21pm History of molar acute July 30, 2024 3:21pm Obesity affecting acute July 30, 2024 3:21pm acute July 30 3:21pm Supervision of high-risk acute July 30, 2024 3:21pm History of asthma acute August 11:18am History of delivery , currently acute August 15 11:18am History of molar acute August 15, 2024 11:18am Obesity affecting acute August 15, 2024 11:18am acute August 15, 2024 11:18am Supervision of high-risk acute August 15, 2024 1 1:18am History of asthma acute August 282024 3:02pm History of delivery , currently acute August 28 3:02pm History of molar acute August 28, 2024 3:02pm Obesity affecting acute August 28, 2024 3:02pm acute August 28 3:02pm Supervision of high-risk acute August 28, 2024 3:02pm [facility] Work Phone: 1(703) 716-623803-07-2025 Evaluation note* Diagnosis Onset Date Resolution Status Admit Date History of asthma acute April 132024 10:02am History of delivery , currently acute April 13 10:02am History of molar acute April 13, 2024 10:02am Obesity affecting acute April 13, 2024 10:02am acute April 13 10:02am Supervision of high-risk acute April 13, 2024 10:02am History of asthma acute May 092024 8:26am History of delivery , currently acute May 09 8:26am History of molar acute May 09, 2024 8:26am Obesity affecting acute May 09, 2024 8:26am acute May 09 8:26am Supervision of high-risk acute May 09, 2024 8:26am History of asthma acute June 11:45am History of delivery , currently acute June 08, 2024 11:45am History of molar acute June 08, 2024 11:45am Obesity affecting acute June 08, 2024 11:45am acute June 08, 2024 11:45am Supervision of high-risk acute June 08, 2024 11 :45am History of asthma acute June 10:46am History of delivery , currently acute July 04 10:46am History of molar acute July 04, 2024 10:46am Obesity affecting acute July 04, 2024 10:46am acute July 04, 2024 10:46am Supervision of high-risk acute July 04, 2024 1 0:46am History of asthma acute July 302024 3:21pm History of delivery , currently acute July 30 3:21pm History of molar acute July 30, 2024 3:21pm Obesity affecting acute July 30, 2024 3:21pm acute July 30 3:21pm Supervision of high-risk acute July 30, 2024 3:21pm [facility] Work Phone: 1(145) 273-827402-07-2025 Evaluation note* Diagnosis Onset Date Resolution Status Admit Date History of asthma acute 2024 1:11pm History of delivery , currently acute March 16, 2024 1:11pm History of molar acute March 16, 2024 1:11pm Obesity affecting acute March 16, 2024 1:11pm acute March 16, 2024 1:11pm Supervision of high-risk acute March 16 1:11pm History of asthma acute April 132024 10:02am History of delivery , currently acute April 13 10:02am History of molar acute April 13, 2024 10:02am Obesity affecting acute April 13, 2024 10:02am acute April 13 10:02am Supervision of high-risk acute April 13, 2024 10:02am History of asthma acute May 092024 8:26am History of delivery , currently acute May 09 8:26am History of molar acute May 09, 2024 8:26am Obesity affecting acute May 09, 2024 8:26am acute May 09 8:26am Supervision of high-risk acute May 09, 2024 8:26am History of asthma acute June 11:45am History of delivery , currently acute June 08, 2024 11:45am History of molar acute June 08, 2024 11:45am Obesity affecting acute June 08, 2024 11:45am acute June 08, 2024 11:45am Supervision of high-risk acute June 08, 2024 11 :45am History of asthma acute June 10:46am History of delivery , currently acute July 04 10:46am History of molar acute July 04, 2024 10:46am Obesity affecting acute July 04, 2024 10:46am acute July 04, 2024 10:46am Supervision of high-risk acute July 04, 2024 1 0:46am [facility] Work Phone: 1(941) 947-598405-10-2024 Discharge summary Author Fernando Shirley [facility] June 17, 2023 10:35pm Note Date/Time June 17, 2023 8:11p m [facility] Medical Records Department [address] [place] [address] Emergency Department Summary 06/17/23 MR#: [id number] Acct: [id number] Name: JERMAIN GERARD Rep #:[id number] : 2000 23 From: Fernando Shirley MD PCP: Care Physician,No Primary Status :REG ER Location: ED HPI HPI - Female History of Present Illness Chief Complaint: Vag Bld, Preg Informant: patient Pain Pain: Positive for Pelvic Pain Onset: Today Context: Gradual Onset Timing: Continuous Quality: Positive for Cramping Location: Suprapubic Current Severity: Mild Maximum Severity: Mild Bleeding Issue: Positive for Vaginal bleeding Onset: Today (4 hrs or so) Context: Gradual Onset Current Severity: Mild Associated Symptoms Last known menstrual period: 05/08/23 Test: Positive, Urine and Home Sexually: Positive for Active and Single Partner P: 1 Ab: 0 Narrative Narrative: 23-year-old female with a positive home test last week when she missedher cycle now having pain and bleeding that started today. No other systemic symptoms. No injuries or falls. with this . Has not seen OB yet during this . Unknown blood type. No presyncope or lightheadedness. Pain is nonlateralizing. PFSH PFSH Medical History no medical history no medical history Allergy/AdvReac Type Severity Reaction Status Date / Time No Known Allergies Allergy Verified 06/17/23 19:13 Surgical History no surgical history Social History Smoking Status: Never smoker ROS ROS ED Constitutional Constitutional ED: Denies chills or fever(s) Eyes Eyes: Denies change in vision or diplopia ENT ENT ED: Denies rhinorrhea or sore throat Cardiovascular Cardiovascular: Denies chest pain, lightheadedness, palpitations or syncope Respiratory/Chest Respiratory/Chest: Denies cough or dyspnea Gastrointestinal Gastrointestinal: Reports abdominal pain; Denies diarrhea, nausea or vomiting Genitourinary Genitourinary ED: Denies dysuria or hematuria Musculoskeletal Musculoskeletal: Denies back pain or neck pain Integumentary Denies abscess or rash Neurologic Neurologic: Denies headache(s), paresthesias or weakness Psychiatric Psychiatric: Denies anxiety or suicidal thoughts EXAM Physical Exam Const Vital Signs: 06/17/23 19:13 06/17/23 19:13 06/17/23 20:13 Temperature 97 F L Temperature Source Temporal Pulse Rate 114 H 104 H 65 Respiratory Rate 14 14 18 Blood Pressure 141/93 H 128/81 H 128/82 H Blood Pressure Mean 109 96 97 Pulse Ox 99 98 97 Oxygen Delivery Method Room Air Room Air Room Air 06/17/23 21:00 Temperature Temperature Source Pulse Rate 65 Respiratory Rate 18 Blood Pressure 132/69 H Blood Pressure Mean 90 Pulse Ox 99 Oxygen Delivery Method Room Air Positive well nourished and well developed Constitutional Narrative: Well-appearing General Appearance ED: well developed and NAD HEENT Reports moist mucous membranes normocephalic and atraumatic Eyes PERRL and EOMs intact bilaterally Neck full ROM and supple Resp normal respiratory effort and clear to auscultation bilaterally Cardio regular rate, regular rhythm and no murmurs Rate: Negative for tachycardic GI non-tender and non-distended Auscultation: normoactive bowel sounds Palpation: soft Back/Spine General Back: other FROM Extremity normal to inspection General Extremety ED: Negative for edema, pulses abnormal or tenderness General Extremity: Negative for edema or pulses abnormal Neuro oriented x3, CN's II-XII intact bilaterally and no sensory deficits noted Sensorium / Orientation: awake and alert Motor Exam: strength 5/5 throughout Psych mental status grossly normal Skin no rashes or lesions noted and no wounds MDM MDM MDM Narrative Medical decision making narrative: Given the patient is only 5 weeks along, ultrasound obtained in addition to quantitative hCG to evaluate the possibility of intrauterine versus miscarriage versus ectopic, or other. Urinalysis shows no signs of infection. Quantitative hCG is 1873, indicating we should likely be seen something on ultrasound, however I reviewed the images and the report which I agree with, it basically shows no intrauterine process and no definite adnexal process. The differential here includes a completed AB, versus an early intrauterine which is unlikely given the quantitative hCG, versus an early ectopic. The next indicated test would be a 48-hour repeat quantitative hCG. Unfortunately that would put her at Tuesday night, so after discussion with Momo with OB with whom the patient has an appointment next week, this will be Tuesday morning. Her blood type is O+, RhoGAM not indicated. Patient is stable clinically and hemodynamically, answered all questions at the bedside with her significant other, she is comfortable with that plan. History & Record Review Additional record(s) reviewed:: No prior records (No prior record of blood type measurement) Lab Data Attestation: I reviewed the patient's lab results. Labs: Laboratory Results - last 24 hr 06/17/23 06/17/23 19:55 20:50 HCG, Quant 1873 H Urine Color Red Urine Clarity Cloudy Urine pH 7.0 Ur Specific [place] 1.015 Urine Protein 100 H Urine Glucose (UA) Normal Urine Ketones Negative Urine Occult Blood 250 H Urine Nitrite Negative Urine Bilirubin Negative Urine Urobilinogen Normal Ur Leukocyte Esterase 25 H Urine RBC > 100 SEEN Urine WBC 0-5 SEEN Ur Squamous Epith Cells 0 SEEN Urine Bacteria RARE Urine Mucus 0 SEEN Blood Type O POSITIVE Radiography Diagnostic Testing: Clinical Impression(s) from Imaging Studies Obstetrics Ultrasound 06/17/23 20:00 IMPRESSION: No evidence for intrauterine gestational sac or ectopic .. Heterogeneous appearance to endometrial lining. No definitive evidence for retained products of conception however clinical correlation recommended Electronically Signed: Brandon Taylor MD at 20:48 EDT , Discharge Plan Triage Chief Complaint: Vag Bld, Preg ED Provider: Fernando Shirley Dx/Rx/DC Orders Clinical Impression: Bleeding in early Instructions: Miscarriage Threatened Primary Care Provider: Care Physician,Nadira Primary Referrals: Jorge Valente CNM [Med Staff - Adv Practice Prof] - 06/20/23 (If you do not hear from OB, call Tuesday morning to see what time they want you to come.) What to do if you have Problems For any increased pain, shortness of breath, bleeding, nausea or vomiting, chestpain, or any unexpected problems, contact your Primary Care Provider. Call [facility] ([phone]) or report to the closest Emergency Room. Call 911 if necessary. 06/17/232234 <Electronically signed by Fernando Shirley MD> Cosigner Signature (if applicable): CC: FABBY Valente; No Primary Care Physician ~ Signed [facility] Work Phone: [phone]) 354-974107-06-2023 Note. MICRO - Microbiology PROCEDURE: Blood Culture (fungal and bacterial) [*1] SOURCE: Blood BODY SITE: COLLECTED DATE/TIME: 07/15/2022 08:21 EDT RECEIVED DATE/TIME: 07/15/2022 08:36 EDT START DATE/TIME: 07/15/2022 08:36 EDT FREE TEXT SOURCE: FINAL REPORTS Final Report [] Verified Date/Time/Personnel: 08/12/2022 11:45 EDT Blood Culture with fungus: No growth at 4 weeks. PRELIMINARY REPORTS Preliminary Report [] Verified Date/Time/Personnel: 07/15/2022 09:59 EDT Culture has been received in lab and is no growth to date. Culture will be held for four weeks. Performing Locations *1: This test was performed at: [address], [facility] , [facility]07-20-2022 Note. MICRO - Microbiology PROCEDURE: Blood Culture (bacterial) [*1] SOURCE: Blood BODY SITE: COLLECTED DATE/TIME: 07/15/2022 08:21 EDT RECEIVED DATE/TIME: 07/15/2022 08:36 EDT START DATE/TIME: 07/15/2022 08:36 EDT FREE TEXT SOURCE: FINAL REPORTS Final Report [] Verified Date/Time/Personnel: 07/20/2022 08:59 EDT Blood Culture: No Growth at 5 days. PRELIMINARY REPORTS Preliminary Report [] Verified Date/Time/Personnel: 07/15/2022 09:59 EDT Culture has been received in lab and is no growth to date. Routine cultures are held for 5 days. Performing Locations *1: This test was performed at: [address], [facility] , [facility]07-19-2022 Note. MICRO - Microbiology PROCEDURE: Culture Tissue [*1] SOURCE: Placenta BODY SITE: Uterus COLLECTED DATE/TIME: 07/14/2022 03:55 EDT RECEIVED DATE/TIME: 07/14/2022 07:06 EDT START DATE/TIME: 07/14/2022 07:06 EDT FREE TEXT SOURCE: FINAL REPORTS Final Report [] Verified Date/Time/Personnel: 07/19/2022 15:03 EDT Rare Escherichia coli Few Streptococcus parasanguinis Neisseria gonorrhoeae: Negative Gardnerella vaginalis: Negative Ureaplasma urealyticum: Negative No anaerobes isolated at 5 days. PRELIMINARY REPORTS Preliminary Report [] Verified Date/Time/Personnel: 07/17/2022 11:12 EDT Rare Escherichia coli Few Streptococcus parasanguinis No anaerobes isolated to date. Neisseria gonorrhoeae: Negative Gardnerella vaginalis: Negative Ureaplasma urealyticum: Pending Preliminary Report [] Verified Date/Time/Personnel: 07/17/2022 08:24 EDT Rare Escherichia coli Few Streptococcus parasanguinis MARTINE to follow No anaerobes isolated to date. Neisseria gonorrhoeae: Negative Gardnerella vaginalis: Negative Ureaplasma urealyticum: Pending Preliminary Report [] Verified Date/Time/Personnel: 07/16/2022 11:04 EDT Rare Escherichia coli MARTINE to follow Few Streptococcus parasanguinis MARTINE to follow No anaerobes isolated to date. Preliminary Report [] Verified Date/Time/Personnel: 07/15/2022 12:25 EDT Culture results pending. STAINS GS [] Verified Date/Time/Personnel: 07/14/2022 14:40 EDT 2+ Polymorphonuclear cells 2+ Mononuclear cells Rare Gram Positive Cocci SUSCEPTIBILITY RESULTS Escherichia coli Antibiotic MARTINE Dilut MARTINE Inter Amikacin <=16 Susceptible Amoxicillin/ <=8/4 Susceptible Clavulanate Ampicillin <=8 Susceptible MICRO - Microbiology SUSCEPTIBILITY RESULTS Escherichia coli Antibiotic MARTINE Dilut MARTINE Inter Ampicillin/ <=4/2 Susceptible Sulbactam Aztreonam <=4 Susceptible Cefazolin <=2 Susceptible Cefotaxime <=2 Susceptible Ciprofloxacin <=0.25 Susceptible Ertapenem <=0.5 Susceptible Gentamicin <=2 Susceptible Imipenem <=1 Susceptible Levofloxacin <=0.5 Susceptible Meropenem <=1 Susceptible Minocycline <=4 Susceptible Moxifloxacin <=2 Susceptible Piperacillin/ <=8 Susceptible Tazobactam Tetracycline <=4 Susceptible Trimethoprim/ <=0.5/9.5 Susceptible Sulfa Streptococcus parasanguinis Antibiotic MARTINE Dilut MARTINE Inter Ampicillin <=0.06 Susceptible Azithromycin 2 Resistant Cefotaxime <=0.25 Susceptible Clindamycin <=0.06 Susceptible Levofloxacin 0.5 Susceptible Meropenem <=0.06 Susceptible Penicillin 0.12 Susceptible Tetracycline 2 Susceptible Vancomycin 0.5 Susceptible Performing Locations *1: This test was performed at: [facility], [address] [place] [address], [id number]- , [facility] ([place])07-17-2022 Hospital Discharge instructions Patient Education 07/17/2022 08:44:29 Baby Blues Baby Blues The period begins right after the of a baby. During this time, there is often a lot of sandi and excitement. It is also a time of many changes in the life of the parents. No matter howmany times a mother gives , each child brings new challenges to the family, including different ways of relating to one another. It is common to have feelings of excitement along with confusing changes in moods, emotions, and thoughts. You may feel happy one minute and sad or stressed the next. These feelings of sadness usually happen in the period right after you have your baby, and they go away within a week or two. This is called the baby blues. What are the causes? There is no known cause of baby blues. It is likely caused by a combination of factors. However, changes in hormone levels after childbirth are believed to trigger some of the symptoms. Other factors that can play a role in these mood changes include: Lack of sleep. Stressful life events, such as poverty, caring for a loved one, or of a loved one. Genetics. What are the signs or symptoms? Symptoms of this condition include: Brief changes in mood, such as going from extreme happiness to sadness. Decreased concentration. Difficulty sleeping. Crying spells and tearfulness. Loss of appetite. Irritability. Anxiety. If the symptoms of baby blues last for more than 2 weeks or become more severe, you may have depression. How is this diagnosed? This condition is diagnosed based on an evaluation of your symptoms. There are no medical or lab tests that lead to a diagnosis, but there are various questionnaires that a health care provider may use to identify women with the baby blues or depression. How is this treated? Treatment is not needed for this condition. The baby blues usually go away on their own in 1 2 weeks. Social support is often all that is needed. You will be encouraged to get adequate sleep and rest. Follow these instructions at home: Lifestyle Get as much rest as you can. Take a nap when the baby sleeps. Exercise regularly as told by your health care provider. Some women find yoga and walking to be helpful. Eat a balanced and nourishing diet. This includes plenty of fruits and vegetables, whole grains, and lean proteins. Do little things that you enjoy. Have a cup of tea, take a bubble bath, read your favorite magazine, or listen to your favorite music. Avoid alcohol. Ask for help with yard manager, cooking, grocery shopping, or running errands. Do not try to doeverything yourself. Consider hiring a time study observer to help. This is a professional who specializes in providing support to new mothers. Try not to make any major life changes during or right after giving . This can add stress. General instructions Talk to people close to you about how you are feeling. Get support from your partner, family members, friends, or other new moms. You may want to join a support group. Find ways to cope with stress. This may include: ?Writing your thoughts and feelings in a journal. ?Spending time outside. ?Spending time with people who make you laugh. Try to stay positive in how you think. Think about the things you are grateful for. Take qrdn-flv-mcuhyrp and prescription medicines only as told by your health care provider. Let your health care provider know if you have any concerns. Keep all visits as told by your health care provider. This is important. Contact a health care provider if: Your baby blues do not go away after 2 weeks. Get help right away if: You have thoughts of taking your own life (suicidal thoughts). You think you may harm the baby or other people. You see or hear things that are not there (hallucinations). Summary After giving , you may feel happy one minute and sad or stressed the next. Feelings of sadnessthat happen right after the baby is born and go away after a week or two are called the baby blues. You can manage the baby blues by getting enough rest, eating a healthy diet, exercising, spending time with supportive people, and finding ways to cope with stress. If feelings of sadness and stress last longer than 2 weeks or get in the way of caring for your baby, talk to your health care provider. This may mean you have depression. This information is not intended to replace advice given to you by your health care provider. Make sure you discuss any questions you have with your health care provider. Document Released: 10/28/2004 Document Revised: 05/18/2019 Document Reviewed: 03/22/2017 [employer] Patient Education 2020 [employer] - [employer]. 07/17/2022 08:44:26 7- Section ( Care) (08/2016) (CUSTOM) Section ( Care) These discharge instructions provide you with general information on section (caesarean, cesarian, caesarian) and caring for yourself after you leave the hospital. Your caregiver may also give you specific instructions. Please read these instructions and refer to them in the next few weeks. If you have any problems after discharge, please call your doctor. If you are unable to reach your doctor, you should seek helpat the nearest Emergency Department. ACTIVITY Rest as much as possible the first two weeks at home. When possible, have someone help you with your household activities for 2 to 3 weeks. Limit your housework and social activity. Increase your activity gradually as your strength returns. Do not climb stairs more than two or three times a day. Do not lift anything heavier than 10 pounds. Follow your doctor's instructions about driving a car. Limit wearing support panties or control-top hose, since relying on your own muscles helps strengthen them. Ask your doctor about exercises. NUTRITION You may return to your usual diet. Drink 6 to 8 glasses of fluid a day. Eat a well-balanced diet. Include portions of food from the meat/protein, milk, fruit, vegetable and bread groups. Keep taking your or multivitamins. ELIMINATION You should return to your usual bowel function. If constipation is a problem, you may take a mild laxative such as Milk of Magnesia with your caregiver s permission. Gradually add fruit, vegetables and bran to your diet. Make sure to increase your fluids. HYGIENE You may shower, wash your hair and take tub baths unless your doctor tells you otherwise. Continue annel-care until your vaginal bleeding and discharge stops. Do not douche or use tampons until your caregiver says it is OK. FEVER If you feel feverish or have shaking chills, take your temperature. If your temperature is 101 F (38.3 C), or is 100.4 F (38 C) two times in a four hour period, call your doctor. The fever may indicate infection. If you call early, infection can be treated with medicines that kill germs (antibiotics). Hospitalization may be avoided. PAIN CONTROL You may still have mild discomfort. Only take csmz-fkj-fmikpbf or prescription medicine as directedby your caregiver. Do not take aspirin unless instructed by your physician; it can cause bleeding. If the pain is not relieved by your medicine or becomes worse, call your caregiver. INCISION CARE Clean your cut (incision) gently with soap and water. If your caregiver says it is okay, leave the incision without a dressing unless it is draining or irritated. If you have small adhesive strips across the incision and they do not fall off within 7 days, carefully peel them off. Check the incision daily for increased redness, drainage, swelling or separation of skin. Call your caregiver if any of these happen. VAGINAL CARE You may have a vaginal discharge or bleeding for up to 6 weeks. If the vaginal discharge becomes bright red, bad smelling, heavy in amount, has blood clots or if you have burning or frequency when urinating, call your caregiver. SEXUAL INTERCOURSE No sexual intercourse until seen by your physician. You can become before you have a period. If you decide to have sexual intercourse, you should use control if you do not want to become right away. HEALTH PRACTICES It is still important to have a yearly pelvic exam. Continue monthly self-breast exams and yearly physical exams with a Pap test. BREAST CARE If you are not and your breasts become tender, hard or leak milk, you may wear a firmfitting bra and apply ice to the breasts. If you are , wear a good support bra. Call your caregiver if you have breast pain, flu-like symptoms, fever or hardness and reddening of your breasts. BLUES You may commonly have a period of low spirits or blues. Discuss your feelings with your partner, family and friends. This may be caused by the changing hormone levels in your body. You may want to contact your caregiver if this is worrisome. SEEK MEDICAL CARE IF: You develop a temperature greater than 100.4 degrees Fahrenheit. There is swelling, redness or increasing pain in the wound area. Pus is coming from the wound. You notice a bad smell from the wound or surgical dressing. You have pain, redness and swelling from the intravenous site. The wound is breaking open (the edges are not staying together). You feel dizzy or feel like fainting. You develop pain or bleeding when you urinate. You develop diarrhea. You develop nausea and vomiting. You develop abnormal vaginal discharge. You develop a rash. You have any type of abnormal reaction or develop an allergy to your medication. You need stronger pain medication for your pain. SEEK IMMEDIATE MEDICAL CARE: You develop abdominal pain. You develop chest pain. You develop shortness of breath. You pass out. You develop pain, swelling or redness of your leg. You develop heavy vaginal bleeding with or without blood clots. Document Released: 10/16/2002 Document Re-Released: 11/21/2009 Exit[employer] Patient Information 2010 [employer]. Follow Up Care 06/07/2022 10:10:13 With:[facility] Address: [address] [place], [place] [address] [address]- When:Within 6 Week(s) [facility] 06-10-2023 Note. MICRO - Microbiology PROCEDURE: Urine Culture [*1] SOURCE: Urine, Clean Catch BODY SITE: COLLECTED DATE/TIME: 07/15/2022 09:44 EDT RECEIVED DATE/TIME: 07/15/2022 10:38 EDT START DATE/TIME: 07/15/2022 10:38 EDT FREE TEXT SOURCE: FINAL REPORTS Final Report [] Verified Date/Time/Personnel: 07/17/2022 07:56 EDT No growth at 48 hours. PRELIMINARY REPORTS Preliminary Report [] Verified Date/Time/Personnel: 07/16/2022 09:55 EDT No growth to date Performing Locations *1: This test was performed at: [address], [address]- , [facility] ([place])07-17-2022 Note Discharge Instructions Thank you for allowing [facility] to assist you with your healthcare needs. The following is importantdischarge information regarding your hospital visit. Your Care Team PHYSICIAN, NONE Your Diagnosis Post-op pain What to do next Follow Up Appointments Follow Up with Mookie Gilli[facility] When In 6 weeks Where: [place] [address]- Someone Will Contact You Regarding These Home Health Referrals No home referrals have been ordered for you. No one will call you. The Following Activity and Diet Have Been Ordered for You No qualifying data available. Discharge Diet - Ordered -- No changes were made to your diet during your hospital stay. Please resume your pre hospitalization diet on discharge., 07/17/22 7:09:00 EDT The Following Equipment Has Been Ordered for You No qualifying data available. The Following Treatments Have Been Arranged for You Discharge Labs No qualifying data available. Discharge Radiology No qualifying data available. Other Therapies No qualifying data available. Allergies NKA No Known Medication Allergies Medications Please ask your primary doctor or pharmacist before taking any other medication not listed, including over the counter drugs, herbal medications, vitamins and or supplements as they may interact withyour home medications. What How Much When Why Instructions Last Dose New amoxicillin (amoxicillin 500 mg oral capsule) 1 cap by mouth Every 8 hours Duration: 5 Days Pickup at [facility] #[id number] New ibuprofen (ibuprofen 600 mg oral tablet) 1 tab(s) by mouth Every 6 hours Duration: 14 Days Take with food or milk. Pickup at [facility] #[id number] New metroNIDAZOLE (metroNIDAZOLE 500 mg oral tablet) 1 tab(s) by mouth Every 12 hours Duration: 5 Days Pickup at [facility] #[id number] New oxyCODONE (oxyCODONE 5 mg oral tablet ( IMMEDIATE release )) 1 tab(s) by mouth Every 6 hours Post-op pain Duration: 6 Days Pickup at [facility] #[id number] New senna (Senokot 8.6 mg oral tablet) 1 tab(s) by mouth Daily at bedtime as needed for for constipation Duration: 20 Days Pickup at [facility] #[id number] Unchanged ascorbic acid (Vitamin C) 1,000 Milligram by mouth Once a day Unchanged ferrous sulfate (IRON (ferrous sulfate 325 mg) 65 mg oral tablet) 1 tab(s) by mouth Twice daily with meals Take with food. Unchanged folic acid Once a day Unchanged herbal/ nutritional product ([place] Oil 1000 mg oral capsule) 2,600 Milligram by mouth Every day Unchanged multivitamin, ( Multivitamins with Vitamin B Complex, Vitamin C, Minerals and L-Methylfolate oral capsule) 1 cap by mouth Every day Pharmacy Information [facility] #[id number]: [address], [place] [id number] [phone] What How Much When Comments Stop Taking multivitamin with minerals (Vitamin D with Minerals oral tablet) 1 tab(s) by mouth Once a day Please take this list to your next doctor s visit. Bring all medications you take, including over the counter medications, herbals and other supplements with you to your doctor s visit. Patients and families are reminded to discard old lists and to update any records with all medication providers or retail pharmacies. Education Materials Baby Blues The period begins right after the of a baby. During this time, there is often a lot of sandi and excitement. It is also a time of many changes in the life of the parents. No matter howmany times a mother gives , each child brings new challenges to the family, including different ways of relating to one another. It is common to have feelings of excitement along with confusing changes in moods, emotions, and thoughts. You may feel happy one minute and sad or stressed the next. These feelings of sadness usually happen in the period right after you have your baby, and they go away within a week or two. This is called the baby blues. What are the causes? There is no known cause of baby blues. It is likely caused by a combination of factors. However, changes in hormone levels after childbirth are believed to trigger some of the symptoms. Other factors that can play a role in these mood changes include: Lack of sleep. Stressful life events, such as poverty, caring for a loved one, or of a loved one. Genetics. What are the signs or symptoms? Symptoms of this condition include: Brief changes in mood, such as going from extreme happiness to sadness. Decreased concentration. Difficulty sleeping. Crying spells and tearfulness. Loss of appetite. Irritability. Anxiety. If the symptoms of baby blues last for more than 2 weeks or become more severe, you may have depression. How is this diagnosed? This condition is diagnosed based on an evaluation of your symptoms. There are no medical or lab tests that lead to a diagnosis, but there are various questionnaires that a health care provider may use to identify women with the baby blues or depression. How is this treated? Treatment is not needed for this condition. The baby blues usually go away on their own in 1 2 weeks. Social support is often all that is needed. You will be encouraged to get adequate sleep and rest. Follow these instructions at home: Lifestyle Get as much rest as you can. Take a nap when the baby sleeps. Exercise regularly as told by your health care provider. Some women find yoga and walking to be helpful. Eat a balanced and nourishing diet. This includes plenty of fruits and vegetables, whole grains, and lean proteins. Do little things that you enjoy. Have a cup of tea, take a bubble bath, read your favorite magazine, or listen to your favorite music. Avoid alcohol. Ask for help with yard manager, cooking, grocery shopping, or running errands. Do not try to doeverything yourself. Consider hiring a time study observer to help. This is a professional who specializes in providing support to new mothers. Try not to make any major life changes during or right after giving . This can add stress. General instructions Talk to people close to you about how you are feeling. Get support from your partner, family members, friends, or other new moms. You may want to join a support group. Find ways to cope with stress. This may include: ? Writing your thoughts and feelings in a journal. ? Spending time outside. ? Spending time with people who make you laugh. Try to stay positive in how you think. Think about the things you are grateful for. Take durs-vvm-urfudln and prescription medicines only as told by your health care provider. Let your health care provider know if you have any concerns. Keep all visits as told by your health care provider. This is important. Contact a health care provider if: Your baby blues do not go away after 2 weeks. Get help right away if: You have thoughts of taking your own life (suicidal thoughts). You think you may harm the baby or other people. You see or hear things that are not there (hallucinations). Summary After giving , you may feel happy one minute and sad or stressed the next. Feelings of sadnessthat happen right after the baby is born and go away after a week or two are called the baby blues. You can manage the baby blues by getting enough rest, eating a healthy diet, exercising, spending time with supportive people, and finding ways to cope with stress. If feelings of sadness and stress last longer than 2 weeks or get in the way of caring for your baby, talk to your health care provider. This may mean you have depression. This information is not intended to replace advice given to you by your health care provider. Make sure you discuss any questions you have with your health care provider. Document Released: 10/28/2004 Document Revised: 05/18/2019 Document Reviewed: 03/22/2017 Elsevier Patient Education 2020 [employer] - [employer]. Section ( Care) These discharge instructions provide you with general information on section (caesarean, cesarian, caesarian) and caring for yourself after you leave the hospital. Your caregiver may also give you specific instructions. Please read these instructions and refer to them in the next few weeks. If you have any problems after discharge, please call your doctor. If you are unable to reach your doctor, you should seek helpat the nearest Emergency Department. ACTIVITY Rest as much as possible the first two weeks at home. When possible, have someone help you with your household activities for 2 to 3 weeks. Limit your housework and social activity. Increase your activity gradually as your strength returns. Do not climb stairs more than two or three times a day. Do not lift anything heavier than 10 pounds. Follow your doctor's instructions about driving a car. Limit wearing support panties or control-top hose, since relying on your own muscles helps strengthen them. Ask your doctor about exercises. NUTRITION You may return to your usual diet. Drink 6 to 8 glasses of fluid a day. Eat a well-balanced diet. Include portions of food from the meat/protein, milk, fruit, vegetable and bread groups. Keep taking your or multivitamins. ELIMINATION You should return to your usual bowel function. If constipation is a problem, you may take a mild laxative such as Milk of Magnesia with your caregiver s permission. Gradually add fruit, vegetables and bran to your diet. Make sure to increase your fluids. HYGIENE You may shower, wash your hair and take tub baths unless your doctor tells you otherwise. Continue annel-care until your vaginal bleeding and discharge stops. Do not douche or use tampons until your caregiver says it is OK. FEVER If you feel feverish or have shaking chills, take your temperature. If your temperature is 101 F (38.3 C), or is 100.4 F (38 C) two times in a four hour period, call your doctor. The fever may indicate infection. If you call early, infection can be treated with medicines that kill germs (antibiotics). Hospitalization may be avoided. PAIN CONTROL You may still have mild discomfort. Only take hpcv-evv-ekeskju or prescription medicine as directedby your caregiver. Do not take aspirin unless instructed by your physician; it can cause bleeding. If the pain is not relieved by your medicine or becomes worse, call your caregiver. INCISION CARE Clean your cut (incision) gently with soap and water. If your caregiver says it is okay, leave the incision without a dressing unless it is draining or irritated. If you have small adhesive strips across the incision and they do not fall off within 7 days, carefully peel them off. Check the incision daily for increased redness, drainage, swelling or separation of skin. Call your caregiver if any of these happen. VAGINAL CARE You may have a vaginal discharge or bleeding for up to 6 weeks. If the vaginal discharge becomes bright red, bad smelling, heavy in amount, has blood clots or if you have burning or frequency when urinating, call your caregiver. SEXUAL INTERCOURSE No sexual intercourse until seen by your physician. You can become before you have a period. If you decide to have sexual intercourse, you should use control if you do not want to become right away. HEALTH PRACTICES It is still important to have a yearly pelvic exam. Continue monthly self-breast exams and yearly physical exams with a Pap test. BREAST CARE If you are not and your breasts become tender, hard or leak milk, you may wear a firmfitting bra and apply ice to the breasts. If you are , wear a good support bra. Call your caregiver if you have breast pain, flu-like symptoms, fever or hardness and reddening of your breasts. BLUES You may commonly have a period of low spirits or blues. Discuss your feelings with your partner, family and friends. This may be caused by the changing hormone levels in your body. You may want to contact your caregiver if this is worrisome. SEEK MEDICAL CARE IF: You develop a temperature greater than 100.4 degrees Fahrenheit. There is swelling, redness or increasing pain in the wound area. Pus is coming from the wound. You notice a bad smell from the wound or surgical dressing. You have pain, redness and swelling from the intravenous site. The wound is breaking open (the edges are not staying together). You feel dizzy or feel like fainting. You develop pain or bleeding when you urinate. You develop diarrhea. You develop nausea and vomiting. You develop abnormal vaginal discharge. You develop a rash. You have any type of abnormal reaction or develop an allergy to your medication. You need stronger pain medication for your pain. SEEK IMMEDIATE MEDICAL CARE: You develop abdominal pain. You develop chest pain. You develop shortness of breath. You pass out. You develop pain, swelling or redness of your leg. You develop heavy vaginal bleeding with or without blood clots. Document Released: 10/16/2002 Document Re-Released: 11/21/2009 ExitCare Patient Information 2011 [employer]. Additional Information VACCINATE! IT SAVES LIVES! Members of the community who have not yet received the COVID-19 vaccine and would like to receive it can visit one of [facility] vaccine clinics. There are many vaccine clinic locations within the [facility]. For locations and available times, please visit [email or web address] It is important to note that some COVID mobile vaccine clinics are held outdoors and may be canceled in rainy or stormy conditions. To learn more about pediatric vaccinations (ages 5-11), we invite you to visit the [facility] webpage. [email or web address] learn more about the COVID-19 vaccine, we invite you to visit the CDC website for a list of frequently asked questions. https://www.cdc.gov/coronavirus/2019-ncov/vaccines/faq.html [facility] Patient Portal Access Instructions: Stay connected with your healthcare team and access your personal medical information anytime with the [facility] Patient Portal.If you would like a full copy of your medical records, please contact the [facility] Medical Records Department, Tuesday through Tuesday between 8a.m. and 4:30p.m. Please follow the directions below to access the portal: 1.Access the email account you provided upon registration to the [facility].2.Look for an invitation email from [facility].3.Open the email and access the invitation link: Accept Invitation to [facility]4.Fill in the required haney to create your account. Sign into www.Pingup with your username and password that you created in the above steps to stay up to date. You can then view a summary of results, a summary of your visits, and the ability to download your summaries to your computer or send the information securely to a physician. Remember that your healthcare information is confidential, so carefully consider who you will allow to register on the [facility] Patient Portal for access to your information. You can also access the [facility] Patient Portal on the [employer] anival. Simply click on Health Records under [employer] and then click on the [employer] logo. HOW TO SAFELY DISPOSE OF PRESCRIPTION MEDICATIONS Please use one of the following methods to safely dispose of your unused medications. 1.Use a drug disposal kit: the drug disposal pouch allows you to safely discard your old and unuseddrugs. Ask your nurse to give you one when you are discharged.2.Visit a local take-back location: Many local pharmacies and police departments have programs that collect old and unwanted prescriptiondrugs. Call your local pharmacy or go to http://SportsHedge.Mobi/7I5Jj3g to find one close to you.3.Make use of household items: Use cat litter or old coffee grounds to dispose medications if other options arenot available. Mix your drugs with these household products, seal them in an airtight container andthrow it into the garbage. Call [facility]: [phone] to be sure your drugs can be disposed of in this way. Some medicines may require a different approach.4.Never flush your medications down the toilet. IF YOU HAVE BEEN PRESCRIBED AN OPIOID FOR PAIN If you have been prescribed an opioid (such as hydrocodone, oxycodone or morphine), it is critical to understand the possible side effects and risks of opioid pain medications. Even when taken as directed, opioids can have several side effects including: Tolerance, meaning you might need to take more of a medication for the same pain relief. Nausea, vomiting and/or constipation. Sleepiness, dizziness, dry mouth, confusion, depression or itching. Physical dependence, meaning you have withdrawal symptoms when a medication is stopped, can develop within a few days. KNOW YOUR RESPONSIBILITIES It is important to know exactly how much and how often to take the opioid pain medications you are prescribed. Never take opioids in higher amounts or more often than prescribed. Do not combine opioids with alcohol or other drugs that cause drowsiness, such as benzodiazepines, also known as benzos,including diazepam and alprazolam, muscle relaxants or sleep aids. Never sell or share prescriptionopioids. This is illegal. Store opioids in a secure place and out of reach of others (including children, family, friends and visitors). The last page of this document has been signed and retained as a CHART COPY Signatures Patient Education Materials Baby Blues 7- Section ( Care) (08/2016) (CUSTOM) Medication Leaflets My discharge plan and instructions have been reviewed and explained to me and I,JERMAIN GERARD understand my current condition and have read and understand these discharge instructions. I have received a written copy of the plan/instructions. If I have questions, I am aware that I should contact my doctor. Patient/Compounding Assistant Signature: Date/Time: Relationship to Patient: Witness Name/Signature: Date/Time: [id number] Note OB Discharge Summary Discharge Diagnosis: ( X ) IUP ( ) Preeclampsia ( ) Eclampsia ( ) HELLP syndrome ( ) Gestational diabetes ( ) Chronic HTN ( X ) Other: rapid-responsed to SICU for endometritis complicated by sepsis Procedures: ( ) Spontaneous vaginal delivery ( ) Vacuum assisted vaginal delivery ( ) Forceps assisted vaginal delivery ( ) Vaginal delivery w/tubal ligation ( ) Episiotomy ( X ) Primary Section ( ) Repeat Section ( ) Section w/tubal ligation ( ) D & C ( ) Blood patch ( X ) Epidural Anesthesia ( ) Spinal Anesthesia ( ) Section w/hysterectomy Hospital Course: ( ) Uncomplicated ( X ) See progress notes, SICU transfer Abnormal Lab/Test Value: ( ) None ( X ) See progress notes RH: ( ) N/A ( X ) Rh positive ( ) Rh neg ( ) Rhogam given Rubella: ( X ) Rubella immune ( ) Rubella kmy-zkgyzr-Xmwphqb given ( ) Rubella hac-oszvin-Avyrkfc declined Feeding Veras: ( X ) Breast feeding ( X ) Bottle feeding Consultations/referrals: ( ) None ( ) Social Service ( ) Home Health ( ) Genetics ( ) Perinatology ( ) Surgery ( ) Infectious Disease ( ) Nutrition ( ) Psychiatry ( X ) Anesthesiology ( ) Neurology ( ) Cardiology ( ) Endocrinology ( ) Pulmonology ( ) Other Disposition: Home Condition on Discharge: Stable Follow-up Care: See discharge instructions Other/Comments: Pt to make appointment in 6 weeks. Cont antibiotics on discharge. D/w Dr. Cifuentes Digitally Signed by PEPE SANCHEZ MD on 07/17/2022 08:34 AM [id number] Note Chief Complaint This patient is 22 years old. She is 1 para 1 with at 39 weeks and 2 days. Admitted 07/12/2022 for induction of labor. She is day #1 status post primary low transverse section with reported EBL 800 cc. Course complicated by intraamniotic infection and persistent fevers and tachycardia. The patient was started on Unasyn yesterday but due to the fever and tachycardia today,the antibiotics were broadened to ampicillin, gentamicin, and clindamycin. The patient continued oneal severely tachycardic to the 150s to 160s although she remained normotensive. She was febrile with a temperature of 103.5. CT of the chest showed no pulm embolus. The patient was transferred to theICU for further resuscitation and management of her sepsis. The patient complains of postsurgical abdominal pain. She passed very minimal gas. No bowel movements. No nausea or vomiting. Denies much shortness of breath. Feels palpitations but no chest pain. Nomelena or hematochezia or other signs of bleeding. No cough or sputum production or purulence. Bedside echocardiogram shows preserved LV function In the past 24 hours: The patient's leukocytosis has improved. She has been afebrile. She has been switched to meropenem. Some gas was seen on her pelvic ultrasound. Suspect this is related to surgery. She remains on broad-spectrum antibiotics. Objective Vitals and Measurements T: 36.8 C (Oral) TMIN: 36.6 C (Oral) TMAX: 39.5 C (Oral) HR: 123(Monitored) RR: 22 BP: 133/84 SpO2: 94% Intake and Output 7AM Yesterday to 7AM Today Intake and Output (Last 24 hours) Intake Administration Information 3000.00 Oral Intake 1450.00 Output Urine Voided 1200.00 Urinary Catheter Output: 2950.00 Stool Count 0.00 Total Summary Total Intake 4450.00 Total Output 4150.00 Fluid Balance 300.00 Physical Exam - GENERAL: No acute distress. - HEENT: EOMI. moist mucous membranes. - LUNGS: Clear to auscultation bilaterally. No accessory muscle use. - CARDIOVASCULAR: Regular rate and rhythm. - ABDOMEN: Abdomen wrapped in binder. Soft. Mild tenderness in right and left lower quadrants - EXTREMITIES: No edema. - SKIN: No rashes or lesions. Warm. - NEUROLOGIC: No focal neurological deficits. - PSYCHIATRIC: Cooperative. Appropriate mood and affect. Weight Dosing Weight: 89 kg (07/12/22) Medications Medications (24) Active Scheduled: (9) acetaminophen 500 mg Tablet 1,000 mg 2 tab(s), Oral, q6hr acetaminophen-OXYcodone 325 mg-5 mg Tablet 1 tab(s), Oral, Once docusate-senna (Senokot S) 50 mg-8.6 mg Tablet 1 tab(s), Oral, qHS enoxaparin 40 mg/ 0.4mL syringe 40 mg 0.4 mL, Subcutaneous, qDay ferrous sulfate 325 mg Tablet 325 mg 1 tab(s), Oral, qDay ibuprofen 600 mg tablet 600 mg 1 tab(s), Oral, q6h meropenem 1,000 mg, IV Piggyback, q8hr multivitamin, Multivitamins with Folic Acid 1 mg Tab 1 tab(s), Oral, Daily tetanus/diphth/pertuss (Tdap) adult/adol 5 units-2.5 units-18.5 mcg/0.5 mL (Boostrix) 0.5 mL, Intramuscular, Vaccine Continuous: (2) Lactated Ringers 1,000 mL 1,000 mL, Intravenous, 125 mL/hr Oxytocin 20 units in Lactated Ringers 1000 mL 20 unit(s) + LR Premix Diluent 1,000 mL 1,000 mL, Intravenous PRN: (13) benzocaine topical 20% Ointment 1 anival, Perineum, AsDirected diphenhyDRAMINE 50 mg/mL (1 mL) INJ 12.5 mg 0.25 mL, IV Push, q6h docusate sodium 100 mg Capsule 100 mg 1 cap(s), Oral, qDay glycerin-witch aníbal topical 10%-50% Pad 1 anival, Topical, AsDirected hydrocortisone topical 25 mg rectal supp 25 mg 1 supp, Rectal, BID hydrocortisone-pramoxine topical 2.5%-1% Cream 4 gram(s) 1 anival, Rectal, QID lanolin (purified) 7 gram(s) 1 EA, Topical, AsDirected ondansetron 2 mg/ 1 mL 2 mL INJ 4 mg 2 mL, IV Push, q8h ondansetron 4 mg tablet 4 mg 1 tab(s), Oral, q8h oxycodone 5 mg tablet (immediate release) 10 mg 2 tab(s), Oral, q4h oxycodone 5 mg tablet (immediate release) 5 mg 1 tab(s), Oral, q4h RHo (D) immune globulin 300 mcg/2 mL Soln 300 mcg 2 mL, Intramuscular, AsDirected simethicone 80 mg Chewable 80 mg 1 tab(s), Chewed, TID Lab Results 07/16 03:52 WBC: 11.0 H Hgb: 8.5 L Hct: 24.8 L Platelet: 192 Neutrophil %: 89.0 H Glucose Level: 84 Sodium Level: 144 Potassium Level: 3.7 BUN: 7.0 L Creatinine Lvl (s): 0.57 07/15 13:26 WBC: 21.9 H Hgb: 9.0 L Hct: 26.5 L Platelet: 211 Glucose Level: 103 Sodium Level: 137 Potassium Level: 3.5 BUN: 9.0 Creatinine Lvl (s): 0.63 07/15 08:21 WBC: 22.7 H Hgb: 10.1 L Hct: 29.7 L Platelet: 223 Glucose Level: 90 Sodium Level: 137 Potassium Level: 3.8 BUN: 11.0 Creatinine Lvl (s): 0.66 07/15 04:34 WBC: 21.6 H Hgb: 9.6 L Hct: 28.2 L Platelet: 196 Neutrophil %: 92.5 H EKG Electrocardiogram (EKG) - InProcess -- 07/15/22 14:21:00 EDT Assessment/Plan Post-op pain 1. Sepsis. Concern for intraamniotic infection. Ultrasound this afternoon suggests endometritis 2. Day #1 s/p low transverse section 3. Severe tachycardia secondary to sepsis 4. Remote history of asthma but without acute exacerbation Plan: 1. Patient has a regular diet ordered. If tolerates diet, will stop IV fluids 2. Antibiotics with meropenem, responding well. 3. Pancultured. Results pending 4. 5. DVT prophylaxis with enoxaparin 40 mg daily 6. Monitor electrolytes and hemogram Discussed with patient and with mother at the bedside Discussed with the SICU team Patient is stable for transfer out of the ICU from the intensive standpoint Digitally Signed by ESTEVAN RAMÍREZ MD on 07/16/2022 09:24 AM [id number] Note Date of Service 07/15/2022 Chief Complaint The patient was transferred to the intensive care unit after rapid response was called for concern regarding systemic infection and sepsis. Subjective This patient is 22 years old. She is 1 para 1 with at 39 weeks and 2 days. Admitted 07/12/2022 for induction of labor. She is day #1 status post primary low transverse section with reported EBL 800 cc. Course complicated by intraamniotic infection and persistent fevers and tachycardia. The patient was started on Unasyn yesterday but due to the fever and tachycardia today,the antibiotics were broadened to ampicillin, gentamicin, and clindamycin. The patient continued oneal severely tachycardic to the 150s to 160s although she remained normotensive. She was febrile with a temperature of 103.5. CT of the chest showed no pulm embolus. The patient was transferred to theICU for further resuscitation and management of her sepsis. The patient complains of postsurgical abdominal pain. She passed very minimal gas. No bowel movements. No nausea or vomiting. Denies much shortness of breath. Feels palpitations but no chest pain. Nomelena or hematochezia or other signs of bleeding. No cough or sputum production or purulence. Bedside echocardiogram shows preserved LV function The patient is generally healthy. This is her first and was uneventful overall. She has history of remote asthma but does not use inhalers. 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 No smoking or drug use. Objective Vitals and Measurements T: 37.2 C (Oral) TMIN: 37.0 C (Oral) TMAX: 39.5 C (Oral) HR: 135(Monitored) RR: 21 BP: 109/70 SpO2:95% Physical Exam The patient is awake and alert. Appears to be quite weak. No acute distress. Heart is tachycardic. Face is flushed. Neck supple and chest is symmetrical lungs are clear bilaterally. Heart is tachycardic with a pronounced S4 gallop. Abdomen is postsurgical and tender. Distended with decreased bowel sounds. Extremities show no edema clubbing or cyanosis or skin rash. Weight Dosing Weight: 89 kg (07/12/22) Medications Medications (25) Active Scheduled: (10) acetaminophen 500 mg Tablet 1,000 mg 2 tab(s), Oral, q6hr acetaminophen-OXYcodone 325 mg-5 mg Tablet 1 tab(s), Oral, Once clindamycin PMX 900 mg 50 mL, IV Piggyback, q8h docusate-senna (Senokot S) 50 mg-8.6 mg Tablet 1 tab(s), Oral, qHS enoxaparin 40 mg/ 0.4mL syringe 40 mg 0.4 mL, Subcutaneous, qDay ferrous sulfate 325 mg Tablet 325 mg 1 tab(s), Oral, qDay ibuprofen 600 mg tablet 600 mg 1 tab(s), Oral, q6h meropenem 1,000 mg, IV Piggyback, q8hr multivitamin, Multivitamins with Folic Acid 1 mg Tab 1 tab(s), Oral, Daily tetanus/diphth/pertuss (Tdap) adult/adol 5 units-2.5 units-18.5 mcg/0.5 mL (Boostrix) 0.5 mL, Intramuscular, Vaccine Continuous: (2) Lactated Ringers 1,000 mL 1,000 mL, Intravenous, 125 mL/hr Oxytocin 20 units in Lactated Ringers 1000 mL 20 unit(s) + LR Premix Diluent 1,000 mL 1,000 mL, Intravenous PRN: (13) benzocaine topical 20% Ointment 1 anival, Perineum, AsDirected diphenhyDRAMINE 50 mg/mL (1 mL) INJ 12.5 mg 0.25 mL, IV Push, q6h docusate sodium 100 mg Capsule 100 mg 1 cap(s), Oral, qDay glycerin-witch aníbal topical 10%-50% Pad 1 anival, Topical, AsDirected hydrocortisone topical 25 mg rectal supp 25 mg 1 supp, Rectal, BID hydrocortisone-pramoxine topical 2.5%-1% Cream 4 gram(s) 1 anival, Rectal, QID lanolin (purified) 7 gram(s) 1 EA, Topical, AsDirected ondansetron 2 mg/ 1 mL 2 mL INJ 4 mg 2 mL, IV Push, q8h ondansetron 4 mg tablet 4 mg 1 tab(s), Oral, q8h oxycodone 5 mg tablet (immediate release) 10 mg 2 tab(s), Oral, q4h oxycodone 5 mg tablet (immediate release) 5 mg 1 tab(s), Oral, q4h RHo (D) immune globulin 300 mcg/2 mL Soln 300 mcg 2 mL, Intramuscular, AsDirected simethicone 80 mg Chewable 80 mg 1 tab(s), Chewed, TID Lab Results 07/15 13:26 WBC: 21.9 H Hgb: 9.0 L Hct: 26.5 L Platelet: 211 Glucose Level: 103 Sodium Level: 137 Potassium Level: 3.5 BUN: 9.0 Creatinine Lvl (s): 0.63 07/15 08:21 WBC: 22.7 H Hgb: 10.1 L Hct: 29.7 L Platelet: 223 Glucose Level: 90 Sodium Level: 137 Potassium Level: 3.8 BUN: 11.0 Creatinine Lvl (s): 0.66 07/15 04:34 WBC: 21.6 H Hgb: 9.6 L Hct: 28.2 L Platelet: 196 Neutrophil %: 92.5 H Imaging Results and Diagnostics CT of the chest is essentially benign. No pulm embolus or infiltrates or effusions. Assessment/Plan 1. Sepsis. Concern for intraamniotic infection. Ultrasound this afternoon suggests endometritis 2. Day #1 s/p low transverse section 3. Severe tachycardia secondary to sepsis 4. Remote history of asthma but without acute exacerbation Plan: 1. Monitor in the surgical intensive care unit 2. Aggressive IV fluid replacement therapy 3. Antibiotics with clindamycin, ampicillin, and gentamicin per OB service 4. Pancultured. Results pending 5. DVT prophylaxis with enoxaparin 40 mg daily 6. Monitor electrolytes and hemogram Discussed with patient and with mother at the bedside Discussed with the SICU team Time Spent 30 minutes of critical care time Digitally Signed by JOMAR MARIE MD on 07/15/2022 05:59 PM [id number] Note ORIGINAL EXAMINATION: PELVIC ULTRASOUND 07/15/2022 TECHNIQUE: Transabdominal pelvic ultrasound with ovarian Doppler. COMPARISON: [facility] 08/12/2021 HISTORY: ORDERING SYSTEM PROVIDED HISTORY: Reason for Exam: Possible endometritis, fevers of unknown origin, post-op Postop FINDINGS: Measurements: Uterus: 21.5 x 14.3 x 9.1 cm Endometrial stripe: 2.5 cm Right Ovary:Not visualized. Left Ovary: Not visualized. Ultrasound Findings: Uterus/endometrium: Enlarged uterus demonstrates heterogenous myometrial echotexture. Hypervascularity within the myometrium anteriorly. Prominent, slightly heterogenous endometrium. Doppler flow present within the endometrium. Right Ovary: Not visualized. Left Ovary: Not visualized. Free Fluid: Small volume free fluid within the pouch of Koby. IMPRESSION: Findings consistent with uterus. Doppler flow present within a prominent endometrium; retained products of conception cannot be excluded. Nonvisualized ovaries. ATTENDING ADDENDUM by Dr. Dov Clifford at 5:06 pm on 07/15/2022. Irregular endometrial reverberation artifacts are probably gas locules, raising suspicion for endometritis. Doppler flow can be seen with RPOC but remains suspicious for endometritis. Findings were discussed via Cortext with OBGYN resident Dr. CARLITO CENTENO at 5:07 pm on 07/15/2022. I have personally reviewed the images of this examination and edited the resident's findings and interpretation. RECOMMENDATIONS: Unavailable Interpreted by: Dov Clifford DO Preliminary Report By: Kadeem Raymond Electronically signed By Dov Clifford DO Dictated Date: 07/15/2022 4:20:45 PM Prelim Date: 07/15/2022 4:30:46 PM Sign Date: 07/15/2022 5:09:33 PM Ordering Provider: CARLITO CENTENO [id number] Note If ancillary studies were utilized, the following Laboratory Developed Test (LDT) disclaimer will apply: Under CLIA requirements, [facility] is qualified to perform high complexity testing. For all ancillary stains, positive and negative controls stain appropriately. Performance characteristics of immunohistochemical and chromogenic in-situ hybridization tests have been deter mined by [facility]. These tests are used for clinical purposes, They should not be regarded as investigational or for research. [facility] 06-08-2023 Note If ancillary studies were utilized, the following Laboratory Developed Test (LDT) disclaimer will apply: Under CLIA requirements, [facility] is qualified to perform high complexity testing. For all ancillary stains, positive and negative controls stain appropriately. Performance characteristics of immunohistochemical and chromogenic in-situ hybridization tests have been deter mined by [facility]. These tests are used for clinical purposes, They should not be regarded as investigational or for research. [facility] 06-08-2023 Note ORIGINAL EXAMINATION: PELVIC ULTRASOUND 07/15/2022 TECHNIQUE: Transabdominal pelvic ultrasound with ovarian Doppler. [place] [facility] [place] HISTORY: ORDERING SYSTEM PROVIDED HISTORY: Reason for Exam: Possible endometritis, fevers of unknown origin, post-op Postop FINDINGS: Measurements: Uterus: 21.5 x 14.3 x 9.1 cm Endometrial stripe: 2.5 cm Right Ovary:Not visualized. Left Ovary: Not visualized. Ultrasound Findings: Uterus/endometrium: Enlarged uterus demonstrates heterogenous myometrial echotexture. Hypervascularity within the myometrium anteriorly. Prominent, slightly heterogenous endometrium. Doppler flow present within the endometrium. Right Ovary: Not visualized. Left Ovary: Not visualized. Free Fluid: Small volume free fluid within the pouch of Koby. IMPRESSION: Findings consistent with uterus. Doppler flow present within a prominent endometrium; retained products of conception cannot be excluded. Nonvisualized ovaries. ATTENDING ADDENDUM by Dr. Dov Clifford at 5:06 pm on 07/15/2022. Irregular endometrial reverberation artifacts are probably gas locules, raising suspicion for endometritis. Doppler flow can be seen with RPOC but remains suspicious for endometritis. Findings were discussed via Cortext with OBGYN resident Dr. CARLITO CENTENO at 5:07 pm on 07/15/2022. I have personally reviewed the images of this examination and edited the resident's findings and interpretation. RECOMMENDATIONS: Unavailable Interpreted by: Dov Clifford DO Preliminary Report By: Kadeem Raymond Electronically signed By Dov Clifford DO Dictated Date: 07/15/2022 4:20:45 PM Prelim Date: 07/15/2022 4:30:46 PM Sign Date: 07/15/2022 5:09:33 PM Ordering Provider: [facility]06-08-2023 Nurse Progress note mother not feeling well, getting an IV restarted, will check back with later once feeling better. Digitally Signed by BERTHA Nagy on 07/15/2022 01:44 PM [id number] ORIGINAL EXAMINATION: CTA OF THE CHEST 07/15/2022 12:35 pm TECHNIQUE: CTA of the chest was performed after the administration of intravenous contrast. Multiplanar reformatted images are provided for review. MIP images are provided for review. Automated exposure control, iterative reconstruction, and/or weight based adjustment of the mA/kV was utilized to reduce the radiation dose to as low as reasonably achievable. COMPARISON: None. HISTORY: ORDERING SYSTEM PROVIDED HISTORY: Reason for Exam: S/P C SECTION 07/14/22,RAPID HR,SOB,CHILLS tachycardia, postop FINDINGS: Pulmonary Arteries: Opacification of the pulmonary arteries is limited secondary to altered physiology from status. Exam is also limited due to bolus timing. Repeat was attempted with only minimal improvement. Within these limitations no large central pulmonary embolism is appreciated. The pulmonary artery is dilated consistent with increased volume from . There is somewhat heterogenous enhancement of left lower lobar pulmonary arteries. This is likely from streak artifact/bolus timing however underlying pulmonary embolism cannot be fully excluded. Mediastinum: The heart is mildly enlarged secondary to altered physiology. RV to LV ratio is maintained less than 1. No regurgitation of contrast to the IVC/hepatic veins to suggest right heart dysfunction. No evidence of mediastinal lymphadenopathy. The heart and pericardium demonstrate no acute abnormality. There is no acute abnormality of the thoracic aorta. Lungs/pleura: The lungs demonstrate bibasilar dependent atelectasis and are otherwise clear. No focal consolidation or pulmonary edema. No evidence of pleural effusion or pneumothorax. Upper Abdomen: Limited images of the upper abdomen are unremarkable. Soft Tissues/Bones: No acute bone or soft tissue abnormality. IMPRESSION: Limited exam secondary to altered physiology and bolus timing. Within limitations no large central pulmonary embolism is appreciated. Slightly heterogenous appearance of the left lower lobar pulmonary arteries likely artifactual. If clinical symptoms persist and there is continued concern a V/Q scan may be of benefit. Bibasilar dependent atelectasis. No evidence of right heart strain. Interpreted by: Thor Mckee MD Preliminary Report By: Thor Mckee MD Electronically signed By Thor Mckee MD Dictated Date: 07/15/2022 12:52:16 PM Prelim Date: 07/15/2022 12:59:44 PM Sign Date: 07/15/2022 12:59:44 PM Ordering Provider: [facility]06-08-2023 Note ORIGINAL EXAMINATION: CTA OF THE CHEST 07/15/2022 12:35 pm TECHNIQUE: CTA of the chest was performed after the administration of intravenous contrast. Multiplanar reformatted images are provided for review. MIP images are provided for review. Automated exposure control, iterative reconstruction, and/or weight based adjustment of the mA/kV was utilized to reduce the radiation dose to as low as reasonably achievable. COMPARISON: None. HISTORY: ORDERING SYSTEM PROVIDED HISTORY: Reason for Exam: S/P C SECTION 07/14/22,RAPID HR,SOB,CHILLS tachycardia, postop FINDINGS: Pulmonary Arteries: Opacification of the pulmonary arteries is limited secondary to altered physiology from status. Exam is also limited due to bolus timing. Repeat was attempted with only minimal improvement. Within these limitations no large central pulmonary embolism is appreciated. The pulmonary artery is dilated consistent with increased volume from . There is somewhat heterogenous enhancement of left lower lobar pulmonary arteries. This is likely from streak artifact/bolus timing however underlying pulmonary embolism cannot be fully excluded. Mediastinum: The heart is mildly enlarged secondary to altered physiology. RV to LV ratio is maintained less than 1. No regurgitation of contrast to the IVC/hepatic veins to suggest right heart dysfunction. No evidence of mediastinal lymphadenopathy. The heart and pericardium demonstrate no acute abnormality. There is no acute abnormality of the thoracic aorta. Lungs/pleura: The lungs demonstrate bibasilar dependent atelectasis and are otherwise clear. No focal consolidation or pulmonary edema. No evidence of pleural effusion or pneumothorax. Upper Abdomen: Limited images of the upper abdomen are unremarkable. Soft Tissues/Bones: No acute bone or soft tissue abnormality. IMPRESSION: Limited exam secondary to altered physiology and bolus timing. Within limitations no large central pulmonary embolism is appreciated. Slightly heterogenous appearance of the left lower lobar pulmonary arteries likely artifactual. If clinical symptoms persist and there is continued concern a V/Q scan may be of benefit. Bibasilar dependent atelectasis. No evidence of right heart strain. Interpreted by: Thor Mckee MD Preliminary Report By: Thor Mckee MD Electronically signed By Thor Mckee MD Dictated Date: 07/15/2022 12:52:16 PM Prelim Date: 07/15/2022 12:59:44 PM Sign Date: 07/15/2022 12:59:44 PM Ordering Provider: [facility]06-07-2023 Anesthesiology Consult note Patient: JERMAIN GERARD Age: 22 years Sex: Female : 2000 Associated Diagnoses: None Author: KHADIJAH NEVAREZ MD Postoperative Information LATE ENTRY: Patient assessed postoperatively and vitals reviewed. Stable at the time of PACU discharge. Assessment Postanesthesia assessment Vitals: Vital signs from flowsheet : Vital Signs 07/14/2022 19:30 EDT Temperature Oral 37.0 DegC Heart Rate Monitored 107 bpm HI Respiratory Rate 18 br/min Systolic Blood Pressure Non-Invasive 112 mmHg Diastolic Blood Pressure Non-Invasive 54 mmHg LOW Reason For Taking VItal Signs Routine 07/14/2022 15:16 EDT Temperature Oral 36.8 DegC Heart Rate Monitored 96 bpm Respiratory Rate 18 br/min Systolic Blood Pressure Non-Invasive 98 mmHg Diastolic Blood Pressure Non-Invasive 59 mmHg LOW Reason For Taking VItal Signs Routine 07/14/2022 13:58 EDT Respiratory Rate 20 br/min 07/14/2022 13:00 EDT Temperature Oral 36.6 DegC Heart Rate Monitored 98 bpm Respiratory Rate 18 br/min Systolic Blood Pressure Non-Invasive 104 mmHg Diastolic Blood Pressure Non-Invasive 68 mmHg 07/14/2022 11:55 EDT Respiratory Rate 18 br/min 07/14/2022 11:15 EDT Respiratory Rate 16 br/min 07/14/2022 10:00 EDT Respiratory Rate 18 br/min 07/14/2022 9:15 EDT Respiratory Rate 16 br/min 07/14/2022 7:54 EDT Temperature Oral 36.5 DegC Heart Rate Monitored 100 bpm Respiratory Rate 16 br/min Systolic Blood Pressure Non-Invasive 102 mmHg Diastolic Blood Pressure Non-Invasive 52 mmHg LOW Reason For Taking VItal Signs Routine 07/14/2022 5:25 EDT Temperature Oral 36.9 DegC Heart Rate Monitored 95 bpm Respiratory Rate 18 br/min Systolic Blood Pressure Non-Invasive 118 mmHg Diastolic Blood Pressure Non-Invasive 70 mmHg 07/14/2022 4:45 EDT Heart Rate Monitored 103 bpm HI Respiratory Rate 26 br/min HI Systolic Blood Pressure Non-Invasive 105 mmHg Diastolic Blood Pressure Non-Invasive 66 mmHg 07/14/2022 4:30 EDT Heart Rate Monitored 103 bpm HI Respiratory Rate 22 br/min HI Systolic Blood Pressure Non-Invasive 99 mmHg Diastolic Blood Pressure Non-Invasive 65 mmHg 07/14/2022 4:15 EDT Heart Rate Monitored 92 bpm Respiratory Rate 19 br/min Systolic Blood Pressure Non-Invasive 105 mmHg Diastolic Blood Pressure Non-Invasive 66 mmHg 07/14/2022 4:00 EDT Heart Rate Monitored 102 bpm HI Respiratory Rate 21 br/min HI Systolic Blood Pressure Non-Invasive 96 mmHg Diastolic Blood Pressure Non-Invasive 59 mmHg LOW 07/14/2022 3:45 EDT Temperature Oral 36.4 DegC Temperature (Route Not Specified) 36 DegC DegC Heart Rate Monitored 92 bpm Respiratory Rate 21 br/min HI Systolic Blood Pressure Non-Invasive 101 mmHg Diastolic Blood Pressure Non-Invasive 55 mmHg LOW 07/14/2022 3:40 EDT Respiratory Rate - Anes 0 br/min br/min 07/14/2022 3:37 EDT Systolic Blood Pressure Non-Invasive 105 mmHg mmHg Diastolic Blood Pressure Non-Invasive 60 mmHg mmHg 07/14/2022 3:35 EDT Heart Rate Monitored 94 bpm bpm Respiratory Rate - Anes 25 br/min br/min 07/14/2022 3:34 EDT Systolic Blood Pressure Non-Invasive 105 mmHg mmHg Diastolic Blood Pressure Non-Invasive 53 mmHg mmHg 07/14/2022 3:31 EDT Systolic Blood Pressure Non-Invasive 104 mmHg mmHg Diastolic Blood Pressure Non-Invasive 56 mmHg mmHg 07/14/2022 3:30 EDT Temperature (Route Not Specified) 36 DegC DegC Heart Rate Monitored 97 bpm bpm Respiratory Rate - Anes 4 br/min br/min 07/14/2022 3:28 EDT Systolic Blood Pressure Non-Invasive 102 mmHg mmHg Diastolic Blood Pressure Non-Invasive 56 mmHg mmHg 07/14/2022 3:25 EDT Heart Rate Monitored 105 bpm bpm Respiratory Rate - Anes 22 br/min br/min Systolic Blood Pressure Non-Invasive 104 mmHg mmHg Diastolic Blood Pressure Non-Invasive 58 mmHg mmHg 07/14/2022 3:22 EDT Systolic Blood Pressure Non-Invasive 103 mmHg mmHg Diastolic Blood Pressure Non-Invasive 53 mmHg mmHg 07/14/2022 3:20 EDT Heart Rate Monitored 99 bpm bpm Respiratory Rate - Anes 27 br/min br/min 07/14/2022 3:19 EDT Systolic Blood Pressure Non-Invasive 101 mmHg mmHg Diastolic Blood Pressure Non-Invasive 45 mmHg mmHg 07/14/2022 3:16 EDT Systolic Blood Pressure Non-Invasive 100 mmHg mmHg Diastolic Blood Pressure Non-Invasive 48 mmHg mmHg 07/14/2022 3:15 EDT Temperature (Route Not Specified) 36 DegC DegC Heart Rate Monitored 105 bpm bpm Respiratory Rate - Anes 24 br/min br/min 07/14/2022 3:13 EDT Systolic Blood Pressure Non-Invasive 101 mmHg mmHg Diastolic Blood Pressure Non-Invasive 48 mmHg mmHg 07/14/2022 3:10 EDT Heart Rate Monitored 103 bpm bpm Respiratory Rate - Anes 26 br/min br/min Systolic Blood Pressure Non-Invasive 101 mmHg mmHg Diastolic Blood Pressure Non-Invasive 47 mmHg mmHg 07/14/2022 3:07 EDT Systolic Blood Pressure Non-Invasive 99 mmHg mmHg Diastolic Blood Pressure Non-Invasive 48 mmHg mmHg 07/14/2022 3:05 EDT Heart Rate Monitored 98 bpm bpm Respiratory Rate - Anes 29 br/min br/min 07/14/2022 3:04 EDT Systolic Blood Pressure Non-Invasive 95 mmHg mmHg Diastolic Blood Pressure Non-Invasive 45 mmHg mmHg 07/14/2022 3:01 EDT Systolic Blood Pressure Non-Invasive 101 mmHg mmHg Diastolic Blood Pressure Non-Invasive 45 mmHg mmHg 07/14/2022 3:00 EDT Temperature (Route Not Specified) 36 DegC DegC Heart Rate Monitored 112 bpm bpm Respiratory Rate - Anes 48 br/min br/min 07/14/2022 2:58 EDT Systolic Blood Pressure Non-Invasive 85 mmHg mmHg Diastolic Blood Pressure Non-Invasive 45 mmHg mmHg 07/14/2022 2:55 EDT Heart Rate Monitored 106 bpm bpm Respiratory Rate - Anes 31 br/min br/min Systolic Blood Pressure Non-Invasive 97 mmHg mmHg Diastolic Blood Pressure Non-Invasive 45 mmHg mmHg 07/14/2022 2:52 EDT Systolic Blood Pressure Non-Invasive 96 mmHg mmHg Diastolic Blood Pressure Non-Invasive 56 mmHg mmHg 07/14/2022 2:50 EDT Heart Rate Monitored 105 bpm bpm Respiratory Rate - Anes 31 br/min br/min 07/14/2022 2:49 EDT Systolic Blood Pressure Non-Invasive 99 mmHg mmHg Diastolic Blood Pressure Non-Invasive 46 mmHg mmHg 07/14/2022 2:46 EDT Systolic Blood Pressure Non-Invasive 103 mmHg mmHg Diastolic Blood Pressure Non-Invasive 49 mmHg mmHg 07/14/2022 2:45 EDT Temperature (Route Not Specified) 36 DegC DegC Heart Rate Monitored 106 bpm bpm Respiratory Rate - Anes 34 br/min br/min 07/14/2022 2:43 EDT Systolic Blood Pressure Non-Invasive 106 mmHg mmHg Diastolic Blood Pressure Non-Invasive 46 mmHg mmHg 07/14/2022 2:40 EDT Heart Rate Monitored 103 bpm bpm Respiratory Rate - Anes 38 br/min br/min Systolic Blood Pressure Non-Invasive 101 mmHg mmHg Diastolic Blood Pressure Non-Invasive 52 mmHg mmHg 07/14/2022 2:37 EDT Systolic Blood Pressure Non-Invasive 109 mmHg mmHg Diastolic Blood Pressure Non-Invasive 57 mmHg mmHg 07/14/2022 2:35 EDT Heart Rate Monitored 113 bpm bpm Respiratory Rate - Anes 0 br/min br/min 07/14/2022 2:31 EDT Temperature (Route Not Specified) 36 DegC DegC 07/14/2022 2:22 EDT Heart Rate Monitored 114 bpm HI Systolic Blood Pressure Non-Invasive 131 mmHg Diastolic Blood Pressure Non-Invasive 63 mmHg 07/14/2022 2:15 EDT Heart Rate Monitored 114 bpm HI Systolic Blood Pressure Non-Invasive 131 mmHg Diastolic Blood Pressure Non-Invasive 63 mmHg 07/14/2022 2:00 EDT Heart Rate Monitored 110 bpm HI Systolic Blood Pressure Non-Invasive 146 mmHg HI Diastolic Blood Pressure Non-Invasive 76 mmHg 07/14/2022 1:45 EDT Heart Rate Monitored 121 bpm HI Systolic Blood Pressure Non-Invasive 134 mmHg Diastolic Blood Pressure Non-Invasive 79 mmHg 07/14/2022 1:15 EDT Heart Rate Monitored 118 bpm HI Systolic Blood Pressure Non-Invasive 98 mmHg Diastolic Blood Pressure Non-Invasive 50 mmHg 07/14/2022 1:00 EDT Temperature Oral 36.7 DegC Systolic Blood Pressure Non-Invasive 147 mmHg HI Diastolic Blood Pressure Non-Invasive 125 mmHg >HHI 07/14/2022 0:45 EDT Heart Rate Monitored 98 bpm Systolic Blood Pressure Non-Invasive 139 mmHg Diastolic Blood Pressure Non-Invasive 68 mmHg 07/14/2022 0:30 EDT Heart Rate Monitored 93 bpm Systolic Blood Pressure Non-Invasive 139 mmHg Diastolic Blood Pressure Non-Invasive 79 mmHg 07/14/2022 0:15 EDT Heart Rate Monitored 89 bpm Systolic Blood Pressure Non-Invasive 131 mmHg Diastolic Blood Pressure Non-Invasive 76 mmHg 07/14/2022 0:00 EDT Heart Rate Monitored 92 bpm Systolic Blood Pressure Non-Invasive 146 mmHg HI Diastolic Blood Pressure Non-Invasive 79 mmHg 07/13/2022 23:45 EDT Heart Rate Monitored 98 bpm Systolic Blood Pressure Non-Invasive 136 mmHg Diastolic Blood Pressure Non-Invasive 92 mmHg HI 07/13/2022 23:30 EDT Heart Rate Monitored 79 bpm Systolic Blood Pressure Non-Invasive 133 mmHg Diastolic Blood Pressure Non-Invasive 81 mmHg 07/13/2022 23:15 EDT Systolic Blood Pressure Non-Invasive 133 mmHg Diastolic Blood Pressure Non-Invasive 80 mmHg 07/13/2022 23:00 EDT Temperature Oral 36.7 DegC Heart Rate Monitored 81 bpm Systolic Blood Pressure Non-Invasive 116 mmHg Diastolic Blood Pressure Non-Invasive 79 mmHg 07/13/2022 22:45 EDT Heart Rate Monitored 98 bpm Systolic Blood Pressure Non-Invasive 128 mmHg Diastolic Blood Pressure Non-Invasive 76 mmHg 07/13/2022 22:30 EDT Heart Rate Monitored 87 bpm Systolic Blood Pressure Non-Invasive 139 mmHg Diastolic Blood Pressure Non-Invasive 84 mmHg 07/13/2022 22:15 EDT Heart Rate Monitored 80 bpm Systolic Blood Pressure Non-Invasive 127 mmHg Diastolic Blood Pressure Non-Invasive 87 mmHg 07/13/2022 22:00 EDT Heart Rate Monitored 86 bpm Systolic Blood Pressure Non-Invasive 118 mmHg Diastolic Blood Pressure Non-Invasive 100 mmHg >HHI 07/13/2022 21:45 EDT Heart Rate Monitored 103 bpm HI Systolic Blood Pressure Non-Invasive 114 mmHg Diastolic Blood Pressure Non-Invasive 92 mmHg HI 07/13/2022 21:30 EDT Heart Rate Monitored 188 bpm HI Systolic Blood Pressure Non-Invasive 109 mmHg Diastolic Blood Pressure Non-Invasive 54 mmHg LOW 07/13/2022 21:15 EDT Heart Rate Monitored 79 bpm Systolic Blood Pressure Non-Invasive 113 mmHg Diastolic Blood Pressure Non-Invasive 70 mmHg 07/13/2022 21:00 EDT Temperature Oral 37.1 DegC Heart Rate Monitored 78 bpm Systolic Blood Pressure Non-Invasive 111 mmHg Diastolic Blood Pressure Non-Invasive 66 mmHg 07/13/2022 20:45 EDT Heart Rate Monitored 100 bpm Systolic Blood Pressure Non-Invasive 111 mmHg Diastolic Blood Pressure Non-Invasive 63 mmHg 07/13/2022 20:30 EDT Heart Rate Monitored 82 bpm Systolic Blood Pressure Non-Invasive 117 mmHg Diastolic Blood Pressure Non-Invasive 74 mmHg 07/13/2022 20:15 EDT Heart Rate Monitored 79 bpm Systolic Blood Pressure Non-Invasive 113 mmHg Diastolic Blood Pressure Non-Invasive 64 mmHg 07/13/2022 20:00 EDT Heart Rate Monitored 86 bpm Systolic Blood Pressure Non-Invasive 106 mmHg Diastolic Blood Pressure Non-Invasive 77 mmHg 07/13/2022 19:45 EDT Heart Rate Monitored 113 bpm HI Systolic Blood Pressure Non-Invasive 108 mmHg Diastolic Blood Pressure Non-Invasive 62 mmHg 07/13/2022 19:30 EDT Heart Rate Monitored 79 bpm Systolic Blood Pressure Non-Invasive 103 mmHg Diastolic Blood Pressure Non-Invasive 60 mmHg 07/13/2022 19:15 EDT Heart Rate Monitored 73 bpm Systolic Blood Pressure Non-Invasive 112 mmHg Diastolic Blood Pressure Non-Invasive 74 mmHg 07/13/2022 19:00 EDT Temperature Oral 36.8 DegC Heart Rate Monitored 72 bpm Systolic Blood Pressure Non-Invasive 110 mmHg Diastolic Blood Pressure Non-Invasive 72 mmHg 07/13/2022 18:45 EDT Heart Rate Monitored 69 bpm Systolic Blood Pressure Non-Invasive 108 mmHg Diastolic Blood Pressure Non-Invasive 68 mmHg 07/13/2022 18:30 EDT Heart Rate Monitored 82 bpm Systolic Blood Pressure Non-Invasive 96 mmHg Diastolic Blood Pressure Non-Invasive 47 mmHg 07/13/2022 18:15 EDT Heart Rate Monitored 78 bpm Systolic Blood Pressure Non-Invasive 100 mmHg Diastolic Blood Pressure Non-Invasive 58 mmHg LOW 07/13/2022 17:45 EDT Temperature Oral 36.8 DegC Heart Rate Monitored 75 bpm Respiratory Rate 18 br/min Systolic Blood Pressure Non-Invasive 94 mmHg Diastolic Blood Pressure Non-Invasive 52 mmHg LOW 07/13/2022 17:30 EDT Heart Rate Monitored 75 bpm Systolic Blood Pressure Non-Invasive 119 mmHg Diastolic Blood Pressure Non-Invasive 81 mmHg 07/13/2022 17:15 EDT Heart Rate Monitored 83 bpm Systolic Blood Pressure Non-Invasive 124 mmHg Diastolic Blood Pressure Non-Invasive 71 mmHg 07/13/2022 17:00 EDT Heart Rate Monitored 89 bpm Systolic Blood Pressure Non-Invasive 113 mmHg Diastolic Blood Pressure Non-Invasive 65 mmHg 07/13/2022 16:45 EDT Heart Rate Monitored 83 bpm Systolic Blood Pressure Non-Invasive 115 mmHg Diastolic Blood Pressure Non-Invasive 70 mmHg 07/13/2022 16:30 EDT Heart Rate Monitored 75 bpm Systolic Blood Pressure Non-Invasive 122 mmHg Diastolic Blood Pressure Non-Invasive 68 mmHg 07/13/2022 16:15 EDT Heart Rate Monitored 74 bpm Systolic Blood Pressure Non-Invasive 120 mmHg Diastolic Blood Pressure Non-Invasive 74 mmHg 07/13/2022 16:00 EDT Heart Rate Monitored 72 bpm Systolic Blood Pressure Non-Invasive 103 mmHg Diastolic Blood Pressure Non-Invasive 57 mmHg LOW 07/13/2022 15:45 EDT Temperature Oral 36.8 DegC Heart Rate Monitored 72 bpm Respiratory Rate 16 br/min Systolic Blood Pressure Non-Invasive 123 mmHg Diastolic Blood Pressure Non-Invasive 75 mmHg 07/13/2022 15:30 EDT Heart Rate Monitored 73 bpm Systolic Blood Pressure Non-Invasive 117 mmHg Diastolic Blood Pressure Non-Invasive 73 mmHg 07/13/2022 15:15 EDT Heart Rate Monitored 72 bpm Systolic Blood Pressure Non-Invasive 118 mmHg Diastolic Blood Pressure Non-Invasive 75 mmHg 07/13/2022 15:00 EDT Heart Rate Monitored 69 bpm Systolic Blood Pressure Non-Invasive 117 mmHg Diastolic Blood Pressure Non-Invasive 73 mmHg 07/13/2022 14:45 EDT Heart Rate Monitored 72 bpm Systolic Blood Pressure Non-Invasive 116 mmHg Diastolic Blood Pressure Non-Invasive 71 mmHg 07/13/2022 14:30 EDT Heart Rate Monitored 73 bpm Systolic Blood Pressure Non-Invasive 107 mmHg Diastolic Blood Pressure Non-Invasive 65 mmHg 07/13/2022 14:15 EDT Heart Rate Monitored 84 bpm Systolic Blood Pressure Non-Invasive 99 mmHg Diastolic Blood Pressure Non-Invasive 61 mmHg 07/13/2022 14:00 EDT Heart Rate Monitored 85 bpm Systolic Blood Pressure Non-Invasive 104 mmHg Diastolic Blood Pressure Non-Invasive 58 mmHg LOW 07/13/2022 13:45 EDT Heart Rate Monitored 75 bpm Systolic Blood Pressure Non-Invasive 118 mmHg Diastolic Blood Pressure Non-Invasive 66 mmHg 07/13/2022 13:30 EDT Heart Rate Monitored 80 bpm Systolic Blood Pressure Non-Invasive 122 mmHg Diastolic Blood Pressure Non-Invasive 68 mmHg 07/13/2022 13:15 EDT Heart Rate Monitored 77 bpm Systolic Blood Pressure Non-Invasive 111 mmHg Diastolic Blood Pressure Non-Invasive 72 mmHg 07/13/2022 13:00 EDT Heart Rate Monitored 75 bpm Systolic Blood Pressure Non-Invasive 122 mmHg Diastolic Blood Pressure Non-Invasive 76 mmHg 07/13/2022 12:45 EDT Temperature Oral 36.8 DegC Heart Rate Monitored 76 bpm Respiratory Rate 16 br/min Systolic Blood Pressure Non-Invasive 117 mmHg Diastolic Blood Pressure Non-Invasive 77 mmHg 07/13/2022 12:30 EDT Heart Rate Monitored 75 bpm Systolic Blood Pressure Non-Invasive 117 mmHg Diastolic Blood Pressure Non-Invasive 71 mmHg 07/13/2022 12:15 EDT Heart Rate Monitored 76 bpm Systolic Blood Pressure Non-Invasive 118 mmHg Diastolic Blood Pressure Non-Invasive 72 mmHg 07/13/2022 12:00 EDT Heart Rate Monitored 82 bpm Systolic Blood Pressure Non-Invasive 125 mmHg Diastolic Blood Pressure Non-Invasive 77 mmHg 07/13/2022 11:45 EDT Heart Rate Monitored 72 bpm Systolic Blood Pressure Non-Invasive 122 mmHg Diastolic Blood Pressure Non-Invasive 76 mmHg 07/13/2022 11:30 EDT Heart Rate Monitored 72 bpm Systolic Blood Pressure Non-Invasive 121 mmHg Diastolic Blood Pressure Non-Invasive 77 mmHg 07/13/2022 11:15 EDT Heart Rate Monitored 81 bpm Systolic Blood Pressure Non-Invasive 96 mmHg Diastolic Blood Pressure Non-Invasive 65 mmHg 07/13/2022 11:00 EDT Heart Rate Monitored 77 bpm Systolic Blood Pressure Non-Invasive 99 mmHg Diastolic Blood Pressure Non-Invasive 64 mmHg 07/13/2022 10:45 EDT Heart Rate Monitored 72 bpm Systolic Blood Pressure Non-Invasive 104 mmHg Diastolic Blood Pressure Non-Invasive 64 mmHg 07/13/2022 10:30 EDT Temperature Oral 36.8 DegC Heart Rate Monitored 77 bpm Systolic Blood Pressure Non-Invasive 99 mmHg Diastolic Blood Pressure Non-Invasive 58 mmHg LOW 07/13/2022 10:15 EDT Heart Rate Monitored 76 bpm Systolic Blood Pressure Non-Invasive 107 mmHg Diastolic Blood Pressure Non-Invasive 60 mmHg 07/13/2022 10:00 EDT Heart Rate Monitored 76 bpm Systolic Blood Pressure Non-Invasive 111 mmHg Diastolic Blood Pressure Non-Invasive 59 mmHg LOW 07/13/2022 9:45 EDT Heart Rate Monitored 72 bpm Systolic Blood Pressure Non-Invasive 113 mmHg Diastolic Blood Pressure Non-Invasive 71 mmHg 07/13/2022 9:35 EDT Temperature Oral 36.8 DegC Respiratory Rate 16 br/min 07/13/2022 9:30 EDT Heart Rate Monitored 79 bpm Systolic Blood Pressure Non-Invasive 117 mmHg Diastolic Blood Pressure Non-Invasive 78 mmHg 07/13/2022 9:15 EDT Heart Rate Monitored 86 bpm Systolic Blood Pressure Non-Invasive 106 mmHg Diastolic Blood Pressure Non-Invasive 69 mmHg 07/13/2022 9:00 EDT Heart Rate Monitored 104 bpm HI Systolic Blood Pressure Non-Invasive 85 mmHg LOW Diastolic Blood Pressure Non-Invasive 26 mmHg 07/13/2022 8:45 EDT Heart Rate Monitored 70 bpm Systolic Blood Pressure Non-Invasive 106 mmHg Diastolic Blood Pressure Non-Invasive 70 mmHg 07/13/2022 8:30 EDT Heart Rate Monitored 75 bpm Systolic Blood Pressure Non-Invasive 104 mmHg Diastolic Blood Pressure Non-Invasive 71 mmHg 07/13/2022 8:15 EDT Heart Rate Monitored 74 bpm Systolic Blood Pressure Non-Invasive 116 mmHg Diastolic Blood Pressure Non-Invasive 62 mmHg 07/13/2022 8:02 EDT Heart Rate Monitored 101 bpm HI Systolic Blood Pressure Non-Invasive 104 mmHg Diastolic Blood Pressure Non-Invasive 59 mmHg LOW 07/13/2022 8:00 EDT Heart Rate Monitored 85 bpm Systolic Blood Pressure Non-Invasive 151 mmHg HI (Modified) Diastolic Blood Pressure Non-Invasive 115 mmHg >HHI (Modified) 07/13/2022 7:45 EDT Heart Rate Monitored 87 bpm Systolic Blood Pressure Non-Invasive 120 mmHg Diastolic Blood Pressure Non-Invasive 86 mmHg 07/13/2022 7:30 EDT Temperature Oral 36.7 DegC Heart Rate Monitored 83 bpm Respiratory Rate 16 br/min Systolic Blood Pressure Non-Invasive 125 mmHg Diastolic Blood Pressure Non-Invasive 98 mmHg HI 07/13/2022 7:15 EDT Heart Rate Monitored 86 bpm Systolic Blood Pressure Non-Invasive 110 mmHg Diastolic Blood Pressure Non-Invasive 82 mmHg 07/13/2022 7:00 EDT Heart Rate Monitored 79 bpm Systolic Blood Pressure Non-Invasive 125 mmHg Diastolic Blood Pressure Non-Invasive 77 mmHg 07/13/2022 6:45 EDT Heart Rate Monitored 82 bpm Systolic Blood Pressure Non-Invasive 123 mmHg Diastolic Blood Pressure Non-Invasive 85 mmHg 07/13/2022 6:30 EDT Heart Rate Monitored 83 bpm Systolic Blood Pressure Non-Invasive 130 mmHg Diastolic Blood Pressure Non-Invasive 87 mmHg 07/13/2022 6:15 EDT Heart Rate Monitored 79 bpm Systolic Blood Pressure Non-Invasive 116 mmHg Diastolic Blood Pressure Non-Invasive 78 mmHg 07/13/2022 6:00 EDT Heart Rate Monitored 77 bpm Systolic Blood Pressure Non-Invasive 130 mmHg Diastolic Blood Pressure Non-Invasive 86 mmHg 07/13/2022 5:45 EDT Heart Rate Monitored 77 bpm Systolic Blood Pressure Non-Invasive 120 mmHg Diastolic Blood Pressure Non-Invasive 82 mmHg 07/13/2022 5:30 EDT Heart Rate Monitored 79 bpm Systolic Blood Pressure Non-Invasive 128 mmHg Diastolic Blood Pressure Non-Invasive 80 mmHg 07/13/2022 5:15 EDT Heart Rate Monitored 87 bpm Systolic Blood Pressure Non-Invasive 124 mmHg Diastolic Blood Pressure Non-Invasive 69 mmHg 07/13/2022 4:45 EDT Heart Rate Monitored 109 bpm HI Systolic Blood Pressure Non-Invasive 124 mmHg Diastolic Blood Pressure Non-Invasive 94 mmHg HI 07/13/2022 4:30 EDT Heart Rate Monitored 86 bpm Systolic Blood Pressure Non-Invasive 119 mmHg Diastolic Blood Pressure Non-Invasive 68 mmHg 07/13/2022 4:15 EDT Heart Rate Monitored 75 bpm Systolic Blood Pressure Non-Invasive 111 mmHg Diastolic Blood Pressure Non-Invasive 61 mmHg 07/13/2022 4:00 EDT Heart Rate Monitored 70 bpm Systolic Blood Pressure Non-Invasive 114 mmHg Diastolic Blood Pressure Non-Invasive 72 mmHg 07/13/2022 3:30 EDT Heart Rate Monitored 73 bpm Systolic Blood Pressure Non-Invasive 117 mmHg Diastolic Blood Pressure Non-Invasive 67 mmHg 07/13/2022 3:15 EDT Heart Rate Monitored 72 bpm Systolic Blood Pressure Non-Invasive 105 mmHg Diastolic Blood Pressure Non-Invasive 72 mmHg 07/13/2022 3:00 EDT Heart Rate Monitored 70 bpm Systolic Blood Pressure Non-Invasive 103 mmHg Diastolic Blood Pressure Non-Invasive 67 mmHg 07/13/2022 2:45 EDT Heart Rate Monitored 70 bpm Systolic Blood Pressure Non-Invasive 108 mmHg Diastolic Blood Pressure Non-Invasive 71 mmHg 07/13/2022 2:30 EDT Heart Rate Monitored 73 bpm Systolic Blood Pressure Non-Invasive 110 mmHg Diastolic Blood Pressure Non-Invasive 72 mmHg 07/13/2022 2:15 EDT Heart Rate Monitored 73 bpm Systolic Blood Pressure Non-Invasive 115 mmHg Diastolic Blood Pressure Non-Invasive 74 mmHg 07/13/2022 2:00 EDT Heart Rate Monitored 73 bpm Systolic Blood Pressure Non-Invasive 110 mmHg Diastolic Blood Pressure Non-Invasive 63 mmHg 07/13/2022 1:45 EDT Heart Rate Monitored 72 bpm Systolic Blood Pressure Non-Invasive 125 mmHg Diastolic Blood Pressure Non-Invasive 77 mmHg 07/13/2022 1:30 EDT Heart Rate Monitored 73 bpm Systolic Blood Pressure Non-Invasive 107 mmHg Diastolic Blood Pressure Non-Invasive 65 mmHg 07/13/2022 1:15 EDT Heart Rate Monitored 87 bpm Systolic Blood Pressure Non-Invasive 113 mmHg Diastolic Blood Pressure Non-Invasive 76 mmHg 07/13/2022 0:45 EDT Heart Rate Monitored 70 bpm Systolic Blood Pressure Non-Invasive 108 mmHg Diastolic Blood Pressure Non-Invasive 69 mmHg 07/13/2022 0:30 EDT Heart Rate Monitored 74 bpm Systolic Blood Pressure Non-Invasive 104 mmHg Diastolic Blood Pressure Non-Invasive 76 mmHg 07/13/2022 0:15 EDT Heart Rate Monitored 73 bpm Systolic Blood Pressure Non-Invasive 116 mmHg Diastolic Blood Pressure Non-Invasive 71 mmHg 07/13/2022 0:00 EDT Heart Rate Monitored 63 bpm Systolic Blood Pressure Non-Invasive 117 mmHg Diastolic Blood Pressure Non-Invasive 79 mmHg , Oxygen Therapy : Oxygen Therapy & Oxygenation Information 07/14/2022 19:30 EDT Oxygen Saturation 97 % 07/14/2022 15:16 EDT Oxygen Saturation 99 % 07/14/2022 13:00 EDT Oxygen Saturation 100 % 07/14/2022 7:54 EDT Oxygen Saturation 98 % 07/14/2022 5:25 EDT Oxygen Saturation 95 % 07/14/2022 4:45 EDT Oxygen Therapy Room air Oxygen Saturation 96 % 07/14/2022 4:30 EDT Oxygen Therapy Room air Oxygen Saturation 94 % 07/14/2022 4:15 EDT Oxygen Therapy Room air Oxygen Saturation 94 % 07/14/2022 4:00 EDT Oxygen Therapy Room air Oxygen Saturation 94 % 07/14/2022 3:45 EDT Oxygen Therapy Room air Oxygen Saturation 97 % 07/14/2022 3:35 EDT Oxygen Saturation 96.6 % % 07/14/2022 3:30 EDT Oxygen Saturation 96.4 % % 07/14/2022 3:25 EDT Oxygen Saturation 96.6 % % 07/14/2022 3:20 EDT Oxygen Saturation 96.9 % % 07/14/2022 3:15 EDT Oxygen Saturation 96.2 % % 07/14/2022 3:10 EDT Oxygen Saturation 97.6 % % 07/14/2022 3:05 EDT Oxygen Saturation 97.6 % % 07/14/2022 3:00 EDT Oxygen Saturation 95 % % 07/14/2022 2:55 EDT Oxygen Saturation 93.2 % % 07/14/2022 2:50 EDT Oxygen Saturation 92.9 % % 07/14/2022 2:45 EDT Oxygen Saturation 94.1 % % 07/14/2022 2:40 EDT Oxygen Saturation 94.5 % % 07/14/2022 2:35 EDT Oxygen Saturation 95.1 % % 07/14/2022 2:22 EDT Oxygen Saturation 98 % 07/14/2022 2:15 EDT Oxygen Saturation 98 % 07/14/2022 1:45 EDT Oxygen Saturation 98 % 07/14/2022 1:30 EDT Oxygen Saturation 98 % 07/14/2022 1:15 EDT Oxygen Saturation 99 % 07/14/2022 1:00 EDT Oxygen Saturation 98 % 07/14/2022 0:45 EDT Oxygen Saturation 100 % 07/14/2022 0:30 EDT Oxygen Saturation 100 % 07/14/2022 0:15 EDT Oxygen Saturation 97 % 07/14/2022 0:00 EDT Oxygen Saturation 100 % 07/13/2022 23:45 EDT Oxygen Saturation 100 % 07/13/2022 23:30 EDT Oxygen Saturation 100 % 07/13/2022 23:15 EDT Oxygen Saturation 100 % 07/13/2022 23:00 EDT Oxygen Saturation 99 % 07/13/2022 22:45 EDT Oxygen Saturation 98 % 07/13/2022 22:30 EDT Oxygen Saturation 100 % 07/13/2022 22:15 EDT Oxygen Saturation 100 % 07/13/2022 22:00 EDT Oxygen Saturation 100 % 07/13/2022 21:45 EDT Oxygen Saturation 100 % 07/13/2022 21:30 EDT Oxygen Saturation 100 % 07/13/2022 21:15 EDT Oxygen Saturation 100 % 07/13/2022 21:00 EDT Oxygen Saturation 100 % 07/13/2022 20:45 EDT Oxygen Saturation 99 % 07/13/2022 20:30 EDT Oxygen Saturation 100 % 07/13/2022 20:15 EDT Oxygen Saturation 100 % 07/13/2022 20:00 EDT Oxygen Saturation 99 % 07/13/2022 19:45 EDT Oxygen Saturation 100 % 07/13/2022 19:30 EDT Oxygen Saturation 100 % 07/13/2022 19:15 EDT Oxygen Saturation 99 % 07/13/2022 19:00 EDT Oxygen Saturation 99 % 07/13/2022 18:45 EDT Oxygen Saturation 99 % 07/13/2022 18:30 EDT Oxygen Saturation 98 % 07/13/2022 18:15 EDT Oxygen Saturation 98 % 07/13/2022 17:45 EDT Oxygen Saturation 99 % 07/13/2022 17:30 EDT Oxygen Saturation 100 % 07/13/2022 17:15 EDT Oxygen Saturation 100 % 07/13/2022 17:00 EDT Oxygen Saturation 98 % 07/13/2022 16:45 EDT Oxygen Saturation 99 % 07/13/2022 16:30 EDT Oxygen Saturation 100 % 07/13/2022 16:15 EDT Oxygen Saturation 100 % 07/13/2022 16:00 EDT Oxygen Saturation 99 % 07/13/2022 15:45 EDT Oxygen Saturation 98 % 07/13/2022 15:30 EDT Oxygen Saturation 99 % 07/13/2022 15:15 EDT Oxygen Saturation 98 % 07/13/2022 15:00 EDT Oxygen Saturation 98 % 07/13/2022 14:45 EDT Oxygen Saturation 99 % 07/13/2022 14:30 EDT Oxygen Saturation 98 % 07/13/2022 14:15 EDT Oxygen Saturation 98 % 07/13/2022 14:00 EDT Oxygen Saturation 99 % 07/13/2022 13:45 EDT Oxygen Saturation 99 % 07/13/2022 13:30 EDT Oxygen Saturation 99 % 07/13/2022 13:15 EDT Oxygen Saturation 100 % 07/13/2022 13:00 EDT Oxygen Saturation 100 % 07/13/2022 12:45 EDT Oxygen Saturation 98 % 07/13/2022 12:30 EDT Oxygen Saturation 99 % 07/13/2022 12:15 EDT Oxygen Saturation 99 % 07/13/2022 12:00 EDT Oxygen Saturation 100 % 07/13/2022 11:45 EDT Oxygen Saturation 100 % 07/13/2022 11:30 EDT Oxygen Saturation 100 % 07/13/2022 11:15 EDT Oxygen Saturation 99 % 07/13/2022 11:00 EDT Oxygen Saturation 99 % 07/13/2022 10:45 EDT Oxygen Saturation 99 % 07/13/2022 10:30 EDT Oxygen Saturation 100 % 07/13/2022 10:15 EDT Oxygen Saturation 97 % 07/13/2022 10:00 EDT Oxygen Saturation 98 % 07/13/2022 9:45 EDT Oxygen Saturation 99 % 07/13/2022 9:30 EDT Oxygen Saturation 99 % 07/13/2022 9:15 EDT Oxygen Saturation 100 % 07/13/2022 9:00 EDT Oxygen Saturation 100 % 07/13/2022 8:45 EDT Oxygen Saturation 97 % 07/13/2022 8:30 EDT Oxygen Saturation 98 % 07/13/2022 8:15 EDT Oxygen Saturation 98 % 07/13/2022 8:00 EDT Oxygen Saturation 99 % 07/13/2022 7:45 EDT Oxygen Saturation 100 % 07/13/2022 7:30 EDT Oxygen Therapy Room air Oxygen Saturation 100 % 07/13/2022 7:15 EDT Oxygen Saturation 100 % 07/13/2022 7:00 EDT Oxygen Saturation 99 % 07/13/2022 6:45 EDT Oxygen Saturation 100 % 07/13/2022 6:30 EDT Oxygen Saturation 99 % 07/13/2022 6:15 EDT Oxygen Saturation 100 % 07/13/2022 6:00 EDT Oxygen Saturation 99 % 07/13/2022 5:45 EDT Oxygen Saturation 100 % 07/13/2022 5:30 EDT Oxygen Saturation 100 % 07/13/2022 5:15 EDT Oxygen Saturation 100 % 07/13/2022 5:00 EDT Oxygen Saturation 100 % 07/13/2022 4:45 EDT Oxygen Saturation 100 % 07/13/2022 4:30 EDT Oxygen Saturation 100 % 07/13/2022 4:15 EDT Oxygen Saturation 100 % 07/13/2022 4:00 EDT Oxygen Saturation 99 % 07/13/2022 3:45 EDT Oxygen Saturation 99 % 07/13/2022 3:30 EDT Oxygen Saturation 99 % 07/13/2022 3:15 EDT Oxygen Saturation 99 % 07/13/2022 3:00 EDT Oxygen Saturation 99 % 07/13/2022 2:45 EDT Oxygen Saturation 99 % 07/13/2022 2:30 EDT Oxygen Saturation 99 % 07/13/2022 2:15 EDT Oxygen Saturation 100 % 07/13/2022 2:00 EDT Oxygen Saturation 100 % 07/13/2022 1:45 EDT Oxygen Saturation 100 % 07/13/2022 1:30 EDT Oxygen Saturation 100 % 07/13/2022 1:15 EDT Oxygen Saturation 100 % 07/13/2022 1:00 EDT Oxygen Saturation 100 % 07/13/2022 0:45 EDT Oxygen Saturation 99 % 07/13/2022 0:30 EDT Oxygen Saturation 98 % 07/13/2022 0:15 EDT Oxygen Saturation 98 % 07/13/2022 0:00 EDT Oxygen Saturation 99 % . Mental status: at preoperative baseline. Respiratory function: respirations are non-labored. Respiratory support: none. CV function: sinus tachycardia. Cardiovascular support: none. Pain. Nausea status: see nursing documentation of medications. Postoperative hydration status: within normal limits. Digitally Signed by KHADIJAH NEVAREZ MD on 07/14/2022 09:17 PM [id number] Progress note Spoke with mom, pumping to establish milk supply for baby, pumping assessment done, using 24mm flanges, to pump on a comfortable setting, reviewed pumping guideline for now, q 2 hrs x 15 mins with one 4 rest, transfer of milk to ICU, questions answered, support given Digitally Signed by Amparo Woodruff LPN on 07/14/2022 03:43 PM [id number] Note If ancillary studies were utilized, the following Laboratory Developed Test (LDT) disclaimer will apply: Under CLIA requirements, [facility] is qualified to perform high complexity testing. For all ancillary stains, positive and negative controls stain appropriately. Performance characteristics of immunohistochemical and chromogenic in-situ hybridization tests have been deter mined by [facility]. These tests are used for clinical purposes, They should not be regarded as investigational or for research. [facility] 06-07-2023 Note If ancillary studies were utilized, the following Laboratory Developed Test (LDT) disclaimer will apply: Under CLIA requirements, [facility] is qualified to perform high complexity testing. For all ancillary stains, positive and negative controls stain appropriately. Performance characteristics of immunohistochemical and chromogenic in-situ hybridization tests have been deter mined by [facility]. These tests are used for clinical purposes, They should not be regarded as investigational or for research. [facility] 06-07-2023 Note If ancillary studies were utilized, the following Laboratory Developed Test (LDT) disclaimer will apply: Under CLIA requirements, [facility] is qualified to perform high complexity testing. For all ancillary stains, positive and negative controls stain appropriately. Performance characteristics of immunohistochemical and chromogenic in-situ hybridization tests have been deter mined by [facility]. These tests are used for clinical purposes, They should not be regarded as investigational or for research. [facility] 06-07-2023 Note If ancillary studies were utilized, the following Laboratory Developed Test (LDT) disclaimer will apply: Under CLIA requirements, [facility] is qualified to perform high complexity testing. For all ancillary stains, positive and negative controls stain appropriately. Performance characteristics of immunohistochemical and chromogenic in-situ hybridization tests have been deter mined by [facility]. These tests are used for clinical purposes, They should not be regarded as investigational or for research. [facility] 06-07-2023 Note If ancillary studies were utilized, the following Laboratory Developed Test (LDT) disclaimer will apply: Under CLIA requirements, [facility] is qualified to perform high complexity testing. For all ancillary stains, positive and negative controls stain appropriately. Performance characteristics of immunohistochemical and chromogenic in-situ hybridization tests have been deter mined by [facility]. These tests are used for clinical purposes, They should not be regarded as investigational or for research. [facility] 06-05-2023 Anesthesiology Progress note Patient: JERMAIN GREARD Age: 22 years Sex: Female : 2000 Associated Diagnoses: None Author: EBONY CHEN APRN-AMEE Preoperative Information Procedure/ Case: IOL Anesthesia history Patient's history: negative. Family's history: negative. Review of Systems Ear/Nose/Mouth/Throat: Negative. Respiratory: Negative. Cardiovascular: Negative. Gastrointestinal: Heartburn. Genitourinary: Negative. Endocrine: Negative. Musculoskeletal: Negative. Integumentary: Negative. Neurologic: Negative. Reproductive: Para Scoring . Health Status Allergies: Allergic Reactions (Selected) NKA No Known Medication Allergies, Allergies (2) ActiveReaction NKANone Documented No Known Medication AllergiesNone Documented Current medications: (Selected) Inpatient Medications Ordered LR 1,000 mL: 125 mL/hr, Intravenous Oxytocin for IV (mL/hr) 20 unit(s) + LR Premix Diluent 1,000 mL: after delivery of placenta, see order comments, Intravenous Pepcid: 20 mg, 2 mL, IV Push, qDay, PRN: Dyspepsia Zofran: 4 mg, 2 mL, IV Push, q4h, PRN: Nausea/Vomiting Documented Medications Documented Evening [place] Oil 1000 mg oral capsule: 2,600 mg, Oral, Daily, 0 Refill(s) IRON (ferrous sulfate 325 mg) 65 mg oral tablet: 325 mg, 1 tab(s), Oral, BIDM, Take with food., 60 tab(s), 3 Refill(s) Multivitamins with Vitamin B Complex, Vitamin C, Minerals and L- Methylfolate oral capsule...: 1 cap(s), Oral, Daily, 0 Refill(s) Vitamin C: 1,000 mg, Oral, qDay, 0 Refill(s) folic acid: qDay, 0 Refill(s), Medications (4) Active Scheduled: (0) Continuous: (2) Lactated Ringers 1,000 mL 1,000 mL, Intravenous, 125 mL/hr Oxytocin 20 units in Lactated Ringers 1000 mL 20 unit(s) + LR Premix Diluent 1,000 mL 1,000 mL, Intravenous PRN: (2) famotidine 20 mg/2 mL vial 20 mg 2 mL, IV Push, qDay ondansetron 2 mg/ 1 mL 2 mL INJ 4 mg 2 mL, IV Push, q4h Problem list: Medical Body mass index 30+ - obesity / SNOMED CT 019143706 / Confirmed / SNOMED CT 993005374 / Confirmed / SNOMED CT [id number] / Confirmed, Active Problems (3) Body mass index 30+ - obesity Histories Family History: No family history items have been selected or recorded. Procedure history: [place] tooth ([id number]) on 07/29/2021 at 21 Years. Social History Social & Psychosocial Habits No Data Available . Physical Examination Vital Signs 07/12/2022 11:51 EDT Temperature Oral 36.9 DegC Heart Rate Monitored 98 bpm Respiratory Rate 16 br/min Systolic Blood Pressure Non-Invasive 125 mmHg Diastolic Blood Pressure Non-Invasive 82 mmHg Vital Signs(last 24 hrs) Last Charted Temp Oral36.9 DegC (JUL 12 11:51) Heart Rate Agfuxdwac70 bpm (JUL 12 11:51) Resp Rate 16 br/min (JUL 12 11:51) QEB685 mmHg (JUL 12 11:51) DBP82 mmHg (JUL 12 11:51) BMI34.51 (JUL 12 11:28) Measurements from flowsheet : Measurements 07/12/2022 11:28 EDT Height 160.6 cm Admission Weight 89 kg Lyle Body Weight 52.93 kg BSA Admission 1.92 Body Mass Index 34.51 kg/m2 Pain assessment: Pain Assessment 07/12/2022 11:51 EDT Primary Pain Intensity 0 Pain Scale Type 0-10 Pain scale . General: Alert and oriented, No acute distress. Airway: Normal temporomandibular joint mobility, Nares patent, Normal mouth, Trachea midline. Mallampati classification: III (soft palate, base of uvula visible). Head: Normocephalic. Dentition Evaluation: Intact, Own teeth. Neck: Supple, Non-tender, Full range of motion. Respiratory: Respirations are non-labored. Cardiovascular: Normal rate. Gastrointestinal: Soft, Non-tender. Musculoskeletal Normal range of motion. No deformity. Integumentary: Intact, Warm, Dry, [place]. Neurologic: Alert, Oriented, Normal sensory. Review / Management Results review: Labs (Last four charted values) WBC 10.3(JUL 12) Hgb L 11.8(JUL 12) Hct 34.4(JUL 12) Plt 266(JUL 12) , Lab results 07/12/2022 13:15 EDT Activity Status ADL Awake Standard Safety Safety level maintained 07/12/2022 13:00 EDT Uterine Contraction Monitoring Method Palpation Uterine Contraction Intensity, Ext Palp Mild Uterine Resting Tone, External Soft Uterine Activity Irregular contractions Baby A FHR Baseline: 130 bpm FHR Baseline Variability: Moderate variability FHR Accelerations: Present FHR Deceleration: Absent FHR Monitoring Method: External US transducer 07/12/2022 12:59 EDT Monitoring Annotations Tocotransducer adjusted 07/12/2022 12:59 EDT Monitoring Annotations Primary nurse at bedside; Ultrasound transducer adjusted 07/12/2022 12:53 EDT Monitoring Annotations Primary nurse at bedside; patient up to the bathroom 07/12/2022 12:13 EDT Cervix Dilation 1 cm 07/12/2022 12:12 EDT Monitoring Annotations Primary nurse at bedside; Vaginal exam performed byDr Pérez 07/12/2022 11:51 EDT Temperature Oral 36.9 DegC Heart Rate Monitored 98 bpm Respiratory Rate 16 br/min Systolic Blood Pressure Non-Invasive 125 mmHg Diastolic Blood Pressure Non-Invasive 82 mmHg Primary Pain Intensity 0 Pain Scale Type 0-10 Pain scale Dorsalis Pedis Pulse, Left 2+ Normal Dorsalis Pedis Pulse, Right 2+ Normal Respirations Unlabored Respiratory Pattern Regular Oxygen Therapy Room air Oxygen Saturation 100 % Abdomen Description Non-distended, Soft, Rounded Bowel Sounds All Quadrants Present Urinary Elimination Voiding, no difficulties Skin Temperature Warm Skin Description Normal for ethnicity Skin Integrity Intact Sensory Perception Glenn No impairment Moisture Glenn Rarely moist Activity Glenn Walks frequently Mobility Glenn No limitations Nutrition Glenn Adequate Friction and Shear Glenn No apparent problem Glenn Score 22 Hospital Acquired Pressure Injury Risk None/minimal risk (score 19-23) Hand Right 20 gauge Peripheral IV Activity: Insert new site Peripheral IV Dressing Condition: Clean, Dry, Intact Peripheral IV Dressing Activity: Applied Peripheral IV Line Status/Patency: Flushes easily, Good blood return Peripheral IV Site Condition: No complications Strength All Extremities Strong Tone All Extremities Normal Wang Screen Admission History of Fall in Last 3 Months Wang No Presence of Secondary Diagnosis Wang Yes Use of Ambulatory Aid Wang None, bedrest, wheelchair, nurse IV/PRN Adapter Fall Risk Wang Yes Gait Weak or Impaired Fall Risk Wang Normal, bedrest, immobile Mental Status Fall Risk Wang Oriented to own ability Wang Fall Risk Score 35 Violence Risk Confused No Violence Risk Irritable No Violence Risk Boisterous No Violence Risk Verbal Threats No Violence Risk Physical Threats No Violence Risk Attacking Objects No Violence Risk Predictor Score 0 Violence Risk Intervention None Violence Risk Current Interventions None Ambulation Repositions self Activity Status ADL Awake Standard Safety ID band on, Call device within reach, Bed in low position, Wheels locked, Upper/Half-Length side-rails up, Phone within reach, personal items within reach, Visitor at bedside, Safety level maintained 07/12/2022 11:46 EDT WBC 10.3 10^3/mcL RBC 3.71 10^6/mcL LOW Hgb 11.8 G/dL LOW Hct 34.4 % MCV 92.7 fL MCH 31.9 pg MCHC 34.4 G/dL RDW 13.2 % Platelet 266 10^3/mcL MPV 8.7 fL Neutrophil % 73.4 % Lymphocyte % 17.4 % LOW Monocyte % 7.0 % Eosinophil % 1.2 % Basophil % 1.0 % Neutrophil, Absolute 7.5 10^3/mcL Lymphocyte, Absolute 1.8 10^3/mcL Monocyte, Absolute 0.7 10^3/mcL Eosinophil, Absolute 0.1 10^3/mcL Basophil, Absolute 0.1 10^3/mcL ABO/Rh Interp O POS ABSC Interp (Gel) Negative ABSC 07/12/2022 11:45 EDT Lactated Ringers Injection Begin Bag 1,000 mL mL 07/12/2022 11:41 EDT OBHx 1 07/12/2022 11:28 EDT Blood Type, External O positive Rubella, External Immune HIV Antibodies, External Negative Group B Strep, External Negative Group B Strep Date Performed 06/17/2022 Hepatitis B, External Negative Hepatitis B Date Performed 12/03/2021 RPR, External Nonreactive Designated Person #1 We May Share [facility] Boubacar [phone] Designated Person #1 Relationship Spouse Designated Person #2 We May Share MAK Madden [phone] Designated Person #2 Relationship Mother Privacy Restrictions Requested None Height 160.6 cm Admission Weight 89 kg Lyle Body Weight 52.93 kg BSA Admission 1.92 Body Mass Index 34.51 kg/m2 Expected Outcome Live Patient Type Inpatient Thrombosis Risk Factors (1) Obesity (greater than 20% over ideal body weight or BMI, (1) or post- less than 1 month Thrombosis Risk Factor Add'l Assessment NA Thrombosis Risk Score 2 Status Yes Risk Factors, Antepartum Current Preg Relative BMI greater than 30 Movement Present Vaginal bleeding No PPH Risk Low risk for hemorrhage PPH Low Risk Factors [place] , Less than 4 previous deliveries, Unscarred uterus, Absence of hemorrhage history Infant Feeding Breast milk Anesthesia/Pain Medication During Labor None planned, Epidural/Spinal Circumcision Other: unsure sex Baby For Adoption No Surrogate No Tubal Sterilization Planned No Discharge Physician Dr Royce Sun Written Plan Yes - See paper plan on chart WIC Participant No Safe Sleep Environment for Baby Yes Safe Sleep Environment Outside Home Yes Maternal Transport No Thoughts of Harming Others - History No Thoughts of Suicide - History No Coping Effective Hospital Clergy to Visit Patient Verbalizes No Spiritual Needs Financial Concerns Re: Hospital/Disch No Living Situation Lives with spouse Current Home Treatments None Professional Skilled Services None Special Services and Community Resources None Advanced Directives No - refuses information Infectious Disease Symptoms Patient states no symptoms Infectious Disease Recent Exposure No Alcohol and Drug Use No Employee of Institutional Living No Health Care Employee No History of Exposure to TB No History of Positive Chest X-Ray for TB No History of Positive TB Skin Test No Homeless No Known Immunosuppression No Recent Immigrant No Resident of Institutional Living No Bloody Sputum No Fatigue No Fever No Loss of Appetite No Night Sweats No Persistent Cough > 3 Weeks No Weight Loss No Safety Brochure Information Reviewed Yes Darek [place] Video Viewed Yes Teaching Evaluation No further teaching needed Preferred Written Language Indonesian Preferred Spoken Language Indonesian Chief Complaint IOL Mode of Arrival Ambulatory Accompanied by Spouse Information Given by Patient Patient's Current Physicians none Emergency Contact Number Boubacar Gerard [phone] Reason For Visit OB Induction Belongings At Bedside Bra, Cell phone, Management Tech, Credit cards, Earrings, Luggage, Money, Necklace, Pajamas, Pants, Shirt, Slippers, Socks, Undergarments, Wallet, Wedding band, Other: misc baby items Personal Home Medications Received No home medications were brought in Belongings Sent Home None Belongings to Security/Secured in Dept None Discharge To, Anticipated Home independently Other Anticipated Needs After Discharge No Anticoagulants Taken In Past 6 Wks. No Prev Test Positive/Diagnosis w/COVID-19 No Current Quarantine/Isolated any Illness No Any Contact with Sick Animals/Birds No Traveled Anywhere in Last 30 Days No No Able To Drink Order Detail Yes Able To Sign Consents Order Detail Yes Code Status Order Detail Full code IV Order Detail Yes Dialysis Schedule Order Detail N/A Has Diabetes Order Detail No Isolation Precautions Order Detail None Nurse Collect Order Detail 1 Oxygen Order Detail No Order Detail Yes Prior Valve Replacement Order Detail No Transport Mode Order Detail Bed and Nurse Anesthesia/Transfusions Prior anesthesia Admission Note-Nursing Patient History OB . Assessment and Plan [place] [employer] (ASA) physical status classification: Class II. Anesthetic Preoperative Plan Anesthetic technique: Choice. Postoperative pain management: Per surgeon. Digitally Signed by EBONY CHEN on 07/12/2022 01:25 PM [id number]. MICRO - Microbiology PROCEDURE: Urine Culture [*1] SOURCE: Urine, Clean Catch BODY SITE: COLLECTED DATE/TIME: 05/06/2022 15:20 EDT RECEIVED DATE/TIME: 05/06/2022 20:02 EDT START DATE/TIME: 05/06/2022 20:02 EDT FREE TEXT SOURCE: FINAL REPORTS Final Report [] Verified Date/Time/Personnel: 05/08/2022 10:27 EDT 50,000 - 100,000 cfu/ml Enterococcus faecalis PRELIMINARY REPORTS Preliminary Report [] Verified Date/Time/Personnel: 05/07/2022 13:53 EDT 50,000 - 100,000 cfu/ml Enterococcus faecalis MARTINE to follow SUSCEPTIBILITY RESULTS Enterococcus faecalis Antibiotic MARTINE Dilut MARTINE Inter Ampicillin <=2 Susceptible Ciprofloxacin <=1 Susceptible Gentamicin <=500 Susceptible synergy Levofloxacin <=1 Susceptible Nitrofurantoin <=32 Susceptible Vancomycin 1 Susceptible Performing Locations *1: This test was performed at: [facility], [address] [place] [address], [id number] , [facility] ([place])09-28-2021 Hospital Discharge instructions Patient Education 09/28/2021 17:21:45 Diagnostic Laparoscopy, Care After Diagnostic Laparoscopy, Care After This sheet gives you information about how to care for yourself after your procedure. Your health care provider may also give you more specific instructions. If you have problems or questions, contact your health care provider. What can I expect after the procedure? After the procedure, it is common to have: Mild discomfort in the abdomen. Sore throat. Women who have laparoscopy with pelvic examination may have mild cramping and fluid coming from thevagina for a few days after the procedure. Follow these instructions at home: Medicines Take whwl-bre-yqviuhs and prescription medicines only as told by your health care provider. If you were prescribed an antibiotic medicine, take it as told by your health care provider. Do notstop taking the antibiotic even if you start to feel better. Driving Do not drive for 24 hours if you were given a medicine to help you relax (sedative) during your procedure. Do not drive or use heavy machinery while taking prescription pain medicine. Bathing Do not take baths, swim, or use a hot tub until your health care provider approves. You may take showers. Incision care Follow instructions from your health care provider about how to take care of your incisions. Make sure you: ?Wash your hands with soap and water before you change your bandage (dressing). If soap and water are not available, use hand center medical specialist. ?Change your dressing as told by your health care provider. ?Leave stitches (sutures), skin glue, or adhesive strips in place. These skin closures may need to stay in place for 2 weeks or longer. If adhesive strip edges start to loosen and curl up, you may trim the loose edges. Do not remove adhesive strips completely unless your health care provider tells you to do that. Check your incision areas every day for signs of infection. Check for: ?Redness, swelling, or pain. ?Fluid or blood. ?Warmth. ?Pus or a bad smell. Activity Return to your normal activities as told by your health care provider. Ask your health care provider what activities are safe for you. Do not lift anything that is heavier than 10 lb (4.5 kg), or the limit that you are told, until your health care provider says that it is safe. General instructions To prevent or treat constipation while you are taking prescription pain medicine, your health care provider may recommend that you: ?Drink enough fluid to keep your urine pale yellow. ?Take kfws-hak-uflgzoo or prescription medicines. ?Eat foods that are high in fiber, such as fresh fruits and vegetables, whole grains, and beans. ?Limit foods that are high in fat and processed sugars, such as fried and sweet foods. Do not use any products that contain nicotine or tobacco, such as cigarettes and e-cigarettes. If you need help quitting, ask your health care provider. Keep all follow-up visits as told by your health care provider. This is important. Contact a health care provider if: You develop shoulder pain. You feel lightheaded or faint. You are unable to pass gas or have a bowel movement. You feel nauseous or you vomit. You develop a rash. You have redness, swelling, or pain around any incision. You have fluid or blood coming from any incision. Any incision feels warm to the touch. You have pus or a bad smell coming from any incision. You have a fever or chills. Get help right away if: You have severe pain. You have vomiting that does not go away. You have heavy bleeding from the vagina. Any incision opens. You have trouble breathing. You have chest pain. Summary After the procedure, it is common to have mild discomfort in the abdomen and a sore throat. Check your incision areas every day for signs of infection. Return to your normal activities as told by your health care provider. Ask your health care provider what activities are safe for you. This information is not intended to replace advice given to you by your health care provider. Make sure you discuss any questions you have with your health care provider. Document Released: 01/05/2016 Document Revised: 01/06/2018 Document Reviewed: 07/20/2017 [employer] Patient Education 2020 [employer] 09/28/2021 17:21:45 1-SDS Discharge Instructions Template (11/2017) (Custom) [facility] SAME DAY SURGERY DISCHARGE INSTRUCTIONS PLEASE FOLLOW THE INSTRUCTIONS BELOW MARKED WITH AN X: _x__ Regular Diet: Start with clear liquids, then soup and crackers and gradually add other foods. _x__ Drink extra fluids. ___ Special Diet Instructions: ___ ACTIVITY: _x__ Avoid stress to suture line. Since you have had an anesthetic, it would be advisable not to drive, drink alcohol, or make major decisions over the next 24 hours. You may require more rest tonight and tomorrow. ___ May resume regular activity as tolerated. ___ Restrict activity as follows: ___ ___ Walk Only ___ ___ Do not go up and down stairs. ___ Do not ride in car until ___ ___ Do not drive car. ___ Do not have sexual intercourse. ___ No heavy lifting, pushing or straining. ___ Other: ___ BATHING/SHOWERING: ___ Sponge bathe until office visit. ___ Sitting in tub of warm water may relieve discomfort. ___ May tub bathe ___ May shower ___ On day after surgery sit in tub of warm water to soak off dressing. DRESSING: ___ Keep operative area dry and clean for ___ ___ Check the operative area for signs of bleeding. Apply pressure to the bleeding site if necessary and call your physician. ___ Change dressing as necessary using sterile dressing material or bandaid. ___ Reinforce dressing as necessary. ___ Change and care for wound as follows: ___ ___ Wear bra for ___ days following breast surgery for comfort. ___ Change drip pad as needed. ___ Wear scrotal support for comfort. WATCH FOR SIGNS OF INFECTION: (Usually appears 36-48 hours after surgery) Increased temperature (101 degrees Fahrenheit or higher) Redness or swelling Increased pain Foul odor or drainage. If you have any questions, please call your doctor at the number listed on your follow up instructions. Follow all instructions given to you by your physician. Please complete and return the survey you will be receiving in the mail to help us better serve our patients. Form: [id number] ([id number]) R: 05/16 Follow Up Care 09/17/2021 12:53:55 With:FEDERICO LIRIANO DO, Obstetrics & Gynecology, [facility] Address: [address] [address] [phone] When: Unknown Comments:Schedule appointment as soon as possible With:FEDERICO LIRIANO DO, Obstetrics & Gynecology, [facility] Address: [address] [phone] When: Unknown Comments:Schedule appointment as soon as possible With:FEDERICO LIRAINO DO, Obstetrics & Gynecology, [facility] Address: [address] [address] [phone] When: Unknown [facility] 08-22-2022 Summary of episode note Discharge Instructions Thank you for allowing [facility] to assist you with your healthcare needs. The following is importantdischarge information regarding your hospital visit. Your Care Team PHYSICIAN, NONE Your Diagnosis Post-op pain What to do next Follow Up Appointments Follow Up with FEDERICO ILRIANO DO, Obstetrics & Gynecology, [facility] When Why: Schedule appointment as soon as possible Where: [address] [address] [phone] The Following Activity and Diet Have Been Ordered for You Discharge Activity - Ordered -- Sexual [place] Restricted, Follow the post-procedure activity instructions provided by your physician's office.No sexual intercourse x 2 wks, No tub baths x 2 wks. No heavy lifting greater than 15lbs. Don't operate a vehicle while using narco... Discharge Diet - Ordered -- Follow the post-operative/post-procedure diet instructions provided by your physician's office.,09/28/21 17:18:00 EDT The Following Equipment Has Been Ordered for You Discharge Home Equipment Discharge Wound Care - Ordered -- Follow the post-operative/post-procedure wound care instructions provided by your physician's office.Call the office if exp a temp >100.4, increase in pain, increase in bleeding/discharge, or increase in odors, 09/28/21 17:18:00 EDT Allergies No Known Medication Allergies Medications Please ask your primary doctor or pharmacist before taking any other medication not listed, including over the counter drugs, herbal medications, vitamins and or supplements as they may interact withyour home medications. What How Much When Why Instructions Last Dose New acetaminophen-oxyCODONE (Percocet 5 mg-325 mg oral tablet) 1 tab(s) by mouth Every 6 hours as needed for for pain Post-op pain Duration: 3 Days Printed Prescription New docusate (docusate sodium 100 mg oral tablet) 1 tab(s) by mouth Two (2) times a day Printed Prescription New ibuprofen (ibuprofen 600 mg oral tablet) 1 tab(s) by mouth Every 6 hours as needed for as needed for pain Take with food or milk. Printed Prescription Unchanged ascorbic acid (Vitamin C) 1,000 Milligram by mouth Once a day Unchanged herbal/ nutritional product ([place] Oil 1000 mg oral capsule) 2,600 Milligram by mouth Every day Unchanged herbal/ nutritional product (Probiotic) 173 Milligram by mouth Every day Unchanged Misc Medication Unchanged Misc Medication Unchanged multivitamin with minerals (Vitamin D with Minerals oral tablet) 1 tab(s) by mouth Once a day Unchanged multivitamin, ( Multivitamins with Vitamin B Complex, Vitamin C, Minerals and L-Methylfolate oral capsule) 1 cap by mouth Every day Unchanged omega-3 polyunsaturated fatty acids ([place]-3 Fish Oil) 3,200 Milligram by mouth Once a day Please take this list to your next doctor s visit. Bring all medications you take, including over the counter medications, herbals and other supplements with you to your doctor s visit. Patients and families are reminded to discard old lists and to update any records with all medication providers or retail pharmacies. Education Materials Diagnostic Laparoscopy, Care After This sheet gives you information about how to care for yourself after your procedure. Your health care provider may also give you more specific instructions. If you have problems or questions, contact your health care provider. What can I expect after the procedure? After the procedure, it is common to have: Mild discomfort in the abdomen. Sore throat. Women who have laparoscopy with pelvic examination may have mild cramping and fluid coming from thevagina for a few days after the procedure. Follow these instructions at home: Medicines Take swmo-kfa-crnmwkd and prescription medicines only as told by your health care provider. If you were prescribed an antibiotic medicine, take it as told by your health care provider. Do notstop taking the antibiotic even if you start to feel better. Driving Do not drive for 24 hours if you were given a medicine to help you relax (sedative) during your procedure. Do not drive or use heavy machinery while taking prescription pain medicine. Bathing Do not take baths, swim, or use a hot tub until your health care provider approves. You may take showers. Incision care Follow instructions from your health care provider about how to take care of your incisions. Make sure you: ? Wash your hands with soap and water before you change your bandage (dressing). If soap and water are not available, use hand center medical specialist. ? Change your dressing as told by your health care provider. ? Leave stitches (sutures), skin glue, or adhesive strips in place. These skin closures may need to stay in place for 2 weeks or longer. If adhesive strip edges start to loosen and curl up, you may trim the loose edges. Do not remove adhesive strips completely unless your health care provider tells you to do that. Check your incision areas every day for signs of infection. Check for: ? Redness, swelling, or pain. ? Fluid or blood. ? Warmth. ? Pus or a bad smell. Activity Return to your normal activities as told by your health care provider. Ask your health care provider what activities are safe for you. Do not lift anything that is heavier than 10 lb (4.5 kg), or the limit that you are told, until your health care provider says that it is safe. General instructions To prevent or treat constipation while you are taking prescription pain medicine, your health care provider may recommend that you: ? Drink enough fluid to keep your urine pale yellow. ? Take xvec-ejf-lcswomx or prescription medicines. ? Eat foods that are high in fiber, such as fresh fruits and vegetables, whole grains, and beans. ? Limit foods that are high in fat and processed sugars, such as fried and sweet foods. Do not use any products that contain nicotine or tobacco, such as cigarettes and e-cigarettes. If you need help quitting, ask your health care provider. Keep all follow-up visits as told by your health care provider. This is important. Contact a health care provider if: You develop shoulder pain. You feel lightheaded or faint. You are unable to pass gas or have a bowel movement. You feel nauseous or you vomit. You develop a rash. You have redness, swelling, or pain around any incision. You have fluid or blood coming from any incision. Any incision feels warm to the touch. You have pus or a bad smell coming from any incision. You have a fever or chills. Get help right away if: You have severe pain. You have vomiting that does not go away. You have heavy bleeding from the vagina. Any incision opens. You have trouble breathing. You have chest pain. Summary After the procedure, it is common to have mild discomfort in the abdomen and a sore throat. Check your incision areas every day for signs of infection. Return to your normal activities as told by your health care provider. Ask your health care provider what activities are safe for you. This information is not intended to replace advice given to you by your health care provider. Make sure you discuss any questions you have with your health care provider. Document Released: 01/05/2016 Document Revised: 01/06/2018 Document Reviewed: 07/20/2017 [employer] Patient Education 2020 [employer] [facility] SAME DAY SURGERY DISCHARGE INSTRUCTIONS PLEASE FOLLOW THE INSTRUCTIONS BELOW MARKED WITH AN X: _x__ Regular Diet: Start with clear liquids, then soup and crackers and gradually add other foods. _x__ Drink extra fluids. ___ Special Diet Instructions: ___ ACTIVITY: _x__ Avoid stress to suture line. Since you have had an anesthetic, it would be advisable not to drive, drink alcohol, or make major decisions over the next 24 hours. You may require more rest tonight and tomorrow. ___ May resume regular activity as tolerated. ___ Restrict activity as follows: ___ ___ Walk Only ___ ___ Do not go up and down stairs. ___ Do not ride in car until ___ ___ Do not drive car. ___ Do not have sexual intercourse. ___ No heavy lifting, pushing or straining. ___ Other: ___ BATHING/SHOWERING: ___ Sponge bathe until office visit. ___ Sitting in tub of warm water may relieve discomfort. ___ May tub bathe ___ May shower ___ On day after surgery sit in tub of warm water to soak off dressing. DRESSING: ___ Keep operative area dry and clean for ___ ___ Check the operative area for signs of bleeding. Apply pressure to the bleeding site if necessary and call your physician. ___ Change dressing as necessary using sterile dressing material or bandaid. ___ Reinforce dressing as necessary. ___ Change and care for wound as follows: ___ ___ Wear bra for ___ days following breast surgery for comfort. ___ Change drip pad as needed. ___ Wear scrotal support for comfort. WATCH FOR SIGNS OF INFECTION: (Usually appears 36-48 hours after surgery) Increased temperature (101 degrees Fahrenheit or higher) Redness or swelling Increased pain Foul odor or drainage. If you have any questions, please call your doctor at the number listed on your follow up instructions. Follow all instructions given to you by your physician. Please complete and return the survey you will be receiving in the mail to help us better serve our patients. Form: 1522 ([id number]) R: 05/16 Additional Information VACCINATE! IT SAVES LIVES! Members of the community who have not yet received the COVID-19 vaccine and would like to receive it can visit one of [facility] vaccine clinics. There are many vaccine clinic locations within the [facility]. For locations and available times, please visit [email or web address] It is important to note that some COVID mobile vaccine clinics are held outdoors and may be canceled in rainy or stormy conditions. To learn more about pediatric vaccinations (ages 5-11), we invite you to visit the [facility] webpage. [email or web address] learn more about the COVID-19 vaccine, we invite you to visit the [facility] website for a list of frequently asked questions. [email or web address] _[email or web address] [facility] Patient Portal Access Instructions: Stay connected with your healthcare team and access your personal medical information anytime with the [facility] Patient Portal.If you would like a full copy of your medical records, please contact the [facility] Medical Records Department, Tuesday through Tuesday between 8a.m. and 4:30p.m. Please follow the directions below to access the portal: 1.Access the email account you provided upon registration to the [facility].2.Look for an invitation email from [facility].3.Open the email and access the invitation link: Accept Invitation to MyDoc4.Fill in the required haney to create your account. Sign into www.Pingup with your username and password that you created in the above steps to stay up to date. You can then view a summary of results, a summary of your visits, and the ability to download your summaries to your computer or send the information securely to a physician. Remember that your healthcare information is confidential, so carefully consider who you will allow to register on the [facility] Patient Portal for access to your information. You can also access the [facility] Patient Portal on the [facility] [employer]. Simply click on Health Records under [employer] and then click on the [employer] logo. HOW TO SAFELY DISPOSE OF PRESCRIPTION MEDICATIONS Please use one of the following methods to safely dispose of your unused medications. 1.Use a drug disposal kit: the drug disposal pouch allows you to safely discard your old and unuseddrugs. Ask your nurse to give you one when you are discharged.2.Visit a local take-back location: Many local pharmacies and police departments have programs that collect old and unwanted prescriptiondrugs. Call your local pharmacy or go to http://SportsHedge.Mobi/5P0Kp6o to find one close to you.3.Make use of household items: Use cat litter or old coffee grounds to dispose medications if other options arenot available. Mix your drugs with these household products, seal them in an airtight container andthrow it into the garbage. Call [facility]: [phone] to be sure your drugs can be disposed of in this way. Some medicines may require a different approach.4.Never flush your medications down the toilet. IF YOU HAVE BEEN PRESCRIBED AN OPIOID FOR PAIN If you have been prescribed an opioid (such as hydrocodone, oxycodone or morphine), it is critical to understand the possible side effects and risks of opioid pain medications. Even when taken as directed, opioids can have several side effects including: Tolerance, meaning you might need to take more of a medication for the same pain relief. Nausea, vomiting and/or constipation. Sleepiness, dizziness, dry mouth, confusion, depression or itching. Physical dependence, meaning you have withdrawal symptoms when a medication is stopped, can develop within a few days. KNOW YOUR RESPONSIBILITIES It is important to know exactly how much and how often to take the opioid pain medications you are prescribed. Never take opioids in higher amounts or more often than prescribed. Do not combine opioids with alcohol or other drugs that cause drowsiness, such as benzodiazepines, also known as benzos, including diazepam and alprazolam, muscle relaxants or sleep aids. Never sell or share prescription opioids. This is illegal. Store opioids in a secure place and out of reach of others (including children, family, friends and visitors). The last page of this document has been signed and retained as a CHART COPY. Signatures Patient Education Materials Diagnostic Laparoscopy, Care After 1-SDS Discharge Instructions Template (11/2017) (Custom) Medication Leaflets My discharge plan and instructions have been reviewed and explained to me and I,JERMAIN GERARD understand my current condition and have read and understand these discharge instructions. I have received a written copy of the plan/instructions. If I have questions, I am aware that I should contact my doctor. Patient/Compounding Assistant Signature: Date/Time: Relationship to Patient: Witness Name/Signature: Date/Time: [id number] Anesthesiology Consult note Patient: JERMAIN GERARD Age: 21 years Sex: Female : 2000 Associated Diagnoses: None Author: ARACELY MARTINES MD Postoperative Information Patient has been doing well in the PACU. They have been hemodynamically stable, oxygenating well, the pain and nausea are under control. Her hydration status appears to be adequate and at baseline. Given the patient's stability, I feel they are appropriately recovered from anesthesia and in a stable condition to be discharged from PACU. Assessment Postanesthesia assessment Vitals: Vital signs from flowsheet : Vital Signs 09/28/2021 16:20 EDT Heart Rate Monitored 78 bpm Respiratory Rate 16 br/min Systolic Blood Pressure NBP 123 mmHg Diastolic Blood Pressure NBP 84 mmHg Mean Arterial Pressure (NBP) 93 mmHg 09/28/2021 16:06 EDT Temperature Temporal Artery 36.4 DegC Heart Rate Monitored 83 bpm Respiratory Rate 16 br/min Systolic Blood Pressure 123 mmHg Diastolic Blood Pressure 84 mmHg Mean Arterial Pressure 97 mmHg 09/28/2021 16:05 EDT Respiratory Rate 0 br/min br/min 09/28/2021 16:02 EDT Systolic Blood Pressure NBP 120 mmHg mmHg Diastolic Blood Pressure NBP 90 mmHg mmHg 09/28/2021 16:00 EDT Heart Rate Monitored 90 bpm bpm Respiratory Rate 10 br/min br/min 09/28/2021 15:58 EDT Systolic Blood Pressure NBP 94 mmHg mmHg Diastolic Blood Pressure NBP 75 mmHg mmHg 09/28/2021 15:55 EDT Heart Rate Monitored 65 bpm bpm Respiratory Rate 8 br/min br/min 09/28/2021 15:54 EDT Systolic Blood Pressure NBP 118 mmHg mmHg Diastolic Blood Pressure NBP 86 mmHg mmHg 09/28/2021 15:51 EDT Systolic Blood Pressure NBP 122 mmHg mmHg Diastolic Blood Pressure NBP 88 mmHg mmHg 09/28/2021 15:50 EDT Temperature (Route Not Specified) 36.32 DegC DegC Heart Rate Monitored 75 bpm bpm Respiratory Rate 13 br/min br/min 09/28/2021 15:48 EDT Systolic Blood Pressure NBP 120 mmHg mmHg Diastolic Blood Pressure NBP 85 mmHg mmHg 09/28/2021 15:45 EDT Temperature (Route Not Specified) 36.3 DegC DegC Heart Rate Monitored 68 bpm bpm Respiratory Rate 13 br/min br/min Systolic Blood Pressure NBP 123 mmHg mmHg Diastolic Blood Pressure NBP 83 mmHg mmHg 09/28/2021 15:42 EDT Systolic Blood Pressure NBP 127 mmHg mmHg Diastolic Blood Pressure NBP 91 mmHg mmHg 09/28/2021 15:40 EDT Temperature (Route Not Specified) 36.21 DegC DegC Heart Rate Monitored 81 bpm bpm Respiratory Rate 12 br/min br/min 09/28/2021 15:39 EDT Systolic Blood Pressure NBP 124 mmHg mmHg Diastolic Blood Pressure NBP 88 mmHg mmHg 09/28/2021 15:36 EDT Systolic Blood Pressure NBP 125 mmHg mmHg Diastolic Blood Pressure NBP 89 mmHg mmHg 09/28/2021 15:35 EDT Temperature (Route Not Specified) 36.19 DegC DegC Heart Rate Monitored 110 bpm bpm Respiratory Rate 14 br/min br/min 09/28/2021 15:33 EDT Systolic Blood Pressure NBP 118 mmHg mmHg Diastolic Blood Pressure NBP 83 mmHg mmHg 09/28/2021 15:32 EDT Systolic Blood Pressure NBP 118 mmHg mmHg Diastolic Blood Pressure NBP 85 mmHg mmHg 09/28/2021 15:30 EDT Temperature (Route Not Specified) 36.33 DegC DegC Heart Rate Monitored 88 bpm bpm Respiratory Rate 12 br/min br/min Systolic Blood Pressure NBP 103 mmHg mmHg Diastolic Blood Pressure NBP 62 mmHg mmHg 09/28/2021 15:27 EDT Systolic Blood Pressure NBP 92 mmHg mmHg Diastolic Blood Pressure NBP 69 mmHg mmHg 09/28/2021 15:25 EDT Temperature (Route Not Specified) 36.41 DegC DegC Heart Rate Monitored 96 bpm bpm Respiratory Rate 14 br/min br/min 09/28/2021 15:24 EDT Systolic Blood Pressure NBP 105 mmHg mmHg Diastolic Blood Pressure NBP 68 mmHg mmHg 09/28/2021 15:21 EDT Systolic Blood Pressure NBP 125 mmHg mmHg Diastolic Blood Pressure NBP 88 mmHg mmHg 09/28/2021 15:20 EDT Heart Rate Monitored 82 bpm bpm Respiratory Rate 14 br/min br/min 09/28/2021 15:18 EDT Systolic Blood Pressure NBP 112 mmHg mmHg Diastolic Blood Pressure NBP 87 mmHg mmHg 09/28/2021 15:15 EDT Heart Rate Monitored 85 bpm bpm Respiratory Rate 0 br/min br/min Systolic Blood Pressure NBP 121 mmHg mmHg Diastolic Blood Pressure NBP 78 mmHg mmHg 09/28/2021 15:12 EDT Systolic Blood Pressure NBP 119 mmHg mmHg Diastolic Blood Pressure NBP 86 mmHg mmHg 09/28/2021 14:13 EDT Temperature Temporal Artery 36.6 DegC Apical Heart Rate 93 bpm Respiratory Rate 16 br/min Systolic Blood Pressure 128 mmHg Diastolic Blood Pressure 81 mmHg Mean Arterial Pressure 97 mmHg . Digitally Signed by ARACELY MARTINES MD on 09/28/2021 04:23 PM [id number] Note Brief Operative Note: Date of Surgery: 09/28/2021 Pre-Op Diagnosis: Pelvic pain, infertility, obstruction of right fallopian tube on hysterosalpingogram Post-Op Diagnosis: Patent right fallopian tube, otherwise same as above Procedure: Diagnostic laparoscopy, chromotubation, hysteroscopy Surgeon: Dr. Liriano Compound Finisher: Dr. Martinez PGY3, Dr. Basilio PGY1 Anesthesia: General EBL: 2mL IVF: 1500mL UOP: 300mL Complications: None Full operative dictation to follow. Digitally Signed by ANGELES MARTINEZ DO on 09/28/2021 04:11 PM [id number] Anesthesiology Consult note Patient: JERMAIN GERARD Age: 21 years Sex: Female : 2000 Associated Diagnoses: None Author: YEIMY PRICE DO Preoperative Information Time of last food or liquid consumption: 09/27/2021 22:00:00 Anesthesia history Patient's history: negative. Family's history: negative. Review of Systems Respiratory: childhood asthma - no recent problems. Cardiovascular: Negative. Gastrointestinal: Negative. Endocrine: Negative. Neurologic: Negative. Health Status Allergies: Allergic Reactions (Selected) No Known Medication Allergies, Allergies (1) ActiveReaction No Known Medication AllergiesNone Documented Current medications: (Selected) Inpatient Medications Ordered CeFAZolin 2 gm IV Syringe: Start: 09/28/21 6:00:00 EDT, Dose= 2 gram(s), = 20 mL, IV Push (INT), PREOP pharm, Stop date 09/29/21 0:00:00 EDT, Rate: 240 mL/hr, Infuse over: 5 minute(s), 20 mL Lactated Ringers Infusion 1,000 mL: Start: 09/28/21 5:00:00 EDT, 189 hour(s), Stop date 10/06/21 1:59:00 EDT, Rate: 20 mL/hr, 09/28/21 5:00:00 EDT Documented Medications Documented Evening [place] Oil 1000 mg oral capsule: Dose : 2,600 mg =, Oral, Daily, 0 Refill(s) Misc Medication: 0 Refill(s) Misc Medication: 0 Refill(s) [place]-3 Fish Oil: Dose : 3,200 mg =, Oral, qDay, 0 Refill(s) Multivitamins with Vitamin B Complex, Vitamin C, Minerals and L- Methylfolate oral capsule...: Dose = 1 cap(s), Oral, Daily, 0 Refill(s) Probiotic: 173 mg, Oral, Daily, 0 Refill(s) Vitamin C: Dose : 1,000 mg =, Oral, qDay, 0 Refill(s) Vitamin D with Minerals oral tablet: Dose = 1 tab(s), Oral, qDay, # 30 tab(s), 0 Refill(s), Medications (2) Active Scheduled: (1) ceFAZolin syringe 2 gram(s) 20 mL, IV Push (INT), PREOP pharm Continuous: (1) Lactated Ringers 1,000 mL 1,000 mL, Intravenous, 20 mL/hr PRN: (0) Problem list: Active Problems (1) No Chronic Problems Histories Past Medical History: No active or resolved past medical history items have been selected or recorded. Procedure history: [place] tooth ([id number]) on 07/29/2021 at 21 Years. Social History Social & Psychosocial Habits No Data Available . Physical Examination Vital Signs(last 24 hrs) Last Charted Resp Rate 16 br/min (SEP 28 14:13) Measurements from flowsheet : Measurements 09/28/2021 14:13 EDT Height 160 cm Height in inches 63 inch(es) Admission Weight 72.4 kg Weight Lbs 159.3 lb Weight Method Actual [place] Body Weight 52.38 kg Type of Scale Used Weigh bed Admission Body Mass Index 28.28 m2 General: Alert and oriented. Airway: Normal temporomandibular joint mobility, Normal mouth, Normal neck range of motion. Dentition Evaluation: Own teeth. Respiratory: Lungs are clear to auscultation. Cardiovascular: Normal rate. Heart Sounds: Normal. Neurologic: Alert, Oriented. Assessment and Plan [employer] [employer] (ASA) physical status classification: Class II. Anesthetic Preoperative Plan Anesthetic technique: General. Induction: intravenously. Maintenance airway: Oral endotracheal tube. Postoperative pain management: Per surgeon. Risks discussed: nausea, vomiting, headache, sore throat, dental injury, hypotension, allergic reaction, serious complications. Informed consent: signed by patient. Notes: Patient has a h/o childhood asthma with no recent problems. Discussed general anesthesia andpatient agrees to proceed.. Digitally Signed by YEIMY PRICE DO on 09/28/2021 02:57 PM [id number] Note ORIGINAL EXAMINATION: FLUOROSCOPIC HYSTEROSALPINGOGRAM 08/12/2021 10:25 am TECHNIQUE: Informed consent was obtained and universal protocol was observed. Fluoroscopic hysterosalpingogram was performed after cannulization of the cervix and administration of contrast into the uterine cavity. FLUOROSCOPY DOSE AND TYPE OR TIME AND EXPOSURES: Fluoro time: 1.5 minutes Total dose: 72.40 mGy 5 digital images. Contrast: 15 cc COMPARISON: none HISTORY: ORDERING SYSTEM PROVIDED HISTORY: Reason for Exam: infertility FINDINGS: There is normal opacification of the left fallopian tube with free spill of contrast into the peritoneal cavity. The right fallopian tube appears occluded. There is normal filling of the endometrial cavity without evidence of endometrial filling defect. Small amount contrast is noted entering the vaginal cavity. IMPRESSION: Occluded right fallopian tube. Patent left fallopian tube. I have personally reviewed the images of this examination and agree with the resident's findings and interpretations. Interpreted by: Kadeem Stone MD Preliminary Report By: Manohar Saucedo Electronically signed By Kadeem Stone MD Dictated Date: 08/12/2021 11:01:13 AM Prelim Date: 08/12/2021 2:36:19 PM Sign Date: 08/12/2021 2:36:19 PM Ordering Provider: MIRIAM LOPEZ [id number] Note ORIGINAL EXAMINATION: FLUOROSCOPIC HYSTEROSALPINGOGRAM 08/12/2021 10:25 am TECHNIQUE: Informed consent was obtained and universal protocol was observed. Fluoroscopic hysterosalpingogram was performed after cannulization of the cervix and administration of contrast into the uterine cavity. FLUOROSCOPY DOSE AND TYPE OR TIME AND EXPOSURES: Fluoro time: 1.5 minutes Total dose: 72.40 mGy 5 digital images. Contrast: 15 cc COMPARISON: none HISTORY: ORDERING SYSTEM PROVIDED HISTORY: Reason for Exam: infertility FINDINGS: There is normal opacification of the left fallopian tube with free spill of contrast into the peritoneal cavity. The right fallopian tube appears occluded. There is normal filling of the endometrial cavity without evidence of endometrial filling defect. Small amount contrast is noted entering the vaginal cavity. IMPRESSION: Occluded right fallopian tube. Patent left fallopian tube. I have personally reviewed the images of this examination and agree with the resident's findings and interpretations. Interpreted by: Kadeem Stone MD Preliminary Report By: Manohar Saucedo Electronically signed By Kadeem Stone MD Dictated Date: 08/12/2021 11:01:13 AM Prelim Date: 08/12/2021 2:36:19 PM Sign Date: 08/12/2021 2:36:19 PM [facility] KHADIJAH NEVAREZ MD: PERFORM, SIGN, VERIFY Event Display: Anesthesiology Consultation Authored Date: [id number] Patient: JERMAIN GERARD Age: 22 years Sex: Female : 2000 Associated Diagnoses: None Author: KHADIJAH NEVAREZ MD Postoperative Information LATE ENTRY: Patient assessed postoperatively and vitals reviewed. Stable at the time of PACU discharge. Assessment Postanesthesia assessment Vitals: Vital signs from flowsheet : Vital Signs 07/14/2022 19:30 EDT Temperature Oral 37.0 DegC Heart Rate Monitored 107 bpm HI Respiratory Rate 18 br/min Systolic Blood Pressure Non-Invasive 112 mmHg Diastolic Blood Pressure Non-Invasive 54 mmHg LOW Reason For Taking VItal Signs Routine 07/14/2022 15:16 EDT Temperature Oral 36.8 DegC Heart Rate Monitored 96 bpm Respiratory Rate 18 br/min Systolic Blood Pressure Non-Invasive 98 mmHg Diastolic Blood Pressure Non-Invasive 59 mmHg LOW Reason For Taking VItal Signs Routine 07/14/2022 13:58 EDT Respiratory Rate 20 br/min 07/14/2022 13:00 EDT Temperature Oral 36.6 DegC Heart Rate Monitored 98 bpm Respiratory Rate 18 br/min Systolic Blood Pressure Non-Invasive 104 mmHg Diastolic Blood Pressure Non-Invasive 68 mmHg 07/14/2022 11:55 EDT Respiratory Rate 18 br/min 07/14/2022 11:15 EDT Respiratory Rate 16 br/min 07/14/2022 10:00 EDT Respiratory Rate 18 br/min 07/14/2022 9:15 EDT Respiratory Rate 16 br/min 07/14/2022 7:54 EDT Temperature Oral 36.5 DegC Heart Rate Monitored 100 bpm Respiratory Rate 16 br/min Systolic Blood Pressure Non-Invasive 102 mmHg Diastolic Blood Pressure Non-Invasive 52 mmHg LOW Reason For Taking VItal Signs Routine 07/14/2022 5:25 EDT Temperature Oral 36.9 DegC Heart Rate Monitored 95 bpm Respiratory Rate 18 br/min Systolic Blood Pressure Non-Invasive 118 mmHg Diastolic Blood Pressure Non-Invasive 70 mmHg 07/14/2022 4:45 EDT Heart Rate Monitored 103 bpm HI Respiratory Rate 26 br/min HI Systolic Blood Pressure Non-Invasive 105 mmHg Diastolic Blood Pressure Non-Invasive 66 mmHg 07/14/2022 4:30 EDT Heart Rate Monitored 103 bpm HI Respiratory Rate 22 br/min HI Systolic Blood Pressure Non-Invasive 99 mmHg Diastolic Blood Pressure Non-Invasive 65 mmHg 07/14/2022 4:15 EDT Heart Rate Monitored 92 bpm Respiratory Rate 19 br/min Systolic Blood Pressure Non-Invasive 105 mmHg Diastolic Blood Pressure Non-Invasive 66 mmHg 07/14/2022 4:00 EDT Heart Rate Monitored 102 bpm HI Respiratory Rate 21 br/min HI Systolic Blood Pressure Non-Invasive 96 mmHg Diastolic Blood Pressure Non-Invasive 59 mmHg LOW 07/14/2022 3:45 EDT Temperature Oral 36.4 DegC Temperature (Route Not Specified) 36 DegC DegC Heart Rate Monitored 92 bpm Respiratory Rate 21 br/min HI Systolic Blood Pressure Non-Invasive 101 mmHg Diastolic Blood Pressure Non-Invasive 55 mmHg LOW 07/14/2022 3:40 EDT Respiratory Rate - Anes 0 br/min br/min 07/14/2022 3:37 EDT Systolic Blood Pressure Non-Invasive 105 mmHg mmHg Diastolic Blood Pressure Non-Invasive 60 mmHg mmHg 07/14/2022 3:35 EDT Heart Rate Monitored 94 bpm bpm Respiratory Rate - Anes 25 br/min br/min 07/14/2022 3:34 EDT Systolic Blood Pressure Non-Invasive 105 mmHg mmHg Diastolic Blood Pressure Non-Invasive 53 mmHg mmHg 07/14/2022 3:31 EDT Systolic Blood Pressure Non-Invasive 104 mmHg mmHg Diastolic Blood Pressure Non-Invasive 56 mmHg mmHg 07/14/2022 3:30 EDT Temperature (Route Not Specified) 36 DegC DegC Heart Rate Monitored 97 bpm bpm Respiratory Rate - Anes 4 br/min br/min 07/14/2022 3:28 EDT Systolic Blood Pressure Non-Invasive 102 mmHg mmHg Diastolic Blood Pressure Non-Invasive 56 mmHg mmHg 07/14/2022 3:25 EDT Heart Rate Monitored 105 bpm bpm Respiratory Rate - Anes 22 br/min br/min Systolic Blood Pressure Non-Invasive 104 mmHg mmHg Diastolic Blood Pressure Non-Invasive 58 mmHg mmHg 07/14/2022 3:22 EDT Systolic Blood Pressure Non-Invasive 103 mmHg mmHg Diastolic Blood Pressure Non-Invasive 53 mmHg mmHg 07/14/2022 3:20 EDT Heart Rate Monitored 99 bpm bpm Respiratory Rate - Anes 27 br/min br/min 07/14/2022 3:19 EDT Systolic Blood Pressure Non-Invasive 101 mmHg mmHg Diastolic Blood Pressure Non-Invasive 45 mmHg mmHg 07/14/2022 3:16 EDT Systolic Blood Pressure Non-Invasive 100 mmHg mmHg Diastolic Blood Pressure Non-Invasive 48 mmHg mmHg 07/14/2022 3:15 EDT Temperature (Route Not Specified) 36 DegC DegC Heart Rate Monitored 105 bpm bpm Respiratory Rate - Anes 24 br/min br/min 07/14/2022 3:13 EDT Systolic Blood Pressure Non-Invasive 101 mmHg mmHg Diastolic Blood Pressure Non-Invasive 48 mmHg mmHg 07/14/2022 3:10 EDT Heart Rate Monitored 103 bpm bpm Respiratory Rate - Anes 26 br/min br/min Systolic Blood Pressure Non-Invasive 101 mmHg mmHg Diastolic Blood Pressure Non-Invasive 47 mmHg mmHg 07/14/2022 3:07 EDT Systolic Blood Pressure Non-Invasive 99 mmHg mmHg Diastolic Blood Pressure Non-Invasive 48 mmHg mmHg 07/14/2022 3:05 EDT Heart Rate Monitored 98 bpm bpm Respiratory Rate - Anes 29 br/min br/min 07/14/2022 3:04 EDT Systolic Blood Pressure Non-Invasive 95 mmHg mmHg Diastolic Blood Pressure Non-Invasive 45 mmHg mmHg 07/14/2022 3:01 EDT Systolic Blood Pressure Non-Invasive 101 mmHg mmHg Diastolic Blood Pressure Non-Invasive 45 mmHg mmHg 07/14/2022 3:00 EDT Temperature (Route Not Specified) 36 DegC DegC Heart Rate Monitored 112 bpm bpm Respiratory Rate - Anes 48 br/min br/min 07/14/2022 2:58 EDT Systolic Blood Pressure Non-Invasive 85 mmHg mmHg Diastolic Blood Pressure Non-Invasive 45 mmHg mmHg 07/14/2022 2:55 EDT Heart Rate Monitored 106 bpm bpm Respiratory Rate - Anes 31 br/min br/min Systolic Blood Pressure Non-Invasive 97 mmHg mmHg Diastolic Blood Pressure Non-Invasive 45 mmHg mmHg 07/14/2022 2:52 EDT Systolic Blood Pressure Non-Invasive 96 mmHg mmHg Diastolic Blood Pressure Non-Invasive 56 mmHg mmHg 07/14/2022 2:50 EDT Heart Rate Monitored 105 bpm bpm Respiratory Rate - Anes 31 br/min br/min 07/14/2022 2:49 EDT Systolic Blood Pressure Non-Invasive 99 mmHg mmHg Diastolic Blood Pressure Non-Invasive 46 mmHg mmHg 07/14/2022 2:46 EDT Systolic Blood Pressure Non-Invasive 103 mmHg mmHg Diastolic Blood Pressure Non-Invasive 49 mmHg mmHg 07/14/2022 2:45 EDT Temperature (Route Not Specified) 36 DegC DegC Heart Rate Monitored 106 bpm bpm Respiratory Rate - Anes 34 br/min br/min 07/14/2022 2:43 EDT Systolic Blood Pressure Non-Invasive 106 mmHg mmHg Diastolic Blood Pressure Non-Invasive 46 mmHg mmHg 07/14/2022 2:40 EDT Heart Rate Monitored 103 bpm bpm Respiratory Rate - Anes 38 br/min br/min Systolic Blood Pressure Non-Invasive 101 mmHg mmHg Diastolic Blood Pressure Non-Invasive 52 mmHg mmHg 07/14/2022 2:37 EDT Systolic Blood Pressure Non-Invasive 109 mmHg mmHg Diastolic Blood Pressure Non-Invasive 57 mmHg mmHg 07/14/2022 2:35 EDT Heart Rate Monitored 113 bpm bpm Respiratory Rate - Anes 0 br/min br/min 07/14/2022 2:31 EDT Temperature (Route Not Specified) 36 DegC DegC 07/14/2022 2:22 EDT Heart Rate Monitored 114 bpm HI Systolic Blood Pressure Non-Invasive 131 mmHg Diastolic Blood Pressure Non-Invasive 63 mmHg 07/14/2022 2:15 EDT Heart Rate Monitored 114 bpm HI Systolic Blood Pressure Non-Invasive 131 mmHg Diastolic Blood Pressure Non-Invasive 63 mmHg 07/14/2022 2:00 EDT Heart Rate Monitored 110 bpm HI Systolic Blood Pressure Non-Invasive 146 mmHg HI Diastolic Blood Pressure Non-Invasive 76 mmHg 07/14/2022 1:45 EDT Heart Rate Monitored 121 bpm HI Systolic Blood Pressure Non-Invasive 134 mmHg Diastolic Blood Pressure Non-Invasive 79 mmHg 07/14/2022 1:15 EDT Heart Rate Monitored 118 bpm HI Systolic Blood Pressure Non-Invasive 98 mmHg Diastolic Blood Pressure Non-Invasive 50 mmHg <LLOW 07/14/2022 1:00 EDT Temperature Oral 36.7 DegC Systolic Blood Pressure Non-Invasive 147 mmHg HI Diastolic Blood Pressure Non-Invasive 125 mmHg >HHI 07/14/2022 0:45 EDT Heart Rate Monitored 98 bpm Systolic Blood Pressure Non-Invasive 139 mmHg Diastolic Blood Pressure Non-Invasive 68 mmHg 07/14/2022 0:30 EDT Heart Rate Monitored 93 bpm Systolic Blood Pressure Non-Invasive 139 mmHg Diastolic Blood Pressure Non-Invasive 79 mmHg 07/14/2022 0:15 EDT Heart Rate Monitored 89 bpm Systolic Blood Pressure Non-Invasive 131 mmHg Diastolic Blood Pressure Non-Invasive 76 mmHg 07/14/2022 0:00 EDT Heart Rate Monitored 92 bpm Systolic Blood Pressure Non-Invasive 146 mmHg HI Diastolic Blood Pressure Non-Invasive 79 mmHg 07/13/2022 23:45 EDT Heart Rate Monitored 98 bpm Systolic Blood Pressure Non-Invasive 136 mmHg Diastolic Blood Pressure Non-Invasive 92 mmHg HI 07/13/2022 23:30 EDT Heart Rate Monitored 79 bpm Systolic Blood Pressure Non-Invasive 133 mmHg Diastolic Blood Pressure Non-Invasive 81 mmHg 07/13/2022 23:15 EDT Systolic Blood Pressure Non-Invasive 133 mmHg Diastolic Blood Pressure Non-Invasive 80 mmHg 07/13/2022 23:00 EDT Temperature Oral 36.7 DegC Heart Rate Monitored 81 bpm Systolic Blood Pressure Non-Invasive 116 mmHg Diastolic Blood Pressure Non-Invasive 79 mmHg 07/13/2022 22:45 EDT Heart Rate Monitored 98 bpm Systolic Blood Pressure Non-Invasive 128 mmHg Diastolic Blood Pressure Non-Invasive 76 mmHg 07/13/2022 22:30 EDT Heart Rate Monitored 87 bpm Systolic Blood Pressure Non-Invasive 139 mmHg Diastolic Blood Pressure Non-Invasive 84 mmHg 07/13/2022 22:15 EDT Heart Rate Monitored 80 bpm Systolic Blood Pressure Non-Invasive 127 mmHg Diastolic Blood Pressure Non-Invasive 87 mmHg 07/13/2022 22:00 EDT Heart Rate Monitored 86 bpm Systolic Blood Pressure Non-Invasive 118 mmHg Diastolic Blood Pressure Non-Invasive 100 mmHg >HHI 07/13/2022 21:45 EDT Heart Rate Monitored 103 bpm HI Systolic Blood Pressure Non-Invasive 114 mmHg Diastolic Blood Pressure Non-Invasive 92 mmHg HI 07/13/2022 21:30 EDT Heart Rate Monitored 188 bpm HI Systolic Blood Pressure Non-Invasive 109 mmHg Diastolic Blood Pressure Non-Invasive 54 mmHg LOW 07/13/2022 21:15 EDT Heart Rate Monitored 79 bpm Systolic Blood Pressure Non-Invasive 113 mmHg Diastolic Blood Pressure Non-Invasive 70 mmHg 07/13/2022 21:00 EDT Temperature Oral 37.1 DegC Heart Rate Monitored 78 bpm Systolic Blood Pressure Non-Invasive 111 mmHg Diastolic Blood Pressure Non-Invasive 66 mmHg 07/13/2022 20:45 EDT Heart Rate Monitored 100 bpm Systolic Blood Pressure Non-Invasive 111 mmHg Diastolic Blood Pressure Non-Invasive 63 mmHg 07/13/2022 20:30 EDT Heart Rate Monitored 82 bpm Systolic Blood Pressure Non-Invasive 117 mmHg Diastolic Blood Pressure Non-Invasive 74 mmHg 07/13/2022 20:15 EDT Heart Rate Monitored 79 bpm Systolic Blood Pressure Non-Invasive 113 mmHg Diastolic Blood Pressure Non-Invasive 64 mmHg 07/13/2022 20:00 EDT Heart Rate Monitored 86 bpm Systolic Blood Pressure Non-Invasive 106 mmHg Diastolic Blood Pressure Non-Invasive 77 mmHg 07/13/2022 19:45 EDT Heart Rate Monitored 113 bpm HI Systolic Blood Pressure Non-Invasive 108 mmHg Diastolic Blood Pressure Non-Invasive 62 mmHg 07/13/2022 19:30 EDT Heart Rate Monitored 79 bpm Systolic Blood Pressure Non-Invasive 103 mmHg Diastolic Blood Pressure Non-Invasive 60 mmHg 07/13/2022 19:15 EDT Heart Rate Monitored 73 bpm Systolic Blood Pressure Non-Invasive 112 mmHg Diastolic Blood Pressure Non-Invasive 74 mmHg 07/13/2022 19:00 EDT Temperature Oral 36.8 DegC Heart Rate Monitored 72 bpm Systolic Blood Pressure Non-Invasive 110 mmHg Diastolic Blood Pressure Non-Invasive 72 mmHg 07/13/2022 18:45 EDT Heart Rate Monitored 69 bpm Systolic Blood Pressure Non-Invasive 108 mmHg Diastolic Blood Pressure Non-Invasive 68 mmHg 07/13/2022 18:30 EDT Heart Rate Monitored 82 bpm Systolic Blood Pressure Non-Invasive 96 mmHg Diastolic Blood Pressure Non-Invasive 47 mmHg <LLOW 07/13/2022 18:15 EDT Heart Rate Monitored 78 bpm Systolic Blood Pressure Non-Invasive 100 mmHg Diastolic Blood Pressure Non-Invasive 58 mmHg LOW 07/13/2022 17:45 EDT Temperature Oral 36.8 DegC Heart Rate Monitored 75 bpm Respiratory Rate 18 br/min Systolic Blood Pressure Non-Invasive 94 mmHg Diastolic Blood Pressure Non-Invasive 52 mmHg LOW 07/13/2022 17:30 EDT Heart Rate Monitored 75 bpm Systolic Blood Pressure Non-Invasive 119 mmHg Diastolic Blood Pressure Non-Invasive 81 mmHg 07/13/2022 17:15 EDT Heart Rate Monitored 83 bpm Systolic Blood Pressure Non-Invasive 124 mmHg Diastolic Blood Pressure Non-Invasive 71 mmHg 07/13/2022 17:00 EDT Heart Rate Monitored 89 bpm Systolic Blood Pressure Non-Invasive 113 mmHg Diastolic Blood Pressure Non-Invasive 65 mmHg 07/13/2022 16:45 EDT Heart Rate Monitored 83 bpm Systolic Blood Pressure Non-Invasive 115 mmHg Diastolic Blood Pressure Non-Invasive 70 mmHg 07/13/2022 16:30 EDT Heart Rate Monitored 75 bpm Systolic Blood Pressure Non-Invasive 122 mmHg Diastolic Blood Pressure Non-Invasive 68 mmHg 07/13/2022 16:15 EDT Heart Rate Monitored 74 bpm Systolic Blood Pressure Non-Invasive 120 mmHg Diastolic Blood Pressure Non-Invasive 74 mmHg 07/13/2022 16:00 EDT Heart Rate Monitored 72 bpm Systolic Blood Pressure Non-Invasive 103 mmHg Diastolic Blood Pressure Non-Invasive 57 mmHg LOW 07/13/2022 15:45 EDT Temperature Oral 36.8 DegC Heart Rate Monitored 72 bpm Respiratory Rate 16 br/min Systolic Blood Pressure Non-Invasive 123 mmHg Diastolic Blood Pressure Non-Invasive 75 mmHg 07/13/2022 15:30 EDT Heart Rate Monitored 73 bpm Systolic Blood Pressure Non-Invasive 117 mmHg Diastolic Blood Pressure Non-Invasive 73 mmHg 07/13/2022 15:15 EDT Heart Rate Monitored 72 bpm Systolic Blood Pressure Non-Invasive 118 mmHg Diastolic Blood Pressure Non-Invasive 75 mmHg 07/13/2022 15:00 EDT Heart Rate Monitored 69 bpm Systolic Blood Pressure Non-Invasive 117 mmHg Diastolic Blood Pressure Non-Invasive 73 mmHg 07/13/2022 14:45 EDT Heart Rate Monitored 72 bpm Systolic Blood Pressure Non-Invasive 116 mmHg Diastolic Blood Pressure Non-Invasive 71 mmHg 07/13/2022 14:30 EDT Heart Rate Monitored 73 bpm Systolic Blood Pressure Non-Invasive 107 mmHg Diastolic Blood Pressure Non-Invasive 65 mmHg 07/13/2022 14:15 EDT Heart Rate Monitored 84 bpm Systolic Blood Pressure Non-Invasive 99 mmHg Diastolic Blood Pressure Non-Invasive 61 mmHg 07/13/2022 14:00 EDT Heart Rate Monitored 85 bpm Systolic Blood Pressure Non-Invasive 104 mmHg Diastolic Blood Pressure Non-Invasive 58 mmHg LOW 07/13/2022 13:45 EDT Heart Rate Monitored 75 bpm Systolic Blood Pressure Non-Invasive 118 mmHg Diastolic Blood Pressure Non-Invasive 66 mmHg 07/13/2022 13:30 EDT Heart Rate Monitored 80 bpm Systolic Blood Pressure Non-Invasive 122 mmHg Diastolic Blood Pressure Non-Invasive 68 mmHg 07/13/2022 13:15 EDT Heart Rate Monitored 77 bpm Systolic Blood Pressure Non-Invasive 111 mmHg Diastolic Blood Pressure Non-Invasive 72 mmHg 07/13/2022 13:00 EDT Heart Rate Monitored 75 bpm Systolic Blood Pressure Non-Invasive 122 mmHg Diastolic Blood Pressure Non-Invasive 76 mmHg 07/13/2022 12:45 EDT Temperature Oral 36.8 DegC Heart Rate Monitored 76 bpm Respiratory Rate 16 br/min Systolic Blood Pressure Non-Invasive 117 mmHg Diastolic Blood Pressure Non-Invasive 77 mmHg 07/13/2022 12:30 EDT Heart Rate Monitored 75 bpm Systolic Blood Pressure Non-Invasive 117 mmHg Diastolic Blood Pressure Non-Invasive 71 mmHg 07/13/2022 12:15 EDT Heart Rate Monitored 76 bpm Systolic Blood Pressure Non-Invasive 118 mmHg Diastolic Blood Pressure Non-Invasive 72 mmHg 07/13/2022 12:00 EDT Heart Rate Monitored 82 bpm Systolic Blood Pressure Non-Invasive 125 mmHg Diastolic Blood Pressure Non-Invasive 77 mmHg 07/13/2022 11:45 EDT Heart Rate Monitored 72 bpm Systolic Blood Pressure Non-Invasive 122 mmHg Diastolic Blood Pressure Non-Invasive 76 mmHg 07/13/2022 11:30 EDT Heart Rate Monitored 72 bpm Systolic Blood Pressure Non-Invasive 121 mmHg Diastolic Blood Pressure Non-Invasive 77 mmHg 07/13/2022 11:15 EDT Heart Rate Monitored 81 bpm Systolic Blood Pressure Non-Invasive 96 mmHg Diastolic Blood Pressure Non-Invasive 65 mmHg 07/13/2022 11:00 EDT Heart Rate Monitored 77 bpm Systolic Blood Pressure Non-Invasive 99 mmHg Diastolic Blood Pressure Non-Invasive 64 mmHg 07/13/2022 10:45 EDT Heart Rate Monitored 72 bpm Systolic Blood Pressure Non-Invasive 104 mmHg Diastolic Blood Pressure Non-Invasive 64 mmHg 07/13/2022 10:30 EDT Temperature Oral 36.8 DegC Heart Rate Monitored 77 bpm Systolic Blood Pressure Non-Invasive 99 mmHg Diastolic Blood Pressure Non-Invasive 58 mmHg LOW 07/13/2022 10:15 EDT Heart Rate Monitored 76 bpm Systolic Blood Pressure Non-Invasive 107 mmHg Diastolic Blood Pressure Non-Invasive 60 mmHg 07/13/2022 10:00 EDT Heart Rate Monitored 76 bpm Systolic Blood Pressure Non-Invasive 111 mmHg Diastolic Blood Pressure Non-Invasive 59 mmHg LOW 07/13/2022 9:45 EDT Heart Rate Monitored 72 bpm Systolic Blood Pressure Non-Invasive 113 mmHg Diastolic Blood Pressure Non-Invasive 71 mmHg 07/13/2022 9:35 EDT Temperature Oral 36.8 DegC Respiratory Rate 16 br/min 07/13/2022 9:30 EDT Heart Rate Monitored 79 bpm Systolic Blood Pressure Non-Invasive 117 mmHg Diastolic Blood Pressure Non-Invasive 78 mmHg 07/13/2022 9:15 EDT Heart Rate Monitored 86 bpm Systolic Blood Pressure Non-Invasive 106 mmHg Diastolic Blood Pressure Non-Invasive 69 mmHg 07/13/2022 9:00 EDT Heart Rate Monitored 104 bpm HI Systolic Blood Pressure Non-Invasive 85 mmHg LOW Diastolic Blood Pressure Non-Invasive 26 mmHg <LLOW 07/13/2022 8:45 EDT Heart Rate Monitored 70 bpm Systolic Blood Pressure Non-Invasive 106 mmHg Diastolic Blood Pressure Non-Invasive 70 mmHg 07/13/2022 8:30 EDT Heart Rate Monitored 75 bpm Systolic Blood Pressure Non-Invasive 104 mmHg Diastolic Blood Pressure Non-Invasive 71 mmHg 07/13/2022 8:15 EDT Heart Rate Monitored 74 bpm Systolic Blood Pressure Non-Invasive 116 mmHg Diastolic Blood Pressure Non-Invasive 62 mmHg 07/13/2022 8:02 EDT Heart Rate Monitored 101 bpm HI Systolic Blood Pressure Non-Invasive 104 mmHg Diastolic Blood Pressure Non-Invasive 59 mmHg LOW 07/13/2022 8:00 EDT Heart Rate Monitored 85 bpm Systolic Blood Pressure Non-Invasive 151 mmHg HI (Modified) Diastolic Blood Pressure Non-Invasive 115 mmHg >HHI (Modified) 07/13/2022 7:45 EDT Heart Rate Monitored 87 bpm Systolic Blood Pressure Non-Invasive 120 mmHg Diastolic Blood Pressure Non-Invasive 86 mmHg 07/13/2022 7:30 EDT Temperature Oral 36.7 DegC Heart Rate Monitored 83 bpm Respiratory Rate 16 br/min Systolic Blood Pressure Non-Invasive 125 mmHg Diastolic Blood Pressure Non-Invasive 98 mmHg HI 07/13/2022 7:15 EDT Heart Rate Monitored 86 bpm Systolic Blood Pressure Non-Invasive 110 mmHg Diastolic Blood Pressure Non-Invasive 82 mmHg 07/13/2022 7:00 EDT Heart Rate Monitored 79 bpm Systolic Blood Pressure Non-Invasive 125 mmHg Diastolic Blood Pressure Non-Invasive 77 mmHg 07/13/2022 6:45 EDT Heart Rate Monitored 82 bpm Systolic Blood Pressure Non-Invasive 123 mmHg Diastolic Blood Pressure Non-Invasive 85 mmHg 07/13/2022 6:30 EDT Heart Rate Monitored 83 bpm Systolic Blood Pressure Non-Invasive 130 mmHg Diastolic Blood Pressure Non-Invasive 87 mmHg 07/13/2022 6:15 EDT Heart Rate Monitored 79 bpm Systolic Blood Pressure Non-Invasive 116 mmHg Diastolic Blood Pressure Non-Invasive 78 mmHg 07/13/2022 6:00 EDT Heart Rate Monitored 77 bpm Systolic Blood Pressure Non-Invasive 130 mmHg Diastolic Blood Pressure Non-Invasive 86 mmHg 07/13/2022 5:45 EDT Heart Rate Monitored 77 bpm Systolic Blood Pressure Non-Invasive 120 mmHg Diastolic Blood Pressure Non-Invasive 82 mmHg 07/13/2022 5:30 EDT Heart Rate Monitored 79 bpm Systolic Blood Pressure Non-Invasive 128 mmHg Diastolic Blood Pressure Non-Invasive 80 mmHg 07/13/2022 5:15 EDT Heart Rate Monitored 87 bpm Systolic Blood Pressure Non-Invasive 124 mmHg Diastolic Blood Pressure Non-Invasive 69 mmHg 07/13/2022 4:45 EDT Heart Rate Monitored 109 bpm HI Systolic Blood Pressure Non-Invasive 124 mmHg Diastolic Blood Pressure Non-Invasive 94 mmHg HI 07/13/2022 4:30 EDT Heart Rate Monitored 86 bpm Systolic Blood Pressure Non-Invasive 119 mmHg Diastolic Blood Pressure Non-Invasive 68 mmHg 07/13/2022 4:15 EDT Heart Rate Monitored 75 bpm Systolic Blood Pressure Non-Invasive 111 mmHg Diastolic Blood Pressure Non-Invasive 61 mmHg 07/13/2022 4:00 EDT Heart Rate Monitored 70 bpm Systolic Blood Pressure Non-Invasive 114 mmHg Diastolic Blood Pressure Non-Invasive 72 mmHg 07/13/2022 3:30 EDT Heart Rate Monitored 73 bpm Systolic Blood Pressure Non-Invasive 117 mmHg Diastolic Blood Pressure Non-Invasive 67 mmHg 07/13/2022 3:15 EDT Heart Rate Monitored 72 bpm Systolic Blood Pressure Non-Invasive 105 mmHg Diastolic Blood Pressure Non-Invasive 72 mmHg 07/13/2022 3:00 EDT Heart Rate Monitored 70 bpm Systolic Blood Pressure Non-Invasive 103 mmHg Diastolic Blood Pressure Non-Invasive 67 mmHg 07/13/2022 2:45 EDT Heart Rate Monitored 70 bpm Systolic Blood Pressure Non-Invasive 108 mmHg Diastolic Blood Pressure Non-Invasive 71 mmHg 07/13/2022 2:30 EDT Heart Rate Monitored 73 bpm Systolic Blood Pressure Non-Invasive 110 mmHg Diastolic Blood Pressure Non-Invasive 72 mmHg 07/13/2022 2:15 EDT Heart Rate Monitored 73 bpm Systolic Blood Pressure Non-Invasive 115 mmHg Diastolic Blood Pressure Non-Invasive 74 mmHg 07/13/2022 2:00 EDT Heart Rate Monitored 73 bpm Systolic Blood Pressure Non-Invasive 110 mmHg Diastolic Blood Pressure Non-Invasive 63 mmHg 07/13/2022 1:45 EDT Heart Rate Monitored 72 bpm Systolic Blood Pressure Non-Invasive 125 mmHg Diastolic Blood Pressure Non-Invasive 77 mmHg 07/13/2022 1:30 EDT Heart Rate Monitored 73 bpm Systolic Blood Pressure Non-Invasive 107 mmHg Diastolic Blood Pressure Non-Invasive 65 mmHg 07/13/2022 1:15 EDT Heart Rate Monitored 87 bpm Systolic Blood Pressure Non-Invasive 113 mmHg Diastolic Blood Pressure Non-Invasive 76 mmHg 07/13/2022 0:45 EDT Heart Rate Monitored 70 bpm Systolic Blood Pressure Non-Invasive 108 mmHg Diastolic Blood Pressure Non-Invasive 69 mmHg 07/13/2022 0:30 EDT Heart Rate Monitored 74 bpm Systolic Blood Pressure Non-Invasive 104 mmHg Diastolic Blood Pressure Non-Invasive 76 mmHg 07/13/2022 0:15 EDT Heart Rate Monitored 73 bpm Systolic Blood Pressure Non-Invasive 116 mmHg Diastolic Blood Pressure Non-Invasive 71 mmHg 07/13/2022 0:00 EDT Heart Rate Monitored 63 bpm Systolic Blood Pressure Non-Invasive 117 mmHg Diastolic Blood Pressure Non-Invasive 79 mmHg , Oxygen Therapy : Oxygen Therapy & Oxygenation Information 07/14/2022 19:30 EDT Oxygen Saturation 97 % 07/14/2022 15:16 EDT Oxygen Saturation 99 % 07/14/2022 13:00 EDT Oxygen Saturation 100 % 07/14/2022 7:54 EDT Oxygen Saturation 98 % 07/14/2022 5:25 EDT Oxygen Saturation 95 % 07/14/2022 4:45 EDT Oxygen Therapy Room air Oxygen Saturation 96 % 07/14/2022 4:30 EDT Oxygen Therapy Room air Oxygen Saturation 94 % 07/14/2022 4:15 EDT Oxygen Therapy Room air Oxygen Saturation 94 % 07/14/2022 4:00 EDT Oxygen Therapy Room air Oxygen Saturation 94 % 07/14/2022 3:45 EDT Oxygen Therapy Room air Oxygen Saturation 97 % 07/14/2022 3:35 EDT Oxygen Saturation 96.6 % % 07/14/2022 3:30 EDT Oxygen Saturation 96.4 % % 07/14/2022 3:25 EDT Oxygen Saturation 96.6 % % 07/14/2022 3:20 EDT Oxygen Saturation 96.9 % % 07/14/2022 3:15 EDT Oxygen Saturation 96.2 % % 07/14/2022 3:10 EDT Oxygen Saturation 97.6 % % 07/14/2022 3:05 EDT Oxygen Saturation 97.6 % % 07/14/2022 3:00 EDT Oxygen Saturation 95 % % 07/14/2022 2:55 EDT Oxygen Saturation 93.2 % % 07/14/2022 2:50 EDT Oxygen Saturation 92.9 % % 07/14/2022 2:45 EDT Oxygen Saturation 94.1 % % 07/14/2022 2:40 EDT Oxygen Saturation 94.5 % % 07/14/2022 2:35 EDT Oxygen Saturation 95.1 % % 07/14/2022 2:22 EDT Oxygen Saturation 98 % 07/14/2022 2:15 EDT Oxygen Saturation 98 % 07/14/2022 1:45 EDT Oxygen Saturation 98 % 07/14/2022 1:30 EDT Oxygen Saturation 98 % 07/14/2022 1:15 EDT Oxygen Saturation 99 % 07/14/2022 1:00 EDT Oxygen Saturation 98 % 07/14/2022 0:45 EDT Oxygen Saturation 100 % 07/14/2022 0:30 EDT Oxygen Saturation 100 % 07/14/2022 0:15 EDT Oxygen Saturation 97 % 07/14/2022 0:00 EDT Oxygen Saturation 100 % 07/13/2022 23:45 EDT Oxygen Saturation 100 % 07/13/2022 23:30 EDT Oxygen Saturation 100 % 07/13/2022 23:15 EDT Oxygen Saturation 100 % 07/13/2022 23:00 EDT Oxygen Saturation 99 % 07/13/2022 22:45 EDT Oxygen Saturation 98 % 07/13/2022 22:30 EDT Oxygen Saturation 100 % 07/13/2022 22:15 EDT Oxygen Saturation 100 % 07/13/2022 22:00 EDT Oxygen Saturation 100 % 07/13/2022 21:45 EDT Oxygen Saturation 100 % 07/13/2022 21:30 EDT Oxygen Saturation 100 % 07/13/2022 21:15 EDT Oxygen Saturation 100 % 07/13/2022 21:00 EDT Oxygen Saturation 100 % 07/13/2022 20:45 EDT Oxygen Saturation 99 % 07/13/2022 20:30 EDT Oxygen Saturation 100 % 07/13/2022 20:15 EDT Oxygen Saturation 100 % 07/13/2022 20:00 EDT Oxygen Saturation 99 % 07/13/2022 19:45 EDT Oxygen Saturation 100 % 07/13/2022 19:30 EDT Oxygen Saturation 100 % 07/13/2022 19:15 EDT Oxygen Saturation 99 % 07/13/2022 19:00 EDT Oxygen Saturation 99 % 07/13/2022 18:45 EDT Oxygen Saturation 99 % 07/13/2022 18:30 EDT Oxygen Saturation 98 % 07/13/2022 18:15 EDT Oxygen Saturation 98 % 07/13/2022 17:45 EDT Oxygen Saturation 99 % 07/13/2022 17:30 EDT Oxygen Saturation 100 % 07/13/2022 17:15 EDT Oxygen Saturation 100 % 07/13/2022 17:00 EDT Oxygen Saturation 98 % 07/13/2022 16:45 EDT Oxygen Saturation 99 % 07/13/2022 16:30 EDT Oxygen Saturation 100 % 07/13/2022 16:15 EDT Oxygen Saturation 100 % 07/13/2022 16:00 EDT Oxygen Saturation 99 % 07/13/2022 15:45 EDT Oxygen Saturation 98 % 07/13/2022 15:30 EDT Oxygen Saturation 99 % 07/13/2022 15:15 EDT Oxygen Saturation 98 % 07/13/2022 15:00 EDT Oxygen Saturation 98 % 07/13/2022 14:45 EDT Oxygen Saturation 99 % 07/13/2022 14:30 EDT Oxygen Saturation 98 % 07/13/2022 14:15 EDT Oxygen Saturation 98 % 07/13/2022 14:00 EDT Oxygen Saturation 99 % 07/13/2022 13:45 EDT Oxygen Saturation 99 % 07/13/2022 13:30 EDT Oxygen Saturation 99 % 07/13/2022 13:15 EDT Oxygen Saturation 100 % 07/13/2022 13:00 EDT Oxygen Saturation 100 % 07/13/2022 12:45 EDT Oxygen Saturation 98 % 07/13/2022 12:30 EDT Oxygen Saturation 99 % 07/13/2022 12:15 EDT Oxygen Saturation 99 % 07/13/2022 12:00 EDT Oxygen Saturation 100 % 07/13/2022 11:45 EDT Oxygen Saturation 100 % 07/13/2022 11:30 EDT Oxygen Saturation 100 % 07/13/2022 11:15 EDT Oxygen Saturation 99 % 07/13/2022 11:00 EDT Oxygen Saturation 99 % 07/13/2022 10:45 EDT Oxygen Saturation 99 % 07/13/2022 10:30 EDT Oxygen Saturation 100 % 07/13/2022 10:15 EDT Oxygen Saturation 97 % 07/13/2022 10:00 EDT Oxygen Saturation 98 % 07/13/2022 9:45 EDT Oxygen Saturation 99 % 07/13/2022 9:30 EDT Oxygen Saturation 99 % 07/13/2022 9:15 EDT Oxygen Saturation 100 % 07/13/2022 9:00 EDT Oxygen Saturation 100 % 07/13/2022 8:45 EDT Oxygen Saturation 97 % 07/13/2022 8:30 EDT Oxygen Saturation 98 % 07/13/2022 8:15 EDT Oxygen Saturation 98 % 07/13/2022 8:00 EDT Oxygen Saturation 99 % 07/13/2022 7:45 EDT Oxygen Saturation 100 % 07/13/2022 7:30 EDT Oxygen Therapy Room air Oxygen Saturation 100 % 07/13/2022 7:15 EDT Oxygen Saturation 100 % 07/13/2022 7:00 EDT Oxygen Saturation 99 % 07/13/2022 6:45 EDT Oxygen Saturation 100 % 07/13/2022 6:30 EDT Oxygen Saturation 99 % 07/13/2022 6:15 EDT Oxygen Saturation 100 % 07/13/2022 6:00 EDT Oxygen Saturation 99 % 07/13/2022 5:45 EDT Oxygen Saturation 100 % 07/13/2022 5:30 EDT Oxygen Saturation 100 % 07/13/2022 5:15 EDT Oxygen Saturation 100 % 07/13/2022 5:00 EDT Oxygen Saturation 100 % 07/13/2022 4:45 EDT Oxygen Saturation 100 % 07/13/2022 4:30 EDT Oxygen Saturation 100 % 07/13/2022 4:15 EDT Oxygen Saturation 100 % 07/13/2022 4:00 EDT Oxygen Saturation 99 % 07/13/2022 3:45 EDT Oxygen Saturation 99 % 07/13/2022 3:30 EDT Oxygen Saturation 99 % 07/13/2022 3:15 EDT Oxygen Saturation 99 % 07/13/2022 3:00 EDT Oxygen Saturation 99 % 07/13/2022 2:45 EDT Oxygen Saturation 99 % 07/13/2022 2:30 EDT Oxygen Saturation 99 % 07/13/2022 2:15 EDT Oxygen Saturation 100 % 07/13/2022 2:00 EDT Oxygen Saturation 100 % 07/13/2022 1:45 EDT Oxygen Saturation 100 % 07/13/2022 1:30 EDT Oxygen Saturation 100 % 07/13/2022 1:15 EDT Oxygen Saturation 100 % 07/13/2022 1:00 EDT Oxygen Saturation 100 % 07/13/2022 0:45 EDT Oxygen Saturation 99 % 07/13/2022 0:30 EDT Oxygen Saturation 98 % 07/13/2022 0:15 EDT Oxygen Saturation 98 % 07/13/2022 0:00 EDT Oxygen Saturation 99 % . Mental status: at preoperative baseline. Respiratory function: respirations are non-labored. Respiratory support: none. CV function: sinus tachycardia. Cardiovascular support: none. Pain. Nausea status: see nursing documentation of medications. Postoperative hydration status: within normal limits. Digitally Signed by KHADIJAH NEVAREZ MD on 07/14/2022 09:17 PM [facility] Evaluation + Plan note No data available for this section [facility] Evaluation noteNo assessment information available [facility] Work Phone: Hospital Discharge instructions No data available for this section [facility] Progress note No data available for this section [facility] Progeepf note Author Holly Ramirez [facility] Note Date/Time July 04, 2024 11:15 am [facility] [address], [address] [place] [address] OFFICE VISIT Date of Service: 07/04/24 MR#: [id number] Acct: [id number] Name: JERMAIN GERARD Rep #: [id number] : 2000 Provider: Dr. Lula Lindsey DO Age/Sex: 24/F Location: [facility] Status: Signed Intake Vital Signs 04/13/24 10:21 06/08/24 11:48 07/04/24 10:50 07/04/24 10:51 Height 5 ft 5 in 5 ft 5 in 5 ft 5 in 5 ft 5 in Weight: 209 lb 8 oz BMI 34.8 BP 110/76 Intake Visit Reasons: 24 wk ob Vp Scientific Required: No Is patient in pain?: No Allergies No Known Allergies Allergy (Verified 07/04/24 10:50) Medications ?Medication ?Instructions ?Recorded ?Confirmed ?Type organ concentrates 80 mg capsule mg PO 08/02/23 History cholecalciferol (vitamin D3) 10 10 mcg PO QDAY 5 07/04/24 History mcg (400 unit) capsule docosahexaenoic acid 200 mg mg PO 03/02/24 07/04/24 Hi story capsule ( DHA) Last Menstrual Period: 01/17/24 Zika: Zika virus screening: Negative : No PFSH PFSH Medical History Early stage of Partial hydatidiform mole Wears glasses Surgical History S/P D&C (status post dilation and curettage) H/O laparoscopy History of delivery Family History Mother Asthma Grandfather COPD (chronic obstructive pulmonary disease) Diabetes Social History adopted: No household members: spouse and children number of children: 1 current occupational status: 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 pets and animals: Yes pets and animals: dog(s) history of recent travel: Yes ([place] - Beginning of Feb 2024) out of state: Yes out of country: No sexually active: Yes Smoking Status: Never smoker second hand exposure: No alcohol intake: current alcohol intake frequency: holidays/special occasions only details: not during substance use type: does not use well-balanced diet: daily or most days caffeine: Yes eating out: rarely or never during the past year weight has: remained stable what type of physical activity do you participate in: walking frequency: 3-4 times per week duration: 15-30 minutes/day jerome/presybeterian: None seatbelt use: always do you feel safe at home: Yes additional social history: : Boubacar grullon History 3 Elective abortions Hx Para 1 Spontaneous abortions 1 Hx # Term Pregnancies Ectopic pregnancies Hx # Pregnancies Multiple births # of living children 1 Past Pregnancies Del. Date Name GA/Weeks Outcome Route Bth Weight Infant Gen Labor Lgth Anesthesia Del Locatn Provider FOB 07/14/22 Bora 39 live - full term 8lbs 6oz Female epidural Darek Hamlin 06/08/23 6 molar Delivery Date: 07/14/22 Last Updated by: Marcela Patrick RN Csec d/t stuck in canal & mec aspirate - NICU x6days Delivery Date: 06/08/23 Last Updated by: Marcela Patrick RN D&C @ about 8weeks HPI 24 wk ob Details: JERMAIN GERARD is a 24 year old who presents for routine OB visit. OB Visit NATAN Calculator Estimated Delivery Date Method Current WG Current Estimate 10/23/24 LMP (Certain) 24w 1d Other Estimates 10/25/24 Ultrasound #1 23w 6d Expected Delivery Route/Plan wants to try Specific Issue/Plans Covid status: [] Flu vaccine: [] Tdap vaccine: [] Rhogam: [] LARC form signed: [] Problem list reviewed and updated with the most current plan of care details and appropriate orders placed. Relevant counseling for the gestational age provided. Continue routine care and follow up unless otherwise noted in visit notes/problem list details Initial Weight: Not Recorded Date -?-?-?-?-?-?-?-?-?-?-?-?- EGA Weight BP Urine Prot -?-?-?-?-?-?-?-?-?-?-?-?- Glucose FHR FuHt Pres Dilation -?-?-?-?-?-?-?-?-?-?-?-?- Effaced St Visit Note 03/16/24 -?-?-?-?-?-?-?-?-?-?-?-?- 8w 3d 192 lb 6 oz 119/79 -?-?-?-?-?-?-?-?-?-?-?-?- 165 -?-?-?-?-?-?-?-?-?-?-?-?- JV- CRL consiste nt with first ultrasound. desires NIPT. will return in 2 weeks to do all labs. 04/13/24 -?-?-?-?-?-?-?-?-?-?-?-?- 12w 3d 193 lb 6 oz 118/84 Nega tive -?-?-?-?-?-?-?-?-?-?-?-?- Negative 168 -?-?-?-?-?-?-?-?-?-?-?-?- KW-no vb/crampin g. US ordered. 05/09/24 -?-?-?-?-?-?-?-?-?-?-?-?- 16w 1d 196 lb 6 oz 112/76 Nega tive -?-?-?-?-?-?-?-?-?-?-?-?- Negative 152 -?-?-?-?-?-?-?-?-?-?-?-?- MH-No VB. Nausea persists but not daily. 06/08/24 -?-?-?-?-?-?-?-?-?-?-?-?- 20w 3d 204 lb 2 oz 107/74 Nega tive -?-?-?-?-?-?-?-?-?-?-?-?- Negative 145 -?-?-?-?-?-?-?-?-?-?-?-?- SM- no vb lof go od fm nor euglar ctx 07/04/24 -?-?-?-?-?-?-?-?-?-?-?-?- 24w 1d 209 lb 8 oz 110/76 Nega tive -?-?-?-?-?-?-?-?-?-?-?-?- Negative 137 25 -?-?-?-?-?-?-?-?-?-?-?-?- JV- no lof, vagi nal bleeding, and ++ fm. glucola next visit. declines tdap. ACOG First Trimester First Trimester: Discussed Results POC Urinalysis 2 Dip (Clinic) Office Urine Glucose Negative Last Edit by Janel Lynn on 07/04/24 10: 59 Office Urine Protein Negative Last Edit by Janel Lynn on 07/04/24 10: 59 Coding Level of Care Code OB Routine Diagnoses Obesity affecting in second trimester, unspecified obesity type O99.212 Obesity type affecting : unspecified obesity Trimester: second trimester History of delivery, currently O34.219 History of molar Z87.59 Supervision of high risk in second trimester O09.92 Trimester: second trimester 24 weeks gestation of Z3A.24 Weeks of gestation: 24 weeks History of asthma Z87.09 Assessment and Plan Assessment and Plan (1) Obesity affecting : Status: Acute Qualifiers: Obesity type affecting : unspecified obesity Trimester: second trimester Qualified Code(s): O99.212 - Obesity complicating , second trimester Comment: BMI 30.1, HgBA1C ordered w/NOB (2) History of delivery, currently : Status: Acute Comment: x1 (2022), Desires (3) History of molar : Status: Acute Comment: June 2023- after delivery draw hcg to zero (4) Supervision of high-risk : Status: Acute Qualifiers: Trimester: second trimester Qualified Code(s): O09.92 - Supervision of high risk , unspecified, second trimester Comment: PRR, , NATAN 10/23/24, PC: Bora, : Boubacar (5) : Status: Acute Qualifiers: Weeks of gestation: 24 weeks Qualified Code(s): Z3A.24 - 24 weeks gestation of Comment: NIPT low risk (6) History of asthma: Status: Acute Comment: Childhood Orders: Orders POC Urinalysis 2 Dip (Clinic) Today CBC W/Diff, Automated Today O09.92 - Supervision of high risk , unspecified, second trimester Glucose Challenge Gest 1H 50g Today O - Supervision of high risk , unspecified, second trimester, Z13.1 - Encounter for screening for diabetes mellitus HIV Today O - Supervision of high risk , unspecified, second trimester Syphilis Antibodies Today O - Supervision of high risk , unspecified, second trimester 07/04/24 1115 <Electronically signed by Holly Malcolm DO> Date _ Holly Lindsey DO Cosigner Signature: Date (if applicable) CC: ~ [facility] Work Phone: Progress note Author Jorge Valente [facility] Note Date/Time August 15, 2024 11:47 am [facility] [address], [address] [place] [address] OFFICE VISIT Date of Service: 08/15/24 MR#: [id number] Acct: [id number] Name: JERMAIN GERARD Rep #: [id number] : 2000 Provider: FABBY Valente Age/Sex: 24/F Location: [facility] Status: Signed Intake Vital Signs 07/04/24 10:51 07/30/24 15:24 08/15/24 11:21 Height 5 ft 5 in 5 ft 5 in 5 ft 5 in Weight: 214 lb 6 oz BMI 35.6 BP 109/77 Intake Visit Reasons: 30wk ob Vp Scientific Required: No Is patient in pain?: No Allergies No Known Allergies Allergy (Verified 08/15/24 11:20) Medications ?Medication ?Instructions ?Recorded ?Confirmed ?Type organ concentrates 80 mg capsule mg PO 08/02/23 History cholecalciferol (vitamin D3) 10 10 mcg PO QDAY 5 08/15/24 History mcg (400 unit) capsule docosahexaenoic acid 200 mg mg PO 03/02/24 08/15/24 Hi story capsule ( DHA) Last Menstrual Period: 01/17/24 : Yes PFSH PFSH Medical History Early stage of Partial hydatidiform mole Wears glasses Surgical History S/P D&C (status post dilation and curettage) H/O laparoscopy History of delivery Family History Mother Asthma Grandfather COPD (chronic obstructive pulmonary disease) Diabetes Social History adopted: No household members: spouse and children number of children: 1 current occupational status: employed 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/hazards: No pets and animals: Yes pets and animals: dog(s) history of recent travel: Yes ([place] - Beginning of Feb 2024) out of state: Yes out of country: No sexually active: Yes Smoking Status: Never smoker second hand exposure: No alcohol intake: current alcohol intake frequency: holidays/special occasions only details: not during substance use type: does not use well-balanced diet: daily or most days caffeine: Yes eating out: rarely or never during the past year weight has: remained stable what type of physical activity do you participate in: walking frequency: 3-4 times per week duration: 15-30 minutes/day jerome/presybeterian: None seatbelt use: always do you feel safe at home: Yes additional social history: : Boubacar grullon History 3 Elective abortions Hx Para 1 Spontaneous abortions 1 Hx # Term Pregnancies Ectopic pregnancies Hx # Pregnancies Multiple births # of living children 1 Past Pregnancies Del. Date Name GA/Weeks Outcome Route Bth Weight Gen Labor Lgth Anesthesia Del Locatn Provider FOB 07/14/22 Bora 39 live - full term 8lbs 6oz Female epidural Darek Hamlin 06/08/23 6 molar Delivery Date: 07/14/22 Last Updated by: Marcela Patrick RN [facility] d/t stuck in canal & mec aspirate - NICU x6days Delivery Date: 06/08/23 Last Updated by: Marcela Patrick RN D&C @ about 8weeks HPI 30wk ob Details: JERMAIN GERARD is a 24 year old who presents for routine OB visit. OB Visit NATAN Calculator 2 Estimated Delivery Date Method Current WG Current Estimate 10/23/24 LMP (Certain) 30w 1d Other Estimates 10/25/24 Ultrasound #1 29w 6d Expected Delivery Route/Plan wants to try Specific Issue/Plans Covid status: [] Flu vaccine: [] Tdap vaccine: [] Rhogam: NA LARC form signed: yes Problem list reviewed and updated with the most current plan of care details and appropriate orders placed. Relevant counseling for the gestational age provided. Continue routine care and follow up unless otherwise noted in visit notes/problem list details Initial Weight: Not Recorded Date -?-?-?-?-?-?-?-?-?-?-?-?- EGA Weight BP Urine Prot -?-?-?-?-?-?-?-?-?-?-?-?- Glucose FHR FuHt Pres Dilation -?-?-?-?-?-?-?-?-?-?-?-?- Effaced St Visit Note 03/16/24 -?-?-?-?-?-?-?-?-?-?-?-?- 8w 3d 192 lb 6 oz 119/79 -?-?-?-?-?-?-?-?-?-?-?-?- 165 -?-?-?-?-?-?-?-?-?-?-?-?- JV- CRL consiste nt with first ultrasound. desires NIPT. will return in 2 weeks to do all labs. 04/13/24 -?-?-?-?-?-?-?-?-?-?-?-?- 12w 3d 193 lb 6 oz 118/84 Nega tive -?-?-?-?-?-?-?-?-?-?-?-?- Negative 168 -?-?-?-?-?-?-?-?-?-?-?-?- KW-no vb/ferdinandin getachew. US ordered. 05/09/24 -?-?-?-?-?-?-?-?-?-?-?-?- 16w 1d 196 lb 6 oz 112/76 Nega tive -?-?-?-?-?-?-?-?-?-?-?-?- Negative 152 -?-?-?-?-?-?-?-?-?-?-?-?- MH-No VB. Nausea persists but not daily. 06/08/24 -?-?-?-?-?-?-?-?-?-?-?-?- 20w 3d 204 lb 2 oz 107/74 Nega tive -?-?-?-?-?-?-?-?-?-?-?-?- Negative 145 -?-?-?-?-?-?-?-?-?-?-?-?- SM- no vb lof go od fm nor euglar ctx 07/04/24 -?-?-?-?-?-?-?-?-?-?-?-?- 24w 1d 209 lb 8 oz 110/76 Nega tive -?-?-?-?-?-?-?-?-?-?-?-?- Negative 137 25 -?-?-?-?-?-?-?-?-?-?-?-?- JV- no lof, vagi nal bleeding, and ++ fm. glucola next visit. declines tdap. 07/30/24 -?-?-?-?-?-?-?-?-?-?-?-?- 27w 6d 216 lb 118/80 Negative -?-?-?-?-?-?-?-?-?-?-?-?- Negative 151 27 -?-?-?-?-?-?-?-?-?-?-?-?- MH-No VB, LOF.Go od Fm. 28 wk labs pending. Larc 08/15/24 -?-?-?-?-?-?-?-?-?-?-?-?- 30w 1d 214 lb 6 oz 109/77 Trac e -?-?-?-?-?-?-?-?-?-?-?-?- Negative 160 31 -?-?-?-?-?-?-?-?-?-?-?-?- KW- no vb/lof/ct x. good fm desires and would like to go to 41 weeks gestation. C/S records requested but according to pt was due to malposition at [place]. Pushed for 2 hours and was OP. ACOG First Trimester First Trimester: Second Trimester Second Trimester: Signs and Symptoms of Labor Third Trimester Third Trimester: Labor support person(s), Immediate Larc, Signs and Symptoms of Preeclampsia, Infant Feeding Yes and Family Medical Leave or Disability Forms ROS Const Reports system reviewed and no additional complaints, except as documented Eyes Reports system reviewed and no additional complaints, except as documented ENT Reports system reviewed and no additional complaints, except as documented Card Reports system reviewed and no additional complaints, except as documented Resp Reports system reviewed and no additional complaints, except as documented GI Reports system reviewed and no additional complaints, except as documented, Denies nausea and Denies vomiting Reports system reviewed and no additional complaints, except as documented Musc Reports system reviewed and no additional complaints, except as documented Skin/Breast Reports system reviewed and no additional complaints, except as documented Neuro Yes system reviewed and no additional complaints, except as documented Psych Reports system reviewed and no additional complaints, except as documented Endo Reports system reviewed and no additional complaints, except as documented Nixon/Lymph Reports system reviewed and no additional complaints, except as documented Aller/Immun Reports system reviewed and no additional complaints, except as documented Exam Const General: cooperative, healthy appearing and no acute distress Orientation: alert, awake and oriented x3 Neck Neck: normal visual inspection and full ROM Resp Effort & Inspection: normal respiratory effort, able to speak in complete sentences and symmetric chest movement GI Inspection: normal to inspection Palpation: soft and other Other: gravid Skin General: no rashes or lesions noted Neuro General: patient alert, patient awake and patient oriented x3 Cognition: normal cognition Speech: speech normal Gait: normal gait Motor: muscle tone normal throughout Extrem General: normal to inspection and full ROM Psych Appearance: grossly normal Mental Status: mental status grossly normal Mood: congruent mood Affect: normal affect Speech and Movement: speech and movement normal Attitude: cooperative Thought Process: normal Thought Content: normal Judgment: judgment good Results POC Urinalysis 2 Dip (Clinic) Office Urine Glucose Negative Last Edit by Khadijah Judith on 08/15/24 11:26 Office Urine Protein Trace Last Edit by Khadijah Wong on 08/15/24 11:26 Coding Level of Care Code OB Routine Diagnoses Obesity affecting in second trimester, unspecified obesity type O99.212 Obesity type affecting : unspecified obesity Trimester: second trimester History of delivery, currently O34.219 History of molar Z87.59 Supervision of high risk in second trimester O09.92 Trimester: second trimester 30 weeks gestation of Z3A.30 Weeks of gestation: 30 weeks History of asthma Z87.09 Assessment and Plan Assessment and Plan (1) Obesity affecting : Status: Acute Qualifiers: Obesity type affecting : unspecified obesity Trimester: second trimester Qualified Code(s): O99.212 - Obesity complicating , second trimester Comment: BMI 30.1, HgBA1C ordered w/NOB (2) History of delivery, currently : Status: Acute Comment: x1 (2022), Desires (3) History of molar : Status: Acute Comment: June 2023- after delivery draw hcg to zero (4) Supervision of high-risk : Status: Acute Qualifiers: Trimester: second trimester Qualified Code(s): O09.92 - Supervision of high risk , unspecified, second trimester Comment: PRR, , NATAN 10/23/24, PC: Bora, : Boubacar (5) : Status: Acute Qualifiers: Weeks of gestation: 30 weeks Qualified Code(s): Z3A.30 - 30 weeks gestation of Comment: NIPT low risk (6) History of asthma: Status: Acute Comment: Childhood Orders: Orders POC Urinalysis 2 Dip (Clinic) Today Plan Details Additional Comments: ACOG trimester education reviewed and updated. see problem list details for updated plan management information and see below for orders placed at this visit. GA appropriate handout given. 08/15/24 8029 <Electronically signed by Jorge gutierrez CNM> Date _ Jorge Casey FABBY Cosigner Signature: Date (if applicable) CC: ~ [facility] Work Phone: Progress note Author Jorge Valente [facility] Note Date/Time October 11, 2024 8:15am [facility] [address], [address] [place] [address] OFFICE VISIT Date of Service: 10/11/24 MR#: [id number] Acct: [id number] Name: JERMAIN GERARD Rep #: [id number] : 2000 Provider: FABBY Valente Age/Sex: 24/F Location: [facility] [place] Status: Signed Intake Vital Signs 08/28/24 14:41 10/02/24 14:55 10/11/24 07:57 Height 5 ft 5 in 5 ft 5 in 5 ft 5 in Weight: 219 lb 9 oz BMI 36.5 BP 112/79 Intake Visit Reasons: 38wk ob *trying for Chief Complaint: 38wk OB Vp Scientific Required: No Is patient in pain?: No Allergies No Known Allergies Allergy (Verified 10/11/24 07:55) Medications ?Medication ?Instructions ?Recorded ?Confirmed ?Type organ concentrates 80 mg capsule mg PO 08/02/23 History cholecalciferol (vitamin D3) 10 10 mcg PO QDAY 2 5 10/11/24 History mcg (400 unit) capsule docosahexaenoic acid 200 mg mg PO 03/02/24 10/11/24 Hi story capsule ( DHA) ferrous sulfate 325 mg (65 mg 325 mg PO QDAY 09/11/24 10/11/24 History iron) tablet Last Menstrual Period: 01/17/24 : No Have you fallen in the past year?: No PFSH PFSH Medical History Early stage of Partial hydatidiform mole Wears glasses Surgical History S/P D&C (status post dilation and curettage) H/O laparoscopy History of delivery Family History Mother Asthma Grandfather COPD (chronic obstructive pulmonary disease) Diabetes Social History adopted: No household members: spouse and children number of children: 1 current occupational status: employed 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/hazards: No pets and animals: Yes pets and animals: dog(s) history of recent travel: Yes ([place] - Beginning of Feb 2024) out of state: Yes out of country: No sexually active: Yes Smoking Status: Never smoker second hand exposure: No alcohol intake: current alcohol intake frequency: holidays/special occasions only details: not during substance use type: does not use well-balanced diet: daily or most days caffeine: Yes eating out: rarely or never during the past year weight has: remained stable what type of physical activity do you participate in: walking frequency: 3-4 times per week duration: 15-30 minutes/day jerome/presybeterian: None seatbelt use: always do you feel safe at home: Yes additional social history: : Boubacar grullon History 3 Elective abortions Hx Para 1 Spontaneous abortions 1 Hx # Term Pregnancies Ectopic pregnancies Hx # Pregnancies Multiple births # of living children 1 Past Pregnancies Del. Date Name GA/Weeks Outcome Route Bth Weight Gen Labor Lgth Anesthesia Del Locatn Provider FOB 07/14/22 Maeli 39 live - full term 8lbs 6oz Female epidural Darek Hamlin 06/08/23 6 molar Delivery Date: 07/14/22 Last Updated by: Marcela Patrick RN [facility] d/t stuck in canal & mec aspirate - NICU x6days Delivery Date: 06/08/23 Last Updated by: Marcela Patrick RN D&C @ about 8weeks HPI 38wk ob *trying for Details: JERMAIN GERARD is a 24 year old who presents for routine OB visit. OB Visit NATAN Calculator Estimated Delivery Date Method Current WG Current Estimate 10/23/24 LMP (Certain) 38w 2d Other Estimates 10/25/24 Ultrasound #1 38w 0d Expected Delivery Route/Plan wants to try patient counseled regarding risks/benefits of trial of labor versus repeat . ACOG/uptodate education given to patient. 65 % likelihood of success per calculator TOLAC consent form signed: [] Specific Issue/Plans Covid status: [] Flu vaccine: [] Tdap vaccine: declined Rhogam: NA LARC form signed: yes Problem list reviewed and updated with the most current plan of care details and appropriate orders placed. Relevant counseling for the gestational age provided. Continue routine care and follow up unless otherwise noted in visit notes/problem list details Initial Weight: 192 lb Date -?-?-?-?-?-?-?-?-?-?-?-?- EGA Weight BP Urine Prot -?-?-?-?-?-?-?--?-?-?-?-?- Glucose FHR FuHt Pres Dilation -?-?-?-?-?-?-?-?-?-?-?-?- Effaced St Visit Note 03/16/24 -?-?-?-?-?-?-?-?-?-?-?-?- 8w 3d 192 lb 6 oz (+6 oz) 119/79 -?-?-?-?-?-?-?-?-?-?-?-?- 165 -?-?-?-?-?-?-?-?-?-?-?-?- JV- CRL consiste nt with first ultrasound. desires NIPT. will return in 2 weeks to do all labs. 04/13/24 -?-?-?-?-?-?-?-?-?-?-?-?- 12w 3d 193 lb 6 oz (+1 lb 6 oz) 118/84 Negative -?-?-?-?-?-?-?-?-?-?-?-?- Negative 168 -?-?-?-?-?-?-?-?-?-?-?-?- KW-no vb/zuri JAIN ordered. 05/09/24 -?-?-?-?-?-?-?-?-?-?-?-?- 16w 1d 196 lb 6 oz (+4 lb 6 oz) 112/76 Negative -?-?-?-?-?-?-?-?-?-?-?-?- Negative 152 -?-?-?-?-?-?-?-?-?-?-?-?- MH-No VB. Nausea persists but not daily. 06/08/24 -?-?-?-?-?-?-?-?-?-?-?-?- 20w 3d 204 lb 2 oz (+12 lb 2 oz) 107/74 Negative -?-?-?-?-?-?-?-?-?-?-?-?- Negative 145 -?-?-?-?-?-?-?-?-?-?-?-?- SM- no vb lof go od fm nor euglar ctx 07/04/24 -?-?-?-?-?-?-?-?-?-?-?-?- 24w 1d 209 lb 8 oz (+17 lb 8 oz) 110/76 Negative -?-?-?-?-?-?-?-?-?-?-?-?- Negative 137 25 -?-?-?-?-?-?-?-?-?-?-?-?- JV- no lof, vagi nal bleeding, and ++ fm. glucola next visit. declines tdap. 07/30/24 -?-?-?-?-?-?-?-?-?-?-?-?- 27w 6d 216 lb (+24 lb) 118/80 Negative -?-?-?-?-?-?-?-?-?-?-?-?- Negative 151 27 -?-?-?-?-?-?-?-?-?-?-?-?- MH-No VB, LOF.Go od Fm. 28 wk labs pending. Larc 08/15/24 -?-?-?-?-?-?-?-?-?-?-?-?- 30w 1d 214 lb 6 oz (+22 lb 6 oz) 109/77 Trace -?-?-?-?-?-?-?-?-?-?-?-?- Negative 160 31 -?-?-?-?-?-?-?-?-?-?-?-?- KW- no vb/lof/ct x. good fm desires and would like to go to 41 weeks gestation. C/S records requested but according to pt was due to malposition at [place]. Pushed for 2 hours and was OP. 08/28/24 -?-?-?-?-?-?-?-?-?-?-?-?- 32w 0d 218 lb 4 oz (+26 lb 4 oz) 115/78 Negative -?-?-?-?-?-?-?-?-?-?-?-?- Negative 147 33 -?-?-?-?-?-?-?-?-?-?-?-?- MH-No VB, LOF. G ood FM. 09/11/24 -?-?-?-?-?-?-?-?-?-?-?-?- 34w 0d 218 lb 1 oz (+26 lb 1 oz) 118/76 Negative -?-?-?-?-?-?-?-?-?-?-?-?- Negative 135 34 -?-?-?-?-?-?-?-?-?-?-?-?- JV- discussed TO LAC and risks vs benefits. does not appear that she was a failure to progress. was taken to surgery after 1.5 hrs of pushing and developed tachycardia. both mom and baby ended up in ICU after for treatment of sepsis. understands risks. will bring back tolac consent to next visit. 09/24/24 -?-?-?-?-?-?-?-?-?-?-?-?- 35w 6d 217 lb 5 oz (+25 lb 5 oz) 119/81 Negative -?-?-?-?-?-?-?-?-?-?-?-?- Negative 130 36 Cephalic 1 -?-?-?-?-?-?-?-?-?-?-?-?- 30 -3 KW- no vb/ lof/ctx. good fm. GSB today. no concerns. consent returned 10/02/24 -?-?-?-?-?-?-?-?-?-?-?-?- 37w 0d 222 lb 4 oz (+30 lb 4 oz) 122/84 Negative -?-?-?-?-?-?-?-?-?-?-?-?- Negative 160 37 Cephalic 1 .5 -?-?-?-?-?-?-?-?-?-?-?-?- 30 -2 SM- no vb lof good fm n oregular ctx 10/11/24 -?-?-?-?-?-?-?-?-?-?-?-?- 38w 2d 219 lb 9 oz (+27 lb 9 oz) 112/79 Negative -?-?-?-?-?-?-?-?-?-?-?-?- Negative 150 39 Cephalic 3 -?-?-?-?-?-?-?-?-?-?-?-?- 40 -2 KW- no vb/ lof/ctx. good fm. preferences reviewed. minimal intervention. ACOG First Trimester First Trimester: Discussed Second Trimester Second Trimester: Signs and Symptoms of Labor Third Trimester Third Trimester: Labor support person(s), Immediate Larc, Signs and Symptoms of Preeclampsia, Infant Feeding No and Family Medical Leave or Disability Forms ROS Const Reports system reviewed and no additional complaints, except as documented Eyes Reports system reviewed and no additional complaints, except as documented ENT Reports system reviewed and no additional complaints, except as documented Card Reports system reviewed and no additional complaints, except as documented Resp Reports system reviewed and no additional complaints, except as documented GI Reports system reviewed and no additional complaints, except as documented, Denies nausea and Denies vomiting Reports system reviewed and no additional complaints, except as documented Musc Reports system reviewed and no additional complaints, except as documented Skin/Breast Reports system reviewed and no additional complaints, except as documented Neuro Yes system reviewed and no additional complaints, except as documented Psych Reports system reviewed and no additional complaints, except as documented Endo Reports system reviewed and no additional complaints, except as documented Nixon/Lymph Reports system reviewed and no additional complaints, except as documented Aller/Immun Reports system reviewed and no additional complaints, except as documented Exam Const General: cooperative, healthy appearing and no acute distress Orientation: alert, awake and oriented x3 Neck Neck: normal visual inspection and full ROM Resp Effort & Inspection: normal respiratory effort, able to speak in complete sentences and symmetric chest movement GI Inspection: normal to inspection Palpation: soft and other Other: gravid Skin General: no rashes or lesions noted Neuro General: patient alert, patient awake and patient oriented x3 Cognition: normal cognition Speech: speech normal Gait: normal gait Motor: muscle tone normal throughout Extrem General: normal to inspection and full ROM Psych Appearance: grossly normal Mental Status: mental status grossly normal Mood: congruent mood Affect: normal affect Speech and Movement: speech and movement normal Attitude: cooperative Thought Process: normal Thought Content: normal Judgment: judgment good Results POC Urinalysis 2 Dip (Clinic) Office Urine Glucose Negative Last Edit by Rosalie Arteaga on 10/11/24 08:02 Office Urine Protein Negative Last Edit by Rosalie Arteaga on 10/11/24 08:02 Coding Level of Care Code OB Routine Diagnoses Obesity affecting in second trimester, unspecified obesity type O99.212 Obesity type affecting : unspecified obesity Trimester: second trimester History of delivery, currently O34.219 History of molar Z87.59 Supervision of high risk in third trimester O09.93 Trimester: third trimester 38 weeks gestation of Z3A.38 Weeks of gestation: 38 weeks History of asthma Z87.09 Assessment and Plan Assessment and Plan (1) Obesity affecting : Status: Acute Qualifiers: Obesity type affecting : unspecified obesity Trimester: second trimester Qualified Code(s): O99.212 - Obesity complicating , second trimester Comment: BMI 30.1, HgBA1C ordered w/NOB (2) History of delivery, currently : Status: Acute Comment: x1 (2022), Desires , c/s 10/30 JV. (3) History of molar : Status: Acute Comment: June 2023- after delivery draw hcg to zero (4) Supervision of high-risk : Status: Acute Qualifiers: Trimester: third trimester Qualified Code(s): O09.93 - Supervision of high risk , unspecified, third trimester Comment: PRR, , NATAN 10/23/24, girl (name secret) PC: Bora, : Boubacar (5) : Status: Acute Qualifiers: Weeks of gestation: 38 weeks Qualified Code(s): Z3A.38 - 38 weeks gestation of Comment: gbs neg, NIPT low risk (6) History of asthma: Status: Acute Comment: Childhood Orders: Orders POC Urinalysis 2 Dip (Clinic) Today Plan Details Additional Comments: ACOG trimester education reviewed and updated. see problem list details for updated plan management information and see below for orders placed at this visit. GA appropriate handout given. Clinical Quality Measures Falls Risk Screening/Assistive Devices Have you fallen in the past year?: No 10/11/24 0815 <Electronically signed by Jorge gutierrez CNM> Date _ Jorge Valente CNM Cosigner Signature: Date (if applicable) CC: ~ [facility] Work Phone: Reason for referral (narrative)No reason for referral information availableBlGood [facility] Work Phone: Summary Purpose Family History No Family History Records Found Relationship Condition Age at Onset Recorded Date/T danelle mother Asthma Unknown grandfather Chronic obstructive pulmonary disease Unk nown Diabetes mellitus Unknown Advance Directives No Advanced Directives Records Found Advance Directive Response Recorded Date/ Time Living Will No June 17, 2023 8 :25pm Power of Grease Cup Filler No June 17, 2023 8:25pm Chief Complaint and Reason for Visit Chief Complaint BLEEDING Chief Complaint Admit Date New OB, LMP 01/16, NATAN 10/23/24 March 16, 2024 1:11pm 12wk OB April 13, 2024 10:0 2am 16 wk ob May 09, 2024 8:26 am 20 wk ob June 08, 2024 11:45a m 24 wk ob July 04, 2024 10:46 am Reason for Visit Admit Date History of asthma March 16, 2024 1 :11pm History of delivery, currently March 16, 2024 1:11pm History of molar March 16, 2024 1:11pm Obesity affecting March 1:11pm March 16, 2024 1 :11pm Supervision of high-risk Febru yaya 2024 1:11pm History of asthma April 13, 2024 10:0 2am History of delivery, currently April 13, 2024 10:02am History of molar April 13 10:02am Obesity affecting April 13, 10:02am April 13, 2024 10:0 2am Supervision of high-risk April 13, 2024 10:02am History of asthma May 09, 2024 8:26 am History of delivery, currently May 09, 2024 8:26am History of molar May 09 8:26am Obesity affecting May 09, 8:26am May 09, 2024 8:26 am Supervision of high-risk May 09, 2024 8:26am History of asthma June 08, 2024 11:45a m History of delivery, currently June 08, 2024 11:45am History of molar June 08, 2024 11:45am Obesity affecting June 08 11:45am June 08, 2024 11:45a m Supervision of high-risk June 082024 11:45am History of asthma July 04, 2024 10:46 am History of delivery, currently July 04, 2024 10:46am History of molar July 04 10:46am Obesity affecting July 04 10:46am July 04, 2024 10:46 am Supervision of high-risk June 082024 10:46am Chief Complaint Admit Date 12wk OB April 13, 2024 10:0 2am 16 wk ob May 09, 2024 8:26 am 20 wk ob June 08, 2024 11:45a m 24 wk ob July 04, 2024 10:46 am 28wk ob/glucose July 30, 2024 3:21 pm Reason for Visit Admit Date History of asthma April 13, 2024 10:0 2am History of delivery, currently April 13, 2024 10:02am History of molar April 13 10:02am Obesity affecting April 13 10:02am April 13, 2024 10:0 2am Supervision of high-risk April 13, 2024 10:02am History of asthma May 09, 2024 8:26 am History of delivery, currently May 09, 2024 8:26am History of molar May 09 8:26am Obesity affecting May 09 8:26am May 09, 2024 8:26 am Supervision of high-risk May 09, 2024 8:26am History of asthma June 08, 2024 11:45a m History of delivery, currently June 08, 2024 11:45am History of molar June 08, 2024 11:45am Obesity affecting June 08 11:45am June 08, 2024 11:45a m Supervision of high-risk June 082024 11:45am History of asthma July 04, 2024 10:46 am History of delivery, currently July 04, 2024 10:46am History of molar July 04 10:46am Obesity affecting July 04 10:46am July 04, 2024 10:46 am Supervision of high-risk June 082024 10:46am History of asthma July 30, 2024 3:21 pm History of delivery, currently July 30, 2024 3:21pm History of molar July 30 3:21pm Obesity affecting July 30 3:21pm July 30, 2024 3:21 pm Supervision of high-risk July 30, 2024 3:21pm Chief Complaint Admit Date 16 wk ob May 09, 2024 8:26 am 20 wk ob June 08, 2024 11:45a m 24 wk ob July 04, 2024 10:46 am 28wk ob/glucose July 30, 2024 3:21 pm 30wk ob August 15, 2024 11:18 am Reason for Visit Admit Date History of asthma May 09, 2024 8:26 am History of delivery, currently May 09, 2024 8:26am History of molar May 09 8:26am Obesity affecting May 09 8:26am May 09, 2024 8:26 am Supervision of high-risk May 09, 2024 8:26am History of asthma June 08, 2024 11:45a m History of delivery, currently June 08, 2024 11:45am History of molar June 08, 2024 11:45am Obesity affecting June 08 11:45am June 08, 2024 11:45a m Supervision of high-risk June 082024 11:45am History of asthma July 04, 2024 10:46 am History of delivery, currently July 04, 2024 10:46am History of molar July 04 10:46am Obesity affecting July 04 10:46am July 04, 2024 10:46 am Supervision of high-risk June 082024 10:46am History of asthma July 30, 2024 3:21 pm History of delivery, currently July 30, 2024 3:21pm History of molar July 30 3:21pm Obesity affecting July 30 025 3:21pm July 30, 2024 3:21 pm Supervision of high-risk July 30, 2024 3:21pm History of asthma August 15, 2024 11:18 am History of delivery, currently August 15, 2024 11:18am History of molar August 15 11:18am Obesity affecting August 15 11:18am August 15, 2024 11:18 am Supervision of high-risk August 15, 2024 11:18am Chief Complaint Admit Date 16 wk ob May 09, 2024 8:26 am 20 wk ob June 08, 2024 11:45a m 24 wk ob July 04, 2024 10:46 am 28wk ob/glucose July 30, 2024 3:21 pm 30wk ob August 15, 2024 11:18 am 32wk ob August 28, 2024 3:02 pm Reason for Visit Admit Date History of asthma May 09, 2024 8:26 am History of delivery, currently May 09, 2024 8:26am History of molar May 09 8:26am Obesity affecting May 09, 025 8:26am May 09, 2024 8:26 am Supervision of high-risk May 09, 2024 8:26am History of asthma June 08, 2024 11:45a m History of delivery, currently June 08, 2024 11:45am History of molar June 08, 2024 11:45am Obesity affecting June 08 11:45am June 08, 2024 11:45a m Supervision of high-risk June 082024 11:45am History of asthma July 04, 2024 10:46 am History of delivery, currently July 04, 2024 10:46am History of molar July 04 10:46am Obesity affecting July 04 10:46am July 04, 2024 10:46 am Supervision of high-risk June 082024 10:46am History of asthma July 30, 2024 3:21 pm History of delivery, currently July 30, 2024 3:21pm History of molar July 30 3:21pm Obesity affecting July 30, 2 025 3:21pm July 30, 2024 3:21 pm Supervision of high-risk July 30, 2024 3:21pm History of asthma August 15, 2024 11:18 am History of delivery, currently August 15, 2024 11:18am History of molar August 15 11:18am Obesity affecting August 15 11:18am August 15, 2024 11:18 am Supervision of high-risk August 15, 2024 11:18am History of asthma August 28, 2024 3:02 pm History of delivery, currently August 28, 2024 3:02pm History of molar August 28 3:02pm Obesity affecting August 28, 2 025 3:02pm August 28, 2024 3:02 pm Supervision of high-risk August 28, 2024 3:02pm Chief Complaint Admit Date 20 wk ob June 08, 2024 11:45a m 24 wk ob July 04, 2024 10:46 am 28wk ob/glucose July 30, 2024 3:21 pm 30wk ob August 15, 2024 11:18 am 32wk ob August 28, 2024 3:02 pm 34wk ob September 11, 2024 9:2 7am Reason for Visit Admit Date History of asthma June 08, 2024 11:45a m History of delivery, currently June 08, 2024 11:45am History of molar June 08, 2024 11:45am Obesity affecting June 08 11:45am June 08, 2024 11:45a m Supervision of high-risk June 082024 11:45am History of asthma July 04, 2024 10:46 am History of delivery, currently July 04, 2024 10:46am History of molar July 04 10:46am Obesity affecting July 04 10:46am July 04, 2024 10:46 am Supervision of high-risk June 082024 10:46am History of asthma July 30, 2024 3:21 pm History of delivery, currently July 30, 2024 3:21pm History of molar July 30 3:21pm Obesity affecting July 30, 2 025 3:21pm July 30, 2024 3:21 pm Supervision of high-risk July 30, 2024 3:21pm History of asthma August 15, 2024 11:18 am History of delivery, currently August 15, 2024 11:18am History of molar August 15 11:18am Obesity affecting August 15 11:18am August 15, 2024 11:18 am Supervision of high-risk August 15, 2024 11:18am History of asthma August 28, 2024 3:02 pm History of delivery, currently August 28, 2024 3:02pm History of molar August 28 3:02pm Obesity affecting August 28, 2 025 3:02pm August 28, 2024 3:02 pm Supervision of high-risk August 28, 2024 3:02pm History of asthma September 11, 2024 9:2 7am History of delivery, currently September 11, 2024 9:27am History of molar September 11, 2 025 9:27am Obesity affecting September 11, 2024 9:27am September 11, 2024 9:2 7am Supervision of high-risk Augus t 2024 9:27am Chief Complaint Admit Date 20 wk ob June 08, 2024 11:45a m 24 wk ob July 04, 2024 10:46 am 28wk ob/glucose July 30, 2024 3:21 pm 30wk ob August 15, 2024 11:18 am 32wk ob August 28, 2024 3:02 pm 34wk ob September 11, 2024 9:2 7am 36 wk ob September 24, 2024 2: 03pm Reason for Visit Admit Date History of asthma June 08, 2024 11:45a m History of delivery, currently June 08, 2024 11:45am History of molar June 08, 2024 11:45am Obesity affecting June 08 11:45am June 08, 2024 11:45a m Supervision of high-risk June 082024 11:45am History of asthma July 04, 2024 10:46 am History of delivery, currently July 04, 2024 10:46am History of molar July 04 10:46am Obesity affecting July 04 10:46am July 04, 2024 10:46 am Supervision of high-risk June 082024 10:46am History of asthma July 30, 2024 3:21 pm History of delivery, currently July 30, 2024 3:21pm History of molar July 30 3:21pm Obesity affecting July 30, 3:21pm July 30, 2024 3:21 pm Supervision of high-risk July 30, 2024 3:21pm History of asthma August 15, 2024 11:18 am History of delivery, currently August 15, 2024 11:18am History of molar August 15 11:18am Obesity affecting August 15 11:18am August 15, 2024 11:18 am Supervision of high-risk August 15, 2024 11:18am History of asthma August 28, 2024 3:02 pm History of delivery, currently August 28, 2024 3:02pm History of molar August 28 3:02pm Obesity affecting August 28, 2 025 3:02pm August 28, 2024 3:02 pm Supervision of high-risk August 28, 2024 3:02pm History of asthma September 11, 2024 9:2 7am History of delivery, currently September 11, 2024 9:27am History of molar September 11, 025 9:27am Obesity affecting September 11, 2024 9:27am September 11, 2024 9:2 7am Supervision of high-risk Augus t 2024 9:27am History of asthma September 24, 2024 2: 03pm History of delivery, currently September 24, 2024 2:03pm History of molar September 24, 2024 2:03pm Obesity affecting September 24, 2024 2:03pm September 24, 2024 2: 03pm Supervision of high-risk Augus t 2024 2:03pm Chief Complaint Admit Date 20 wk ob June 08, 2024 11:45a m 24 wk ob July 04, 2024 10:46 am 28wk ob/glucose July 30, 2024 3:21 pm 30wk ob August 15, 2024 11:18 am 32wk ob August 28, 2024 3:02 pm 34wk ob September 11, 2024 9:2 7am 36 wk ob September 24, 2024 2: 03pm 37wk ob October 02, 2024 2: 37pm Reason for Visit Admit Date History of asthma June 08, 2024 11:45a m History of delivery, currently June 08, 2024 11:45am History of molar June 08, 2024 11:45am Obesity affecting June 08 11:45am June 08, 2024 11:45a m Supervision of high-risk June 082024 11:45am History of asthma July 04, 2024 10:46 am History of delivery, currently July 04, 2024 10:46am History of molar July 04 10:46am Obesity affecting July 04 10:46am July 04, 2024 10:46 am Supervision of high-risk June 082024 10:46am History of asthma July 30, 2024 3:21 pm History of delivery, currently July 30, 2024 3:21pm History of molar July 30 3:21pm Obesity affecting July 30, 2 025 3:21pm July 30, 2024 3:21 pm Supervision of high-risk July 30, 2024 3:21pm History of asthma August 15, 2024 11:18 am History of delivery, currently August 15, 2024 11:18am History of molar August 15 11:18am Obesity affecting August 15 11:18am August 15, 2024 11:18 am Supervision of high-risk August 15, 2024 11:18am History of asthma August 28, 2024 3:02 pm History of delivery, currently August 28, 2024 3:02pm History of molar August 28 3:02pm Obesity affecting August 28, 2 025 3:02pm August 28, 2024 3:02 pm Supervision of high-risk August 28, 2024 3:02pm History of asthma September 11, 2024 9:2 7am History of delivery, currently September 11, 2024 9:27am History of molar September 11, 2 025 9:27am Obesity affecting September 11, 2024 9:27am September 11, 2024 9:2 7am Supervision of high-risk Augus t 2024 9:27am History of asthma September 24, 2024 2: 03pm History of delivery, currently September 24, 2024 2:03pm History of molar September 24, 2024 2:03pm Obesity affecting September 24, 2024 2:03pm September 24, 2024 2: 03pm Supervision of high-risk Augus t 2024 2:03pm History of asthma October 02, 2024 2: 37pm History of delivery, currently October 02, 2024 2:37pm History of molar October 02, 2024 2:37pm Obesity affecting October 02, 2024 2:37pm October 02, 2024 2: 37pm Supervision of high-risk Augus t 2024 2:37pm Chief Complaint Admit Date 24 wk ob July 04, 2024 10:46 am 28wk ob/glucose July 30, 2024 3:21 pm 30wk ob August 15, 2024 11:18 am 32wk ob August 28, 2024 3:02 pm 34wk ob September 11, 2024 9:2 7am 36 wk ob September 24, 2024 2: 03pm 37wk ob October 02, 2024 2: 37pm 38wk ob *trying for October 11, 2024 7:51am Reason for Visit Admit Date History of asthma July 04, 2024 10:46 am History of delivery, currently July 04, 2024 10:46am History of molar July 04 10:46am Obesity affecting July 04 10:46am July 04, 2024 10:46 am Supervision of high-risk June 082024 10:46am History of asthma July 30, 2024 3:21 pm History of delivery, currently July 30, 2024 3:21pm History of molar July 30 3:21pm Obesity affecting July 30, 2 025 3:21pm July 30, 2024 3:21 pm Supervision of high-risk July 30, 2024 3:21pm History of asthma August 15, 2024 11:18 am History of delivery, currently August 15, 2024 11:18am History of molar August 15 11:18am Obesity affecting August 15 11:18am August 15, 2024 11:18 am Supervision of high-risk August 15, 2024 11:18am History of asthma August 28, 2024 3:02 pm History of delivery, currently August 28, 2024 3:02pm History of molar August 28 3:02pm Obesity affecting August 28, 2 025 3:02pm August 28, 2024 3:02 pm Supervision of high-risk August 28, 2024 3:02pm History of asthma September 11, 2024 9:2 7am History of delivery, currently September 11, 2024 9:27am History of molar September 11, 2 025 9:27am Obesity affecting September 11, 2024 9:27am September 11, 2024 9:2 7am Supervision of high-risk Augus t 2024 9:27am History of asthma September 24, 2024 2: 03pm History of delivery, currently September 24, 2024 2:03pm History of molar September 24, 2024 2:03pm Obesity affecting September 24, 2024 2:03pm September 24, 2024 2: 03pm Supervision of high-risk Augus t 2024 2:03pm History of asthma October 02, 2024 2: 37pm History of delivery, currently October 02, 2024 2:37pm History of molar October 02, 2024 2:37pm Obesity affecting October 02, 2024 2:37pm October 02, 2024 2: 37pm Supervision of high-risk Augus t 2024 2:37pm History of asthma October 11, 2024 7:51am History of delivery, currently October 11, 2024 7:51am History of molar October 7:51am Obesity affecting October 7:51am October 11, 2024 7:51am Supervision of high-risk Lizae 2024 7:51am Chief Complaint Admit Date 24 wk ob July 04, 2024 10:46 am 28wk ob/glucose July 30, 2024 3:21 pm 30wk ob August 15, 2024 11:18 am 32wk ob August 28, 2024 3:02 pm 34wk ob September 11, 2024 9:2 7am 36 wk ob September 24, 2024 2: 03pm 37wk ob October 02, 2024 2: 37pm 38wk ob *trying for October 11, 2024 7:51am 39wk ob October 16, 2024 1:19pm Reason for Visit Admit Date History of asthma July 04, 2024 10:46 am History of delivery, currently July 04, 2024 10:46am History of molar July 04 10:46am Obesity affecting July 04 10:46am July 04, 2024 10:46 am Supervision of high-risk June 082024 10:46am History of asthma July 30, 2024 3:21 pm History of delivery, currently July 30, 2024 3:21pm History of molar July 30 3:21pm Obesity affecting July 30, 2 025 3:21pm July 30, 2024 3:21 pm Supervision of high-risk July 30, 2024 3:21pm History of asthma August 15, 2024 11:18 am History of delivery, currently August 15, 2024 11:18am History of molar August 15 11:18am Obesity affecting August 15 11:18am August 15, 2024 11:18 am Supervision of high-risk August 15, 2024 11:18am History of asthma August 28, 2024 3:02 pm History of delivery, currently August 28, 2024 3:02pm History of molar August 28 3:02pm Obesity affecting August 28, 2 025 3:02pm August 28, 2024 3:02 pm Supervision of high-risk August 28, 2024 3:02pm History of asthma September 11, 2024 9:2 7am History of delivery, currently September 11, 2024 9:27am History of molar September 11, 2 025 9:27am Obesity affecting September 11, 2024 9:27am September 11, 2024 9:2 7am Supervision of high-risk Augus t 2024 9:27am History of asthma September 24, 2024 2: 03pm History of delivery, currently September 24, 2024 2:03pm History of molar September 24, 2024 2:03pm Obesity affecting September 24, 2024 2:03pm September 24, 2024 2: 03pm Supervision of high-risk Augus t 2024 2:03pm History of asthma October 02, 2024 2: 37pm History of delivery, currently October 02, 2024 2:37pm History of molar October 02, 2024 2:37pm Obesity affecting October 02, 2024 2:37pm October 02, 2024 2: 37pm Supervision of high-risk Augus t 2024 2:37pm History of asthma October 11, 2024 7:51am History of delivery, currently October 11, 2024 7:51am History of molar October 7:51am Obesity affecting October 7:51am October 11, 2024 7:51am Supervision of high-risk [facility] 2024 7:51am History of asthma October 16, 2024 1:19pm History of delivery, currently October 16, 2024 1:19pm History of molar October 1:19pm Obesity affecting October 1:19pm October 16, 2024 1:19pm Supervision of high-risk [facility] 2024 1:19pm Additional Source Comments INFORMATION SOURCE (unrecogn ized section and content) DATE CREATED AUTHOR 07/31/2021 [facility] DATE CREATED AUTHOR AUTHOR'S ORGANIZ ATION 08/13/2022 [facility] (ME) DATE CREATED AUTHOR AUTHOR'S ORGANIZ ATION 05/28/2024 [facility] DATE CREATED AUTHOR AUTHOR'S ORGANIZ ATION 10/18/2024 [facility] Care Team (unrecognized sect ion and content) Care Team Personnel Name: PHYSICIAN, NONE Position: Physician Member Role: Primary Care Physician Care Team Related Persons Name: BOUBACAR GERARD Care Team Personnel Name: PHYSICIAN, NONE Position: Physician Member Role: Primary Care Physician Care Team Related Persons Name: BOUBACAR GERARD Care Team Personnel Name: PHYSICIAN, NONE Position: Physician Member Role: Primary Care Physician Care Team Related Persons Name: BOUBACAR GERARD Patient Care team informatio n (unrecognized section and content) Team Status: Active Member Role Status Dates No Primary Care Physician Primary Care Provider Active Team Status: Inactive Member Role Status Dates No Primary Care Physician Primary Care Provider Active Dr. Fernando Shirley MD Emergency Provider Active Team Status: Inactive Member Role Status Dates No Primary Care Physician Primary Care Provider Active Start: March 16, 2024 End: March 16, 2024 No Primary Care Physician Referring Provider Active Start: March 16, 2024 End: March 16, 2024 Dr. Holly Lindsey DO Attending Provider Activ e Start: March 16, 2024 End: March 16, 2024 Team Status: Inactive Member Role Status Dates No Primary Care Physician Primary Care Provider Active Start: March 16, 2024 End: March 16, 2024 Dr. Holly Lindsey DO Attending Provider Activ e Start: March 16, 2024 End: March 16, 2024 Dr. Holly Lindsey DO Referring Provider Activ e Start: March 16, 2024 End: March 16, 2024 Team Status: Inactive Member Role Status Dates No Primary Care Physician Primary Care Provider Active Start: March 29, 2024 End: March 29, 2024 Dr. Laya Pugh MD Attending Provider Active Start: March 29, 2024 End: March 29, 2024 Dr. Laya Pugh MD Referring Provider Active Start: March 29, 2024 End: March 29, 2024 Team Status: Inactive Member Role Status Dates No Primary Care Physician Primary Care Provider Active Start: April 13, 2024 End: April 13, 2024 No Primary Care Physician Referring Provider Active Start: April 13, 2024 End: April 13, 2024 Jorge Valente CNM Attending Provider Active S tart: April 13, 2024 End: April 13, 2024 Team Status: Inactive Member Role Status Dates No Primary Care Physician Primary Care Provider Active Start: May 09, 2024 End: May 09, 2024 No Primary Care Physician Referring Provider Active Start: May 09, 2024 End: May 09, 2024 Linh Obregon NP, CARD SERVICES SPECIALIST-C Attending Provider Active Start: May 09, 2024 End: May 09, 2024 Team Status: Inactive Member Role Status Dates No Primary Care Physician Primary Care Provider Active Start: June 08, 2024 End: June 08, 2024 No Primary Care Physician Referring Provider Active Start: June 08, 2024 End: June 08, 2024 Dr. Laya Pugh MD Attending Provider Active Start: June 08, 2024 End: June 08, 2024 Team Status: Inactive Member Role Status Dates No Primary Care Physician Primary Care Provider Active Start: July 04, 2024 End: July 04, 2024 No Primary Care Physician Referring Provider Active Start: July 04, 2024 End: July 04, 2024 Dr. Holly Lindsey DO Attending Provider Activ e Start: July 04, 2024 End: July 04, 2024 Team Status: Inactive Member Role Status Dates No Primary Care Physician Primary Care Provider Active Start: July 30, 2024 End: July 30, 2024 No Primary Care Physician Referring Provider Active Start: July 30, 2024 End: July 30, 2024 Linh Obregon NP, NP-C Attending Provider Active Start: July 30, 2024 End: July 30, 2024 Team Status: Active Member Role Status Dates No Primary Care Physician Primary Care Provider Active Start: July 30, 2024 Dr. Laya Pugh MD Attending Provider Active Start: July 30, 2024 Dr. Laya Pugh MD Referring Provider Active Start: July 30, 2024 Team Status: Inactive Member Role Status Dates No Primary Care Physician Primary Care Provider Active Start: July 30, 2024 End: July 30, 2024 Dr. Laya Pugh MD Attending Provider Active Start: July 30, 2024 End: July 30, 2024 Dr. Laya Pugh MD Referring Provider Active Start: July 30, 2024 End: July 30, 2024 Team Status: Active Member Role/Relationship Status Dates No Primary Care Physician Primary Care Provider Active Team Status: Inactive Member Role/Relationship Status Dates No Primary Care Physician Primary Care Provider Active Start: May 09, 2024 End: May 09, 2024 No Primary Care Physician Referring Provider Active Start: May 09, 2024 End: May 09, 2024 AIDAN Beaver NPC Attending Provider Active Start: May 09, 2024 End: May 09, 2024 Team Status: Inactive Member Role/Relationship Status Dates No Primary Care Physician Primary Care Provider Active Start: June 08, 2024 End: June 08, 2024 No Primary Care Physician Referring Provider Active Start: June 08, 2024 End: June 08, 2024 Dr. Laya Pugh MD Attending Provider Active Start: June 08, 2024 End: June 08, 2024 Team Status: Inactive Member Role/Relationship Status Dates No Primary Care Physician Primary Care Provider Active Start: July 04, 2024 End: July 04, 2024 No Primary Care Physician Referring Provider Active Start: July 04, 2024 End: July 04, 2024 Dr. Holly Lindsey DO Attending Provider Activ e Start: July 04, 2024 End: July 04, 2024 Team Status: Inactive Member Role/Relationship Status Dates No Primary Care Physician Primary Care Provider Active Start: July 30, 2024 End: July 30, 2024 No Primary Care Physician Referring Provider Active Start: July 30, 2024 End: July 30, 2024 Linh Obregon NP CARD SERVICES SPECIALIST-C Attending Provider Active Start: July 30, 2024 End: July 30, 2024 Team Status: Inactive Member Role/Relationship Status Dates No Primary Care Physician Primary Care Provider Active Start: July 30, 2024 End: July 30, 2024 Dr. Laya Pugh MD Attending Provider Active Start: July 30, 2024 End: July 30, 2024 Dr. Laya Pugh MD Referring Provider Active Start: July 30, 2024 End: July 30, 2024 Team Status: Inactive Member Role/Relationship Status Dates No Primary Care Physician Primary Care Provider Active Start: August 15, 2024 End: August 15, 2024 No Primary Care Physician Referring Provider Active Start: August 15, 2024 End: August 15, 2024 Jorge Valente CNM Attending Provider Active S tart: August 15, 2024 End: August 15, 2024 Team Status: Inactive Member Role/Relationship Status Dates No Primary Care Physician Primary Care Provider Active Start: August 28, 2024 End: August 28, 2024 No Primary Care Physician Referring Provider Active Start: August 28, 2024 End: August 28, 2024 Linh Obregon NP CARD SERVICES SPECIALIST-C Attending Provider Active Start: August 28, 2024 End: August 28, 2024 Team Status: Inactive Member Role/Relationship Status Dates No Primary Care Physician Primary Care Provider Active Start: June 08, 2024 End: June 08, 2024 No Primary Care Physician Referring Provider Active Start: June 08, 2024 End: June 08, 2024 Dr. Laya Pugh MD Attending Provider Active Start: June 08, 2024 End: June 08, 2024 Team Status: Inactive Member Role/Relationship Status Dates No Primary Care Physician Primary Care Provider Active Start: July 04, 2024 End: July 04, 2024 No Primary Care Physician Referring Provider Active Start: July 04, 2024 End: July 04, 2024 Dr. Holly Lindsey , Attending Provider Activ e Start: July 04, 2024 End: July 04, 2024 Team Status: Inactive Member Role/Relationship Status Dates No Primary Care Physician Primary Care Provider Active Start: July 30, 2024 End: July 30, 2024 No Primary Care Physician Referring Provider Active Start: July 30, 2024 End: July 30, 2024 Linh Obregon NP, CARD SERVICES SPECIALIST-C Attending Provider Active Start: July 30, 2024 End: July 30, 2024 Team Status: Inactive Member Role/Relationship Status Dates No Primary Care Physician Primary Care Provider Active Start: July 30, 2024 End: July 30, 2024 Dr. Laya Pugh MD Attending Provider Active Start: July 30, 2024 End: July 30, 2024 Dr. Laya Pugh MD Referring Provider Active Start: July 30, 2024 End: July 30, 2024 Team Status: Inactive Member Role/Relationship Status Dates No Primary Care Physician Primary Care Provider Active Start: August 15, 2024 End: August 15, 2024 No Primary Care Physician Referring Provider Active Start: August 15, 2024 End: August 15, 2024 Jorge Valente CNM Attending Provider Active S tart: August 15, 2024 End: August 15, 2024 Team Status: Inactive Member Role/Relationship Status Dates No Primary Care Physician Primary Care Provider Active Start: August 28, 2024 End: August 28, 2024 No Primary Care Physician Referring Provider Active Start: August 28, 2024 End: August 28, 2024 Linh Obregon NP CARD SERVICES SPECIALIST-C Attending Provider Active Start: August 28, 2024 End: August 28, 2024 Team Status: Inactive Member Role/Relationship Status Dates No Primary Care Physician Primary Care Provider Active Start: September 11, 2024 End: September 11, 2024 No Primary Care Physician Referring Provider Active Start: September 11, 2024 End: September 11, 2024 Dr. Holly Lindsey DO Attending Provider Activ e Start: September 11, 2024 End: September 11, 2024 Team Status: Inactive Member Role/Relationship Status Dates No Primary Care Physician Primary Care Provider Active Start: September 24, 2024 End: September 24, 2024 No Primary Care Physician Referring Provider Active Start: September 24, 2024 End: September 24, 2024 Jorge Valente CNM Attending Provider Active S tart: September 24, 2024 End: September 24, 2024 Team Status: Inactive Member Role/Relationship Status Dates No Primary Care Physician Primary Care Provider Active Start: September 24, 2024 End: September 24, 2024 Jorge Valente CNM Attending Provider Active S tart: September 24, 2024 End: September 24, 2024 Jorge Valente CNM Referring Provider Active S tart: September 24, 2024 End: September 24, 2024 Team Status: Inactive Member Role/Relationship Status Dates No Primary Care Physician Primary Care Provider Active Start: October 02, 2024 End: October 02, 2024 No Primary Care Physician Referring Provider Active Start: October 02, 2024 End: October 02, 2024 Dr. Laya Pugh MD Attending Provider Active Start: October 02, 2024 End: October 02, 2024 Team Status: Inactive Member Role/Relationship Status Dates No Primary Care Physician Primary Care Provider Active Start: July 04, 2024 End: July 04, 2024 No Primary Care Physician Referring Provider Active Start: July 04, 2024 End: July 04, 2024 Dr. Holly Lindsey DO Attending Provider Activ e Start: July 04, 2024 End: July 04, 2024 Team Status: Inactive Member Role/Relationship Status Dates No Primary Care Physician Primary Care Provider Active Start: July 30, 2024 End: July 30, 2024 No Primary Care Physician Referring Provider Active Start: July 30, 2024 End: July 30, 2024 Linh Obregon NP, CARD SERVICES SPECIALIST-C Attending Provider Active Start: July 30, 2024 End: July 30, 2024 Team Status: Inactive Member Role/Relationship Status Dates No Primary Care Physician Primary Care Provider Active Start: July 30, 2024 End: July 30, 2024 Dr. Laya Pugh MD Attending Provider Active Start: July 30, 2024 End: July 30, 2024 Dr. Laya Pugh MD Referring Provider Active Start: July 30, 2024 End: July 30, 2024 Team Status: Inactive Member Role/Relationship Status Dates No Primary Care Physician Primary Care Provider Active Start: August 15, 2024 End: August 15, 2024 No Primary Care Physician Referring Provider Active Start: August 15, 2024 End: August 15, 2024 Jorge Valente CNM Attending Provider Active S tart: August 15, 2024 End: August 15, 2024 Team Status: Inactive Member Role/Relationship Status Dates No Primary Care Physician Primary Care Provider Active Start: August 28, 2024 End: August 28, 2024 No Primary Care Physician Referring Provider Active Start: August 28, 2024 End: August 28, 2024 Linh Obregon NP, CARD SERVICES SPECIALIST-C Attending Provider Active Start: August 28, 2024 End: August 28, 2024 Team Status: Inactive Member Role/Relationship Status Dates No Primary Care Physician Primary Care Provider Active Start: September 11, 2024 End: September 11, 2024 No Primary Care Physician Referring Provider Active Start: September 11, 2024 End: September 11, 2024 Dr. Holly Lindsey DO Attending Provider Activ e Start: September 11, 2024 End: September 11, 2024 Team Status: Inactive Member Role/Relationship Status Dates No Primary Care Physician Primary Care Provider Active Start: September 24, 2024 End: September 24, 2024 No Primary Care Physician Referring Provider Active Start: September 24, 2024 End: September 24, 2024 Jorge Valente CNM Attending Provider Active S tart: September 24, 2024 End: September 24, 2024 Team Status: Inactive Member Role/Relationship Status Dates No Primary Care Physician Primary Care Provider Active Start: September 24, 2024 End: September 24, 2024 Jorge Valente CNM Attending Provider Active S tart: September 24, 2024 End: September 24, 2024 Jorge Valente CNM Referring Provider Active S tart: September 24, 2024 End: September 24, 2024 Team Status: Inactive Member Role/Relationship Status Dates No Primary Care Physician Primary Care Provider Active Start: October 02, 2024 End: October 02, 2024 No Primary Care Physician Referring Provider Active Start: October 02, 2024 End: October 02, 2024 Dr. Laya Pugh MD Attending Provider Active Start: October 02, 2024 End: October 02, 2024 Team Status: Inactive Member Role/Relationship Status Dates No Primary Care Physician Primary Care Provider Active Start: October 11, 2024 End: October 11, 2024 No Primary Care Physician Referring Provider Active Start: October 11, 2024 End: October 11, 2024 Jorge Valente CNM Attending Provider Active S tart: October 11, 2024 End: October 11, 2024 Team Status: Inactive Member Role/Relationship Status Dates No Primary Care Physician Primary Care Provider Active Start: October 16, 2024 End: October 16, 2024 No Primary Care Physician Referring Provider Active Start: October 16, 2024 End: October 16, 2024 Dr. Laya Pugh MD Attending Provider Active Start: October 16, 2024 End: October 16, 2024 Goals (unrecognized section and content) Goals may be documented in a n alternate section FOR RECORDS PERTAINING TO PATIENTS WHO ARE OR HAVE BEEN ENROLLED IN A CHEMICAL DEPENDENCY/SUBSTANCEABUSE PROGRAM, SOME INFORMATION MAY BE OMITTED. This clinical summary was aggregated from multiple sources. Caution should be exercised in using it in the provision of clinical care. This summary normalizes information from multiple sources, and as a consequence, information in this document may materially change the coding, format and clinical context of patient data. In addition, data may be omitted in some cases. CLINICAL DECISIONS SHOULD BE BASED ON THE PRIMARY CLINICAL RECORDS. [employer] provides no warranty or guarantee of the accuracy or completeness of information in this document.
--- OUTSIDE RECORDS SUMMARY | 2024-10-20 04:49 | XMS RPT_ITS | CCD ---
Author Organization [facility] Providers [facility] Palliative Care Physician Name Role Phone O'VILLALBA, MIRIAM PIANO TEACHER Primary Care Unavailable O'VILLALBA, MIRIAM PIANO TEACHER Attending Unavailable O'VILLALBA, MIRIAM PIANO TEACHER Admitting Unavailable O'VILLALBA, MIRIAM PIANO TEACHER Primary Care Unavailable O'VILLALBA, MIRIAM PIANO TEACHER Attending Unavailable O'VILLALBA, MIRIAM PIANO TEACHER Admitting Unavailable O'VILLALBA, MIRIAM PIANO TEACHER Primary Care Unavailable O'VILLALBA, MIRIAM PIANO TEACHER Attending Unavailable O'VILLALBA, MIRIAM PIANO TEACHER Admitting Unavailable PHYSICIAN, NONE Primary Care Physician [...] Dr. Laya Pugh MD Attending Provider [phone] Dr. Laya Pugh MD Referring Provider [phone] Jorge Valente CNM Attending Provider [phone] Linh Duffy Attending Provider [phone] Care Physician, No Primary Primary Care Provider Unavailable Care Physician, No Primary Referring Provider Un available Dr. Laya Pugh MD Attending Provider [phone] Vaibhav Ramirez DO, Dr. Barrera Attending Provider Dr. Laya Pugh MD Referring Provider Care Physician, No Primary Primary Care Provider Unavailable Care Physician, No Primary Referring Provider Un available Casey CNJorge Lo Attending Provider [phone] Care Physician, No Primary Primary Care Provider Unavailable Care Physician, No Primary Referring Provider Un available [place] PIANO TEACHER-CLinh Attending Provider [phone] Casey CNM, Jorge Referring Provider [phone] Care Physician, No Primary Primary Care Provider Unavailable Care Physician, No Primary Referring Provider Un available Keaton LOCKWOOD, Dr. Asif Attending Provider Care Physician, No Primary Referring Unava ilable Jorge Valente Attending Unavailable Care Physician, No Primary Primary Care Unava ilable Care Physician, No Primary Referring Unava ilable Laya Pugh Attending Unavailable Care Physician, No Primary Primary Care Unava ilable [place] PIANO TEACHER, Linh Attending Unavailable Care Physician, No Primary Primary Care Unava ilable Care Physician, No Primary Referring Unava ilable Care Physician, No Primary Primary Care Unava ilable Care Physician, No Primary Referring Unava ilable Jorge Valente Attending Unavailable Care Physician, No Primary Primary Care Unava ilable Laya Pugh Attending Unavailable Laya Pugh Referring Unavailable Care Physician, No Primary Primary Care Unava ilable [place] PIANO TEACHER, Linh Referring Unavailable [place] PIANO TEACHER, Linh Attending Unavailable Holly Lindsey Consulting Unavailabl [...] Physician, No Primary Referring Unava ilable [place] PIANO TEACHER, Linh Attending Unavailable Care Physician, No Primary [...] Unava ilable Marcela Patrick Attending Unavailable [place] PIANO TEACHER, Linh Attending Unavailable Care Physician, No Primary [...] Refill(s), 07/22/22 4:00:00 EDT, [facility]: [facility][id number], 160.6, cm, 07/12/22 11:28:00 EDT, Height Start [...] 1 capsule by mouth once daily Evening Lerona Oil 1000 mg oral capsule Dose : [...] take 1 dose by mouth once daily [place]-3 Fish Oil Dose : 3,200 mg =, [...] 60 tab(s), 0 Refill(s), [facility]: [facility] #[id number], 160.6, cm, 07/12/22 11:28:00 EDT, Height, kg, [...] Refill(s), 07/22/22 4:00:00 EDT, [facility]: [facility] #[id number], 160.6, cm, 07/12/22 11:28:00 EDT, Height, 89 Start Date: 07/17/22 Stop Date: 07/22/22 Status: Ordered Misc Medication (2 sources) Start: 09-28-2021 Misc Medicatio n 0 Refill(s) Start Date: 09/28/21 Status: Ordered Start: 09-28-2021 [facility] Medicatio n 0 Refill(s) [...] Refill(s), 07/23/22 4:01:00 EDT, [facility]: [facility] #[id number], Post-op pain, 160.6, cm, 07/12/22 11:28:00 EDT, [...] Refill(s) Start Date: 09/28/21 Status: Ordered sennosides, shelter 8.6 mg oral tablet (1 source) Start: 07-17-2022 End: 08-06-2022 Senokot 8.6 mg oral tablet Dose : 8.6 mg = 1 tab(s), Oral, qHS, PRN for constipation, # 20 tab(s), 0 Refill(s), Pharmacy: [facility] #[id number], 160.6, cm, 07/12/22 11:28:00 EDT, Height, kg, [...] Test Name Value Interpretation Reference Range Facility Supervisor Policy [facility]erks Office Visit Reporton 10-16-2024 Supervisor Policy Change Clerks Office Visit Report [facility] [address], [address] [place] [address] OFFICE VISIT Date of Service: 10/16/24 MR#: [id number] Acct: [id number] Name: JERMAIN GERARD Rep #: [id number] : 2000 Provider: Dr. 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 Normal [facility] Laboratory - Chemistry and C hemistry - challengeOrdered By: Jorge Valente on 10-11-2024 Glucose Ql (U) Negative [facility] - UrinalysisOrder ed By: Jorge Valente on 10-11-2024 Protein Ql (U) Negative [facility] Supervisor Policy Change Clerks Office Visit Reporton 10-11-2024 Supervisor Policy Change Clerks Office Visit Report [facility] [address], [address] [place] [address] OFFICE VISIT Date of Service: 10/11/24 MR#: [id number] Acct: [id number] Name: JERMAIN GERARD Rep #: [id number] 2 : 2000 Provider: FABBY [facility] Age/Sex: 24/F [place] [facility] [place]: Signed Intake Vital Signs 08/28/24 14:41 10/02/24 14:55 10/11/24 07:57 Height 5 ft 5 in 5 ft 5 in 5 ft 5 in Weight: 219 lb 9 oz BMI 36.5 BP 112/79 Intake Visit Reasons: 38wk ob *trying for Chief Complaint: 38wk OB Slitter Cut Off Operator Required: No Is patient in pain?: No [...] 1 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 Normal [facility] - Chemistry and C hemistry - challengeOrdered By: Laya Pugh on 10-02-2024 Glucose Ql (U) Negative [facility] Laboratory - UrinalysisOrder ed By: Laya Pugh on 10-02-2024 Protein Ql (U) Negative [facility] Supervisor Policy Change Clerks Office Visit Reporton 10-02-2024 Supervisor Policy Change Clerks Office Visit Report [facility] [address], [address] [place] [address] OFFICE VISIT Date of Service: 10/02/24 MR#: [id number] Acct: [id number] Name: JERMAIN GERARD Rep #: [id number] : 2000 Provider: Dr. Laya black MD Age/Sex: 24/F [place] [facility] [place]: Signed Intake Vital Signs 08/28/24 14:41 09/24/24 14:08 10/02/24 14:55 Height 5 ft 5 in 5 ft 5 in 5 ft 5 in Weight: 222 lb 4 oz BMI 37.0 BP 122/84 H Intake Visit Reasons: 37wk ob Slitter Cut Off Operator Required: No Is patient in pain?: No [...] 1 current occupational status: employed current occupation: [employer] current occupational exposures/hazards: No pets and animals: Yes pets and animals: dog(s) history of recent travel: Yes ([place] - Beginning of Feb 2024) out of [...] 3-4 times per week duration: 15-30 minutes/day jerome/lutheran: None seatbelt use: always do you feel [...] 8lbs 6oz Female epidural Aultm an Dr. Djea Hamlin 06/08/23 6 molar Delivery Date: 07/14/22 [...] desires N (more content not included)... Normal [facility] Rule out Beta Strep (Grp. B) on 09-29-2024 SANDRITA Group B Beta Streptococcus is not isolated. Normal [facility] Comment on above: Performed By: #### M 100.3400 ####[facility] [id number] [place], [address] Laboratory - Chemistry and C hemistry - challengeOrdered By: Jorge Valente on 09-24-2024 Glucose Ql (U) Negative [facility] Laboratory - UrinalysisOrder ed By: Jorge Valente on 09-24-2024 Protein Ql (U) Negative [facility] Supervisor Policy Change Clerks Office Visit Reporton 09-24-2024 Supervisor Policy Change Clerks Office Visit Report [facility] [address], [address] [place] [address] OFFICE VISIT Date of Service: 09/24/24 MR#: [id number] Acct: [id number] Name: JERMAIN GERARD Rep #: [id number] : 2000 Provider: FABBY Stephen ams Age/Sex: 24/F [place] [facility] [place]: Signed Intake Vital Signs 07/30/24 15:24 09/11/24 09:34 09/24/24 14:08 Height 5 ft 5 in 5 ft 5 in 5 ft 5 in Weight: 217 lb 5 oz BMI 36.1 BP 119/81 H Intake Visit Reasons: 36 wk ob Chief Complaint: 36wk OB Slitter Cut Off Operator Required: No Is patient in pain?: No [...] 1 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 Normal [facility] Screening beta-hemolytic Str eptococcus cultureOrdered By: Jorge Valente on 09-24-2024 Beta-hemolytic Streptococcus culture Group B Beta Streptococcus is not isolated. [facility] Laboratory - Chemistry and C hemistry - challengeOrdered By: Holly Ramirez on 09-11-2024 Glucose Ql (U) Negative [facility] Laboratory - UrinalysisOrder ed By: Holly Ramirez on 09-11-2024 Protein Ql (U) Negative [facility] Supervisor Policy Change Clerks Office Visit Reporton 09-11-2024 Supervisor Policy Change Clerks Office Visit Report [facility] [address], [address] [place] [address] OFFICE VISIT Date of Service: 09/11/24 MR#: [id number] Acct: [id number] Name: JERMAIN GERARD Rep #: [id number] : 2000 Provider: Dr. 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 (more content not included)... Normal [facility] Laboratory - Chemistry and C hemistry - challengeOrdered By: Laya Pugh on 08-28-2024 Glucose Ql (U) Negative [facility] Laboratory - UrinalysisOrder ed By: Laya Pugh on 08-28-2024 Protein Ql (U) Negative [facility] Laboratory - Chemistry and C hemistry - challengeOrdered By: Jorge Valente on 08-15-2024 Glucose Ql (U) Negative [facility] Laboratory - UrinalysisOrder ed By: Jorge Valente on 08-15-2024 Protein Ql (U) Trace [facility] Supervisor [employer] [facility]erks Office Visit Reporton 08-15-2024 Supervisor Policy Change Clerks Office Visit Report [facility] [address], [address] [place] [address] OFFICE VISIT Date of Service: 08/15/24 MR#: [id number] Acct: [id number] Name: JERMAIN GERARD Rep #: [id number] : 2000 Provider: FABBY Stephen ams Age/Sex: 24/F Location: [facility] [place] Status: Signed Intake Vital Signs 07/04/24 10:51 07/30/24 15:24 08/15/24 11:21 Height 5 ft 5 in 5 ft 5 in 5 ft 5 in Weight: 214 lb 6 oz BMI 35.6 BP 109/77 Intake Visit Reasons: 30wk ob Slitter Cut Off Operator Required: No Is patient in pain?: No [...] 1 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 [place] ordered. 05/09/24 -???-???-???-???-???- ???-???-???-???-???-? ??- (more content not included)... Normal [facility] Absolute lymphocyte countOrd ered By: Holly Ramirez on 07-30-2024 Lymphocytes Auto (Unsp spec) [#/Vol] 1.89 10*3/uL 0.83-4.51 [facility] Absolute neutrophil countOrd ered By: Holly Ramirez on 07-30-2024 Neutrophils (Bld) [#/Vol] 8.2 10*3/uL High 2.0-7.7 [facility] Automated lymphocyte count a s percentage of total leukocytesOrdered By: Holly Ramirez on 07-30-2024 Lymphocytes/100 WBC Auto (Unsp spec) 17.0 % Low 19-41 [facility] Basophil percentageOrdered B y: Holly Ramirez on 07-30-2024 Basophils/100 WBC (Bld) 0.5 % 0-1 [facility] CBC W/Diff, Automatedon 07-09 Absolute Lymph 1.89 X10 3/uL Normal 0.83-4.51 [facility] Comment on above: Performed By: #### L 3890.6006, L501.0250, L100.0100, L509.8002 #### [facility] [address] [place], [address] Absolute Neut 8.2 X10 3/uL High 2.0-7.7 [facility] Comment on above: Performed By: #### L 3890.6006, L501.0250, L100.0100, L509.8002 #### [facility] [address] [place], [address] Basophils/100 WBC (Bld) 0.5 % Normal 0-1 [facility] Comment on above: Performed By: #### L 3890.6006, L501.0250, L100.0100, L509.8002 #### [facility] [address] [place], [address] Eosinophils/100 WBC (Bld) 1.5 % Normal 0-5 [facility] Comment on above: Performed By: #### L 3890.6006, L501.0250, L100.0100, L509.8002 #### [facility] [address] [place], [address] Erythrocyte distribution width (RBC) [Ratio] 13.9 % Normal 11.6-14.6 [facility] Comment on above: Performed By: #### L 3890.6006, L501.0250, L100.0100, L509.8002 #### [facility] [address] [place], [address] Hematocrit (Bld) [Volume fraction] 32.6 % Low 37-47 [facility] Comment on above: Performed By: #### L 3890.6006, L501.0250, L100.0100, L509.8002 #### [facility] [address] [place], [address] Hemoglobin (Bld) [Mass/Vol] 10.6 g/dL Low 12.0-15.0 [facility] Comment on above: Performed By: #### L 3890.6006, L501.0250, L100.0100, L509.8002 #### [facility] [address] [place], [address] IG% 0.700 Normal 0.0-0.9 [facility] Comment on above: Result Comment: IG% - Immature Granulocytes (promyelocytes, myelocytes and metamyelocytes) > 1% indicates that a LEFT SHIFT is Present. Performed By: #### L 3890.6006, L501.0250, L100.0100, L509.8002 #### [facility] [address] [place], [address] Lymphocytes/100 WBC (Bld) 17.0 % Low 19-41 [facility] Comment on above: Performed By: #### L 3890.6006, L501.0250, L100.0100, L509.8002 #### [facility] [address] [place], [address] MCH (RBC) [Entitic mass] 30.1 pg Normal 27.0-32.0 [facility] Comment on above: Performed By: #### L 3890.6006, L501.0250, L100.0100, L509.8002 #### [facility] [address] [place], [address] MCHC (RBC) [Mass/Vol] 32.5 g/dL Normal 32-36 [facility] Comment on above: Performed By: #### L 3890.6006, L501.0250, L100.0100, L509.8002 #### [facility] [address] [place], [address] MCV (RBC) [Entitic vol] 92.6 fL Normal 81-99 [facility] Comment on above: Performed By: #### L 3890.6006, L501.0250, L100.0100, L509.8002 #### [facility] [address] [place], [address] Monocytes/100 WBC (Bld) 6.0 % Normal 0-10 [facility] Comment on above: Performed By: #### L 3890.6006, L501.0250, L100.0100, L509.8002 #### [facility] [address] [place], [address] Neutrophils/100 WBC (Bld) 74.3 % High 47-70 [facility] Comment on above: Performed By: #### L 3890.6006, L501.0250, L100.0100, L509.8002 #### [facility] [address] [place], [address] Nucleated RBC (Bld) [#/Vol] 0 10*3/uL Normal 0-5 [facility] Comment on above: Performed By: #### L 3890.6006, L501.0250, L100.0100, L509.8002 #### [facility] [address] [place], [address] Platelet mean volume (Bld) [Entitic vol] 10.3 fL Normal 6.2-12.0 [facility] Comment on above: Performed By: #### L 3890.6006, L501.0250, L100.0100, L509.8002 #### [facility] [address] [place], [address] Platelets (Bld) [#/Vol] 283 10*3/uL Normal 150-450 [facility] Comment on above: Performed By: #### L 3890.6006, L501.0250, L100.0100, L509.8002 #### [facility] [address] [place], [address] RBC (Bld) [#/Vol] 3.52 10*6/uL Low 4.2-5.[address] [facility] Comment on above: Performed By: #### L 3890.6006, L501.0250, L100.0100, L509.8002 #### [facility] [address] [place], [address] RDW SD 46.8 fl High 35.1-43.9 [facility] Comment on above: Performed By: #### L 3890.6006, L501.0250, L100.0100, L509.8002 #### [facility] [address] [place], [address] WBC (Bld) [#/Vol] 11.1 10*3/uL High 4.4-11.[address] [facility] Comment on above: Performed By: #### L 3890.6006, L501.0250, L100.0100, L509.8002 #### [facility] [address] [place], [address] Eosinophil percentageOrdered By: Holly Ramirez on 07-30-2024 Eosinophils/100 WBC (Bld) 1.5 % 0-5 [facility] Erythrocyte distribution wid th ratioOrdered By: Holly Ramirez on 07-30-2024 Erythrocyte distribution width (RBC) [Ratio] 13.9 % 11.6-14.6 [facility] Erythrocyte distribution wid th standard deviationOrdered By: Holly Ramirez on 07-30-2024 Erythrocyte distribution width (RBC) [Ratio] 46.8 fl High 35.1-43.9 [facility] Glucose Challenge Gest 1H 50 elizabeth 07-30-2024 GLU GEST 50g 1H 114 mg/dL Normal 70-140 [facility] Comment on above: Performed By: #### L 3890.6006, L501.0250, L100.0100, L509.8002 #### [facility] [address] [place], [place], [address] Glucose measurement at 2 ayaan rs post-dose gestational glucose tolerance testOrdered By: Holly Ramirez on 07-30-2024 Glucose [Mass/Vol] 114 mg/dL 70-140 [facility] HIVon 07-30-2024 HIV Non-Reactive Normal Nonreactive [facility] Comment on above: Result Comment: Non- Reactive Reactive Repeatedly reactive samples must be confirmed according to CDC recommended confirmatory algorithms. The subresults for either HIVAG or AHIV can be used as an aid in the selection of the confirmation algorithm for reactive samples. Send out specimens with Reactive results to [facility] for confirmation. Order the HIV antibody detection and differentiation: lc#[id number] Performed By: #### L 3890.6006, L501.0250, L100.0100, L509.8002 ####[facility] [id number] [place], [place], [address] Hematocrit Auto (Bld) [Volum e fraction]Ordered By: Holly Ramirez on 07-30-2024 Hematocrit (Bld) [Volume fraction] 32.6 % Low 37-47 [facility] Hemoglobin measurementOrdere d By: Holly Ramirez on 07-30-2024 Hemoglobin (Bld) [Mass/Vol] 10.6 g/dL Low 12.0-15.0 [facility] Immature granulocytes/100 WB C Auto (Bld)Ordered By: Holly Ramirez on 07-30-2024 Immature granulocytes/100 WBC (Bld) 0.700 % 0.0-0.9 [facility] Comment on above: IG% - Immature Granu locytes (promyelocytes, myelocytes and metamyelocytes) > 1% indicates that a LEFT SHIFT is Present. Laboratory - Chemistry and C hemistry - challengeOrdered By: Linh [place] on 07-30-2024 Glucose Ql (U) Negative [facility] Laboratory - UrinalysisOrder ed By: Linh [place] on 07-30-2024 Protein Ql (U) Negative [facility] MCV (mean corpuscular volume ) determinationOrdered By: Holly Ramirez on 07-30-2024 MCV (RBC) [Entitic vol] 92.6 fL 81-99 [facility] Mean corpuscular hemoglobin (MCH) determinationOrdered By: Holly Ramirez on 07-30-2024 MCH (RBC) [Entitic mass] 30.1 pg 27.0-32.0 [facility] Mean corpuscular hemoglobin concentration (MCHC) determinationOrdered By: Holly Ramirez on 07-30-2024 MCHC (RBC) [Mass/Vol] 32.5 g/dL 32-36 [facility] Mean platelet volume determi nationOrdered By: Holly Ramirez on 07-30-2024 Platelet mean volume (Bld) [Entitic vol] 10.3 fL 6.2-12.0 [facility] Monocyte percentageOrdered B y: Holly Ramirez on 07-30-2024 Monocytes/100 WBC (Bld) 6.0 % 0-10 [facility] Neutrophil percentageOrdered By: Holly Ramirez on 07-30-2024 Neutrophils/100 WBC (Bld) 74.3 % High 47-70 [facility] No Panel InformationOrdered By: Holly Ramirez on 07-30-2024 HIV (1&2) Antibody Non-Reactive Nonreactive [facility] Comment on above: Non-ReactiveReactive Repeatedly reactive samples must be confirmed according to CDC recommended confirmatory algorithms. The subresults for either HIVAG or AHIV can be used as an aid in the selection of the confirmation algorithm for reactive samples.Send out specimens with Reactive results to [facility] for confirmation.Order the HIV antibody detection and differentiation: #[id number] Nucleated red blood cell per centageOrdered By: Holly Ramirez on 07-30-2024 Nucleated RBC/100 WBC (Bld) [Ratio] 0 % 0-5 [facility] Supervisor Policy Change Clerks Office Visit Reporton 07-30-2024 Supervisor Policy Change Clerks Office Visit Report [facility] [address], [address] [place] [address] OFFICE VISIT Date of Service: 07/30/24 MR#: [id number] Acct: [id number] Name: JERMAIN GERARD Rep #: [id number] : 2000 Provider: JC barrera Age/Sex: 24/F [place] [facility] [place]: Signed Intake Vital Signs 05/09/24 08:39 07/04/24 10:51 07/30/24 15:24 Height 5 ft 5 in 5 ft 5 in 5 ft 5 in Weight: 216 lb BMI 35.9 BP 118/80 Intake Visit Reasons: 28wk ob/glucose Chief Complaint: 28 Week OB/Glucose Slitter Cut Off Operator Required: No Is patient in pain?: No [...] 1 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 Normal [facility] Platelet countOrdered By: Marcial Ramirez on 07-30-2024 Platelets (Bld) [#/Vol] 283 10*3/uL 150-450 [facility] RBC Auto (Bld) [#/Vol]Ordere d By: Holly Ramirez on 07-30-2024 RBC (Bld) [#/Vol] 3.52 10*6/uL Low 4.2-5.[address] [facility] Syphilis Antibodieson 2024 Syphilis Abs Non-Reactive Normal Nonreactive [facility] Comment on above: Performed By: #### L 3890.6006, L501.0250, L100.0100, L509.8002 #### [facility] [address] [place], [address] White blood cell (WBC) count Ordered By: Holly Ramirez on 07-30-2024 WBC (Bld) [#/Vol] 11.1 10*3/uL High 4.4-11.[address] [facility] - Chemistry and C hemistry - challengeOrdered By: Holly Ramirez on 07-04-2024 Glucose Ql (U) Negative [facility] - UrinalysisOrder ed By: Holly Ramirez on 07-04-2024 Protein Ql (U) Negative [facility] Supervisor Policy Change Clerks Office Visit Reporton 07-04-2024 Supervisor Policy Change Clerks Office Visit Report [facility] [address], [address] [place] [address] OFFICE VISIT Date of Service: 07/04/24 MR#: [id number] Acct: [id number] Name: JERMAIN GERARD Rep #: [id number] : 2000 Provider: Dr. 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 ??-???- (more content not included)... Normal [facility] - Chemistry and C hemistry - challengeOrdered By: Laya Pugh on 06-08-2024 Glucose Ql (U) Negative [facility] - UrinalysisOrder ed By: Laya Pugh on 06-08-2024 Protein Ql (U) Negative [facility] Supervisor Policy Change Clerks Office Visit Reporton 06-08-2024 Supervisor Policy Change Clerks Office Visit Report [address], [address] [place] [address] OFFICE VISIT Date of Service: 06/08/24 MR#: [id number] Acct: [id number] Name: JERMAIN GERARD Rep #: [id number] : 2000 Provider: Dr. 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 [place] ordered. (more content not included)... Normal [facility] - Chemistry and C hemistry - challengeOrdered By: Linh Obregon on 05-09-2024 Glucose Ql (U) Negative [facility] - UrinalysisOrder ed By: Linh Obregon on 05-09-2024 Protein Ql (U) Negative [facility] Supervisor Policy Change Clerks Office Visit Reporton 05-09-2024 Supervisor Policy Change Clerks Office Visit Report [facility]'s [address], [address] [place] [address] OFFICE VISIT Date of Service: 05/09/24 MR#: [id number] Acct: [id number] Name: JERMAIN GERARD Rep #: [id number] : 2000 Provider: JC barrera Age/Sex: 24/F [place] [facility] [place]: Signed Intake Vital Signs 03/16/24 13:16 04/13/24 10:21 05/09/24 08:39 Height 5 ft 5 in 5 ft 5 in 5 ft 5 in Weight: 196 lb 6 oz BMI 32.6 BP 112/76 Intake Visit Reasons: 16 wk ob Chief Complaint: 16 Week OB Slitter Cut Off Operator Required: No Is patient in pain?: No [...] 1 current occupational status: employed 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 ??-???- (more content not included)... Normal [facility] - Chemistry and C hemistry - challengeOrdered By: Jorge Valente on 04-13-2024 Glucose Ql (U) Negative [facility] - UrinalysisOrder ed By: Jorge Valente on 04-13-2024 Protein Ql (U) Negative [facility] Supervisor Policy Change Clerks Office Visit Reporton 04-13-2024 Supervisor Policy Change Clerks Office Visit Report [facility]'s [address], [address] [place] [address] OFFICE VISIT Date of Service: 04/13/24 MR#: [id number] Acct: [id number] Name: JERMAIN GERARD Rep #: [id number] : 2000 Provider: FABBY Stephen ams Age/Sex: 24/F [place] [facility] [place]: Signed Intake Vital Signs 08/02/23 09:35 [...] 1 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 [place] ordered. [employer] First Trimester First Trimester: Discussed (more content not included)... Normal [facility] Absolute lymphocyte countOrd ered By: Holly Ramirez on 03-29-2024 Lymphocytes Auto (Unsp spec) [#/Vol] 1.68 10*3/uL 0.83-4.51 [facility] Absolute neutrophil countOrd ered By: Holly Ramirez on 03-29-2024 Neutrophils (Bld) [#/Vol] 7.5 10*3/uL 2.0-7.7 [facility] Automated lymphocyte count a s percentage of total leukocytesOrdered By: Holly Ramirez on 03-29-2024 Lymphocytes/100 WBC Auto (Unsp spec) 16.1 % Low 19-41 [facility] Basophil percentageOrdered B y: Holly Ashley on 03-29-2024 Basophils/100 WBC (Bld) 0.6 % 0-1 [facility] CBC W/Diff, Automatedon - Absolute Lymph 1.68 X10 3/uL Normal 0.83-4.51 [facility] Comment on above: Performed By: #### L 3890.6100, L501.9985, L100.0100, L3890.6300, L3890.6005, BTS, L509.8000, L509.4005 ####[facility] [address] [place], [place], [address] Absolute Neut 7.5 X10 3/uL Normal 2.0-7.7 [facility] Comment on above: Performed By: #### L 3890.6100, L501.9985, L100.0100, L3890.6300, L3890.6005, BTS, L509.8000, L509.4005 ####[facility] [address] [place], [address] Basophils/100 WBC (Bld) 0.6 % Normal 0-1 [facility] Comment on above: Performed By: #### L 3890.6100, L501.9985, L100.0100, L3890.6300, L3890.6005, BTS, L509.8000, L509.4005 ####[facility] [address] [place], [address] Eosinophils/100 WBC (Bld) 4.0 % Normal 0-5 [facility] Comment on above: Performed By: #### L 3890.6100, L501.9985, L100.0100, L3890.6300, L3890.6005, BTS, L509.8000, L509.4005 ####[facility] [address] [place], [address] Erythrocyte distribution width (RBC) [Ratio] 12.6 % Normal 11.6-14.6 [facility] Comment on above: Performed By: #### L 3890.6100, L501.9985, L100.0100, L3890.6300, L3890.6005, BTS, L509.8000, L509.4005 ####[facility] [address] [place], [address] Hematocrit (Bld) [Volume fraction] 38.5 % Normal 37-47 [facility] Comment on above: Performed By: #### L 3890.6100, L501.9985, L100.0100, L3890.6300, L3890.6005, BTS, L509.8000, L509.4005 ####[facility] [address] [place], [address] Hemoglobin (Bld) [Mass/Vol] 12.7 g/dL Normal 12.0-15.0 [facility] Comment on above: Performed By: #### L 3890.6100, L501.9985, L100.0100, L3890.6300, L3890.6005, BTS, L509.8000, L509.4005 ####[facility] [address] [place], [address] IG% 0.400 Normal 0.0-0.9 [facility] Comment on above: Result Comment: IG% - Immature Granulocytes (promyelocytes, myelocytes and metamyelocytes) > 1% indicates that a LEFT SHIFT is Present. Performed By: #### L 3890.6100, L501.9985, L100.0100, L3890.6300, L3890.6005, BTS, L509.8000, L509.4005 ####[facility] [address] [place], [address] Lymphocytes/100 WBC (Bld) 16.1 % Low 19-41 [facility] Comment on above: Performed By: #### L 3890.6100, L501.9985, L100.0100, L3890.6300, L3890.6005, BTS, L509.8000, L509.4005 ####[facility] [address] [place], [address] MCH (RBC) [Entitic mass] 29.7 pg Normal 27.0-32.0 [facility] Comment on above: Performed By: #### L 3890.6100, L501.9985, L100.0100, L3890.6300, L3890.6005, BTS, L509.8000, L509.4005 ####[facility] [address] [place], [address] MCHC (RBC) [Mass/Vol] 33.0 g/dL Normal 32-36 [facility] [place] [facility] Comment on above: Performed By: #### L 3890.6100, L501.9985, L100.0100, L3890.6300, L3890.6005, BTS, L509.8000, L509.4005 ####[facility] [address] [place], [address] MCV (RBC) [Entitic vol] 90.2 fL Normal 81-99 [facility] Comment on above: Performed By: #### L 3890.6100, L501.9985, L100.0100, L3890.6300, L3890.6005, BTS, L509.8000, L509.4005 ####[facility] [address] [place], [address] Monocytes/100 WBC (Bld) 7.6 % Normal 0-10 [facility] Comment on above: Performed By: #### L 3890.6100, L501.9985, L100.0100, L3890.6300, L3890.6005, BTS, L509.8000, L509.4005 ####[facility] [address] [place], [address] Neutrophils/100 WBC (Bld) 71.3 % High 47-70 [facility] Comment on above: Performed By: #### L 3890.6100, L501.9985, L100.0100, L3890.6300, L3890.6005, BTS, L509.8000, L509.4005 ####[facility] [address] [place], [address] Nucleated RBC (Bld) [#/Vol] 0 10*3/uL Normal 0-5 [facility] Comment on above: Performed By: #### L 3890.6100, L501.9985, L100.0100, L3890.6300, L3890.6005, BTS, L509.8000, L509.4005 ####[facility] [address] [place], [address] Platelet mean volume (Bld) [Entitic vol] 10.2 fL Normal 6.2-12.0 [facility] Comment on above: Performed By: #### L 3890.6100, L501.9985, L100.0100, L3890.6300, L3890.6005, BTS, L509.8000, L509.4005 ####[facility] [address] [place], [address] Platelets (Bld) [#/Vol] 322 10*3/uL Normal 150-450 [facility] Comment on above: Performed By: #### L 3890.6100, L501.9985, L100.0100, L3890.6300, L3890.6005, BTS, L509.8000, L509.4005 ####[facility] [address] [place], [address] RBC (Bld) [#/Vol] 4.27 10*6/uL Normal 4.2-5.[address] [facility] Comment on above: Performed By: #### L 3890.6100, L501.9985, L100.0100, L3890.6300, L3890.6005, BTS, L509.8000, L509.4005 ####[facility] [address] [place], [address] RDW SD 41.1 fl Normal 35.1-43.9 [facility] Comment on above: Performed By: #### L 3890.6100, L501.9985, L100.0100, L3890.6300, L3890.6005, BTS, L509.8000, L509.4005 ####[facility] [address] [place], [address] WBC (Bld) [#/Vol] 10.5 10*3/uL Normal 4.4-11.[address] [facility] Comment on above: Performed By: #### L 3890.6100, L501.9985, L100.0100, L3890.6300, L3890.6005, BTS, L509.8000, L509.4005 ####[facility] [address] [place], [place], [address] Eosinophil percentageOrdered By: Holly Ramirez on 03-29-2024 Eosinophils/100 WBC (Bld) 4.0 % 0-5 [facility] Erythrocyte distribution wid th ratioOrdered By: Holly Ramirez on 03-29-2024 Erythrocyte distribution width (RBC) [Ratio] 12.6 % 11.6-14.6 [facility] Erythrocyte distribution wid th standard deviationOrdered By: Holly Ramirez on 03-29-2024 Erythrocyte distribution width (RBC) [Ratio] 41.1 fl 35.1-43.9 [facility] HIV - WCHon 03-29-2024 HIV Non-Reactive Normal Nonreactive [facility] Comment on above: Order Comment: Reaso n for Exam: Performed By: #### L 3890.6100, L501.9985, L100.0100, L3890.6300, L3890.6005, BTS, L509.8000, L509.4005 ####[facility] [address] [place], [place], [address] HIV 1 and HIV-2 antibody ass ay with HIV-1 p24 antigen detectionOrdered By: Holly Ramirez on 03-29-2024 HIV 1+2 Ab+HIV1 p24 Ag IA Ql Non-Reactive Nonreactive [facility] Hematocrit Auto (Bld) [Volum e fraction]Ordered By: Holly Ramirez on 03-29-2024 Hematocrit (Bld) [Volume fraction] 38.5 % 37-47 [facility] Hemoglobin A1con 03-29-2024 HbA1c (Bld) [Mass fraction] 5.1 % Normal 3.8-5.6 [facility] Comment on above: Result Comment: Norm al < 5.7 % Prediabetic 5.7 - 6.4 % Diabetic >or= 6.5 % Please note range changes. Performed By: #### L 3890.6100, L501.9985, L100.0100, L3890.6300, L3890.6005, BTS, L509.8000, L509.4005 ####[facility] [address] [place], [place], [address] Hemoglobin A1c percentageOrd ered By: Hloly Ramirez on 03-29-2024 HbA1c (Bld) [Mass fraction] 5.1 % 3.8-5.6 [facility] Comment on above: Normal < 5.7 % Predi abetic 5.7 - 6.4 % Diabetic >or= 6.5 % Please note range changes. Hemoglobin measurementOrdere d By: Holly Ramirez on 03-29-2024 Hemoglobin (Bld) [Mass/Vol] 12.7 g/dL 12.0-15.0 [facility] Hepatitis B Surface Antigeno n 03-29-2024 HEP B Surf Ag Non-Reactive Normal Nonreactive [facility] Comment on above: Order Comment: Reaso n for Exam: Performed By: #### L 3890.6100, L501.9985, L100.0100, L3890.6300, L3890.6005, BTS, L509.8000, L509.4005 ####[facility] [address] [place], [place], [address] Hepatitis C Antibodyon 03-29 Hepatitis C AB Non-Reactive Normal Nonreactive [facility] Comment on above: Order Comment: Reaso n for Exam: Result Comment: Non Reactive: < 0.8 Equivocal: >/= 0.8 to < 1.0 Reactive: >/= 1.0 The CDC requires that a reactive/equivocal HCV antibody result be sent out for confirmation. HCV Quant by PCR testing. Performed By: #### L 3890.6100, L501.9985, L100.0100, L3890.6300, L3890.6005, BTS, L509.8000, L509.4005 ####[facility] [address] [place], [address] Immature granulocytes/100 WB C Auto (Bld)Ordered By: Holly Ramirez on 03-29-2024 Immature granulocytes/100 WBC (Bld) 0.400 % 0.0-0.9 [facility] Comment on above: IG% - Immature Granu locytes (promyelocytes, myelocytes and metamyelocytes) > 1% indicates that a LEFT SHIFT is Present. L509.8000on 03-29-2024 Syphilis Abs Non-Reactive Normal [facility] Comment on above: Order Comment: Reaso n for Exam: Performed By: #### L 3890.6100, L501.9985, L100.0100, L3890.6300, L3890.6005, BTS, L509.8000, L509.4005 ####[facility] [address] [place], [address] MCV (mean corpuscular volume ) determinationOrdered By: Holly Ramirez on 03-29-2024 MCV (RBC) [Entitic vol] 90.2 fL 81-99 [facility] Mean corpuscular hemoglobin (MCH) determinationOrdered By: Holly Ramirez on 03-29-2024 MCH (RBC) [Entitic mass] 29.7 pg 27.0-32.0 [facility] Mean corpuscular hemoglobin concentration (MCHC) determinationOrdered By: Holly Ramirez on 03-29-2024 MCHC (RBC) [Mass/Vol] 33.0 g/dL 32-36 [facility] [place] [facility] Mean platelet volume determi nationOrdered By: Holly Ramirez on 03-29-2024 Platelet mean volume (Bld) [Entitic vol] 10.2 fL 6.2-12.0 [facility] Monocyte percentageOrdered B y: Holly Ramirez on 03-29-2024 Monocytes/100 WBC (Bld) 7.6 % 0-10 [facility] NATERAon 03-29-2024 NATURA SEE SCANNED REPORT Normal [facility] Comment on above: Performed By: #### L 900.0098 ####[facility] [address] [place], [address] Neutrophil percentageOrdered By: Holly Ramirez on 03-29-2024 Neutrophils/100 WBC (Bld) 71.3 % High 47-70 [facility] Nucleated red blood cell per centageOrdered By: Holly Ramirez on 03-29-2024 Nucleated RBC/100 WBC (Bld) [Ratio] 0 % 0-5 [facility] Platelet countOrdered By: Marcial Ramirez on 03-29-2024 Platelets (Bld) [#/Vol] 322 10*3/uL 150-450 [facility] RBC Auto (Bld) [#/Vol]Ordere d By: Holly Ramirez on 03-29-2024 RBC (Bld) [#/Vol] 4.27 10*6/uL 4.2-5.[address] [facility] Rubella IgGon 03-29-2024 Rubella IgG Reactive Normal Nonreactive [facility] Comment on above: Order Comment: Reaso n for Exam: Result Comment: Anti body Results Interpretation of Immune Status Non Reactive Presumed Non-Immune Equivocal Equivocal Reactive Presumed Immune Performed By: #### L 3890.6100, L501.9985, L100.0100, L3890.6300, L3890.6005, BTS, L509.8000, L509.4005 ####[facility] [address] [place], [place], [address] Serum Treponema species anti body detectionOrdered By: Holly Ramirez on 03-29-2024 Treponema sp Ab Ql (S) Non-Reactive [facility] Type AND Screenon 03-29-2024 Ab SCREEN GEL Negative Normal [facility] Comment on above: Order Comment: PN Performed By: #### L 3890.6100, L501.9985, L100.0100, L3890.6300, L3890.6005, BTS, L509.8000, L509.4005 ####[facility] [address] [place], [address] White blood cell (WBC) count Ordered By: Holly Ramirez on 03-29-2024 WBC (Bld) [#/Vol] 10.5 10*3/uL 4.4-11.[address] [facility] PAP I-G w/rfx hrHPV-Aptimaon 03-21-2024 ADEQ Comment Normal . [facility] Comment on above: Order Comment: Speci men Comment: [id number] Specimen Comment: Source.............Cervix;Endocervix Specimen Comment: Other.............. Specimen Comment: No. of containers..01 ThinPrep Vial Result Comment: Sati sfactory for evaluation. No endocervical component is identified. An endocervical component is not commonly seen in the patient. Performed By: #### L 7000.1800, L7400.0353, M100.2200 #### [facility] [address] [place], [address] COMM . Normal . [facility] Comment on above: Order Comment: Speci men Comment: [id number] Specimen Comment: Source.............Cervix;Endocervix Specimen Comment: Other.............. Specimen Comment: No. of containers..01 ThinPrep Vial Performed By: #### L 7000.1800, L7400.0353, M100.2200 #### [facility] [address] [place], [place], [address] COMMENT Comment Normal . [facility] Comment on above: Order Comment: Speci men Comment: [id number] Specimen Comment: Source.............Cervix;Endocervix Specimen Comment: Other.............. Specimen Comment: No. of containers..01 ThinPrep Vial Result Comment: This liquid based ThinPrep(R) pap test was screened with the use of an image guided system. Performed By: #### L 7000.1800, L7400.0353, M100.0 #### [facility] [address] [place], [address] DIAG Comment Normal . [facility] Comment on above: Order Comment: Speci men Comment: [id number] Specimen Comment: Source.............Cervix;Endocervix Specimen Comment: Other.............. Specimen Comment: No. of containers..01 ThinPrep Vial Result Comment: NEGA TIVE FOR INTRAEPITHELIAL LESION OR MALIGNANCY. Performed By: #### L 7000.1800, L7400.0353, .2199 #### [facility] [address] [place], [place], [address] HPV RFLX Comment Normal . [facility] Comment on above: Order Comment: Speci men Comment: [id number] Specimen Comment: Source.............Cervix;Endocervix Specimen Comment: Other.............. Specimen Comment: No. of containers..01 ThinPrep Vial Result Comment: The HPV DNA reflex criteria were not met with this specimen result therefore, no HPV testing was performed. Performed at: - [facility] [address] [id number] Rn Staffing: Hitesh Tinajero MD, Phone: [phone] Performed at: - [address] [id number] Rn Staffing: Homa Rowell MD, Phone: [phone] Performed By: #### L 7000.1800, L7400.0353, .0 #### [facility] [address] [place], [place], [address] PAPSMR Comment Normal . [facility] Comment on above: Order Comment: Speci men Comment: [id number] Specimen Comment: Source.............Cervix;Endocervix Specimen Comment: Other.............. Specimen [...] By: #### L 7000.1800, L7400.0353, M100.2200 #### [facility] [address] [place], [address] PERFORM Comment Normal . [facility] Comment on above: Order Comment: Speci men Comment: [id number] Specimen Comment: Source.............Cervix;Endocervix Specimen Comment: Other.............. Specimen Comment: No. of containers..01 ThinPrep Vial Result Comment: Siria To Barrel Washer (ASCP) Performed By: #### L 7000.1800, L7400.0353, M100.2200 #### [facility] [address] [place], [address] Chlamydia/GC LISA aptimaon CHLAMY,NUC ACID Negative Normal Negative [facility] Comment on above: Performed By: #### L 7000.1800, L7400.0353, M100.2200 #### [facility] [address] [place], [address] GC BY NUC ACID Negative Normal Negative [facility] Comment on above: Result Comment: Perf ormed at: =G - [facility] [id number] Rn Staffing: Homa Rowell MD, Phone: [phone] Performed By: #### L 7000.1800, L7400.0353, M100.2200 #### [facility] [address] [place], [address] Urine Cultureon 03-19-2024 URC Below infection level. Mixed Gram Positive Organisms [place] Count <1000 MIXC Mixed contaminants. Submit a new specimen if indicated. Normal [facility] Comment on above: Performed By: #### L 7000.1800, L7400.0353, M100.2200 #### [facility] [address] [place], [address] Cervical or vagninal specime n microscopic examination by cytology stain (reported asOrdered By: Holly Ramirez on 03-16-2024 Cytology report Cyto stain Doc (Cvx/Vag) Comment . [facility] Comment on above: The Pap smear [...] rRNA LISA+probe Ql (Unsp spec) Negative Negative [facility] - CytologyOrdered By: Holly Ramirez on 03-16-2024 Diesel Technician Mechanic Cyto stain Nom (Cvx/Vag) [ID] Comment . [facility] Comment on above: Bobby Hartman chnologist (ASCP) Laboratory - Miscellaneous t estsOrdered By: Holly Ramirez on 03-16-2024 Service comment (Unsp spec) [Interp] . . [facility] Neisseria gonorrhoeae nuclei c acid detection by amplified probe techniqueOrdered By: Holly Ramirez on 03-16-2024 N. gonorrhoeae DNA LISA+probe Ql (Unsp spec) Negative Negative [facility] Comment on above: Performed at: =[address] [id number] Director: Homa Rowell MD, Phone: [phone] No Panel InformationOrdered By: Holly Ramirez on 03-16-2024 Pap Smear Specimen Adequacy Comment . [facility] Comment on above: Satisfactory for mendez luation. No endocervical component is identified.An endocervical component is not commonly seen in the patient. Supervisor Policy Change Clerks Office Visit Reporton 03-16-2024 Supervisor Policy Change Clerks Office Visit Report [facility] [address], [address] [place] [address] OFFICE VISIT Date of Service: 03/16/24 MR#: [id number] Acct: [id number] Name: JERMAIN GERARD Rep #: [id number] : 2000 Provider: Dr. 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 Date Name GA/Weeks Outcome Route Bth Weight Gen Labor Lgth Anesthesia Del [facility] Provider FOB 07/14/22 Bora 38 live [...] hCG+: 0 (more content not included)... Normal [facility] Urine cultureOrdered By: Lilly Ramirez on 03-16-2024 Bacteria identified Cx Nom (U) Positive Abnormal [facility] Transvaginal w/Preg USon Transvaginal w/Preg US [facility] [address] [place] [address] Transvaginal w/Preg US MR#: [id number] Acct: [id number] Name: JERMAIN GERARD Rep #: [id number] : 2000 F 23 From: Ira Li MD PCP: Care Physician,No Primary Status: REG CLI Study: Transvaginal w/Preg US Date of Exam: 03/05/24 Exam# [id number] Ordering Dr: Linh Obregon PIANO TEACHER PIANO TEACHER -C [id number] INDICATION: viability, dating EXAMINATION: Ultrasound US OB [...] Laya Pugh MD; No Primary Care Physician Tacker Elastic Band: Signed Normal [facility] hCG Titer Quant., Serumon HCG QUANT. 67043 mIU/mL [address] Comment on above: Result Comment: hCG levels with Gestational Age Gestational Age hCG mIU/mL (IU/L) 0.2 - 1 week 5 - 50 1-2 weeks 50 - 500 2-3 weeks 100 - 5000 3-4 weeks 500 - 55563 4-5 weeks 1000 - 69016 5-6 weeks 99366 - 100,000 6-8 weeks 46757 - 200,000 2-3 months 09285 - 100,000 Performed By: #### L 700.8000 ####[facility] [id number] [place], [place], [address] hCG Titer Quant., Serumon HCG QUANT. 5287 mIU/mL [address] Comment on above: Result Comment: hCG levels with Gestational Age Gestational Age hCG mIU/mL (IU/L) 0.2 - 1 week 5 - 50 1-2 weeks 50 - 500 2-3 weeks 100 - 5000 3-4 weeks 500 - 35675 4-5 weeks 1000 - 79221 5-6 weeks 23963 - 100,000 6-8 weeks 86778 - 200,000 2-3 months 46935 - 100,000 Performed By: #### L 700.8000 #### [facility] [address] [place], [place], [id number] hCG Titer Quant., Serumon HCG QUANT. 1012 mIU/mL [address] Comment on above: Result Comment: hCG levels with Gestational Age Gestational Age hCG mIU/mL (IU/L) 0.2 - 1 week 5 - 50 1-2 weeks 50 - 500 2-3 weeks 100 - 5000 3-4 weeks 500 - 07528 4-5 weeks 1000 - 12750 5-6 weeks 09378 - 100,000 6-8 weeks 09291 - 200,000 2-3 months 92755 - 100,000 Performed By: #### L 700.8000 ####[facility] [id number] [place], [address] hCG Titer Quant., Serumon HCG QUANT. 559 mIU/mL High 1-3 [facility] Comment on above: Result Comment: hCG levels with Gestational Age Gestational Age hCG mIU/mL (IU/L) 0.2 - 1 week 5 - 50 1-2 weeks 50 - 500 2-3 weeks 100 - 5000 3-4 weeks 500 - 59013 4-5 weeks 1000 - 74457 5-6 weeks 04927 - 100,000 6-8 weeks 12842 - 200,000 2-3 months 23524 - 100,000 Performed By: #### L 700.8000 ####[facility] [address] [place], [address] Basophil percentageOrdered B y: Fernando Shirley on 06-17-2023 Basophil percentage 0-5 SEEN /hpf 0-5 [facility] Bilirubin Test strip Ql (U)O rdered By: Fernando Shirley on 06-17-2023 Bilirubin Ql (U) Negative Negative [facility] Ketones Test strip Ql (U)Ord ered By: Fernando Shirley on 06-17-2023 Ketones Ql (U) Negative Negative [facility] Mucus LM Ql (Urine sed)Order ed By: Fernando Shirley on 06-17-2023 Mucus Ql (Urine sed) 0 SEEN /hpf [facility] Nitrite Test strip Ql (U)Ord ered By: Fernando Shirley on 06-17-2023 Nitrite Ql (U) Negative Negative [facility] No Panel InformationOrdered By: Fernando Shirley on 06-17-2023 Urine RBC > 100 SEEN /hpf 0-5 [facility] Protein Test strip Ql (U)Ord ered By: Fernando Shirley on 06-17-2023 Protein Ql (U) 100 mg/dl Negative [facility] Serum or plasma choriogonado tropin detectionOrdered By: Fernando Shirley on 06-17-2023 HCG ( test) Ql 1873 mIU/mL <4 [facility] Comment on above: hCG levels with Gest ational AgeGestational Age hCG mIU/mL (IU/L)0.2 - 1 week 5 - 501-2 weeks 50 - 5002-3 weeks 100 - 27269-8 weeks 500 - 099093-1 weeks 1000 - 274051-5 weeks 44349 - 100,0006-8 weeks 31283 - 200,0002-3 months 58776 - 100,000 Squamous epithelial cells de tection in urine sediment by light microscopyOrdered By: Fernando Shirley on 06-17-2023 Epithelial cells.squamous LM Ql (Urine sed) 0 SEEN /hpf 06-16 [facility] Urine blood detectionOrdered By: Fernando Shirley on 06-17-2023 RBC Ql (U) 250 /ul Negative [facility] Urine clarityOrdered By: Wilber Shirley on 06-17-2023 Clarity (U) Cloudy Clear [facility] Urine color determinationOrd ered By: Fernando Shirley on 06-17-2023 Color (U) Red Yellow [facility] Urine glucose detectionOrder ed By: Fernando Shirley on 06-17-2023 Glucose Ql (U) Normal mg/dl Normal [facility] Urine leukocyte esterase det ection by dipstickOrdered By: Fernando Shirley on 06-17-2023 Leukocyte esterase Test strip Ql (U) 25 /ul Negative [facility] Urine pHOrdered By: Fernando Shirley on 06-17-2023 pH (U) 7.0 [pH] 5.0 - 8.0 [facility] Urine sediment bacteria coun t by microscopy (number/high power field)Ordered By: Fernando Shirley on 06-17-2023 Bacteria LM.HPF (Urine sed) [#/Area] RARE /hpf None Seen [facility] Urine specific gravity measu rementOrdered By: Fernando Shirley on 06-17-2023 Specific gravity (U) [Rel density] 1.015 1.002-1.030 [facility] Urine urobilinogen measureme ntOrdered By: Fernando Shirley on 06-17-2023 Urobilinogen Ql (U) Normal mg/dl Normal [facility] .GFRon 07-17-2022 GFR >60 Normal [facility] [place] Comment on above: Result Comment: GFR Population [...] meters Performed By: #### L AC #### [address] [address] GFR Non- >60 Normal [facility] [place] Comment on above: Result Comment: GFR Population [...] meters Performed By: #### L AC #### [address] [address] .Manual Diffon 07-17-2022 Bands 2.0 % Normal 0.0-5.0 [facility] ([place] Comment on above: Performed By: #### L AC #### [address] [address] Basophil %, Manual 0.0 % Normal 0.0-2.5 [facility] ([place]) Comment on above: Performed By: #### L AC #### [address] [address] Basophil, Abs Manual 0.0 10 3/mcL Normal 0.0-0.3 [facility] ([place] Comment on above: Performed By: #### L AC #### [address] [address] Eosinophil %, Manual 1.0 % Normal 0.0-6.0 [facility] ([place] Comment on above: Performed By: #### L AC #### [address] [address] Eosinophil, Abs Manual 0.1 10 3/mcL Normal 0.0-0.7 [facility] ([place] Comment on above: Performed By: #### L AC #### [address] [address] Lymphocyte %, Manual 7.0 % Low 20.0-40.0 [facility] ([place] Comment on above: Performed By: #### L AC #### [address] [address] Lymphocyte, Abs Manual 0.4 10 3/mcL Low 0.9-4.3 [facility] [place] Comment on above: Performed By: #### L AC #### [address] [address] Metamyelocyte 5.0 % Normal [facility] [place] Comment on above: Performed By: #### L AC #### [place] [id number] Monocyte %, Manual 6.0 % Normal 2.0-13.0 [facility] ([place] Comment on above: Performed By: #### L AC #### [address] [address] Monocyte, Abs Manual 0.3 10 3/mcL Normal 0.1-1.4 [facility] ([place] Comment on above: Performed By: #### L AC #### [place] [id number] Neutrophil %, Manual 79.0 % High 50.0-75.0 [facility] ([place] Comment on above: Performed By: #### L AC #### [address] [address] Neutrophil, Abs Manual 4.7 10 3/mcL Normal 2.3-8.1 [facility] ([place] Comment on above: Performed By: #### L AC #### [place] [id number] Nucleated RBC 0.0 /100 WBC Normal [facility] [place] Comment on above: Performed By: #### L AC #### [place] [address] .Morphon 07-17-2022 Platelet Estimate Normal Normal [facility] [place] Comment on above: Performed By: #### L AC #### [place] [address] RBC morphology finding Nom (Bld) See Below Normal [facility] [place] Comment on above: Result Comment: RBC Morphology appears Normal Performed By: #### L AC #### [place] [id number] BMPon 07-17-2022 BUN/Creatinine Ratio 11.8 ratio Normal 10.0-22.0 [facility] ([place] Comment on above: Performed By: #### Cadence Hirsch UAMIC #### [place] [address] Calcium [Mass/Vol] 8.2 mg/dL Low 8.7-10.4 [facility] ([place] Comment on above: Performed By: #### Cadence Hirsch UAMIC #### [place] [id number] Chloride [Moles/Vol] 108 mmol/L Normal 98-110 [facility] ([place] Comment on above: Performed By: #### U Joycelyn UAMIC #### [place] [id number] CO2 [Moles/Vol] 26 mmol/L Normal 22-32 [facility] ([place] Comment on above: Performed By: #### U Joycelyn UAMIC #### [place] [address] Creatinine [Mass/Vol] 0.51 mg/dL Normal 0.50-1.20 [facility] ([place] Comment on above: Performed By: #### U A UAMIC #### [address] [address] Electrolyte Balance 8.0 mEq/L Normal 4.0-15.0 [facility] ([place] Comment on above: Performed By: #### U A, UAMIC #### [address] [address] Glucose [Mass/Vol] 91 mg/dL Normal 70-110 [facility] ([place] Comment on above: Performed By: #### U A, UAMIC #### [place] [id number] Potassium [Moles/Vol] 3.5 mmol/L Normal 3.5-5.0 [facility] ([place] Comment on above: Result Comment: Spec imen slightly hemolyzed. Performed By: #### U A UAMIC #### [place] [id number] Sodium [Moles/Vol] 142 mmol/L Normal 136-145 [facility] ([place] Comment on above: Performed By: #### U Joycelyn UAMIC #### [place] [id number] Urea nitrogen [Mass/Vol] 6.0 mg/dL Low 8.0-22.0 [facility] [place] Comment on above: Performed By: #### U A UAMIC #### [address] [address] CBCon 07-17-2022 Erythrocyte distribution width (RBC) [Ratio] 13.3 % Normal 11.5-15.5 [facility] [place] Comment on above: Performed By: #### L AC #### [address] [address] Hematocrit (Bld) [Volume fraction] 24.8 % Low 34.0-46.0 [facility] [place] Comment on above: Performed By: #### L AC #### [address] [address] Hgb 8.6 G/dL Low 12.0-16.0 [facility] [place] Comment on above: Performed By: #### L AC #### [place] [address] MCH (RBC) [Entitic mass] 32.2 pg Normal 27.0-33.0 [facility] [place] Comment on above: Performed By: #### L AC #### [place] [address] MCHC 34.7 G/dL Normal 32.0-36.0 [facility] [place] Comment on above: Performed By: #### L AC #### [place] [address] MCV (RBC) [Entitic vol] 92.8 fL Normal 80.0-99.0 [facility] ([place]) Comment on above: Performed By: #### L AC #### [place] [address] Platelet 211 10 3/mcL Normal 150-450 [facility] [place] Comment on above: Performed By: #### L AC #### [place] [address] Platelet mean volume (Bld) [Entitic vol] 8.2 fL Normal 6.6-10.5 [facility] ([place] Comment on above: Performed By: #### L AC #### [place] [address] RBC 2.67 10 6/mcL Low 4.10-5.30 [facility] ([place] Comment on above: Performed By: #### L AC #### [place] [address] WBC 5.9 10 3/mcL Normal 4.5-10.8 [facility] ([place] Comment on above: Performed By: #### L AC #### [place] [address] LABORATORYOrdered By: SYSTEM SYSTEM on 07-17-2022 Band [...] Basophil, Absolute 0.0 10 3/mcL Normal 0.0-0.3 [facility] ([place] Comment on above: Performed By: #### T ABHI #### [address] [address] Basophils/100 WBC (Bld) 0.2 % Normal 0.0-2.5 [facility] ([place] Comment on above: Performed By: #### T ABHI #### [address] [address] Eosinophil, Absolute 0.0 10 3/mcL Normal 0.0-0.7 [facility] ([place] Comment on above: Performed By: #### T ABHI #### [address] [address] Eosinophils/100 WBC (Bld) 0.4 % Normal 0.0-6.0 [facility] [place] Comment on above: Performed By: #### T ABHI #### [address] [address] Lymphocyte, Absolute 0.8 10 3/mcL Low 0.9-4.3 [facility] ([place] Comment on above: Performed By: #### T ABHI #### [address] [address] Lymphocytes/100 WBC (Bld) 6.8 % Low 20.0-40.0 [facility] ([place]) Comment on above: Performed By: #### T ABHI #### [address] [address] Monocyte, Absolute 0.4 10 3/mcL Normal 0.1-1.4 [facility] ([place] Comment on above: Performed By: #### T ABHI #### [address] [address] Monocytes/100 WBC (Bld) 3.6 % Normal 2.0-13.0 [facility] ([place] Comment on above: Performed By: #### T [facility] #### [address] [address] Neutrophils/100 WBC (Bld) 89.0 % High 50.0-75.0 [facility] ([place] Comment on above: Performed By: #### T [facility] #### [address] [address] .GFRon 07-16-2022 GFR Non- >60 Normal [facility] [place] Comment on above: Result Comment: GFR Population [...] Performed By: #### U A UAMIC #### [address] [address] GFR >60 Normal [facility] ([place] Comment on above: Result Comment: GFR Population [...] Performed By: #### U A, UAMIC #### [address] [address] .NEUABSon 07-16-2022 Neutrophil, Absolute 9.8 10 3/mcL High 2.3-8.1 [facility] ([place] Comment on above: Performed By: #### U MAYTE Hirsch #### [address] [address] CBCon 07-16-2022 Erythrocyte distribution width (RBC) [Ratio] 13.1 % Normal 11.5-15.5 [facility] ([place] Comment on above: Performed By: #### T ABHI #### [place] [id number] Hematocrit (Bld) [Volume fraction] 24.8 % Low 34.0-46.0 [facility] [place] Comment on above: Performed By: #### T ABHI #### [place] [address] Hgb 8.5 G/dL Low 12.0-16.0 [facility] [place] Comment on above: Performed By: #### T ABHI #### [address] [address] MCH (RBC) [Entitic mass] 31.8 pg Normal 27.0-33.0 [facility] [place] Comment on above: Performed By: #### T ABHI #### [place] [address] MCHC 34.3 G/dL Normal 32.0-36.0 [facility] [place] Comment on above: Performed By: #### T ABHI #### [place] [id number] MCV (RBC) [Entitic vol] 92.5 fL Normal 80.0-99.0 A [facility] ([place] Comment on above: Performed By: #### T ABHI #### [place] [id number] Platelet 192 10 3/mcL Normal 150-450 [facility] [place] Comment on above: Performed By: #### T ABHI #### [place] [id number] Platelet mean volume (Bld) [Entitic vol] 8.2 fL Normal 6.6-10.5 [facility] [place] Comment on above: Performed By: #### T ABHI #### [place] [id number] RBC 2.68 10 6/mcL Low 4.10-5.30 [facility] ([place] Comment on above: Performed By: #### T ABHI #### [place] [address] WBC 11.0 10 3/mcL High 4.5-10.8 [facility] [place] Comment on above: Performed By: #### T ABHI #### [place] [address] CMPon 07-16-2022 Albumin Level 1.5 G/dL Low 3.2-4.8 [facility] ([place] Comment on above: Performed By: #### MAYTE Arshad #### [place] [address] Albumin/Globulin [Mass ratio] 0.5 {ratio} Low 0.9-1.6 [facility] ([place] Comment on above: Performed By: #### MAYTE Arshad #### [place] [id number] ALP [Catalytic activity/Vol] 80 U/L Normal 38-126 [facility] [place] Comment on above: Performed By: #### MAYTE Arshad #### [place] [id number] ALT [Catalytic activity/Vol] 10 U/L Normal 10-49 [facility] [place] Comment on above: Performed By: #### MAYTE Arshad #### [place] [id number] AST [Catalytic activity/Vol] 17 U/L Normal 8-34 [facility] [place] Comment on above: Performed By: #### MAYTE Arshad #### [place] [address] Bili Total 0.20 mg/dL Normal 0.20-1.20 [facility] [place] Comment on above: Result Comment: Use of this assay is not recommended for patients undergoing treatment with eltrombopag due to the potential for falsely elevated results. Performed By: #### U Joycelyn UAMIC #### [address] [address] BUN/Creatinine Ratio 12.3 ratio Normal 10.0-22.0 [facility] ([place] Comment on above: Performed By: #### Cadence Hirsch UAMIC #### [address] [address] Calcium [Mass/Vol] 7.9 mg/dL Low 8.7-10.4 [facility] ([place] Comment on above: Performed By: #### Cadence Hirsch UAMIC #### [address] [address] Chloride [Moles/Vol] 110 mmol/L Normal 98-110 [facility] ([place] Comment on above: Performed By: #### Cadence Hirsch UAMIC #### [address] [address] CO2 [Moles/Vol] 26 mmol/L Normal 22-32 [facility] [place] Comment on above: Performed By: #### Cadence Hirsch UAMIC #### [address] [address] Creatinine [Mass/Vol] 0.57 mg/dL Normal 0.50-1.20 [facility] ([place] Comment on above: Performed By: #### U Joycelyn UAMIC #### [address] [address] Electrolyte Balance 8.0 mEq/L Normal 4.0-15.0 [facility] ([place] Comment on above: Performed By: #### U Joycelyn UAMIC #### [address] [address] Globulin 2.8 G/dL Normal 1.5-3.8 [facility] ([place] Comment on above: Performed By: #### U Joycelyn UAMIC #### [address] [address] Glucose [Mass/Vol] 84 mg/dL Normal 70-110 [facility] ([place] Comment on above: Performed By: #### U A UAMIC #### [address] [address] Potassium [Moles/Vol] 3.7 mmol/L Normal 3.5-5.0 [facility] ([place] Comment on above: Performed By: #### U A, UAMIC #### [address] [address] Sodium [Moles/Vol] 144 mmol/L Normal 136-145 [facility] ([place] Comment on above: Performed By: #### U Joycelyn UAMIC #### [address] [address] Total Protein 4.3 G/dL Low 5.7-8.2 [facility] ([place] Comment on above: Result Comment: No te - New Reference Range in effect 19 Performed By: #### U A UAMIC #### [address] [address] Urea nitrogen [Mass/Vol] 7.0 mg/dL Low 8.0-22.0 [facility] [place] Comment on above: Performed By: #### U Joycelyn UAMIC #### [address] [address] LABORATORYOrdered By: SYSTEM SYSTEM on 07-16-2022 Albumin [...] Basophil, Absolute 0.0 10 3/mcL Normal 0.0-0.3 [facility] ([place] Comment on above: Performed By: #### L AC #### [address] [address] Basophils/100 WBC (Bld) 0.1 % Normal 0.0-2.5 [facility] ([place]) Comment on above: Performed By: #### L AC #### [address] [address] Eosinophil, Absolute 0.0 10 3/mcL Normal 0.0-0.7 [facility] ([place]) Comment on above: Performed By: #### L AC #### [address] [address] Eosinophils/100 WBC (Bld) 0.1 % Normal 0.0-6.0 [facility] ([place] Comment on above: Performed By: #### L AC #### [address] [address] Lymphocyte, Absolute 0.6 10 3/mcL Low 0.9-4.3 [facility] ([place]) Comment on above: Performed By: #### L AC #### [address] [address] Lymphocytes/100 WBC (Bld) 2.9 % Low 20.0-40.0 [facility] ([place] Comment on above: Performed By: #### L AC #### [address] [address] Monocyte, Absolute 1.0 10 3/mcL Normal 0.1-1.4 [facility] ([place] Comment on above: Performed By: #### L AC #### [address] [address] Monocytes/100 WBC (Bld) 4.4 % Normal 2.0-13.0 [facility] ([place]) Comment on above: Performed By: #### L AC #### [address] [address] Neutrophils/100 WBC (Bld) 92.5 % High 50.0-75.0 [facility] ([place] Comment on above: Performed By: #### L #### [address] [address] .GFRon 07-15-2022 GFR Non- >60 Normal [facility] [place] Comment on above: Result Comment: GFR Population [...] meters Performed By: #### T ABHI #### [address] [address] GFR >60 Normal [facility] ([place] Comment on above: Result Comment: GFR Population [...] meters Performed By: #### T JARRED #### [address] [address] GFR Non- >60 Normal [facility] [place] Comment on above: Result Comment: GFR Population [...] meters Performed By: #### MAYTE Arshad #### [place] [address] GFR >60 Normal [facility] [place] Comment on above: Result Comment: GFR Population [...] meters Performed By: #### MAYTE Arshad #### [address] [address] .Manual Diffon 07-15-2022 Bands 1.0 % Normal 0.0-5.0 [facility] ([place] Comment on above: Performed By: #### T ABHI #### [address] [address] Basophil %, Manual 0.0 % Normal 0.0-2.5 [facility] ([place] Comment on above: Performed By: #### T ABHI #### [place] [id number] Basophil, Abs Manual 0.0 10 3/mcL Normal 0.0-0.3 [facility] ([place] Comment on above: Performed By: #### T ABHI #### [address] [address] Eosinophil %, Manual 0.0 % Normal 0.0-6.0 [facility] ([place] Comment on above: Performed By: #### T ROPANKUR #### [address] [address] Eosinophil, Abs Manual 0.0 10 3/mcL Normal 0.0-0.7 [facility] ([place] Comment on above: Performed By: #### T ROPANKUR #### [address] [address] Lymphocyte %, Manual 5.0 % Low 20.0-40.0 [facility] ([place] Comment on above: Performed By: #### T ROPANKUR #### [address] [address] Lymphocyte, Abs Manual 1.1 10 3/mcL Normal 0.9-4.3 [facility] ([place] Comment on above: Performed By: #### T ROPANKUR #### [address] [address] Monocyte %, Manual 2.0 % Normal 2.0-13.0 [facility] ([place] Comment on above: Performed By: #### T ROPANKUR #### [address] [address] Monocyte, Abs Manual 0.4 10 3/mcL Normal 0.1-1.4 [facility] ([place] Comment on above: Performed By: #### T ROPANKUR #### [address] [address] Neutrophil %, Manual 92.0 % High 50.0-75.0 [facility] ([place] Comment on above: Performed By: #### T ROPHS #### [address] [address] Neutrophil, Abs Manual 20.2 10 3/mcL High 2.3-8.1 [facility] ([place] Comment on above: Performed By: #### T ROPANKUR #### [address] [address] Nucleated RBC 0.0 /100 WBC Normal [facility] [place] Comment on above: Performed By: #### T ROPHS #### [address] [address] Bands 2.0 % Normal 0.0-5.0 [facility] [place] Comment on above: Performed By: #### U Joycelyn UAMIC #### [address] [address] Basophil %, Manual 0.0 % Normal 0.0-2.5 [facility] ([place] Comment on above: Performed By: #### U A UAMIC #### [address] [address] Basophil, Abs Manual 0.0 10 3/mcL Normal 0.0-0.3 [facility] ([place] Comment on above: Performed By: #### Cadence Hirsch UAMIC #### [address] [address] Eosinophil %, Manual 0.0 % Normal 0.0-6.0 [facility] ([place] Comment on above: Performed By: #### Cadence Hirsch UAMIC #### [address] [address] Eosinophil, Abs Manual 0.0 10 3/mcL Normal 0.0-0.7 [facility] ([place] Comment on above: Performed By: #### Cadence Hirsch UAMIC #### [address] [address] Lymphocyte %, Manual 3.0 % Low 20.0-40.0 [facility] ([place] Comment on above: Performed By: #### U Joycelyn UAMIC #### [address] [address] Lymphocyte, Abs Manual 0.7 10 3/mcL Low 0.9-4.3 [facility] ([place] Comment on above: Performed By: #### U A, UAMIC #### [address] [address] Monocyte %, Manual 3.0 % Normal 2.0-13.0 [facility] ([place]) Comment on above: Performed By: #### Cadence Hirsch UAMIC #### [address] [address] Monocyte, Abs Manual 0.7 10 3/mcL Normal 0.1-1.4 [facility] ([place]) Comment on above: Performed By: #### MAYTE Arshad #### [place] [address] Neutrophil %, Manual 92.0 % High 50.0-75.0 [facility] ([place]) Comment on above: Performed By: #### WILBER ArshadMIC #### [place] [address] Neutrophil, Abs Manual 20.9 10 3/mcL High 2.3-8.1 [facility] ([place]) Comment on above: Performed By: #### MAYTE Arshad #### [place] [address] Nucleated RBC 0.0 /100 WBC Normal [facility] ([place] Comment on above: Performed By: #### MAYTE Arshad #### [place] [address] .Morphon 07-15-2022 Platelet Estimate Normal Normal [facility] ([place] Comment on above: Performed By: #### T ABHI #### [place] [address] RBC morphology finding Nom (Bld) See Below Normal [facility] ([place] Comment on above: Result Comment: RBC Morphology appears Normal Performed By: #### T ABHI #### [place] [address] Platelet Clumps Few Normal [facility] ([place] Comment on above: Performed By: #### MAYTE Arshad #### [place] [address] Poik 1+ Normal [facility] ([place] Comment on above: Performed By: #### MAYTE Arshad #### [place] [address] Tear Cell 1+ Normal [facility] ([place] Comment on above: Performed By: #### MAYTE Arshad #### [place] [address] Platelet Estimate Normal Normal [facility] ([place] Comment on above: Performed By: #### U A, UAMIC #### [place] [address] Platelet Estimate Normal Normal [facility] ([place] Comment on above: Performed By: #### L AC #### [place] [address] RBC morphology finding Nom (Bld) Normal [facility] ([place] Comment on above: Result Comment: See Below RBC Morphology appears Normal See Below RBC Morphology appears Normal Performed By: #### L AC #### [place] [address] .NEUABSon 07-15-2022 Neutrophil, Absolute 20.0 10 3/mcL High 2.3-8.1 A [facility] ([place]) Comment on above: Performed By: #### L AC #### [place] [address] CBCon 07-15-2022 Erythrocyte distribution width (RBC) [Ratio] 13.2 % Normal 11.5-15.5 [facility] ([place]) Comment on above: Performed By: #### G FR, CMP, DIFF, CBC, MORPH #### [place] [address] Hematocrit (Bld) [Volume fraction] 26.5 % Low 34.0-46.0 [facility] ([place] Comment on above: Performed By: #### G FR, CMP, DIFF, CBC, MORPH #### [place] [address] Hgb 9.0 G/dL Low 12.0-16.0 [facility] ([place] Comment on above: Performed By: #### G FR, CMP, DIFF, CBC, MORPH #### [place] [address] MCH (RBC) [Entitic mass] 31.3 pg Normal 27.0-33.0 [facility] ([place] Comment on above: Performed By: #### G FR, CMP, DIFF, CBC, MORPH #### [place] [address] MCHC 33.8 G/dL Normal 32.0-36.0 [facility] ([place] Comment on above: Performed By: #### G FR, CMP, DIFF, CBC, MORPH #### [place] [id number] MCV (RBC) [Entitic vol] 92.8 fL Normal 80.0-99.0 A [facility] ([place] Comment on above: Performed By: #### G FR, CMP, DIFF, CBC, MORPH #### [place] [address] Platelet 211 10 3/mcL Normal 150-450 [facility] ([place] Comment on above: Performed By: #### G FR, CMP, DIFF, CBC, MORPH #### [place] [address] Platelet mean volume (Bld) [Entitic vol] 7.9 fL Normal 6.6-10.5 [facility] ([place] Comment on above: Performed By: #### G FR, CMP, DIFF, CBC, MORPH #### [place] [address] RBC 2.86 10 6/mcL Low 4.10-5.30 [facility] ([place] Comment on above: Performed By: #### G FR, CMP, DIFF, CBC, MORPH #### [place] [id number] WBC 21.9 10 3/mcL High 4.5-10.8 [facility] ([place] Comment on above: Performed By: #### G FR, CMP, DIFF, CBC, MORPH #### [place] [address] Erythrocyte distribution width (RBC) [Ratio] 13.6 % Normal 11.5-15.5 [facility] ([place] Comment on above: Performed By: #### U A UAMIC #### [place] [id number] Hematocrit (Bld) [Volume fraction] 29.7 % Low 34.0-46.0 [facility] ([place] Comment on above: Performed By: #### Cadence Hirsch UAMIC #### [address] [address] Hgb 10.1 G/dL Low 12.0-16.0 [facility] ([place] Comment on above: Performed By: #### Cadence Hirsch UAMIC #### [address] [address] MCH (RBC) [Entitic mass] 31.5 pg Normal 27.0-33.0 [facility] ([place] Comment on above: Performed By: #### Cadence Hirsch UAMIC #### [address] [address] MCHC 34.1 G/dL Normal 32.0-36.0 [facility] ([place] Comment on above: Performed By: #### Cadence Hirsch UAMIC #### [place] [id number] MCV (RBC) [Entitic vol] 92.6 fL Normal 80.0-99.0 A [facility] ([place] Comment on above: Performed By: #### Cadence Hirsch UAMIC #### [address] [address] Platelet 223 10 3/mcL Normal 150-450 [facility] ([place] Comment on above: Performed By: #### Cadence Hirsch UAMIC #### [address] [address] Platelet mean volume (Bld) [Entitic vol] 8.3 fL Normal 6.6-10.5 [facility] ([place] Comment on above: Performed By: #### Cadence Hirsch UAMIC #### [address] [address] RBC 3.21 10 6/mcL Low 4.10-5.30 [facility] ([place] Comment on above: Performed By: #### Cadence Hirsch UAMIC #### [address] [address] WBC 22.7 10 3/mcL High 4.5-10.8 [facility] ([place] Comment on above: Performed By: #### WILBER ArshadMIC #### [address] [address] Erythrocyte distribution width (RBC) [Ratio] 13.4 % Normal 11.5-15.5 [facility] ([place] Comment on above: Performed By: #### L AC #### [place] [address] Hematocrit (Bld) [Volume fraction] 28.2 % Low 34.0-46.0 [facility] ([place] Comment on above: Performed By: #### L AC #### [place] [address] Hgb 9.6 G/dL Low 12.0-16.0 [facility] ([place] Comment on above: Performed By: #### L AC #### [place] [address] MCH (RBC) [Entitic mass] 31.9 pg Normal 27.0-33.0 [facility] ([place] Comment on above: Performed By: #### L AC #### [place] [address] MCHC 34.1 G/dL Normal 32.0-36.0 [facility] ([place]) Comment on above: Performed By: #### L AC #### [place] [id number] MCV (RBC) [Entitic vol] 93.6 fL Normal 80.0-99.0 A [facility] ([place] Comment on above: Performed By: #### L AC #### [place] [id number] Platelet 196 10 3/mcL Normal 150-450 [facility] ([place] Comment on above: Performed By: #### L AC #### [place] [id number] Platelet mean volume (Bld) [Entitic vol] 8.3 fL Normal 6.6-10.5 [facility] ([place] Comment on above: Performed By: #### L AC #### [place] [id number] RBC 3.02 10 6/mcL Low 4.10-5.30 [facility] ([place]) Comment on above: Performed By: #### L AC #### [address] [address] WBC 21.6 10 3/mcL High 4.5-10.8 [facility] ([place] Comment on above: Performed By: #### L AC #### [address] [address] CMPon 07-15-2022 Albumin Level 1.8 G/dL Low 3.2-4.8 [facility] ([place] Comment on above: Performed By: #### G FR, CMP, DIFF, CBC, MORPH #### [address] [address] Albumin/Globulin [Mass ratio] 0.6 {ratio} Low 0.9-1.6 [facility] ([place] Comment on above: Performed By: #### G FR, CMP, DIFF, CBC, MORPH #### [place] [address] ALP [Catalytic activity/Vol] 90 U/L Normal 38-126 [facility] ([place] Comment on above: Performed By: #### G FR, CMP, DIFF, CBC, MORPH #### [place] [address] ALT [Catalytic activity/Vol] 13 U/L Normal 10-49 [facility] ([place] Comment on above: Performed By: #### G FR, CMP, DIFF, CBC, MORPH #### [place] [id number] AST [Catalytic activity/Vol] 19 U/L Normal 8-34 [facility] ([place] Comment on above: Performed By: #### G FR, CMP, DIFF, CBC, MORPH #### [place] [id number] Bili Total 0.30 mg/dL Normal 0.20-1.20 [facility] ([place]) Comment on above: Result Comment: Use of this assay is not recommended for patients undergoing treatment with eltrombopag due to the potential for falsely elevated results. Performed By: #### G FR, CMP, DIFF, CBC, MORPH #### [address] [address] BUN/Creatinine Ratio 14.3 ratio Normal 10.0-22.0 [facility] ([place]) Comment on above: Performed By: #### G FR, CMP, DIFF, CBC, MORPH #### [address] [address] Calcium [Mass/Vol] 8.0 mg/dL Low 8.7-10.4 [facility] ([place]) Comment on above: Performed By: #### G FR, CMP, DIFF, CBC, MORPH #### [address] [address] Chloride [Moles/Vol] 105 mmol/L Normal 98-110 [facility] ([place]) Comment on above: Performed By: #### G FR, CMP, DIFF, CBC, MORPH #### [place] [id number] CO2 [Moles/Vol] 23 mmol/L Normal 22-32 [facility] ([place] Comment on above: Performed By: #### G FR, CMP, DIFF, CBC, MORPH #### [address] [address] Creatinine [Mass/Vol] 0.63 mg/dL Normal 0.50-1.20 [facility] ([place]) Comment on above: Performed By: #### G FR, CMP, DIFF, CBC, MORPH #### [address] [address] Electrolyte Balance 9.0 mEq/L Normal 4.0-15.0 [facility] ([place]) Comment on above: Performed By: #### G FR, CMP, DIFF, CBC, MORPH #### [address] [address] Globulin 3.1 G/dL Normal 1.5-3.8 [facility] ([place]) Comment on above: Performed By: #### G FR, CMP, DIFF, CBC, MORPH #### [address] [address] Glucose [Mass/Vol] 103 mg/dL Normal 70-110 [facility] ([place]) Comment on above: Performed By: #### G FR, CMP, DIFF, CBC, MORPH #### [address] [address] Potassium [Moles/Vol] 3.5 mmol/L Normal 3.5-5.0 [facility] ([place]) Comment on above: Performed By: #### G FR, CMP, DIFF, CBC, MORPH #### [address] [address] Sodium [Moles/Vol] 137 mmol/L Normal 136-145 [facility] ([place]) Comment on above: Performed By: #### G FR, CMP, DIFF, CBC, MORPH #### [address] [address] Total Protein 4.9 G/dL Low 5.7-8.2 [facility] ([place]) Comment on above: Result Comment: No te - New Reference Range in effect 19 Performed By: #### G FR, CMP, DIFF, CBC, MORPH #### [address] [address] Urea nitrogen [Mass/Vol] 9.0 mg/dL Normal 8.0-22.0 [facility] ([place]) Comment on above: Performed By: #### G FR, CMP, DIFF, CBC, MORPH #### [address] [address] Albumin Level 2.1 G/dL Low 3.2-4.8 [facility] ([place] Comment on above: Performed By: #### Cadence Hirsch UAMIC #### [address] [address] Albumin/Globulin [Mass ratio] 0.6 {ratio} Low 0.9-1.6 [facility] ([place] Comment on above: Performed By: #### Cadence Hirsch UAMIC #### [address] [address] ALP [Catalytic activity/Vol] 100 U/L Normal 38-126 [facility] ([place] Comment on above: Performed By: #### Cadence Hirsch UAMIC #### [address] [address] ALT [Catalytic activity/Vol] 17 U/L Normal 10-49 [facility] ([place] Comment on above: Performed By: #### U A UAMIC #### [address] [address] AST [Catalytic activity/Vol] 33 U/L Normal 8-34 [facility] ([place]) Comment on above: Performed By: #### U A, UAMIC #### [address] [address] Bili Total 0.30 mg/dL Normal 0.20-1.20 [facility] ([place]) Comment on above: Result Comment: Use of this assay is not recommended for patients undergoing treatment with eltrombopag due to the potential for falsely elevated results. Performed By: #### U A UAMIC #### [address] [address] BUN/Creatinine Ratio 16.7 ratio Normal 10.0-22.0 [facility] ([place]) Comment on above: Performed By: #### U A UAMIC #### [address] [address] Calcium [Mass/Vol] 8.6 mg/dL Low 8.7-10.4 [facility] ([place]) Comment on above: Performed By: #### U A UAMIC #### [address] [address] Chloride [Moles/Vol] 103 mmol/L Normal 98-110 [facility] ([place]) Comment on above: Performed By: #### U A, UAMIC #### [address] [address] CO2 [Moles/Vol] 24 mmol/L Normal 22-32 [facility] ([place] Comment on above: Performed By: #### U A, UAMIC #### [address] [address] Creatinine [Mass/Vol] 0.66 mg/dL Normal 0.50-1.20 [facility] ([place]) Comment on above: Performed By: #### U A, UAMIC #### [address] [address] Electrolyte Balance 10.0 mEq/L Normal 4.0-15.0 [facility] ([place]) Comment on above: Performed By: #### U A UAMIC #### [address] [address] Globulin 3.4 G/dL Normal 1.5-3.8 [facility] ([place] Comment on above: Performed By: #### U A, UAMIC #### [address] [address] Glucose [Mass/Vol] 90 mg/dL Normal 70-110 [facility] ([place]) Comment on above: Performed By: #### U Joycelyn UAMIC #### [address] [address] Potassium [Moles/Vol] 3.8 mmol/L Normal 3.5-5.0 [facility] ([place]) Comment on above: Result Comment: Spec imen slightly hemolyzed. Performed By: #### U A UAMIC #### [address] [address] Sodium [Moles/Vol] 137 mmol/L Normal 136-145 [facility] ([place]) Comment on above: Performed By: #### U Joycelyn UAMIC #### [address] [address] Total Protein 5.5 G/dL Low 5.7-8.2 [facility] ([place]) Comment on above: Result Comment: No te - New Reference Range in effect 19 Performed By: #### U A UAMIC #### [address] [address] Urea nitrogen [Mass/Vol] 11.0 mg/dL Normal 8.0-22.0 [facility] ([place]) Comment on above: Performed By: #### U A UAMIC #### [address] [address] [address] ANGIOGRAPHY CHEST W/CONTR Joon 07-15-2022 CT [...] 07/15/2022 12:59:44 PM Ordering Provider: ANGELES MARTINEZ [facility] ([place]) Final Surgical Pathology Rep qiana 07-15-2022 Final Surgical Pathology Report . Pathology Reports Accession: Collected Date/Time: Received Date/Time: Pathologist: [id number] 07/14/2022 03:49 EDT 07/14/2022 07:54 EDT MD [...] with no areas of hemorrhage or lesion. [employer]itting [employer] Operator sections in 3 cassettes. Dictated by KESHAV RHOADES MICROSCOPIC DESCRIPTION: The microscopic examination is performed, except in the case of Gross Only. Electronically Signed by Pathology Report verified by [facility] MORENO WILDER MD Sign out Date: 07/15/2022 16:21 Performing Lab: [facility], [address] [place] [address] [place] [facility] Disclaimer If ancillary studies were utilized, the following Laboratory Developed Test (LDT) disclaimer will apply: Under CLIA requirements, [facility] is qualified to perform high complexity testing. For all ancillary stains, positive and negative controls stain appropriately. Performance characteristics of immunohistochemical and chromogenic in-situ hybridization tests have been determined by [facility]. These tests are used for clinical purposes, They should not be regarded as investigational or for research. Normal [facility] ([place]) LABORATORYOrdered By: Jordin Valente on 07-15-2022 Lactate [Moles/Vol] 1.8 mmol/L Invalid Interpretation Code 0.2 - 2.0 mmol/L Auto Chem SS LABORATORYOrdered By: Brook Valenzuela on 07-15-2022 Natriuretic peptide.B prohormone N-Terminal [Mass/Vol] 194 pg/mL Invalid Interpretation Code 0 - 450 pg/mL Auto Chem SS LABORATORYOrdered By: [employer] on 07-15-2022 Troponin I.cardiac DL <= 0.01 [...] Lactic Acid Lvl 1.8 mmol/L Normal 0.2-2.0 [facility] ([place]) Comment on above: Order Comment: Order ed secondary to Lactic Acid result greater than or equal to 2.0 Performed By: #### U A, UAMIC #### [place] [address] Lactic Acid Lvl 2.3 mmol/L High 0.2-2.0 [facility] ([place]) Comment on above: Performed By: #### L AC #### [place] [address] Lactic Acid Lvl 1.0 mmol/L Normal 0.2-2.0 [facility] ([place]) Comment on above: Order Comment: clott ed talk to debra Performed By: #### U A, UAMIC #### [place] [address] Laboratory - Microbiology an d Antimicrobial susceptibilityOrdered By: [facility] MICROBIOLOGY on 07-15-2022 Bacteria identified Cx Nom (Bld) Culture has been received in lab and is no growth to date. Culture will be held for four weeks. [facility] No Panel Informationon 07-15 Culture Urine No growth at 48 hours. [facility] Work Phone: Microscopic examination of blood, culture Culture has been received in lab and is no growth to date. Routine cultures are held for 5 days. [facility] Work Phone: PBNPon 07-15-2022 Natriuretic peptide B (Bld) [Mass/Vol] 194 pg/mL Normal 0-450 [facility] ([place]) Comment on above: Result Comment: NT-p roBNP results of less than 300 pg/mL effectively rules out acute congestive heart failure with 99% negative predictive value. Performed By: #### U A, UAMIC #### [address] [address] TROPHSon 07-15-2022 Troponin I High Sensitivity 14.91 ng/L Normal 0.00-34.00 [facility] ([place]) Comment on above: Result Comment: If t he High Sensitive Troponin result is below the 99th percentile value (<45 ng/L) at the first blood draw, at least two additional blood samples should be drawn before results are interpreted as negative for AMI. Performed By: #### T ROPHS #### [place] [address] UAon 07-15-2022 Color (U) Yellow Normal [facility] ([place]) Comment on above: Performed By: #### U A, UAMIC #### [place] [id number] Glucose (U) [Mass/Vol] Negative Normal Negative [facility] ([place]) Comment on above: Performed By: #### U A, UAMIC #### [place] [address] Ketones Ql (U) Negative Normal Neg-Trace [facility] ([place] Comment on above: Performed By: #### U A, UAMIC #### [place] [address] UA Appear Clear Normal Clear [facility] ([place] Comment on above: Performed By: #### U A, UAMIC #### [place] [id number] UA Blood Large Abnormal Neg-Trace [facility] ([place]) Comment on above: Performed By: #### U A, UAMIC #### [place] [id number] UA Leuk Est Small Abnormal Negative [facility] ([place] Comment on above: Performed By: #### U A, UAMIC #### [place] [id number] UA Nitrite Negative Normal Negative [facility] ([place] Comment on above: Performed By: #### U A, UAMIC #### [place] [id number] UA pH 5.5 Normal 5.0 - 8.0 [facility] ([place] Comment on above: Performed By: #### U A, UAMIC #### [place] [address] UA Protein Trace Normal Negative [facility] ([place] Comment on above: Performed By: #### U A, UAMIC #### [place] [address] UA Spec Grav 1.010 Normal 1.006-1.029 [facility] ([place] Comment on above: Performed By: #### U A, UAMIC #### [place] [address] UA Specimen Type Clean Catch Normal [facility] ([place] Comment on above: Performed By: #### U A, UAMIC #### [place] [address] UA Urobilinogen 0.2 E.U./dL Normal 0.2-1.0 [facility] ([place] Comment on above: Performed By: #### U A, UAMIC #### [place] [address] Urobilinogen (U) [Mass/Vol] Negative Normal Neg-Trace [facility] ([place] Comment on above: Performed By: #### U A, UAMIC #### [place] [address] UAMICon 07-15-2022 UA Bacteria Trace Abnormal Negative [facility] ([place] Comment on above: Performed By: #### U A, UAMIC #### [place] [address] UA Ghost cells 0-2 Abnormal [facility] ([place] Comment on above: Performed By: #### U A, UAMIC #### [place] [address] UA Glitter cells 0-2 Abnormal [facility] ([place] Comment on above: Performed By: #### U A, UAMIC #### [place] [address] UA RBC 5-10 Abnormal 0-2 [facility] ([place]) Comment on above: Performed By: #### U A, UAMIC #### [facility] [address] [place] [address] UA Squam Epithelial 0-2 Normal 0-20 [facility] ([place]) Comment on above: Performed By: #### U A, UAMIC #### [facility] [address] [place] [address] UA Transitional Epithelial 0-2 Normal [facility] ([place] Comment on above: Performed By: #### U A, UAMIC #### [facility] [address] [place] [address] UA WBC 3-5 Normal 0-5 [facility] ([place] Comment on above: Performed By: #### U A, UAMIC #### [facility] [address] [place] [address] US PELVIS NON-OB COMPLETEon 07-15-2022 US PELVIS [...] 07/15/2022 5:09:33 PM Ordering Provider: CARLITO Bruce [facility] ([place]) CEFEPIME:SUSC:PT:ISOLATE:ORD QN:MICon 07-14-2022 Cefepime MARTINE [Susc] Rare Escherichia col i Few Streptococcus parasanguinis No anaerobes isolated to date. Neisseria gonorrhoeae: Negative Gardnerella vaginalis: Negative Ureaplasma urealyticum: Pending [facility] Work Phone: Cefepime MARTINE [Susc]on 2022 Escherichia coli Escherichia coli [facility] Work Phone: GS 2+ Polymorphonuclear cells 2+ Mononuclear cells Rare Gram Positive Cocci [facility] Work Phone: Streptococcus parasanguinis Streptococcus parasanguinis [facility] Work Phone: RPRon 07-13-2022 Reagin Ab RPR Ql (S) Non-Reactive Normal Non-Reactive [facility] ([place] Comment on above: Result Comment: The RPR [...] Performed By: #### U A UAMIC #### [place] [address] .Auto Diffon 07-12-2022 Basophil, Absolute 0.1 10 3/mcL Normal 0.0-0.3 [facility]) Comment on above: Performed By: #### U A, UAMIC #### [address] [address] Basophils/100 WBC (Bld) 1.0 % Normal 0.0-2.5 A [facility] ([place]) Comment on above: Performed By: #### U A, UAMIC #### [address] [address] Eosinophil, Absolute 0.1 10 3/mcL Normal 0.0-0.7 [facility] ([place]) Comment on above: Performed By: #### U A, UAMIC #### [address] [address] Eosinophils/100 WBC (Bld) 1.2 % Normal 0.0-6.0 [facility] ([place] Comment on above: Performed By: #### U A, UAMIC #### [address] [address] Lymphocyte, Absolute 1.8 10 3/mcL Normal 0.9-4.3 [facility] ([place]) Comment on above: Performed By: #### U A, UAMIC #### [address] [address] Lymphocytes/100 WBC (Bld) 17.4 % Low 20.0-40.0 [facility] ([place]) Comment on above: Performed By: #### U A, UAMIC #### [address] [address] Monocyte, Absolute 0.7 10 3/mcL Normal 0.1-1.4 [facility] ([place]) Comment on above: Performed By: #### U A, UAMIC #### [address] [address] Monocytes/100 WBC (Bld) 7.0 % Normal 2.0-13.0 A [facility] ([place]) Comment on above: Performed By: #### U A, UAMIC #### [address] [address] Neutrophils/100 WBC (Bld) 73.4 % Normal 50.0-75.0 [facility] ([place]) Comment on above: Performed By: #### U Joycelyn UAMIC #### [address] [address] .NEUABSon 07-12-2022 Neutrophil, Absolute 7.5 10 3/mcL Normal 2.3-8.1 [facility] ([place]) Comment on above: Performed By: #### U Joycelyn UAMIC #### [place] [id number] ABO/Rh (Gel)on 07-12-2022 ABO/Rh Interp Positive Invalid Interpretation Code [facility] ([place] Comment on above: Performed By: #### U Joycelyn UAMIC #### [place] [id number] ABS (Gel)on 07-12-2022 ABSC Interp (Gel) Negative Normal [facility] ([place] Comment on above: Performed By: #### Cadence Hirsch UAMIC #### [place] [id number] CBCon 07-12-2022 Erythrocyte distribution width (RBC) [Ratio] 13.2 % Normal 11.5-15.5 [facility] [place] Comment on above: Performed By: #### Cadence Hirsch UAMIC #### [place] [address] Hematocrit (Bld) [Volume fraction] 34.4 % Normal 34.0-46.0 [facility] [place] Comment on above: Performed By: #### Cadence Hirsch UAMIC #### [place] [address] Hgb 11.8 G/dL Low 12.0-16.0 [facility] [place] Comment on above: Performed By: #### U Joycelyn UAMIC #### [place] [id number] MCH (RBC) [Entitic mass] 31.9 pg Normal 27.0-33.0 [facility] [place] Comment on above: Performed By: #### U A UAMIC #### [place] [id number] MCHC 34.4 G/dL Normal 32.0-36.0 [facility] ([place] Comment on above: Performed By: #### U A, UAMIC #### [address] [address] MCV (RBC) [Entitic vol] 92.7 fL Normal 80.0-99.0 A [facility]ly [facility] ([place]) Comment on above: Performed By: #### U A, UAMIC #### [address] [address] Platelet 266 10 3/mcL Normal 150-450 [facility] [place] Comment on above: Performed By: #### U A, UAMIC #### [address] [address] Platelet mean volume (Bld) [Entitic vol] 8.7 fL Normal 6.6-10.5 [facility] ([place] Comment on above: Performed By: #### U A, UAMIC #### [place] [id number] RBC 3.71 10 6/mcL Low 4.10-5.30 [facility] ([place] Comment on above: Performed By: #### U A, UAMIC #### [address] [address] WBC 10.3 10 3/mcL Normal 4.5-10.8 [facility] [place] Comment on above: Performed By: #### U A, UAMIC #### [place] [address] LABORATORYOrdered By: Carlo Amaya on 07-12-2022 ABO [...] (07/12/22 11:46 AM) Invalid Interpretation Code Non-Reactive [facility] Viro/Sero SS LABORATORYOrdered By: Trey Pedro on 07-12-2022 ABO and Rh group Nom (Bld) O positive (07/12/22 11:28 AM) [facility] Work Phone: Group B Strep Date Performed [id number] [facility] Work Phone: Group B Strep, External Negative (07/12/22 11:28 AM) [facility] Work Phone: Hepatitis B Date Performed [id number] [facility] Work Phone: Hepatitis B, External Negative (07/12/22 11:28 AM) [facility] Work Phone: HIV Antibodies, External Negative (07/12/22 11:28 AM) [facility] Work Phone: RPR, External Nonreactive (07/12/22 11:28 AM) [facility] Work Phone: Rubella, External Immune (07/12/22 11:28 AM) [facility] Work Phone: GBSPCRon 06-18-2022 Group B Strep (PCR) Negative Normal Negative [facility] ([place]) Comment on above: Result Comment: Note s [id number] Performed By: #### G BSPCR #### [place] [address] Group B Strep PCR Int Normal [facility] ([place]) Comment on above: Result Comment: Grou p [...] Below Performed By: #### G BSPCR #### [place] [id number] UAon 05-06-2022 Color (U) Yellow Normal [facility] ([place] Comment on above: Performed By: #### U A, UAMIC #### [place] [id number] Glucose (U) [Mass/Vol] 100 mg/dL Abnormal Negative [facility] ([place]) Comment on above: Performed By: #### U A, UAMIC #### [place] [id number] Ketones Ql (U) Trace Normal Neg-Trace [facility] ([place] Comment on above: Performed By: #### U A, UAMIC #### [place] [id number] UA Appear Cloudy Abnormal Clear [facility] ([place] Comment on above: Performed By: #### U A, UAMIC #### [place] [id number] UA Blood Negative Normal Neg-Trace [facility] ([place] Comment on above: Performed By: #### U A, UAMIC #### [place] [address] UA Leuk Est Large Abnormal Negative [facility] ([place] Comment on above: Performed By: #### U A, UAMIC #### [address] [address] UA Nitrite Negative Normal Negative [facility] ([place] Comment on above: Performed By: #### U A, UAMIC #### [place] [address] UA pH 7.0 Normal 5.0 - 8.0 [facility] ([place] Comment on above: Performed By: #### U A, UAMIC #### [place] [address] UA Protein Trace Normal Negative [facility] ([place] Comment on above: Performed By: #### U A, UAMIC #### [place] [address] UA Spec Grav 1.020 Normal 1.006-1.029 [facility] ([place] Comment on above: Performed By: #### U A, UAMIC #### [place] [address] UA Specimen Type Clean Catch Normal [facility] ([place] Comment on above: Performed By: #### U A, UAMIC #### [place] [address] UA Urobilinogen 0.2 E.U./dL Normal 0.2-1.0 [facility] ([place] Comment on above: Performed By: #### U A, UAMIC #### [place] [address] Urobilinogen (U) [Mass/Vol] Negative Normal Neg-Trace [facility] ([place] Comment on above: Performed By: #### U A, UAMIC #### [place] [address] UAMICon 05-06-2022 UA Bacteria 1+ /hpf Abnormal Negative [facility] ([place] Comment on above: Performed By: #### U A, UAMIC #### [place] [address] UA Mucous Trace Normal [facility] ([place] Comment on above: Performed By: #### U A, UAMIC #### [facility] [address] [place] [address] UA RBC 0-2 Normal 0-2 [facility] [place] Comment on above: Performed By: #### U A, UAMIC #### [facility] [address] [place] [address] UA Squam Epithelial 5-10 Normal 0-20 [facility] ([place] Comment on above: Performed By: #### U A, UAMIC #### [place] [address] UA Transitional Epithelial 0-2 Normal [facility] ([place] Comment on above: Performed By: #### U A, UAMIC #### [place] [address] UA WBC 10-20 Abnormal 0-5 [facility] ([place] Comment on above: Performed By: #### U A, UAMIC #### [place] [address] LABORATORYOrdered By: Trey Miller on 09-28-2021 Beta HCG ( test) Ql (U) Negative (09/28/21 2:18 PM) [facility] Work Phone: LABORATORYOrdered By: Tracy Hernandez on 08-12-2021 Beta HCG ( test) Ql (U) HCG not detected.Very dilute urine specimens, as indicated by a low specific gravity, may not contain [employer] sales representative levels of hCG.If is still suspected, a first morning urine specimen should be collected 48 hours later and tested. Invalid Interpretation Code Manual Urine SS HCG Qn (U) Negative (08/12/21 9:10 AM) Invalid Interpretation Code Manual Urine SS PROGESTERONE [CCL]on 022 Progesterone 3.5 ng/mL Normal See comment [facility] Comment on above: Result Comment: Mens trual Cycle Progesterone Reference Ranges: Follicular: <1.0 ng/mL Ovulation: <12.1 ng/mL Luteal: 1.8 to 23.9 ng/mL. Progesterone Reference Ranges vary by gestational period: First Trimester: 11.0 to 44.3 ng/mL Second Trimester: 25.4 to 83.3 ng/mL Third Trimester: 58.7 to 214 ng/mL Post menopausal Progesterone: <0.5 ng/mL Reference: 1. Progesterone (Progesterone III) [package insert V 1.0 Uzbek]. [facility], [place], [place]. November 2014. [facility] [employer] [address] [place] [address] Lamberto Lopez III, M.D. [id number] Performed By: #### 2 [id number] #### [address] [address] HGB A1C [CCL]on 06-13-2021 HbA1c (Bld) [Mass fraction] 5.2 % Normal 4.3-5.6 [facility] Comment on above: Result Comment: [place] Diabetes Association guidelines indicate that patients with HgbA1c in the range 5.7-6.4% are at increased risk for development of diabetes, and intervention by lifestyle modification may be beneficial. HgbA1c greater or equal to 6.5% is considered diagnostic of diabetes. Performed By: #### 2 [id number] #### [address] [address] Hemoglobin A0 103 mg/dL Normal [facility] Comment on above: Result Comment: eAG: (Estimated average glucose) is a calculated value from HgbA1c and is [employer] sales representative of the average blood glucose level in the last 2-3 month period. [facility] [employer] [address] [place] [address] Lamberto Lopez III, M.D. [id number] Performed By: #### 2 [id number] #### [address] [address] Vital Signs Date Time Vital Sign Value Performing Clinician Facility 10-16-2024 13:32-0400 Body height 165.1 cm No Primary Care Physician [facility] 10-16-2024 13:32-0400 Body mass index (BMI) [Ratio] 36.7 kg/m2 No Primary Care Physician [facility] 10-16-2024 13:32-0400 Body weight 100.04 kg No Primary Care Physician [facility] 10-16-2024 13:32-0400 Diastolic blood pressure 77 mm[Hg] No Primary Care Physician [facility] 10-16-2024 13:32-0400 Systolic blood pressure 123 mm[Hg] No Primary Care Physician [facility] 10-11-2024 07:57-0400 Body height 165.1 cm No Primary Care Physician [facility] 10-11-2024 07:57-0400 Body mass index (BMI) [Ratio] 36.5 kg/m2 No Primary Care Physician [facility] 10-11-2024 07:57-0400 Body weight 99.59 kg No Primary Care Physician [facility] 10-11-2024 07:57-0400 Diastolic blood pressure 79 mm[Hg] No Primary Care Physician [facility] 10-11-2024 07:57-0400 Systolic blood pressure 112 mm[Hg] No Primary Care Physician [facility] 10-02-2024 14:55-0400 Body height 165.1 cm No Primary Care Physician [facility] 10-02-2024 14:55-0400 Body mass index (BMI) [Ratio] 37 kg/m2 No Primary Care Physician [facility] 10-02-2024 14:55-0400 Body weight 100.81 kg No Primary Care Physician [facility] 10-02-2024 14:55-0400 Diastolic blood pressure 84 mm[Hg] No Primary Care Physician [facility] 10-02-2024 14:55-0400 Systolic blood pressure 122 mm[Hg] No Primary Care Physician [facility] 09-24-2024 14:08-0400 Body height 165.1 cm No Primary Care Physician [facility] 09-24-2024 14:08-0400 Body mass index (BMI) [Ratio] 36.1 kg/m2 No Primary Care Physician [facility] 09-24-2024 14:08-0400 Body weight 98.57 kg No Primary Care Physician [facility] 09-24-2024 14:08-0400 Diastolic blood pressure 81 mm[Hg] No Primary Care Physician [facility] 09-24-2024 14:08-0400 Systolic blood pressure 119 mm[Hg] No Primary Care Physician [facility] 09-11-2024 09:34-0400 Body height 165.1 cm No Primary Care Physician [facility] 09-11-2024 09:34-0400 Body mass index (BMI) [Ratio] 36.3 kg/m2 No Primary Care Physician [facility] 09-11-2024 09:34-0400 Body weight 98.91 kg No Primary Care Physician [facility] 09-11-2024 09:34-0400 Diastolic blood pressure 76 mm[Hg] No Primary Care Physician [facility] 09-11-2024 09:34-0400 Systolic blood pressure 118 mm[Hg] No Primary Care Physician [facility] 08-28-2024 14:41-0400 Body height 165.1 cm No Primary Care Physician [facility] 08-28-2024 14:41-0400 Body mass index (BMI) [Ratio] 36.3 kg/m2 No Primary Care Physician [facility] 08-28-2024 14:41-0400 Body weight 98.99 kg No Primary Care Physician [facility] 08-28-2024 14:41-0400 Diastolic blood pressure 78 mm[Hg] No Primary Care Physician [facility] 08-28-2024 14:41-0400 Systolic blood pressure 115 mm[Hg] No Primary Care Physician [facility] 08-15-2024 11:21-0400 Body height 165.1 cm No Primary Care Physician [facility] 08-15-2024 11:21-0400 Body mass index (BMI) [Ratio] 35.6 kg/m2 No Primary Care Physician [facility] 08-15-2024 11:21-0400 Body weight 97.23 kg No Primary Care Physician [facility] 08-15-2024 11:21-0400 Diastolic blood pressure 77 mm[Hg] No Primary Care Physician [facility] 08-15-2024 11:21-0400 Systolic blood pressure 109 mm[Hg] No Primary Care Physician [facility] 07-30-2024 15:24-0400 Body height 165.1 cm No Primary Care Physician [facility] 07-30-2024 15:24-0400 Body mass index (BMI) [Ratio] 35.9 kg/m2 No Primary Care Physician [facility] 07-30-2024 15:24-0400 Body weight 97.97 kg No Primary Care Physician [facility] 07-30-2024 15:24-0400 Diastolic blood pressure 80 mm[Hg] No Primary Care Physician [facility] 07-30-2024 15:24-0400 Systolic blood pressure 118 mm[Hg] No Primary Care Physician [facility] 07-04-2024 10:51-0400 Body height 165.1 cm No Primary Care Physician [facility] 07-04-2024 10:50-0400 Body mass index (BMI) [Ratio] 34.8 kg/m2 No Primary Care Physician [facility] 07-04-2024 10:50-0400 Body weight 95.02 kg No Primary Care Physician [facility] 07-04-2024 10:50-0400 Diastolic blood pressure 76 mm[Hg] No Primary Care Physician [facility] 07-04-2024 10:50-0400 Systolic blood pressure 110 mm[Hg] No Primary Care Physician [facility] 06-08-2024 11:48-0400 Body mass index (BMI) [Ratio] 34 kg/m2 No Primary Care Physician [facility] 06-08-2024 11:48-0400 Body weight 92.58 kg No Primary Care Physician [facility] 06-08-2024 11:48-0400 Diastolic blood pressure 74 mm[Hg] No Primary Care Physician [facility] 06-08-2024 11:48-0400 Systolic blood pressure 107 mm[Hg] No Primary Care Physician [facility] 05-09-2024 08:39-0400 Body mass index (BMI) [Ratio] 32.6 kg/m2 No Primary Care Physician [facility] 05-09-2024 08:39-0400 Body weight 89.07 kg No Primary Care Physician [facility] 05-09-2024 08:39-0400 Diastolic blood pressure 76 mm[Hg] No Primary Care Physician [facility] 05-09-2024 08:39-0400 Systolic blood pressure 112 mm[Hg] No Primary Care Physician [facility] 04-13-2024 10:21-0500 Body mass index (BMI) [Ratio] 32.1 kg/m2 No Primary Care Physician [facility] 04-13-2024 10:21-0500 Body weight 87.71 kg No Primary Care Physician [facility] 04-13-2024 10:21-0500 Diastolic blood pressure 84 mm[Hg] No Primary Care Physician [facility] 04-13-2024 10:21-0500 Systolic blood pressure 118 mm[Hg] No Primary Care Physician [facility] 03-16-2024 13:16-0500 Body mass index (BMI) [Ratio] 32 kg/m2 No Primary Care Physician [facility] 03-16-2024 13:16-0500 Body weight 87.25 kg No Primary Care Physician [facility] 03-16-2024 13:16-0500 Diastolic blood pressure 79 mm[Hg] No Primary Care Physician [facility] 03-16-2024 13:16-0500 Systolic blood pressure 119 mm[Hg] No Primary Care Physician [facility] 06-17-2023 23:09-0400 Body temperature 98 [degF] [facility] 06-17-2023 23:09-0400 Diastolic blood pressure 87 mm[Hg] [facility] 06-17-2023 23:09-0400 Heart rate 65 /min [facility] 06-17-2023 23:09-0400 Respiratory rate 18 /min [facility] 06-17-2023 23:09-0400 SaO2% (BldA) [Mass fraction] 97 % [facility] 06-17-2023 23:09-0400 Systolic blood pressure 118 mm[Hg] [facility] 06-17-2023 19:13-0400 Body height 160.02 cm [facility] 07-17-2022 07:10-0400 Body temperature 98.06 [degF] [employer] DO [facility] 07-17-2022 07:10-0400 Diastolic Blood Pressure Non-Invasive 80 1 HILARY LIONEL DO [facility] 07-17-2022 07:10-0400 Heart rate 96 /min [employer] [facility] 07-17-2022 07:10-0400 Reason For Taking VItal Signs HILARY LIONEL DO [facility] 07-17-2022 07:10-0400 Respiratory rate 18 /min HILARY LIONEL DO [facility] 07-17-2022 07:10-0400 Systolic Blood Pressure Non-Invasive 132 1 HILARY LIONEL DO [facility] 07-17-2022 04:02-0400 Body temperature 98.42 [degF] HILARY LIONEL DO [facility] 07-17-2022 04:02-0400 Diastolic Blood Pressure Non-Invasive 81 1 HILARY LIONEL DO [facility] 07-17-2022 04:02-0400 Heart rate 89 /min HILARY LIONEL DO [facility] 07-17-2022 04:02-0400 Reason For Taking VItal Signs HILARY LIONEL DO [facility] 07-17-2022 04:02-0400 Respiratory rate 18 /min HILARY LIONEL DO [facility] 07-17-2022 04:02-0400 Systolic Blood Pressure Non-Invasive 123 1 HILARY LIONEL DO [facility] 07-16-2022 22:52-0400 Body temperature 98.24 [degF] HILARY LIONEL DO [facility] 07-16-2022 22:52-0400 Diastolic Blood Pressure Non-Invasive 77 1 HILARY LIONEL DO [facility] 07-16-2022 22:52-0400 Heart rate 100 /min HILARY LIONEL DO [facility] 07-16-2022 22:52-0400 Reason For Taking VItal Signs HILARY LIONEL DO [facility] 07-16-2022 22:52-0400 Respiratory rate 20 /min HILARY LIONEL DO [facility] 07-16-2022 22:52-0400 Systolic Blood Pressure Non-Invasive 125 1 HILARY LIONEL DO [facility] 07-16-2022 13:00-0400 Mean blood pressure 92 mm[Hg] HILARY LIONEL DO [facility] 07-16-2022 11:50-0400 Mean blood pressure 97 mm[Hg] HILARY LIONEL DO [facility] 07-16-2022 11:00-0400 Mean blood pressure 103 mm[Hg] HILARY LIONEL DO [facility] 07-14-2022 03:45-0400 Body temperature 96.8 [degF] HILARY LIONEL DO [facility] 07-14-2022 03:40-0400 Respiratory Rate - Anes 0 br/min HILARY LIONEL DO [facility] 07-14-2022 03:35-0400 Respiratory Rate - Anes 25 br/min HILARY LIONEL DO [facility] 07-14-2022 03:30-0400 Body temperature 96.8 [degF] HILARY LIONEL DO [facility] 07-14-2022 03:30-0400 Respiratory Rate - Anes 4 br/min HILARY LIONEL DO [facility] 07-14-2022 03:15-0400 Body temperature 96.8 [degF] HILARY LIONEL DO [facility] 07-12-2022 11:28-0400 Body height 160.6 cm HILARY LIONEL DO [facility] 07-12-2022 11:28-0400 Body weight 89 kg HILARY LIONEL DO [facility] 07-12-2022 11:28-0400 Body weight 34.51 kg/m2 HILARY FLOWERS DO [facility] 09-28-2021 17:10-0400 Body temperature 97.34 [degF] FEDERICO VASSAS DO [facility] 09-28-2021 17:10-0400 Diastolic blood pressure 80 mm[Hg] FEDERICO VASSAS DO [facility] 09-28-2021 17:10-0400 Heart rate 79 /min FEDERICO VASSAS DO [facility] 09-28-2021 17:10-0400 Mean blood pressure 92 mm[Hg] FEDERICO VASSAS DO [facility] 09-28-2021 17:10-0400 Respiratory rate 16 /min FEDERICO VASSAS DO [facility] 09-28-2021 17:10-0400 Systolic blood pressure 115 mm[Hg] FEDERICO VASSAS DO [facility] 09-28-2021 16:36-0400 Body temperature 97.52 [degF] FEDERICO VASSAS DO [facility] 09-28-2021 16:36-0400 Diastolic Blood Pressure NBP 80 1 FEDERICO VASSAS DO [facility] 09-28-2021 16:36-0400 Heart rate 76 /min FEDERICO VASSAS DO [facility] 09-28-2021 16:36-0400 Mean blood pressure 89 mm[Hg] FEDERICO VASSAS DO [facility] 09-28-2021 16:36-0400 Respiratory rate 16 /min FEDERICO VASSAS DO [facility] 09-28-2021 16:36-0400 Systolic Blood Pressure NBP 116 1 FEDERICO VASSAS DO [facility] 09-28-2021 16:20-0400 Diastolic Blood Pressure NBP 84 1 FEDERICO VASSAS DO [facility] 09-28-2021 16:20-0400 Heart rate 78 /min FEDERICO VASSAS DO [facility] 09-28-2021 16:20-0400 Mean blood pressure 93 mm[Hg] FEDERICO VASSAS DO [facility] 09-28-2021 16:20-0400 Respiratory rate 16 /min FEDERICO VASSAS DO [facility] 09-28-2021 16:20-0400 Systolic Blood Pressure NBP 123 1 FEDERICO VASSAS DO [facility] 09-28-2021 16:06-0400 Body temperature 97.52 [degF] FEDERICO VASSAS DO [facility] 09-28-2021 16:06-0400 Diastolic blood pressure 84 mm[Hg] FEDERICO VASSAS DO [facility] 09-28-2021 16:06-0400 Mean blood pressure 97 mm[Hg] FEDERICO VASSAS DO [facility] 09-28-2021 16:06-0400 Systolic blood pressure 123 mm[Hg] FEDERICO VASSAS DO [facility] 09-28-2021 16:02-0400 Diastolic Blood Pressure NBP 90 1 FEDERICO VASSAS DO [facility] 09-28-2021 16:02-0400 Systolic Blood Pressure NBP 120 1 FEDERICO VASSAS DO [facility] 09-28-2021 15:50-0400 Body temperature 97.38 [degF] FEDERICO VASSAS DO [facility] 09-28-2021 15:45-0400 Body temperature 97.34 [degF] FEDERICO VASSAS DO [facility] 09-28-2021 15:40-0400 Body temperature 97.18 [degF] FEDERICO VASSAS DO [facility] 09-28-2021 14:13-0400 Body height 160 cm FEDERICO VASSAS DO [facility] 09-28-2021 14:13-0400 Body weight 72.4 kg FEDERICO VASSAS DO [facility] 09-28-2021 14:13-0400 Diastolic blood pressure 81 mm[Hg] FEDERICO VASSAS DO [facility] 09-28-2021 14:13-0400 Heart rate 93 /min FEDERICO VASSAS DO [facility] 09-28-2021 14:13-0400 Mean blood pressure 97 mm[Hg] FEDERICO VASSAS DO [facility] 09-28-2021 14:13-0400 Systolic blood pressure 128 mm[Hg] FEDERICO VASSAS DO [facility] Encounters Encounter Date Encounter Type Care Provider Facility Start: 10-16-2024 End: 10-16-[address] Laya Pugh MD -[facility] Work Phone: Start: 10-16-2024 End: 10-16-2024 ambulatory No Primary Care Physician -[facility] Start: 10-11-2024 End: 10-11-2024 Patient encounter procedure Jorge Valente CNM -[facility] Work Phone: Start: 10-11-2024 End: 10-11-2024 ambulatory No Primary Care Physician -[facility] Start: 10-02-2024 End: 10-02-[address] Laya Pugh MD -[facility] Work Phone: Start: 10-02-2024 End: 10-02-2024 ambulatory No Primary Care Physician -[facility] Start: 09-24-2024 End: 09-24-2024 ambulatory No Primary Care Physician -Laboratory Specimen Start: 09-24-2024 End: 09-24-2024 Patient encounter procedure Jorge Valente CNM -Laboratory Specimen Work Phone: Start: 09-24-2024 End: 09-24-2024 Patient encounter procedure Jorge CHRISTOPHERM -[facility] Work Phone: Start: 09-24-2024 End: 09-24-2024 ambulatory No Primary Care Physician -[facility] Start: 09-24-2024 End: 09-24-2024 ambulatory Jorge Valente Facility:[facility] Start: 09-11-2024 End: 09-11-[address] Holly Lindsey DO -[facility] Work Phone: Start: 09-11-2024 End: 09-11-2024 ambulatory No Primary Care Physician -[facility] Start: 08-28-2024 End: 08-28-2024 Patient encounter procedure Linh Obregon NP-C -[facility] Work Phone: Start: 08-28-2024 End: 08-28-2024 ambulatory No Primary Care Physician -[facility] Start: 08-15-2024 End: 08-15-2024 Patient encounter procedure Jorge Valente CNM -[facility] @ Start: 08-15-2024 End: 08-15-2024 ambulatory No Primary Care Physician -[facility] @ Start: 07-30-2024 End: 07-30-2024 Patient encounter procedure Linh Obregon NP-C -[facility] Work Phone: Start: 07-30-2024 End: 07-30-2024 ambulatory No Primary Care Physician [facility] Work Phone: Start: 07-30-2024 End: 07-30-2024 ambulatory No Primary Care Physician Facility:[facility] Start: 07-04-2024 End: 07-04-[address] Holly Lindsey DO -[facility] Work Phone: Start: 07-04-2024 End: 07-04-2024 ambulatory No Primary Care Physician [facility] Work Phone: Start: 06-08-2024 End: 06-08-[address] Laya Pugh MD -[facility] Work Phone: Start: 06-08-2024 End: 06-08-2024 ambulatory No Primary Care Physician Facility:[facility] Start: 05-28-2024 End: 05-28-2024 ambulatory MD PRIMARY CARE [facility] Start: 05-09-2024 End: 05-09-2024 Patient encounter procedure Linh GREENE -[facility] Work Phone: Start: 05-09-2024 End: 05-09-2024 ambulatory No Primary Care Physician Facility:[facility] Start: 04-13-2024 End: 04-13-2024 Patient encounter procedure Jorge Valente CNM -[facility] Work Phone: Start: 04-13-2024 End: 04-13-2024 ambulatory No Primary Care Physician Facility:[facility] Start: 03-29-2024 End: 03-29-[address] Laya Pugh MD -[facility] Start: 03-29-2024 End: 03-29-2024 ambulatory No Primary Care Physician Facility:[facility] Start: 03-16-2024 End: 03-16-[address] Holly Lindsey DO -[facility] Work Phone: Start: 03-16-2024 End: 03-16-[address] Holly Lindsey DO -[facility] Work Phone: Start: 03-16-2024 End: 03-16-2024 ambulatory No Primary Care Physician Facility:[facility] Start: 03-16-2024 End: 03-16-2024 ambulatory No Primary Care Physician Facility:[facility] Start: 03-05-2024 End: 03-05-2024 ambulatory No Primary Care Physician Facility:[facility] Start: 03-02-2024 ambulatory No Primary Car e Physician Facility:[facility] Start: 02-27-2024 End: 02-27-2024 ambulatory No Primary Care Physician Facility:[facility] Start: 02-22-2024 End: 02-22-2024 ambulatory No Primary Care Physician Facility:[facility] Start: 02-20-2024 End: 02-20-2024 ambulatory No Primary Care Physician Facility:[facility] Start: 06-17-2023 End: 06-17-2023 Emergency department patient visit [facility] Work Phone: Start: 07-12-2022 End: 07-17-2022 Evaluation and management of inpatient KHADIJAH NEVAREZ MD Facility:A Start: 07-12-2022 End: 07-17-2022 Evaluation and management of inpatient HILAYR FLOWERS DO [facility] Start: 06-17-2022 End: 06-22-2022 ambulatory TERE BURRIS APRN-[employer]GE[employer] Facility:A Start: 05-06-2022 End: 05-11-2022 ambulatory CASH CIFUENTES MD Facility:A Start: 09-28-2021 End: 09-28-2021 ambulatory YEIMY PRICE DO Facility:A Start: 09-28-2021 End: 09-28-2021 SAME DAY STAY FEDERICO LIRIANO DO [facility] Start: 08-12-2021 End: 08-12-2021 Patient encounter procedure MIRIAM LOPEZ [facility] Start: 07-30-2021 ambulatory MIRIAM LOPEZ [facility] Start: 07-17-2021 End: 07-17-2021 [facility] Start: 07-17-2021 End: 07-17-2021 Encounter for gynecological examination (general) (routine) without abnormal findings MIRIAM REEVES [facility] Start: 06-19-2021 End: 06-19-2021 ambulatory MIRIAM REEVES [facility] Start: 06-12-2021 End: 06-12-2021 ambulatory MIRIAM REEVES [facility] Procedures Date Procedure Procedure Detail Performing Clinician [...] no HPV testing was performed.Performed at: - 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 Laya Pugh MD H/O: section History of delivery, currently Dr. 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 Holly Lindsey DO H/O: section History of delivery, currently Jorge CHRISTOPHERM H/O: section History of delivery, currently Dr. Laya Pugh MD H/O: section History of delivery, currently Jorge Valente CNM H/O: section History of delivery, currently Dr. Laya Pugh MD Plan of Treatment Date Care Activity Detail Author Start: 10-30-2024 ambulatory Ambulatory Facility:[facility] Start: 07-30-2024 CBC W Auto Differential panel - Blood [facility] Start: 07-30-2024 Measurement of glucose 2 hours after glucose challenge for glucose tolerance test [facility] Start: 07-30-2024 Serologic test for syphilis [facility] Start: 07-30-2024 [facility] Start: 06-17-2023 [facility] CBC W Auto Different ial panel - Blood [facility] Choriogonadotropin ( test) [Presence] in Serum or Plasma [facility] Erythrocyte mean cor puscular volume determination [facility] Hematocrit [Volume F raction] of Blood [facility] Hemoglobin [Mass/vol ume] in Blood [facility] Leukocytes [#/volume ] in Blood [facility] Mean corpuscular hem oglobin concentration determination [facility] Mean corpuscular hem oglobin determination [facility] Measurement of gluco se 2 hours after glucose challenge for glucose tolerance test [facility] Neutrophil count [facility] Neutrophil percent differential count [facility] Patient Education Miscarriage Th reatened [facility] Work Phone: Patient referral [facility] Work Phone: Platelets [#/volume] in Blood [facility] Red blood cell count [facility] Red cell distributio n width determination [facility] Serologic test for syphilis [facility] Streptococcus agalac tiae [Presence] in Unspecified specimen by Organism specific [facility] Payers Date Payer Category Payer Unknown [id number] 2021 Self-pay 2000 Unknown [id number] 2.16.8 [id number] 1999 Unknown [id number] 2.16.8 40.1.936654.3.579.2.627 1999 Unknown [id number] 2.16.8 40.1.768240.3.579.2.627 1999 Unknown [id number] 2.16.8 40.1.897612.3.579.2.627 Self-pay SELF PAY ER DEPOSIT [id number] Unknown [id number] 2.16.8 40.1.548286.3.579.2.462 Unknown [id number] 2.16.8 40.1.751392.3.579.2.462 Unknown [id number] 2.16.8 40.1.446701.3.579.2.462 Unknown [id number] 2.16.8 40.1.534292.3.579.2.462 Unknown [id number] 2.16.8 40.1.399966.3.579.2.462 Unknown [id number] 2.16.8 40.1.110574.3.579.2.462 Unknown [id number] 2.16.8 40.1.988083.3.579.2.462 Unknown [id number] 2.16.8 40.1.869200.3.579.2.462 Unknown [id number] 2.16.8 40.1.753104.3.579.2.462 Unknown [id number] 2.16.8 40.1.007416.3.579.2.462 Unknown [id number] 2.16.8 40.1.917205.3.579.2.462 Unknown [id number] 2.16.8 40.1.155890.3.579.2.462 Unknown [id number] 2.16.8 40.1.040981.3.579.2.462 Unknown [id number] 2.16.8 40.1.788732.3.579.2.462 Unknown [id number] 2.16.8 40.1.660601.3.579.2.462 Unknown [id number] 2.16.8 40.1.609342.3.579.2.462 Unknown [id number] 2.16.8 40.1.098812.3.579.2.462 Unknown [id number] 2.16.8 40.1.567928.3.579.2.462 Unknown [id number] 2.16.8 40.1.946887.3.579.2.462 Unknown [id number] 2.16.8 40.1.790622.3.579.2.462 Unknown [id number] 2.16.8 40.1.621008.3.579.2.462 Unknown [id number] 2.16.8 40.1.639850.3.579.2.462 Unknown [id number] 2.16.8 40.1.467706.3.579.2.462 Social History Date Type Detail Facility Tobacco smoking status [facility] Start: 2000 Sex Assigned At Female A [facility] Start: 06-17-2023 Tobacco smoking stat [facility] Unknown if ever smoked [facility] Start: 03-02-2024 [facility] Functional Status Date Assessment Result Facility 07-17-2022 Functional Status Ambulating in room, Awake [facility] 07-17-2022 Functional Status [facility] 07-17-2022 [facility] 07-17-[facility] Functional Status SCD On/Re-applied bilat eral knee high [facility] 07-16-2022 Functional Status High Risk Safety Door o pen [facility] 07-16-2022 Functional Status [facility] 07-16-2022 Functional Status Living Situation Lives with spouse [facility] 07-16-2022 Functional Status [facility] 07-16-2022 Functional Status heel(s)s elevated [facility] 07-16-2022 Functional Status low air loss bed [facility] 07-16-2022 Functional Status Done [facility] 07-16-2022 Functional Status [facility] 07-16-2022 Functional Status [facility] 07-15-2022 Functional Status NPO Status Initiated [facility] 07-15-2022 Functional Status Sitting in bed , Visiting with family [facility] 07-15-2022 Functional Status [facility] 07-15-2022 Functional Status [facility] 07-14-2022 Functional Status [facility] 07-12-2022 [facility] 09-28-2021 Functional Status Up to bathroom , Up with assistance [facility] 09-28-2021 [facility] 09-28-2021 Functional Status Maintained [facility] Mental Status Date Assessment Result Facility 07-16-2022 Mental Status Oriented x 4 [facility] 07-16-2022 Mental Status [facility] 07-16-2022 Mental Status [facility] 07-16-2022 Mental Status [facility] 09-28-2021 Mental Status Orientation Oriented x 4 [facility] 09-28-2021 Mental Status [facility] 09-28-2021 Mental Status [facility] Clinical Notes 08-12-2021 to 10-16-2024 Note Date & Type Note Facility 10-16-2024 Progress note [facility] 10-16-2024 Progress note Note Date/Time October 16, 2024 2:20pm [facility] [address] [place] [address], [address] [place] [address] OFFICE VISIT Date of Service: 10/16/24 MR#: [id number] Acct: [id number] Name: JERMAIN GERARD Rep #: [id number] : 2000 Provider: Dr. 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 Pushed for 2 hours and was OP. [...] Cosigner Signature: Date (if applicable) CC: ~ [facility] Work Phone: 1(673) 718-974609-04-2025 [facility] [address] [place] [address], [address] [place] [address] OFFICE VISIT Date of Service: 10/11/24 MR#: [id number] Acct: [id number] Name: JERMAIN GERARD Rep #: [id number] : 2000 Provider: FABBY Valente Age/Sex: 24/F [place] [facility] Status: Signed Intake Vital Signs 08/28/24 14:41 10/02/24 14:55 10/11/24 07:57 Height 5 ft 5 in 5 ft 5 in 5 ft 5 in Weight: 219 lb 9 oz BMI 36.5 BP 112/79 Intake Visit Reasons: 38wk ob *trying for Chief Complaint: 38wk OB Slitter Cut Off Operator Required: No Is patient in pain?: No [...] 1 current occupational status: employed 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 Pushed for 2 hours and was OP. [...] Roblesignpratibha Signature: Date (if applicable) CC: ~ [facility]08-26-2025 [facility] [address] [place] [address], [address] [place] [address] OFFICE VISIT Date of Service: 10/02/24 MR#: [id number] Acct: [id number] Name: JERMAIN GERARD Rep #: [id number] : 2000 Provider: Dr. 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 Pushed for 2 hours and was OP. [...] Cosigner Signature: Date (if applicable) CC: ~ [facility]08-26-2025 Progress note Author Laya Pugh [facility] Note Date/Time October 02, 2024 3: 17pm [facility] [address] [place] [address], [address] [place] [address] OFFICE VISIT Date of Service: 10/02/24 MR#: [id number] Acct: [id number] Name: JERMAIN GERARD Rep #: [id number] : 2000 Provider: Dr. 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 OB Visit NTAAN Calculator Estimated Delivery Date Method Current WG [...] to pt was due to malposition at [place]. Pushed for 2 hours and was OP. [...] of asthma: Status: Acute Comment: Childhood 10/02/24 [id number] <Electronically signed by Laya mendoza MD> Date _ Laya Pugh MD [facility] Signature: Date (if applicable) CC: ~ [facility] Work Phone: 1(809) 313-108908-18-2025 [facility] [address] [place] [address], [address] [place] [address] OFFICE VISIT Date of Service: 09/24/24 MR#: [id number] Acct: [id number] Name: DEQUANJERMAIN LUIS Rep #: [id number] : 2000 Provider: FABBY Valente Age/Sex: 24/F [place] [facility] Status: Signed Intake Vital Signs 07/30/24 15:24 09/11/24 09:34 09/24/24 14:08 Height 5 ft 5 in 5 ft 5 in 5 ft 5 in Weight: 217 lb 5 oz BMI 36.1 BP 119/81 H Intake Visit Reasons: 36 wk ob Chief Complaint: 36wk OB Slitter Cut Off Operator Required: No Is patient in pain?: No [...] 1 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 requested but according to pt was due to malposition at [place]. Pushed for 2 hours and was OP. [...] Cosigner Signature: Date (if applicable) CC: ~ [facility]08-18-2025 Progress note Author Jorge Valente [facility] Note Date/Time September 24, 2024 2: 25pm [facility] [address], [address] [place] [address] OFFICE VISIT Date of Service: 09/24/24 MR#: [id number] Acct: [id number] Name: JERMAIN GERARD Rep #: [id number] : 2000 Provider: FABBY Valente Age/Sex: 24/F [place] [facility] Status: Signed Intake Vital Signs 07/30/24 15:24 09/11/24 09:34 09/24/24 14:08 Height 5 ft 5 in 5 ft 5 in 5 ft 5 in Weight: 217 lb 5 oz BMI 36.1 BP 119/81 H Intake Visit Reasons: 36 wk ob Chief Complaint: 36wk OB Slitter Cut Off Operator Required: No Is patient in pain?: No [...] 1 current occupational status: employed 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 28 wk labs pending. [facility] 08/15/24 -?-?-?-?-?-?-?-?-?-?-?-?- 30w 1d 214 lb 6 oz (+22 lb 6 oz) 109/77 Trace -?-?-?-?-?-?-?-?-?-?-?-?- Negative 160 31 -?-?-?-?-?-?-?-?-?-?-?-?- KW- no vb/lof/ct x. good fm desires and would like to go to 41 weeks gest ation. C/S records requested but according to pt was due to malposition at [place]. Pushed for 2 hours and was OP. [...] gutierrez CNM> Date _ Jorge Valente CNM [facility] Division[facility]atibha Signature: Date (if applicable) CC: ~ [facility] Work Phone: 1([phone]) 428-910307-09-2025 [facility] [address] [place] [address], [place] [address] OFFICE VISIT Date of Service: 08/15/24 MR#: [id number] Acct: [id number] Name: JERMAIN GERARD Rep #: [id number] : 2000 Provider: FABBY Valente Age/Sex: 24/F Location: [facility] Status: Signed Intake Vital Signs 07/04/24 10:51 07/30/24 15:24 08/15/24 11:21 Height 5 ft 5 in 5 ft 5 in 5 ft 5 in Weight: 214 lb 6 oz BMI 35.6 BP 109/77 Intake Visit Reasons: 30wk ob Slitter Cut Off Operator Required: No Is patient in pain?: No [...] 1 current occupational status: employed current occupation: [employer] current occupational exposures/hazards: No pets and animals: Yes pets and animals: dog(s) history of recent travel: [place] ([place] - Beginning of Feb 2024) out of [...] 3-4 times per week duration: 15-30 minutes/day jerome/lutheran: None seatbelt use: always do you feel [...] 07/14/22 Last Updated by: Marcela Patrick RN [facility] d/t [place] & [...] to pt was due to malposition at [place]. Pushed for 2 hours and was OP. [...] Roblesigner Signature: Date (if applicable) CC: ~ [facility]05-28-2025 Evaluation note* Diagnosis Onset Date Resolution [...] of high-risk acute October 11, 025 7:51am [facility] Work Phone: [phone]) [phone] Evaluation note* Diagnosis Onset Date Resolution Status [...] Supervision of high-risk acute October 16 1:19pm [facility] Work Phone: 1([phone]) [phone] [facility] [address] [place] [address], [address] [place] [address] OFFICE VISIT Date of Service: 07/04/24 MR#: [id number] Acct: [id number] Name: JERMAIN GERARD Rep #: [id number] : 2000 Provider: Dr. Lula Lindsey DO Age/Sex: 24/F [place] [facility] Status: Signed Intake Vital Signs 04/13/24 10:21 06/08/24 11:48 07/04/24 10:50 07/04/24 10:51 Height 5 ft 5 in 5 ft 5 in 5 ft 5 in 5 ft 5 in Weight: 209 lb 8 oz BMI 34.8 BP 110/76 Intake Visit Reasons: 24 wk ob Slitter Cut Off Operator Required: No Is patient in pain?: No [...] 1 current occupational status: employed current occupation: [employer] - [employer] current occupational exposures/hazards: No pets and animals: Yes pets and animals: dog(s) history of recent travel: Yes ([place] - Beginning of Feb 2024) out of [...] 3-4 times per week duration: 15-30 minutes/day jerome/lutheran: None seatbelt use: always do you feel [...] Ashley DO> Date _ Holly Lindsey DO [facility] Signature: Date (if applicable) CC: ~ [facility]05-02-2025 Evaluation note* Diagnosis Onset Date Resolution [...] of high-risk acute September 11, 2024 9:27am [facility] Work Phone: [phone]) 475-171205-02-2025 Evaluation note* Diagnosis Onset Date Resolution Status [...] Supervision of high-risk acute September 24 2:03pm [facility] Work Phone: 1([phone]) 352-235805-02-2025 Evaluation note* Diagnosis Onset Date Resolution Status [...] Supervision of high-risk acute October 02 2:37pm [facility] Work Phone: [phone]) 601-843704-02-2025 Evaluation note* Diagnosis Onset Date Resolution Status [...] high-risk acute August 15, 2024 1 1:18am [facility] Work Phone: [phone] Evaluation note* Diagnosis Onset Date Resolution Status [...] of high-risk acute August 28, 2024 3:02pm [facility] Work Phone: [phone]) [phone] Evaluation note* Diagnosis Onset Date Resolution Status [...] of high-risk acute July 30, 2024 3:21pm [facility] Work Phone: [phone]) [phone] Evaluation note* Diagnosis Onset Date Resolution Status [...] high-risk acute July 04, 2024 1 0:46am [facility] Work Phone: 1([phone]) 922-425405-10-2024 Discharge summary Author Fernando Shirley [facility] June 17, 2023 10:35pm Note Date/Time June 17, 2023 8:11p m [facility] Medical Records Department [address] [place] [address] Emergency Department Summary 06/17/23 MR#: [id number] Acct: [id number] Name: JERMAIN GERARD Rep #:[id number] : 2000 23 From: Fernando Shirley MD [...] Clarity Cloudy Urine pH 7.0 Ur Specific [place] 1.015 Urine Protein 100 H Urine Glucose [...] your Primary Care Provider. Call [facility] ([phone]) or report to the closest Emergency Room. Call 911 if necessary. 06/17/232234 <Electronically signed by Fernando Shirley MD> Cosigner Signature (if applicable): CC: FABBY Valente; No Primary Care Physician ~ Signed [facility] Work Phone: 1([phone]) 143-548607-06-2023 Note. MICRO - Microbiology PROCEDURE: Blood Culture [...] Locations *1: This test was performed at: [address], [facility] , [facility]07-20-2022 Note. MICRO - Microbiology PROCEDURE: Blood Culture [...] Locations *1: This test was performed at: [address], [facility] , [facility]07-19-2022 Note. MICRO - Microbiology PROCEDURE: Culture Tissue [...] Locations *1: This test was performed at: [facility], [address] [place] [address], [id number]- , [facility] ([place])07-17-2022 Hospital Discharge instructions Patient Education 07/17/2022 08:44:29 [...] music. Avoid alcohol. Ask for help with director of public relations, cooking, grocery shopping, or running errands. Do not try to doeverything yourself. Consider hiring a ethnographic materials conservator to help. This is a professional who [...] the things you are grateful for. Take nnef-xgy-ahvynyj and prescription medicines only as told by [...] 10/28/2004 Document Revised: 05/18/2019 Document Reviewed: 03/22/2017 [employer] Patient Education 2020 [employer]. 07/17/2022 08:44:26 7- Section ( Care) (08/2016) [...] may still have mild discomfort. Only take jhlg-jto-aergidz or prescription medicine as directedby your caregiver. [...] Document Re-Released: 11/21/2009 ExitCare Patient Information 2010 [employer]. Follow Up Care 06/07/2022 10:10:13 With:Mookie Gilliam [facility] Address: [address] [place], [place] [address] [address]- When:Within 6 Week(s) [facility] 06-10-2023 Note. MICRO - Microbiology PROCEDURE: Urine [...] Locations *1: This test was performed at: [address], [address]- , [facility] ([place])07-17-2022 Note Discharge Instructions Thank you for allowing [facility] to assist you with your healthcare needs. The following is importantdischarge information regarding your hospital visit. Your Care Team PHYSICIAN, NONE Your Diagnosis Post-op pain What to do next Follow Up Appointments Follow Up with Mookie Gilliam [facility] When In 6 weeks Where: [place] [address]- Someone Will Contact You Regarding These Home [...] 8 hours Duration: 5 Days Pickup at [facility] #07867 New ibuprofen (ibuprofen 600 mg oral tablet) 1 tab(s) by mouth Every 6 hours Duration: 14 Days Take with food or milk. Pickup at [facility] #47385 New metroNIDAZOLE (metroNIDAZOLE 500 mg oral tablet) 1 tab(s) by mouth Every 12 hours Duration: 5 Days Pickup at [facility] #21357 New oxyCODONE (oxyCODONE 5 mg oral tablet ( IMMEDIATE release )) 1 tab(s) by mouth Every 6 hours Post-op pain Duration: 6 Days Pickup at [facility] #80642 New senna (Senokot 8.6 mg oral tablet) 1 tab(s) by mouth Daily at bedtime as needed for for constipation Duration: 20 Days Pickup at [facility] #20300 Unchanged ascorbic acid (Vitamin C) 1,000 Milligram by mouth Once a day Unchanged ferrous sulfate (IRON (ferrous sulfate 325 mg) 65 mg oral tablet) 1 tab(s) by mouth Twice daily with meals Take with food. Unchanged folic acid Once a day Unchanged herbal/ nutritional product (Evening Lerona Oil 1000 mg oral capsule) 2,600 Milligram by mouth Every day Unchanged multivitamin, ( Multivitamins with Vitamin B Complex, Vitamin C, Minerals and L-Methylfolate oral capsule) 1 cap by mouth Every day Pharmacy Information [facility] #[id number]: [address], [place] [id number] [phone] What How Much When Comments Stop Taking [...] music. Avoid alcohol. Ask for help with director of public relations, cooking, grocery shopping, or running errands. Do not try to doeverything yourself. Consider hiring a ethnographic materials conservator to help. This is a professional who [...] the things you are grateful for. Take osqe-bco-spjcuye and prescription medicines only as told by [...] Document Reviewed: 03/22/2017 Elsevier Patient Education 2020 [employer]. Section ( Care) These discharge instructions provide [...] may still have mild discomfort. Only take jpfb-wxb-qfldxbs or prescription medicine as directedby your caregiver. [...] Document Re-Released: 11/21/2009 ExitCare Patient Information 2011 [employer]ig. Additional Information VACCINATE! IT SAVES LIVES! Members of the community who have not yet received the COVID-19 vaccine and would like to receive it can visit one of [facility] vaccine clinics. There are many vaccine clinic locations within the [facility]. For locations and available times, please visit www.[email or web address].gov/. It is important to note that some COVID mobile vaccine clinics are held outdoors and may be canceled in rainy or stormy conditions. To learn more about pediatric vaccinations (ages 5-11), we invite you to visit the [facility] webpage. https://www.[email or web address].org/pages/2887-Umxfo-Dsohqvbyprj-Spbwubymmj-Cqzvb-Hni stions.htmlTo learn more about the COVID-19 vaccine, we invite you to visit the CDC website for a list of frequently asked questions. https://www.cdc.gov/coronavirus/2019-ncov/vaccines/faq.html [facility] Patient Portal Access Instructions: Stay connected with your healthcare team and access your personal medical information anytime with the [facility] Patient Portal.If you would like a full copy of your medical records, please contact the [facility] Medical Records Department, Tuesday through Tuesday between 8a.m. and 4:30p.m. Please follow the directions below to access the portal: 1.Access the email account you provided upon registration to the [facility].2.Look for an invitation email from [facility].3.Open the email and access the invitation link: Accept Invitation to [facility]4.Fill in the required haney to create your account. Sign into [email or web address] with your username and password that you [...] you will allow to register on the [facility] Patient Portal for access to your information. You can also access the [facility] Patient Portal on the Stellar anival. Simply click on Health Records under GradFly and then click on the [address] logo. HOW TO SAFELY DISPOSE OF PRESCRIPTION [...] Call your local pharmacy or go to http://[email or web address] do you roll?/5B9Wi4p to find one close to you.3.Make use of household items: Use cat litter or old coffee grounds to dispose medications if other options arenot available. Mix your drugs with these household products, seal them in an airtight container andthrow it into the garbage. Call [facility]: [phone] to be sure your drugs can be [...] aware that I should contact my doctor. 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 Signature: Date/Time: Relationship to Patient: Witness Name/Signature: Date/Time: [id number] Note OB Discharge Summary Discharge Diagnosis: ( [...] X ) Rubella immune ( ) Rubella zqo-tmkwgm-Mornreh given ( ) Rubella leu-zjpsxg-Jizxnvu declined Feeding Veras: ( X ) Breast [...] PEPE SANCHEZ MD on 07/17/2022 08:34 AM [id number] Note Chief Complaint This patient is 22 [...] from the intensive standpoint Digitally Signed by ESETVAN RAMÍREZ MD on 07/16/2022 09:24 AM [id number] Note Date of Service 07/15/2022 Chief Complaint [...] JOMAR MARIE MD on 07/15/2022 05:59 PM [facility]hypteyy46-04-4795 Note ORIGINAL EXAMINATION: PELVIC ULTRASOUND 07/15/2022 TECHNIQUE: [...] 07/15/2022 5:09:33 PM Ordering Provider: CARLITO CENTENO [id number] Note If ancillary studies were utilized, the following Laboratory Developed Test (LDT) disclaimer will apply: Under CLIA requirements, [facility] Pathology Laboratory is qualified to perform high complexity testing. For all ancillary stains, positive and negative controls stain appropriately. Performance characteristics of immunohistochemical and chromogenic in-situ hybridization tests have been deter mined by [facility]. These tests are used for clinical purposes, They should not be regarded as investigational or for research. [facility] 06-08-2023 Note If ancillary studies were utilized, the following Laboratory Developed Test (LDT) disclaimer will apply: Under CLIA requirements, [facility] Laboratory is qualified to perform high complexity testing. For all ancillary stains, positive and negative controls stain appropriately. Performance characteristics of immunohistochemical and chromogenic in-situ hybridization tests have been deter mined by [facility]. These tests are used for clinical purposes, They should not be regarded as investigational or for research. [facility] 06-08-2023 Note ORIGINAL EXAMINATION: PELVIC ULTRASOUND 07/15/2022 TECHNIQUE: Transabdominal pelvic ultrasound with ovarian Doppler. COMPARISON: [facility] 08/12/2021 HISTORY: ORDERING SYSTEM PROVIDED HISTORY: Reason [...] Sign Date: 07/15/2022 5:09:33 PM Ordering Provider: [facility]06-08-2023 Nurse Progress note mother not feeling well, getting an IV restarted, will check back with later once feeling better. Digitally Signed by BERTHA Nagy on 07/15/2022 01:44 PM [id number] Note ORIGINAL EXAMINATION: CTA OF THE CHEST [...] Sign Date: 07/15/2022 12:59:44 PM Ordering Provider: [facility]06-08-2023 Note ORIGINAL EXAMINATION: CTA OF THE [...] Sign Date: 07/15/2022 12:59:44 PM Ordering Provider: [facility]06-07-2023 Anesthesiology Consult note Patient: JERMAIN GERARD [...] KHADIJAH NEVAREZ MD on 07/14/2022 09:17 PM [id number] Nurse Progress note Spoke with mom, pumping to establish milk supply for baby, pumping assessment done, using 24mm flanges, to pump on a comfortable setting, reviewed pumping guideline for now, q 2 hrs x 15 mins with one 4 rest, transfer of milk to ICU, questions answered, support given Digitally Signed by Amparo Woodruff LPN on 07/14/2022 03:43 PM [facility] ColumbusCoywpezd31-74-1235 Note If ancillary studies were utilized, the following Laboratory Developed Test (LDT) disclaimer will apply: Under CLIA requirements, [facility] Laboratory is qualified to perform high complexity testing. For all ancillary stains, positive and negative controls stain appropriately. Performance characteristics of immunohistochemical and chromogenic in-situ hybridization tests have been deter mined by [facility]. These tests are used for clinical purposes, They should not be regarded as investigational or for research. [facility] 06-07-2023 Note If ancillary studies were utilized, the following Laboratory Developed Test (LDT) disclaimer will apply: Under CLIA requirements, [facility] Laboratory is qualified to perform high complexity testing. For all ancillary stains, positive and negative controls stain appropriately. Performance characteristics of immunohistochemical and chromogenic in-situ hybridization tests have been deter mined by [facility]. These tests are used for clinical purposes, They should not be regarded as investigational or for research. [facility] 06-07-2023 Note If ancillary studies were utilized, the following Laboratory Developed Test (LDT) disclaimer will apply: Under CLIA requirements, [facility] is qualified to perform high complexity testing. For all ancillary stains, positive and negative controls stain appropriately. Performance characteristics of immunohistochemical and chromogenic in-situ hybridization tests have been deter mined by [facility]. These tests are used for clinical purposes, They should not be regarded as investigational or for research. [facility] 06-07-2023 Note If ancillary studies were utilized, the following Laboratory Developed Test (LDT) disclaimer will apply: Under CLIA requirements, [facility] is qualified to perform high complexity testing. For all ancillary stains, positive and negative controls stain appropriately. Performance characteristics of immunohistochemical and chromogenic in-situ hybridization tests have been deter mined by [facility]. These tests are used for clinical purposes, They should not be regarded as investigational or for research. [facility] 06-07-2023 Note If ancillary studies were utilized, the following Laboratory Developed Test (LDT) disclaimer will apply: Under CLIA requirements, [facility] is qualified to perform high complexity testing. For all ancillary stains, positive and negative controls stain appropriately. Performance characteristics of immunohistochemical and chromogenic in-situ hybridization tests have been deter mined by [facility]. These tests are used for clinical purposes, They should not be regarded as investigational or for research. [facility] 06-05-2023 Anesthesiology Progress note Patient: JERMAIN GERARD Age: 22 years [...] q4h, PRN: Nausea/Vomiting Documented Medications Documented Evening Lerona Oil 1000 mg oral capsule: 2,600 mg, [...] index 30+ - obesity / SNOMED CT 546863688 / Confirmed / SNOMED CT 651385681 / Confirmed / SNOMED CT 787448178 / Confirmed, Active Problems (3) Body mass index 30+ - obesity Histories Family History: No family history items have been selected or recorded. Procedure history: [place] tooth ([id number]) on 07/29/2021 at 21 Years. Social History Social & Psychosocial Habits No Data Available . Physical Examination Vital Signs 07/12/2022 11:51 EDT Temperature Oral 36.9 DegC Heart Rate Monitored 98 bpm Respiratory Rate 16 br/min Systolic Blood Pressure Non-Invasive 125 mmHg Diastolic Blood Pressure Non-Invasive 82 mmHg Vital Signs(last 24 hrs) Last Charted Temp Oral36.9 DegC (JUL 12 11:51) Heart Rate Winaqcplc87 bpm (JUL 12 11:51) Resp Rate 16 br/min (JUL 12 11:51) GDY449 mmHg (JUL 12 11:51) DBP82 mmHg (JUL 12 11:51) BMI34.51 (JUL 12 11:28) Measurements from flowsheet : Measurements 07/12/2022 11:28 EDT Height 160.6 cm Admission Weight 89 kg [place] Body Weight 52.93 kg BSA Admission 1.92 [...] motion. No deformity. Integumentary: Intact, Warm, Dry, Kiana. Neurologic: Alert, Oriented, Normal sensory. Review / [...] Nonreactive Designated Person #1 We May Share [facility] Boubacar [phone] Designated Person #1 Relationship Spouse Designated Person #2 We May Share MAK Madden [phone] Designated Person #2 Relationship Mother Privacy Restrictions Requested None Height 160.6 cm Admission Weight 89 kg [place] Body Weight 52.93 kg BSA Admission 1.92 [...] No further teaching needed Preferred Written Language Uzbek Preferred Spoken Language Uzbek Chief Complaint IOL Mode of Arrival Ambulatory Accompanied by Spouse Information Given by Patient Patient's Current Physicians none Emergency Contact Number Boubacar Gerard [phone] Reason For Visit OB Induction Belongings At Bedside Bra, Cell phone, Pen And Pencil Repairer, Credit cards, Earrings, Luggage, Money, Necklace, Pajamas, [...] Patient History OB . Assessment and Plan [place] Society of Anesthesiologists (ASA) physical status classification: Class II. Anesthetic Preoperative Plan Anesthetic technique: Choice. Postoperative pain management: Per surgeon. Digitally Signed by EBONY CHEN on 07/12/2022 01:25 PM [id number] Note. MICRO - Microbiology PROCEDURE: Urine Culture [...] Locations *1: This test was performed at: [facility], [address] [place] [address], [address]- , [facility] ([place])09-28-2021 Hospital Discharge instructions Patient Education 09/28/2021 17:21:45 [...] Follow these instructions at home: Medicines Take qwvd-nle-ejidsbz and prescription medicines only as told by [...] and water are not available, use hand pipefitter helper. ?Change your dressing as told by your [...] to keep your urine pale yellow. ?Take qmqr-ipl-amomkvf or prescription medicines. ?Eat foods that are [...] 01/05/2016 Document Revised: 01/06/2018 Document Reviewed: 07/20/2017 [employer] Patient Education 2020 [employer] 09/28/2021 17:21:45 1-SDS Discharge Instructions Template [...] us better serve our patients. Form: 1522 (08132) R: 05/16 Follow Up Care 09/17/2021 12:53:55 With:FEDERICO LIRIANO DO, Obstetrics & Gynecology, [facility] Address: [address] [phone] When: Unknown Comments:Schedule appointment as soon as possible With:FEDERICO LIRIANO DO, Obstetrics & Gynecology, [facility] Address: [address] [phone] When: Unknown Comments:Schedule appointment as soon as possible With:FEDERICO LIRIANO DO, Obstetrics & Gynecology, [facility] Address: [address] [address] [phone] When: Unknown [facility] 08-22-2022 Summary of episode note Discharge Instructions Thank you for allowing [facility] to assist you with your healthcare needs. The following is importantdischarge information regarding your hospital visit. Your Care Team PHYSICIAN, NONE Your Diagnosis Post-op pain What to do next Follow Up Appointments Follow Up with FEDERICO LIRIANO DO, Obstetrics & Gynecology, [facility] When Why: Schedule appointment as soon as possible Where: [address] [address] [phone] The Following Activity and Diet Have Been Ordered for You Discharge Activity - Ordered -- Sexual Melstone Restricted, Follow the post-procedure activity instructions provided [...] a day Unchanged herbal/ nutritional product (Evening Lerona Oil 1000 mg oral capsule) 2,600 Milligram [...] Every day Unchanged omega-3 polyunsaturated fatty acids ([place]-3 Fish Oil) 3,200 Milligram by mouth Once [...] Follow these instructions at home: Medicines Take hjnj-rdv-xzlysch and prescription medicines only as told by [...] and water are not available, use hand pipefitter helper. ? Change your dressing as told by [...] keep your urine pale yellow. ? Take ugwp-awn-srvsmbp or prescription medicines. ? Eat foods that [...] 01/05/2016 Document Revised: 01/06/2018 Document Reviewed: 07/20/2017 [employer] Patient Education 2020 [employer] [facility] SAME DAY SURGERY DISCHARGE INSTRUCTIONS [...] us better serve our patients. Form: 1522 (36720) R: 05/16 Additional Information VACCINATE! IT SAVES LIVES! Members of the community who have not yet received the COVID-19 vaccine and would like to receive it can visit one of [facility] vaccine clinics. There are many vaccine clinic locations within the [facility]. For locations and available times, please visit [email or web address]/. It is important to note that some COVID mobile vaccine clinics are held outdoors and may be canceled in rainy or stormy conditions. To learn more about pediatric vaccinations (ages 5-11), we invite you to visit the [facility] webpage. https://www.[email or web address]/pages/7512-Qbpwx-Idcdksghyyk-Emibmlkewd-Vttxj-Evz stions.htmlTo learn more about the COVID-19 vaccine, we invite you to visit the [facility] website for a list of frequently asked questions. [email or web address]-[email or web address]-Djmittel/vpxgh-Hxiyalc-Mbliapdjkg _Asked-Questions.pdf [facility] [employer] Patient Portal Access Instructions: Stay connected with your healthcare team and access your personal medical information anytime with the [facility] [employer] Patient Portal.If you would like a full copy of your medical records, please contact the [facility] Medical Records Department, Tuesday through Tuesday between 8a.m. and 4:30p.m. Please follow the directions below to access the portal: 1.Access the email account you provided upon registration to the [facility].2.Look for an invitation email from [facility].3.Open the email and access the invitation link: Accept Invitation to [facility]4.Fill in the required haney to create your account. Sign into [email or web address] with your username and password that you [...] you will allow to register on the [facility] Patient Portal for access to your information. You can also access the [facility] Patient Portal on the iSoftStone. Simply click on Health Records under GradFly and then click on the [address] logo. HOW TO SAFELY DISPOSE OF PRESCRIPTION [...] Call your local pharmacy or go to http://IPLocks.How do you roll?/9Z0Uv3p to find one close to you.3.Make use of household items: Use cat litter or old coffee grounds to dispose medications if other options arenot available. Mix your drugs with these household products, seal them in an airtight container andthrow it into the garbage. Call [facility]: [phone] to be sure your drugs can be [...] aware that I should contact my doctor. 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 Signature: Date/Time: Relationship to Patient: Witness Name/Signature: Date/Time: [facility]izqkqes66-90-4800 Anesthesiology Consult note Patient: JERMAIN GERARD Age: [...] ARACELY MARTINES MD on 09/28/2021 04:23 PM [facility]rligyki01-47-1537 Note Brief Operative Note: Date of Surgery: 09/28/2021 Pre-Op Diagnosis: Pelvic pain, infertility, obstruction of right fallopian tube on hysterosalpingogram Post-Op Diagnosis: Patent right fallopian tube, otherwise same as above Procedure: Diagnostic laparoscopy, chromotubation, hysteroscopy Surgeon: Dr. Liriano Academic Advising Director: Dr. Martinez PGY3, Dr. Basilio PGY1 Anesthesia: General EBL: 2mL IVF: 1500mL UOP: 300mL Complications: None Full operative dictation to follow. Digitally Signed by ANGELES MARTINEZ DO on 09/28/2021 04:11 PM [id number] Anesthesiology Consult note Patient: JERMAIN GERARD Age: [...] 09/28/21 5:00:00 EDT Documented Medications Documented Evening Lerona Oil 1000 mg oral capsule: Dose : 2,600 mg =, Oral, Daily, 0 Refill(s) Misc Medication: 0 Refill(s) Misc Medication: 0 Refill(s) [place]-3 Fish Oil: Dose : 3,200 mg =, [...] have been selected or recorded. Procedure history: [place] tooth ([id number]) on 07/29/2021 at 21 Years. Social History Social & Psychosocial Habits No Data Available . Physical Examination Vital Signs(last 24 hrs) Last Charted Resp Rate 16 br/min (SEP 28 14:13) Measurements from flowsheet : Measurements 09/28/2021 14:13 EDT Height 160 cm Height in inches 63 inch(es) Admission Weight 72.4 kg Weight Lbs 159.3 lb Weight Method Actual [place] Body Weight 52.38 kg Type of Scale Used Weigh bed Admission Body Mass Index 28.28 m2 General: Alert and oriented. Airway: Normal temporomandibular joint mobility, Normal mouth, Normal neck range of motion. Dentition Evaluation: Own teeth. Respiratory: Lungs are clear to auscultation. Cardiovascular: Normal rate. Heart Sounds: Normal. Neurologic: Alert, Oriented. Assessment and Plan [place] Society of Anesthesiologists (ASA) physical status classification: [...] YEIMY PRICE DO on 09/28/2021 02:57 PM [id number] Note ORIGINAL EXAMINATION: FLUOROSCOPIC HYSTEROSALPINGOGRAM 08/12/2021 10:25 [...] 08/12/2021 2:36:19 PM Ordering Provider: MIRIAM LOPEZ [facility]Ecdnnlhx42-14-0514 Note ORIGINAL EXAMINATION: FLUOROSCOPIC HYSTEROSALPINGOGRAM 08/12/2021 10:25 [...] Sign Date: 08/12/2021 2:36:19 PM [facility] KHADIJAH NEVAREZ MD: PERFORM, SIGN, VERIFY Event Display: Anesthesiology Consultation Authored Date: [id number] Patient: JERMAIN GERARD Age: 22 years Sex: [...] KHADIJAH NEVAREZ MD on 07/14/2022 09:17 PM [facility] Evaluation + Plan note No data available for this section [facility] Evaluation noteNo assessment information available [facility] Work Phone: Hospital Discharge instructions No data available for this section [facility] Progress note No data available for this section [facility] Proaprkq note Author Holly Ramirez [facility] Note Date/Time July 04, 2024 11:15 am [facility] [address], [address] [place] [address] OFFICE VISIT Date of Service: 07/04/24 MR#: [id number] Acct: [id number] Name: JERMAIN GERARD Rep #: [id number] : 2000 Provider: Dr. 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 occupational exposures/hazards: No pets and animals: Yes pets and animals: dog(s) history of recent travel: Yes ([place] - Beginning of Feb 2024) out of [...] 3-4 times per week duration: 15-30 minutes/day jerome/lutheran: None seatbelt use: always do you feel [...] Cosigner Signature: Date (if applicable) CC: ~ [facility] Work Phone: Progress note Author Jorge Valente [facility] Note Date/Time August 15, 2024 11:47 am [facility] [address], [address] [place] [address] OFFICE VISIT Date of Service: 08/15/24 MR#: [id number] Acct: [id number] Name: JERMAIN GERARD Rep #: [id number] : 2000 Provider: FABBY Valente Age/Sex: 24/F Location: [facility] Status: Signed Intake Vital Signs 07/04/24 10:51 07/30/24 15:24 08/15/24 11:21 Height 5 ft 5 in 5 ft 5 in 5 ft 5 in Weight: 214 lb 6 oz BMI 35.6 BP 109/77 Intake Visit Reasons: 30wk ob Slitter Cut Off Operator Required: No Is patient in pain?: No [...] 1 current occupational status: employed 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 Pushed for 2 hours and was OP. [...] Urine Glucose Negative Last Edit by Khadijah Jduith on 08/15/24 11:26 Office Urine Protein Trace [...] this visit. [place] appropriate handout given. 08/15/24 2360 <Electronically signed by Jorge gutierrez CNM> Date _ Jorge Casey FABBY Cosigner Signature: Date (if applicable) CC: ~ [facility] Work Phone: Progress note Author Jorge Valente [facility] Note Date/Time October 11, 2024 8:15am [facility] [address], [address] [place] [address] OFFICE VISIT Date of Service: 10/11/24 MR#: [id number] Acct: [id number] Name: JERMAIN GERARD Rep #: [id number] : 2000 Provider: FABBY Valente Age/Sex: 24/F Location[place] [facility] [place] Status: Signed Intake Vital Signs 08/28/24 14:41 10/02/24 14:55 10/11/24 07:57 Height 5 ft 5 in 5 ft 5 in 5 ft 5 in Weight: 219 lb 9 oz BMI 36.5 BP 112/79 Intake Visit Reasons: 38wk ob *trying for Chief Complaint: 38wk OB Slitter Cut Off Operator Required: No Is patient in pain?: No [...] 1 current occupational status: employed 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 Pushed for 2 hours and was OP. [...] Cosigner Signature: Date (if applicable) CC: ~ [facility] Work Phone: Reason for referral (narrative)No reason for referral [facility] Work Phone: Summary Purpose Family History No Family History Records Found Relationship Condition Age at Onset Recorded Date/T danelle mother Asthma Unknown grandfather Chronic obstructive pulmonary disease Unk nown Diabetes mellitus Unknown Advance Directives No Advanced Directives Records Found Advance Directive Response Recorded Date/ Time Living Will No June 17, 2023 8 :25pm Power of Food And Beverage Server No June 17, 2023 8:25pm Chief Complaint [...] 11, 2024 7:51am Supervision of high-risk Lizae [facility] 2024 7:51am History of asthma October 16, 2024 1:19pm History of delivery, currently October 16, 2024 1:19pm History of molar October 1:19pm Obesity affecting October 1:19pm October 16, 2024 1:19pm Supervision of high-risk Guicho [facility] 2024 1:19pm Additional Source Comments INFORMATION SOURCE (unrecogn ized section and content) DATE CREATED AUTHOR 07/31/2021 [facility] DATE CREATED AUTHOR AUTHOR'S ORGANIZ ATION 08/13/2022 [facility] ([place]) DATE CREATED AUTHOR AUTHOR'S ORGANIZ ATION 05/28/2024 [facility] DATE CREATED AUTHOR AUTHOR'S ORGANIZ ATION 10/18/2024 [facility] Care Team (unrecognized sect ion and [...] End: May 09, 2024 Linh Obregon NP, PIANO TEACHER-C Attending Provider Active Start: May 09, 2024 [...] End: July 30, 2024 Linh Obregon NP [employer] TE[employer]C Attending Provider Active Start: July 30, 2024 [...] End: August 28, 2024 Linh Obregon NP [employer] TE[employer]ER-C Attending Provider Active Start: August 28, 2024 [...] End: July 30, 2024 Linh Obregon NP, PI[employer] TEACHER-C Attending Provider Active Start: July 30, 2024 [...] End: August 28, 2024 Linh Obregon NP [employer]O TEACHER-C Attending Provider Active Start: August 28, 2024 [...] September 24, 2024 End: September 24, 2024 Jogre Valente CNM Attending Provider Active S tart: [...] End: July 30, 2024 Linh Obregon NP, [employer]O TEACHER-C Attending Provider Active Start: July 30, 2024 [...] End: August 28, 2024 Linh Obregon NP, PIANO TEACHER-C Attending Provider Active Start: August 28, 2024 [...] BE BASED ON THE PRIMARY CLINICAL RECORDS. [employer] provides no warranty or guarantee of the accuracy or completeness of information in this document.
[2024-10-20 05:11] LABS: Hematocrit 33.4 % (37-47); Hemoglobin 11.3 g/dL (12.0-15.0); Immature Granulocytes Count 0.050 X10^3/uL (0.0-0.0); Mean Corp Hgb Conc 33.8 g/dL (32-36); Mean Corpuscular Volume 90.3 fL (81-99); Mean Platelet Vol. 9.9 fl (6.2-12.0); NRBC Flagged by Analyzer 0 % (0-5); Platelet Count 264 K/mm3 (150-450); RBC Distribution Width CV 13.5 % (11.6-14.6); RBC Distribution Width SD 44.6 fl (35.1-43.9); Red Blood Count 3.70 M/mm3 (4.2-5.4); White Blood Count 10.0 K/mm3 (4.4-11.0)
[2024-10-20 06:14] LABS: Syphilis Antibodies Nonreactive (Nonreactive)
--- NOTE | 2024-10-20 08:23 | HP.PCM.OB_ITS ---
HPI - General General Date of Admission: 10/20/24 HPI Narrative JERMAIN BAIRES, is a 24 F who presents IAL regular ctx now 5 cm -1 no vb srom clear fluid at 9:45 last night, spontaneous ctx increasing this am Maternal Data Information NATAN Calculator Estimated Delivery Date Method Current WG Current Estimate 10/23/24 LMP (Certain) 39w 4d Other Estimates 10/25/24 Ultrasound #1 39w 2d PFSH PFSH Medical History Early stage of Partial hydatidiform mole Wears glasses Home Medications ?Medication ?Instructions ?Recorded ?Last Taken ?Type cholecalciferol (vitamin D3) 10 10 mcg PO QDAY pregnan cy 03/02/24 10/19/24 History mcg (400 unit) capsule docosahexaenoic acid 200 mg 200 mg PO DAILY 03/02/24 10/19/24 History capsule ( DHA) ferrous sulfate 325 mg (65 mg 325 mg PO QDAY pregn 07/0110/19/24 History iron) tablet Allergy/AdvReac Type Severity Reaction Status Date / Time No Known Allergies Allergy Verified 10/20/24 05:12 Family History Mother Asthma Grandfather COPD (chronic obstructive pulmonary disease) Diabetes Surgical History S/P D&C (status post dilation and curettage) H/O laparoscopy History of delivery Social History adopted: No household members: spouse and children number of children: 1 current occupational status: employed 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 occupational 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/hazards: No pets and animals: Yes pets and animals: dog(s) history of recent travel: Yes ([place] - Beginning of Feb 2024) out of state: Yes out of country: No sexually active: Yes Smoking Status: Never smoker second hand exposure: No alcohol intake: current alcohol intake frequency: holidays/special occasions only details: not during substance use type: does not use well-balanced diet: daily or most days caffeine: Yes eating out: rarely or never during the past year weight has: remained stable what type of physical activity do you participate in: walking frequency: 3-4 times per week duration: 15-30 minutes/day jerome/latter day: None seatbelt use: always do you feel safe at home: Yes additional social history: : Boubacar grullon History 3 Elective abortions Hx Para 1 Spontaneous abortions 1 Hx # Term Pregnancies Ectopic pregnancies Hx # Pregnancies Multiple births # of living children 1 Past Pregnancies Del. Date Name GA/Weeks Outcome Route Bth Weight Gen Labor Lgth Anesthesia Del Locatn Provider FOB 07/14/22 Bora 39 live - full term 8lbs 6oz Female epidural Bernabe Hamlin 06/08/23 6 molar Delivery Date: 07/14/22 Last Updated by: Marcela Patrick RN C[facility] d/t stuck in canal & mec aspirate - NICU x6days Delivery Date: 06/08/23 Last Updated by: Marcela Patrick RN D&C @ about 8weeks Visit Details Expected Delivery Route/Plan wants to try patient counseled regarding risks/benefits of trial of labor versus repeat . ACOG/uptodate education given to patient. 65 % likelihood of success per calculator TOLAC consent form signed: signed 10/16 Plans Covid status: [] Flu vaccine: [] Tdap vaccine: declined Rhogam: NA LARC form signed: yes Problem list reviewed and updated with the most current plan of care details and appropriate orders placed. Relevant counseling for the gestational age provided. Continue routine care and follow up unless otherwise noted in visit notes/problem list details OB Flowsheet Initial Weight: 192 lb Date -?-?-?-?-?-?-?-?-?-?-?-?- EGA Weight BP Urine Prot -?-?-?-?-?-?-?-?-?-?-?-?- Glucose FHR FuHt Pres Dilation -?-?-?-?-?-?-?-?-?-?-?-?- Effaced St Visit Note 03/16/24 -?-?-?-?-?-?-?-?-?-?-?-?- 8w 3d 192 lb 6 oz (+6 oz) 119/79 -?-?-?-?-?-?-?-?-?-?-?-?- 165 -?-?-?-?-?-?-?-?-?-?-?-?- JV- CRL consiste nt with first ultrasound. desires NIPT. will return in 2 weeks to do all labs. 04/13/24 -?-?-?-?-?-?-?-?-?-?-?-?- 12w 3d 193 lb 6 oz (+1 lb 6 oz) 118/84 Negative -?-?-?-?-?-?-?-?-?-?-?-?- Negative 168 -?-?-?-?-?-?-?-?-?-?-?-?- KW-no vb/crampin zach JAIN ordered. 05/09/24 -?-?-?-?-?-?-?-?-?-?-?-?- 16w 1d 196 lb 6 oz (+4 lb 6 oz) 112/76 Negative -?-?-?-?-?-?-?-?-?-?-?-?- Negative 152 -?-?-?-?-?-?-?-?-?-?-?-?- MH-No VB. Nausea persists but not daily. 06/08/24 -?-?-?-?-?-?-?-?-?-?-?-?- 20w 3d 204 lb 2 oz (+12 lb 2 oz) 107/74 Negative -?-?-?-?-?-?-?-?-?-?-?-?- Negative 145 -?-?-?-?-?-?-?-?-?-?-?-?- SM- no vb lof go od fm nor euglar ctx 07/04/24 -?-?-?-?-?-?-?-?-?-?-?-?- 24w 1d 209 lb 8 oz (+17 lb 8 oz) 110/76 Negative -?-?-?-?-?-?-?-?-?-?-?-?- Negative 137 25 -?-?-?-?-?-?-?-?-?-?-?-?- JV- no lof, vagi nal bleeding, and ++ fm. glucola next visit. declines tdap. 07/30/24 -?-?-?-?-?-?-?-?-?-?-?-?- 27w 6d 216 lb (+24 lb) 118/80 Negative -?-?-?-?-?-?-?-?-?-?-?-?- Negative 151 27 -?-?-?-?-?-?-?-?-?-?-?-?- -No VB, LOF.Go od Fm. 28 wk labs pending. Larc 08/15/24 -?-?-?-?-?-?-?-?-?-?-?-?- 30w 1d 214 lb 6 oz (+22 lb 6 oz) 109/77 Trace -?-?-?-?-?-?-?-?-?-?-?-?- Negative 160 31 -?-?-?-?-?-?-?-?-?-?-?-?- KW- no vb/lof/ct x. good fm desires and would like to go to 41 weeks gestation. C/S records requested but according to pt was due to malposition at [place]. Pushed for 2 hours and was OP. 08/28/24 -?-?-?-?-?-?-?-?-?-?-?-?- 32w 0d 218 lb 4 oz (+26 lb 4 oz) 115/78 Negative -?-?-?-?-?-?-?-?-?-?-?-?- Negative 147 33 -?-?-?-?-?-?-?--?-?-?-?-?- -No VB, LOF. G ood FM. 09/11/24 -?-?-?-?-?-?-?-?-?-?-?-?- 34w 0d 218 lb 1 oz (+26 lb 1 oz) 118/76 Negative -?-?-?-?-?-?-?-?-?-?-?-?- Negative 135 34 -?-?-?-?-?-?-?-?-?-?-?-?- JV- discussed TO LAC and risks vs benefits. does not appear that she was a failure to progress. was taken to surgery after 1.5 hrs of pushing and developed tachycardia. both mom and baby ended up in ICU after for treatment of sepsis. understands risks. will bring back tolac consent to next visit. 09/24/24 -?-?-?-?-?-?-?-?-?-?-?-?- 35w 6d 217 lb 5 oz (+25 lb 5 oz) 119/81 Negative -?-?-?-?-?-?-?-?-?-?-?-?- Negative 130 36 Cephalic 1 -?-?-?-?-?-?-?-?-?-?-?-?- 30 -3 KW- no vb/ lof/ctx. good fm. GSB today. no concerns. consent returned 10/02/24 -?-?-?-?-?-?-?-?-?-?-?-?- 37w 0d 222 lb 4 oz (+30 lb 4 oz) 122/84 Negative -?-?-?-?-?-?-?-?-?-?-?-?- Negative 160 37 Cephalic 1 .5 -?-?-?-?-?-?-?-?-?-?-?-?- 30 -2 SM- no vb lof good fm n oregular ctx 10/11/24 -?-?-?-?-?-?-?-?-?-?-?-?- 38w 2d 219 lb 9 oz (+27 lb 9 oz) 112/79 Negative -?-?-?-?-?-?-?-?-?-?-?-?- Negative 150 39 Cephalic 3 -?-?-?-?-?-?-?-?-?-?-?-?- 40 -2 KW- no vb/ lof/ctx. good fm. preferences reviewed. minimal interv ention. 10/16/24 -?-?-?-?-?-?-?-?-?-?-?-?- 39w 0d 220 lb 9 oz (+28 lb 9 oz) 123/77 Negative -?-?-?-?-?-?-?-?-?-?-?-?- Negative 150 40 Cephalic 3 -?-?-?-?-?-?-?-?-?-?-?-?- 40 -2 SM- no vb lof good fm n oreuglar ctx now 3 cm membranes swept NST FHR Rate Baby A Baseline: 130 Variability:: Moderate Accelerations:: 15 x 15 Decelerations:: None NST Reactive:: Yes FHR Category:: Category I Uterine Activity:: q3-5 ROS Constitutional Constitutional: Reports systems reviewed and no addt'l complaints, except as documented ENT HEENT: Reports systems reviewed and no addt'l complaints, except as documented Cardiovascular Cardiovascular: Reports systems reviewed and no addt'l complaints, except as documented Respiratory/Chest Respiratory/Chest: Reports systems reviewed and no addt'l complaints, except as documented Gastrointestinal Gastrointestinal: Reports systems reviewed and no addt'l complaints, except as documented and nausea; Denies abdominal pain Genitourinary Genitourinary: Reports systems reviewed and no addt'l complaints, except as documented, contractions Details: present and frequency (regular ) and movement Details: present Musculoskeletal Musculoskeletal: Reports systems reviewed and no addt'l complaints, except as documented Integumentary Integumentary: Reports as per HPI Neurologic Neurologic: Reports systems reviewed and no addt'l complaints, except as documented Endocrine Endocrinology: Reports systems reviewed and no addt'l complaints, except as documented Vital Signs Vital Signs Vital Signs: 10/20/24 04:29 10/20/24 04:29 10/20/24 04:29 Temperature Temperature Source Temporal Pulse Rate 100 Respiratory Rate Blood Pressure 134/86 H BP Systolic 134 BP Diastolic 86 Pulse Ox 10/20/24 04:29 10/20/24 04:29 10/20/24 04:30 Temperature 97.5 F L Temperature Source Pulse Rate 101 H Respiratory Rate 14 Blood Pressure BP Systolic BP Diastolic Pulse Ox 10/20/24 04:30 10/20/24 07:18 10/20/24 07:18 Temperature Temperature Source Pulse Rate 92 Respiratory Rate Blood Pressure 127/74 H BP Systolic 127 BP Diastolic 74 Pulse Ox 97 10/20/24 07:18 10/20/24 07:18 10/20/24 07:18 Temperature Temperature Source Temporal Pulse Rate Respiratory Rate 16 Blood Pressure BP Systolic BP Diastolic Pulse Ox 96 10/20/24 07:18 Temperature 97.7 F L Temperature Source Pulse Rate Respiratory Rate Blood Pressure BP Systolic BP Diastolic Pulse Ox Weight Weight: 222 lb 0.088 oz Body Mass Index (BMI) 39.3 Physical Exam Const alert, oriented x3 and healthy appearing Constitutional Narrative: uncomfortable with contractions HEENT normocephalic and moist oral mucous membranes Head and Scalp: atraumatic Neck full ROM, no lymphadenopathy, supple and thyroid normal General: trachea midline Thyroid: thyroid normal Lymph Lymphatic: no lymphadenopathy noted Chest inspection of chest normal Resp normal respiratory effort Cardio regular rate GI soft to palpation and non-tender GI Narrative: gravid Inspection: gravid external exam normal Bimanual Exam - Vag & Uterus: uterus non-tender Manual OB Exam: estimated gestational size appropriate, presentation cephalic, dilated, effaced and station Extremity normal to inspection General Extremity: Negative for edema Skin no rashes or lesions noted Neuro deep tendon reflexes 2+ bilaterally Motor Exam: strength 5/5 throughout and clonus absent Psych mental status grossly normal Labs Labs Labs: Blood Type O POSITIVE Antibody Screen NEGATIVE Hct 33.4 % (37-47) L Hgb 11.3 g/dL (12.0-15.0) L Pap Smear Negative Obstetrics Ultrasound Syphilis Total Ab Nonreactive (Nonreactive) Rubella IgG Antibody Reactive (Nonreactive) Hep Bs Antigen Non-Reactive (Nonreactive) Hepatitis C Antibody Non-Reactive (Nonreactive) Chlamydia DNA (LISA) Negative (Negative) N.gonorrhoeae DNA (LISA) Negative (Negative) HIV 1&2 Antibody Nonreactive (Nonreactive) Glucose 1 Hr 50 gm 114 mg/dL (70-140) Assessment & Plan (1) Obesity affecting : QUALIFIERS: Trimester: second trimester Obesity type affecting : unspecified obesity Qualified Code(s): O99.212 - Obesity com plicating , second trimester COMMENT: BMI 30.1, HgBA1C ordered w/NOB (2) History of delivery, currently : COMMENT: x1 (2022), Desires , c/s 10/30 JV. (3) History of molar : COMMENT: June 2023- after delivery draw hcg to zero (4) Supervision of high-risk : QUALIFIERS: Trimester: third trimester Qualified Code(s): O09.93 - Supervision of high risk , unspecified, third trimester COMMENT: PRR, , NATAN 10/23/24, girl (name secret) PC: Bora, : Boubacar (5) : QUALIFIERS: Weeks of gestation: 39 weeks Qualified Code(s): Z3A.39 - 39 weeks gestation of COMMENT: gbs neg, NIPT low risk (6) History of asthma: COMMENT: Childhood (7) Active labor at term: PLAN: Plan Patient presents IAL, plan expectant management for , pitocin/AROM PRN if needed. Pain management: open to epidural but prefer minimal intervention. GBS gbs neg. Management of any complications: TOLAC I have reviewed the [facility] and made any clinically relevant updates.
[2024-10-20] MEDS: Lactated Ringers 1,000 ML 50 ML IV (15:12)
[2024-10-20] MEDS: fentaNYL 100 MCG/2 ML Ampul IV ×2 (15:14→15:32)
[2024-10-20] MEDS: 0.9% Saline Lock 10 ML Syringe IV (15:16)
[2024-10-20] MEDS: Oxytocin 15 Units/NS 250ml 15 UNITS/250 ML IV.SOLN 2 UNITS IV (15:30)
[2024-10-20] MEDS: Lactated Ringers 1,000 ML 999 ML IV (17:55)
--- NOTE | 2024-10-20 18:32 | PCM.PN.BLA ---
Progress Note cat I tracing 130 mod variability OP presentaiton 7 cm stretchy recommend epidural pit turned off due to hyperstim. getting epidural now
[2024-10-20] MEDS: fentaNYL-bupivacaine (epidural) 100 ML BAG EPIDURAL (18:59)
[2024-10-20] MEDS: LACTATED RINGERS 500 ML 999 ML IV (22:08)
[2024-10-21] VITALS (28 sets, daily range): BP systolic 89–124; BP diastolic 1–69; PULSE 93–137; RESP 15–23; TEMP 36.4–38.7; O2SAT 95–98
[2024-10-21] MEDS: fentaNYL-bupivacaine (epidural) 100 ML BAG EPIDURAL (00:03)
[2024-10-21] MEDS: Ampicillin 2 GM in 0.9% Normal Saline (100mL MB+) 100 ML IV ×2 (01:09→07:03)
[2024-10-21] MEDS: Lactated Ringers 1,000 ML 200 ML IV (01:20)
[2024-10-21] MEDS: Gentamicin IV 260 MG in Dextrose 5%-Water (50mL Bag) 50 ML 100 MG IVPB (01:46)
--- NOTE | 2024-10-21 02:20 | PCM.PN.BLA ---
Progress Note discussed with patient, s/p epidural and now pitocin, cervical swelling still present and not reducible, now 8 cm not 9, head 0 to +1 but OP. recommend proceeding with repeat patient agrees. pillow will be placed.
--- NOTE | 2024-10-21 02:22 | OP.PCM_ITS ---
Assessment & Plan (1) Failed trial of labor following previous , antepartum: (2) History of asthma: COMMENT: Childhood (3) : QUALIFIERS: Weeks of gestation: 39 weeks Qualified Code(s): Z3A.39 - 39 weeks gestation of COMMENT: gbs neg, NIPT low risk (4) Supervision of high-risk : QUALIFIERS: Trimester: third trimester Qualified Code(s): O09.93 - Supervision of high risk , unspecified, third trimester COMMENT: PRR, , NATAN 10/23/24, girl (name secret) PC: Bora, : Boubacar (5) History of molar : COMMENT: June 2023- after delivery draw hcg to zero (6) History of delivery, currently : COMMENT: x1 (2022), Desires , c/s 10/30 JV. (7) Obesity affecting : QUALIFIERS: Obesity type affecting : unspecified obesity Trimester: second trimester Qualified Code(s): O99.212 - Obesity complicating , second trimester COMMENT: BMI 30.1, HgBA1C ordered w/NOB (8) Active labor at term: (9) delivery delivered: COMMENT: RLTCS failed TOLAC Maternal Data Information NATAN Calculator Estimated Delivery Date Method Current WG Current Estimate 10/23/24 LMP (Certain) 39w 5d Other Estimates 10/25/24 Ultrasound #1 39w 3d Operative Report (OB) Procedure Details Date of Procedure: 10/21/24 Procedure Start Time: 02:59 Pre-Operative Diagnosis: Other (failure to progress arrest of dilation) Other Pre-Operative diagnosis: see a/p comments Post-Operative Diagnosis: Same as Pre-operative diagnosis Classification: Scheduled Type of Anesthesia: Epidural Converted to Spinal Special Medications: none Antibiotic Given: Clindamycin 600mg IV x1 and Gentamicin 1.5mg/kg IV x1 and Other (ampicillin) Drain: Palam to straight drain Estimated Blood Loss: 900 Fluids Replaced: crystalloid Findings Description of surgery: the pillow was placed prior to going to the back due to the low station. The patient was placed in the dorsal supine position with leftward tilt. Patient was prepped and draped in the normal sterile fashion. Pfannenstiel skin incision was made with the scalpel and carried through to the underlying layer of fascia with the scalpel. Fascia was nicked in the midline and the incision extended laterally. The rectus bellies were dissected off superiorly and inferiorly with out complication both sharply and bluntly. The peritoneum was entered digitally. The incision was stretched and a low transverse uterine incision was made with the scalpel. The infant's head was delivered atraumatically followed by the anterior and posterior shoulders without complication the rest of the infant delivered. The cord was clamped and cut and the infant was handed off to awaiting nurse. The placenta was delivered spontaneously immediately following and was noted to be intact and have a three- vessel cord. The uterus was exteriorized cleared of all clots and debris, noted to be very swollen, and the incision was noted to have a cervical laceration centrally down and a tear to the right of center. the extension was closed in a double layer and the incision closed in a single layer closure using #1 Monocryl. The ovaries and fallopian tubes were noted to be within normal limits. The uterus was returned to the maternal abdomen and gutters were cleared of all clots and debris. The peritoneum was closed with 3-0 Monocryl in a running fashion. Gloves were changed prior to fascial closure. Fascia was closed with 0 PDS in a running fashion. Subcutaneous tissue was copiously irrigated and the skin was closed with 3-0 Monocryl in a subcuticular fashion. Mepilex dressing was applied without complication. Patient was taken to recovery in stable condition. It was discussed with the patient that based on the clinical information obtained during this encounter, combined with her history, at this time I would recommend cesareans for future deliveries if further pregnancies are desired. Surgical findings: nl uterus tubes ovaries, extensive swelling of uterine wall and other tissues. minimal intraabdominal scarring but some scarring of abdominal wall Presentation: Vertex Amniotic Membrane Rupture Type: Artificial Amniotic Fluid Description: Clear Specimen collected: Yes Description of specimen(s) removed: placenta and baby Cord Vessel Description: 3 Vessels Delayed Cord Clamping: Yes Dishroom Attendant solutions executive cloud sales: Yes Veneer Gluer: Juan Manuel Judd Tasks completed by assistant technician: Opening & closing, Retracting and Other (assisting in delivery of the infant) Additional licensed nursing assistant?: No Complications Complications: No Admit VTE Documentation VTE Present on Admission: No VTE Mechan Device Prophylaxis: SCD's Procedures Urinary/Genital [id number]: [id number] Delivery [facility]
[2024-10-21] MEDS: Clindamycin 900 MG/50 ML BAG 75 MG IV (02:35)
--- NOTE | 2024-10-21 02:36 | DCINST_ITS ---
Discharge Instructions DC O2, CPAP, BIPAP needs Home O2 Discharge instructions: No Dressing / Incision Discharge Activity: May Not Drive (for 2 weeks or while taking narcotic pain medications.), May Shower and May Take a Tub Bath (in 7 days) May shower in (days): 0 May resume sexual activity in: 4-6 weeks Weight Bearing Status: Full weight bearing Lifting Restrictions: 20 pounds Dressing / Incision Call your doctor if your incision/area has: Continuous Slow Oozing, Sudden Increased Bleeding, Increased Pain/ Swelling, Increased Redness and Foul Smelling Discharge Call your doctor if you observe: Fever of 101 or Higher and Using more than 1 pad per hour (for 2 hours) Suture Line Care: Avoid Pulling/Pushing and Avoid Pinching/Bending Cleanse incision/area with: Soap & Water and Keep Dressing Clean & Dry Follow Up Care Please Follow Up With: Laay Pugh MD When: Call [phone] to make an appointment for an incision check in 1-2 weeks. Test Results: Test results from this visit will be discussed in further detail at your follow- up appointment, if applicable. Discharge Plan Admission Admit Date/Time: 10/20/24 04:45 Attending Provider: Laya Pugh Primary Care Provider: Care PhysicianNadira Primary Discharge Orders/Prescriptions Prescriptions: New oxycodone-acetaminophen [Percocet] 5-325 mg tablet 1 tab PO Q4H PRN (Reason: pain) 7 Days Qty: 20 0RF naproxen 500 mg tablet 500 mg PO BID PRN PRN (Reason: Pain) Qty: 30 1RF No Action DHA 200 mg capsule 200 mg PO DAILY cholecalciferol (vitamin D3) 10 mcg (400 unit) capsule 10 mcg PO QDAY ferrous sulfate 325 mg (65 mg iron) tablet 325 mg PO QDAY Referrals / Follow Up: Care PhysicianNadira Primary [Primary Care Provider] - Disposition Disposition (needs filled in before D/C Order can be placed): Home, Self Care
[2024-10-21] MEDS: Lidocaine 1% (20 ml mdv) 20 ML Vial INFILT (02:40)
[2024-10-21] MEDS: Lidocaine 2% (5ml sdv) 5 ML VIAL.MPF 20 ML EPIDURAL (02:40)
[2024-10-21] MEDS: morphine PF (epidural) 5 MG/10 ML Vial IV (03:16)
[2024-10-21] MEDS: TRANEXAMIC ACID 1,000 MG/10 ML ML 1000 MG IV (03:37)
[2024-10-21] MEDS: fentaNYL 100 MCG/2 ML Ampul IV (03:38)
[2024-10-21] MEDS: Lactated Ringers 1,000 ML 100 ML IV ×2 (04:22→12:25)
[2024-10-21] MEDS: Oxytocin 15 Units/NS 250ml 15 UNITS/250 ML IV.SOLN 83 UNITS IV (04:22)
[2024-10-21] MEDS: Ketorolac 30 MG/ML Syringe IV ×3 (04:42→17:56)
[2024-10-21] MEDS: 0.9% Saline Lock 10 ML Syringe IV ×2 (04:42→17:56)
[2024-10-21] MEDS: Lactated Ringers 1,000 ML 999 ML IV (10:10)
[2024-10-21] MEDS: Senna/Docusate Sodium 1 Tablet PO (12:45)
[2024-10-22] MEDS: Ketorolac 30 MG/ML Syringe IV (00:01)
[2024-10-22] MEDS: 0.9% Saline Lock 10 ML Syringe IV (00:02)
[2024-10-22 00:07] VITALS: BP 102/57; PULSE 106; RESP 16; TEMP 36.8; O2SAT 98
[2024-10-22 05:04] VITALS: BP 112/64; PULSE 107; RESP 16; TEMP 36.6; O2SAT 99
[2024-10-22 05:05] VITALS: BP 112/64; PULSE 107
[2024-10-22 06:14] LABS: Hematocrit 27.1 % (37-47); Hemoglobin 9.1 g/dL (12.0-15.0); Mean Corp Hgb Conc 33.6 g/dL (32-36); Mean Corpuscular Volume 91.2 fL (81-99); Mean Platelet Vol. 9.5 fl (6.2-12.0); Platelet Count 214 K/mm3 (150-450); RBC Distribution Width CV 14.0 % (11.6-14.6); RBC Distribution Width SD 46.5 fl (35.1-43.9); Red Blood Count 2.97 M/mm3 (4.2-5.4); White Blood Count 17.0 K/mm3 (4.4-11.0)
[2024-10-22 09:45] VITALS: BP 109/57; PULSE 109; RESP 16; TEMP 36.9; O2SAT 97
[2024-10-22] MEDS: Senna/Docusate Sodium 1 Tablet PO (09:50)
--- NOTE | 2024-10-22 11:17 | PCM.PN.OB ---
Subjective Subjective Patient doing well without complaints. Tolerating PO. Ambulating and voiding without difficulty. feeding well. Denies chest pain, shortness of breath, calf pain/swelling, fevers, chills, lightheadedness. Objective Data Objective Data Vital Signs: Vital Signs Temp Pulse Resp BP Pulse Ox O2 Del Method 98.4 F 109 H 16 109/57 L 97 Room Air 10/22/24 09:45 10/22/24 09:45 10/22/24 09:45 10/22/24 09:45 10/22/24 09:45 10/22/24 09:45 Oxygen Delivery Method Room Air Weight: 222 lb 0.088 oz Body Mass Index (BMI) 39.3 Intake & Output: Intake and Output for Last 24 Hours 10/20/24 10/21/24 10/22/24 23:59 23:59 23:59 Intake Total 2507.47 / 2507.47 3324.64 / 3324.64 Output Total 3600 / 3600 Balance 2507.47 / 2507.47 -275.36 / -275.36 Lab / Micro Data 10/22/24 06:05 Labs: Laboratory Results - last 24 hr 10/22/24 06:05: WBC 17.0 H, RBC 2.97 L, Hgb 9.1 L, Hct 27.1 L, MCV 91.2, MCH 30.6, MCHC 33.6, RDW Std Deviation 46.5 H, RDW Coeff of Emery 14.0, Plt Count 214, MPV 9.5 ROS Constitutional Constitutional: Reports systems reviewed and no addt'l complaints, except as documented Cardiovascular Cardiovascular: Reports systems reviewed and no addt'l complaints, except as documented Respiratory/Chest Respiratory/Chest: Reports systems reviewed and no addt'l complaints, except as documented Gastrointestinal Gastrointestinal: Reports systems reviewed and no addt'l complaints, except as documented Physical Exam Const alert, oriented x3 and no apparent distress HEENT Head and Scalp: atraumatic Resp normal respiratory effort GI soft to palpation and non-tender Inspection: incision intact, healing well and drainage (none) Bimanual Exam - Vag & Uterus: uterus non-tender Uterus Palpation: uterus fundus firm (below Umbilicus) Assessment & Plan (1) delivery delivered: COMMENT: SM RLTCS failed TOLAC PLAN: Plan s/p LTCS PPD # 1 1. routine post care 2. breast feeding- support given 3. rh positive 4. rubella immune
[2024-10-22 15:29] VITALS: BP 109/67; PULSE 98; RESP 16; TEMP 36.5; O2SAT 97
== END 2024-10-22 17:10 | disposition home or self-care (01) | DRG 788 ==
LOC: WPOUT 04:46 → WP 04:46
PROVIDERS: Admitting Provider Obstetrics & Gynecology; Referring Provider Obstetrics & Gynecology; Visit Provider Obstetrics & Gynecology
DX: O99.214 Obesity complicating childbirth (principal); O34.211 Maternal care for low transverse scar from previous cesarean delivery; O66.41 Failed attempted vaginal birth after previous cesarean delivery; Z37.0 Single live birth; Z3A.39 39 weeks gestation of pregnancy
CPT/HCPCS: 59025; 59050; 76815; 85025; 85027; 86780; 86850; 86900; 86901; 99221; A4216; G0378; J2405